=== PATIENT | female | born 1940 | race Caucasian/White ===

== ENCOUNTER → 2017-11-19 | Outpatient (CLI) | payer MEDICARE ==
[2017-11-19 11:14] LABS: Basophils # (A) 0.1 k/uL (0-0.2); Basophils % (A) 1 %; Eosinophils # (A) 0.3 k/uL (0-0.7); Eosinophils % (A) 6 %; HCT 45.3 % (34.0-46.0); HGB 14.4 gm/dL (11.4-16.0); Lymphocytes # (A) 1.5 k/uL (1.0-4.8); Lymphocytes % (A) 26 %; MCH 29.7 pg (25.0-35.0); MCHC 31.8 g/dL (31.0-37.0); MCV 93.5 fL (80.0-100.0); Mean Platelet Volume 7.1; Monocytes # (A) 0.7 k/uL (0-1.0); Monocytes % (A) 11 %; Neutrophils % (A) 53 %; Platelet Count 264 k/uL (150-450); RBC 4.84 m/uL (3.80-5.40); RDW 13.3 % (11.5-15.5); WBC 5.7 k/uL (3.8-10.6)
[2017-11-19 11:23] LABS: ALT 24 U/L (9-52); AST 20 U/L (14-36); Albumin 3.9 g/dL (3.5-5.0); Alkaline Phosphatase 63 U/L (38-126); Anion Gap 10 mmol/L; Blood Urea Nitrogen 24 mg/dL (7-17); Calcium 9.2 mg/dL (8.4-10.2); Carbon Dioxide 30 mmol/L (22-30); Chloride 106 mmol/L (98-107); Cholesterol 157 mg/dL (<200); Glucose 90 mg/dL (74-99); HDL Cholesterol 45 mg/dL (40-60); LDL Cholesterol,Calculated 89 mg/dL (0-99); Magnesium 2.1 mg/dL (1.6-2.3); Phosphorus 3.5 mg/dL (2.5-4.5); Potassium 4.7 mmol/L (3.5-5.1); Sodium 146 mmol/L (137-145); Total Bilirubin 0.4 mg/dL (0.2-1.3); Total Protein 6.7 g/dL (6.3-8.2); Triglycerides 116 mg/dL (<150)
[2017-11-19 11:38] LABS: T4, Free (Free Thyroxine) 2.36 ng/dL (0.78-2.19)
[2017-11-19 15:25] LABS: Vitamin D 25 Hydroxy 39.4 ng/mL (30.0-100.0)
[2017-11-19 16:27] LABS: Parathyroid Hormone Intact 57.6 pg/mL (14.0-72.0)
== END | disposition home or self-care (01) ==
LOC: LABWHC1 10:26
PROVIDERS: ATTEND Family Medicine
DX: E78.5 Hyperlipidemia, unspecified (principal); I12.9 Hypertensive chronic kidney disease with stage 1 through stage 4 chronic kidney disease, or unspecified chronic kidney disease; N18.3 Chronic kidney disease, stage 3 (moderate); E03.9 Hypothyroidism, unspecified
CPT/HCPCS: 36415; 80053; 80061; 82043; 82306; 82570; 83735; 83970; 84100; 84439; 84443; 84550; 85025

== ENCOUNTER → 2017-12-18 | Outpatient (CLI) | payer MEDICARE ==
--- NOTE | 2017-12-22 07:52 | MM ---
Reason for exam: screening (asymptomatic). Last mammogram was performed 1 year and 1 month ago. History: Patient is postmenopausal. Family history of breast cancer in mother and breast cancer in maternal grandmother. Took estrogen beginning at age 45. Physical Findings: A clinical breast exam by your physician is recommended on an annual basis and results should be correlated with mammographic findings. MG 3D Screening Mammo W/Cad Bilateral CC and MLO view(s) were taken. Prior study comparison: November 24, 2016, mammogram. August 30, 2015, mammogram. There are scattered fibroglandular densities. No significant changes when compared with prior studies. ASSESSMENT: Negative, BI-RAD 1 RECOMMENDATION: Routine screening mammogram of both breasts in 1 year.
== END | disposition home or self-care (01) ==
LOC: RADMAMWWP 12:46
PROVIDERS: ATTEND Family Medicine
DX: Z12.31 Encounter for screening mammogram for malignant neoplasm of breast (principal)
CPT/HCPCS: 77063; 77067

== ENCOUNTER → 2018-01-22 | Outpatient (CLI) | payer MEDICARE ==
--- NOTE | 2018-01-22 19:35 | US ---
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 chronic bladder infections, bladder suspension 01/2016 EXAM MEASUREMENTS: Right Kidney: 9.4 x 4.6 x 4.0 cm Left Kidney: 9.3 x 3.5 x 4.4 cm Right Kidney: No hydronephrosis or masses seen Left Kidney: No hydronephrosis or masses seen Bladder: wnl, distended Bilateral Jets seen There is no evidence for hydronephrosis at this point in time. No nephrolithiasis is seen. No matt s are identified. The urinary bladder is anechoic. Bilateral ureteral jets are seen. IMPRESSION: No evidence of renal mass or obstruction. No evidence of renal atrophy.
== END | disposition home or self-care (01) ==
LOC: RADUSWWP 16:18
PROVIDERS: ATTEND Urology
DX: N30.20 Other chronic cystitis without hematuria (principal)
CPT/HCPCS: 76770

== ENCOUNTER 2018-02-22 11:43 | Emergency (ER) | payer MEDICARE ==
[2018-02-22 11:53] VITALS: RESP 18; TEMP 97.8
[2018-02-22] MEDS ORDERED: FUROSEMIDE 10 MG/ML 4 ML VIAL IV STA (12:24)
[2018-02-22 13:36] LABS: Basophils # (A) 0.1 k/uL (0-0.2); Basophils % (A) 1 %; Eosinophils # (A) 0.2 k/uL (0-0.7); Eosinophils % (A) 3 %; HCT 44.6 % (34.0-46.0); HGB 14.8 gm/dL (11.4-16.0); Lymphocytes # (A) 1.2 k/uL (1.0-4.8); Lymphocytes % (A) 19 %; MCH 29.7 pg (25.0-35.0); MCHC 33.2 g/dL (31.0-37.0); MCV 89.4 fL (80.0-100.0); Monocytes # (A) 0.5 k/uL (0-1.0); Monocytes % (A) 9 %; Neutrophils % (A) 66 %; Platelet Count 238 k/uL (150-450); RBC 4.98 m/uL (3.80-5.40)
--- NOTE | 2018-02-22 13:36 | XR ---
EXAMINATION TYPE: XR chest 2V DATE OF EXAM: 02/22/2018 COMPARISON: NONE HISTORY: Difficulty in breathing. Lower extremity swelling. TECHNIQUE: Frontal and lateral views of the chest are obtained. FINDINGS: There is no focal air space opacity, pleural effusion, or pneumothorax seen. The cardiac silhouette size is within normal limits. The osseous structures are intact. IMPRESSION: No acute cardiopulmonary process.
[2018-02-22 13:49] LABS: Albumin 4.2 g/dL (3.5-5.0); Calcium 9.4 mg/dL (8.4-10.2); Total Bilirubin 0.7 mg/dL (0.2-1.3); Total Protein 7.1 g/dL (6.3-8.2)
[2018-02-22 13:54] LABS: Potassium 4.7 mmol/L (3.5-5.1)
[2018-02-22 14:02] LABS: Creatine Kinase 61 U/L (30-135)
[2018-02-22 14:13] LABS: Troponin I <0.012 ng/mL (0.000-0.034)
--- NOTE | 2018-02-22 14:15 | ED ---
Extremity Problem HPI - General Chief complaint: Extremity Problem,Nontraumatic Stated complaint: Swelling in both feet Time Seen by Provider: 02/22/18 12:16 Source: patient Mode of arrival: ambulatory Limitations: no limitations - History of Present Illness Initial comments: This 77-year-old white female presents with a complaint of some lower extremity swelling bilaterally. She states that this is been going on for over a week. She has occasional pain into her lower legs and into her calf region. She states that it seems worse at night and better in the morning. She called her primary care physician's office today and they sent her in for further evaluation. She does note that she's had some shortness of breath with exertion for several months. She denies any chest pain. She does have a history of previous DVT in her left leg and was on blood thinners for a while approximately 10 years ago. No other complaints or modifying factors. She does not take any diuretics. She has no history of congestive heart failure or other cardiac or pulmonary conditions. - Related Data Home Medications Medication Instructions Recorded Confirmed Aspirin 81 mg PO DAILY 02/22/18 02/22/18 Atenolol 25 mg PO DAILY 02/22/18 02/22/18 Cholecalciferol [Vitamin D3] 1,000 unit PO DAILY 02/22/18 02/22/18 Cranberry Fruit Extract [Cranberry] 500 mg PO TID 02/22/18 02/22/18 L.acidoph,Paracasei, B.lactis 1 cap PO DAILY 02/22/18 02/22/18 [Probiotic] Levothyroxine Sodium [Synthroid] 100 mcg PO DAILY 02/22/18 02/22/18 NIFEdipine [NIFEdipine ER] 90 mg PO DAILY 02/22/18 02/22/18 Polyethylene Glycol 3350 [Miralax] 17 gm PO DAILY 02/22/18 02/22/18 Pravastatin Sodium [Pravachol] 20 mg PO HS 02/22/18 02/22/18 Ranitidine HCl 150 mg PO HS 02/22/18 02/22/18 Sertraline [Zoloft] 50 mg PO DAILY 02/22/18 02/22/18 Temazepam [Restoril] 15 mg PO HS PRN 02/22/18 02/22/18 Vit C/E/Zn/Coppr/Lutein/Zeaxan 1 cap PO BID 02/22/18 02/22/18 [Preservision Areds 2 Softgel] traMADol HCl [Ultram] 50 mg PO TID PRN 02/22/18 02/22/18 Previous Rx's Medication Instructions Recorded Furosemide [Lasix] 20 mg PO DAILY #10 tab 02/22/18 Potassium Chloride [K-Tab ER] 10 meq PO DAILY #10 tablet.er 02/22/18 Allergies Allergy/AdvReac Type Severity Reaction Status Date / Time Sulfa (Sulfonamide Allergy Rash/Hives Verified 02/22/18 11:59 Antibiotics) Review of Systems ROS Statement: Those systems with pertinent positive or pertinent negative responses have been documented in the HPI. ROS Other: All systems not noted in ROS Statement are negative. Past Medical History Past Medical History: Hyperlipidemia, Hypertension, Osteoarthritis (OA), Thyroid Disorder Additional Past Medical History / Comment(s): insomnia, knee pain, nocturia, right sided trigger finger, vericose vein History of Any Multi-Drug Resistant Organisms: None Reported Past Surgical History: Bladder Surgery, Hysterectomy, Orthopedic Surgery Additional Past Surgical History / Comment(s): parathyroidectomy, bladder suspension, Past Psychological History: Depression Smoking Status: Never smoker Past Alcohol Use History: None Reported Past Drug Use History: None Reported General Exam - General Exam Comments Initial Comments: GENERAL: The patient is well nourished and well hydrated. VITAL SIGNS: Heart rate, blood pressure, respiratory rate reviewed as recorded in nurse's notes. EYES: Pupils are round and reactive. Extraocular movements are intact. No conjunctival / lid redness or swelling. ENT: No external evidence of injury, swelling, or ecchymosis. Airway is patent. Throat is clear. NECK: Nontender. No swelling or evidence of injury. No subcutaneous emphysema. Trachea is midline. No thyroid mass. HEART: Regular rate and rhythm. Good peripheral pulses. LUNGS/CHEST: Breath sounds clear and equal bilaterally. No rales, rhonchi, or wheezes. No ecchymosis, subcutaneous emphysema, or tenderness. ABDOMEN: Abdomen soft without tenderness. No palpable masses or organomegaly. No peritoneal signs. No abdominal wall swelling or ecchymosis. EXTREMITIES: There may be some slight tenderness noted to her bilateral calf regions. No edema is noted. Normal muscle tone and function. No thoracolumbar tenderness. NEUROLOGIC: Sensation is grossly intact. Cranial nerve exam reveals face is symmetrical, tongue is midline, speech is clear. SKIN: No abrasions or ecchymosis is noted. No induration or masses noted. PSYCHIATRIC: Alert and oriented. Appropriate behavior and judgment. Limitations: no limitations Course Vital Signs 02/22/18 02/22/18 02/22/18 11:48 14:17 14:50 Temperature 97.8 F Pulse Rate 70 61 65 Respiratory 18 18 18 Rate Blood Pressure 168/70 166/76 162/72 O2 Sat by Pulse 97 98 97 Oximetry 02/22/18 15:44 Temperature 97.8 F Pulse Rate 58 L Respiratory 18 Rate Blood Pressure 152/69 O2 Sat by Pulse 98 Oximetry Medical Decision Making - Medical Decision Making The patient was seen and examined. All diagnostics were reviewed. The EKG shows a sinus bradycardia at a rate of 56. There is no acute ST-T wave changes noted. The SD interval is 158, QRS duration is 80, and the QTC intervals 449. An IV was started and she did receive 40 mg of Lasix intravenously. The lower extremity venous Doppler ultrasound is somewhat limited due to patient's large body habitus but does not show any definitive DVT. The laboratories all essentially within normal limits except for an elevated d-dimer. The chest x- ray does not show any acute processes. The computed tomography scan of the chest with IV contrast does not show any evidence of pulmonary embolism or acute process. She is in no distress on recheck. She did receive some Lasix and had good output. Overall, it is felt as though she may have some slight dependent edema. It is felt as though she may benefit from some Lasix on an outpatient basis. She understands and agrees with this plan and leaves in no distress. She apparently has a previously tried some PARVIN hose but was unable to tolerate these as they cause increased pain. - Lab Data Result diagrams: 02/22/18 13:00 02/22/18 13:00 Lab Results 02/22/18 02/22/18 02/22/18 Range/Units 13:00 13:00 13:00 WBC 6.0 (3.8-10.6) k/uL RBC 4.98 (3.80-5.40) m/uL Hgb 14.8 (11.4-16.0) gm/dL Hct 44.6 (34.0-46.0) % MCV 89.4 (80.0-100.0) fL MCH 29.7 (25.0-35.0) pg MCHC 33.2 (31.0-37.0) g/dL RDW 14.0 (11.5-15.5) % Plt Count 238 (150-450) k/uL Neutrophils % 66 % Lymphocytes % 19 % Monocytes % 9 % Eosinophils % 3 % Basophils % 1 % Neutrophils # 4.0 (1.3-7.7) k/uL Lymphocytes # 1.2 (1.0-4.8) k/uL Monocytes # 0.5 (0-1.0) k/uL Eosinophils # 0.2 (0-0.7) k/uL Basophils # 0.1 (0-0.2) k/uL PT (9.0-12.0) sec INR (<1.2) APTT (22.0-30.0) sec D-Dimer (<0.60) mg/L FEU Sodium 145 (137-145) mmol/L Potassium 4.7 (3.5-5.1) mmol/L Chloride 105 (98-107) mmol/L Carbon Dioxide 26 (22-30) mmol/L Anion Gap 14 mmol/L BUN 31 H (7-17) mg/dL Creatinine 0.88 (0.52-1.04) mg/dL Est GFR (CKD-EPI)AfAm 74 (>60 ml/min/1.73 sqM) Est GFR (CKD-EPI)NonAf 64 (>60 ml/min/1.73 sqM) Glucose 98 (74-99) mg/dL Calcium 9.4 (8.4-10.2) mg/dL Total Bilirubin 0.7 (0.2-1.3) mg/dL AST 28 (14-36) U/L ALT 25 (9-52) U/L Alkaline Phosphatase 53 (38-126) U/L Total Creatine Kinase 61 (30-135) U/L CK-MB (CK-2) 1.0 (0.0-2.4) ng/mL CK-MB (CK-2) Rel Index 1.6 Troponin I <0.012 (0.000-0.034) ng/mL NT-Pro-B Natriuret Pep pg/mL Total Protein 7.1 (6.3-8.2) g/dL Albumin 4.2 (3.5-5.0) g/dL 02/22/18 02/22/18 Range/Units 13:00 13:00 WBC (3.8-10.6) k/uL RBC (3.80-5.40) m/uL Hgb (11.4-16.0) gm/dL Hct (34.0-46.0) % MCV (80.0-100.0) fL MCH (25.0-35.0) pg MCHC (31.0-37.0) g/dL RDW (11.5-15.5) % Plt Count (150-450) k/uL Neutrophils % % Lymphocytes % % Monocytes % % Eosinophils % % Basophils % % Neutrophils # (1.3-7.7) k/uL Lymphocytes # (1.0-4.8) k/uL Monocytes # (0-1.0) k/uL Eosinophils # (0-0.7) k/uL Basophils # (0-0.2) k/uL PT 10.3 (9.0-12.0) sec INR 1.1 (<1.2) APTT 24.7 (22.0-30.0) sec D-Dimer 1.31 H (<0.60) mg/L FEU Sodium (137-145) mmol/L Potassium (3.5-5.1) mmol/L Chloride (98-107) mmol/L Carbon Dioxide (22-30) mmol/L Anion Gap mmol/L BUN (7-17) mg/dL Creatinine (0.52-1.04) mg/dL Est GFR (CKD-EPI)AfAm (>60 ml/min/1.73 sqM) Est GFR (CKD-EPI)NonAf (>60 ml/min/1.73 sqM) Glucose (74-99) mg/dL Calcium (8.4-10.2) mg/dL Total Bilirubin (0.2-1.3) mg/dL AST (14-36) U/L ALT (9-52) U/L Alkaline Phosphatase (38-126) U/L Total Creatine Kinase (30-135) U/L CK-MB (CK-2) (0.0-2.4) ng/mL CK-MB (CK-2) Rel Index Troponin I (0.000-0.034) ng/mL NT-Pro-B Natriuret Pep 376 pg/mL Total Protein (6.3-8.2) g/dL Albumin (3.5-5.0) g/dL Disposition Clinical Impression: Lower extremity pain, Hypertension, Swelling of both lower extremities, Dyspnea on exertion, Dependent edema Disposition: HOME SELF-CARE Condition: Good Instructions: Dyspnea (ED), Leg Edema (ED), Hypertension (ED) Prescriptions: Furosemide [Lasix] 20 mg PO DAILY #10 tab Potassium Chloride [K-Tab ER] 10 meq PO DAILY #10 tablet.er Is patient prescribed a controlled substance at d/c from ED?: No Referrals: Joy Ha MD [Primary Care Provider] - 1-2 days Time of Disposition: 16:27 Decision Date: 02/22/18 Decision Time: 16:27
[2018-02-22 14:20] LABS: INR 1.1 (<1.2); Partial Thromboplastin Time 24.7 sec (22.0-30.0); Prothrombin Time 10.3 sec (9.0-12.0)
[2018-02-22 14:24] LABS: D-Dimer 1.31 mg/L FEU (<0.60)
[2018-02-22] MEDS ORDERED: RX INFO: IV CONTRAST WAS GIVEN 1 EACH MISC MISCELLANE PRN (14:27)
--- NOTE | 2018-02-22 14:58 | US ---
EXAMINATION TYPE: US venous doppler duplex LE DATE OF EXAM: 02/22/2018 2:45 PM COMPARISON: NONE CLINICAL HISTORY: Pain. Bilateral feet edema and leg pain. History of DVT left leg 2007 SIDE PERFORMED: Bilateral TECHNIQUE: The lower extremity deep venous system is examined utilizing real time linear array sonog bonita with graded compression, doppler sonography and color-flow sonography. VESSELS IMAGED: External Iliac Vein (EIV) Common Femoral Vein Deep Femoral Vein Greater Saphenous Vein * Femoral Vein Popliteal Vein Small Saphenous Vein * Proximal Calf Veins (* superficial vessels) Technical limitations due to patient's body habitus Right Leg: No evidence of acute DVT as visualized Left Leg: No evidence of acute DVT as visualized Grayscale, color doppler, spectral doppler imaging performed of the deep veins of the bilateral lower extremities. There is normal flow, compressibility, vascular waveforms. IMPRESSION: Suboptimal study per technologist without convincing evidence for acute DVT in either lo wer extremity.
--- NOTE | 2018-02-22 15:41 | CT ---
EXAMINATION TYPE: CT angio chest DATE OF EXAM: 02/22/2018 COMPARISON: NONE HISTORY: Shortness of breath and bilateral lower leg swelling CT DLP: 304.9 mGycm. Automated Exposure Control for Dose Reduction was Utilized. CONTRAST: CTA scan of the thorax is performed with IV Contrast, patient injected with 70 mL of Isovue 370, pulm onary embolism protocol. MIP Images are created on CT scanner and reviewed. FINDINGS: LUNGS: There is dependent atelectasis in both lower lobes. There is no suspicious consolidation or fo tejal groundglass opacity. No concerning parenchymal nodule or mass is present bilaterally. No pleural effusion or pneumothorax is seen. Tracheobronchial tree is patent. MEDIASTINUM: There is slightly suboptimal bolus with near equal contrast seen in the right and left h eart systems but there is no convincing CT evidence for acute pulmonary embolism. There are no great er than 1 cm hilar or mediastinal lymph nodes. No pericardial effusion is seen. Heart size is upper limits of normal. There is mild to moderate peripheral plaque in the descending aorta. OTHER: Dependent large 2.1 cm gallstone is seen in gallbladder.14 there is subcentimeter low dense le regan right hepatic lobe axial image 118 is too small to further characterize per presumed benign. The re is moderate multilevel spurring in the thoracic spine. IMPRESSION: 1. No CT evidence for acute pulmonary embolism. 2. No suspicious acute pulmonary process.
[2018-02-22 15:45] VITALS: BP 152/69; PULSE 58
== END 2018-02-22 16:36 | disposition home or self-care (01) ==
LOC: EC 11:43
DX: I10 Essential (primary) hypertension (principal); R60.0 Localized edema; M79.661 Pain in right lower leg; M79.662 Pain in left lower leg; R06.02 Shortness of breath; R00.0 Tachycardia, unspecified; R79.1 Abnormal coagulation profile; E78.5 Hyperlipidemia, unspecified; E07.9 Disorder of thyroid, unspecified; F32.9 Major depressive disorder, single episode, unspecified; M19.90 Unspecified osteoarthritis, unspecified site; Z79.82 Long term (current) use of aspirin; Z79.899 Other long term (current) drug therapy; Z88.2 Allergy status to sulfonamides
CPT/HCPCS: 36415; 93005; 85379; 83880; 80053; 82550; 82553; 84484; 85025; 85610; 85730; 71046; 93970; 71275; 99284; 96374; J1940; Q9967

== ENCOUNTER → 2018-03-22 | Outpatient (CLI) | payer MEDICARE ==
--- NOTE | 2018-03-23 10:26 | ECHOF ---
Referral Reason:I10 Hypertension R06.09 dyspnea on exertion MEASUREMENTS -------- HEIGHT: 152.4 cm WEIGHT: 89.8 kg BP: RVIDd: 3.1 cm (< 3.3) IVSd: 0.7 cm (0.6 - 1.1) LVIDd: 4.4 cm (3.9 - 5.3) LVPWd: 0.9 cm (0.6 - 1.1) IVSs: 1.3 cm LVIDs: 3.3 cm LVPWs: 1.3 cm LA Diam: 3.9 cm (2.7 - 3.8) LAESV Index (A-L): 31.51 ml/m Ao Diam: 3.4 cm (2.0 - 3.7) AV Cusp: 1.8 cm (1.5 - 2.6) LA Diam: 4.4 cm (2.7 - 3.8) MV EXCURSION: 18.395 mm (> 18.000) MV EF SLOPE: 123 mm/s (70 - 150) EPSS: 0.2 cm MV E Min: 0.89 m/s MV DecT: 110 ms MV A Min: 0.87 m/s MV E/A Ratio: 1.02 AR PHT: 465 ms RAP: 5.00 mmHg RVSP: 41.95 mmHg FINDINGS -------- Sinus rhythm. This was a technically good study. LV size, wall thickness and systolic function are normal, with an EF greater than 55%. The left lizett tricular size is normal. The right ventricle is normal in size. The left atrium is mildly dilated. LA is midly dilated 29-33ml/m2. The right atrial size is normal. There is mild aortic valve sclerosis. There is mild aortic regurgitation. Mild mitral annular calcification present. Mild mitral regurgitation is present. Mild tricuspid regurgitation present. There is mild pulmonary hypertension. The right ventricular systolic pressure, as measured by Doppler, is 41.95mmHg. There is no pulmonic regurgitation present. The aortic root size is normal. There is no pericardial effusion. CONCLUSIONS -------- 1. Sinus rhythm. 2. LV size, wall thickness and systolic function are normal, with an EF greater than 55%. 3. The left ventricular size is normal. 4. The right ventricle is normal in size. 5. The left atrium is mildly dilated. 6. LA is midly dilated 29-33ml/m2. 7. The right atrial size is normal. 8. There is mild aortic valve sclerosis. 9. There is mild aortic regurgitation. 10. Mild mitral annular calcification present. 11. Mild mitral regurgitation is present. 12. Mild tricuspid regurgitation present. 13. There is mild pulmonary hypertension. 14. The right ventricular systolic pressure, as measured by Doppler, is 41.95mmHg. 15. There is no pulmonic regurgitation present. 16. The aortic root size is normal. 17. There is no pericardial effusion. SUPERVISOR FINISHING: Val Jimenez RDCS
== END ==
LOC: RADECHMAIN 13:17
PROVIDERS: ATTEND Family Medicine
DX: I08.3 Combined rheumatic disorders of mitral, aortic and tricuspid valves (principal); I27.20 Pulmonary hypertension, unspecified
CPT/HCPCS: 93306

== ENCOUNTER → 2018-06-08 | Outpatient (CLI) | payer MEDICARE ==
--- NOTE | 2018-06-08 13:18 | XR ---
EXAMINATION TYPE: XR chest 2V DATE OF EXAM: 06/08/2018 COMPARISON: 02/22/2018 INDICATION: Dyspnea TECHNIQUE: Frontal and lateral views of the chest are obtained. FINDINGS: The heart size is normal. The pulmonary vasculature is normal. The lungs are clear. IMPRESSION: 1. No acute pulmonary process.
== END | disposition home or self-care (01) ==
LOC: RADXRMAIN 12:03
PROVIDERS: ATTEND Family Medicine
DX: R06.00 Dyspnea, unspecified (principal); R53.83 Other fatigue
CPT/HCPCS: 71046

== ENCOUNTER → 2018-06-09 | Outpatient (CLI) | payer MEDICARE ==
--- NOTE | 2018-06-09 18:29 | CT ---
EXAMINATION TYPE: CT angio chest DATE OF EXAM: 06/09/2018 6:21 PM COMPARISON: 02/22/2018 HISTORY: SOB, weakness, elevated d-dimer CT DLP: 532 mGycm Automated exposure control for dose reduction was used. CONTRAST: CTA scan of the thorax is performed with IV Contrast, patient injected with 80 mL of Isovue 370, pulm onary embolism protocol. There are 3-D post processed images.. FINDINGS: The lungs are clear of infiltrate. There is no pleural effusion. Heart size is normal. There is no pe ricardial effusion. There is subsegmental atelectasis at the right posterior lung base. There is normal contrast opacification of the pulmonary arteries. I see no filling defect. Thoracic a dandre is atheromatous. There is no mediastinal adenopathy. There are no hilar masses. There is spurrin g in the thoracic spine. IMPRESSION: NO EVIDENCE OF PULMONARY EMBOLISM. MINIMAL FIBROTIC CHANGE AT THE RIGHT POSTERIOR LUNG BASE. NO LEE E COMPARED TO OLD EXAM. LARGE CALCIFIED GALLSTONE NOTED.
== END | disposition home or self-care (01) ==
LOC: RADCTMAIN 17:08
PROVIDERS: ATTEND Family Medicine
DX: R06.00 Dyspnea, unspecified (principal); R79.89 Other specified abnormal findings of blood chemistry
CPT/HCPCS: 71275; Q9967

== ENCOUNTER → 2018-07-14 | Outpatient (CLI) | payer MEDICARE ==
[2018-07-14 13:27] LABS: Albumin 4.3 g/dL (3.5-5.0); Calcium 9.8 mg/dL (8.4-10.2); Magnesium 2.2 mg/dL (1.6-2.3); Phosphorus 4.1 mg/dL (2.5-4.5); Potassium 4.8 mmol/L (3.5-5.1); Total Bilirubin 0.8 mg/dL (0.2-1.3); Total Protein 7.5 g/dL (6.3-8.2); Uric Acid 4.1 mg/dL (3.7-7.4)
[2018-07-14 13:34] LABS: HCT 47.2 % (34.0-46.0); HGB 15.2 gm/dL (11.4-16.0); MCH 29.6 pg (25.0-35.0); MCHC 32.3 g/dL (31.0-37.0); MCV 91.7 fL (80.0-100.0); Platelet Count 286 k/uL (150-450); RBC 5.15 m/uL (3.80-5.40)
[2018-07-14 13:43] LABS: T4, Free (Free Thyroxine) 1.74 ng/dL (0.78-2.19)
== END | disposition home or self-care (01) ==
LOC: LABWHC1 11:17
PROVIDERS: ATTEND Family Medicine
DX: E78.5 Hyperlipidemia, unspecified (principal); E03.9 Hypothyroidism, unspecified; N18.3 Chronic kidney disease, stage 3 (moderate)
CPT/HCPCS: 36415; 80053; 80061; 82043; 82570; 83735; 83970; 84100; 84439; 84443; 84550; 85027

== ENCOUNTER → 2018-08-20 | Outpatient (CLI) | payer MEDICARE | END | disposition home or self-care (01) | LOC: LABPAT 12:20 | PROVIDERS: ATTEND Orthopaedic Surgery | DX: Z01.812 Encounter for preprocedural laboratory examination (principal) | CPT/HCPCS: 87070 ==

== ENCOUNTER → 2018-09-07 | Outpatient (CLI) | payer MEDICARE | LOC: LABWHC1 12:00 | PROVIDERS: ATTEND Orthopaedic Surgery | DX: Z01.812 Encounter for preprocedural laboratory examination (principal); M16.11 Unilateral primary osteoarthritis, right hip | CPT/HCPCS: 36415; 86850; 86900; 86901 ==

== ENCOUNTER 2018-09-14 09:19 | Inpatient (IN) | payer MEDICARE ==
[2018-09-08 11:39] VITALS: BMI 37.2
--- NOTE | 2018-09-13 09:53 | HP ---
HISTORY AND PHYSICAL CHIEF COMPLAINT: Right hip pain. HISTORY OF PRESENT ILLNESS: The patient is a 78-year-old retired female who presents with progressive right hip pain for pain, worsening over the past couple years. She notes groin and thigh pain with weightbearing activities and at night. She has tried medications with only partial temporary relief. PAST MEDICAL HISTORY: Significant for chronic renal insufficiency, arthritis, hypertension, and depression. PAST SURGICAL HISTORY: Significant for partial thyroidectomy in addition to hysterectomy. CURRENT MEDICATIONS: 1. Atenolol. 2. Levothyroxine. 3. Nifedipine. 4. Pravastatin. 5. Tramadol. 6. Zantac. 7. Zoloft. She has allergies to SULFA. FAMILY HISTORY: Noncontributory. SOCIAL HISTORY: Negative for current tobacco or alcohol use. 16 PINT REVIEW OF SYSTEM: Otherwise reviewed and is noncontributory. PHYSICAL EXAMINATION: On examination, the patient is approximately 5 foot 1, 196 pounds of endomorphic habitus. She has a BMI of 37.03. HEENT exam is nonfocal. Neck is supple. Passive motion of the right hip. flexion 80 degrees, external rotation with the hip flexed 50 degrees, internal rotation is 10 degrees with pain. Her distal neurovascular exam appears intact in the right lower extremity. She does have approximately 1 cm shortening right lower extremity compared to the left. Her gait pattern is mildly antalgic. X-rays to include AP and lateral views of the right hip obtained in the office show severe osteoarthrosis with [id number] changes. IMPRESSION: 1. Right hip severe osteoarthrosis. 2. Increased body mass index-body mass index of 37.03. RECOMMENDATIONS: I talked to the patient at length regarding her condition and treatment options. At this point, she is quite symptomatic because of pain related to her osteoarthrosis. After a thorough discussion, she opts to proceed with surgery. We will plan to proceed with right total hip arthroplasty. Risks and benefits were discussed at length in layman's terms. We will institute DVT prophylaxis postoperatively. She underwent preoperative medical evaluation by Dr. Ha. MARCIN / KEYONNA: [id number] /
[~2018-09-14 09:19] MED LIST: ACETAMINOPHEN TAB 500 MG TAB PO ONE; DEXAMETHASONE SOD PHOSPHATE 10 MG/ML 1 ML VIAL IV ONE; LIDOCAINE 1% 20 ML VIAL (10MG/ML) FOR IV START INTRADERMA PRN; MELOXICAM 7.5 MG TAB PO ONE; ONDANSETRON 4 MG/2 ML VIAL IVP ONE; SCOPOLAMINE 1.5MG/72HR PATCH TRANSDERM ONE; TRANEXAMIC ACID 1,000 MG in SODIUM CHLORIDE 0.9% 50 ML IVPB ONE; ceFAZolin IN SWFI 2 GM/20 ML SYRINGE IVP ONE
[2018-09-14] MEDS: LACTATED RINGERS 1,000 ML IV SCH (10:32)
[2018-09-14] MEDS ORDERED: ceFAZolin 3,000 MG in SODIUM CHLORIDE 0.9% IRRIGATIO 3,000 ML IRRIGATION ONE (11:45)
[2018-09-14] MEDS ORDERED: MAGNESIUM HYDROXIDE 2,400 MG/10 ML CUP PO PRN (13:24)
[2018-09-14] MEDS ORDERED: LACTATED RINGERS 1,000 ML IV ONE (13:24)
[2018-09-14] MEDS ORDERED: ONDANSETRON 4 MG/2 ML VIAL IVP PRN (13:24)
[2018-09-14] MEDS ORDERED: HYDROmorphone 1 MG/ML 1 ML SYRINGE IVP PRN ×2 (13:24)
[2018-09-14] MEDS ORDERED: NALOXONE 0.4 MG/ML 1 ML VIAL IV PRN (13:24)
[2018-09-14] MEDS ORDERED: HYDROcodone/APAP 5-325MG 1 EACH TAB PO PRN (13:24)
--- NOTE | 2018-09-14 13:48 | P.OP ---
Date of Procedure: 09/14/18 Preoperative Diagnosis: Severe right hip osteoarthrosis Postoperative Diagnosis: Same Procedure(s) Performed: Right total hip arthroplastyanterior approach, removal cortical screw right proximal femur Implants: Depuy Corail size 12 high offset collared press-fit femoral stem, 32 mm +1 cobalt chrome femoral head, 50 mm acetabular shell with neutral polyethylene liner. Anesthesia: MAC, spinal Surgeon: Glenn Duong [employer] Wafers #1: Stef Amin Estimated Blood Loss (ml): 500 Pathology: other (Femoral head) Condition: stable Disposition: PACU Indications for Procedure: The patient is a 78-year-old female who presents with progressive right hip pain secondary to osteoarthrosis despite conservative measures. A discussion of the risks and benefits of operative intervention versus continued conservative measures was made with the patient. She opted to proceed with surgery. Operative risks to include infection, neurovascular injury, development of blood clots, possible fracture, possible leg length discrepancy, possible instability and need for subsequent procedures was discussed. Informed consent was obtained. Operative Findings: As below Description of Procedure: The patient was brought to the operating room, and after induction of spinal anesthesia was placed supine on the Katerina table. Positioning was checked with fluoroscopy. The right hip was then prepped and draped in a normal fashion. A 12 cm incision was then made starting 2 fingerbreadths distal and 3 finger breaths posterior to the ASIS in line with the proximal femur. The skin was incised sharply. Subcutaneous tissues were divided sharply. Electrocautery was used for hemostasis. The fascia was split in line with skin incision. The interval between the sartorius and tensor fascia angel was then bluntly developed. The posterior fascia was opened with electrocautery. The lateral circumflex vessels were identified and cauterized prior to sectioning. A retractor was placed along the superior femoral neck as well as the anterior acetabular rim. A wide capsulotomy was performed. The neck cut was then made at a 45 angle to the shaft approximately 1 1/2 cm above the level of the lesser trochanter. The head was extracted. Attention was then paid towards preparing the acetabular. Anterior and posterior retractors were placed. The remaining capsular labral tissue sharply debrided clearly defining the acetabular margins. I began reaming with a 43 mm reamer taking care to initially medialize then reaming at 45 of abduction and 20 of anteversion. Sequential reaming is performed up to 49 mm. A trial 50 mm acetabular shell was inserted in the same orientation and was fully seated. There was good rim fit and stability. Positioning was checked with fluoroscopy. The final 50 mm acetabular shell was inserted again at 45 of abduction and 20 of anteversion. This was fully seated. There was good rim fit and stability. Again fluoroscopy was used to check the adequacy of placement. A 6.5 x 30 mm cancellus screw was inserted with good purchase. A neutral polyethylene liner was gently impacted. Care was taken to avoid any soft tissue interposition. Pulsatile lavage was utilized. Attention was then paid towards preparing the proximal femur. The saddle region was cleared of soft tissue. A canal finder was used to find the femoral canal. Sequential broaching was performed up to size 12 taking care to lateralize proximally. I did encounter obstruction by a cortical screw during placement of the broach. This was removed. A calcar mill was used to fashion the medial calcar. There was good rotational stability. A high offset neck along with a 32mm +1 head was placed. The hip was gently reduced. Fluoroscopy was used to check the adequacy of positioning along with leg lengths. I felt both were good. The hip was gently dislocated. The trial components were removed. The final size 12 collared high offset press-fit femoral stem was inserted parallel to the posterior cortex. This was fully seated and there was good rotational stability. A 32mm +1 cobalt chrome femoral head was placed. This was gently impacted. The hip was then gently reduced. Final fluoroscopic view showed adequate placement implant along with mormon of leg length. Stability was checked with 80 of external rotation and 60 of extension of the right hip. The wound was irrigated with sterile lavage. The fascia was closed with running 0 Vicryl suture. There was minimal drainage therefore a deep drain was not placed. The second dose of IV TXA was given. The subcutaneous tissues were reapproximated interrupted 2-0 Vicryl sutures. The skin was reapproximated with 3-0 subcuticular strata fix suture. Skin tape and adhesive was applied. A sterile dressing was applied. The patient was then awoken from sedation and transferred to recovery room in good condition. Blood loss was estimated at 500 mL. Cell Saver was given back. No complications were incurred. Sponge and needle counts were correct at the end of the case. Duc OH assisted during the major components is case to include exposure, bone resection, implantation, and closure.
--- NOTE | 2018-09-14 14:05 | FL ---
Fluoroscopy History: RT HIP REPLACEMENT 50 SEC FL
[2018-09-14] MEDS: HYDROmorphone 0.5 MG/0.5 ML SYRINGE IVP PRN ×2 (14:14→14:22)
[2018-09-14] MEDS: HYDROcodone/APAP 5-325MG 1 EACH TAB PO PRN (16:33)
[2018-09-14] MEDS: ceFAZolin IN SWFI 2 GM/20 ML SYRINGE IVP SCH (18:34)
[2018-09-14] MEDS: traMADol 50 MG TAB PO SCH ×2 (18:36→21:36)
[2018-09-14] MEDS ORDERED: FAMOTIDINE 20 MG TAB PO PRN (19:41)
[2018-09-14] MEDS ORDERED: NON-FORMULARY DRUG (Cranberry Fruit Extract [Cranberry] 500 MG) PO SCH (21:00)
--- NOTE | 2018-09-14 21:05 | P.CONS ---
History of Present Illness - Reason for Consult Consult date: 09/14/18 Medical management of hypertension/hyperlipidemia Requesting physician: Glenn Duong - Chief Complaint Medical management of hypertension hyperlipidemia and hypothyroidism - History of Present Illness The patient is a 78-year-old female with a past medical history of essential hypertension, dyslipidemia, hypothyroidism who is admitted to the primary orthopedic service under Dr. Duong Who is currently postop day #0 to having right total hip arthroplasty anterior approach secondary to history of severe right hip osteoarthritis, patient currently is doing well rates her pain as moderate, she denies any numbness or tingling in the extremities and is able to move it well. She denies any chest pain, shortness of breath, headaches, confusion, nausea and vomiting. Review of Systems Pertinent positives per HPI, all other review of systems otherwise negative Past Medical History Past Medical History: Cancer, Deep Vein Thrombosis (DVT), GERD/Reflux, Hyperlipidemia, Hypertension, Osteoarthritis (OA), Thyroid Disorder Additional Past Medical History / Comment(s): insomnia, chronic UTI's, right sided trigger finger, vericose veins, constipation, hx "ischemic colitis" 2010, skin cancer History of Any Multi-Drug Resistant Organisms: None Reported Past Surgical History: Bladder Surgery, Hysterectomy, Orthopedic Surgery Additional Past Surgical History / Comment(s): parathyroidectomy, bladder suspension, sugery for fx rt femur Past Anesthesia/Blood Transfusion Reactions: No Reported Reaction Past Psychological History: Depression Smoking Status: Never smoker Past Alcohol Use History: None Reported Past Drug Use History: None Reported - Past Family History Father Family Medical History: Cancer Medications and Allergies Home Medications Medication Instructions Recorded Confirmed Type Aspirin 81 mg PO DAILY 02/22/18 09/14/18 History Cholecalciferol [Vitamin D3] 2,000 unit PO DAILY 02/22/18 09/14/18 History Cranberry Fruit Extract [Cranberry] 500 mg PO BID 02/22/18 09/14/18 History Furosemide [Lasix] 20 mg PO DAILY #10 tab 02/22/18 09/14/18 Rx L.acidoph,Paracasei, B.lactis 1 cap PO AC-SUPPER 02/22/18 09/14/18 History [Probiotic] Levothyroxine Sodium [Synthroid] 100 mcg PO DAILY 02/22/18 09/14/18 History NIFEdipine [NIFEdipine ER] 90 mg PO PC-SUPPER 02/22/18 09/14/18 History Potassium Chloride [K-Tab ER] 10 meq PO DAILY #10 tablet.er 02/22/18 09/14/18 Rx Pravastatin Sodium [Pravachol] 20 mg PO HS 02/22/18 09/14/18 History Ranitidine HCl 150 mg PO DAILY PRN 02/22/18 09/14/18 History Sertraline [Zoloft] 100 mg PO DAILY 02/22/18 09/14/18 History Vit C/E/Zn/Coppr/Lutein/Zeaxan 1 cap PO W/SUPPER 02/22/18 09/14/18 History [Preservision Areds 2 Softgel] traMADol HCl [Ultram] 50 mg PO TID PRN 02/22/18 09/14/18 History Losartan Potassium [Cozaar] 50 mg PO QAM 09/08/18 09/14/18 History Methenamine Hippurate [Hiprex] 1 gm PO QID 09/08/18 09/14/18 History Metoprolol Tartrate [Lopressor] 25 mg PO QAM 09/08/18 09/14/18 History traZODone HCL [Desyrel] 50 mg PO HS 09/08/18 09/14/18 History Polyethylene Glycol 3350 [Miralax] 17 gm PO Q48H 09/14/18 09/14/18 History Allergies Allergy/AdvReac Type Severity Reaction Status Date / Time Sulfa (Sulfonamide Allergy Rash/Hives Verified 09/14/18 15:37 Antibiotics) Physical Exam Vitals: Vital Signs Temp Pulse Pulse Pulse Resp BP BP 09/14/18 16:15 58 L 136/68 09/14/18 16:00 61 133/69 09/14/18 15:45 60 127/75 09/14/18 15:30 64 162/80 09/14/18 15:15 57 L 163/78 09/14/18 15:00 63 166/78 09/14/18 14:45 97.9 F 60 16 175/72 09/14/18 14:09 57 L 16 156/70 09/14/18 13:54 54 L 16 160/73 09/14/18 13:39 97 F L 58 L 16 132/80 09/14/18 13:35 57 L 16 148/54 09/14/18 10:17 97.5 F L 59 L 18 141/62 Pulse Ox 09/14/18 16:15 09/14/18 16:00 09/14/18 15:45 09/14/18 15:30 09/14/18 15:15 09/14/18 15:00 09/14/18 14:45 97 09/14/18 14:09 95 09/14/18 13:54 100 09/14/18 13:39 98 09/14/18 13:35 96 09/14/18 10:17 96 Intake and Output 09/14/18 09/14/18 09/14/18 06:59 14:59 22:59 Intake Total 1101 222 Output Total 500 Balance 601 222 Intake: IV 1101 Oral 222 Output: Estimated Blood Loss 500 Other: Weight 89.358 kg Constitutional: No acute distress, conversant, pleasant Eyes: Anicteric sclerae, moist conjunctiva, no lid-lag, PERRLA ENMT: NC/AT,Oropharynx clear, no erythema, exudates Neck:Supple, FROM, no masses, or JVD, No carotid bruits; No thyromegaly Lungs: Clear to auscultation, Clear to percussion, Normal respiratory effort, no accessory muscle use Cardiovascular: Heart regular in rate and rhythm, No murmurs, gallops, or rubs no peripheral edema Abdominal: Soft Nontender, nom distended, no guarding, no rebound or rigidity, Normoactive bowel sounds No hepatomegaly, No splenomegaly, No palpable mass No abdominal wall hernia noted Skin: Normal temperature, tone, texture, turgor, No induration No subcutaneous nodules, No rash, lesions, No ulcers Extremities:No digital cyanosis No clubbing, Pedal pulses intact and symmetrical Radial pulses intact and symmetrical Normal gait and station, No calf tenderness Psychiatric: Alert and oriented to person, place and time, Appropriate affect Intact judgement Neuro: Muscles Strength 5/5 in all 4 extremities, Sensation to light touch grossly present throughout, Cranial nerves II-XII grossly intact. No focal sensory deficits Assessment and Plan (1) Essential hypertension Current Visit: Yes Status: Acute Code(s): I10 - ESSENTIAL (PRIMARY) HYPERTENSION SNOMED Code(s): 25453691 (2) Hyperlipidemia Current Visit: Yes Status: Acute Code(s): E78.5 - HYPERLIPIDEMIA, UNSPECIFIED SNOMED Code(s): 41469527 (3) Depression Current Visit: Yes Status: Acute Code(s): F32.9 - MAJOR DEPRESSIVE DISORDER , SINGLE EPISODE, UNSPECIFIED SNOMED Code(s): 94954100 (4) Hypothyroidism Current Visit: Yes Status: Acute Code(s): E03.9 - HYPOTHYROIDISM, UNSPECIFIED SNOMED Code(s): 47282721 (5) Insomnia Current Visit: Yes Status: Acute Code(s): G47.00 - INSOMNIA, UNSPECIFIED SNOMED Code(s): 829289224 (6) History of recurrent UTIs Current Visit: Yes Status: Acute Code(s): Z87.440 - PERSONAL HISTORY OF URINARY (TRACT) INFECTIONS SNOMED Code(s): 779604037 (7) History of total right hip arthroplasty Current Visit: Yes Status: Acute Code(s): Z96.641 - PRESENCE OF RIGHT ARTIFICIAL HIP JOINT SNOMED Code(s): 483162361779 Plan: The patient is admitted to primary orthopedic service anticipate a greater than 2 midnight stay after having a right total hip arthroplasty anterior approach secondary to right hip osteoarthritis. Medically the patient is hemodynamically stable post op and has no complaints other than postsurgical pain related. We'll resume her home and to hypertensive regimen, will default to primary team regarding pain management. The patient has been placed on DVT prophylaxis with Xarelto and is also received perioperative antibiotics with Cefalozin. We'll continue to follow the patient's clinical course. CODE STATUS Full code Discussed plan of care with: Patient and her Anticipated discharge : 1-2 days
[2018-09-14] MEDS: PRAVASTATIN SODIUM 20 MG TAB PO SCH (21:35)
[2018-09-14] MEDS: SENNOSIDES-DOCUSATE SODIUM 1 EACH TAB PO SCH (21:36)
[2018-09-14] MEDS: traZODone HCL 50 MG TAB PO SCH (21:36)
[2018-09-15] MEDS: METHENAMINE HIPPURATE 1 GM PO SCH ×5 (03:39→21:18)
[2018-09-15] MEDS: HYDROcodone/APAP 5-325MG 1 EACH TAB PO PRN ×2 (03:41→09:33)
[2018-09-15] MEDS: ceFAZolin IN SWFI 2 GM/20 ML SYRINGE IVP SCH (03:42)
[2018-09-15] MEDS: LEVOTHYROXINE 100 MCG TAB PO SCH (05:27)
[2018-09-15] MEDS: POTASSIUM CHLORIDE ER 10 MEQ TAB.ER.PRT PO SCH (08:31)
[2018-09-15] MEDS: RIVAROXABAN 10 MG TAB PO SCH (08:31)
[2018-09-15] MEDS: METOPROLOL TARTRATE 25 MG TAB PO SCH (08:31)
[2018-09-15] MEDS: SERTRALINE 100 MG TAB PO SCH (08:31)
[2018-09-15] MEDS: traMADol 50 MG TAB PO SCH ×4 (08:31→21:17)
[2018-09-15] MEDS: FUROSEMIDE 20 MG TAB PO SCH (08:31)
[2018-09-15] MEDS: LOSARTAN 50 MG TAB PO SCH (08:31)
[2018-09-15 09:03] LABS: Basophils % (A) 1 %; Eosinophils % (A) 1 %; HCT 33.1 % (34.0-46.0); Lymphocytes # (A) 1.2 k/uL (1.0-4.8); Lymphocytes % (A) 15 %; MCH 30.3 pg (25.0-35.0); MCHC 32.8 g/dL (31.0-37.0); MCV 92.5 fL (80.0-100.0); Monocytes # (A) 0.9 k/uL (0-1.0); Monocytes % (A) 11 %; Neutrophils # (A) 5.6 k/uL (1.3-7.7); Neutrophils % (A) 71 %; Platelet Count 218 k/uL (150-450); RBC 3.57 m/uL (3.80-5.40); RDW 14.2 % (11.5-15.5)
[2018-09-15 09:06] LABS: HGB 10.8 gm/dL (11.4-16.0)
[2018-09-15] MEDS: LACTATED RINGERS 1,000 ML IV SCH (10:11)
[2018-09-15] MEDS ORDERED: LACTATED RINGERS 1,000 ML BAG IV ONE (11:03)
[2018-09-15] MEDS ORDERED: fentaNYL (PF) 50 MCG/ML 2 ML AMP ONE (11:03)
[2018-09-15] MEDS ORDERED: SODIUM CHLORIDE 0.9% 100 ML BAG ONE (11:03)
[2018-09-15] MEDS ORDERED: TRANEXAMIC ACID 1,000 MG/10 ML VIAL ONE (11:03)
[2018-09-15] MEDS ORDERED: HEPARIN SODIUM,PORCINE 10,000 UNIT/ML 1 ML VIAL ONE (11:03)
[2018-09-15] MEDS ORDERED: MIDAZOLAM 2 MG/2 ML VIAL ONE (11:03)
[2018-09-15] MEDS ORDERED: ePHEDrine SULFATE/0.9% NACL/PF 50 MG/5 ML SYRINGE IV ONE (11:03)
[2018-09-15] MEDS ORDERED: PROPOFOL 10 MG/ML 20 ML VIAL IV ONE (11:03)
[2018-09-15] MEDS: CHOLECALCIFEROL 1,000 UNIT TAB PO SCH (11:32)
[2018-09-15] MEDS ORDERED: HYDROcodone/APAP 7.5-325MG 1 EACH TAB PO PRN (11:53)
--- NOTE | 2018-09-15 11:55 | P.PN ---
Subjective Progress Note Date: 09/15/18 The patient was seen and examined at the bedside on 09/15/18. She notes continues 02/18 R sided post-surgical hip pain but otherwise denied any active complaints. She denied any chest pain, SOB, fever, chills, nausea, vomiting, or dysuria. Objective - Vital Signs Vital signs: Vital Signs Temp 98.2 F 09/15/18 07:00 Pulse 76 09/15/18 07:00 Resp 16 09/15/18 07:00 BP 126/67 09/15/18 07:00 Pulse Ox 93 L 09/15/18 07:00 Intake & Output 09/14/18 09/15/18 09/15/18 18:59 06:59 18:59 Intake Total 1323 1190 Output Total 500 1300 Balance 823 -110 Weight 89.358 kg Intake: IV 1101 Intake, IV Titration 600 Amount Lactated Ringers 1,000 ml 600 @ 50 mls/hr IV .Q20H AIMEE Rx#:[id number] Oral 222 590 Output: Urine 1300 Estimated Blood Loss 500 Other: # Voids 1 - Exam General: Non-toxic, in no acute distress, appears stated age HEENT: NC/AT, anicteric sclerae, moist conjunctiva, no lid-lag, PERRLA Cardiovascular: S1/S2 wnl,systolic ejection murmur appreciated, no rubs, or gallops Lungs: Clear to auscultation, normal respiratory effort, no accessory muscle use Abdominal: Soft, nontender, non-distended, no guarding, rebound, or rigidity Skin: Warm, dry Extremities: No edema or contractures, R hip anterior dressing in place, clean, dry, no surrounding erythema Psychiatric: Alert and oriented to person, place and time, appropriate affect, Intact judgment Neuro: CN II-XII grossly intact, Strength 5/5 in all extremities except RLE 3/5 due to pain, Speech intact, Sensation to light touch grossly intact throughout - Labs CBC & Chem 7: 09/15/18 07:12 Labs: Abnormal Lab Results - Last 24 Hours (Table) 09/15/18 Range/Units 07:12 RBC 3.57 L (3.80-5.40) m/uL Hgb 10.8 L D (11.4-16.0) gm/dL Hct 33.1 L (34.0-46.0) % Assessment and Plan Plan: Post-operative pain s/p R total hip arthroplasty -Will defer to Orthopedic service -Currently on [place] 5, Tramadol, and Mobic Systolic murmur -Previously Echocardiogram obtained in 03/2018 for dyspnea was unremarkable -Will obtain repeat Echo HTN -C/w Losartan 50 mg qd, Lopressor 25 mg qam, and Nifedipine 90 mg po qd HLD -C/w Pravachol 20 mg qd Depression -C/w Trazodone 50 mg qhs and Zoloft 100 mg qd Hypothyroidism -C/w Levothyroxine 100 mcg qam DVT//GI proph -On Xarelto -No indication for GI proph
--- NOTE | 2018-09-15 11:58 | P.PN ---
Subjective Progress Note Date: 09/15/18 Principal diagnosis: Status post right total hip arthroplasty Patient is seen today resting in her hospital bed, her is present at bedside. She notes discomfort in the right thigh into the knee. She has not ambulated with therapy at this point. She denies any headaches, lightheadedness , chest pain or shortness of breath. Objective - Vital Signs Vital signs: Vital Signs Temp 98.2 F 09/15/18 07:00 Pulse 76 09/15/18 07:00 Resp 16 09/15/18 07:00 BP 126/67 09/15/18 07:00 Pulse Ox 93 L 09/15/18 07:00 Intake & Output 09/14/18 09/15/18 09/15/18 18:59 06:59 18:59 Intake Total 1323 1190 Output Total 500 1300 Balance 823 -110 Weight 89.358 kg Intake: IV 1101 Intake, IV Titration 600 Amount Lactated Ringers 1,000 ml 600 @ 50 mls/hr IV .Q20H AIMEE Rx#:[id number] Oral 222 590 Output: Urine 1300 Estimated Blood Loss 500 Other: # Voids 1 - Exam Right lower extremity: Incision is clean, dry, and intact. The exofin fusion tape is in good condition. There is minimal soft tissue swelling and ecchymosis surrounding the medial and lateral aspects of the incision. Calf is soft, no tenderness with palpation. Plantar flexion, dorsiflexion, EHL, FHL are intact. Sensory exam to light touch throughout the extremity is intact, dorsal pedis pulses 2+. - Labs CBC & Chem 7: 09/15/18 07:12 Labs: Abnormal Lab Results - Last 24 Hours (Table) 09/15/18 Range/Units 07:12 RBC 3.57 L (3.80-5.40) m/uL Hgb 10.8 L D (11.4-16.0) gm/dL Hct 33.1 L (34.0-46.0) % Assessment and Plan Plan: Assessment: 1. Postop day #1 status post right total hip arthroplasty Plan: Pain control, will increase oral medication [place] 7.5 mg/325 mg GI and DVT prophylaxis, continue current medication Daily dressing changes Continue her physical therapy Medical recommendations Discharge planning: Patient will likely require inpatient rehab, plan for that after 2 additional nights in hospital Time with Patient: Less than 30
--- NOTE | 2018-09-15 14:49 | ECHOF ---
Referral Reason:Murmur MEASUREMENTS -------- HEIGHT: 154.9 cm WEIGHT: 89.4 kg BP: 126/67 RVIDd: 3.4 cm (< 3.3) IVSd: 1.0 cm (0.6 - 1.1) LVIDd: 4.4 cm (3.9 - 5.3) LVPWd: 1.1 cm (0.6 - 1.1) IVSs: 1.5 cm LVIDs: 3.1 cm LVPWs: 1.6 cm LA Diam: 3.6 cm (2.7 - 3.8) LAESV Index (A-L): 32.66 ml/m Ao Diam: 3.4 cm (2.0 - 3.7) AV Cusp: 2.1 cm (1.5 - 2.6) MV EXCURSION: 15.184 mm (> 18.000) MV EF SLOPE: 153 mm/s (70 - 150) EPSS: 0.2 cm MV E Min: 1.05 m/s MV DecT: 182 ms MV A Min: 1.01 m/s MV E/A Ratio: 1.03 AV maxP.62 mmHg AV meanP.52 mmHg AR PHT: 1270 ms RAP: 5.00 mmHg RVSP: 42.27 mmHg FINDINGS -------- Sinus rhythm. This was a technically good study. The left ventricular size is normal. Left ventricular wall thickness is normal. Overall left vent ricular systolic function is normal with, an EF between 55 - 60 %. The right ventricle is normal in size. LA is midly dilated 29-33ml/m2. The right atrium is normal in size. There is mild aortic valve sclerosis. There is mild aortic regurgitation. Peak/mean gradient acro ss the Aortic Valve is 14.62mmHg / 6.52mmHg. Mild mitral annular calcification present. Mild mitral regurgitation is present. Mild tricuspid regurgitation present. Right ventricular systolic pressure is normal at < 35 mmHg. The right ventricular systolic pressure, as measured by Doppler, is 42.27mmHg. Trace/mild (physiologic) pulmonic regurgitation. The aortic root size is normal. Normal inferior vena cava with normal inspiratory collapse consistent with estimated right atrial pre ssure of 5 mmHg. There is no pericardial effusion. CONCLUSIONS -------- 1. Sinus rhythm. 2. This was a technically good study. 3. The left ventricular size is normal. 4. Left ventricular wall thickness is normal. 5. Overall left ventricular systolic function is normal with, an EF between 55 - 60 %. 6. LA is midly dilated 29-33ml/m2. 7. There is mild aortic valve sclerosis. 8. There is mild aortic regurgitation. 9. Peak/mean gradient across the Aortic Valve is 14.62mmHg / 6.52mmHg. 10. Mild mitral annular calcification present. 11. Mild mitral regurgitation is present. 12. Mild tricuspid regurgitation present. 13. Right ventricular systolic pressure is normal at < 35 mmHg. 14. Trace/mild (physiologic) pulmonic regurgitation. 15. The aortic root size is normal. 16. Normal inferior vena cava with normal inspiratory collapse consistent with estimated right atrial pressure of 5 mmHg. 17. There is no pericardial effusion. ENVIRONMENTAL ASSISTANT: Heydi Castellano RDCS
[2018-09-15] MEDS: HYDROcodone/APAP 7.5-325MG 1 EACH TAB PO PRN ×2 (17:40→23:03)
[2018-09-15] MEDS: NIFEdipine XL 90 MG TAB.ER.24 PO SCH (17:40)
[2018-09-15] MEDS: traZODone HCL 50 MG TAB PO SCH (21:17)
[2018-09-15] MEDS: PRAVASTATIN SODIUM 20 MG TAB PO SCH (21:17)
[2018-09-15] MEDS: SENNOSIDES-DOCUSATE SODIUM 1 EACH TAB PO SCH (21:18)
[2018-09-16] MEDS: HYDROcodone/APAP 7.5-325MG 1 EACH TAB PO PRN ×2 (05:34→11:58)
[2018-09-16] MEDS: LEVOTHYROXINE 100 MCG TAB PO SCH (05:34)
[2018-09-16] MEDS: LACTATED RINGERS 1,000 ML IV SCH (05:38)
[2018-09-16] MEDS: METHENAMINE HIPPURATE 1 GM PO SCH ×4 (06:48→22:08)
[2018-09-16] MEDS: METOPROLOL TARTRATE 25 MG TAB PO SCH (08:08)
[2018-09-16] MEDS: LOSARTAN 50 MG TAB PO SCH (08:08)
[2018-09-16] MEDS: FUROSEMIDE 20 MG TAB PO SCH (08:08)
[2018-09-16] MEDS: traMADol 50 MG TAB PO SCH ×4 (08:46→22:09)
[2018-09-16] MEDS: POTASSIUM CHLORIDE ER 10 MEQ TAB.ER.PRT PO SCH (08:46)
[2018-09-16] MEDS: SERTRALINE 100 MG TAB PO SCH (08:46)
[2018-09-16] MEDS: RIVAROXABAN 10 MG TAB PO SCH (08:46)
--- NOTE | 2018-09-16 09:27 | P.PN ---
Subjective Progress Note Date: 09/16/18 The patient was seen and examined at the bedside on 09/16/18. The patient no longer has pain at rest though continues to have pain upon ambulation. She is ambulating to the restroom w/ walker. Denying any other active complaints including chest pain, SOB, fever, chills, nausea, vomiting, dizziness, headache , weakness, numbness, or dysuria. Objective - Vital Signs Vital signs: Vital Signs Temp 99.0 F 09/16/18 07:15 Pulse 87 09/16/18 08:48 Resp 15 09/16/18 07:15 BP 104/58 09/16/18 08:48 Pulse Ox 92 L 09/16/18 07:15 Intake & Output 09/15/18 09/16/18 09/16/18 18:59 06:59 18:59 Other: # Voids 1 1 - Exam General: Non-toxic, in no acute distress, appears stated age, obese HEENT: NC/AT, anicteric sclerae, moist conjunctiva, no lid-lag, PERRLA Cardiovascular: S1/S2 wnl,systolic ejection murmur appreciated, no rubs, or gallops Lungs: Clear to auscultation, normal respiratory effort, no accessory muscle use Abdominal: Soft, nontender, non-distended, no guarding, rebound, or rigidity Skin: Warm, dry Extremities: No edema or contractures, R hip anterior dressing in place, clean, dry, no surrounding erythema Psychiatric: Alert and oriented to person, place and time, appropriate affect, Intact judgment Neuro: CN II-XII grossly intact, Strength 5/5 in all extremities except RLE 3/5 due to pain, Speech intact, Sensation to light touch grossly intact throughout - Labs CBC & Chem 7: 09/15/18 07:12 Assessment and Plan Plan: HTN -Losartan and Lopressor held this am due to hypotension. Will monitor for now. Post-operative pain s/p R total hip arthroplasty -Will defer to Orthopedic service -Currently on [place] 7.5, Tramadol, and Dilaudid -C/w physical therapy Systolic murmur -Echocardiogram unremarkable. Likely due to aortic sclerosis. HLD -C/w Pravachol 20 mg qd Depression -C/w Trazodone 50 mg qhs and Zoloft 100 mg qd Hypothyroidism -C/w Levothyroxine 100 mcg qam DVT//GI proph -On Xarelto -No indication for GI proph
[2018-09-16] MEDS: CHOLECALCIFEROL 1,000 UNIT TAB PO SCH (11:58)
--- NOTE | 2018-09-16 12:42 | P.PN ---
Subjective Progress Note Date: 09/16/18 Principal diagnosis: Status post right total hip arthroplasty Patient is seen today resting in her hospital bed. Patient noticed improvement in pain since yesterday. She denies any headaches, lightheadedness, chest pain or shortness of breath. Objective - Vital Signs Vital signs: Vital Signs Temp 99.0 F 09/16/18 07:15 Pulse 87 09/16/18 08:48 Resp 15 09/16/18 07:15 BP 104/58 09/16/18 08:48 Pulse Ox 92 L 09/16/18 07:15 Intake & Output 09/15/18 09/16/18 09/16/18 18:59 06:59 18:59 Other: Voiding Method Toilet # Voids 1 1 - Exam Right lower extremity: Incision is clean, dry, and intact. The exofin fusion tape is in good condition. There is minimal soft tissue swelling and ecchymosis surrounding the medial and lateral aspects of the incision. Calf is soft, no tenderness with palpation. Plantar flexion, dorsiflexion, EHL, FHL are intact. Sensory exam to light touch throughout the extremity is intact, dorsal pedis pulses 2+. - Labs CBC & Chem 7: 09/15/18 07:12 Assessment and Plan Plan: Assessment: 1. Postop day #2 status post right total hip arthroplasty Plan: Pain control, continue current medication GI and DVT prophylaxis, continue current medication Daily dressing changes Continue her physical therapy Medical recommendations Discharge planning: Plan for discharge to rehab tomorrow Time with Patient: Less than 30
[2018-09-16] MEDS: NIFEdipine XL 90 MG TAB.ER.24 PO SCH (17:33)
[2018-09-16] MEDS ORDERED: METOPROLOL TARTRATE 25 MG TAB PO STA (17:37)
[2018-09-16] MEDS: SENNOSIDES-DOCUSATE SODIUM 1 EACH TAB PO SCH (22:10)
[2018-09-16] MEDS: PRAVASTATIN SODIUM 20 MG TAB PO SCH (22:10)
[2018-09-16] MEDS: traZODone HCL 50 MG TAB PO SCH (22:10)
[2018-09-17] MEDS: HYDROcodone/APAP 7.5-325MG 1 EACH TAB PO PRN ×2 (04:58→12:35)
[2018-09-17] MEDS: LACTATED RINGERS 1,000 ML IV SCH (06:05)
[2018-09-17] MEDS: LEVOTHYROXINE 100 MCG TAB PO SCH (06:05)
[2018-09-17 07:55] LABS: Basophils % (A) 1 %; Eosinophils # (A) 0.3 k/uL (0-0.7); Eosinophils % (A) 4 %; HCT 31.2 % (34.0-46.0); HGB 9.9 gm/dL (11.4-16.0); Lymphocytes # (A) 1.3 k/uL (1.0-4.8); Lymphocytes % (A) 17 %; MCH 29.5 pg (25.0-35.0); MCHC 31.8 g/dL (31.0-37.0); MCV 92.9 fL (80.0-100.0); Mean Platelet Volume 7.4; Monocytes # (A) 0.7 k/uL (0-1.0); Monocytes % (A) 10 %; Neutrophils # (A) 4.9 k/uL (1.3-7.7); Neutrophils % (A) 67 %; Platelet Count 200 k/uL (150-450); RBC 3.37 m/uL (3.80-5.40); RDW 14.2 % (11.5-15.5); WBC 7.4 k/uL (3.8-10.6)
[2018-09-17 08:08] VITALS: BP 122/64; PULSE 65; RESP 17; TEMP 98.5
[2018-09-17] MEDS: POTASSIUM CHLORIDE ER 10 MEQ TAB.ER.PRT PO SCH (08:48)
[2018-09-17] MEDS: LOSARTAN 50 MG TAB PO SCH (08:48)
[2018-09-17] MEDS: METOPROLOL TARTRATE 25 MG TAB PO SCH (08:48)
[2018-09-17] MEDS: RIVAROXABAN 10 MG TAB PO SCH (08:49)
[2018-09-17] MEDS: SERTRALINE 100 MG TAB PO SCH (08:49)
[2018-09-17] MEDS: traMADol 50 MG TAB PO SCH ×2 (08:49→12:37)
[2018-09-17] MEDS: METHENAMINE HIPPURATE 1 GM PO SCH ×2 (08:51→12:32)
[2018-09-17] MEDS: FUROSEMIDE 20 MG TAB PO SCH (08:51)
--- NOTE | 2018-09-17 11:22 | P.PN ---
Subjective Progress Note Date: 09/17/18 Principal diagnosis: Status post right total hip arthroplasty Patient is seen today resting in her hospital bed. Patient noticed improvement in pain since yesterday. She denies any headaches, lightheadedness, chest pain or shortness of breath. Objective - Vital Signs Vital signs: Vital Signs Temp 98.5 F 09/17/18 07:00 Pulse 65 09/17/18 07:00 Resp 17 09/17/18 07:00 BP 122/64 09/17/18 07:00 Pulse Ox 94 L 09/17/18 07:00 Intake & Output 09/16/18 09/17/18 09/17/18 18:59 06:59 18:59 Intake Total 500 350 Balance 500 350 Intake: Oral 500 350 Other: Voiding Method Toilet Toilet # Voids 2 1 - Exam Right lower extremity: Incision is clean, dry, and intact. The exofin fusion tape is in good condition. There is minimal soft tissue swelling and ecchymosis surrounding the medial and lateral aspects of the incision. Calf is soft, no tenderness with palpation. Plantar flexion, dorsiflexion, EHL, FHL are intact. Sensory exam to light touch throughout the extremity is intact, dorsal pedis pulses 2+. - Labs CBC & Chem 7: 09/17/18 07:29 Labs: Abnormal Lab Results - Last 24 Hours (Table) 09/17/18 Range/Units 07:29 RBC 3.37 L (3.80-5.40) m/uL Hgb 9.9 L (11.4-16.0) gm/dL Hct 31.2 L (34.0-46.0) % Assessment and Plan Plan: Assessment: 1. Postop day #3 status post right total hip arthroplasty Plan: Pain control, plan for discharge on [place] and tramadol GI and DVT prophylaxis, Xarelto 10 mg for 25 days Daily dressing changes Continue her physical therapy Medical recommendations Discharge planning: Discharge to rehab today Time with Patient: Less than 30
--- NOTE | 2018-09-17 11:22 | P.DS ---
Providers Date of admission: 09/14/18 09:19 Expected date of discharge: 09/17/18 Attending physician: Glenn Duong Consults: 09/14/18 13:24 Consult Physician Routine Consulting Provider: Joy Ha Consult Reason/Comments: medical management Do you want consulting provider notified?: Yes Primary care physician: Joy Ha MD Hospital Course: Date of admission: 09/14/2018 Date of discharge: 09/17/2018 Admission diagnosis: Status post right total hip arthroplasty Discharge diagnosis: Same Attending physician: Dr. Duong Surgical procedures: Right total hip arthroplasty Brief history: Patient is a 78-year-old female with a history of progressive primary right hip osteoarthritis. At this point patient has failed conservative treatment measures and has opted to proceed with a elective right total hip arthroplasty. Hospital course: Details of patient's surgery can be found in operative report. Patient tolerated the procedure well and was subsequently transported to orthopedic floor. Patient's orthopeidc and medical care was provided daily. Patient had daily laboratory tests performed for evaluation of overall blood counts. Patient had daily physical therapy to include strengthening range of motion as well as education with walker ambulation. Patient was treated with Xarelto for their postoperative DVT prophylaxis during their inpatient stay. Patient was noted to have a relatively uneventful postoperative course. Patient reported satisfactory pain control with oral pain medications by postoperative day 0. Patient showed satisfactory progress with physical therapy. Patient moved steadily through the program and had no difficulty meeting the goals by postoperative day 3. Given patient's otherwise satisfactory course and having met physical therapy goals, plan is to discharge patient rehab on postoperative day 3. Discharge condition/disposition: Patient will be discharged rehab in stable condition. Discharge medications: Instructions are given on resumption of patient's normal daily medications per primary care recommendation, in addition patient will be prescribed [place] 7.5 mg/325 mg, tramadol 50 mg, Colace 100 mg, Xarelto 10 mg. Discharge instructions: 1. Wound care and infection precautions, keep incision dry and covered while showering, no lotions, creams, moisturizers. No soaking, tubs, pools, hottubs. Do not scrub over the incision. 2. Weight-bear as tolerated with walker / cane until follow-up. 3. Ice and elevate when necessary. Do not exceed 20 minutes per hour with ice pack. 4. Utilize compression sleeve until seen at first follow up appointment. 5. Visiting nursing care. 6. Home physical therapy. 7. Pain meds and anticoagulants per prescription. 8. Pain medication has potential to cause constipation. Increase oral fluid and fiber intake. Contact primary care provider if you have not had a bowel movement within 48 hours after discharge 9. No anti-inflammatory medication until discussed at first post operative visit, this including Motrin, Aleve, Mobic, Diclofenac. 10. Follow up in office at 2 weeks postop with Duc Amin PA-C 11. Follow up with your primary care doctor 7-10 days after discharge. 12. Contact [facility] with any questions, . Procedures: Right total hip arthroplasty Patient Condition at Discharge: Good Plan - Discharge Summary Discharge Rx Participant: Yes New Discharge Prescriptions: New Docusate [Colace] 100 mg PO DAILY #30 capsule HYDROcodone/APAP 7.5-325MG [[place] 7.5] 1 - 2 each PO Q6HR PRN #56 tab PRN Reason: Pain Rivaroxaban [Xarelto] 10 mg PO DAILY #25 tab traMADol HCl [Ultram] 50 mg PO Q6H PRN #28 tab PRN Reason: Pain Discontinued traMADol HCl [Ultram] 50 mg PO TID PRN PRN Reason: Pain No Action Sertraline [Zoloft] 100 mg PO DAILY Ranitidine HCl 150 mg PO DAILY PRN PRN Reason: Heartburn Vit C/E/Zn/Coppr/Lutein/Zeaxan [Preservision Areds 2 Softgel] 1 cap PO W/ SUPPER Pravastatin Sodium [Pravachol] 20 mg PO HS L.acidoph,Paracasei, B.lactis [Probiotic] 1 cap PO AC-SUPPER NIFEdipine [NIFEdipine ER] 90 mg PO PC-SUPPER Levothyroxine Sodium [Synthroid] 100 mcg PO DAILY Cholecalciferol [Vitamin D3] 2,000 unit PO DAILY Cranberry Fruit Extract [Cranberry] 500 mg PO BID Aspirin 81 mg PO DAILY Furosemide [Lasix] 20 mg PO DAILY #10 tab Potassium Chloride [K-Tab ER] 10 meq PO DAILY #10 tablet.er traZODone HCL [Desyrel] 50 mg PO HS Metoprolol Tartrate [Lopressor] 25 mg PO QAM Losartan Potassium [Cozaar] 50 mg PO QAM Methenamine Hippurate [Hiprex] 1 gm PO QID Polyethylene Glycol 3350 [Miralax] 17 gm PO Q48H Discharge Medication List Aspirin 81 mg PO DAILY 02/22/18 [History] Cholecalciferol [Vitamin D3] 2,000 unit PO DAILY 02/22/18 [History] Cranberry Fruit Extract [Cranberry] 500 mg PO BID 02/22/18 [History] Furosemide [Lasix] 20 mg PO DAILY #10 tab 02/22/18 [Rx] L.acidoph,Paracasei, B.lactis [Probiotic] 1 cap PO AC-SUPPER 02/22/18 [History] Levothyroxine Sodium [Synthroid] 100 mcg PO DAILY 02/22/18 [History] NIFEdipine [NIFEdipine ER] 90 mg PO PC-SUPPER 02/22/18 [History] Potassium Chloride [K-Tab ER] 10 meq PO DAILY #10 tablet.er 02/22/18 [Rx] Pravastatin Sodium [Pravachol] 20 mg PO HS 02/22/18 [History] Ranitidine HCl 150 mg PO DAILY PRN 02/22/18 [History] Sertraline [Zoloft] 100 mg PO DAILY 02/22/18 [History] Vit C/E/Zn/Coppr/Lutein/Zeaxan [Preservision Areds 2 Softgel] 1 cap PO W/SUPPER 02/22/18 [History] Losartan Potassium [Cozaar] 50 mg PO QAM 09/08/18 [History] Methenamine Hippurate [Hiprex] 1 gm PO QID 09/08/18 [History] Metoprolol Tartrate [Lopressor] 25 mg PO QAM 09/08/18 [History] traZODone HCL [Desyrel] 50 mg PO HS 09/08/18 [History] Polyethylene Glycol 3350 [Miralax] 17 gm PO Q48H 09/14/18 [History] Docusate [Colace] 100 mg PO DAILY #30 capsule 09/17/18 [Rx] HYDROcodone/APAP 7.5-325MG [[place] 7.5] 1 - 2 each PO Q6HR PRN #56 tab 09/17/18 [ Rx] Rivaroxaban [Xarelto] 10 mg PO DAILY #25 tab 09/17/18 [Rx] traMADol HCl [Ultram] 50 mg PO Q6H PRN #28 tab 09/17/18 [Rx] Follow up Appointment(s)/Referral(s): Joy Ha MD [Primary Care Provider] - 1 Week Stef Amin PAC [PHYSICIAN PROPERTY SITE MANAGER] - 10/01/18 2:30 pm Activity/Diet/Wound Care/Special Instructions: Orthopedic Discharge Instructions: 1. Wound care and infection precautions, keep incision dry and covered while showering, no lotions, creams, moisturizers. No soaking, pools, hot tubs. Do not scrub over incision. 2. Weight-bear as tolerated with walker / cane until follow-up. 3. Ice and elevate when necessary. Do not exceed 20 minutes per hour with ice pack. 4. Utilize compression sleeve until seen at first follow up appointment. 5. Pain meds and anticoagulants per prescription. 6. Pain medication has potential to cause constipation. Increase oral fluid and fiber intake. Contact primary care provider if you have not had a bowel movement within 48 hours after discharge. 7. No anti-inflammatory medication until discussed at first post operative visit, this including Motrin, Aleve, Mobic, Diclofenac. 8. Follow up in office at 2 weeks postop with Duc Amin PA-C 9. Follow up with your primary care doctor 7-10 days after discharge. 10. Contact [facility] with any questions, . Discharge Disposition: TRANSFER TO SNF/ECF
[2018-09-17] MEDS: CHOLECALCIFEROL 1,000 UNIT TAB PO SCH (12:35)
--- NOTE | 2018-09-17 13:23 | P.PN ---
Subjective Progress Note Date: 09/17/18 The patient was seen and examined at the bedside. She was ambulating in the hallway with PT. She noted that her R hip pain w/ ambulation has improved and denied any additional active complaints including chest pain, SOB, fever, chills , nausea, or vomiting. She had a BM earlier today and was passing urine. Objective - Vital Signs Vital signs: Vital Signs Temp 98.5 F 09/17/18 07:00 Pulse 65 09/17/18 07:00 Resp 17 09/17/18 07:00 BP 122/64 09/17/18 07:00 Pulse Ox 94 L 09/17/18 07:00 Intake & Output 09/16/18 09/17/18 09/17/18 18:59 06:59 18:59 Intake Total 500 350 Balance 500 350 Intake: Oral 500 350 Other: Voiding Method Toilet Toilet # Voids 2 1 - Exam General: Non-toxic, in no acute distress, appears stated age, obese HEENT: NC/AT, anicteric sclerae, moist conjunctiva, no lid-lag, PERRLA Cardiovascular: S1/S2 wnl,systolic ejection murmur appreciated, no rubs, or gallops Lungs: Clear to auscultation, normal respiratory effort, no accessory muscle use Abdominal: Soft, nontender, non-distended, no guarding, rebound, or rigidity Skin: Warm, dry Extremities: No edema or contractures, R hip anterior dressing in place, clean, dry, no surrounding erythema Psychiatric: Alert and oriented to person, place and time, appropriate affect, Intact judgment Neuro: CN II-XII grossly intact, Strength 5/5 in all extremities except RLE 3/5 due to pain, Speech intact, Sensation to light touch grossly intact throughout - Labs CBC & Chem 7: 09/17/18 07:29 Labs: Abnormal Lab Results - Last 24 Hours (Table) 09/17/18 Range/Units 07:29 RBC 3.37 L (3.80-5.40) m/uL Hgb 9.9 L (11.4-16.0) gm/dL Hct 31.2 L (34.0-46.0) % Assessment and Plan Plan: HTN - C/w Losartan, Lopressor, and Nifedipine Post-operative pain s/p R total hip arthroplasty -Will defer to Orthopedic service -Currently on [place] 7.5, Tramadol, and Dilaudid -C/w physical therapy -Patient is to be discharged to rehab today Systolic murmur -Echocardiogram unremarkable. Likely due to aortic sclerosis. HLD -C/w Pravachol 20 mg qd Depression -C/w Trazodone 50 mg qhs and Zoloft 100 mg qd Hypothyroidism -C/w Levothyroxine 100 mcg qam DVT//GI proph -On Xarelto as per Orthopedics -No indication for GI proph
== END 2018-09-17 15:13 | DRG 470 ==
LOC: 2ORMAIN 09:19 → 4SSUR 15:32
PROVIDERS: ADMIT Orthopaedic Surgery; ATTEND Orthopaedic Surgery
PROC: 0SR902A Replacement of Right Hip Joint with Metal on Polyethylene Synthetic Substitute, Uncemented, Open Approach (ICD-10-PCS; principal; 2018-09-14 10:55)
DX: M16.11 Unilateral primary osteoarthritis, right hip (principal); E03.9 Hypothyroidism, unspecified; E78.5 Hyperlipidemia, unspecified; F32.9 Major depressive disorder, single episode, unspecified; G47.00 Insomnia, unspecified; I12.9 Hypertensive chronic kidney disease with stage 1 through stage 4 chronic kidney disease, or unspecified chronic kidney disease; K21.9 Gastro-esophageal reflux disease without esophagitis; N18.9 Chronic kidney disease, unspecified; I70.0 Atherosclerosis of aorta; E66.9 Obesity, unspecified; Z68.37 Body mass index [BMI] 37.0-37.9, adult; Z79.82 Long term (current) use of aspirin; Z79.890 Hormone replacement therapy; Z79.899 Other long term (current) drug therapy; Z85.828 Personal history of other malignant neoplasm of skin; Z87.440 Personal history of urinary (tract) infections; Z88.2 Allergy status to sulfonamides; Z90.710 Acquired absence of both cervix and uterus; Z86.718 Personal history of other venous thrombosis and embolism
CPT/HCPCS: 36415; 73501; 85025; 86850; 86891; 86900; 86901; 88300; 93306

== ENCOUNTER → 2018-10-20 | Outpatient (CLI) | payer MEDICARE ==
--- NOTE | 2018-10-20 15:35 | US ---
EXAMINATION TYPE: US venous doppler duplex LE RT DATE OF EXAM: 10/20/2018 3:15 PM COMPARISON: Bilateral lower extremity venous ultrasound February 22, 2018 CLINICAL HISTORY: M79.89 RT LEG SWELLING. Rt leg swelling s/p right hip replacement 09-21-18 SIDE PERFORMED: Right TECHNIQUE: The lower extremity deep venous system is examined utilizing real time linear array sonog bonita with graded compression, doppler sonography and color-flow sonography. VESSELS IMAGED: External Iliac Vein (EIV) Common Femoral Vein Deep Femoral Vein Greater Saphenous Vein * Femoral Vein Popliteal Vein Small Saphenous Vein * Proximal Calf Veins (* superficial vessels) Grayscale, color doppler, spectral doppler imaging performed of the deep veins of the right lower ext remity. There is normal flow, compressibility, vascular waveforms. Right Leg: Negative for DVT Voicemail message left with Dr. Ha at time of exam IMPRESSION: No ultrasound evidence for acute DVT in the right lower extremity on today's study.
== END | disposition home or self-care (01) ==
LOC: RADUSWWP 14:55
PROVIDERS: ATTEND Family Medicine
DX: M79.89 Other specified soft tissue disorders (principal); Z96.641 Presence of right artificial hip joint

== ENCOUNTER → 2018-11-26 | Outpatient (CLI) | payer MEDICARE ==
--- NOTE | 2018-11-26 17:21 | MR ---
EXAMINATION TYPE: MR lumbar spine wo con DATE OF EXAM: 11/26/2018 COMPARISON: None HISTORY: Intervertebral disc degeneration, lumbar CONTRAST: 0 mL intravenous Gadavist. TECHNIQUE: Multiplanar, multisequence images of the lumbar spine were acquired. FINDINGS: L5-S1: Minimal disc bulge is present with anterior thecal sac contact. Exiting nerve root contact is present without stenosis or displacement. Neural foramen are patent. Hemangioma is within the L5 vert ebral body. L4-L5: Broad-based disc bulge has moderate anterior thecal sac flattening. Disc uncovering is present from a grade 1 spondylolisthesis of L4 anterior and L5. Facet hypertrophy is some posterior lateral thecal sac compression. AP spinal canal stenosis is present measuring 0.6 cm. This may be more severe posterior to the paracentral regions where there is marked facet hypertrophy. Foramen are patent wit h mild narrowing. L3-L4: Endplate changes are present along the inferior endplate of L3. Broad-based disc bulge has mod erate anterior thecal sac compression. Facet hypertrophy with ligamentum flavum laxity is posterior l ateral thecal sac compression contributing to spinal canal stenosis of 0.5 cm. Moderate right and lef t foraminal stenosis is present. L2-L3: Small amount of subligamentous disc extension is posterior to the 3 vertebral level compatible some subligamentous disc extension. Mild bulging is present with anterior thecal sac contact. No AP spinal canal stenosis is present. Facet hypertrophy and ligamentum flavum laxity is present with post erior lateral thecal sac compression on the right. L1-L2: No significant disc bulge is evident. Mild facet hypertrophy with ligamentum flavum laxity is posterior lateral thecal sac contact. No spinal canal stenosis or neural foraminal stenosis is presen t. T12-L1: There is a small central disc protrusion and/or spurring with mild anterior thecal sac compre ssion. No spinal canal stenosis is present. Neural foramen are patent. Cord terminates at the T12 lev el. Foramen are patent. Ligamentum flavum laxity is present. IMPRESSION: 1. Severe spinal canal stenosis due to ligamentum flavum laxity and facet hypertrophy with some disc bulging L4-5 and L3-4. 2. Inferior endplate changes at L3 and superior endplate of L1. 3. Foraminal stenosis L3-4
== END ==
LOC: RADMRIMAIN 13:41
PROVIDERS: ATTEND Family Medicine
DX: M48.061 Spinal stenosis, lumbar region without neurogenic claudication (principal); M99.73 Connective tissue and disc stenosis of intervertebral foramina of lumbar region; M51.26 Other intervertebral disc displacement, lumbar region
CPT/HCPCS: 72148

== ENCOUNTER → 2018-12-02 | Outpatient (CLI) | payer MEDICARE ==
[2018-12-02 12:18] LABS: Basophils # (A) 0.1 k/uL (0-0.2); Basophils % (A) 1 %; Eosinophils # (A) 0.6 k/uL (0-0.7); Eosinophils % (A) 9 %; HCT 42.2 % (34.0-46.0); Lymphocytes # (A) 1.5 k/uL (1.0-4.8); Lymphocytes % (A) 23 %; MCH 28.2 pg (25.0-35.0); MCHC 30.7 g/dL (31.0-37.0); MCV 91.9 fL (80.0-100.0); Monocytes # (A) 0.7 k/uL (0-1.0); Monocytes % (A) 11 %; Neutrophils # (A) 3.5 k/uL (1.3-7.7); Neutrophils % (A) 55 %; Platelet Count 253 k/uL (150-450); RBC 4.59 m/uL (3.80-5.40); RDW 14.6 % (11.5-15.5); WBC 6.4 k/uL (3.8-10.6)
[2018-12-02 13:32] LABS: Erythrocyte Sedimentation Rate 13 mm/hr (0-20)
== END | disposition home or self-care (01) ==
LOC: LABWHC1 11:47
PROVIDERS: ATTEND Orthopaedic Surgery
DX: M25.551 Pain in right hip (principal)
CPT/HCPCS: 36415; 85025; 85652; 86140

== ENCOUNTER → 2018-12-13 | Outpatient (CLI) | payer MEDICARE ==
[2018-12-14 01:49] LABS: Anion Gap 9.6 mmol/L (4.00-12.00); Calcium 9.3 mg/dL (8.7-10.3); Carbon Dioxide 30.4 mmol/L (21.6-31.8); Potassium 4.1 mmol/L (3.5-5.5)
== END ==
LOC: LABWHC1 15:13
PROVIDERS: ATTEND Internal Medicine Interventional Cardiology
DX: I10 Essential (primary) hypertension (principal); R60.0 Localized edema; R06.02 Shortness of breath
CPT/HCPCS: 36415; 80048

== ENCOUNTER → 2018-12-23 | Outpatient (CLI) | payer MEDICARE ==
[2018-12-22 11:45] VITALS: BMI 36.6
[2018-12-23 12:17] VITALS: BP 157/66; PULSE 62; RESP 16; TEMP 97.4
--- NOTE | 2018-12-23 12:45 | P.CONS ---
History of Present Illness - Reason for Consult Consult date: 12/23/18 - Chief Complaint lower back and right leg pain - History of Present Illness This is a 78-year-old lady with history of right hip replacement a few months ago. The patient started to feel back pain about 2 months ago with radiation to the right lower extremity occasionally to the right foot with numbness on the lateral aspect of the right foot. The patient also has swelling in both legs starting from the groins down. The patient had seen a corporate bond trader who did some tests and does not think that the swelling is noted any cardiac problems. Her pain gets worse by standing or sitting for too long and improved by sitting down. She has been taking tramadol 50 mg twice a day for her pain. Review of Systems Cardiovascular: Denies chest pain, Denies shortness of breath Respiratory: Denies cough Musculoskeletal: Reports as per HPI Neurological: Reports as per HPI Past Medical History Past Medical History: Cancer, Deep Vein Thrombosis (DVT), GERD/Reflux, Hyperlipidemia, Hypertension, Osteoarthritis (OA), Thyroid Disorder Additional Past Medical History / Comment(s): insomnia, chronic UTI's, right sided trigger finger, varicose veins, constipation, hx "ischemic colitis" 2010, skin cancer History of Any Multi-Drug Resistant Organisms: None Reported Past Surgical History: Bladder Surgery, Hysterectomy, Joint Replacement, Orthopedic Surgery Additional Past Surgical History / Comment(s): parathyroidectomy, bladder suspension, sugery for fx rt femur, RT MICHELLE Past Anesthesia/Blood Transfusion Reactions: No Reported Reaction Past Psychological History: Depression Smoking Status: Never smoker Past Alcohol Use History: None Reported Past Drug Use History: None Reported - Past Family History Father Family Medical History: Cancer Medications and Allergies Home Medications Medication Instructions Recorded Confirmed Type Aspirin 81 mg PO DAILY 02/22/18 12/22/18 History Cholecalciferol [Vitamin D3] 2,000 unit PO DAILY 02/22/18 12/22/18 History Cranberry Fruit Extract [Cranberry] 500 mg PO BID 02/22/18 12/22/18 History Furosemide [Lasix] 20 mg PO DAILY #10 tab 02/22/18 12/22/18 Rx L.acidoph,Paracasei, B.lactis 1 cap PO AC-SUPPER 02/22/18 12/22/18 History [Probiotic] Levothyroxine Sodium [Synthroid] 100 mcg PO DAILY 02/22/18 12/22/18 History Potassium Chloride [K-Tab ER] 10 meq PO DAILY #10 tablet.er 02/22/18 12/22/18 Rx Pravastatin Sodium [Pravachol] 20 mg PO HS 02/22/18 12/22/18 History Sertraline [Zoloft] 100 mg PO DAILY 02/22/18 12/22/18 History Vit C/E/Zn/Coppr/Lutein/Zeaxan 1 cap PO W/SUPPER 02/22/18 12/22/18 History [Preservision Areds 2 Softgel] Losartan Potassium [Cozaar] 50 mg PO QAM 09/08/18 12/22/18 History Methenamine Hippurate [Hiprex] 1 gm PO QID 09/08/18 12/22/18 History Metoprolol Tartrate [Lopressor] 25 mg PO QAM 09/08/18 12/22/18 History traZODone HCL [Desyrel] 50 mg PO HS 09/08/18 12/22/18 History Polyethylene Glycol 3350 [Miralax] 17 gm PO Q48H 09/14/18 12/22/18 History Docusate [Colace] 100 mg PO DAILY #30 capsule 09/17/18 12/22/18 Rx traMADol HCl [Ultram] 50 mg PO Q6H PRN #28 tab 09/17/18 12/22/18 Rx Allergies Allergy/AdvReac Type Severity Reaction Status Date / Time Sulfa (Sulfonamide Allergy Rash/Hives Verified 12/23/18 12:27 Antibiotics) Physical Exam Vitals: Vital Signs Temp Pulse Resp BP 12/23/18 12:10 97.4 F L 62 16 157/66 12/23/18 12:09 16 - Constitutional General appearance: morbidly obese - EENT Eyes: PERRLA - Respiratory Respiratory: bilateral: CTA - Cardiovascular Rhythm: regular - Neurologic Neuro exam of the lower extremities showed decreased right knee reflex compared to the left one and absent ankle jerks bilaterally. She has mild decrease in her muscle strength in the lower extremities for knee flexion and extension and normal ankle flexion and extension bilaterally. She has decreased muscle strength is to 3 out of 4 on the right hip flexion due to her recent hip surgery. She has tenderness in the lumbar paravertebral area on the right side. Straight leg raising test negative bilaterally. Neurologic: CNII-XII intact - Psychiatric Psychiatric: A&O x's 3, intact judgment & insight Results Results: Lumbar spine MRI shows marked facet hypertrophy at multiple levels and severe spinal canal stenosis at the L4 5 level. 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 She also might be a good candidate for lumbar medial branch block in the future as diagnostic procedure. I do not think that the swelling in her legs is due to her spinal stenosis. The procedure was explained to the patient and her questions were answered. I thank you for the referral.
== END | disposition home or self-care (01) ==
LOC: PNWHC3 11:59
PROVIDERS: ATTEND Anesthesiology
DX: M48.061 Spinal stenosis, lumbar region without neurogenic claudication (principal); M54.16 Radiculopathy, lumbar region; M46.86 Other specified inflammatory spondylopathies, lumbar region; I10 Essential (primary) hypertension; M79.89 Other specified soft tissue disorders; K21.9 Gastro-esophageal reflux disease without esophagitis; E78.5 Hyperlipidemia, unspecified; E07.9 Disorder of thyroid, unspecified; N39.0 Urinary tract infection, site not specified; M19.90 Unspecified osteoarthritis, unspecified site; F32.9 Major depressive disorder, single episode, unspecified; K59.00 Constipation, unspecified; K55.8 Other vascular disorders of intestine; Z96.641 Presence of right artificial hip joint; Z79.891 Long term (current) use of opiate analgesic; Z86.718 Personal history of other venous thrombosis and embolism; Z85.828 Personal history of other malignant neoplasm of skin; Z90.710 Acquired absence of both cervix and uterus; Z90.89 Acquired absence of other organs; Z98.890 Other specified postprocedural states; Z79.82 Long term (current) use of aspirin; Z85.3 Personal history of malignant neoplasm of breast; Z79.899 Other long term (current) drug therapy; Z88.2 Allergy status to sulfonamides
CPT/HCPCS: 99211

== ENCOUNTER → 2019-01-04 | Outpatient (CLI) | payer MEDICARE ==
--- NOTE | 2019-01-06 10:02 | MM ---
Reason for exam: screening (asymptomatic). Last mammogram was performed 1 year and 1 month ago. History: Patient is postmenopausal. Family history of breast cancer in mother and breast cancer in maternal grandmother. Took estrogen beginning at age 45. Physical Findings: A clinical breast exam by your physician is recommended on an annual basis and results should be correlated with mammographic findings. MG 3D Screening Mammo W/Cad Bilateral CC and MLO view(s) were taken. Prior study comparison: December 18, 2017, bilateral MG 3d screening mammo w/cad. November 24, 2016, mammogram. There are scattered fibroglandular densities. No significant changes when compared with prior studies. ASSESSMENT: Negative, BI-RAD 1 RECOMMENDATION: Routine screening mammogram of both breasts in 1 year.
== END ==
LOC: RADMAMWWP 13:27
PROVIDERS: ATTEND Family Medicine
DX: Z12.31 Encounter for screening mammogram for malignant neoplasm of breast (principal)
CPT/HCPCS: 77063; 77067

== ENCOUNTER → 2019-01-18 | Outpatient (CLI) | payer MEDICARE ==
[2019-01-18 13:22] LABS: Basophils # (A) 0.1 k/uL (0-0.2); Basophils % (A) 1 %; Eosinophils # (A) 0.2 k/uL (0-0.7); Eosinophils % (A) 3 %; HCT 45.3 % (34.0-46.0); HGB 14.5 gm/dL (11.4-16.0); Lymphocytes # (A) 1.6 k/uL (1.0-4.8); Lymphocytes % (A) 25 %; MCH 28.6 pg (25.0-35.0); MCHC 31.9 g/dL (31.0-37.0); MCV 89.7 fL (80.0-100.0); Mean Platelet Volume 7.4; Monocytes # (A) 0.6 k/uL (0-1.0); Monocytes % (A) 9 %; Neutrophils # (A) 3.9 k/uL (1.3-7.7); Neutrophils % (A) 60 %; Platelet Count 257 k/uL (150-450); RBC 5.05 m/uL (3.80-5.40); WBC 6.5 k/uL (3.8-10.6)
[2019-01-18 18:51] LABS: Albumin 4.2 g/dL (3.80-4.90); Albumin/Globulin Ratio 1.91 (1.60-3.17); Anion Gap 5.5 mmol/L (4.00-12.00); Calcium 9.4 mg/dL (8.7-10.3); Carbon Dioxide 27.5 mmol/L (21.6-31.8); Globulin 2.2 g/dL (1.6-3.3); LDL Cholesterol,Calculated 101.2 mg/dL (0.0-131.0); Magnesium 2.2 mg/dL (1.5-2.4); Phosphorus 3.7 mg/dL (2.4-5.1); Potassium 4.7 mmol/L (3.5-5.5); Total Bilirubin 0.8 mg/dL (0.3-1.2); Total Protein 6.4 g/dL (6.2-8.2); VLDL Calculation 13.8 mg/dL (5.00-40.00)
[2019-01-18 18:58] LABS: T4, Free (Free Thyroxine) 1.3 ng/dL (0.80-1.80)
== END | disposition home or self-care (01) ==
LOC: LABWHC1 10:36
PROVIDERS: ATTEND Family Medicine
DX: E78.5 Hyperlipidemia, unspecified (principal); E03.9 Hypothyroidism, unspecified; N18.3 Chronic kidney disease, stage 3 (moderate)
CPT/HCPCS: 36415; 80053; 80061; 82043; 82306; 82570; 83735; 84100; 84439; 84443; 85025

== ENCOUNTER 2019-01-20 07:48 | Day surgery (SDC) | payer MEDICARE ==
[2019-01-18 10:01] VITALS: BMI 35.3
[~2019-01-20 07:48] MED LIST changes: -ACETAMINOPHEN TAB 500 MG TAB PO ONE; -DEXAMETHASONE SOD PHOSPHATE 10 MG/ML 1 ML VIAL IV ONE; +LACTATED RINGERS 1,000 ML IV SCH; -LIDOCAINE 1% 20 ML VIAL (10MG/ML) FOR IV START INTRADERMA PRN; -MELOXICAM 7.5 MG TAB PO ONE; -ONDANSETRON 4 MG/2 ML VIAL IVP ONE; -SCOPOLAMINE 1.5MG/72HR PATCH TRANSDERM ONE; -TRANEXAMIC ACID 1,000 MG in SODIUM CHLORIDE 0.9% 50 ML IVPB ONE; -ceFAZolin IN SWFI 2 GM/20 ML SYRINGE IVP ONE
[2019-01-20] MEDS ORDERED: LIDOCAINE 1% 20 ML VIAL (10MG/ML) FOR IV START INTRADERMA ONE (08:50)
[2019-01-20 09:04] VITALS: TEMP 97.9
--- NOTE | 2019-01-20 09:24 | P.PCN ---
Date of Procedure: 01/20/19 Procedure(s) Performed: PREOPERATIVE DIAGNOSIS: 1- Lumbar Degenerative Disc Diseases 2-Lumbar radiculopathy POSTOPERATIVE DIAGNOSIS: 1-Lumber Degenerative Disc Diseases 2-Lumbar radiculopathy PROCEDURE 1. Lumbar epidural steroid injection under fluoroscopic guidance at the L5-S1 level. 2. Lumbar epidurogram. ANESTHESIA: Local with 1% lidocaine 3 ml and , moderate sedation with intravenous Versed 1 mg ,and fentanyle 50 Mcg EBL: Minimal PROCEDURE INDICATION: The patient with low back pain and radiculitis symptoms unresponsive to conservative treatment. Fluoroscopy was used to optimize visualization of the needle placement and to maximize safety. PROCEDURE DESCRIPTION / TECHNIQUE: The patient was seen and identified in the preoperative area. Risks, benefits, complications including but not limited to infections ,bleeding ,allergic reaction to the medications ,nerve damage and not complete pain releife , and alternatives were discussed with the patient. The patient agreed to proceed with the procedure and signed the consent. IV was started, and vital signs were stable. Patient was taken to the OR and time out was completed. The patient was placed in the prone position on procedure table and a pillow was placed under the abdomen to reduce lumbar lordosis. The lumbosacral area was prepped and draped in the usual sterile fashion.ere closely monitored during the procedure. Conscious sedation was used during the procedure to decrease patients anxiety. Vital signs was monitered during the entire procedure. Using anterior-posterior fluoroscopy, the L5-S1 interlaminar space was identified and the skin over this site was marked and then infiltrated with 1% lidocaine subcutaneously. Subsequently, a 20-gauge Tuohy epidural needle was inserted and advanced toward the epidural space using the ``Loss of resistance technique and guided by AP and lateral fluoroscopy. The correct needle position in the epidural space was verified with the injection of 2 mL of the water soluble contrast dye Isovue 200 contrast and observing an excellent epidurogram with the epidural spread of the dye, after negative aspiration for blood and CSF and in the absence of paresthesias. Again after negative aspiration, a 6 ml mixture containing 40 mg of Depo-medrol , and 2 ml of preservative free Normal Saline, and 2 ml of preservative free lidocaine 1% solution was injected and a washout of epidurogram was seen. Needle was withdrawn intact, skin was cleansed, and bandages were applied. COMPLICATIONS: None DISPOSITION / PLANS: The patient was placed in a supine position and transferred to the recovery area in a stable condition for observation. There was no evidence of lower extremity motor or sensory deficit after the procedure. Patient was discharged from the recovery room after meeting discharge criteria. Home discharge instructions were given to the patient by the staff. The patient was reexamined prior to discharge. The patient will schedule a follow up in the clinic in 2-4 weeks.
[2019-01-20] MEDS ORDERED: IV FLUID CONTINUATION 1,000 ML IV ONE (09:29)
[2019-01-20 09:31] VITALS: PULSE 57; RESP 18
[2019-01-20 09:45] VITALS: BP 165/70
--- NOTE | 2019-01-20 10:20 | FL ---
Fluoroscopy INDICATION: Pain FINDINGS: Fluoroscopy time: 1 seconds. Images obtained: 1. IMPRESSIONS: 1. Documentation of fluoroscopy.
== END 2019-01-20 10:02 | disposition home or self-care (01) ==
LOC: ORPAIN 07:48
PROVIDERS: ATTEND Specialist
DX: M51.16 Intervertebral disc disorders with radiculopathy, lumbar region (principal); I10 Essential (primary) hypertension; Z88.2 Allergy status to sulfonamides
CPT/HCPCS: 62323; J2250; J1030; J3010; Q9966

== ENCOUNTER → 2019-02-10 | Outpatient (CLI) | payer MEDICARE ==
[2019-02-10 13:32] VITALS: BP 143/79; PULSE 59; RESP 16
--- NOTE | 2019-02-10 13:48 | P.PN ---
Subjective Progress Note Date: 02/10/19 This is a 78-year-old female with history of chronic lower back pain with radiation to the right hip area and numbness all the way down to her right foot. The pain starts at the hip level but the numbness goes all the way down to her right foot. The patient had 2 lumbar epidural steroid injection which helped significantly however they did not last for more than 3 or 4 weeks. Her back pain at this point is more severe than her right leg pain. Today, pt denies new-onset weakness, bowel/bladder incontinence, or any other signs or symptoms of cauda equina syndrome. There are no signs of acute intoxication, and no indications of medication diversion or overuse. In addition to above, 13-point review of systems is also negative for chest pain, shortness of breath, changes in vision, changes in hearing, new onset weakness, abdominal pain, diarrhea, extreme fatigue, malaise, fever, skin changes, homicidal or suicidal ideation, or bowel or bladder incontinence. Vital Signs: Reviewed in EMR Gen: AAOx3, NAD HEENT: PERRLA,hearing grossly normal Pulm: resp unlabored,CTA Heart:S1,S2, No Mur Neck: supple, trachea midline Neuro exam of the lower extremities: Decreased but symmetrical muscle strength to 4 out of 5 in the lower extremities. Normal deep tendon reflexes the lower extremities bilaterally and symmetrically Tenderness in the paravertebral musculature: Positive tenderness in the lumbar paravertebral musculature more on the right side of the left side Neuro: CN II-XII grossly intact, Imaging: Reviewed in EMR/chart Assessment: This is a 78-year-old lady with the following diagnoses: Lumbar stenosis Right lumbar radiculopathy Lumbar facet arthropathy without myelopathy Hypertension Remote history of breast carcinoma Right total hip replacement Plan: 1. Explanation: Opioid and psychological risk scores were reviewed. Diagnoses, prognoses, and multiple treatment options including but not limited to physical therapy, interventional therapies, adjuvant medical therapies, narcotic medication therapies, and surgery were discussed with the patient and all questions were answered to the patient's satisfaction. 2. Opioid agreement: Signed with the patient and the patient is warned not to use opioids while driving or before driving and not to combine opioids with benzodiazepines or alcohol. 3. Counseling: The patient was counseled extensively on SMOKING CESSATION, BODY MASS INDEX, EXERCISE. Specifically, the patient was instructed regarding the importance of smoking cessation, obesity, and exercise in the context of both chronic pain and overall health. 4. Procedures: Scheduled for a diagnostic lumbar medial branch block under fluoroscopic guidance 5. Consultations: None 6. Investigations: None 7. Medications: Increase Neurontin to 100 mg 3 times a day 8. Disposition: Return to the above-mentioned procedure 9. Maps were reviewed and were appropriate. PQRS measures: 1-Patient's medications are documented in the chart. 2-Tobacco use is negative, counseling given 3-Patient has had a pneumococcal vaccine. 4-Advanced care planning discussed, patient unable to give 5-Opioid contract signed with the patient. 6-Pain positive, follow-up visit or procedure scheduled 7-Patient's blood pressure measured and documented within normal limits. The patient will follow up with his primary care physician. 8-Patient's weight was measured, and body mass index ABOVE the normal limits, and counseling was done. Patient instructed to follow up with PCP. 9-Patient WAS NOT identified as an unhealthy alcohol user. Controlled Substance Measures Is patient prescribed a controlled substance at discharge?: Yes When asked, does pt state using other controlled substances?: No If prescribed controlled substance>3 days was MAPS reviewed?: Yes If Rx opioid, was Start Talking consent form obtained?: Yes If opioid is for acute pain is fill amount 7 days or less?: No Was information provided regarding opioid addiction?: Yes Objective - Vital Signs Vital signs: Vital Signs Temp Pulse 59 L 02/10/19 13:27 Resp 16 02/10/19 13:27 BP 143/79 02/10/19 13:27 Pulse Ox 96 02/10/19 13:27 Intake & Output 02/09/19 02/10/19 02/10/19 18:59 06:59 18:59 Weight 86.183 kg
== END ==
LOC: PNWHC3 13:20
PROVIDERS: ATTEND Anesthesiology
DX: M48.061 Spinal stenosis, lumbar region without neurogenic claudication (principal); M46.96 Unspecified inflammatory spondylopathy, lumbar region; M54.16 Radiculopathy, lumbar region; I10 Essential (primary) hypertension; Z85.3 Personal history of malignant neoplasm of breast; Z96.641 Presence of right artificial hip joint; Z79.899 Other long term (current) drug therapy
CPT/HCPCS: 99211

== ENCOUNTER 2019-02-24 09:50 | Day surgery (SDC) | payer MEDICARE ==
[2019-02-24 10:08] VITALS: TEMP 97.8
--- NOTE | 2019-02-24 11:24 | P.PCN ---
Date of Procedure: 02/24/19 Description of Procedure: PROCEDURE: Bilateral lumbar medial branch block L3-L4, L4-L5, L5-S1 with fl uoroscopy PREOPERATIVE DIAGNOSIS : 1- Lumbar spondylosis with Facet Arthropathy without myelopathy . 2- Lumber degenerative disc disease POSTOPERATIVE DIAGNOSIS: 1- Lumbar spondylosis with Facet Arthropathy without myelopathy . 2- Lumber degenerative disc disease PROCEDURE: Diagnostic bilateral L3 -4 , L4 -5 , and L5-S1 medial branch block under fluoroscopy ANESTHESIA: None COMPLICATION: None. PROCEDURE INDICATION: Chronic low back pain secondary to Facet arthropathy unresponsive to conservative treatment. PROCEDURE DESCRIPTION: the patient was seen and identified in the preop holding area , risks and benefits and possible complications of the procedure and alternative were discussed with the patient, and the patient agreed to proceed with the procedure and signed the consent IV was started and vital signs monitored during the procedure and fluoroscopy was used to maximize the benefit and accuracy of the needle placement, and sedation was given to decrease patient anxiety, patient was taken to the procedure room and placed in prone position vital signs monitored in the back prepped with chlorhexidine X3 then under strict sterile technique using a right oblique fluoroscopy ,the junction of the transverse process and the superior articulating process of the right L3- 4 , L4- 5, and L5-S1 vertebra which corresponding to the fluoroscopy image of the eye of the Dillon dog on the block side for the medial branches and subsequently , a 25-gauge Quincke-type needle was used and each time placed at the junction of the base of the transverse process and the superior articular process at the appropriate level L3, L4, L5, S1 pedicle. The needle was advanced until the periosteum contacted, needle placement confirmed with AP oblique and lateral view and after appropriate needle placement confirmed, and after negative aspiration for heme and CSF and there was no paresthesia 1-1/2 mL of ropivacaine 0.5% mixed with 40 mg Kenalog , then half mL injected at each level after negative aspiration the needle subsequently removed and the same procedure repeated for the left side at left side at L3-4, L4- 5 and L5-S1 levels. At the end of the procedure and the needles removed and a bandage applied after the skin was cleaned the cleaning solution patient taken to recovery room in stable condition and monitors in the recovery room for 20-30 minutes and discharged home in stable condition after discharge criteria met and patient will return for repeat procedure in 2-4 weeks.
[2019-02-24 11:36] VITALS: RESP 16
[2019-02-24 11:46] VITALS: BP 167/72; PULSE 63
--- NOTE | 2019-02-24 14:20 | FL ---
EXAMINATION TYPE: FL guided pain mgmt statistic DATE OF EXAM: 02/24/2019 FLUOROSCOPY Fluoroscopy time of 19 seconds was used during bilateral lumbar facet block. 3 image/s document/s th e procedure.
== END 2019-02-24 11:52 | disposition home or self-care (01) ==
LOC: ORPAIN 09:50
PROVIDERS: ATTEND Anesthesiology
DX: G89.29 Other chronic pain (principal); M47.816 Spondylosis without myelopathy or radiculopathy, lumbar region; M51.36 Other intervertebral disc degeneration, lumbar region
CPT/HCPCS: 64493; 64494; 64495; J3301

== ENCOUNTER → 2019-03-17 | Outpatient (CLI) | payer MEDICARE ==
[2019-03-18 03:10] LABS: Anion Gap 10.6 mmol/L (4.00-12.00); Calcium 9.3 mg/dL (8.7-10.3); Carbon Dioxide 26.4 mmol/L (21.6-31.8); Magnesium 1.9 mg/dL (1.5-2.4); Potassium 3.9 mmol/L (3.5-5.5)
== END | disposition home or self-care (01) ==
LOC: LABWHC1 15:03
PROVIDERS: ATTEND Nurse Practitioner
DX: E78.5 Hyperlipidemia, unspecified (principal); I10 Essential (primary) hypertension; R06.02 Shortness of breath
CPT/HCPCS: 36415; 80048; 83735

== ENCOUNTER 2019-03-21 09:44 | Day surgery (SDC) | payer MEDICARE ==
[2019-03-16 15:29] VITALS: BMI 35.1
[2019-03-21 10:15] VITALS: TEMP 99.1
[2019-03-21] MEDS ORDERED: LACTATED RINGERS 1,000 ML IV ONE (10:18)
[2019-03-21] MEDS ORDERED: LIDOCAINE 1% 20 ML VIAL (10MG/ML) FOR IV START INTRADERMA ONE (10:19)
--- NOTE | 2019-03-21 11:47 | P.PCN ---
Date of Procedure: 03/21/19 Surgeon: Britt Villafuerte Pathology: none sent Condition: stable Disposition: PACU Description of Procedure: PREOPERATIVE DIAGNOSIS : 1- Lumbar spondylosis with Facet Arthropathy without myelopathy . 2- Lumber degenerative disc disease POSTOPERATIVE DIAGNOSIS: 1- Lumbar spondylosis with Facet Arthropathy without myelopathy . 2- Lumber degenerative disc disease PROCEDURE: Diagnostic bilateral L3 -4 , L4 -5 , and L5-S1 medial branch block under fluoroscopy ANESTHESIA: Local with 1% lidocaine; IV moderate conscious sedation with Versed 2 mg . EBL: Negligible COMPLICATION: None. PROCEDURE INDICATION: Chronic low back pain secondary to Facet arthropathy unresponsive to conservative treatment. PROCEDURE DESCRIPTION: the patient was seen and identified in the preop holding area , risks and benefits and possible complications of the procedure and alternatives were discussed with the patient, and the patient agreed to proceed with the procedure and signed the consent. IV was started and vital signs monitored during the procedure and fluoroscopy was used to maximize the benefit and accuracy of the needle placement, sedation was given to decrease patient anxiety, patient was taken to the procedure room and placed in prone position vital signs monitored. The patient was brought into the procedure room and placed in prone position. Skin was prepped with Chloraprep and draped in a sterile manner. Lidocaine 1% was used to numb the skin up at the target points that were chosen as follows: at the L5-S1 level which corresponds to the dorsal ramus of L5 the target points were at the superior medial aspect of the sacral ala on each side of the spine on the AP view of fluoroscopy, and for the L3 and L4 medial branches the target points were the connection between the transverse process and the superior to go process of L4 and L5 respectively on the oblique views of fluoroscopy. I used 22-gauge 3-1/2 inch Quincke spinal needles for this procedure and after contacting bone at the target points mentioned above I injected 1 mL of a mixture of Kenalog 40 mg +5 MLS of Marcaine 0.5% PF . Patient tolerated procedure well. At the end of the procedure the needles removed and a bandage applied after the skin was cleaned the cleaning solution. patient was then taken to the recovery room in stable condition and monitored in the recovery room for 20-30 minutes and discharged home in stable condition after discharge criteria met .
[2019-03-21] MEDS ORDERED: IV FLUID CONTINUATION 750 ML IV ONE (11:57)
[2019-03-21 12:20] VITALS: RESP 18
[2019-03-21 12:36] VITALS: BP 129/77; PULSE 50
--- NOTE | 2019-03-21 14:37 | FL ---
EXAMINATION TYPE: FL guided pain mgmt statistic DATE OF EXAM: 03/21/2019 FLUOROSCOPY Fluoroscopy time of 7 seconds was used during bilateral lumbar facet blocks. 3 image/s document/s th e procedure.
== END 2019-03-21 12:25 | disposition home or self-care (01) ==
LOC: ORPAIN 09:44
PROVIDERS: ATTEND Anesthesiology
DX: M47.816 Spondylosis without myelopathy or radiculopathy, lumbar region (principal); M51.36 Other intervertebral disc degeneration, lumbar region; G89.29 Other chronic pain; Z88.2 Allergy status to sulfonamides
CPT/HCPCS: 64493; 64494; 64495; J2250; J3301; J3010

== ENCOUNTER 2019-04-18 08:27 | Day surgery (SDC) | payer MEDICARE ==
[2019-04-12 09:02] VITALS: BMI 35.1
[2019-04-18] MEDS ORDERED: LACTATED RINGERS 1,000 ML IV SCH (08:59)
[2019-04-18 09:12] VITALS: RESP 16; TEMP 97.9
--- NOTE | 2019-04-18 10:21 | P.PCN ---
Date of Procedure: 04/18/19 Procedure(s) Performed: Procedure(s) Performed: PREOPERATIVE DIAGNOSIS: Lumbar Spondylosis, lumbar facet arthropathy without myelopathy POSTOPERATIVE DIAGNOSIS: Same PROCEDURES: Radiofrequency ablation of left L3-L4, L4-L5, L5-S1 with fluoroscopic guidance SURGEON: Adolfo Castaneda MD. ANESTHESIA: Moderate sedation with intravenous Versed and fentanyl EBL: Minimal PROCEDURE INDICATION: The patient with low back pain secondary to lumbar facet arthropathy who had more than 50% relief of pain with previous diagnostic lumbar medial branch block. PROCEDURE DESCRIPTION / TECHNIQUE: The patient was seen and identified in the preoperative area. Risks, benefits, complications, including but not limited to risk of infection ,bleeding , allergic reactions to the medications and incom plete pain relief , and alternatives were discussed with the patient, the patient agreed to proceed with the procedure and signed the consent. IV was started. Patient was taken to the OR and time out was completed. The patient was placed in the prone position on the procedure table. The lumbar area was prepped and draped in the usual sterile fashion. . Vital signs were closely monitored during the procedure .IV sedation was used during the procedure to decrease patients anxiety. Using AP and then oblique fluoroscopy, the ``eye of the Dillon dog corresponding to the connection between the superior articulating process and transverse processes of the above-mentioned levels were identified, marked, and localized with 1% lidocaine. Subsequently, a 18 -zv radiofrequency cannula with a 10-mm active tip was advanced guided by fluoroscopy to each of the ``eyes of the Dillon dog at each site then underwent motor testing at 2.5 Hz with local stimulation only, and no radicular symptoms down the legs. Then, radiofrequency thermocoagulation at 80 degrees Celsius for 90 seconds was performed at each level after injecting 1ml of PF lidocaine 4%. The needles were removed. The back was cleaned, and sterile dressings were applied. COMPLICATIONS: No acute complications. DISPOSITION / PLANS: The patient was placed in a supine position and transferred to the recovery area in a stable condition for observation and was discharged from the recovery room after meeting discharge criteria. Home dis charge instructions given to the patient by the staff. The patient will be seen for right sided lumbar radiofrequency ablation in 2 weeks.
[2019-04-18] MEDS ORDERED: LACTATED RINGERS 1,000 ML IV ONE (10:26)
--- NOTE | 2019-04-18 10:34 | FL ---
Fluoroscopy INDICATION: Pain FINDINGS: Fluoroscopy time: 21 seconds. Images obtained: 9. IMPRESSIONS: 1. Documentation of fluoroscopy.
[2019-04-18 10:45] VITALS: BP 163/63; PULSE 61
== END 2019-04-18 11:48 | disposition home or self-care (01) ==
LOC: ORPAIN 08:27
PROVIDERS: ATTEND Anesthesiology
DX: M47.26 Other spondylosis with radiculopathy, lumbar region (principal); Z79.82 Long term (current) use of aspirin; Z79.890 Hormone replacement therapy; Z79.891 Long term (current) use of opiate analgesic; Z79.899 Other long term (current) drug therapy
CPT/HCPCS: 64635; 64636 ×2; J2250; J3010; 99152

== ENCOUNTER 2019-05-02 08:56 | Day surgery (SDC) | payer MEDICARE ==
[2019-04-28 10:04] VITALS: BMI 36.4
[2019-05-02 10:06] VITALS: RESP 16; TEMP 97.5
[2019-05-02] MEDS ORDERED: LIDOCAINE 1% 20 ML VIAL (10MG/ML) FOR IV START INTRADERMA ONE (10:06)
--- NOTE | 2019-05-02 11:02 | P.PCN ---
Date of Procedure: 05/02/19 Procedure(s) Performed: PREOPERATIVE DIAGNOSIS: Lumbar Spondylosis POSTOPERATIVE DIAGNOSIS: Same PROCEDURES: Radiofrequency ablation of the right L2, L3, L4, L5 medial branches with fluoroscopic guidance (for facet joints L3-4, L4-5 and L5-S1) SURGEON: Adolfo Castaneda MD. ANESTHESIA: Lidocaine 1% 5 mL, Moderate sedation with intravenous Versed and fentanyl EBL: Minimal Fluoroscopy was used for the procedure and images were saved in the radiology portion of the chart. PROCEDURE INDICATION: The patient with low back pain secondary to lumbar facet arthropathy who had more than 50% relief of pain with previous diagnostic lumbar medial branch block X2. PROCEDURE DESCRIPTION / TECHNIQUE: The patient was seen and identified in the preoperative area. Risks, benefits, complications, including but not limited to risk of infection ,bleeding , allergic reactions to the medications and incomple te pain relief , and alternatives were discussed with the patient, the patient agreed to proceed with the procedure and signed the consent. IV was started. The operative site was marked. Patient was taken to the OR and time out was completed. The patient was placed in the prone position on the procedure table. The lumbar area was prepped and draped in the usual sterile fashion. . Vital signs were closely monitored during the procedure .IV sedation was used during the procedure to decrease patients anxiety. Using AP and then oblique fluoroscopy, the "eye of the Dillon dog" corresponding to the connection between the superior and transverse articular processes of the L4 and L5 as well as the sacral ala were identified, marked, and localized with 1% lidocaine. Subsequently, an 18 guage[100/150-mm] radiofrequency cannula with a 10-mm active tip was advanced guided by fluoroscopy to the identified target at each site. Needle positioning was confirmed on AP, oblique and lateral fluoroscopy. Motor testing at 2.5 Hz was done with paraspinal muscle stimulation only, and no radicular symptoms down the legs. Then 1 mL of 4% lidocaine was injected in each site. Radiofrequency thermocoagulation at 80 degrees celsius for 90 seconds was then performed. Flom were removed. Sterile dressings were applied. COMPLICATIONS: No acute complications. DISPOSITION / PLANS: The patient was placed in a supine position and transferred to the recovery area in a stable condition for observation and was discharged from the recovery room after meeting discharge criteria. Home discharge instructions given to the patient by the staff. The patient will follow up in clinic in 4 weeks.
[2019-05-02] MEDS ORDERED: IV FLUID CONTINUATION 700 ML IV ONE (11:07)
[2019-05-02 11:26] VITALS: BP 147/72; PULSE 52
--- NOTE | 2019-05-02 17:40 | FL ---
Fluoroscopy HISTORY: Pain 26 seconds fluoroscopy time supplied to the referring clinician. 9 intraoperative C-arm images docum ent the procedure. See dictated report from anesthesia.
== END 2019-05-02 11:39 | disposition home or self-care (01) ==
LOC: ORPAIN 08:56
PROVIDERS: ATTEND Anesthesiology
DX: G89.29 Other chronic pain (principal); M47.26 Other spondylosis with radiculopathy, lumbar region; Z79.82 Long term (current) use of aspirin; Z79.890 Hormone replacement therapy; Z79.899 Other long term (current) drug therapy
CPT/HCPCS: 64635; 64636 ×2; J2250; J3010; 99152; 99153

== ENCOUNTER → 2019-05-30 | Outpatient (CLI) | payer MEDICARE ==
[2019-05-30 13:19] VITALS: BP 148/84; PULSE 57; RESP 16
--- NOTE | 2019-05-30 15:38 | P.PAINPG ---
Subjective Progress Note Date: 05/30/19 This is a 79-year-old female who presents to clinic after her right lumbar radiofrequency ablation. She states that she had excellent pain relief for 2 weeks and then she had return of pain. However look in her pain scores are only between 2 and 5. Furthermore her pain score today is 3. Her PCP is writing her for tramadol and Mobic. She states her pain is at the belt line and alone most of the buttock. Other than some pain on the right side she has no new complaints. Objective - Vital Signs Vital signs: Vital Signs Temp Pulse 57 L 05/30/19 13:16 Resp 16 05/30/19 13:16 BP 148/84 05/30/19 13:16 Pulse Ox 96 05/30/19 13:16 Intake & Output 05/29/19 05/30/19 05/30/19 18:59 06:59 18:59 Weight 87.997 kg - Exam Vital Signs: Reviewed in EMR GENERAL: Well appearing, in no acute distress, PSYCH: Mood and affect is appropriate. Awake, alert, and oriented SKIN: Skin color, texture, turgor normal, no rashes or lesions HEENT: Normocephalic, atraumatic. EOM intact CV: No pedal edema RESP: Respirations are unlabored, no audible wheezing GI: Abdomen non-distended MUSCULOSKELETAL: Bilateral upper and lower extremity strength is normal and sy mmetric. No atrophy or tone abnormalities are noted. Lumbar spine: There is slight pain to palpation over the lumbar spine and paraspinous muscles. Buttock: Positve pain to palpation over the PSIS, Amanda, Gaenslen's, Stefan is positive for right buttock pain. Extremities: Peripheral joint ROM is full and pain free without obvious instability or laxity in all four extremities. No edema or skin discolorations noted. Gait: Gait is anantalgic NEUR: No loss of sensation is noted. Cranial nerves are grossly intact. Assessment and Plan Assessment: This is a 79-year-old female who presents after her right-sided radiofrequency ablation. She states that she had pain relief for only 2 weeks. However on further interview her pain is at the level of belt and below. Furthermore she does have pain on palpation of the right PSIS and she has positive provocative signs for SI joint maneuvers. Thus after her RFA her SI joint pain may have been unmasked. Assessment: 1. SI joint dysfunction 2. Lumbar spondylosis 3. Obesity Plan: 1. Explanation: That the SI joint may be because of the pain 2. Opioid agreement: None, she is prescribed tramadol by her PCP 3. Counseling: The patient was counseled extensively on BODY MASS INDEX, EXERCISE. Specifically, the patient was instructed regarding the importance of weight control, and exercise in the context of both chronic pain and overall health. 4. Procedures: Right SI joint injection 5. Consultations: None 6. Investigations: None 7. Medications: Encouraged patient to have discussions with primary care physician 8. Disposition: For right SI joint injection , PQRS Measure Charge Sheet Measure #47: Advance Care Plan: Advance care planning discussed & documented, pt chose/unable to give Measure #131: Pain Assessment & Follow-up: Pain positive & plan documented, Follow-up scheduled PQRS Narrative: Smoking Status Never smoker Blood Pressure 148/84 Pain Intensity [Lower Back] 3 Scale Used Numeric (1 - 10) Hx Alcohol Use (MH) No Home Medications: Ambulatory Orders Aspirin 81 mg PO DAILY 02/22/18 Cholecalciferol [Vitamin D3] 2,000 unit PO DAILY 02/22/18 L.acidoph,Paracasei, B.lactis [Probiotic] 1 cap PO AC-SUPPER 02/22/18 Levothyroxine Sodium [Synthroid] 112 mcg PO QAM 02/22/18 Pravastatin Sodium [Pravachol] 20 mg PO HS 02/22/18 Sertraline [Zoloft] 100 mg PO QAM 02/22/18 Losartan Potassium [Cozaar] 100 mg PO QAM 09/08/18 Methenamine Hippurate [Hiprex] 1 gm PO QID 09/08/18 Metoprolol Tartrate [Lopressor] 25 mg PO BID 09/08/18 traZODone HCL [Desyrel] 50 mg PO HS PRN 09/08/18 Polyethylene Glycol 3350 [Miralax] 17 gm PO DAILY 09/14/18 Gabapentin [Neurontin] 100 mg PO Q8H 12/31/18 Furosemide [Lasix] 40 mg PO QAM PRN 02/22/19 Potassium Chloride [K-Tab ER] 10 meq PO QAM 02/22/19 Ranitidine HCl 150 mg PO PC-SUPPER PRN 02/22/19 Vit C/E/Zn/Coppr/Lutein/Zeaxan [Preservision Areds 2 Softgel] 1 tab PO DAILY 02/22/19 traMADol HCl [Ultram] 50 mg PO TID 02/22/19 Hydrochlorothiazide 25 mg PO DAILY 03/21/19 Meloxicam [Mobic] 7.5 mg PO BID 04/28/19 Controlled Substance Measures - Controlled Substance Measures Is patient prescribed a controlled substance at discharge?: No
== END ==
LOC: PNWHC3 12:42
PROVIDERS: ATTEND Student in an Organized Health Care Education/Training Program
DX: M53.3 Sacrococcygeal disorders, not elsewhere classified (principal); M47.816 Spondylosis without myelopathy or radiculopathy, lumbar region; E66.9 Obesity, unspecified; Z79.899 Other long term (current) drug therapy; Z79.82 Long term (current) use of aspirin; Z79.1 Long term (current) use of non-steroidal anti-inflammatories (NSAID)
CPT/HCPCS: 99211

== ENCOUNTER 2019-06-07 09:53 | Day surgery (SDC) | payer MEDICARE ==
[2019-06-02 10:45] VITALS: BMI 36.6
[2019-06-07 10:23] VITALS: TEMP 97.3
--- NOTE | 2019-06-07 11:10 | P.PCN ---
Date of Procedure: 06/07/19 Procedure(s) Performed: Procedure= right sacroiliac joints steroid injection under fluoroscopy guidance Preoperative diagnosis: right SI joint dysfunction Postoperative diagnosis: rsame Complication: none Condition: stable Anesthesia: moderate sedation with 50 mcg fentanyl and local infiltration with lidocaine 1% 5 mL Indication for the procedure= patient complaining of low back pain , examination was positive for severe tenderness over the sacroiliac joints on the right side and patient diagnosed with sacroiliitis, for this reasonshe was good candidate for sacroiliac joint steroid injection. Description of the procedure= procedure risk and benefits discussed with the pat ient, including but not limited, risk of infection and bleeding, and ALLERGIC reaction to the medication and not complete pain relief and patient agreed with the preceding patient taken to the operating room, placed in prone position or standard monitors applied to the patient then after induction of anesthesia back prepped with chlorhexidine Then under strict sterile technique, first I did the right sacroiliac joint the which was identified under fluoroscopy guidance been local infiltration of the skin and subcu interstitial with lidocaine 1% then 22-gauge Quincke Needle advanced slowly under fluoroscopy and placed in the right sacroiliac joint needle placement confirmed with AP and oblique and lateral view and after appropriate needle placement confirmed and after negative aspiration, or heme the Ropivicaine 0.5% 1 mL and 40 mg of Kenalog mixed together and injected in the right sacroiliac joint after negative aspiration patient tolerated the procedure well without any complication. The patient tolerated the procedure well that any complications and she will follow up for repeat procedure if this one worked well for her.
[2019-06-07] MEDS ORDERED: IV FLUID CONTINUATION 1,000 ML IV ONE (11:28)
--- NOTE | 2019-06-07 11:39 | FL ---
EXAMINATION TYPE: FL guided pain mgmt statistic DATE OF EXAM: 06/07/2019 CLINICAL HISTORY: Right sacroiliac joint pain. TECHNIQUE: Fluoroscopy. COMPARISON: None. FINDINGS: Fluoroscopic guidance was provided during pain relief procedure performed by Dr. Hester . A total of 6 seconds of fluoroscopic time was utilized during the procedure and 3 spot images are a cquired. Images acquired shows needle localization at level of inferior right sacroiliac joint. IMPRESSION: As Above.
[2019-06-07 11:59] VITALS: BP 146/72; PULSE 64; RESP 18
== END 2019-06-07 12:01 | disposition home or self-care (01) ==
LOC: ORPAIN 09:53
PROVIDERS: ATTEND Student in an Organized Health Care Education/Training Program
DX: M53.3 Sacrococcygeal disorders, not elsewhere classified (principal); M46.1 Sacroiliitis, not elsewhere classified; Z88.2 Allergy status to sulfonamides; Z98.890 Other specified postprocedural states; Z79.82 Long term (current) use of aspirin
CPT/HCPCS: J3301; J3010; Q9966; G0260; 27096

== ENCOUNTER → 2019-07-06 | Outpatient (CLI) | payer MEDICARE ==
[2019-07-06 14:11] VITALS: BP 144/82; PULSE 64; RESP 16
--- NOTE | 2019-07-08 14:01 | P.PAINPG ---
Subjective Progress Note Date: 07/06/19 This is a 79-year-old female who presents to clinic following right SI joint injection done on 06/07/2019. She reports excellent relief from this procedure, and does not have any pain complaints currently. In the past, we have done right lumbar radiofrequency ablation. Her PCP is writing her for tramadol and Mobic. Review of systems is negative for chest pain, shortness of breath, new onset weakness, numbness/tingling, abdominal pain, malaise, fever, night sweats, chills, homicidal or suicidal ideation, or bowel or bladder incontinence. Objective Vital Signs: Reviewed in EMR GENERAL: Well appearing, in no acute distress, PSYCH: Mood and affect is appropriate. Awake, alert, and oriented SKIN: Skin color, texture, turgor normal, no rashes or lesions HEENT: Normocephalic, atraumatic. EOM intact CV: No pedal edema RESP: Respirations are unlabored, no audible wheezing GI: Abdomen non-distended MUSCULOSKELETAL: Bilateral lower extremity strength is normal and symmetric. No atrophy or tone abnormalities are noted. Lumbar spine: There is slight pain to palpation over the lumbar spine and paraspinous muscles. Buttock: Negative pain to palpation over the PSIS, Amanda's test is negative Extremities: Peripheral joint ROM is full and pain free without obvious instability or laxity in all four extremities. No edema or skin discolorations noted. Gait: Gait is slow NEUR: No loss of sensation is noted. Cranial nerves are grossly intact. Assessment and Plan: Assessment: 1. SI joint dysfunction 2. Lumbar spondylosis 3. Obesity Plan: 1. Counseling: The patient was counseled on BODY MASS INDEX, EXERCISE. Specifically, the patient was instructed regarding the importance of weight control, and exercise in the context of both chronic pain and overall health. 2. Procedures: None currently 3. Consultations: None 4. Investigations: None 5. Medications: Prescription for gabapentin 100 mg 3 times a day provided today with one refill. Encouraged patient to discuss with PCP () to see if she can take over prescribing this. 6. Disposition: When necessary PQRS Measure Charge Sheet Measure #130: Documentation of Current Meds in Medical Chart: Patient's medications documented in chart Measure #226: Tobacco Use: Screen & Cessation Intervention: Pt not a tobacco user Measure #47: Advance Care Plan: Advance care planning discussed & documented, pt chose/unable to give Measure #412: Opioid Treatment Agreement: Documented signed opioid trtmnt agreemnt min once during opioid trtmnt Measure #408: Opioid Therapy Follow-up Evaluation: Patient had f/u eval minimum every 3 months during opioid therapy Measure #317: Preventitive Care & Scrn High Bld Press & F/U: Pre-hypertensive or hypertensive BP documented, pt will f/u with PCP Measure #128: Body Mass Index (BMI) Screening & Follow-up: BMI documented ABOVE normal parameters - f/u documented Measure #131: Pain Assessment & Follow-up: Pain negative & plan not documented, Follow-up PRN Measure #431: Unhealthy Alcohol Use Preventative Care & Scrn: Patient not identified as an unhealthy alcohol user PQRS Narrative: Smoking Status Never smoker Pain Intensity [None Back] 0 Hx Alcohol Use (MH) No Home Medications: Ambulatory Orders Cholecalciferol [Vitamin D3] 2,000 unit PO DAILY 02/22/18 L.acidoph,Paracasei, B.lactis [Probiotic] 1 cap PO AC-SUPPER 02/22/18 Levothyroxine Sodium [Synthroid] 112 mcg PO QAM 02/22/18 Pravastatin Sodium [Pravachol] 20 mg PO HS 02/22/18 Sertraline [Zoloft] 100 mg PO QAM 02/22/18 Losartan Potassium [Cozaar] 100 mg PO QAM 09/08/18 Methenamine Hippurate [Hiprex] 1 gm PO QID 09/08/18 Metoprolol Tartrate [Lopressor] 25 mg PO BID 09/08/18 traZODone HCL [Desyrel] 25 mg PO HS 09/08/18 Polyethylene Glycol 3350 [Miralax] 17 gm PO Q48H 09/14/18 Gabapentin [Neurontin] 100 mg PO Q8H 12/31/18 Potassium Chloride [K-Tab ER] 10 meq PO QAM 02/22/19 Ranitidine HCl 150 mg PO PC-SUPPER PRN 02/22/19 Vit C/E/Zn/Coppr/Lutein/Zeaxan [Preservision Areds 2 Softgel] 1 tab PO DAILY 02/22/19 traMADol HCl [Ultram] 50 mg PO TID PRN 02/22/19 Hydrochlorothiazide 25 mg PO DAILY 03/21/19 Meloxicam [Mobic] 7.5 mg PO BID 04/28/19 Controlled Substance Measures - Controlled Substance Measures Is patient prescribed a controlled substance at discharge?: Yes When asked, does pt state using other controlled substances?: Yes If prescribed controlled substance>3 days was MAPS reviewed?: Yes If Rx opioid, was Start Talking consent form obtained?: Yes If opioid is for acute pain is fill amount 7 days or less?: No Was information provided regarding opioid addiction?: Yes
== END ==
LOC: PNWHC3 13:58
PROVIDERS: ATTEND Anesthesiology
DX: M53.3 Sacrococcygeal disorders, not elsewhere classified (principal); M47.816 Spondylosis without myelopathy or radiculopathy, lumbar region; E66.9 Obesity, unspecified; Z79.899 Other long term (current) drug therapy; Z79.891 Long term (current) use of opiate analgesic; Z79.1 Long term (current) use of non-steroidal anti-inflammatories (NSAID)
CPT/HCPCS: 99211

== ENCOUNTER → 2019-10-20 | Outpatient (CLI) | payer MEDICARE ==
[2019-10-20 11:43] VITALS: BP 159/70; PULSE 55; RESP 18
--- NOTE | 2019-10-21 07:25 | P.PAINPG ---
Subjective Progress Note Date: 10/20/19 This is a 79-year-old female who presents to clinic. In the past, we have done right SI joint injection, last done on 06/07/2019. She reported excellent relief from this procedure, and was instructed to follow-up as needed. In the past, we have also done right lumbar radiofrequency ablation. Her PCP is writing her for tramadol and Mobic. Our offices prescribing gabapentin, however she is not experiencing any significant relief from this and is currently weaning the medication. She returns today for follow-up. She reports that prior SI joint injection provided her about 3 months of relief. She reports that over the last 6 weeks, her low back pain has returned, rated as 4-10/10, described as sharp stabbing and intermittent, radiating to right buttocks. Pain is worse with standing, walking and better with heat, ice, medications. She does report numbness and tingling in right lateral thigh, lateral calf and lateral aspect of foot, this is present only at night. She also has chronic numbness in her right anterior thigh since her hip surgery. She is also complaining of right knee pain. Review of systems is negative for chest pain, shortness of breath, new onset weakness, numbness/tingling, abdominal pain, malaise, fever, night sweats, chills, homicidal or suicidal ideation, or bowel or bladder incontinence. She does report feeling fatigued, as well as hot flashes. Objective Vital Signs: Reviewed in EMR GENERAL: Well appearing, in no acute distress, PSYCH: Mood and affect is appropriate. Awake, alert, and oriented SKIN: Skin color, texture, turgor normal, no rashes or lesions HEENT: Normocephalic, atraumatic. EOM intact CV: No pedal edema RESP: Respirations are unlabored, no audible wheezing GI: Abdomen non-distended MUSCULOSKELETAL: Bilateral lower extremity strength is normal and symmetric. No atrophy or tone abnormalities are noted. Lumbar spine: There is slight pain to palpation over the lumbar spine and paraspinous muscles, more on the right. Facet loading is positive on the right Buttock: Tenderness to palpation over right PSIS, Amanda's test is positive on the right, sacral thrust positive on the right Extremities: Peripheral joint ROM is full and pain free without obvious instability or laxity in all four extremities. No edema or skin discolorations noted. Tenderness to palpation along right lateral knee joint. Crepitus present in right knee joint. Gait: Gait is slow NEUR: No loss of sensation is noted. Cranial nerves are grossly intact. Assessment and Plan: Assessment: 1. SI joint dysfunctionright-sided 2. Lumbar spondylosis 3. Obesity 4. Right knee pain Plan: 1. Counseling: The patient was counseled on BODY MASS INDEX, EXERCISE. Specifically, the patient was instructed regarding the importance of weight control, and exercise in the context of both chronic pain and overall health. 2. Procedures: We'll schedule right SI joint injection 3. Consultations: Physical therapy referral given for SI joint exercises as well as low back and core strengthening and stretching exercises. Patient was instructed to start physical therapy after SI joint injection 4. Investigations: None 5. Medications: No prescriptions written today, patient currently weaning gabapentin and does not require refills in the future 6. Disposition: For above-mentioned procedure PQRS Measure Charge Sheet Measure #130: Documentation of Current Meds in Medical Chart: Patient's medications documented in chart Measure #226: Tobacco Use: Screen & Cessation Intervention: Pt not a tobacco user Measure #47: Advance Care Plan: Advance care planning discussed & documented, pt chose/unable to give Measure #412: Opioid Treatment Agreement: Documented signed opioid trtmnt agreemnt min once during opioid trtmnt Measure #408: Opioid Therapy Follow-up Evaluation: Patient had f/u eval minimum every 3 months during opioid therapy Measure #317: Preventitive Care & Scrn High Bld Press & F/U: Pre-hypertensive or hypertensive BP documented, pt will f/u with PCP Measure #128: Body Mass Index (BMI) Screening & Follow-up: BMI documented ABOVE normal parameters - f/u documented Measure #131: Pain Assessment & Follow-up: Pain positive and plan documented, follow-up scheduled Measure #431: Unhealthy Alcohol Use Preventative Care & Scrn: Patient not identified as an unhealthy alcohol user PQRS Measure Charge Sheet PQRS Narrative: Smoking Status Never smoker Pain Intensity [Lower Back] 5 Scale Used Numeric (1 - 10) Hx Alcohol Use (MH) No Home Medications: Ambulatory Orders Cholecalciferol [Vitamin D3] 2,000 unit PO DAILY 02/22/18 L.acidoph,Paracasei, B.lactis [Probiotic] 1 cap PO AC-SUPPER 02/22/18 Levothyroxine Sodium [Synthroid] 112 mcg PO QAM 02/22/18 Pravastatin Sodium [Pravachol] 20 mg PO HS 02/22/18 Sertraline [Zoloft] 100 mg PO QAM 02/22/18 Losartan Potassium [Cozaar] 100 mg PO QAM 09/08/18 Methenamine Hippurate [Hiprex] 1 gm PO TID 09/08/18 Metoprolol Tartrate [Lopressor] 25 mg PO BID 09/08/18 traZODone HCL [Desyrel] 25 mg PO HS 09/08/18 Polyethylene Glycol 3350 [Miralax] 17 gm PO Q48H 09/14/18 Gabapentin [Neurontin] 100 mg PO BID 12/31/18 Potassium Chloride [K-Tab ER] 10 meq PO QAM 02/22/19 Vit C/E/Zn/Coppr/Lutein/Zeaxan [Preservision Areds 2 Softgel] 1 tab PO DAILY 02/22/19 traMADol HCl [Ultram] 50 mg PO TID PRN 02/22/19 Hydrochlorothiazide 25 mg PO DAILY 03/21/19 Meloxicam [Mobic] 7.5 mg PO BID PRN 04/28/19 Controlled Substance Measures - Controlled Substance Measures Is patient prescribed a controlled substance at discharge?: No
== END | disposition home or self-care (01) ==
LOC: PNWHC3 11:13
PROVIDERS: ATTEND Anesthesiology
DX: M53.3 Sacrococcygeal disorders, not elsewhere classified (principal); M47.816 Spondylosis without myelopathy or radiculopathy, lumbar region; E66.9 Obesity, unspecified; M25.561 Pain in right knee; Z79.899 Other long term (current) drug therapy; Z79.1 Long term (current) use of non-steroidal anti-inflammatories (NSAID); Z79.891 Long term (current) use of opiate analgesic
CPT/HCPCS: 99211

== ENCOUNTER → 2019-10-27 | Outpatient (CLI) | payer MEDICARE ==
--- NOTE | 2019-10-28 07:22 | XR ---
EXAMINATION TYPE: XR ankle complete LT DATE OF EXAM: 10/27/2019 COMPARISON: NONE HISTORY: 79-year-old female with left ankle pain TECHNIQUE: 3 views FINDINGS: There may be underlying pes planus deformity. Some joint space narrowing is suggested along the dorsa l midfoot. Moderate sized plantar calcaneal spur. Small delineation to the Achilles tendon. Mild medi al sided soft tissue swelling. Ankle mortise is congruent with preservation of the distal tibiofibula r overlap. Talar dome is intact. No acute fracture, subluxation, or dislocation. IMPRESSION: 1. Possible underlying pes planus which could be better evaluated with a weightbearing lateral view o f the foot. 2. Moderate-sized plantar calcaneal spur. 3. Suggestion of some degenerative change within the mid foot. 4. Some medial sided soft tissue swelling. No acute osseous abnormality seen.
== END | disposition home or self-care (01) ==
LOC: RADXRMAIN 14:12
PROVIDERS: ATTEND Family Medicine
DX: M77.32 Calcaneal spur, left foot (principal)

== ENCOUNTER 2019-11-04 14:15 | Emergency (ER) | payer MEDICARE ==
[2019-11-04 14:32] VITALS: TEMP 97.5
[2019-11-04] MEDS ORDERED: ONDANSETRON 4 MG/2 ML VIAL IVP STA (14:51)
[2019-11-04] MEDS ORDERED: SODIUM CHLORIDE 0.9% 1,000 ML IV STA (14:51)
--- NOTE | 2019-11-04 15:29 | ED ---
General Adult HPI - General Chief complaint: Nausea/Vomiting/Diarrhea Stated complaint: Weakness, tired Time Seen by Provider: 11/04/19 14:51 Source: patient, RN notes reviewed Mode of arrival: ambulatory Limitations: no limitations - History of Present Illness Initial comments: Patient is a pleasant 79-year-old female presenting to the emergency Department with complaints of generalized fatigue. Symptoms have progressively the past month. Patient did see her primary care physician who told her it was related to her depression and change some medications. Thyroid Medication was also increased as well as her Zoloft. No isolated area of weakness. Patient feels slightly weak all over and fatigued. Patient admits to feeling somewhat depressed. Patient denies any suicidal or homicidal thoughts. Patient has nausea however is minimal and refuses any medication. No abdominal pain. No chest pain. No confusion. - Related Data Home Medications Medication Instructions Recorded Confirmed Cholecalciferol [Vitamin D3] 2,000 unit PO DAILY 02/22/18 10/20/19 L.acidoph,Paracasei, B.lactis 1 cap PO AC-SUPPER 02/22/18 10/20/19 [Probiotic] Levothyroxine Sodium [Synthroid] 112 mcg PO QAM 02/22/18 10/20/19 Pravastatin Sodium [Pravachol] 20 mg PO HS 02/22/18 10/20/19 Sertraline [Zoloft] 100 mg PO QAM 02/22/18 10/20/19 Losartan Potassium [Cozaar] 100 mg PO QAM 09/08/18 10/20/19 Methenamine Hippurate [Hiprex] 1 gm PO TID 09/08/18 10/20/19 Metoprolol Tartrate [Lopressor] 25 mg PO BID 09/08/18 10/20/19 traZODone HCL [Desyrel] 25 mg PO HS 09/08/18 10/20/19 Polyethylene Glycol 3350 [Miralax] 17 gm PO Q48H 09/14/18 10/20/19 Gabapentin [Neurontin] 100 mg PO BID 12/31/18 10/20/19 Potassium Chloride [K-Tab ER] 10 meq PO QAM 02/22/19 10/20/19 Vit C/E/Zn/Coppr/Lutein/Zeaxan 1 tab PO DAILY 02/22/19 10/20/19 [Preservision Areds 2 Softgel] traMADol HCl [Ultram] 50 mg PO TID PRN 02/22/19 10/20/19 Hydrochlorothiazide 25 mg PO DAILY 03/21/19 10/20/19 Meloxicam [Mobic] 7.5 mg PO BID PRN 04/28/19 10/20/19 Previous Rx's Medication Instructions Recorded Nitrofurantoin Monohyd/M-Cryst 100 mg PO Q12HR #14 cap 11/04/19 [Macrobid] Allergies Allergy/AdvReac Type Severity Reaction Status Date / Time Sulfa (Sulfonamide Allergy Rash/Hives Verified 11/04/19 14:28 Antibiotics) Review of Systems ROS Statement: Those systems with pertinent positive or pertinent negative responses have been documented in the HPI. ROS Other: All systems not noted in ROS Statement are negative. Constitutional: Denies: fever Eyes: Denies: eye pain ENT: Denies: ear pain Respiratory: Denies: cough, dyspnea Cardiovascular: Denies: chest pain Endocrine: Reports: fatigue Gastrointestinal: Reports: nausea. Denies: abdominal pain Genitourinary: Denies: dysuria Musculoskeletal: Denies: back pain Skin: Denies: rash Neurological: Denies: headache, confusion, abnormal gait Past Medical History Past Medical History: Cancer, Deep Vein Thrombosis (DVT), GERD/Reflux, Hyperlipidemia, Hypertension, Musculoskeletal Disorder, Osteoarthritis (OA), Thyroid Disorder Additional Past Medical History / Comment(s): RIGHT KNEE IS BECOMING MORE PAINFUL. DVT 2008. Insomnia, Chronic UTI's, Varicose veins, Constipation, hx "ischemic colitis" 2010, Skin cancer. PAIN LOWER BACK, SPINAL STENOSIS; NT RT LEG/FOOT. EDEMA MARISOL ANKLES. History of Any Multi-Drug Resistant Organisms: None Reported Past Surgical History: Bladder Surgery, Hysterectomy, Orthopedic Surgery Additional Past Surgical History / Comment(s): Parathyroidectomy, Bladder suspension, Surgery for fx rt femur Past Anesthesia/Blood Transfusion Reactions: No Reported Reaction Past Psychological History: Depression Smoking Status: Never smoker Past Alcohol Use History: None Reported Past Drug Use History: None Reported - Past Family History Father Family Medical History: Cancer General Exam Limitations: no limitations General appearance: alert, in no apparent distress Head exam: Present: normocephalic Eye exam: Present: normal appearance, PERRL ENT exam: Present: normal oropharynx Neck exam: Present: normal inspection Respiratory exam: Present: normal lung sounds bilaterally Cardiovascular Exam: Present: regular rate, normal rhythm GI/Abdominal exam: Present: soft. Absent: tenderness Neurological exam: Present: alert, normal gait. Absent: motor sensory deficit Psychiatric exam: Present: normal affect, normal mood Skin exam: Present: normal color Course Vital Signs 11/04/19 11/04/19 14:28 15:32 Temperature 97.5 F L Pulse Rate 60 60 Respiratory 18 18 Rate Blood Pressure 161/71 189/82 O2 Sat by Pulse 97 100 Oximetry EKG Findings - EKG Comments: EKG Findings:: Sinus bradycardia 54. Premature atrial complexes present. CA 160. QRS 76. QT 464. QTC 440. Normal axis. Normal QRS. No acute ST change. Medical Decision Making - Medical Decision Making Patient reevaluated and resting comfortably in bed. Patient and family updated on results and plan. She'll be given additional fluid bolus and started on IV antibiotics followed by prescription. - Lab Data Result diagrams: 11/04/19 15:35 11/04/19 15:35 Lab Results 11/04/19 11/04/19 11/04/19 Range/Units 15:35 15:35 15:35 WBC 7.1 (3.8-10.6) k/uL RBC 5.47 H (3.80-5.40) m/uL Hgb 16.5 H (11.4-16.0) gm/dL Hct 50.6 H (34.0-46.0) % MCV 92.6 (80.0-100.0) fL MCH 30.1 (25.0-35.0) pg MCHC 32.5 (31.0-37.0) g/dL RDW 13.1 (11.5-15.5) % Plt Count 210 (150-450) k/uL Sodium 142 (137-145) mmol/L Potassium 4.2 (3.5-5.1) mmol/L Chloride 104 (98-107) mmol/L Carbon Dioxide 29 (22-30) mmol/L Anion Gap 9 mmol/L BUN 31 H (7-17) mg/dL Creatinine 0.84 (0.52-1.04) mg/dL Est GFR (CKD-EPI)AfAm 76 (>60 ml/min/1.73 sqM) Est GFR (CKD-EPI)NonAf 66 (>60 ml/min/1.73 sqM) Glucose 94 (74-99) mg/dL Calcium 10.0 (8.4-10.2) mg/dL Total Bilirubin 0.7 (0.2-1.3) mg/dL AST 25 (14-36) U/L ALT 13 (4-34) U/L Alkaline Phosphatase 62 (38-126) U/L Total Protein 8.4 H (6.3-8.2) g/dL Albumin 4.8 (3.5-5.0) g/dL TSH 2.060 (0.465-4.680) mIU/L Free T4 1.76 (0.78-2.19) ng/dL Free T3 pg/mL 3.6 (2.8-5.3) pg/ml Urine Color Yellow Urine Appearance Clear (Clear) Urine pH 5.5 (5.0-8.0) Ur Specific [place] 1.021 (1.001-1.035) Urine Protein Negative (Negative) Urine Glucose (UA) Negative (Negative) Urine Ketones Negative (Negative) Urine Blood Negative (Negative) Urine Nitrite Positive H (Negative) Urine Bilirubin Negative (Negative) Urine Urobilinogen <2.0 (<2.0) mg/dL Ur Leukocyte Esterase Large H (Negative) Urine RBC 5 (0-5) /hpf Urine WBC 83 H (0-5) /hpf Urine WBC Clumps Few H (None) /hpf Ur Squamous Epith Cells 1 (0-4) /hpf Urine Bacteria Moderate H (None) /hpf Hyaline Casts 7 H (0-2) /lpf Urine Mucus Rare H (None) /hpf Disposition Clinical Impression: Dehydration, Urinary tract infection Disposition: HOME SELF-CARE Condition: Stable Instructions (If sedation given, give patient instructions): Dehydration (ED), Urinary Tract Infection in Women (ED), Urinary Tract Infection in Older Adults (ED) Additional Instructions: Please follow-up with primary care physician in the next couple days for recheck. Have primary care physician follow-up with urine culture results. Return for increased fatigue or weakness, fevers, altered mental status, worsening symptoms or other concerns. Prescription was sent to [facility] Prescriptions: Nitrofurantoin Monohyd/M-Cryst [Macrobid] 100 mg PO Q12HR #14 cap Is patient prescribed a controlled substance at d/c from ED?: No Referrals: John Mirza [Primary Care Provider] - 1-2 days Time of Disposition: 16:33
[2019-11-04 15:56] LABS: Appearance,Urine Clear (Clear); Bacteria,Urine Moderate /hpf; Bilirubin,Urine Negative (Negative); Blood,Urine Negative (Negative); Color,Urine Yellow; Glucose,Urine (UA) Negative (Negative); Hyaline Casts,Urine 7 /lpf (0-2); Ketones,Urine Negative (Negative); Leukocyte Esterase,Urine Large (Negative); Mucus,Urine Rare /hpf; Nitrite,Urine Positive (Negative); PH, Urine 5.5 (5.0-8.0); Protein,Urine Negative (Negative); RBC,Urine 5 /hpf (0-5); Specific Gravity,Urine 1.021 (1.001-1.035); Squamous Epithelial Cell,Urine 1 /hpf (0-4); Urobilinogen,Urine <2.0 mg/dL (<2.0); WBC,Urine 83 /hpf (0-5)
[2019-11-04 16:00] LABS: Albumin 4.8 g/dL (3.5-5.0); Potassium 4.2 mmol/L (3.5-5.1); Total Bilirubin 0.7 mg/dL (0.2-1.3); Total Protein 8.4 g/dL (6.3-8.2)
[2019-11-04 16:15] LABS: T4, Free (Free Thyroxine) 1.76 ng/dL (0.78-2.19)
[2019-11-04 16:17] LABS: HCT 50.6 % (34.0-46.0); HGB 16.5 gm/dL (11.4-16.0); MCH 30.1 pg (25.0-35.0); MCHC 32.5 g/dL (31.0-37.0); MCV 92.6 fL (80.0-100.0); Platelet Count 210 k/uL (150-450); RBC 5.47 m/uL (3.80-5.40); RDW 13.1 % (11.5-15.5); WBC 7.1 k/uL (3.8-10.6)
[2019-11-04] MEDS ORDERED: SODIUM CHLORIDE 0.9% 500 ML 500 ML IV STA ×2 (16:19→16:32)
[2019-11-04] MEDS ORDERED: cefTRIAXone IN SWFI 1,000 MG/10 ML SYRINGE IVP STA (16:19)
--- NOTE | 2019-11-04 16:23 | XR ---
EXAMINATION TYPE: XR chest 2V DATE OF EXAM: 11/04/2019 COMPARISON: 06/08/2018 INDICATION: Fatigue and lethargy nausea TECHNIQUE: Frontal and lateral views of the chest are obtained. FINDINGS: The heart size is prominent. The pulmonary vasculature is normal. The lungs are clear. IMPRESSION: 1. Mild cardiomegaly. 2. No acute pulmonary process.
[2019-11-04 17:14] LABS: Eosinophils # (M) 0.28 k/uL (0-0.7); Lymphocytes # (M) 2.13 k/uL (1.0-4.8); Monocytes # (M) 0.57 k/uL (0-1.0); Neutrophils # (M) 4.12 k/uL (1.3-7.7); Neutrophils % (M) 58 %; Nucleated Red Blood Cells 0 /100 WBC (0-0); Total Cells Counted 100
[2019-11-04 17:27] VITALS: BP 167/72; PULSE 65
[2019-11-04 17:28] VITALS: RESP 20
== END 2019-11-04 17:31 | disposition home or self-care (01) ==
LOC: EC 14:15
DX: N39.0 Urinary tract infection, site not specified (principal); E86.0 Dehydration; E07.9 Disorder of thyroid, unspecified; I10 Essential (primary) hypertension; F31.9 Bipolar disorder, unspecified; Z79.899 Other long term (current) drug therapy; Z79.890 Hormone replacement therapy; Z88.2 Allergy status to sulfonamides; Z86.718 Personal history of other venous thrombosis and embolism; Z85.828 Personal history of other malignant neoplasm of skin
CPT/HCPCS: 36415; 93005; 84439; 84481; 80053; 84443; 85025; 81001; 87086; 71046; 99285; 96374; 96361; J0696; 87077; 87186

== ENCOUNTER 2019-11-10 13:50 | Emergency (ER) | payer MEDICARE ==
[2019-11-10 13:55] VITALS: TEMP 97.9
--- NOTE | 2019-11-10 14:33 | ED ---
Extremity Problem HPI - General Chief complaint: Extremity Problem,Nontraumatic Stated complaint: Ankle pain Time Seen by Provider: 11/10/19 14:03 Source: patient, family Mode of arrival: wheelchair Limitations: no limitations - History of Present Illness Initial comments: Patient is 79-year-old female presenting to emergency Department with a chief complaint of left ankle pain. Patient reports symptoms began about 1 month ago. Patient denies any traumatic injuries to the left ankle. She typically uses a walker to ambulate throughout the house. She went to her primary care who obtained an x-ray which was indicative of possible arthritis. Patient states over the last week she developed increased pain and last night when the, she went back to her primary care who ordered an ultrasound and MRI which she has scheduled for November. Patient reports last night when she woke up and attempted to walk, she felt a "crunch" in the left ankle. Patient reports now the pain is increasing severity. Patient states the bilateral lower extremity edema is the baseline. Patient is not on blood thinners. - Related Data Home Medications Medication Instructions Recorded Confirmed Cholecalciferol [Vitamin D3] 2,000 unit PO DAILY 02/22/18 10/20/19 L.acidoph,Paracasei, B.lactis 1 cap PO AC-SUPPER 02/22/18 10/20/19 [Probiotic] Levothyroxine Sodium [Synthroid] 112 mcg PO QAM 02/22/18 10/20/19 Pravastatin Sodium [Pravachol] 20 mg PO HS 02/22/18 10/20/19 Sertraline [Zoloft] 100 mg PO QAM 02/22/18 10/20/19 Losartan Potassium [Cozaar] 100 mg PO QAM 09/08/18 10/20/19 Methenamine Hippurate [Hiprex] 1 gm PO TID 09/08/18 10/20/19 Metoprolol Tartrate [Lopressor] 25 mg PO BID 09/08/18 10/20/19 traZODone HCL [Desyrel] 25 mg PO HS 09/08/18 10/20/19 Polyethylene Glycol 3350 [Miralax] 17 gm PO Q48H 09/14/18 10/20/19 Gabapentin [Neurontin] 100 mg PO BID 12/31/18 10/20/19 Potassium Chloride [K-Tab ER] 10 meq PO QAM 02/22/19 10/20/19 Vit C/E/Zn/Coppr/Lutein/Zeaxan 1 tab PO DAILY 02/22/19 10/20/19 [Preservision Areds 2 Softgel] traMADol HCl [Ultram] 50 mg PO TID PRN 02/22/19 10/20/19 Hydrochlorothiazide 25 mg PO DAILY 03/21/19 10/20/19 Meloxicam [Mobic] 7.5 mg PO BID PRN 04/28/19 10/20/19 Previous Rx's Medication Instructions Recorded Nitrofurantoin Monohyd/M-Cryst 100 mg PO Q12HR #14 cap 11/04/19 [Macrobid] Allergies Allergy/AdvReac Type Severity Reaction Status Date / Time Sulfa (Sulfonamide Allergy Rash/Hives Verified 11/10/19 13:55 Antibiotics) Review of Systems ROS Statement: Those systems with pertinent positive or pertinent negative responses have been documented in the HPI. ROS Other: All systems not noted in ROS Statement are negative. Past Medical History Past Medical History: Cancer, Deep Vein Thrombosis (DVT), GERD/Reflux, Hyperlipidemia, Hypertension, Musculoskeletal Disorder, Osteoarthritis (OA), Thyroid Disorder Additional Past Medical History / Comment(s): RIGHT KNEE IS BECOMING MORE PAINFUL. DVT 2008. Insomnia, Chronic UTI's, Varicose veins, Constipation, hx "ischemic colitis" 2010, Skin cancer. PAIN LOWER BACK, SPINAL STENOSIS; NT RT LEG/FOOT. EDEMA MARISOL ANKLES. History of Any Multi-Drug Resistant Organisms: None Reported Past Surgical History: Bladder Surgery, Hysterectomy, Orthopedic Surgery Additional Past Surgical History / Comment(s): Parathyroidectomy, Bladder suspension, Surgery for fx rt femur Past Anesthesia/Blood Transfusion Reactions: No Reported Reaction Past Psychological History: Depression Smoking Status: Never smoker Past Alcohol Use History: None Reported Past Drug Use History: None Reported - Past Family History Father Family Medical History: Cancer General Exam Limitations: no limitations General appearance: alert, in no apparent distress Head exam: Present: atraumatic, normocephalic, normal inspection Eye exam: Present: normal appearance, PERRL, EOMI Pupils: Present: normal accommodation ENT exam: Present: normal exam Neck exam: Present: normal inspection, full ROM Respiratory exam: Present: normal lung sounds bilaterally Cardiovascular Exam: Present: regular rate, normal rhythm, normal heart sounds Extremities exam: Present: full ROM, tenderness (Tenderness along left lower extremity. Pain along the medial malleoli.), pedal edema (Bilateral at baseline), calf tenderness. Absent: normal inspection (Bilateral lower extremity edema at baseline. No swelling at the left ankle. No signs of obvious trauma. Pain with plantar flexion.) Back exam: Present: normal inspection, full ROM Neurological exam: Present: alert, oriented X3 Psychiatric exam: Present: normal affect, normal mood Skin exam: Present: warm, dry, intact, normal color Course Vital Signs 11/10/19 11/10/19 13:51 15:53 Temperature 97.9 F Pulse Rate 61 62 Respiratory 20 18 Rate Blood Pressure 161/78 177/83 O2 Sat by Pulse 99 99 Oximetry Procedures - Orthopedic Splinting/Casting Injury #1 Side: left Lower Extremity Injury Location: ankle Lower Extremity Immobilizer: Kleber wrap Medical Decision Making - Medical Decision Making Patient is 79-year-old female presenting to the emergency department with a chief complaint of left ankle pain. Patient does have bilateral lower extremity edema at baseline. On physical exam she does have pain with plantar flexion. X-ray of the left ankle is indicative of pes planus and moderated-sized calcaneal spurs. No immediate fractures or dislocations noted. Lower extremity ultrasound is negative for DVT but a popliteal cyst was identified. Patient does not have any tenderness in the popliteal region of the left knee. Patient denies any shortness of breath, chest pain. She denies any trauma to the left ankle. Patient really has an appointment for an MRI in 1 week. She has another appointment with Dr. Duong. Strict return parameters were thoroughly discussed with patient is understanding and agreeable. Case discussed with physician. Disposition Clinical Impression: Left ankle pain, Popliteal cyst, unruptured Disposition: HOME SELF-CARE Condition: Stable Instructions (If sedation given, give patient instructions): Arthralgia (ED) Additional Instructions: Please follow up with . Keep the foot elevated above heart level. Apply ice compress and rest. Return to emergency department if symptoms worsen. Is patient prescribed a controlled substance at d/c from ED?: No Referrals: John Mirza [Primary Care Provider] - 1-2 days Time of Disposition: 16:04
--- NOTE | 2019-11-10 14:59 | XR ---
EXAMINATION TYPE: XR ankle complete LT DATE OF EXAM: 11/10/2019 CLINICAL HISTORY: Pain for one month. TECHNIQUE: Frontal, lateral and oblique images of the left ankle are obtained. COMPARISON: Left ankle x-ray 2 weeks ago. FINDINGS: Demineralization is redemonstrated. There is no acute fracture/dislocation evident in the l eft ankle. The ankle mortise appears within normal limits. Moderate to large size inferior calcaneal spur it is redemonstrated. Probable pes planus or flat foot again seen. The overlying soft tissue ap pears unremarkable. IMPRESSION: As above. No significant change from prior.
--- NOTE | 2019-11-10 15:26 | US ---
EXAMINATION TYPE: US venous doppler duplex LE LT DATE OF EXAM: 11/10/2019 3:15 PM COMPARISON: Bilateral lower extremity venous ultrasound February 22, 2018 CLINICAL HISTORY: unilat leg swelling. SIDE PERFORMED: Left TECHNIQUE: The lower extremity deep venous system is examined utilizing real time linear array sonog bonita with graded compression, doppler sonography and color-flow sonography. VESSELS IMAGED: External Iliac Vein (EIV) Common Femoral Vein Deep Femoral Vein Greater Saphenous Vein * Femoral Vein Popliteal Vein Small Saphenous Vein * Proximal Calf Veins (* superficial vessels) Left Leg: Appears negative for DVT 5.6cm popiteal cyst seen Grayscale, color doppler, spectral doppler imaging performed of the deep veins of the left lower extr emity. There is normal flow, compressibility, vascular waveforms. IMPRESSION: No evidence of acute DVT in the left lower extremity on current study. Towards end of ex am technologist curry a moderate sized popliteal cyst which was likely present on prior exam towards end of study.
[2019-11-10 15:54] VITALS: PULSE 62; RESP 18
[2019-11-10 16:22] VITALS: BP 156/76
== END 2019-11-10 16:22 | disposition home or self-care (01) ==
LOC: EC 13:50
DX: M71.22 Synovial cyst of popliteal space [Baker], left knee (principal); M25.572 Pain in left ankle and joints of left foot; R60.0 Localized edema; M21.42 Flat foot [pes planus] (acquired), left foot; Z88.2 Allergy status to sulfonamides; F32.9 Major depressive disorder, single episode, unspecified; E78.5 Hyperlipidemia, unspecified; I10 Essential (primary) hypertension; G47.00 Insomnia, unspecified; M19.90 Unspecified osteoarthritis, unspecified site; E07.9 Disorder of thyroid, unspecified; Z79.890 Hormone replacement therapy; Z79.899 Other long term (current) drug therapy; Z85.828 Personal history of other malignant neoplasm of skin; Z86.718 Personal history of other venous thrombosis and embolism; Z98.890 Other specified postprocedural states
CPT/HCPCS: 99284

== ENCOUNTER → 2019-11-18 | Outpatient (CLI) | payer MEDICARE ==
--- NOTE | 2019-11-20 05:07 | MR ---
EXAMINATION TYPE: MR ankle LT wo con DATE OF EXAM: 11/18/2019 COMPARISON: None HISTORY: Lt medial ankle and arch pain Multiplanar multiecho imaging of the left ankle was performed without contrast. There is subcutaneous edema around the ankle. Ankle mortise is anatomic. There is mild narrowing of t he ankle joint space. The Achilles tendon is intact. Plantar fascia is intact. Medial and lateral fle xor tendons are intact. There are some degenerative cysts on both sides of the navicular cuneiform deanna int. There is some spurring at the talonavicular joint. There is a 1 cm degenerative cyst in the ante rior calcaneus at the subtalar joint. There is small degenerative cyst also in the inferior talus at the subtalar joint. There is small synovial cyst on the anterior aspect of the talonavicular joint. T he collateral ligaments are intact. IMPRESSION: There is some osteoarthritic changes. No fracture. No evidence of ligament or tendon tear. Mild subcu taneous edema. Soft tissue edema noted anterior to the Achilles tendon.
== END | disposition home or self-care (01) ==
LOC: RADMRIMAIN 14:58
PROVIDERS: ATTEND Family Medicine
DX: M19.072 Primary osteoarthritis, left ankle and foot (principal)

== ENCOUNTER → 2020-07-23 | Outpatient (CLI) | payer MEDICARE ==
[2020-07-23 11:04] VITALS: BP 142/81; PULSE 65; RESP 14; TEMP 98.3
--- NOTE | 2020-07-23 11:12 | P.PN ---
Subjective Progress Note Date: 07/23/20 This is an 80-year-old lady with history of multiple joint pain and osteoporosis. The patient has a right shoulder injection by Dr. Alejo recently. She also used to have steroid injection on both knees however the last injection was in November of this year on the right knee. Dr. Duong does not think that knee replacement on the right side is feasible because of history of hardware placement in the right femur after a femur fracture previously. The patient complains today of bilateral knee pain and right leg pain due to varicose veins when she stands for long period of time. The patient tried Visalia 5 mg 1 primary care physician previously which did not help her pain. Patient denies new-onset weakness, bowel/bladder incontinence, or any other signs or symptoms of cauda equina syndrome. There are no signs of acute intoxication, and no indications of medication diversion or overuse. In addition to above, 13-point review of systems is also negative for chest pain, shortness of breath, changes in vision, changes in hearing, new onset weakness, abdominal pain, diarrhea, extreme fatigue, malaise, fever, skin changes, homicidal or suicidal ideation, or bowel or bladder incontinence. Vital Signs: Reviewed in EMR Gen: AAOx3, NAD HEENT: PERRLA,hearing grossly normal Pulm: resp unlabored Neck: supple, trachea midline Positive tenderness on the lateral medial joint line of the right knee. Neuro: CN II-XII grossly intact, Imaging: Reviewed in EMR/chart Assessment: Bilateral knee osteoarthritis Right shoulder arthropathy Morbid obesity Varicose veins in the lower extremities Plan: 1. Explanation: Opioid and psychological risk scores were reviewed. Diagnoses, prognoses, and multiple treatment options including but not limited to physical therapy, interventional therapies, adjuvant medical therapies, narcotic medication therapies, and surgery were discussed with the patient and all questions were answered to the patient's satisfaction. 2. Opioid agreement: Signed with the patient and the patient is warned not to use opioids while driving or before driving and not to combine opioids with benzodiazepines or alcohol. 3. Counseling: The patient was counseled extensively on SMOKING CESSATION, BODY MASS INDEX, EXERCISE. Specifically, the patient was instructed regarding the importance of smoking cessation, obesity, and exercise in the context of both chronic pain and overall health. 4. Procedures: Schedule for right knee steroid injection 5. Consultations: None 6. Investigations: None 7. Medications: Visalia 7.5 mg twice a day #15 pills of Visalia with no refills 8. Disposition: Return to the above-mentioned procedure as soon as possible 9. Maps were reviewed and were appropriate. Objective - Vital Signs Vital signs: Vital Signs Temp 98.3 F 07/23/20 10:52 Pulse 65 07/23/20 10:52 Resp 14 07/23/20 10:52 BP 142/81 07/23/20 10:52 Pulse Ox 94 L 07/23/20 10:52
== END | disposition home or self-care (01) ==
LOC: PNWHC3 10:22
PROVIDERS: ATTEND Anesthesiology
DX: M17.0 Bilateral primary osteoarthritis of knee (principal); M12.811 Other specific arthropathies, not elsewhere classified, right shoulder; I83.893 Varicose veins of bilateral lower extremities with other complications; E66.01 Morbid (severe) obesity due to excess calories
CPT/HCPCS: 99211

== ENCOUNTER 2020-08-21 08:05 | Day surgery (SDC) | payer MEDICARE ==
[2020-08-20 12:49] VITALS: BMI 36.8
[2020-08-21 08:21] VITALS: BP 173/78; PULSE 80; RESP 16; TEMP 97.1
--- NOTE | 2020-08-21 08:47 | P.PN ---
Progress Note - Text Progress Note Date: 08/21/20 This is 80 years old female with a history of right knee arthralgia and she is scheduled to have right knee steroid injection done today, preop [facility] patient reported that she had multiple steroid injection on her right knee done previously without any benefit, and she is wondering if we do something different today I explained to the patient that we can inject Hyalgan 20 mg intra-articular in the right knee and hopefully this will help her to control the pain but unfortunately, we don't have this medication available in the pharmacy and it has to be ordered by the pharmacy and for this reason, we've ordered the medication and check with the insurance if this proves to proceed with a Hyalgan injection , we will notify the patient as scheduled her for the procedure if it is approved by the insurance, the procedure for today was canceled.
== END 2020-08-21 08:50 | disposition home or self-care (01) ==
LOC: ORPAIN 08:05
PROVIDERS: ATTEND Specialist
DX: M25.561 Pain in right knee (principal); Z53.8 Procedure and treatment not carried out for other reasons

== ENCOUNTER → 2020-11-21 | Outpatient (CLI) | payer MEDICARE ==
[2020-11-21 11:26] VITALS: BP 135/82; PULSE 64; RESP 18; TEMP 97.8
--- NOTE | 2020-11-21 12:58 | P.PN ---
Subjective Progress Note Date: 11/21/20 America is an 89-[id number]-year-old female who presents today for follow-up secondary bilateral knee pain. She reports that she is having significant knee pain which limiting her daily activity. Her right knee is worse than left knee. She describes the pain as aching sensation sharp shooting pain across the knee without radiation to her feet. She reports she's had knee injections in the past without good relief. She had a history of right or extremity trauma with significant surgery to the femur. Her pain is mostly over the anterior and lateral aspects the knee with ambulation. She also has pain behind the right knee and the calf muscle. She reports that his pain is significantly debilitati ng. She has of 8 out of 10 pain with activity. She denies any shooting pain down the leg from her back. Denies any upper extremity weakness numbness or tingling. Denies any chest pain or shortness of breath. Objective - Vital Signs Vital signs: Vital Signs Temp 97.8 F 11/21/20 11:24 Pulse 64 11/21/20 11:24 Resp 18 11/21/20 11:24 BP 135/82 11/21/20 11:24 Pulse Ox 95 11/21/20 11:24 - Exam PHYSICAL EXAM: Constitutional: Awake and alert no distress Cardiovascular exam: Regular rate, no lower extremity edema, palpable pulses bilaterally Respiratory exam: No audible wheezing, no accessory muscle usage Abdominal exam: Soft nontender Muscular skeletal exam: - Cervical spine: Nontender to palpation bilaterally. Range of motion is not limited. Spurling is negative bilateral. Facet loading is negative bilaterally - Lumbar spine: Preserved lumbar lordosis. No changes in skin. Nontender palpation bilateral. Patient has full range of motion in flexion and extension as well as lateral sidebending. Straight leg raise is negative. Knee exam: Right knee is minimally tender palpation over the lateral and medial aspects. There is no tenderness over the patellar facets of the patella. There is tenderness to palpation over the posterior aspect of the right gastrocnemius muscle. Left knee also has pain with ambulation and manipulation. Grind test is positive bilaterally. There is minimal swelling noted bilaterally. She has chronic lower extremity edema both legs. Neuro exam: Normal sensation bilateral upper and lower extremities. Deep tendon reflexes are 2+ bilaterally. Psychiatric exam: Cooperative, good insight Assessment and Plan Assessment: #1 knee osteoarthritis #2 obesity #3 posttraumatic pain of the right leg Plan: At this point America has not done well with injections into the knee joint. We will schedule her for diagnostic injections of the genicular nerves on both sides. The right leg is worse than the left. We discussed the injection along with possible radiofrequency ablation. Her along with her appears to understand the procedure in detail. I have spent 31 minutes on patient care today. The time was used to review the medical records including relevant urine studies and Prescription history (MAPs), review of the available imaging, evaluation and examination of the patient, coordination of care with the medical staff and if applicable referring physicians, as well as creation of the medical record.
== END | disposition home or self-care (01) ==
LOC: PNWHC3 11:08
PROVIDERS: ATTEND Hospitalist
DX: M17.0 Bilateral primary osteoarthritis of knee (principal); G89.11 Acute pain due to trauma; E66.9 Obesity, unspecified
CPT/HCPCS: 99211

== ENCOUNTER 2020-12-06 11:12 | Day surgery (SDC) | payer MEDICARE ==
[2020-12-03 15:41] VITALS: BMI 36.6
[2020-12-06 11:45] VITALS: RESP 16; TEMP 97.9
--- NOTE | 2020-12-06 12:01 | P.PCN ---
Date of Procedure: 12/06/20 Description of Procedure: Procedure: Genicular nerve block under fluoroscopy guidance. Preoperative diagnoses: 1. Knee Osteoarthritis bilateral Postoperative diagnoses: 1. Knee Osteoarthritis bilateral Condition: Stable. Anesthesia: IV sedation with Versed 2 mg Description of the procedure: Risk and benefit from the procedure discussed with the patient and he agreed with the preceding including but not limited to risk of infection and bleeding not complete pain relief and ALLERGIC reaction to the medication patient taken to the operating room placed in supine position or standard monitors applied to the patient then after induction of anesthesia, the area prepped with chlorhexidine 3,. Right knee : Anterior Posterior view of the knee was ascertained. Then under fluoroscopy guidance 25-gauge Quincke-type spinal needle first needle advanced and placed at the superior medial epicondyle of the femur and the needle tip was in direct contact with the periosteum. A solution consisting of 9 ML's 0.5% Marcaine with 40 mg of Kenalog was drawn up. 1.5cc ml of solution injected after negative aspiration, there was no paresthesia during the injection, then another 25 gauge spinal needle advanced at the superior lateral epicondyle of the femur and needle was in direct contact with the periosteum of the lateral epicondyle then after negative aspiration for heme and there was no paresthesia during the injection total of 3 ML of solution was injected after negative aspiration, and then another needle advanced and placed at the distal medial epicondyle of the tibia and the needle tip was placed at the direct contact on the periosteum of the medial epicondyle of the tibia and then after negative aspiration for heme and there was no paresthesia during the injection 1.5 ml of solution was injected after negative aspiration patient tolerated the procedure well without any complication. Left knee: Anterior Posterior view of the knee was ascertained. Then under fluoroscopy guidance 25-gauge Quincke-type spinal needle first needle advanced and placed at the superior medial epicondyle of the femur and the needle tip was in direct contact with the periosteum. A solution consisting of 9 ML's 0.5% Marcaine with 40 mg of Kenalog was drawn up. 1.5cc ml of solution injected after negative aspiration, there was no paresthesia during the injection, then another 25 gauge spinal needle advanced at the superior lateral epicondyle of the femur and needle was in direct contact with the periosteum of the lateral epicondyle then after negative aspiration for heme and there was no paresthesia during the injection total of 3 ML of solution was injected after negative aspiration, and then another needle advanced and placed at the distal medial epicondyle of the tibia and the needle tip was placed at the direct contact on the periosteum of the medial epicondyle of the tibia and then after negative aspiration for heme and there was no paresthesia during the injection 1.5 ml of solution was injected after negative aspiration patient tolerated the procedure well without any complication Disposition: Patient will have genicular nerve block repeated in 2-4 weeks
[2020-12-06] MEDS ORDERED: MIDAZOLAM 2 MG/2 ML VIAL ONE (12:13)
[2020-12-06] MEDS ORDERED: ROPIVACAINE 5MG/ML 20ML VIAL ONE (12:13)
[2020-12-06] MEDS ORDERED: methylPREDNISolone ACETATE 40 MG/ML 1 ML VIAL ONE (12:13)
[2020-12-06] MEDS ORDERED: IV FLUID CONTINUATION 500 ML IV ONE (12:33)
[2020-12-06 12:46] VITALS: BP 138/65; PULSE 58
--- NOTE | 2020-12-06 13:00 | FL ---
EXAMINATION TYPE: FL guided pain mgmt statistic DATE OF EXAM: 12/06/2020 CLINICAL HISTORY: Bilateral knee pain. TECHNIQUE: Fluoroscopy. COMPARISON: None. FINDINGS: Fluoroscopic guidance was provided during pain relief procedure performed by Dr. Shin . A total of 10 seconds of fluoroscopic time was utilized during the procedure and 6 spot images are acquired. Images acquired shows needle localization in the bilateral knees. IMPRESSION: As Above.
== END 2020-12-06 13:06 | disposition home or self-care (01) ==
LOC: ORPAIN 11:12
PROVIDERS: ATTEND Hospitalist
DX: M17.0 Bilateral primary osteoarthritis of knee (principal); Z88.2 Allergy status to sulfonamides
CPT/HCPCS: 64454; J2250; J1030; J2795

== ENCOUNTER → 2020-12-24 | Outpatient (CLI) | payer MEDICARE ==
[2020-12-24 14:27] VITALS: BP 132/78; PULSE 65; RESP 16; TEMP 97.5
--- NOTE | 2020-12-24 14:51 | P.PAINPG ---
Subjective Progress Note Date: 12/31/20 Principal diagnosis: Bilateral knee pain Mrs. Bellamy is a 80-year-old pleasant female came to the [facility] pain management for follow-up after bilateral knee genicular nerve block. She had more than 50% pain relief for 5 days duration. Later her pain gradually started back to the baseline. She rated her pain is 7-8 out of 10 in severity. With the help of procedure she was able to perform her activities of daily living with tolerable pain levels. Activities making her pain worse. She describes her pain is aching, constant throbbing pain. Intervention procedure helped in relieving her pain. Patient refuses to go for knee replacement . Patient denied any red flag symptoms. 13 point review of symptoms negative except as mentioned in the history of present illness. Objective - Vital Signs Vital signs: Vital Signs Temp 97.5 F L 12/24/20 14:25 Pulse 65 12/24/20 14:25 Resp 16 12/24/20 14:25 BP 132/78 12/24/20 14:25 Pulse Ox 98 12/24/20 14:25 Intake & Output 12/23/20 12/24/20 12/24/20 18:59 06:59 18:59 Weight 86.636 kg - Exam General: well-developed, well-nourished, no acute distress. HEENT: Normocephalic, atraumatic. Neck: supple, trachea midline CVS: Regular rate and rhythm Pulmonary : Not in labored breathing. Neurologic: No noticeable focal neurological deficits. Psychiatric: Appropriate mood and affect. Musculoskeletal: Upper extremity : Normal strength and range of motion, and sensation grossly intact.. Lower extremity: Decreased strength and decreased range of motion secondary to pain. Sensation grossly intact Bilateral knee swelling- positive Assessment and Plan Assessment: Bilateral knee osteoarthritis Chronic pain syndrome Plan: 1. Diagnoses, prognoses, and multiple treatment options including but not limited to physical therapy, interventional therapies, adjunct medical therapies, and surgical options were discussed with the patient and all questions were answered to the patients satisfaction. 2. Treatment plan agreement: Procedure, complications and side effects discussed with the patient. 3. The patient was counseled on importance of regular exercise in controlling chronic pain as well as in terms of overall well-being. Patient counseled regarding the importance of regular exercise, and minimizing the intake of carbohydrates, and process foods which may help in decreasing the inflammation, and helps overall well-being. 4. Consultations: Continue physical therapy exercises at home 5. Investigations: MAPS- appropriate , and urine drug test- not done. 6. Diagnostic studies: None. 7. Interventional procedures: Bilateral knee genicular narrow block #2 8. Medications: None 9. Morphine milligram equivalent (MME) doses: 0 from the pain clinic. 10. Durable Medical Equipment (DME) : TENS units. 11. Disposition: Scheduled for follow-up in 4 weeks duration. I have spent 20 minutes with this patient. Including but not limited to: [id number] time, on physical examination, electronic medical record review, counseling, and documentation The QRS measure charge sheet done in separate paper note. Time with Patient: Less than 30 PQRS Measure Charge Sheet PQRS Narrative: Smoking Status Never smoker Narcotic Agreement Date Signed 07/06/19 Blood Pressure 132/78 Pain Intensity [Knee] 8 Scale Used Numeric (1 - 10) Hx Alcohol Use (MH) No Home Medications: Ambulatory Orders Cholecalciferol [Vitamin D3] 2,000 unit PO DAILY 02/22/18 L.acidoph,Paracasei, B.lactis [Probiotic] 1 cap PO DAILY 02/22/18 Levothyroxine Sodium [Synthroid] 112 mcg PO QAM 02/22/18 Losartan Potassium [Cozaar] 100 mg PO QAM 09/08/18 Methenamine Hippurate [Hiprex] 1 gm PO TID 09/08/18 Metoprolol Tartrate [Lopressor] 25 mg PO BID 09/08/18 Potassium Chloride [K-Tab ER] 10 meq PO Q2D 02/22/19 Vit C/E/Zn/Coppr/Lutein/Zeaxan [Preservision Areds 2 Softgel] 1 tab PO DAILY 02/22/19 hydroCHLOROthiazide 25 mg PO DAILY 03/21/19 Menthol [Biofreeze] 1 applic TOPICAL DAILY PRN 07/19/20 Multivit-Min/Iron/Folic/Lutein [Centrum Silver Women Tablet] 1 each PO DAILY 07/19/20 DULoxetine HCL [Cymbalta] 60 mg PO DAILY 11/19/20 traMADol HCL [Ultram] 50 mg PO TID PRN 11/19/20 Controlled Substance Measures - Controlled Substance Measures Is patient prescribed a controlled substance at discharge?: No
== END ==
LOC: PNWHC3 13:57
DX: M17.0 Bilateral primary osteoarthritis of knee (principal); G89.4 Chronic pain syndrome
CPT/HCPCS: 99211

== ENCOUNTER 2021-01-15 12:12 | Day surgery (SDC) | payer MEDICARE ==
[2021-01-10 16:10] VITALS: BMI 36.1
[2021-01-15 12:32] VITALS: RESP 16; TEMP 98
[2021-01-15] MEDS ORDERED: LACTATED RINGERS 1,000 ML IV ONE (12:35)
[2021-01-15] MEDS ORDERED: methylPREDNISolone ACETATE 40 MG/ML 1 ML VIAL ONE (12:36)
[2021-01-15] MEDS ORDERED: MIDAZOLAM 2 MG/2 ML VIAL ONE (12:36)
[2021-01-15] MEDS ORDERED: fentaNYL (PF) 50 MCG/ML 2 ML AMP ONE (12:36)
[2021-01-15] MEDS ORDERED: ROPIVACAINE 5MG/ML 20ML VIAL ONE (12:36)
[2021-01-15] MEDS ORDERED: IV FLUID CONTINUATION 650 ML IV ONE (13:05)
[2021-01-15 13:08] VITALS: BP 154/69; PULSE 61
--- NOTE | 2021-01-15 13:09 | P.PCN ---
Date of Procedure: 01/15/21 Description of Procedure: Procedure: Genicular nerve block under fluoroscopy guidance. Preoperative diagnoses: 1. Knee Osteoarthritis bilateral Postoperative diagnoses: 1. Knee Osteoarthritis bilateral Condition: Stable. Anesthesia: IV sedation with Versed 2 mg Description of the procedure: Risk and benefit from the procedure discussed with the patient and he agreed with the preceding including but not limited to risk of infection and bleeding not complete pain relief and ALLERGIC reaction to the medication patient taken to the operating room placed in supine position or standard monitors applied to the patient then after induction of anesthesia, the area prepped with chlorhexidine 3,. Right knee : Anterior Posterior view of the knee was ascertained. Then under fluoroscopy guidance 25-gauge Quincke-type spinal needle first needle advanced and placed at the superior medial epicondyle of the femur and the needle tip was in direct contact with the periosteum. A solution consisting of 9 ML's 0.5% Marcaine with 40 mg of Kenalog was drawn up. 1.5cc ml of solution injected after negative aspiration, there was no paresthesia during the injection, then another 25 gauge spinal needle advanced at the superior lateral epicondyle of the femur and needle was in direct contact with the periosteum of the lateral epicondyle then after negative aspiration for heme and there was no paresthesia during the injection total of 3 ML of solution was injected after negative aspiration, and then another needle advanced and placed at the distal medial epicondyle of the tibia and the needle tip was placed at the direct contact on the periosteum of the medial epicondyle of the tibia and then after negative aspiration for heme and there was no paresthesia during the injection 1.5 ml of solution was injected after negative aspiration patient tolerated the procedure well without any complication. Left knee: Anterior Posterior view of the knee was ascertained. Then under fluoroscopy guidance 25-gauge Quincke-type spinal needle first needle advanced and placed at the superior medial epicondyle of the femur and the needle tip was in direct contact with the periosteum. A solution consisting of 9 ML's 0.5% Marcaine with 40 mg of Kenalog was drawn up. 1.5cc ml of solution injected after negative aspiration, there was no paresthesia during the injection, then another 25 gauge spinal needle advanced at the superior lateral epicondyle of the femur and needle was in direct contact with the periosteum of the lateral epicondyle then after negative aspiration for heme and there was no paresthesia during the injection total of 3 ML of solution was injected after negative aspiration, and then another needle advanced and placed at the distal medial epicondyle of the tibia and the needle tip was placed at the direct contact on the periosteum of the medial epicondyle of the tibia and then after negative aspiration for heme and there was no paresthesia during the injection 1.5 ml of solution was injected after negative aspiration patient tolerated the procedure well without any complication Disposition: Patient will have genicular nerve RFA if she has success with this 2nd diagnostic block
--- NOTE | 2021-01-15 13:29 | FL ---
Fluoroscopy History: Knee injections BILATERAL GENICULAR INJ. 24 SEC FL TIME. 4 PICS ON SYN
== END 2021-01-15 13:40 | disposition home or self-care (01) ==
LOC: ORPAIN 12:12
PROVIDERS: ATTEND Anesthesiology
DX: M17.0 Bilateral primary osteoarthritis of knee (principal); Z88.2 Allergy status to sulfonamides
CPT/HCPCS: 64454; J2250; J1030; J3010; J2795

== ENCOUNTER → 2021-01-28 | Outpatient (CLI) | payer MEDICARE ==
[2021-01-28 14:10] VITALS: BP 122/76; PULSE 72; RESP 16; TEMP 97.5
--- NOTE | 2021-01-28 15:14 | P.PN ---
Subjective Progress Note Date: 01/28/21 This is for visit for this 80 years old female with a chronic history of severe bilateral knee pain, recently we did genicular nerves block bilaterally on both knees, patient reported that she had more than 50% improvement of her knee pain after each block, and the pain relief was for a few days, she is currently complaining of severe localized pain around the knee area bilaterally more prominent on the right side, the pain increases with any activity, she denies any fever she denies any discharge from the knee joint. Objective - Vital Signs Vital signs: Vital Signs Temp 97.5 F L 01/28/21 14:04 Pulse 72 01/28/21 14:04 Resp 16 01/28/21 14:04 BP 122/76 01/28/21 14:04 Pulse Ox 96 01/28/21 14:04 - Exam Physical Examinations : -Constitutiona : Cooperative , not in acute distress . -HEENT : nech : supple , no Lymphadenopathy , normal thyroid size . : eyes : no ptosis , no icterus, no photophobia . - neurologic : Cranial nerve II to XII intact , no focal neurological deffecit . -psychatric : alert , oriented X 3 , appropriate affect , intact judgment and insight . -Lymphatic : no Lymphadenopathy . - musculoskeltal : Flexion and extension of both associated was severe pain Decreased motor strength in both lower extremities Assessment and Plan Plan: Assessment and plan=1-bilateral knee arthralgia Patient had more than 50% improvement of, after genicular nerve block bilaterally She could benefit from RFA of the genicular nerves ( 3 peripheral nerve right side, and 3 peripheral nerve left side ) - PQRS measures = - Patient's medications are documented in the chart. -Tobacco use is negative and counseling.Given. -Patient's has not received pneumococcal vaccine. -Advanced care planning discussed, patient not eligible. -Opiate contract not signed. -Pain positive and follow-up visit/procedure is scheduled. -Patient's blood pressure measured [ 122/76 ] , and documented in the record ,and patient will follow up with the primary care. -Patient's weight was measured and body mass index [35.7 ] above the normal limits and counseling was done. and patient instructed to follow-up with the primary care physician. -Patient was not identified as an unhealthy alcohol user Time with Patient: Less than 30
== END ==
LOC: PNWHC3 13:51
PROVIDERS: ATTEND Specialist
DX: M25.562 Pain in left knee (principal); M25.561 Pain in right knee
CPT/HCPCS: 99211

== ENCOUNTER 2021-02-15 12:19 | Day surgery (SDC) | payer MEDICARE ==
[2021-02-14 10:02] VITALS: BMI 36.8
[2021-02-15 13:02] VITALS: RESP 16; TEMP 97.4
[2021-02-15] MEDS ORDERED: LACTATED RINGERS 1,000 ML IV ONE (13:10)
[2021-02-15] MEDS ORDERED: LIDOCAINE 1% (10MG/ML) FOR IV START INTRADERMA ONE (13:10)
[2021-02-15] MEDS ORDERED: ROPIVACAINE 5MG/ML 20ML VIAL ONE (13:19)
[2021-02-15] MEDS ORDERED: fentaNYL (PF) 50 MCG/ML 2 ML AMP ONE (13:19)
[2021-02-15] MEDS ORDERED: LIDOCAINE 1% INJ 10MG/ML (20 ML MDV) ONE (13:19)
[2021-02-15] MEDS ORDERED: MIDAZOLAM 2 MG/2 ML VIAL ONE (13:19)
--- NOTE | 2021-02-15 13:55 | P.PCN ---
Description of Procedure: M17.11 bilateral primary osteoarthritis of the knee Post-op diagnosis: Same Physician: Sukumar Bal MD Anesthesia: Local with 1% lidocaine and MAC with anesthesia team Pre-Procedure Review: The initial consultation report has been reviewed and there are no changes with regard to the patients medical, social history and review of systems. The patient states that the symptoms are stable and unchanged since the last visit. My findings on physical examination today are grossly consistent with those documented on the previous follow-up note, at which time todays procedure was scheduled. I will proceed today with the scheduled procedure and see the patient back for follow-up. The patient states understanding of the plan, and is in agreement. Indication: To ablate the nerves involved in the transmission of pain arising from degenerative joint disease in the knee. The patient has undergone diagnostic nerve block of the branches of the genicular nerve, which produced satisfactory improvement of the usual pain for the expected duration of time. Based on this, the patient is an ideal candidate for radiofrequency ablation of the same branches, which should provide significant long-term relief. Description: The history and physical examination were reviewed to ensure accuracy, and the details of the procedure were reviewed with the patient who understands all of the risks and benefits involved. All questions were answered, and the patient is aware of all alternative therapeutic options. An informed consent was obtained, and the patient was directed to the procedure room. A time-out with two active identifiers of the patient, the procedure, and the site was performed. The patient was positioned supine on the fluoroscopy table. All pressure points were padded and checked routinely. The patients level of consciousness was monitored throughout. The knee was widely sterilized using a Betadine solution and was draped in a sterile manner. In the anteroposterior fluoroscopic view, the right SUPERIOR MEDIAL GENICULAR NERVE was located at the midpoint of the femur at the superior medial epicondyle. The skin overlying this was anesthetized with 1% lidocaine. The radiofrequency needle with a 10mm curved active tip was advanced in a target fashion slowly and carefully to the epicondyle. Placement was confirmed with multiple fluoroscopic views. Aspiration was negative for blood or other substances. Local anesthesia was accomplished with 2mL of 1% lidocaine. The stylet was removed, and the radiofrequency probe was inserted through the cannula. Non-pulsed radiofrequency ablation was performed at a temperature of 80 degrees centigrade for sixty seconds. The needle was then withdrawn. In the anteroposterior fluoroscopic view, the right SUPERIOR LATERAL GENICULAR NERVE was located at the midpoint of the femur at the superior lateral epicondyle. The skin overlying this was anesthetized with 1% lidocaine. The radiofrequency needle with a 10mm curved active tip was advanced in a target fashion slowly and carefully to the epicondyle. Placement was confirmed with multiple fluoroscopic views. Aspiration was negative for blood or other substances. Local anesthesia was accomplished with 2mL of 1% lidocaine. The stylet was removed, and the radiofrequency probe was inserted through the cannula. Non-pulsed radiofrequency ablation was performed at a temperature of 80 degrees centigrade for sixty seconds. The needle was then withdrawn. In the anteroposterior fluoroscopic view, the right INFERIOR MEDIAL GENICULAR NERVE was located at the midpoint of the tibia at the superior medial epicondyle. The skin overlying this was anesthetized with 1% lidocaine. The radiofrequency needle with a 10mm curved active tip was advanced in a target fashion slowly and carefully to the epicondyle. Placement was confirmed with multiple fluoroscopic views. Aspiration was negative for blood or other substances. Local anesthesia was accomplished with 2mL of 1% lidocaine. The stylet was removed, and the radiofrequency probe was inserted through the cannula. Non-pulsed radiofrequency ablation was performed at a temperature of 80 degrees centigrade for sixty seconds. The needle was then withdrawn. The procedure was then repeated on the left side. The procedure was performed uneventfully and was well-tolerated by the patient. The patient was transferred to an observation room and recovered without incident. No adverse events were noted, and the patient was discharged home in stable condition. All potential side effects and adverse events have been discussed with the patient. The patient has been instructed to call my clinic at the first sign of an adverse event, or with any other concerning symptoms. A follow-up appointment has been made.
[2021-02-15] MEDS ORDERED: IV FLUID CONTINUATION 1,000 ML IV ONE (14:00)
[2021-02-15 14:38] VITALS: BP 157/67; PULSE 64
--- NOTE | 2021-02-15 17:39 | FL ---
EXAMINATION TYPE: FL guided pain mgmt statistic DATE OF EXAM: 02/15/2021 CLINICAL HISTORY: RF genicular nerve TECHNIQUE: Fluoroscopy. COMPARISON: None. FINDINGS: Fluoroscopic guidance was provided during procedure for performing physician. A total of 24 seconds of fluoroscopic time was utilized during the procedure and 6 spot images acquired. IMPRESSION: As Above.
== END 2021-02-15 14:48 | disposition home or self-care (01) ==
LOC: ORPAIN 12:19
PROVIDERS: ATTEND Anesthesiology
DX: M17.11 Unilateral primary osteoarthritis, right knee (principal); I10 Essential (primary) hypertension; E78.5 Hyperlipidemia, unspecified; E07.9 Disorder of thyroid, unspecified; F32.9 Major depressive disorder, single episode, unspecified; K21.9 Gastro-esophageal reflux disease without esophagitis; Z79.899 Other long term (current) drug therapy; Z79.890 Hormone replacement therapy; Z85.828 Personal history of other malignant neoplasm of skin; Z86.718 Personal history of other venous thrombosis and embolism; Z87.440 Personal history of urinary (tract) infections; Z88.2 Allergy status to sulfonamides
CPT/HCPCS: 64624; J2250; J2001; J3010; J2795

== ENCOUNTER → 2021-03-13 | Outpatient (CLI) | payer MEDICARE ==
[2021-03-13 13:10] VITALS: BP 127/67; PULSE 68; RESP 18; TEMP 98.3
--- NOTE | 2021-03-13 13:34 | P.PN ---
Subjective Progress Note Date: 03/13/21 This is a 81-year-old lady with history of severe bilateral knee pain with weightbearing activities. The patient failed to respond to physical therapy previously and failed to respond to multiple injections in her knees including steroid injection to the knee joint bilaterally and also including genicular nerve block then RFA. The patient feels numbness on the lateral aspect of her right leg beneath the knee which started after the genicular nerve RFA The patient is going to see her orthopedic surgeon after she gets stress test done. Patient denies new-onset weakness, bowel/bladder incontinence, or any other signs or symptoms of cauda equina syndrome. There are no signs of acute intoxication, and no indications of medication diversion or overuse. In addition to above, 13-point review of systems is also negative for chest pain, shortness of breath, changes in vision, changes in hearing, new onset weakness, abdominal pain, diarrhea, extreme fatigue, malaise, fever, skin changes, homicidal or suicidal ideation, or bowel or bladder incontinence. Vital Signs: Reviewed in EMR Gen: AAOx3, NAD HEENT: PERRLA,hearing grossly normal Pulm: resp unlabored Neck: supple, trachea midline Neuro exam of the lower extremities: Straight leg raising test: Ashish's test: Range of motion of the lumbar spine: Facet loading test: Tenderness in the paravertebral musculature: Neuro: CN II-XII grossly intact, Imaging: Reviewed in EMR/chart Assessment: Bilateral knee osteoarthritis Lumbar stenosis Plan: 1. Explanation: Opioid and psychological risk scores were reviewed. Diagnoses, prognoses, and multiple treatment options including but not limited to physical therapy, interventional therapies, adjuvant medical therapies, narcotic medication therapies, and surgery were discussed with the patient and all questions were answered to the patient's satisfaction. 2. Opioid agreement: Signed with the patient and the patient is warned not to use opioids while driving or before driving and not to combine opioids with benzodiazepines or alcohol. 3. Counseling: The patient was counseled extensively on SMOKING CESSATION, BODY MASS INDEX, EXERCISE. Specifically, the patient was instructed regarding the importance of smoking cessation, obesity, and exercise in the context of both chronic pain and overall health. 4. Procedures: The patient failed to respond to multiple procedures and I think she is a candidate for knee replacement 5. Consultations: None 6. Investigations: None 7. Medications: None 8. Disposition: Return to clinic as needed for her back pain which is under control right now 9. Maps were reviewed and were appropriate. Objective - Vital Signs Vital signs: Vital Signs Temp 98.3 F 03/13/21 13:06 Pulse 68 03/13/21 13:06 Resp 18 03/13/21 13:06 BP 127/67 03/13/21 13:06 Pulse Ox 97 03/13/21 13:06
== END | disposition home or self-care (01) ==
LOC: PNWHC3 12:56
PROVIDERS: ATTEND Anesthesiology
DX: M48.061 Spinal stenosis, lumbar region without neurogenic claudication (principal); M17.0 Bilateral primary osteoarthritis of knee
CPT/HCPCS: 99211

== ENCOUNTER 2021-03-15 10:41 | Day surgery (SDC) | payer MEDICARE ==
[2021-03-14 09:27] VITALS: BMI 36.8
[2021-03-15 11:31] VITALS: RESP 16; TEMP 98.6
[2021-03-15] MEDS ORDERED: LIDOCAINE 1% (10MG/ML) FOR IV START INTRADERMA ONE (11:44)
[2021-03-15] MEDS ORDERED: LIDOCAINE 1% INJ 10MG/ML (20 ML MDV) ONE (12:09)
[2021-03-15] MEDS ORDERED: PROPOFOL 10 MG/ML 20 ML VIAL IV ONE (12:09)
[2021-03-15] MEDS ORDERED: GLYCOPYRROLATE 0.2 MG/ML 2 ML VIAL ONE (12:09)
--- NOTE | 2021-03-15 12:35 | P.PCN ---
Date of Procedure: 03/15/21 Procedure(s) Performed: BRIEF HISTORY: Patient is a 81-year-old pleasant white female scheduled for an elective colonoscopy as a part of evaluation of change in bowel habits. Her last colonoscopy was 10 years ago. PROCEDURE PERFORMED: Colonoscopy. PREOPERATIVE DIAGNOSIS: Change in bowel habits. IV sedation per Anesthesia. PROCEDURE: After informed consent was obtained, the patient, was brought into the endoscopy unit. IV sedation was administered by Anesthesia under continuous monitoring. Digital rectal examination was normal. Initially the Olympus CF-160 flexible video colonoscope was then inserted in the rectum, gradually advanced into the sigmoid colon and could not be advanced any further. At this time. The colonoscope was introduced into the rectum and gradually advanced into the cecum without any difficulty. Careful examination was performed as the scope was gradually being withdrawn. Ileocecal valve and the appendiceal orifice were visualized and appeared normal. Prep was excellent. Mucosa of the cecum, ascending colon, transverse colon, descending colon, sigmoid colon, and rectum appeared normal. Moderate sigmoid diverticulosis. Retroflexion was performed in the rectum and small internal hemorrhoids were seen. The patient tolerated the procedure well. IMPRESSION: Normal-appearing colon from rectum to cecum with no evidence of colorectal neoplasia . Moderate sigmoidal reticulosis Grade 2 internal hemorrhoids RECOMMENDATIONS: Findings of this examination were discussed with the patient as well as a family. She was advised to be on a high-fiber diet and take fiber supplements a regular basis. She will continue with MiraLAX as needed for the chronic constipation..
[2021-03-15 13:12] VITALS: BP 134/72; PULSE 82
== END 2021-03-15 13:20 | disposition home or self-care (01) ==
LOC: ORWHC2ENDO 10:41
PROVIDERS: ATTEND Internal Medicine Gastroenterology
DX: R19.4 Change in bowel habit (principal); K57.90 Diverticulosis of intestine, part unspecified, without perforation or abscess without bleeding; K64.8 Other hemorrhoids; E78.5 Hyperlipidemia, unspecified; I10 Essential (primary) hypertension; Z79.899 Other long term (current) drug therapy; Z88.2 Allergy status to sulfonamides
CPT/HCPCS: 45378; J2001; J2704

== ENCOUNTER → 2021-05-06 | Outpatient (CLI) | payer MEDICARE ==
--- NOTE | 2021-05-06 13:09 | P.PN ---
Subjective Progress Note Date: 05/06/21 This is an 81-year-old morbidly obese lady with history of bilateral knee pain due to osteoarthritis and lower back pain with radiation to the lower extremities down to the ankles bilaterally with numbness and tingling in no specific radicular distribution. The patient is scheduled to have her left knee joint replaced in June. The pain gets worse at night as she states. It also gets worse when she lies on her back. Patient denies new-onset weakness, bowel/bladder incontinence, or any other signs or symptoms of cauda equina syndrome. There are no signs of acute intoxication, and no indications of medication diversion or overuse. In addition to above, 13-point review of systems is also negative for chest pain, shortness of breath, changes in vision, changes in hearing, new onset weakness, abdominal pain, diarrhea, extreme fatigue, malaise, fever, skin ch anges, homicidal or suicidal ideation, or bowel or bladder incontinence. Vital Signs: Reviewed in EMR Gen: AAOx3, NAD HEENT: PERRLA,hearing grossly normal Pulm: resp unlabored Neck: supple, trachea midline Neuro exam of the lower extremities: Normal ankle flexion and extension strength decreased muscle strength for knee flexion and extension to 4 out of 5 bilaterally and normal hip flexion adduction and abduction. Straight leg raising test: Negative bilaterally Ashish's test: Range of motion of the lumbar spine: Facet loading test: Negative Tenderness in the paravertebral musculature: Positive on the lumbar area bilaterally Neuro: CN II-XII grossly intact, Imaging: Reviewed in EMR/chart Assessment: Bilateral knee joint osteoarthritis Lumbar stenosis and lumbar radiculopathy Morbid obesity Plan: 1. Explanation: Opioid and psychological risk scores were reviewed. Diagnoses, prognoses, and multiple treatment options including but not limited to physical therapy, interventional therapies, adjuvant medical therapies, narcotic medication therapies, and surgery were discussed with the patient and all questions were answered to the patient's satisfaction. 2. Opioid agreement: Signed with the patient and the patient is warned not to use opioids while driving or before driving and not to combine opioids with benzodiazepines or alcohol. 3. Counseling: The patient was counseled extensively on SMOKING CESSATION, BODY MASS INDEX, EXERCISE. Specifically, the patient was instructed regarding the importance of smoking cessation, obesity, and exercise in the context of both chronic pain and overall health. 4. Procedures: We'll plan on doing lumbar interlaminar epidural steroid injection at the L4 5 level under fluoroscopic guidance for 1 time only. Patient is getting surgery on her knee in early June. 5. Consultations: None 6. Investigations: None 7. Medications: None prescribed today 8. Disposition: Into the above-mentioned procedure as soon as possible 9. Maps were reviewed and were appropriate.
[2021-05-06 13:23] VITALS: BP 115/58; PULSE 70; RESP 18; TEMP 97.5
== END | disposition home or self-care (01) ==
LOC: PNWHC3 12:45
PROVIDERS: ATTEND Anesthesiology
DX: M48.061 Spinal stenosis, lumbar region without neurogenic claudication (principal); M54.16 Radiculopathy, lumbar region; M17.0 Bilateral primary osteoarthritis of knee; E66.01 Morbid (severe) obesity due to excess calories
CPT/HCPCS: 99211

== ENCOUNTER 2021-06-04 10:50 | Day surgery (SDC) | payer MEDICARE ==
[2021-05-30 14:41] VITALS: BMI 37.4
[2021-06-04 11:24] VITALS: RESP 16; TEMP 98.3
[2021-06-04] MEDS ORDERED: LIDOCAINE 1% (10MG/ML) FOR IV START INTRADERMA ONE (11:25)
[2021-06-04] MEDS ORDERED: fentaNYL (PF) 50 MCG/ML 2 ML AMP ONE (11:35)
[2021-06-04] MEDS ORDERED: TRIAMCINOLONE ACETONIDE 40 MG/ML 1 ML VIAL ONE (11:35)
[2021-06-04] MEDS ORDERED: IOPAMIDOL M200 10 ML VIAL ONE (11:35)
[2021-06-04] MEDS ORDERED: ROPIVACAINE 5MG/ML 20ML VIAL ONE (11:35)
[2021-06-04] MEDS ORDERED: MIDAZOLAM 2 MG/2 ML VIAL ONE (11:35)
--- NOTE | 2021-06-04 11:50 | P.PCN ---
Date of Procedure: 06/04/21 Surgeon: Britt Villafuerte Pathology: none sent Condition: stable Disposition: PACU Description of Procedure: PREOPERATIVE DIAGNOSIS: 1-Lumbar radiculopathy 2- Lumber Degenerative Disc Diseases. 3-lumbar stenosis POSTOPERATIVE DIAGNOSIS: 1-Lumbar radiculopathy. 2-Lumbar Degenerative Disc Diseases 3-lumbar stenosis PROCEDURE 1. Lumbar epidural steroid injection under fluoroscopic guidance at the L5-S1 level in the left paramedian approach. 2. Lumbar epidurogram. ANESTHESIA: Local with 1% lidocaine; and IV moderate conscious sedation with Versed and fentanyl EBL: Minimal PROCEDURE INDICATION: The patient with low back pain and radiculitis symptoms unresponsive to conservative treatment. Fluoroscopy was used to optimize visualization of the needle placement and to maximize safety. PROCEDURE DESCRIPTION / TECHNIQUE: The patient was seen and identified in the preoperative area. Risks, benefits, complications including but not limited to infections ,bleeding ,allergic reaction to the medications ,nerve damage and not complete pain relief , and alternatives were discussed with the patient. The patient agreed to proceed with the procedure and signed the consent. IV was started, and vital signs were stable. Patient was taken to the OR and time out was completed. The patient was placed in the prone position on procedure table and a pillow was placed under the abdomen to reduce lumbar lordosis. The lumbosacral area was prepped and draped in the usual sterile fashion with ChloraPrep.Patient was closely monitored during the procedure. Conscious sedation was used during the procedure to decrease patients anxiety. Vital signs were monitered during the entire procedure. Using anterior-posterior fluoroscopy, the L5-S1 interlaminar space was identified and the skin over this site was marked and then infiltrated with 1% lidocaine subcutaneously. Subsequently, a 20-gauge Tuohy epidural needle was inserted and advanced toward the epidural space using the Loss of resistance to air technique and guided by AP and lateral fluoroscopy. The correct needle position in the epidural space was verified with the injection of 1 mL of the water soluble contrast dye Omnipaque 180 contrast and observing an excellent epidurogram with the epidural spread of the dye, after negative aspiration for blood and CSF and in the absence of paresthesias. Again after negative aspirati on, a 7 ml mixture containing 40 mg of Kenalog and 4 ml of preservative free Normal Saline, and 2 ml of preservative free ropivacaine 0.5% solution was injected and a washout of epidurogram was seen. Needle was withdrawn intact, skin was cleansed, and bandages were applied. patient tolerated procedure well and was transferred to PACU in stable condition.A copy of the needle placement picture was saved to the fluoroscopy machine. COMPLICATIONS: None DISPOSITION / PLANS: The patient was placed in a supine position and transferred to the recovery area in a stable condition for observation. There was no evidence of lower extremity motor or sensory deficit after the procedure. Patient was discharged from the recovery room after meeting discharge criteria. Home discharge instructions were given to the patient by the staff. The patient was reexamined prior to discharge. The patient will schedule a follow up in the clinic in 2-4 weeks.
[2021-06-04] MEDS ORDERED: IV FLUID CONTINUATION 1,000 ML IV ONE (11:57)
[2021-06-04 12:14] VITALS: BP 122/72; PULSE 67
--- NOTE | 2021-06-04 12:24 | FL ---
Fluoroscopy History: [facility] WITH [facility] dr. dominguez fl time of 8 secs
== END 2021-06-04 12:44 | disposition home or self-care (01) ==
LOC: ORPAIN 10:50
PROVIDERS: ATTEND Anesthesiology
DX: M51.16 Intervertebral disc disorders with radiculopathy, lumbar region (principal); M48.061 Spinal stenosis, lumbar region without neurogenic claudication; I10 Essential (primary) hypertension; Z88.5 Allergy status to narcotic agent; Z90.710 Acquired absence of both cervix and uterus
CPT/HCPCS: 62323; J2250; J3301; J3010; Q9966; J2795; 99152

== ENCOUNTER 2021-06-25 10:43 | Emergency (ER) | payer MEDICARE ==
[2021-06-25 10:57] VITALS: BP 149/72; PULSE 83; RESP 20; TEMP 98
[2021-06-25] MEDS ORDERED: PANTOPRAZOLE 40 MG/10 ML VIAL IVP STA (11:41)
[2021-06-25] MEDS ORDERED: SODIUM CHLORIDE 0.9% 500 ML 500 ML IV STA ×2 (11:41→13:32)
[2021-06-25] MEDS ORDERED: ONDANSETRON 4 MG/2 ML VIAL IVP STA (11:41)
--- NOTE | 2021-06-25 12:01 | ED ---
Nausea/Vomiting/Diarrhea HPI - General Chief complaint: Nausea/Vomiting/Diarrhea Stated complaint: Nausea/Vomiting Time Seen by Provider: 06/25/21 11:07 Source: patient Mode of arrival: ambulatory Limitations: no limitations - History of Present Illness Initial comments: Patient is an 81-year-old female with history of hypertension, presenting to the emergency Department with complaints of nausea and vomiting for the past few days. Patient is 12 days postop right TKA, done at [facility]. She states her knee pain is minimal and she has been recovering well from the surgery. She was dealing with a few days of constipation regarding the pain medicine that she was on however took a stool softener a few days ago and has been having regular movements again. She has been having epigastric discomfort and nausea feeling over the past 2 days. Today she had a few episodes of vomiting and the vomit was dark in color, dark brown blackish in color. She also had some dark stools a few days ago. She has no history of GI bleeds. Had a normal colonoscopy earlier this year. She is currently taking aspirin postsurgery. They want her to stay on it for 6 weeks. She denies any chest pain or shortness of breath, no cough. She denies any fevers or chills. She states her appetite has been well over the past week. She denies any dysuria. She is no further complaints at this time. Upon arrival to the ER, her vital signs are stable. - Related Data Home Medications Medication Instructions Recorded Confirmed Levothyroxine Sodium [Synthroid] 112 mcg PO QAM 02/22/18 06/25/21 Methenamine Hippurate [Hiprex] 1 gm PO QID 09/08/18 06/25/21 Metoprolol Tartrate [Lopressor] 25 mg PO BID 09/08/18 06/25/21 Vit C/E/Zn/Coppr/Lutein/Zeaxan 1 tab PO DAILY 02/22/19 06/25/21 [Preservision Areds 2 Softgel] hydroCHLOROthiazide 25 mg PO DAILY 03/21/19 06/25/21 Multivit-Min/Iron/Folic/Lutein 1 tab PO DAILY 07/19/20 06/25/21 [Centrum Silver Women Tablet] DULoxetine HCL [Cymbalta] 60 mg PO DAILY 11/19/20 06/25/21 Pravastatin Sodium [Pravachol] 20 mg PO HS 04/01/21 09/14/21 Trimethoprim 100 mg PO DAILY 01/23/21 06/25/21 Acetaminophen-Codeine 300-30mg 1 - 2 tab PO Q6H PRN 06/25/21 06/25/21 [Tylenol w/codeine #3] Aspirin EC [Ecotrin Low Dose] 81 mg PO BID 06/25/21 06/25/21 Losartan Potassium [Cozaar] 100 mg PO DAILY 06/25/21 06/25/21 Psyllium Husk [Metamucil] 0.4 gm PO DAILY PRN 06/25/21 06/25/21 Previous Rx's Medication Instructions Recorded Nitrofurantoin Monohyd/M-Cryst 100 mg PO Q12HR 5 Days #10 cap 06/25/21 [Macrobid] Ondansetron Odt [Zofran Odt] 4 mg PO Q8HR PRN #10 tab 06/25/21 Pantoprazole [Protonix] 40 mg PO DAILY 14 Days #14 tab 06/25/21 Allergies Allergy/AdvReac Type Severity Reaction Status Date / Time Sulfa (Sulfonamide Allergy Rash/Hives Verified 06/25/21 11:51 Antibiotics) Review of Systems ROS Statement: Those systems with pertinent positive or pertinent negative responses have been documented in the HPI. ROS Other: All systems not noted in ROS Statement are negative. Past Medical History Past Medical History: Cancer, Deep Vein Thrombosis (DVT), GERD/Reflux, Hyperlipidemia, Hypertension, Musculoskeletal Disorder, Osteoarthritis (OA), Thyroid Disorder Additional Past Medical History / Comment(s): Low back, BILATERAL KNEE AND RIGHT SHOULDER PAIN. HX DVT 2008. Insomnia, chronic UTI's, varicose veins, constipation, hx "ischemic colitis" 2010, hx skin cancer, SPINAL STENOSIS, NT RT LEG/FOOT. History of Any Multi-Drug Resistant Organisms: None Reported Past Surgical History: Bladder Surgery, Hysterectomy, Orthopedic Surgery Additional Past Surgical History / Comment(s): Parathyroidectomy, Bladder suspension, smita and screws right femur. Cortisone injection, pain clinic procedures. Past Anesthesia/Blood Transfusion Reactions: No Reported Reaction Past Psychological History: Depression Smoking Status: Never smoker Past Alcohol Use History: None Reported Past Drug Use History: None Reported - Past Family History Father Family Medical History: Cancer Additional Family Medical History / Comment(s): Lung Cancer. Mother Family Medical History: Cancer Additional Family Medical History / Comment(s): Breast Cancer. General Exam - General Exam Comments Initial Comments: GENERAL: Patient is well-developed and well-nourished. Patient is nontoxic and in no acute distress. HEAD: Atraumatic, normocephalic. EYES: Pupils equal round and reactive to light, extraocular movements intact, sclera anicteric, conjunctiva are normal. Eyelids were unremarkable. ENT: TMs normal, nares patent, oropharynx clear without exudates. Moist mucous membranes. NECK: Normal range of motion, supple without lymphadenopathy or JVD. LUNGS: Unlabored respirations. Breath sounds clear to auscultation bilaterally and equal. No wheezes rales or rhonchi. HEART: Regular rate and rhythm without murmurs, rubs or gallops. ABDOMEN: Soft, very mild epigastric discomfort on palpation, no other areas of abdominal pain,, normoactive bowel sounds. No guarding, no rebound. No masses appreciated. : Deferred MUSCULOSKELETAL: Normal extremities with adequate strength and normal range of motion, no pitting or edema. No clubbing or cyanosis. NEUROLOGICAL: Patient is alert and oriented x 3. Motor and sensory are also intact. Cranial nerves II through XII grossly intact. Symmetrical smile. Normal speech, normal gait. PSYCH: Normal mood, normal affect. SKIN: Warm, Dry, normal turgor, no rashes or lesions noted. Limitations: no limitations Course Vital Signs 06/25/21 10:54 Temperature 98 F Pulse Rate 83 Respiratory 20 Rate Blood Pressure 149/72 O2 Sat by Pulse 97 Oximetry Medical Decision Making - Medical Decision Making Patient is an 81-year-old female here for nausea and vomiting and dark colored vomit today. She is 12 days postop right TKA, performed at [facility]. Her knee pain is well controlled. She is having one week of low appetite, nausea and vomiting since yesterday. Her vomit was dark colored in nature today. She has been on aspirin since her surgery. No history of GI bleeds, had normal colonoscopy earlier this year. Some minimal epigastric pain on palpation but no other areas of pain. Her vitals are stable today. Patient's labs show normal white count, stable hemoglobin, electrolytes are all within normal limits, BUN is at 20, lactic acid is normal, troponin is normal. Stool occult blood is negative, urine shows positive nitrates, occasional bacteria and WBCs. Urine culture is pending. Received 1 L of fluids, Zofran and Protonix. She is resting comfortably, she did eat some crackers. I did give her 1 g of Rocephin here in the ER. She has a history of frequent UTIs, been many months since her last one. She is requesting to start her on Macrobid as her antibiotic. I will give her Zofran for any additional nausea and Protonix for 1-2 weeks. I did recommend stopping the aspirin and other anti-inflammatories at this time. She is agreeable to this. Return parameters were discussed with her and she verbalized understanding. Case discussed with Dr. Salcedo. - Lab Data Result diagrams: 06/25/21 11:44 06/25/21 11:44 Lab Results 06/25/21 06/25/21 06/25/21 Range/Units 11:44 11:44 11:44 WBC 9.7 (3.8-10.6) k/uL RBC 4.09 (3.80-5.40) m/uL Hgb 13.1 (11.4-16.0) gm/dL Hct 38.2 (34.0-46.0) % MCV 93.6 (80.0-100.0) fL MCH 32.1 (25.0-35.0) pg MCHC 34.3 (31.0-37.0) g/dL RDW 13.6 (11.5-15.5) % Plt Count 320 (150-450) k/uL MPV 7.2 Neutrophils % 72 % Lymphocytes % 15 % Monocytes % 7 % Eosinophils % 3 % Basophils % 1 % Neutrophils # 7.1 (1.3-7.7) k/uL Lymphocytes # 1.4 (1.0-4.8) k/uL Monocytes # 0.7 (0-1.0) k/uL Eosinophils # 0.3 (0-0.7) k/uL Basophils # 0.1 (0-0.2) k/uL PT 10.0 (9.0-12.0) sec INR 0.9 (<1.2) APTT 23.5 (22.0-30.0) sec Sodium 138 (137-145) mmol/L Potassium 4.1 (3.5-5.1) mmol/L Chloride 101 (98-107) mmol/L Carbon Dioxide 28 (22-30) mmol/L Anion Gap 9 mmol/L BUN 20 H (7-17) mg/dL Creatinine 0.89 (0.52-1.04) mg/dL Est GFR (CKD-EPI)AfAm 70 (>60 ml/min/1.73 sqM) Est GFR (CKD-EPI)NonAf 61 (>60 ml/min/1.73 sqM) Glucose 106 H (74-99) mg/dL Plasma Lactic Acid Iftikhar (0.7-2.0) mmol/L Calcium 9.9 (8.4-10.2) mg/dL Total Bilirubin 0.7 (0.2-1.3) mg/dL AST 21 (14-36) U/L ALT 12 (4-34) U/L Alkaline Phosphatase 86 (38-126) U/L Troponin I (0.000-0.034) ng/mL Total Protein 6.6 (6.3-8.2) g/dL Albumin 3.6 (3.5-5.0) g/dL Lipase 78 (23-300) U/L Urine Color Urine Appearance (Clear) Urine pH (5.0-8.0) Ur Specific [place] (1.001-1.035) Urine Protein (Negative) Urine Glucose (UA) (Negative) Urine Ketones (Negative) Urine Blood (Negative) Urine Nitrite (Negative) Urine Bilirubin (Negative) Urine Urobilinogen (<2.0) mg/dL Ur Leukocyte Esterase (Negative) Urine RBC (0-5) /hpf Urine WBC (0-5) /hpf Ur Squamous Epith Cells (0-4) /hpf Urine Bacteria (None) /hpf Urine Mucus (None) /hpf Stool Occult Blood (Negative) Blood Type Blood Type Recheck Bld Type Recheck Status Antibody Screen Spec Expiration Date 06/25/21 06/25/21 06/25/21 Range/Units 11:44 11:44 11:44 WBC (3.8-10.6) k/uL RBC (3.80-5.40) m/uL Hgb (11.4-16.0) gm/dL Hct (34.0-46.0) % MCV (80.0-100.0) fL MCH (25.0-35.0) pg MCHC (31.0-37.0) g/dL RDW (11.5-15.5) % Plt Count (150-450) k/uL MPV Neutrophils % % Lymphocytes % % Monocytes % % Eosinophils % % Basophils % % Neutrophils # (1.3-7.7) k/uL Lymphocytes # (1.0-4.8) k/uL Monocytes # (0-1.0) k/uL Eosinophils # (0-0.7) k/uL Basophils # (0-0.2) k/uL PT (9.0-12.0) sec INR (<1.2) APTT (22.0-30.0) sec Sodium (137-145) mmol/L Potassium (3.5-5.1) mmol/L Chloride (98-107) mmol/L Carbon Dioxide (22-30) mmol/L Anion Gap mmol/L BUN (7-17) mg/dL Creatinine (0.52-1.04) mg/dL Est GFR (CKD-EPI)AfAm (>60 ml/min/1.73 sqM) Est GFR (CKD-EPI)NonAf (>60 ml/min/1.73 sqM) Glucose (74-99) mg/dL Plasma Lactic Acid Iftikhar 1.4 (0.7-2.0) mmol/L Calcium (8.4-10.2) mg/dL Total Bilirubin (0.2-1.3) mg/dL AST (14-36) U/L ALT (4-34) U/L Alkaline Phosphatase (38-126) U/L Troponin I <0.012 (0.000-0.034) ng/mL Total Protein (6.3-8.2) g/dL Albumin (3.5-5.0) g/dL Lipase (23-300) U/L Urine Color Urine Appearance (Clear) Urine pH (5.0-8.0) Ur Specific [place] (1.001-1.035) Urine Protein (Negative) Urine Glucose (UA) (Negative) Urine Ketones (Negative) Urine Blood (Negative) Urine Nitrite (Negative) Urine Bilirubin (Negative) Urine Urobilinogen (<2.0) mg/dL Ur Leukocyte Esterase (Negative) Urine RBC (0-5) /hpf Urine WBC (0-5) /hpf Ur Squamous Epith Cells (0-4) /hpf Urine Bacteria (None) /hpf Urine Mucus (None) /hpf Stool Occult Blood Negative (Negative) Blood Type Blood Type Recheck Bld Type Recheck Status Antibody Screen Spec Expiration Date 06/25/21 06/25/21 Range/Units 12:06 12:06 WBC (3.8-10.6) k/uL RBC (3.80-5.40) m/uL Hgb (11.4-16.0) gm/dL Hct (34.0-46.0) % MCV (80.0-100.0) fL MCH (25.0-35.0) pg MCHC (31.0-37.0) g/dL RDW (11.5-15.5) % Plt Count (150-450) k/uL MPV Neutrophils % % Lymphocytes % % Monocytes % % Eosinophils % % Basophils % % Neutrophils # (1.3-7.7) k/uL Lymphocytes # (1.0-4.8) k/uL Monocytes # (0-1.0) k/uL Eosinophils # (0-0.7) k/uL Basophils # (0-0.2) k/uL PT (9.0-12.0) sec INR (<1.2) APTT (22.0-30.0) sec Sodium (137-145) mmol/L Potassium (3.5-5.1) mmol/L Chloride (98-107) mmol/L Carbon Dioxide (22-30) mmol/L Anion Gap mmol/L BUN (7-17) mg/dL Creatinine (0.52-1.04) mg/dL Est GFR (CKD-EPI)AfAm (>60 ml/min/1.73 sqM) Est GFR (CKD-EPI)NonAf (>60 ml/min/1.73 sqM) Glucose (74-99) mg/dL Plasma Lactic Acid Iftikhar (0.7-2.0) mmol/L Calcium (8.4-10.2) mg/dL Total Bilirubin (0.2-1.3) mg/dL AST (14-36) U/L ALT (4-34) U/L Alkaline Phosphatase (38-126) U/L Troponin I (0.000-0.034) ng/mL Total Protein (6.3-8.2) g/dL Albumin (3.5-5.0) g/dL Lipase (23-300) U/L Urine Color Yellow Urine Appearance Cloudy H (Clear) Urine pH 7.5 (5.0-8.0) Ur Specific [place] 1.012 (1.001-1.035) Urine Protein Negative (Negative) Urine Glucose (UA) Negative (Negative) Urine Ketones Negative (Negative) Urine Blood Negative (Negative) Urine Nitrite Positive H (Negative) Urine Bilirubin Negative (Negative) Urine Urobilinogen <2.0 (<2.0) mg/dL Ur Leukocyte Esterase Large H (Negative) Urine RBC 4 (0-5) /hpf Urine WBC 42 H (0-5) /hpf Ur Squamous Epith Cells <1 (0-4) /hpf Urine Bacteria Occasional H (None) /hpf Urine Mucus Rare H (None) /hpf Stool Occult Blood (Negative) Blood Type O Negative Blood Type Recheck O Neg Bld Type Recheck Status No Antibody Screen NEGATIVE Spec Expiration Date 06/28/20212305 Disposition Clinical Impression: Nausea & vomiting, UTI (urinary tract infection), Epigastric pain Disposition: HOME SELF-CARE Condition: Stable Instructions (If sedation given, give patient instructions): Urinary Tract Infection in Women (DC) Additional Instructions: Please return to the Emergency Department if symptoms worsen or any other concerns. Take antibiotic as prescribed for UTI. Culture is pending at this time. Recommend taking Protonix for 1-2 weeks to help improve belly pain. Please stop aspirin and other anti-inflammatories at this time. May take Tylenol for any discomfort. Prescriptions: Nitrofurantoin Monohyd/M-Cryst [Macrobid] 100 mg PO Q12HR 5 Days #10 cap Pantoprazole [Protonix] 40 mg PO DAILY 14 Days #14 tab Ondansetron Odt [Zofran Odt] 4 mg PO Q8HR PRN #10 tab PRN Reason: Nausea Is patient prescribed a controlled substance at d/c from ED?: No Referrals: John Mirza [Primary Care Provider] - 1-2 days Time of Disposition: 14:30
[2021-06-25 12:30] LABS: Basophils # (A) 0.1 k/uL (0-0.2); Basophils % (A) 1 %; Eosinophils # (A) 0.3 k/uL (0-0.7); Eosinophils % (A) 3 %; HCT 38.2 % (34.0-46.0); HGB 13.1 gm/dL (11.4-16.0); Lymphocytes # (A) 1.4 k/uL (1.0-4.8); Lymphocytes % (A) 15 %; MCH 32.1 pg (25.0-35.0); MCHC 34.3 g/dL (31.0-37.0); MCV 93.6 fL (80.0-100.0); Mean Platelet Volume 7.2; Monocytes # (A) 0.7 k/uL (0-1.0); Monocytes % (A) 7 %; Neutrophils # (A) 7.1 k/uL (1.3-7.7); Neutrophils % (A) 72 %; Platelet Count 320 k/uL (150-450); RBC 4.09 m/uL (3.80-5.40); RDW 13.6 % (11.5-15.5); WBC 9.7 k/uL (3.8-10.6)
[2021-06-25 12:40] LABS: Albumin 3.6 g/dL (3.5-5.0); Calcium 9.9 mg/dL (8.4-10.2); Potassium 4.1 mmol/L (3.5-5.1); Total Bilirubin 0.7 mg/dL (0.2-1.3); Total Protein 6.6 g/dL (6.3-8.2)
[2021-06-25 12:56] LABS: INR 0.9 (<1.2); Partial Thromboplastin Time 23.5 sec (22.0-30.0)
--- NOTE | 2021-06-25 12:56 | XR ---
EXAMINATION TYPE: XR chest 2V DATE OF EXAM: 06/25/2021 COMPARISON: 11/04/2019 HISTORY: 81-year-old female with epigastric pain TECHNIQUE: AP and lateral views FINDINGS: Heart upper limits of normal in size. Mild interstitial prominence as a chronic appearance. Some stra ndy atelectasis at the left base. No consolidation or pleural effusion. Asymmetric elevation right he midiaphragm is unchanged. IMPRESSION: 1. Chronic-appearing changes. No definite acute process. 2. Asymmetric elevation of the right hemidiaphragm is unchanged and may be due to chronic diaphragmat ic eventration. If concern for hemidiaphragmatic paralysis, a fluoroscopic sniff test can be performe d.
[2021-06-25 13:04] LABS: Appearance,Urine Cloudy (Clear); Bacteria,Urine Occasional /hpf; Bilirubin,Urine Negative (Negative); Blood,Urine Negative (Negative); Color,Urine Yellow; Glucose,Urine (UA) Negative (Negative); Ketones,Urine Negative (Negative); Leukocyte Esterase,Urine Large (Negative); Mucus,Urine Rare /hpf; Nitrite,Urine Positive (Negative); PH, Urine 7.5 (5.0-8.0); Protein,Urine Negative (Negative); RBC,Urine 4 /hpf (0-5); Specific Gravity,Urine 1.012 (1.001-1.035); Squamous Epithelial Cell,Urine <1 /hpf (0-4); Urobilinogen,Urine <2.0 mg/dL (<2.0); WBC,Urine 42 /hpf (0-5)
[2021-06-25] MEDS ORDERED: cefTRIAXone IN SWFI 1,000 MG/10 ML SYRINGE IVP STA (13:33)
== END 2021-06-25 14:41 | disposition home or self-care (01) ==
LOC: EC 10:43
DX: N39.0 Urinary tract infection, site not specified (principal); B96.89 Other specified bacterial agents as the cause of diseases classified elsewhere; R11.2 Nausea with vomiting, unspecified; M25.561 Pain in right knee; E78.5 Hyperlipidemia, unspecified; E07.9 Disorder of thyroid, unspecified; I10 Essential (primary) hypertension; Z79.899 Other long term (current) drug therapy; Z88.2 Allergy status to sulfonamides; Z96.651 Presence of right artificial knee joint; Z79.890 Hormone replacement therapy
CPT/HCPCS: 36415; 93005; 86900; 86901; 80053; 83605; 83690; 84484; 85025; 85610; 85730; 86850; 82272; 81001; 87086; 71046; 99284; 96374; 96375; J2405; J0696; C9113

== ENCOUNTER 2021-07-17 15:10 | Emergency (ER) | payer MEDICARE ==
--- NOTE | 2021-07-17 16:32 | ED ---
General Adult HPI - General Source: patient, RN notes reviewed Mode of arrival: ambulatory Limitations: no limitations <Eric Centeno - Last Filed: 07/17/21 16:31> <Abel Juan - Last Filed: 07/17/21 20:55> - General Stated complaint: Nausea,Abd Pain Time Seen by Provider: 07/17/21 16:32 - History of Present Illness Initial comments: this an 81-year-old female presents emergency Department with chief complaint of abdominal pain. Patient states is progressively getting worse over the last week. States more in the upper abdomen is radiate up into her chest and feels different than heartburn. Patient states it just spreading type pain. No shortness breath no fevers or chills she's had some nausea Vomiting but Primarily Constipated. Patient Denies Any Dysuria Hematuria No Melanotic Stools. (Eric Centeno) Dictation was produced using [employer] dictation software. please excuse any grammatical, word or spelling errors. Chief Complaint: 81-year-old female with multiple comorbidities presents to emergency department for red or quadrant abdominal pain and concerns of GI bleed History of Present Illness: Is 81-year-old female she is here in emergency department because she is having right upper quadrant abdominal pain. Patient still has her gallbladder. She reports that she follow-up with her primary care doctor concerning possible GI bleed. She states she had an episode of hematemesis and black stool couple weeks ago. She was given an appointment with GI doctor for a scope for August. She states she cannot wait until then. She is here in emergency department today saying that she is having active right quadrant pain. Denies any fever. No nausea vomiting. Patient is concerned she may be constipated. The ROS documented in this emergency department record has been reviewed and confirmed by me. Those systems with pertinent positive or negative responses have been documented in the HPI. All other systems are other negative and/or noncontributory. PHYSICAL EXAM: General Impression: Alert and oriented x3, not in acute distress HEENT: Normocephalic atraumatic, extra-ocular movements intact, pupils equal and reactive to light bilaterally, mucous membranes moist. Cardiovascular: Heart regular rate and rhythm Chest: Able to complete full sentences, no retractions, no tachypnea Abdomen: abdomen soft, positive Gallagher sign, non-distended, no organomegaly Musculoskeletal: Pulses present and equal in all extremities, no peripheral edema Motor: no focal deficits noted Neurological: CN II-XII grossly intact, no focal motor or sensory deficits noted Skin: Intact with no visualized rashes Psych: Normal affect and mood Rectal exam: No black stool, no blood, multiple anal tags ED course: 81-year-old female presents to the emergency department for right upper quadrant abdominal pain and concerns of GI bleed. Vital Signs upon arrival are within acceptable limits. Laboratory evaluation obtained. CBC, metabolic panel is unremarkable. Urinalysis shows 115 white blood cells. So, blood is negative. Gallbladder ultrasound shows 2.2 cm gallstone at the neck of the gallbladder with positive sonographic Gallagher sign. No clear indication for acute cholecystitis. Abdominal x-rays shows moderate stool burden. Patient reevaluated at bedside currently stable medical condition. She does not have leukocytosis or laboratory evidence to suggest acute cholecystitis. Patient has a urinary tract infection . She felt a course of Macrobid. Patient given prescription for Keflex. She has Patient given ceftriaxone. EKG interpretation: Ventricular rate 60, normal sinus rhythm,. Interval 160, QRS 74, QTC 444. No OH prolongation, no QTC prolongation, no ST or T-wave changes noted. EKG compared to 06/25/2021 showing no changes. Overall, this EKG is unremarkable (Abel Juan) - Related Data Home Medications Medication Instructions Recorded Confirmed Levothyroxine Sodium [Synthroid] 112 mcg PO DAILY 02/22/18 07/17/21 Methenamine Hippurate [Hiprex] 1 gm PO QID 09/08/18 07/17/21 Metoprolol Tartrate [Lopressor] 25 mg PO BID 09/08/18 07/17/21 Vit C/E/Zn/Coppr/Lutein/Zeaxan 1 tab PO DAILY 02/22/19 07/17/21 [Preservision Areds 2 Softgel] hydroCHLOROthiazide 25 mg PO DAILY 03/21/19 07/17/21 Multivit-Min/Iron/Folic/Lutein 1 tab PO DAILY 07/19/20 07/17/21 [Centrum Silver Women Tablet] DULoxetine HCL [Cymbalta] 60 mg PO DAILY 11/19/20 07/17/21 Pravastatin Sodium [Pravachol] 20 mg PO HS 01/10/21 07/17/21 Trimethoprim 100 mg PO DAILY 01/23/21 07/17/21 Losartan Potassium [Cozaar] 100 mg PO DAILY 06/25/21 07/17/21 Psyllium Husk [Metamucil] 0.4 gm PO DAILY PRN 06/25/21 07/17/21 Cholecalciferol [Vitamin D3 (25 50 mcg PO DAILY 07/17/21 07/17/21 Mcg = 1000 Iu)] L.acidoph,Paracasei, B.lactis 1 cap PO DAILY 07/17/21 07/17/21 [Probiotic] Potassium Chloride ER [K-Dur 10] 10 meq PO Q48H 07/17/21 07/17/21 Previous Rx's Medication Instructions Recorded Cephalexin [Keflex] 500 mg PO Q6HR 10 Days #40 cap 07/17/21 Ondansetron Odt [Zofran Odt] 4 mg PO Q8HR PRN #12 tab 07/17/21 Allergies Allergy/AdvReac Type Severity Reaction Status Date / Time Sulfa (Sulfonamide Allergy Rash/Hives Verified 07/17/21 18:55 Antibiotics) Review of Systems ROS Other: All systems not noted in ROS Statement are negative. <Eric Centeno - Last Filed: 07/17/21 16:31> ROS Other: All systems not noted in ROS Statement are negative. <Abel Juan - Last Filed: 07/17/21 20:55> ROS Statement: Those systems with pertinent positive or pertinent negative responses have been documented in the HPI. Past Medical History Past Medical History: Cancer, Deep Vein Thrombosis (DVT), GERD/Reflux, Hyperlipidemia, Hypertension, Musculoskeletal Disorder, Osteoarthritis (OA), Thyroid Disorder Additional Past Medical History / Comment(s): Low back, BILATERAL KNEE AND RIGHT SHOULDER PAIN. HX DVT 2008. Insomnia, chronic UTI's, varicose veins, constipation, hx "ischemic colitis" 2010, hx skin cancer, SPINAL STENOSIS, NT RT LEG/FOOT. History of Any Multi-Drug Resistant Organisms: None Reported Past Surgical History: Bladder Surgery, Hysterectomy, Orthopedic Surgery Additional Past Surgical History / Comment(s): Parathyroidectomy, Bladder suspension, smita and screws right femur. Cortisone injection, pain clinic procedures. Past Anesthesia/Blood Transfusion Reactions: No Reported Reaction Past Psychological History: Depression Smoking Status: Never smoker Past Alcohol Use History: None Reported Past Drug Use History: None Reported - Past Family History Father Family Medical History: Cancer Additional Family Medical History / Comment(s): Lung Cancer. Mother Family Medical History: Cancer Additional Family Medical History / Comment(s): Breast Cancer. <NeildavidEric M - Last Filed: 07/17/21 16:31> Course Vital Signs 07/17/21 16:32 Temperature 98.7 F Pulse Rate 78 Respiratory 16 Rate Blood Pressure 148/76 O2 Sat by Pulse 98 Oximetry Medical Decision Making - Lab Data Result diagrams: 07/17/21 16:47 07/17/21 16:47 <Abel Juan - Last Filed: 07/17/21 20:55> - Lab Data Lab Results 07/17/21 07/17/21 07/17/21 Range/Units 16:47 16:47 16:47 WBC 7.6 (3.8-10.6) k/uL RBC 4.40 (3.80-5.40) m/uL Hgb 13.6 (11.4-16.0) gm/dL Hct 42.3 (34.0-46.0) % MCV 96.2 (80.0-100.0) fL MCH 31.0 (25.0-35.0) pg MCHC 32.2 (31.0-37.0) g/dL RDW 13.6 (11.5-15.5) % Plt Count 310 (150-450) k/uL MPV 7.6 Neutrophils % 60 % Lymphocytes % 23 % Monocytes % 10 % Eosinophils % 4 % Basophils % 1 % Neutrophils # 4.6 (1.3-7.7) k/uL Lymphocytes # 1.8 (1.0-4.8) k/uL Monocytes # 0.8 (0-1.0) k/uL Eosinophils # 0.3 (0-0.7) k/uL Basophils # 0.1 (0-0.2) k/uL Sodium 138 (137-145) mmol/L Potassium 3.6 (3.5-5.1) mmol/L Chloride 101 (98-107) mmol/L Carbon Dioxide 27 (22-30) mmol/L Anion Gap 10 mmol/L BUN 21 H (7-17) mg/dL Creatinine 0.89 (0.52-1.04) mg/dL Est GFR (CKD-EPI)AfAm 70 (>60 ml/min/1.73 sqM) Est GFR (CKD-EPI)NonAf 61 (>60 ml/min/1.73 sqM) Glucose 113 H (74-99) mg/dL Plasma Lactic Acid Iftikhar (0.7-2.0) mmol/L Calcium 10.4 H (8.4-10.2) mg/dL Total Bilirubin 0.5 (0.2-1.3) mg/dL AST 21 (14-36) U/L ALT 11 (4-34) U/L Alkaline Phosphatase 108 (38-126) U/L Troponin I (0.000-0.034) ng/mL Total Protein 7.2 (6.3-8.2) g/dL Albumin 4.1 (3.5-5.0) g/dL Amylase 73 (30-110) U/L Lipase 112 (23-300) U/L Urine Color Yellow Urine Appearance Cloudy H (Clear) Urine pH 6.5 (5.0-8.0) Ur Specific [place] 1.023 (1.001-1.035) Urine Protein Trace H (Negative) Urine Glucose (UA) Negative (Negative) Urine Ketones Negative (Negative) Urine Blood Negative (Negative) Urine Nitrite Positive H (Negative) Urine Bilirubin Negative (Negative) Urine Urobilinogen <2.0 (<2.0) mg/dL Ur Leukocyte Esterase Large H (Negative) Urine RBC 3 (0-5) /hpf Urine WBC 115 H (0-5) /hpf Ur Squamous Epith Cells 4 (0-4) /hpf Urine Bacteria Many H (None) /hpf Urine Mucus Rare H (None) /hpf Stool Occult Blood (Negative) 07/17/21 07/17/21 07/17/21 Range/Units 16:47 16:47 Unknown WBC (3.8-10.6) k/uL RBC (3.80-5.40) m/uL Hgb (11.4-16.0) gm/dL Hct (34.0-46.0) % MCV (80.0-100.0) fL MCH (25.0-35.0) pg MCHC (31.0-37.0) g/dL RDW (11.5-15.5) % Plt Count (150-450) k/uL MPV Neutrophils % % Lymphocytes % % Monocytes % % Eosinophils % % Basophils % % Neutrophils # (1.3-7.7) k/uL Lymphocytes # (1.0-4.8) k/uL Monocytes # (0-1.0) k/uL Eosinophils # (0-0.7) k/uL Basophils # (0-0.2) k/uL Sodium (137-145) mmol/L Potassium (3.5-5.1) mmol/L Chloride (98-107) mmol/L Carbon Dioxide (22-30) mmol/L Anion Gap mmol/L BUN (7-17) mg/dL Creatinine (0.52-1.04) mg/dL Est GFR (CKD-EPI)AfAm (>60 ml/min/1.73 sqM) Est GFR (CKD-EPI)NonAf (>60 ml/min/1.73 sqM) Glucose (74-99) mg/dL Plasma Lactic Acid Iftikhar 1.5 (0.7-2.0) mmol/L Calcium (8.4-10.2) mg/dL Total Bilirubin (0.2-1.3) mg/dL AST (14-36) U/L ALT (4-34) U/L Alkaline Phosphatase (38-126) U/L Troponin I <0.012 (0.000-0.034) ng/mL Total Protein (6.3-8.2) g/dL Albumin (3.5-5.0) g/dL Amylase (30-110) U/L Lipase (23-300) U/L Urine Color Urine Appearance (Clear) Urine pH (5.0-8.0) Ur Specific [place] (1.001-1.035) Urine Protein (Negative) Urine Glucose (UA) (Negative) Urine Ketones (Negative) Urine Blood (Negative) Urine Nitrite (Negative) Urine Bilirubin (Negative) Urine Urobilinogen (<2.0) mg/dL Ur Leukocyte Esterase (Negative) Urine RBC (0-5) /hpf Urine WBC (0-5) /hpf Ur Squamous Epith Cells (0-4) /hpf Urine Bacteria (None) /hpf Urine Mucus (None) /hpf Stool Occult Blood Negative (Negative) Disposition <Eric Centeno - Last Filed: 07/17/21 16:31> Is patient prescribed a controlled substance at d/c from ED?: No <Abel Juan - Last Filed: 07/17/21 20:55> Clinical Impression: Symptomatic cholelithiasis, UTI (urinary tract infection) Disposition: HOME SELF-CARE Condition: Good Instructions (If sedation given, give patient instructions): Gallstones (ED), Urinary Tract Infection in Women (DC) Prescriptions: Cephalexin [Keflex] 500 mg PO Q6HR 10 Days #40 cap Ondansetron Odt [Zofran Odt] 4 mg PO Q8HR PRN #12 tab PRN Reason: Nausea Referrals: John Mirza [Primary Care Provider] - 1-2 days Tejal Pulido MD [STAFF PHYSICIAN] - 1-2 days
[2021-07-17 17:08] LABS: Basophils # (A) 0.1 k/uL (0-0.2); Basophils % (A) 1 %; Eosinophils # (A) 0.3 k/uL (0-0.7); Eosinophils % (A) 4 %; HCT 42.3 % (34.0-46.0); HGB 13.6 gm/dL (11.4-16.0); Lymphocytes # (A) 1.8 k/uL (1.0-4.8); Lymphocytes % (A) 23 %; MCHC 32.2 g/dL (31.0-37.0); MCV 96.2 fL (80.0-100.0); Mean Platelet Volume 7.6; Monocytes # (A) 0.8 k/uL (0-1.0); Monocytes % (A) 10 %; Neutrophils # (A) 4.6 k/uL (1.3-7.7); Neutrophils % (A) 60 %; Platelet Count 310 k/uL (150-450); RDW 13.6 % (11.5-15.5); WBC 7.6 k/uL (3.8-10.6)
[2021-07-17 17:22] LABS: Albumin 4.1 g/dL (3.5-5.0); Calcium 10.4 mg/dL (8.4-10.2); Potassium 3.6 mmol/L (3.5-5.1); Total Bilirubin 0.5 mg/dL (0.2-1.3); Total Protein 7.2 g/dL (6.3-8.2)
[2021-07-17 17:53] LABS: Appearance,Urine Cloudy (Clear); Bacteria,Urine Many /hpf; Bilirubin,Urine Negative (Negative); Blood,Urine Negative (Negative); Color,Urine Yellow; Glucose,Urine (UA) Negative (Negative); Ketones,Urine Negative (Negative); Leukocyte Esterase,Urine Large (Negative); Mucus,Urine Rare /hpf; Nitrite,Urine Positive (Negative); PH, Urine 6.5 (5.0-8.0); Protein,Urine Trace (Negative); RBC,Urine 3 /hpf (0-5); Specific Gravity,Urine 1.023 (1.001-1.035); Squamous Epithelial Cell,Urine 4 /hpf (0-4); Urobilinogen,Urine <2.0 mg/dL (<2.0); WBC,Urine 115 /hpf (0-5)
--- NOTE | 2021-07-17 20:10 | XR ---
EXAMINATION TYPE: XR abdomen 1V DATE OF EXAM: 07/17/2021 Comparison: None Clinical History: 81-year-old female right-sided abdominal pain Findings: There is a 2.3 cm gallstone noted in the right upper quadrant. Scattered moderate stool burden. No di lated small bowel or air-fluid levels. No evidence for free intraperitoneal air. Lung bases appear clear. Partially visualized right total hip thoracoplasty. Impression: 1. Large 2.3 cm gallstone. 2. No evidence for free air or bowel obstruction. 2. Moderate stool burden.
--- NOTE | 2021-07-17 20:15 | US ---
EXAMINATION TYPE: US gallbladder DATE OF EXAM: 07/17/2021 COMPARISON: NONE CLINICAL HISTORY: 81-year-old female abdominal pain. TECHNIQUE: Multiple sonographic images of the right upper quadrant are obtained. FINDINGS: EXAM MEASUREMENTS: Liver Length: 12.7 cm Gallbladder Wall: 0.2 cm CBD: 0.4 cm Right Kidney: 8.4 x 4.5 x 3.8 cm Pancreas: Tail obscured by overlying bowel gas Liver: wnl Gallbladder: Stone visualized measuring 2.2 cm in gallbladder neck. No hydropic change at this time and no surrounding fluid identified. No wall thickening at this time. Evidence for sonographic Gallagher's sign: Yes CBD: wnl Right Kidney: Slightly atrophic. No hydronephrosis. IMPRESSION: 1. Large 2.2 cm gallstone at the neck of the gallbladder with a positive sonographic Gallagher sign. How ever, there is no hydropic change, wall thickening, or surrounding fluid to clearly indicate acute ch olecystitis at this time. Transient stone impaction is possible. If concern for impending acute jasvir cystitis, HIDA scan can be considered. 2. No biliary ductal dilatation.
[2021-07-17] MEDS ORDERED: cefTRIAXone IN SWFI 1,000 MG/10 ML SYRINGE IVP STA (20:47)
[2021-07-17] MEDS ORDERED: ONDANSETRON 4 MG ODT STARTER PACK 2 TAB BTL PO STA (20:58)
[2021-07-17 21:09] VITALS: BP 157/80; PULSE 79; RESP 17; TEMP 97.9
== END 2021-07-17 21:20 | disposition home or self-care (01) ==
LOC: EC 15:10
DX: K80.20 Calculus of gallbladder without cholecystitis without obstruction (principal); N39.0 Urinary tract infection, site not specified; I10 Essential (primary) hypertension; Z79.899 Other long term (current) drug therapy; Z88.2 Allergy status to sulfonamides
CPT/HCPCS: 99284; 96374; 36415; 93005; 80053; 82150; 83605; 83690; 84484; 85025; 82272; 81001; 87086; 74018; 76705; J0696

== ENCOUNTER → 2021-08-09 | Outpatient (CLI) | payer MEDICARE ==
--- NOTE | 2021-08-09 15:45 | US ---
EXAMINATION TYPE: US kidneys/renal and bladder DATE OF EXAM: 08/09/2021 COMPARISON: NONE CLINICAL HISTORY: N39.0 Urinary tract infections. EXAM MEASUREMENTS: Right Kidney: 9.5 x 4.6 x 4.4 cm Left Kidney: 9.5 x 5.4 x 4.7 cm Right Kidney: No hydronephrosis or masses seen Left Kidney: No hydronephrosis or masses seen Bladder: wnl Bilateral Jets seen: Yes IMPRESSION: 1. Normal renal ultrasound
--- NOTE | 2021-08-09 16:57 | XR ---
EXAMINATION TYPE: XR KUB DATE OF EXAM: 08/09/2021 Comparison: None Clinical History: 81-year-old female N39.0 Urinary tract infections Findings: Round calcification right upper quadrant measuring 2.5 cm. Nonobstructive bowel gas pattern. Scattere d mild to moderate stool. Vascular calcifications in the pelvis. Partially visualized right hip total arthroplasty. Degenerative changes lower lumbar spine. Impression: 2.5 cm gallstone redemonstrated. Mild to moderate stool burden. Nonobstructive bowel gas pattern.
== END | disposition home or self-care (01) ==
LOC: RADUSWWP 14:19
PROVIDERS: ATTEND Urology
DX: N39.0 Urinary tract infection, site not specified (principal)
CPT/HCPCS: 74018; 76770

== ENCOUNTER → 2021-08-15 | Outpatient (CLI) | payer MEDICARE ==
--- NOTE | 2021-08-15 16:24 | BD ---
EXAMINATION TYPE: Axial Bone Density DATE OF EXAM: 08/15/2021 COMPARISON: NONE CLINICAL HISTORY: 81 YR OLD FEMALE....ICD-10 CODE: OSTEOPOROSIS Height: 60.3 Weight: 195 FRAX RISK QUESTIONS: History of Fracture in Adulthood: YES RISK FACTORS HISTORY OF: HX OF FEMORAL FX AN ADULT RT Surgery to RT HIP AND RT KNEE REPLACEMENTS Postmenopausal woman: YES, AT 55 YRS OLD Take estrogen and/or progesterone medications: YES, IN THE PAST FOR 15 YRS NONE NOW Lost more than 2 inches in height since high school: YES Frequent falls: UNSTEADY, IN WHEELCHAIR, NEEDS HELP WALKING Poor Health: ELDERLY Hyperparathyroidism: UNKNOWN Adrenal Insufficiency: UNKNOWN MEDICATIONS: Thyroid Medications: YES, FOR ABOUT 20+ YRS Additional Medications: BP MEDS, CYMBALTA, STATIN FOR CHOLESTEROL, VIT D AND CALCIUM IN HER MULTIVITA MIN, TYLENOL 3, Additional History: HYPERTENSION, CHOLESTEROL, THYROID, ARTHRITIS, PAIN EXAM MEASUREMENTS: Bone mineral densitometry was performed using the [employer] System. Bone mineral density as measured about the Lumbar spine is: ----- L1-L4(G/cm2): 1.245 T Score Values are as follows: ----- L2: 0.1 ----- L3: 1.7 ----- L4: 0.6 ----- L1-L4: 0.5 PREV DONE AT [facility] Bone mineral density about the L hip (g/cm2): 0.830 T Score values are as follows: -----L Neck: -1.5 -----L Total: -1.5 PREV DONE AT [facility] IMPRESSION: Osteopenia (T Score between -2.5 and -1). There is slightly increased risk of fracture and the patient may be considered for treatment. Re-Screen 2-5 years. NOTE: T-SCORE=SD OF THE YOUNG ADULT MEAN.
== END | disposition home or self-care (01) ==
LOC: RADBDWWP 13:17
PROVIDERS: ATTEND Family Medicine
DX: M81.0 Age-related osteoporosis without current pathological fracture (principal)
CPT/HCPCS: 77080

== ENCOUNTER 2021-09-13 08:13 | Day surgery (SDC) | payer MEDICARE ==
[2021-09-10 10:12] VITALS: BMI 37.0
--- NOTE | 2021-09-13 05:33 | P.GSHP ---
History of Present Illness H&P Date: 09/13/21 CHIEF COMPLAINT: Cholecystitis HISTORY OF PRESENT ILLNESS: The patient is a 81-year-old female who presents with history of epigastric including right upper quadrant abdominal pain. She underwent diagnostic studies for her gallbladder. Separately her clinical picture was consistent with cholecystitis. Now she presents for surgical intervention. PAST MEDICAL HISTORY: Please see list PAST SURGICAL HISTORY: Please see list MEDICATIONS: Please see list ALLERGIES: Please see list SOCIAL HISTORY: Please see list FAMILY HISTORY: Please see list REVIEW OF ORGAN SYSTEMS: CONSTITUTIONAL: No reports of fevers or chills. CARDIO: Has hypertensive heart disease PHYSICAL EXAM: VITAL SIGNS: Afebrile vital signs stable GENERAL: Well-developed pleasant in no acute distress. HEENT: No scleral icterus. Extraocular movements grossly intact. Moist buccal mucosa. NECK: Supple without lymphadenopathy. CHEST: Unlabored respirations. Equal bilateral excursions. CARDIOVASCULAR: Regular rate regular rhythm rhythm. Distal 2+ pulses. ABDOMEN: Soft, nondistended. Tender along the epigastrium and right upper quadrant. MUSCULOSKELETAL: No clubbing, cyanosis, or edema. NEURO: Cranial nerves II to XII within normal limits. No focal or lateralizing signs. PSYCH: Alert and oriented to person, place and time. SKIN: Well-perfused good skin turgor. ASSESSMENT: 1. Epigastric and right upper quadrant abdominal pain 2. Chronic cholecystitis 3. Symptomatic gallstones. 4. Hypertensive heart disease PLAN: 1. Will need a robotic cholecystectomy possible open. Benefits and risks were described. 2. Heparin for DVT prophylaxis 5000 units. 3. Antibiotic prophylaxis. 4. She is elevated risk due to hypertensive heart disease. Past Medical History Past Medical History: Cancer, Deep Vein Thrombosis (DVT), Hyperlipidemia, Hypertension, Osteoarthritis (OA), Thyroid Disorder Additional Past Medical History / Comment(s): HX DVT 2008. Insomnia, chronic UTI's, varicose veins, constipation, hx "ischemic colitis" 2010, hx skin cancer, SPINAL STENOSIS, NT left LEG/FOOT. gallstones, collapsed tendon left foot, generalized arthritis History of Any Multi-Drug Resistant Organisms: None Reported Past Surgical History: Bladder Surgery, Hysterectomy, Joint Replacement, Orthopedic Surgery Additional Past Surgical History / Comment(s): Parathyroidectomy, Bladder suspension, smita and screws right femur. Cortisone injection, pain clinic procedures. rt hip replacement, rt knee replacement 06/2021, lakisha cataracts Past Anesthesia/Blood Transfusion Reactions: No Reported Reaction Smoking Status: Never smoker - Past Family History Father Family Medical History: Cancer Additional Family Medical History / Comment(s): Lung Cancer. Mother Family Medical History: Cancer Additional Family Medical History / Comment(s): Breast Cancer. Medications and Allergies Home Medications Medication Instructions Recorded Confirmed Type Levothyroxine Sodium [Synthroid] 112 mcg PO DAILY 02/22/18 09/10/21 History Methenamine Hippurate [Hiprex] 1 gm PO QID 09/08/18 09/10/21 History Metoprolol Tartrate [Lopressor] 25 mg PO BID 09/08/18 09/10/21 History Vit C/E/Zn/Coppr/Lutein/Zeaxan 2 tab PO W/SUPPER 02/22/19 09/10/21 History [Preservision Areds 2 Softgel] hydroCHLOROthiazide 25 mg PO DAILY 03/21/19 09/10/21 History Multivit-Min/Iron/Folic/Lutein 1 tab PO DAILY 07/19/20 09/10/21 History [Centrum Silver Women Tablet] DULoxetine HCL [Cymbalta] 60 mg PO DAILY 11/19/20 09/10/21 History Pravastatin Sodium [Pravachol] 20 mg PO HS 01/10/21 09/10/21 History Trimethoprim 100 mg PO DAILY 01/23/21 09/10/21 History Losartan Potassium [Cozaar] 100 mg PO DAILY 06/25/21 09/10/21 History Psyllium Husk [Metamucil] 0.4 gm PO DAILY PRN 06/25/21 09/10/21 History Cholecalciferol [Vitamin D3 (25 50 mcg PO DAILY 07/17/21 09/10/21 History Mcg = 1000 Iu)] Menthol [Biofreeze] 1 applic TOPICAL DIRECTED PRN 09/10/21 09/10/21 History traMADol HCl [Ultram] 50 mg PO DIRECTED PRN 09/10/21 09/10/21 History Allergies Allergy/AdvReac Type Severity Reaction Status Date / Time Sulfa (Sulfonamide Allergy Rash/Hives Verified 09/10/21 09:57 Antibiotics)
[~2021-09-13 08:13] MED LIST changes: +ACETAMINOPHEN TAB 500 MG TAB PO PRN; +DEXAMETHASONE SOD PHOSPHATE 4 MG/ML 1 ML VIAL IV ONE; +GABAPENTIN 300 MG CAP PO PRN; +HEPARIN SODIUM,PORCINE/PF 5,000 UNIT/0.5 ML SYRINGE SQ PRN; +HYDROmorphone 0.5 MG/0.5 ML SYRINGE IVP PRN; +INDOCYANINE GREEN 25 MG VIAL IV STA; +MIDAZOLAM 2 MG/2 ML VIAL IV PRN; +ONDANSETRON 4 MG/2 ML VIAL IVP ONE
[2021-09-13 09:35] LABS: Basophils # (A) 0.1 k/uL (0-0.2); Basophils % (A) 1 %; Eosinophils # (A) 0.3 k/uL (0-0.7); Eosinophils % (A) 4 %; HCT 41.9 % (34.0-46.0); HGB 13.8 gm/dL (11.4-16.0); Lymphocytes % (A) 26 %; MCH 29.3 pg (25.0-35.0); MCHC 32.9 g/dL (31.0-37.0); Mean Platelet Volume 7.4; Monocytes # (A) 0.7 k/uL (0-1.0); Monocytes % (A) 10 %; Neutrophils # (A) 4.3 k/uL (1.3-7.7); Neutrophils % (A) 57 %; Platelet Count 290 k/uL (150-450); RDW 13.3 % (11.5-15.5); WBC 7.5 k/uL (3.8-10.6)
[2021-09-13 09:45] LABS: Potassium 4.5 mmol/L (3.5-5.1); Total Bilirubin 0.5 mg/dL (0.2-1.3); Total Protein 7.4 g/dL (6.3-8.2)
[2021-09-13 09:46] LABS: MCV 89.2 fL (80.0-100.0)
--- NOTE | 2021-09-13 10:00 | P.HPADDEND ---
H&P Addendum H&P Addendum Date: 09/13/21 Upper endoscopy described for bleeding gastritis. Benefits and risks of cholecystectomy reviewed.
[2021-09-13] MEDS ORDERED: PROPOFOL 10 MG/ML 20 ML VIAL IV ONE (10:11)
[2021-09-13] MEDS ORDERED: INDOCYANINE GREEN 25 MG VIAL IV ONE (10:11)
[2021-09-13] MEDS ORDERED: GLYCOPYRROLATE 0.2 MG/ML 2 ML VIAL ONE (10:11)
[2021-09-13] MEDS ORDERED: SUCCINYLCHOLINE CHLORIDE 100 MG/5 ML SYR IV ONE (10:11)
[2021-09-13] MEDS ORDERED: NEOSTIGMINE 1 MG/ML 10 ML VIAL ONE (10:11)
[2021-09-13] MEDS ORDERED: LIDOCAINE 1% INJ 10MG/ML (20 ML MDV) ONE (10:11)
[2021-09-13] MEDS ORDERED: LABETALOL 5 MG/ML VIAL MDV ONE (10:11)
[2021-09-13] MEDS ORDERED: .fentaNYL (PF) 50 MCG/ML 2 ML AMP ONE (10:11)
[2021-09-13] MEDS ORDERED: BUPIVACAIN-EPI 0.25%-1:200,000 30 ML VIAL SQ ONE (10:41)
[2021-09-13] MEDS ORDERED: LACTATED RINGERS 1,000 ML IV ONE (11:15)
[2021-09-13 11:33] VITALS: TEMP 97
[2021-09-13 11:34] VITALS: RESP 16
--- NOTE | 2021-09-13 12:39 | P.OP ---
Date of Procedure: 09/13/21 Description of Procedure: SURGEON: TEJAL PULIDO MD PREOPERATIVE DIAGNOSES: 1. Symptomatic gallstones 2. Epigastric and right upper quadrant abdominal pain 3. Hypertensive heart disease 4. Morbid obesity due to excess calories, BMI 37.5 5. Depressive disorder 6. Hypothyroidism 7. Hyperlipidemia 8. Past history deep venous thrombosis POSTOPERATIVE DIAGNOSES: 1. Symptomatic gallstones 2. Epigastric and right upper quadrant abdominal pain 3. Hypertensive heart disease 4. Morbid obesity due to excess calories, BMI 37.5 5. Depressive disorder 6. Hypothyroidism 7. Hyperlipidemia 8. Past history deep venous thrombosis 9. Pelvic peritoneal adhesions 10. Duodenal ulcer 11. Fatty liver disease OPERATION: 1. Robotic-assisted da Svetlana Xi laparoscopic cholecystectomy, multiport with FIREFLY 2. Intraoperative esophagogastroduodenoscopy, please see separate operative report ESTIMATED BLOOD LOSS: 5 mL. SPECIMENS REMOVED: Gallbladder. COMPLICATIONS: None. OPERATIVE FINDINGS: 1. Lower midline, pelvic adhesions. 2. Large singular 2 cm gallstone 3. Enlarged gallbladder lymph node 4. Fatty liver disease 5. Dilated common bile duct 6. Duodenal ulcer involving second and third portion 7. Stent at papilla of duodenum undisturbed. INDICATIONS: The patient is a 81-year-old female who presents with symptomatic gallstones. Robotic assisted laparoscopic approach was described. Benefits and risks of the procedure including but not limited to bleeding, infection, injury to the biliary tree was described. Informed consent was obtained. DESCRIPTION OF PROCEDURE: Patient was brought to the operating room, placed in supine position. After general induction, the abdomen had been prepped and draped in standard sterile fashion. The robotic da Svetlana XI system was primed. After a timeout protocol was performed, the patient had been prepped and draped in standard sterile fashion. The patient was injected with indocyanine green. A 5 mm 0 degrees laparoscopic trocar entry was performed along the left upper quadrant. The abdomen insufflated to 15 mmHg pressure which was tolerated well. Diagnostic laparoscopy demonstrated no injury to bowel viscera or mesentery. Abdominal pelvic adhesions were identified and undisturbed. The liver surface was remarkable for fatty liver disease. Next, two 8 mm robotic ports were placed along the right upper abdomen. The camera 8-mm port was maintained along the epigastrium. Another 8 mm port was placed along the left upper abdominal wall after exchanging the 5 mm port. Please note that the ports were placed at least 10 to 15 cm away from the target anatomy of the gallbladder. The robot was docked along the left lateral abdomen. The patient was repositioned in reverse Trendelenburg position. Using a grasper for arm 3, a grasper for arm 4, including hook cautery for arm 1, the robotic system was docked and primed as described. Instruments were interchanged by the respiratory care assistant including hook cautery, Bovie cautery and clip appliers. I had sat at the console. The gallbladder was scarred with peritoneal adhesions. Lysis of adhesions was performed to free the gallbladder from the surrounding tissues. Next attention was brought to the infundibulum and cystic structures. The infundibulum and cystic duct were dissected free from surrounding tissues. The cystic duct was isolated including enlarged lymph node of the cystic duct. FIREFLY was used to identify the cystic artery and cystic structures. The common bile duct was dilated. A critical view of safety was obtained. Large PLASTIC clips were used throughout the entire case. Using a clip asphalt spreader, 2 clips were placed at the junction of the infundibulum and cystic duct. The cystic duct was divided between clips. Next, the cystic artery was similarly clipped and cauterized. Electro-Bovie cautery was used to remove the gallbladder from the hepatic fossa. Hemostasis was checked and found to be adequate. The robot was undocked. I went to the head of the bed for upper endoscopy. Please see separate operative report. I re-scrubbed into the case. Using a 10 mm Endo Catch bag via the left upper quadrant incision, the specimen was removed from the abdominal cavity. All pneumoperitoneum instruments were evacuated from the abdominal cavity. The incisions were reapproximated using 4-0 Monocryl in an interrupted subcuticular fashion. Fascial defects were less than 8 mm in size. Please note along the trocar sites, local anesthetic was placed as a field block prior to insertion of all instruments. Liquid glue was applied to the skin. At the end of the procedure needle, sponge, and instrument count had been verified correct by the registered nurse surgical services. The patient was transferred to postanesthesia care unit in stable condition. Intraoperative films were shared with the patient's family. Plan - Discharge Summary Discharge Rx Participant: Yes New Discharge Prescriptions: New Omeprazole [PriLOSEC] 40 mg PO DAILY #30 cap Acetaminophen Tab [Tylenol Tab] 1,000 mg PO Q6HR PRN #30 tablet PRN Reason: Pain Simethicone [Gas-X] 125 mg PO AC-TID PRN #20 capsule PRN Reason: Pain Continue Levothyroxine Sodium [Synthroid] 112 mcg PO DAILY Metoprolol Tartrate [Lopressor] 25 mg PO BID Methenamine Hippurate [Hiprex] 1 gm PO QID Vit C/E/Zn/Coppr/Lutein/Zeaxan [Preservision Areds 2 Softgel] 2 tab PO W/SUPPER hydroCHLOROthiazide 25 mg PO DAILY Multivit-Min/Iron/Folic/Lutein [Centrum Silver Women Tablet] 1 tab PO DAILY DULoxetine HCL [Cymbalta] 60 mg PO DAILY Pravastatin Sodium [Pravachol] 20 mg PO HS Trimethoprim 100 mg PO DAILY Losartan Potassium [Cozaar] 100 mg PO DAILY Cholecalciferol [Vitamin D3 (25 Mcg = 1000 Iu)] 50 mcg PO DAILY Menthol [Biofreeze] 1 applic TOPICAL DIRECTED PRN PRN Reason: Pain Psyllium Husk [Metamucil] 0.4 gm PO DAILY PRN PRN Reason: Constipation traMADol HCl [Ultram] 50 mg PO DIRECTED PRN PRN Reason: Pain Discharge Medication List Levothyroxine Sodium [Synthroid] 112 mcg PO DAILY 02/22/18 [History] Methenamine Hippurate [Hiprex] 1 gm PO QID 09/08/18 [History] Metoprolol Tartrate [Lopressor] 25 mg PO BID 09/08/18 [History] Vit C/E/Zn/Coppr/Lutein/Zeaxan [Preservision Areds 2 Softgel] 2 tab PO W/SUPPER 02/22/19 [History] hydroCHLOROthiazide 25 mg PO DAILY 03/21/19 [History] Multivit-Min/Iron/Folic/Lutein [Centrum Silver Women Tablet] 1 tab PO DAILY 07/19/20 [History] DULoxetine HCL [Cymbalta] 60 mg PO DAILY 11/19/20 [History] Pravastatin Sodium [Pravachol] 20 mg PO HS 01/10/21 [History] Trimethoprim 100 mg PO DAILY 01/23/21 [History] Losartan Potassium [Cozaar] 100 mg PO DAILY 06/25/21 [History] Psyllium Husk [Metamucil] 0.4 gm PO DAILY PRN 06/25/21 [History] Cholecalciferol [Vitamin D3 (25 Mcg = 1000 Iu)] 50 mcg PO DAILY 07/17/21 [History] Menthol [Biofreeze] 1 applic TOPICAL DIRECTED PRN 09/10/21 [History] traMADol HCl [Ultram] 50 mg PO DIRECTED PRN 09/10/21 [History] Acetaminophen Tab [Tylenol Tab] 1,000 mg PO Q6HR PRN #30 tablet 09/13/21 [Rx] Omeprazole [PriLOSEC] 40 mg PO DAILY #30 cap 09/13/21 [Rx] Simethicone [Gas-X] 125 mg PO AC-TID PRN #20 capsule 09/13/21 [Rx] Follow up Appointment(s)/Referral(s): Tejal Pulido MD [STAFF PHYSICIAN] - 09/19/21 Patient Instructions/Handouts: *[facility] - Managing Your Pain After Surgery Without Opioids, Low Fat Diet (DC), Laparoscopic Cholecystectomy (DC), Peptic Ulcer (DC), Duodenitis (DC) Activity/Diet/Wound Care/Special Instructions: Recommend low-fat diet for the next 2 days. No lifting over 10 pounds in 2 weeks until . May shower. No bath tub soaks for two weeks until . Diet as tolerated. Use Tylenol, simethicone and ibuprofen or Aleve scheduled for the next 24-48 hours for best pain relief. Use ice along incisions for today to prevent swelling. Discharge Disposition: HOME SELF-CARE
--- NOTE | 2021-09-13 12:50 | P.PCN ---
Date of Procedure: 09/13/21 Description of Procedure: PREOPERATIVE DIAGNOSIS: Gastritis with bleeding POSTOPERATIVE DIAGNOSIS: Retained food for gastroparesis Duodenal ulceration Foreign body, pancreatic duct OPERATION: Esophagogastroduodenoscopy, intraoperative SURGEON: Tejal Pulido MD ANESTHESIA: GETA INDICATIONS: The patient is a 81year-old female who presents gastritis with bleeding. Benefits and risks of the procedure were described. Informed consent was obtained. DESCRIPTION: After completion of cholecystectomy, please see separate operative report, I went to the head of the bed to perform upper endoscopy. An Olympus gastroscope was passed along the posterior oropharynx down to the distal esophagus where the squamocolumnar junction was encountered at 36 cm from the incisors. The stomach was entered and retained food was found in the stomach. Additional findings are listed below. The first through third portion of the duodenum was examined and remarkable for duodenitis including edema of the second and third portion with duodenal ulcer. A foreign body likely a stent at the pancreatic papilla was identified. Retroflexion of the scope confirmed Hill grade 2 lower esophageal valve. The squamocolumnar junction demonstrated LA grade A erosive esophagitis. The stomach was desufflated. The patient tolerated the procedure well. FINDINGS: Squamocolumnar junction 36 cm from the incisors. Diaphragmatic hiatus at 36 cm. Hill grade 2 lower esophageal valve. LA grade B erosive esophagitis. Active duodenitis Chronic gastritis with retained food consistent with gastroparesis Edema of the second and third portion with duodenal ulcer. Foreign body likely a stent at the pancreatic papilla was identified. RECOMMENDATIONS: 1. Additional diagnostic imaging for pancreatic versus duodenal stent 2. Referral to GI for retrieval of foreign body stent Plan - Discharge Summary Discharge Rx Participant: Yes New Discharge Prescriptions: New Omeprazole [PriLOSEC] 40 mg PO DAILY #30 cap Acetaminophen Tab [Tylenol Tab] 1,000 mg PO Q6HR PRN #30 tablet PRN Reason: Pain Simethicone [Gas-X] 125 mg PO AC-TID PRN #20 capsule PRN Reason: Pain Continue Levothyroxine Sodium [Synthroid] 112 mcg PO DAILY Metoprolol Tartrate [Lopressor] 25 mg PO BID Methenamine Hippurate [Hiprex] 1 gm PO QID Vit C/E/Zn/Coppr/Lutein/Zeaxan [Preservision Areds 2 Softgel] 2 tab PO W/SUPPER hydroCHLOROthiazide 25 mg PO DAILY Multivit-Min/Iron/Folic/Lutein [Centrum Silver Women Tablet] 1 tab PO DAILY DULoxetine HCL [Cymbalta] 60 mg PO DAILY Pravastatin Sodium [Pravachol] 20 mg PO HS Trimethoprim 100 mg PO DAILY Losartan Potassium [Cozaar] 100 mg PO DAILY Cholecalciferol [Vitamin D3 (25 Mcg = 1000 Iu)] 50 mcg PO DAILY Menthol [Biofreeze] 1 applic TOPICAL DIRECTED PRN PRN Reason: Pain Psyllium Husk [Metamucil] 0.4 gm PO DAILY PRN PRN Reason: Constipation traMADol HCl [Ultram] 50 mg PO DIRECTED PRN PRN Reason: Pain Discharge Medication List Levothyroxine Sodium [Synthroid] 112 mcg PO DAILY 02/22/18 [History] Methenamine Hippurate [Hiprex] 1 gm PO QID 09/08/18 [History] Metoprolol Tartrate [Lopressor] 25 mg PO BID 09/08/18 [History] Vit C/E/Zn/Coppr/Lutein/Zeaxan [Preservision Areds 2 Softgel] 2 tab PO W/SUPPER 02/22/19 [History] hydroCHLOROthiazide 25 mg PO DAILY 03/21/19 [History] Multivit-Min/Iron/Folic/Lutein [Centrum Silver Women Tablet] 1 tab PO DAILY 07/19/20 [History] DULoxetine HCL [Cymbalta] 60 mg PO DAILY 11/19/20 [History] Pravastatin Sodium [Pravachol] 20 mg PO HS 01/10/21 [History] Trimethoprim 100 mg PO DAILY 01/23/21 [History] Losartan Potassium [Cozaar] 100 mg PO DAILY 06/25/21 [History] Psyllium Husk [Metamucil] 0.4 gm PO DAILY PRN 06/25/21 [History] Cholecalciferol [Vitamin D3 (25 Mcg = 1000 Iu)] 50 mcg PO DAILY 07/17/21 [History] Menthol [Biofreeze] 1 applic TOPICAL DIRECTED PRN 09/10/21 [History] traMADol HCl [Ultram] 50 mg PO DIRECTED PRN 09/10/21 [History] Acetaminophen Tab [Tylenol Tab] 1,000 mg PO Q6HR PRN #30 tablet 09/13/21 [Rx] Omeprazole [PriLOSEC] 40 mg PO DAILY #30 cap 09/13/21 [Rx] Simethicone [Gas-X] 125 mg PO AC-TID PRN #20 capsule 09/13/21 [Rx] Follow up Appointment(s)/Referral(s): Tejal Pulido MD [STAFF PHYSICIAN] - 09/19/21 Patient Instructions/Handouts: *[facility] - Managing Your Pain After Surgery Without Opioids, Peptic Ulcer (DC), Low Fat Diet (DC), Duodenitis (DC), Laparoscopic Cholecystectomy (DC) Activity/Diet/Wound Care/Special Instructions: Recommend low-fat diet for the next 2 days. No lifting over 10 pounds in 2 weeks until . May shower. No bath tub soaks for two weeks until . Diet as tolerated. Use Tylenol, simethicone and ibuprofen or Aleve scheduled for the next 24-48 hours for best pain relief. Use ice along incisions for today to prevent swelling. Discharge Disposition: HOME SELF-CARE
[2021-09-13 13:59] VITALS: BP 148/70; PULSE 59
== END 2021-09-13 14:24 | disposition home or self-care (01) ==
LOC: OR 08:13
PROVIDERS: ATTEND Surgery Plastic and Reconstructive Surgery
DX: K80.10 Calculus of gallbladder with chronic cholecystitis without obstruction (principal); I11.9 Hypertensive heart disease without heart failure; E78.5 Hyperlipidemia, unspecified; F32.9 Major depressive disorder, single episode, unspecified; E03.9 Hypothyroidism, unspecified; E66.01 Morbid (severe) obesity due to excess calories; K22.10 Ulcer of esophagus without bleeding; K66.0 Peritoneal adhesions (postprocedural) (postinfection); K76.0 Fatty (change of) liver, not elsewhere classified; K26.9 Duodenal ulcer, unspecified as acute or chronic, without hemorrhage or perforation; I83.90 Asymptomatic varicose veins of unspecified lower extremity; M19.90 Unspecified osteoarthritis, unspecified site; M48.061 Spinal stenosis, lumbar region without neurogenic claudication; R59.0 Localized enlarged lymph nodes; K29.80 Duodenitis without bleeding; K29.50 Unspecified chronic gastritis without bleeding; Z68.37 Body mass index [BMI] 37.0-37.9, adult; Z79.899 Other long term (current) drug therapy; Z86.718 Personal history of other venous thrombosis and embolism; Z87.440 Personal history of urinary (tract) infections; Z88.2 Allergy status to sulfonamides
CPT/HCPCS: 43235; 47562; S2900; 80053; 85025; 88304

== ENCOUNTER → 2021-11-08 | Outpatient (CLI) | payer MEDICARE | END | disposition home or self-care (01) | LOC: LABPAT 15:32 | PROVIDERS: ATTEND Surgery Plastic and Reconstructive Surgery | DX: Z03.818 Encounter for observation for suspected exposure to other biological agents ruled out (principal) | CPT/HCPCS: U0003; C9803; U0005 ==

== ENCOUNTER 2021-11-13 07:16 | Day surgery (SDC) | payer MEDICARE ==
[2021-11-08 14:56] VITALS: BMI 37.2
[~2021-11-13 07:16] MED LIST changes: -ACETAMINOPHEN TAB 500 MG TAB PO PRN; -DEXAMETHASONE SOD PHOSPHATE 4 MG/ML 1 ML VIAL IV ONE; -GABAPENTIN 300 MG CAP PO PRN; -HEPARIN SODIUM,PORCINE/PF 5,000 UNIT/0.5 ML SYRINGE SQ PRN; -HYDROmorphone 0.5 MG/0.5 ML SYRINGE IVP PRN; -INDOCYANINE GREEN 25 MG VIAL IV STA; +LIDOCAINE 1% (10MG/ML) FOR IV START INTRADERMA PRN; -MIDAZOLAM 2 MG/2 ML VIAL IV PRN; -ONDANSETRON 4 MG/2 ML VIAL IVP ONE
[2021-11-13 07:48] VITALS: TEMP 97.8
[2021-11-13] MEDS ORDERED: PROPOFOL 10 MG/ML 20 ML VIAL IV ONE (08:25)
[2021-11-13] MEDS ORDERED: LIDOCAINE 1% INJ 10MG/ML (20 ML MDV) ONE (08:25)
--- NOTE | 2021-11-13 08:28 | P.GSHP ---
History of Present Illness H&P Date: 11/13/21 CHIEF COMPLAINT: Duodenal ulcer HISTORY OF PRESENT ILLNESS: The patient is a 81-year-old female who presents reports gastroesophageal reflux disease. Upper endoscopy was offered for further evaluation and management. PAST MEDICAL HISTORY: Please see list. PAST SURGICAL HISTORY: Please see list. MEDICATIONS: Please see list. ALLERGIES: Please see list. SOCIAL HISTORY: No illicit drug use FAMILY HISTORY: No reports of Crohn disease or ulcerative colitis. REVIEW OF ORGAN SYSTEMS: CONSTITUTIONAL: No reports of fevers or chills. GI: Denies any blood in stools or constipation. PHYSICAL EXAM: VITAL SIGNS: Stable GENERAL: Well-developed and pleasant in no acute distress. HEENT: No scleral icterus. Extraocular movements grossly intact. Moist buccal mucosa. NECK: Supple without lymphadenopathy. CHEST: Unlabored respirations. Equal bilateral excursions. CARDIOVASCULAR: Regular rate and rhythm. Distal 2+ pulses. ABDOMEN: Soft, nondistended. MUSCULOSKELETAL: No clubbing, cyanosis, or edema. ASSESSMENT: 1. Gastroesophageal reflux disease PLAN: 1. Recommend proceeding with an upper endoscopy Past Medical History Past Medical History: Cancer, Deep Vein Thrombosis (DVT), Hyperlipidemia, Hypertension, Osteoarthritis (OA), Thyroid Disorder Additional Past Medical History / Comment(s): HX DVT 2008., chronic UTI's, varicose veins, constipation, hx "ischemic colitis" 2010, skin cancer, SPINAL STENOSIS, NT left LEG/FOOT- USES WALKER., collapsed tendon left foot., ?duodenal ulcer History of Any Multi-Drug Resistant Organisms: None Reported Past Surgical History: Bladder Surgery, Cholecystectomy, Hysterectomy, Joint Replacement, Orthopedic Surgery Additional Past Surgical History / Comment(s): Parathyroidectomy, Bladder suspension, smita and screws right femur. Cortisone injection, pain clinic procedures. rt hip replacement, rt knee replacement 06/2021, lakisha cataracts., lap jasvir with EGD 09/13/21 Past Anesthesia/Blood Transfusion Reactions: No Reported Reaction Past Psychological History: Depression Smoking Status: Never smoker Past Alcohol Use History: None Reported Past Drug Use History: None Reported - Past Family History Father Family Medical History: Cancer Additional Family Medical History / Comment(s): LUNG CANCER Mother Family Medical History: Cancer Additional Family Medical History / Comment(s): Breast Cancer. Medications and Allergies Home Medications Medication Instructions Recorded Confirmed Type Levothyroxine Sodium [Synthroid] 112 mcg PO DAILY 02/22/18 11/13/21 History Methenamine Hippurate [Hiprex] 1 gm PO QID 09/08/18 11/13/21 History Metoprolol Tartrate [Lopressor] 25 mg PO BID 09/08/18 11/13/21 History Vit C/E/Zn/Coppr/Lutein/Zeaxan 2 tab PO W/SUPPER 02/22/19 11/13/21 History [Preservision Areds 2 Softgel] hydroCHLOROthiazide 25 mg PO DAILY 03/21/19 11/13/21 History DULoxetine HCL [Cymbalta] 60 mg PO DAILY 11/19/20 11/13/21 History Pravastatin Sodium [Pravachol] 20 mg PO HS 01/10/21 11/13/21 History Trimethoprim 100 mg PO DAILY 01/23/21 11/13/21 History Losartan Potassium [Cozaar] 100 mg PO DAILY 06/25/21 11/13/21 History Cholecalciferol [Vitamin D3 (25 50 mcg PO DAILY 07/17/21 11/13/21 History Mcg = 1000 Iu)] Menthol [Biofreeze] 1 applic TOPICAL DIRECTED PRN 09/10/21 11/13/21 History Ascorbic Acid [Vitamin C] 500 mg PO DAILY 11/08/21 11/13/21 History Multivit with Calcium,Iron,Min 1 each PO DAILY 11/08/21 11/13/21 History [Women's Multivitamin] Psyllium Husk (with Sugar) 0 gm PO DIRECTED 11/08/21 11/13/21 History [Metamucil Powder] Allergies Allergy/AdvReac Type Severity Reaction Status Date / Time Sulfa (Sulfonamide Allergy Rash/Hives Verified 11/13/21 07:40 Antibiotics) Surgical - Exam Vital Signs Temp Pulse Resp BP Pulse Ox 97.8 F 64 18 142/81 95 11/13/21 07:46 11/13/21 07:46 11/13/21 07:46 11/13/21 07:46 11/13/21 07:46
[2021-11-13] MEDS ORDERED: IV FLUID CONTINUATION 1,000 ML IV ONE (08:41)
[2021-11-13 08:46] VITALS: RESP 16
[2021-11-13 08:55] VITALS: BP 125/70; PULSE 73
--- NOTE | 2021-11-13 09:19 | P.PCN ---
Date of Procedure: 11/13/21 Description of Procedure: PREOPERATIVE DIAGNOSIS: Duodenal ulcer POSTOPERATIVE DIAGNOSIS: Gastritis. Duodenal ulcer with obstruction Gastroesophageal reflux disease. Diaphragmatic hiatal hernia OPERATION: Esophagogastroduodenoscopy with biopsies along antrum and duodenum SURGEON: Tejal Pulido MD ANESTHESIA: MAC. INDICATIONS: The patient is a 81-year-old female who presents with history of duodenal ulcer. Benefits and risks of the procedure were described. Informed consent was obtained. DESCRIPTION: The patient was brought into the endoscopy suite and laid in the left lateral decubitus position. An Olympus gastroscope was passed along the posterior oropharynx down to the distal esophagus where the squamocolumnar junction was encountered at 37 cm from the incisors. The stomach was entered and no bile reflux was found. Additional findings are listed below. Biopsies with cold forceps were obtained of the antrum. The first through third portion of the duodenum was examined. Retroflexion of the scope confirmed Hill grade 3 lower esophageal valve. The squamocolumnar junction demonstrated LA grade B erosive esophagitis. The stomach was desufflated. The patient tolerated the procedure well. FINDINGS: Squamocolumnar junction 37 cm from the incisors. Diaphragmatic hiatus at 40 cm. Hiatal hernia, 3 cm Hill grade 3 lower esophageal valve. LA grade B erosive esophagitis. Duodenal ulcer with mild stenosis/partial obstruction second portion Chronic gastritis RECOMMENDATIONS: 1. Omeprazole 40 mg daily for 1 month 2. Carafate 1 g twice a day for 1 month Plan - Discharge Summary New Discharge Prescriptions: New Sucralfate [Carafate] 1 gm PO BID #60 tablet Omeprazole [PriLOSEC] 40 mg PO DAILY #60 cap Continue Levothyroxine Sodium [Synthroid] 112 mcg PO DAILY Metoprolol Tartrate [Lopressor] 25 mg PO BID Methenamine Hippurate [Hiprex] 1 gm PO QID Vit C/E/Zn/Coppr/Lutein/Zeaxan [Preservision Areds 2 Softgel] 2 tab PO W/SUPPER hydroCHLOROthiazide 25 mg PO DAILY DULoxetine HCL [Cymbalta] 60 mg PO DAILY Pravastatin Sodium [Pravachol] 20 mg PO HS Trimethoprim 100 mg PO DAILY Losartan Potassium [Cozaar] 100 mg PO DAILY Cholecalciferol [Vitamin D3 (25 Mcg = 1000 Iu)] 50 mcg PO DAILY Menthol [Biofreeze] 1 applic TOPICAL DIRECTED PRN PRN Reason: Pain Multivit with Calcium,Iron,Min [Women's Multivitamin] 1 each PO DAILY Ascorbic Acid [Vitamin C] 500 mg PO DAILY Psyllium Husk (with Sugar) [Metamucil Powder] 0 gm PO DIRECTED Discharge Medication List Levothyroxine Sodium [Synthroid] 112 mcg PO DAILY 02/22/18 [History] Methenamine Hippurate [Hiprex] 1 gm PO QID 09/08/18 [History] Metoprolol Tartrate [Lopressor] 25 mg PO BID 09/08/18 [History] Vit C/E/Zn/Coppr/Lutein/Zeaxan [Preservision Areds 2 Softgel] 2 tab PO W/SUPPER 02/22/19 [History] hydroCHLOROthiazide 25 mg PO DAILY 03/21/19 [History] DULoxetine HCL [Cymbalta] 60 mg PO DAILY 11/19/20 [History] Pravastatin Sodium [Pravachol] 20 mg PO HS 01/10/21 [History] Trimethoprim 100 mg PO DAILY 01/23/21 [History] Losartan Potassium [Cozaar] 100 mg PO DAILY 06/25/21 [History] Cholecalciferol [Vitamin D3 (25 Mcg = 1000 Iu)] 50 mcg PO DAILY 07/17/21 [History] Menthol [Biofreeze] 1 applic TOPICAL DIRECTED PRN 09/10/21 [History] Ascorbic Acid [Vitamin C] 500 mg PO DAILY 11/08/21 [History] Multivit with Calcium,Iron,Min [Women's Multivitamin] 1 each PO DAILY 11/08/21 [History] Psyllium Husk (with Sugar) [Metamucil Powder] 0 gm PO DIRECTED 11/08/21 [History] Omeprazole [PriLOSEC] 40 mg PO DAILY #60 cap 11/13/21 [Rx] Sucralfate [Carafate] 1 gm PO BID #60 tablet 11/13/21 [Rx] Follow up Appointment(s)/Referral(s): Tejal Pulido MD [STAFF PHYSICIAN] - 11/26/21 Patient Instructions/Handouts: Peptic Ulcer (DC), Diet for Stomach Ulcers and Gastritis (ED) Discharge Disposition: HOME SELF-CARE
== END 2021-11-13 09:52 | disposition home or self-care (01) ==
LOC: ORWHC2ENDO 07:16
PROVIDERS: ATTEND Surgery Plastic and Reconstructive Surgery
DX: K26.9 Duodenal ulcer, unspecified as acute or chronic, without hemorrhage or perforation (principal); K29.50 Unspecified chronic gastritis without bleeding; K31.5 Obstruction of duodenum; K44.9 Diaphragmatic hernia without obstruction or gangrene; E78.5 Hyperlipidemia, unspecified; I10 Essential (primary) hypertension; M19.90 Unspecified osteoarthritis, unspecified site; E07.9 Disorder of thyroid, unspecified; Z86.718 Personal history of other venous thrombosis and embolism; Z87.440 Personal history of urinary (tract) infections; I83.90 Asymptomatic varicose veins of unspecified lower extremity; Z90.49 Acquired absence of other specified parts of digestive tract; Z90.710 Acquired absence of both cervix and uterus; Z96.651 Presence of right artificial knee joint; Z96.641 Presence of right artificial hip joint; Z98.42 Cataract extraction status, left eye; Z98.41 Cataract extraction status, right eye; Z98.890 Other specified postprocedural states; F32.A Depression, unspecified; Z80.1 Family history of malignant neoplasm of trachea, bronchus and lung; Z80.3 Family history of malignant neoplasm of breast; Z79.890 Hormone replacement therapy; Z79.899 Other long term (current) drug therapy; Z88.2 Allergy status to sulfonamides
CPT/HCPCS: 88305; 43239; J2001; J2704

== ENCOUNTER 2022-04-03 13:21 | Emergency (ER) | payer MEDICARE ==
[2022-04-03 13:49] VITALS: TEMP 97.7
--- NOTE | 2022-04-03 18:52 | ED ---
Extremity Problem HPI - General Chief complaint: Extremity Problem,Nontraumatic Stated complaint: L leg/foot swelling Time Seen by Provider: 04/03/22 18:12 Source: patient, family, RN notes reviewed Mode of arrival: ambulatory Limitations: no limitations - History of Present Illness Initial comments: This is an 82-year-old female who presents to the emergency department for swelling in the left foot and ankle. Patient states that this started 2 days a go and she has never had a problem like this before. States that it is painful if she tries to stand. Denies any known injury. Denies any history of congestive heart failure. She does have known chronic kidney disease stage III. She also notes osteoarthritis causing chronic pain in the whole left leg. Denies any fevers, chills, sore throat, cough, dyspnea, chest pain, palpitations, abdominal pain, nausea, vomiting, diarrhea, back pain, or headaches. MD Complaint: extremity pain, extremity swelling Onset/Timin -: days(s) Location: left, lower extremity History of Same: No Radiation: proximal Associated Symptoms: denies other symptoms - Related Data Home Medications Medication Instructions Recorded Confirmed Levothyroxine Sodium [Synthroid] 112 mcg PO DAILY 02/22/18 11/13/21 Methenamine Hippurate [Hiprex] 1 gm PO QID 09/08/18 11/13/21 Metoprolol Tartrate [Lopressor] 25 mg PO BID 09/08/18 11/13/21 Vit C/E/Zn/Coppr/Lutein/Zeaxan 2 tab PO W/SUPPER 02/22/19 11/13/21 [Preservision Areds 2 Softgel] hydroCHLOROthiazide 25 mg PO DAILY 03/21/19 11/13/21 DULoxetine HCL [Cymbalta] 60 mg PO DAILY 11/19/20 11/13/21 Pravastatin Sodium [Pravachol] 20 mg PO HS 01/10/21 11/13/21 Trimethoprim 100 mg PO DAILY 01/23/21 11/13/21 Losartan Potassium [Cozaar] 100 mg PO DAILY 06/25/21 11/13/21 Cholecalciferol [Vitamin D3 (25 50 mcg PO DAILY 07/17/21 11/13/21 Mcg = 1000 Iu)] Menthol [Biofreeze] 1 applic TOPICAL DIRECTED PRN 09/10/21 11/13/21 Ascorbic Acid [Vitamin C] 500 mg PO DAILY 11/08/21 11/13/21 Multivit with Calcium,Iron,Min 1 each PO DAILY 11/08/21 11/13/21 [Women's Multivitamin] Psyllium Husk (with Sugar) 0 gm PO DIRECTED 11/08/21 11/13/21 [Metamucil Powder] Previous Rx's Medication Instructions Recorded Omeprazole [PriLOSEC] 40 mg PO DAILY #60 cap 11/13/21 Sucralfate [Carafate] 1 gm PO BID #60 tablet 11/13/21 Allergies Allergy/AdvReac Type Severity Reaction Status Date / Time Sulfa (Sulfonamide Allergy Rash/Hives Verified 04/03/22 13:49 Antibiotics) Review of Systems ROS Statement: Those systems with pertinent positive or pertinent negative responses have been documented in the HPI. ROS Other: All systems not noted in ROS Statement are negative. Past Medical History Past Medical History: Cancer, Deep Vein Thrombosis (DVT), Hyperlipidemia, Hypertension, Osteoarthritis (OA), Thyroid Disorder Additional Past Medical History / Comment(s): HX DVT 2008., chronic UTI's, varicose veins, constipation, hx "ischemic colitis" 2010, skin cancer, SPINAL STENOSIS, NT left LEG/FOOT- USES WALKER., collapsed tendon left foot., ?duodenal ulcer History of Any Multi-Drug Resistant Organisms: None Reported Past Surgical History: Bladder Surgery, Cholecystectomy, Hysterectomy, Joint Replacement, Orthopedic Surgery Additional Past Surgical History / Comment(s): Parathyroidectomy, Bladder suspension, smita and screws right femur. Cortisone injection, pain clinic procedures. rt hip replacement, rt knee replacement 06/2021, lakisha cataracts., lap jasvir with EGD 09/13/21 Past Anesthesia/Blood Transfusion Reactions: No Reported Reaction Past Psychological History: Depression Smoking Status: Never smoker Past Alcohol Use History: None Reported Past Drug Use History: None Reported - Past Family History Father Family Medical History: Cancer Additional Family Medical History / Comment(s): LUNG CANCER Mother Family Medical History: Cancer Additional Family Medical History / Comment(s): Breast Cancer. General Exam Limitations: no limitations General appearance: alert, in no apparent distress Head exam: Present: atraumatic, normocephalic, normal inspection Respiratory exam: Present: normal lung sounds bilaterally. Absent: respiratory distress, wheezes, rales, rhonchi, stridor Cardiovascular Exam: Present: regular rate, normal rhythm, normal heart sounds. Absent: systolic murmur, diastolic murmur, rubs, gallop, clicks Extremities exam: Present: other (Pitting edema to the left ankle, increased at the lateral aspect. Mild tender to palpation of the left calf. No erythema or increased heat. 2+ dorsalis pedis and tibialis posterior pulses bilaterally. Capillary refill less than 1 second.) Neurological exam: Present: alert, oriented X3, CN II-XII intact Psychiatric exam: Present: normal affect, normal mood Skin exam: Present: other (Venous stasis changes in the bilateral lower extremities.) Course Vital Signs 04/03/22 04/03/22 13:41 19:24 Temperature 97.7 F Pulse Rate 60 56 L Respiratory 16 18 Rate Blood Pressure 151/65 137/105 O2 Sat by Pulse 97 97 Oximetry Medical Decision Making - Medical Decision Making This is an 82-year-old female who presents to the emergency department for left foot swelling. X-ray of the left foot and ankle obtained revealing no acute irregularities. Lab work was also nonactionable. Given her history of blood clots, a duplex ultrasound of the lower extremity was also obtained, revealing no abnormalities. Discussed that we don't have a clear etiology for her symptoms at this time. The fluid collection appears to be just localized to the ankle. Instructed her to keep the leg elevated above heart level, and to wrap it with an Kleber bandage or to wear compression stockings. Also instructed her to reduce sodium intake. She will follow up with her primary care provider in a few days, and if symptoms persist, her dose of hydrochlorothiazide may need to be increased, or she may need an additional diuretic. Return precautions reviewed in depth, the patient is instructed to return to the emergency department with any new, worsening, or concerning symptoms. Patient verbalized understanding. This case was discussed in detail with the attending ED physician. Presentation, findings, and treatment plan discussed in detail as well. - Lab Data Result diagrams: 04/03/22 19:23 04/03/22: Lab Results 04/03/22 04/03/22 04/03/22 Range/Units 19: 19: 19: WBC 5.9 (3.8-10.6) k/uL RBC 4.30 (3.80-5.40) m/uL Hgb 13.3 (11.4-16.0) gm/dL Hct 41.0 (34.0-46.0) % MCV 95.5 (80.0-100.0) fL MCH 31.0 (25.0-35.0) pg MCHC 32.4 (31.0-37.0) g/dL RDW 13.7 (11.5-15.5) % Plt Count 258 (150-450) k/uL MPV 7.5 Neutrophils % 48 % Lymphocytes % 32 % Monocytes % 10 % Eosinophils % 5 % Basophils % 1 % Neutrophils # 2.8 (1.3-7.7) k/uL Lymphocytes # 1.9 (1.0-4.8) k/uL Monocytes # 0.6 (0-1.0) k/uL Eosinophils # 0.3 (0-0.7) k/uL Basophils # 0.1 (0-0.2) k/uL Sodium 139 (137-145) mmol/L Potassium 4.2 (3.5-5.1) mmol/L Chloride 102 (98-107) mmol/L Carbon Dioxide 31 H (22-30) mmol/L Anion Gap 6 mmol/L BUN 25 H (7-17) mg/dL Creatinine 0.93 (0.52-1.04) mg/dL Est GFR (CKD-EPI)AfAm 67 (>60 ml/min/1.73 sqM) Est GFR (CKD-EPI)NonAf 58 (>60 ml/min/1.73 sqM) Glucose 103 H (74-99) mg/dL Calcium 10.1 (8.4-10.2) mg/dL Total Bilirubin 0.4 (0.2-1.3) mg/dL AST 22 (14-36) U/L ALT 14 (4-34) U/L Alkaline Phosphatase 82 (38-126) U/L Troponin I (0.000-0.034) ng/mL NT-Pro-B Natriuret Pep 438 pg/mL Total Protein 7.1 (6.3-8.2) g/dL Albumin 4.2 (3.5-5.0) g/dL Urine Color Urine Appearance (Clear) Urine pH (5.0-8.0) Ur Specific [place] (1.001-1.035) Urine Protein (Negative) Urine Glucose (UA) (Negative) Urine Ketones (Negative) Urine Blood (Negative) Urine Nitrite (Negative) Urine Bilirubin (Negative) Urine Urobilinogen (<2.0) mg/dL Ur Leukocyte Esterase (Negative) Urine RBC (0-5) /hpf Urine WBC (0-5) /hpf Ur Squamous Epith Cells (0-4) /hpf Urine Bacteria (None) /hpf Urine Mucus (None) /hpf 04/03/22 04/03/22 Range/Units 19:23 19:50 WBC (3.8-10.6) k/uL RBC (3.80-5.40) m/uL Hgb (11.4-16.0) gm/dL Hct (34.0-46.0) % MCV (80.0-100.0) fL MCH (25.0-35.0) pg MCHC (31.0-37.0) g/dL RDW (11.5-15.5) % Plt Count (150-450) k/uL MPV Neutrophils % % Lymphocytes % % Monocytes % % Eosinophils % % Basophils % % Neutrophils # (1.3-7.7) k/uL Lymphocytes # (1.0-4.8) k/uL Monocytes # (0-1.0) k/uL Eosinophils # (0-0.7) k/uL Basophils # (0-0.2) k/uL Sodium (137-145) mmol/L Potassium (3.5-5.1) mmol/L Chloride (98-107) mmol/L Carbon Dioxide (22-30) mmol/L Anion Gap mmol/L BUN (7-17) mg/dL Creatinine (0.52-1.04) mg/dL Est GFR (CKD-EPI)AfAm (>60 ml/min/1.73 sqM) Est GFR (CKD-EPI)NonAf (>60 ml/min/1.73 sqM) Glucose (74-99) mg/dL Calcium (8.4-10.2) mg/dL Total Bilirubin (0.2-1.3) mg/dL AST (14-36) U/L ALT (4-34) U/L Alkaline Phosphatase (38-126) U/L Troponin I <0.012 (0.000-0.034) ng/mL NT-Pro-B Natriuret Pep pg/mL Total Protein (6.3-8.2) g/dL Albumin (3.5-5.0) g/dL Urine Color Light Yellow Urine Appearance Clear (Clear) Urine pH 7.0 (5.0-8.0) Ur Specific [place] 1.014 (1.001-1.035) Urine Protein Negative (Negative) Urine Glucose (UA) Negative (Negative) Urine Ketones Negative (Negative) Urine Blood Negative (Negative) Urine Nitrite Negative (Negative) Urine Bilirubin Negative (Negative) Urine Urobilinogen <2.0 (<2.0) mg/dL Ur Leukocyte Esterase Small H (Negative) Urine RBC 3 (0-5) /hpf Urine WBC 12 H (0-5) /hpf Ur Squamous Epith Cells <1 (0-4) /hpf Urine Bacteria Occasional H (None) /hpf Urine Mucus Rare H (None) /hpf - Radiology Data Radiology results: report reviewed, image reviewed Disposition Clinical Impression: Pitting edema Disposition: HOME SELF-CARE Instructions (If sedation given, give patient instructions): Leg Edema (ED) Additional Instructions: Return to the emergency department with any new, worsening, or concerning symptoms. Keep your legs elevated above heart level, avoid excess salt intake, and wrap the leg. Follow up with your primary care provider in 1-2 days. Is patient prescribed a controlled substance at d/c from ED?: No Referrals: John Mirza [Primary Care Provider] - 1-2 days
--- NOTE | 2022-04-03 19:17 | XR ---
EXAMINATION TYPE: XR ankle complete LT, XR foot complete LT DATE OF EXAM: 04/03/2022 6:44 PM INDICATION: Patient age:Female; 82 years old; Reason for study: Swelling; COMPARISON: None TECHNIQUE: The left ankle is imaged in frontal and lateral and oblique projections. The left foot was examined in AP lateral and oblique views. FINDINGS: There is no evidence of acute osseous pathology. The joint spaces are well-preserved without evidenc e of subluxation or dislocation. Kager's fat pad is intact. Soft tissues are within normal limits. No radiopaque foreign bodies are identified. Calcaneal plantar spurring with pes planus noted. Scattere d multifocal osteoarthrosis changes. Patchy osseous demineralization is noted. IMPRESSION: 1. No evidence of acute fracture. 2. Pes planus.
[2022-04-03 19:25] VITALS: BP 137/105; PULSE 56; RESP 18
[2022-04-03 19:41] LABS: Basophils # (A) 0.1 k/uL (0-0.2); Basophils % (A) 1 %; Eosinophils # (A) 0.3 k/uL (0-0.7); Eosinophils % (A) 5 %; HGB 13.3 gm/dL (11.4-16.0); Lymphocytes # (A) 1.9 k/uL (1.0-4.8); Lymphocytes % (A) 32 %; MCHC 32.4 g/dL (31.0-37.0); MCV 95.5 fL (80.0-100.0); Mean Platelet Volume 7.5; Monocytes # (A) 0.6 k/uL (0-1.0); Monocytes % (A) 10 %; Neutrophils # (A) 2.8 k/uL (1.3-7.7); Neutrophils % (A) 48 %; Platelet Count 258 k/uL (150-450); RDW 13.7 % (11.5-15.5); WBC 5.9 k/uL (3.8-10.6)
[2022-04-03 19:52] LABS: Albumin 4.2 g/dL (3.5-5.0); Calcium 10.1 mg/dL (8.4-10.2); Potassium 4.2 mmol/L (3.5-5.1); Total Bilirubin 0.4 mg/dL (0.2-1.3); Total Protein 7.1 g/dL (6.3-8.2)
[2022-04-03 20:24] LABS: Appearance,Urine Clear (Clear); Bacteria,Urine Occasional /hpf; Bilirubin,Urine Negative (Negative); Blood,Urine Negative (Negative); Color,Urine Light Yellow; Glucose,Urine (UA) Negative (Negative); Ketones,Urine Negative (Negative); Leukocyte Esterase,Urine Small (Negative); Mucus,Urine Rare /hpf; Nitrite,Urine Negative (Negative); Protein,Urine Negative (Negative); RBC,Urine 3 /hpf (0-5); Specific Gravity,Urine 1.014 (1.001-1.035); Squamous Epithelial Cell,Urine <1 /hpf (0-4); Urobilinogen,Urine <2.0 mg/dL (<2.0); WBC,Urine 12 /hpf (0-5)
--- NOTE | 2022-04-03 21:00 | US ---
EXAMINATION TYPE: US venous doppler duplex LE LT DATE OF EXAM: 04/03/2022 8:52 PM COMPARISON: 2019 CLINICAL HISTORY: Swelling, hx of DVT. Hx of left lower extremity DVT 2008. Swelling SIDE PERFORMED: Left TECHNIQUE: The lower extremity deep venous system is examined utilizing real time linear array sonog bonita with graded compression, doppler sonography and color-flow sonography. VESSELS IMAGED: Common Femoral Vein Deep Femoral Vein Greater Saphenous Vein * Femoral Vein Popliteal Vein Small Saphenous Vein * Proximal Calf Veins (* superficial vessels) Grayscale, color doppler, spectral doppler imaging performed of the deep veins of the lower extremiti es. There is normal flow, compressibility, vascular waveforms. Left Leg: Negative for DVT; there is a 6.0 x 2.0 x 2.5 cm cystic area seen in the left popliteal fos sa - area was previously seen in 2020. Left lower extremity subcutaneous edema. IMPRESSION: 1. No evidence of deep vein thrombosis of the left lower extremity. 2. Left Popliteal fossa cyst. 3. Left lower extremity edema.
== END 2022-04-03 22:14 | disposition home or self-care (01) ==
LOC: EC 13:21
DX: R60.9 Edema, unspecified (principal); E78.5 Hyperlipidemia, unspecified; I10 Essential (primary) hypertension; E07.9 Disorder of thyroid, unspecified; Z79.899 Other long term (current) drug therapy; Z88.2 Allergy status to sulfonamides
CPT/HCPCS: 36415; 80053; 81001; 83880; 84484; 85025; 87086; 99284

== ENCOUNTER 2022-05-27 14:50 | Emergency (ER) | payer MEDICARE ==
[2022-05-27 15:26] VITALS: BP 126/69; PULSE 71; RESP 18; TEMP 98.1
--- NOTE | 2022-05-27 16:14 | US ---
EXAMINATION TYPE: US venous doppler duplex LE LT DATE OF EXAM: 05/27/2022 3:57 PM COMPARISON: NONE CLINICAL HISTORY: r/o DVT. SIDE PERFORMED: Left TECHNIQUE: The lower extremity deep venous system is examined utilizing real time linear array sonog bonita with graded compression, doppler sonography and color-flow sonography. VESSELS IMAGED: Common Femoral Vein Deep Femoral Vein Greater Saphenous Vein * Femoral Vein Popliteal Vein Small Saphenous Vein * Proximal Calf Veins, not seen (* superficial vessels) Morbidly obese patient. Technically difficult. Left Leg: Negative for DVT, Grayscale, color doppler, spectral doppler imaging performed of the deep veins of the lower extremities. There is normal flow, compressibility, vascular waveforms. IMPRESSION: No evidence for deep vein thrombus of the left lower extremity.
== END 2022-05-27 17:30 | disposition left against medical advice (07) ==
LOC: EC 14:50
DX: Z53.21 Procedure and treatment not carried out due to patient leaving prior to being seen by health care provider (principal)
CPT/HCPCS: 99499

== ENCOUNTER → 2022-05-29 | Outpatient (CLI) | payer MEDICARE | END | disposition home or self-care (01) | LOC: LABPAT 13:15 | PROVIDERS: ATTEND Orthopaedic Surgery | DX: Z01.812 Encounter for preprocedural laboratory examination (principal); M17.12 Unilateral primary osteoarthritis, left knee; Z22.322 Carrier or suspected carrier of Methicillin resistant Staphylococcus aureus | CPT/HCPCS: 87070 ==

== ENCOUNTER 2022-06-03 08:41 | Observation (INO) | payer MEDICARE ==
[2022-05-30 12:05] VITALS: BMI 38.0
--- NOTE | 2022-06-02 09:14 | P.HPOR ---
History of Present Illness H&P Date: 06/02/22 Chief Complaint: Left knee pain The patient's knee due to-year-old retired female who presents to progressive left knee pain for the past several years worsening recently. She's tried conservative measures to include medications, activity modification, and injections. She notes daily pain that limits her function and activities. Review of Systems As per HPI Past Medical History Past Medical History: Cancer, Deep Vein Thrombosis (DVT), Hyperlipidemia, Hypertension, Osteoarthritis (OA), Thyroid Disorder Additional Past Medical History / Comment(s): HX DVT 2008., chronic UTI's, varicose veins, constipation, hx "ischemic colitis" 2010, skin cancer, SPINAL STENOSIS, NT left LEG/FOOT- USES WALKER., collapsed tendon left foot., ?duodenal ulcer History of Any Multi-Drug Resistant Organisms: None Reported Past Surgical History: Bladder Surgery, Cholecystectomy, Hysterectomy, Joint Replacement, Orthopedic Surgery Additional Past Surgical History / Comment(s): Parathyroidectomy, Bladder suspension, smita and screws right femur. Cortisone injection, pain clinic procedures. rt hip replacement, rt knee replacement 06/2021, lakisha cataracts., lap jasvir with EGD 09/13/21 Past Anesthesia/Blood Transfusion Reactions: No Reported Reaction Smoking Status: Never smoker - Past Family History Father Family Medical History: Cancer Additional Family Medical History / Comment(s): LUNG CANCER Mother Family Medical History: Cancer Additional Family Medical History / Comment(s): Breast Cancer. Medications and Allergies Home Medications Medication Instructions Recorded Confirmed Type Levothyroxine Sodium [Synthroid] 112 mcg PO DAILY 02/22/18 05/30/22 History Methenamine Hippurate [Hiprex] 1 gm PO QID 09/08/18 05/30/22 History Metoprolol Tartrate [Lopressor] 25 mg PO BID 09/08/18 05/30/22 History Vit C/E/Zn/Coppr/Lutein/Zeaxan 2 tab PO W/SUPPER 02/22/19 05/30/22 History [Preservision Areds 2 Softgel] hydroCHLOROthiazide 25 mg PO DAILY 03/21/19 05/30/22 History DULoxetine HCL [Cymbalta] 60 mg PO DAILY 11/19/20 05/30/22 History Pravastatin Sodium [Pravachol] 20 mg PO HS 01/10/21 05/30/22 History Trimethoprim 100 mg PO DAILY 01/23/21 05/30/22 History Losartan Potassium [Cozaar] 100 mg PO DAILY 06/25/21 05/30/22 History Cholecalciferol [Vitamin D3 (25 50 mcg PO DAILY 07/17/21 05/30/22 History Mcg = 1000 Iu)] Menthol [Biofreeze] 1 applic TOPICAL DIRECTED PRN 09/10/21 05/30/22 History Ascorbic Acid [Vitamin C] 500 mg PO DAILY 11/08/21 05/30/22 History Multivit with Calcium,Iron,Min 1 each PO DAILY 11/08/21 05/30/22 History [Women's Multivitamin] Psyllium Husk (with Sugar) 0 gm PO DIRECTED 11/08/21 05/30/22 History [Metamucil Powder] Sucralfate [Carafate] 1 gm PO BID #60 tablet 11/13/21 05/30/22 Rx Hydrocodone/Acetaminophen 1 tab PO Q6HR PRN 05/30/22 05/30/22 History [Hydrocodone/Acetaminophen 5-325] busPIRone HCL 10 mg PO BID 05/30/22 05/30/22 History Allergies Allergy/AdvReac Type Severity Reaction Status Date / Time Sulfa (Sulfonamide Allergy Rash/Hives Verified 05/30/22 11:34 Antibiotics) Physical Examination - Knee left Appearance: effusion Effusion grade: grade 1 Valgus alignment in stance: 10 degrees Tenderness with palpation: lateral Pain: with flexion Gait: limping ROM: extension: -15 degrees ROM: flexion: 90 degrees Strength: extension: 5/5 Strength: flexion: 5/5 Meniscal tests: lateral meniscal tests: positive Results The patient is a well-developed well-nourished female approximately 5 foot 1, 200 pounds. HEENT exam is nonfocal, neck is supple. She has painless passive motion of her left hip. Straight leg raise is negative. Her distal neurovascular exam appears intact in the left lower extremity. - Diagnostic results Knee x-ray: image reviewed (3 views of the left knee obtained in the office show severe lateral and patellofemoral compartment narrowing. Subchondral sclerosis and [id number] changes are noted.) Assessment and Plan Assessment: Left knee severe lateral and patellofemoral compartment osteoarthrosis Plan: I talked to the patient at length regarding her condition along with treatment options. She is quite limited because of pain related to her osteoporosis despite previous conservative measures. After a thorough discussion she opted to proceed with surgery. We'll plan to proceed with left total knee arthroplasty. Risks and benefits were discussed at length in layman's terms. Time with Patient: Less than 30
[~2022-06-03 08:41] MED LIST changes: +ACETAMINOPHEN TAB 500 MG TAB PO PRN; -LACTATED RINGERS 1,000 ML IV SCH; +MELOXICAM 7.5 MG TAB PO PRN; +ONDANSETRON 4 MG/2 ML VIAL IVP ONE; +TRANEXAMIC ACID IN NACL,ISO-OS 1,000 MG in SALINE 1 100ML.BAG IVPB PRN
[2022-06-03] MEDS: LACTATED RINGERS 1,000 ML IV SCH (09:44)
[2022-06-03] MEDS ORDERED: DEXAMETHASONE SOD PHOSPHATE 4 MG/ML 1 ML VIAL IV ONE (09:44)
[2022-06-03] MEDS: MIDAZOLAM 2 MG/2 ML VIAL IV ONE ×2 (10:07→10:28)
[2022-06-03] MEDS ORDERED: TRANEXAMIC ACID IN NACL,ISO-OS 1,000 MG/100 ML BAG ONE (10:25)
[2022-06-03] MEDS ORDERED: SODIUM CHLORIDE 0.9% (PF) 10 ML VIAL ONE (10:25)
[2022-06-03] MEDS ORDERED: PROPOFOL 10 MG/ML 20 ML VIAL IV ONE (10:25)
[2022-06-03] MEDS ORDERED: ROPIVACAINE 5 MG/ML 30 ML VIAL ONE (10:25)
[2022-06-03] MEDS ORDERED: fentaNYL (PF) 50 MCG/ML 2 ML AMP ONE (10:25)
[2022-06-03] MEDS ORDERED: ceFAZolin 1,000 MG in SODIUM CHLORIDE 0.9% 1,000 ML IRRIGATION ONE (11:08)
--- NOTE | 2022-06-03 12:01 | P.ANPRN ---
Procedure Note - Anesthesia - Nerve Block Performed Left Adductor Canal Time Out Performed: Yes (:) Date of Procedure: 06/03/22 Procedure Start Time: Procedure Stop Time: :16 Location of Patient: PreOp Indication: Acute Post-Operative Pain, Requested by Surgeon (Dr Duong) Sedation Type: Sedate with meaningful contact maintained Preparation: Sterile Prep, Sterile Dressing Position: Supine Catheter: Indwelling Needle Types: Pajunk Needle Gauge: 21 Ultrasound used to visualize needle placement: Yes Ultrasound used to observe medication spread: Yes Injectate: 0.5% Ropivacaine (see comment for volume) (15cc) Blood Aspirated: No Pain Paresthesia on Injection Noted: No Resistance on Injection: Normal Image Stored and Saved: Yes Events: Uneventful and Well Tolerated
--- NOTE | 2022-06-03 12:02 | P.ANPRN ---
Procedure Note - Anesthesia - Nerve Block Performed Left iPack Time Out Performed: Yes Date of Procedure: 06/03/22 Procedure Start Time: : Procedure Stop Time: Location of Patient: PreOp Indication: Acute Post-Operative Pain, Requested by Surgeon (Dr Duong) Sedation Type: Sedate with meaningful contact maintained Preparation: Sterile Prep Position: Supine Catheter: None Needle Types: Pajunk Needle Gauge: 21 Ultrasound used to visualize needle placement: Yes Ultrasound used to observe medication spread: Yes Injectate: 0.5% Ropivacaine (see comment for volume) (15cc + 5 cc PF Normal saline) Blood Aspirated: No Pain Paresthesia on Injection Noted: No Resistance on Injection: Normal Image Stored and Saved: Yes Events: Uneventful and Well Tolerated
[2022-06-03] MEDS ORDERED: NALOXONE 0.4 MG/ML 1 ML VIAL IV PRN (12:27)
[2022-06-03] MEDS ORDERED: HYDROmorphone 0.5 MG/0.5 ML SYRINGE IVP PRN (12:27)
[2022-06-03] MEDS ORDERED: HYDROcodone/APAP 5-325MG 1 EACH TAB PO PRN (12:27)
--- NOTE | 2022-06-03 12:53 | P.OP ---
Date of Procedure: 06/03/22 Preoperative Diagnosis: Left knee severe tricompartmental osteoarthrosis Postoperative Diagnosis: Same Procedure(s) Performed: Left total knee arthroplastycementedposterior stabilized Implants: Depuy Attune size 6 narrow cemented femoral component, size 5 cemented tibial component, 14 x 50 mm tibial stem, 11 mm articular surface, 35 mm cemented patellar component. This is a posterior stabilized implant. Anesthesia: regional, spinal Surgeon: Glenn Duong Florist Helper #1: Alfie Craig Estimated Blood Loss (ml): 50 Pathology: other (Bone fragments) Condition: stable Disposition: PACU Indications for Procedure: The patient's an 82-year-old female who presents progressive left knee pain along with deformity secondary to osteoarthrosis despite conservative measures. A discussion of the risks and benefits of operative intervention versus continued conservative measures was made with patient. She opted to proceed with surgery. Operative risks to include infection, neurovascular injury, development of blood clots, possible component loosening/failure need for subsequent procedures was discussed. Informed consent was obtained. Operative Findings: As below Description of Procedure: The patient was brought to the operating room, and after induction of spinal anesthesia the left lower extremity was prepped and draped in a normal fashion. The tourniquet was inflated to 270 mm marker. A longitudinal incision extending 3 finger breaths above the superior pole of patella extending to the medial aspect the tibial tubercle was then made. The skin and subcutaneous tissues were divided sharply. Electrocautery was used for hemostasis. A medial parapatellar arthrotomy was performed. The medial soft tissues to include the superficial and deep portions of the medial collateral ligament were elevated subperiosteally. The patella was everted. The lateral ligaments were elevated subperiosteally to include the LCL and popliteus off the lateral femoral ep icondyle with electrocautery. A portion of the retropatellar fat pad was excised sharply. The anterior cruciate ligament was sacrificed. Blunt retractors were placed. A starting hole was made in the distal femur 1 cm anterior to the posterior cruciate ligament origin. An intramedullary femoral guide was then inserted planning on 5 valgus distal cut with 9 mm distal resection. The cutting block was pinned in place. The distal cut was then made. The posterior referencing sizing guide was utilized. I felt size 6 narrow was most appropriate. 3 of external rotation was built into the system and verified off the trans-epicondylar axis and the posterior condyles. The cutting block was pinned in place. The anterior, posterior, and chamfer cuts then made. Bone fragments were removed. The intercondylar guide was placed and the notch cut was made with a sagittal saw. The bone block was removed in one fragment. The trial component was then placed. There is good anterior to poste rior and medial to lateral fit. The distal peg holes were drilled. The trial component was removed. Attention was then paid towards preparing the proximal femur. An extra medullary guide was utilized in line with the tibial shaft and second metatarsal distally. I planned on 6 mm resection from the medial compartment. The cutting block was pinned in place. The proximal tibial cut was then made. The bone was removed in one fragment. The remnants of the medial and lateral menisci were excised at the capsular junction with electrocautery. The tibia sized most appropriately at size 5. The trial femoral and tibial components were placed along with a 11 mm articular surface. I was able to obtain full flexion and extension with internal and external rotation. After several flexion and extension cycles, the tibial rotation was marked with electrocautery line with the medial one third of the tibial tubercle. Attention was then paid towards preparing the patella. A patella reamer was utilized taking stem to 14 mm of bone stock. A good flush cut was made. The patella sized most appropriately 35 mm. The peg holes were drilled. The trial components placed. I had good patellofemoral tracking with no hands technique. The trial components were then removed. The tibia was prepared in the appropriate rotation with appropriate drill and keel punch. The posterior osteophytes were removed with a curved osteotome. The flexion and extension gaps were checked and felt to be symmetric at 11 mm. A trial components were then removed. The bony surfaces were prepared with pulsatile lavage and dried. The tibial component was then cemented place was fully seated. Excess cement was removed. The femoral component cemented place and was fully seated. Excess cement was removed. The trial 11 mm articular surface was placed and the knee was put in full extension. The patella component was cemented place. After the cement had sufficiently hardened, the knee was again taken through a range of motion. Again I was able to obtain full flexion and extension with varus and valgus stress. The trial 11 mm articular surface was removed and the final one inserted. This was fully seated. Care was taken to avoid any soft tissue interposition. Pulsatile lavage was again utilized. The medial parapatellar arthrotomy was closed with #2 Ethibond suture. The tourniquet was deflated with approximately 65 minutes total tourniquet time. Final hemostasis was obtained with the cautery. There was minimal bleeding therefore a deep drain was not placed. The subcutaneous tissues were reapproximated with interrupted 2-0 Vicryl sutures. The skin was reapproximated with 3-0 subcuticular strata fix suture. Skin tape and adhesive was applied. A sterile dressing was applied. The patient was awoken from sedation and transferred to recovery room in good condition. Blood loss was estimated at 50 mL. No complications were incurred. Sponge and needle counts were correct at the end of the case. Alfie OH assisted during the major components of this case to include exposure, bone resection, implantation, and closure.
[2022-06-03] MEDS ORDERED: ROPIVACAINE 0.2%-NS ON-Q PUMP 1,090 MG, EMPTY PAIN BALL 1 EACH MISCELLANE PRN (13:05)
[2022-06-03] MEDS: HYDROmorphone 0.5 MG/0.5 ML SYRINGE IVP PRN ×3 (13:32→14:40)
--- NOTE | 2022-06-03 13:34 | XR ---
EXAMINATION TYPE: XR knee limited LT DATE OF EXAM: 06/03/2022 CLINICAL HISTORY: Left knee pain and arthritis status post total knee replacement. TECHNIQUE: Portable AP and crosstable lateral views of the left knee are obtained immediately postop eratively. COMPARISON: Outside left knee x-ray April 21, 2022 FINDINGS: Metallic hardware from total left knee arthroplasty is seen and appears satisfactory in al ignment and position. There is evidence of recent surgery with diffuse subcutaneous and soft tissue swelling noted. IMPRESSION: METALLIC HARDWARE FROM TOTAL LEFT KNEE ARTHROPLASTY IS SATISFACTORY IN ALIGNMENT.
[2022-06-03] MEDS ORDERED: METHYL SALICYLATE/MENTHOL CREAM 5 OZ TOPICAL PRN (20:32)
[2022-06-03] MEDS ORDERED: METHYL SALICYLATE-MENTHOL OINT (3 OZ TUBE) TOPICAL PRN (20:43)
[2022-06-03] MEDS: HYDROcodone/APAP 7.5-325MG 1 EACH TAB PO PRN (20:50)
[2022-06-03] MEDS: SENNOSIDES-DOCUSATE SODIUM 1 EACH TAB PO SCH (20:50)
--- NOTE | 2022-06-03 23:57 | P.CONS ---
History of Present Illness - Reason for Consult Consult date: 06/03/22 post op medical management - Chief Complaint left knee osteoarthritis - History of Present Illness 82 year old female with hypertension , hypothyroid , OA she was admitted to d for scheduled left total knee arthroplasty due to severe left knee OA, affecting daily ADLs , tolerated procedure well, no observed immediate post op complications. denies any chest pain , trouble breathing, nausea or vomiting. tolerated PO intake . she is passing urine with no issues. denies any abd pain. pain in her left knee is controlled and tolerated. Review of Systems Pertinent positives as noted in HPI. All other systems were reviewed and are negative Past Medical History Past Medical History: Cancer, Deep Vein Thrombosis (DVT), Hyperlipidemia, Hypertension, Osteoarthritis (OA), Thyroid Disorder Additional Past Medical History / Comment(s): HX DVT 2008., chronic UTI's, varicose veins, constipation, hx "ischemic colitis" 2010, skin cancer, SPINAL STENOSIS, NT left LEG/FOOT- USES WALKER., collapsed tendon left foot., ?duodenal ulcer History of Any Multi-Drug Resistant Organisms: None Reported Past Surgical History: Bladder Surgery, Cholecystectomy, Hysterectomy, Joint Replacement, Orthopedic Surgery Additional Past Surgical History / Comment(s): Parathyroidectomy, Bladder suspension, smita and screws right femur. Cortisone injection, pain clinic procedures. rt hip replacement, rt knee replacement 06/2021, lakisha cataracts., lap jasvir with EGD 09/13/21 Past Anesthesia/Blood Transfusion Reactions: No Reported Reaction Past Psychological History: Depression Smoking Status: Never smoker Past Alcohol Use History: None Reported Past Drug Use History: None Reported - Past Family History Father Family Medical History: Cancer Additional Family Medical History / Comment(s): LUNG CANCER Mother Family Medical History: Cancer Additional Family Medical History / Comment(s): Breast Cancer. Medications and Allergies Home Medications Medication Instructions Recorded Confirmed Type Levothyroxine Sodium [Synthroid] 112 mcg PO DAILY 02/22/18 05/30/22 History Methenamine Hippurate [Hiprex] 1 gm PO QID 09/08/18 05/30/22 History Metoprolol Tartrate [Lopressor] 25 mg PO BID 09/08/18 05/30/22 History Vit C/E/Zn/Coppr/Lutein/Zeaxan 2 tab PO W/SUPPER 02/22/19 05/30/22 History [Preservision Areds 2 Softgel] hydroCHLOROthiazide 25 mg PO DAILY 03/21/19 05/30/22 History DULoxetine HCL [Cymbalta] 60 mg PO DAILY 11/19/20 05/30/22 History Pravastatin Sodium [Pravachol] 20 mg PO HS 01/10/21 05/30/22 History Trimethoprim 100 mg PO DAILY 01/23/21 05/30/22 History Losartan Potassium [Cozaar] 100 mg PO DAILY 06/25/21 05/30/22 History Cholecalciferol [Vitamin D3 (25 50 mcg PO DAILY 07/17/21 05/30/22 History Mcg = 1000 Iu)] Menthol [Biofreeze] 1 applic TOPICAL DIRECTED PRN 09/10/21 05/30/22 History Ascorbic Acid [Vitamin C] 500 mg PO DAILY 11/08/21 05/30/22 History Multivit with Calcium,Iron,Min 1 each PO DAILY 11/08/21 05/30/22 History [Women's Multivitamin] Psyllium Husk (with Sugar) 0 gm PO DIRECTED 11/08/21 05/30/22 History [Metamucil Powder] Sucralfate [Carafate] 1 gm PO BID #60 tablet 11/13/21 05/30/22 Rx Hydrocodone/Acetaminophen 1 tab PO Q6HR PRN 05/30/22 05/30/22 History [Hydrocodone/Acetaminophen 5-325] busPIRone HCL 10 mg PO BID 05/30/22 05/30/22 History Allergies Allergy/AdvReac Type Severity Reaction Status Date / Time Sulfa (Sulfonamide Allergy Rash/Hives Verified 05/30/22 11:34 Antibiotics) Physical Exam Vitals: Vital Signs Temp Pulse Pulse Pulse Resp BP BP 06/03/22 20:00 97.3 F L 78 18 128/74 06/03/22 16:58 97.3 F L 95 16 158/71 06/03/22 16:02 69 16 153/72 06/03/22 15:30 64 16 157/72 06/03/22 15:03 62 16 164/75 06/03/22 14:30 65 16 173/70 06/03/22 14:00 69 18 162/90 06/03/22 13:45 65 16 153/70 08/23/22 13:30 59 L 16 170/75 06/03/22 13:18 58 L 16 161/74 06/03/22 12:49 97.6 F 59 L 12 165/70 06/03/22 09:15 98.1 F 65 16 149/67 Pulse Ox 06/03/22 20:00 97 06/03/22 16:58 93 L 06/03/22 16:02 99 06/03/22 15:30 100 06/03/22 15:03 100 06/03/22 14:30 98 06/03/22 14:00 100 06/03/22 13:45 100 06/03/22 13:30 100 06/03/22 13:18 100 06/03/22 12:49 99 06/03/22 09:15 96 Intake and Output 06/03/22 06/03/22 06/04/22 14:59 22:59 06:59 Intake Total 851 150 Output Total 550 100 Balance 301 50 Intake: IV 851 150 Output: Urine 500 100 Estimated Blood Loss 50 Other: # Voids 1 Weight 92.5 kg 92.5 kg Constitutional: No acute distress, conversant, pleasant Eyes: Anicteric sclerae, moist conjunctiva, Pupils equal round reactive to light ENMT: NC/AT Oropharynx clear, no erythema, or exudates Neck: Supple, FROM, no masses, or JVD No carotid bruits No thyromegaly Lungs: Clear to auscultation Clear to percussion Normal respiratory effort, no accessory muscle use Cardiovascular: Heart regular in rate and rhythm, No murmurs, gallops, or rubs No peripheral edema Abdominal: Soft Nontender, no guarding, rebound or rigidity Abdomen moving with respiration Normoactive bowel sounds No hepatomegaly, No splenomegaly No palpable mass No abdominal wall hernia noted Skin: Normal temperature, tone, texture, turgor No induration No subcutaneous nodules No rash, lesions No ulcers Extremities: No digital cyanosis No clubbing Pedal pulses intact and symmetrical Radial pulses intact and symmetrical No calf tenderness edema of the left foot Psychiatric: Alert and oriented to person, place and time Appropriate affect fair judgement Neuro Muscles Strength 4/5 in all 4 extremities with limited exam over left lower extremity due to surgery Sensation to light touch grossly present throughout Cranial nerves II-XII grossly intact No focal sensory deficits Lymphatics: no palpable cervical or supraclavicular , or inguinal lymph nodes Results CBC & Chem 7: 06/03/22 09:50 Assessment and Plan Assessment: left knee OA post left total knee arthroplasty POD zero management per orthopedics chronic conditions hypertension , controlled hypothyroid resume home meds medically stable follow up CBC cmp in am Thank you for allowing us to participate in the care of this patient. Do not hesitate to contact us with questions. Someone can be reached from the [facility] hospitalist group at all hours of the day at [phone].
[2022-06-04] MEDS: HYDROcodone/APAP 7.5-325MG 1 EACH TAB PO PRN ×2 (05:12→21:45)
[2022-06-04] MEDS: LEVOTHYROXINE 112 MCG TAB PO SCH (05:12)
--- NOTE | 2022-06-04 07:23 | P.PN ---
Progress Note - Text The patient is status post left adductor canal catheter placement. The catheter was placed for postoperative pain control, status post total left knee arthroplasty. Ropivacaine 0.2% is infusing at 8 mLs per hour. The patient has no complaints of left lower extremity numbness or weakness. Patient's VAS score is 3 -10. Assessment: Patient's adductor canal catheter is in place and working appropriately. Plan: continue infusion and adjust it as needed.
[2022-06-04] MEDS: METOPROLOL TARTRATE 25 MG TAB PO SCH ×2 (08:22→20:41)
[2022-06-04] MEDS: LOSARTAN 50 MG TAB PO SCH (08:22)
[2022-06-04] MEDS: DULoxetine HCL 60 MG CAPSULE.DR PO SCH (08:23)
[2022-06-04] MEDS: hydroCHLOROthiazide 25 MG TAB PO SCH (08:23)
[2022-06-04] MEDS: busPIRone HCl 10 MG TAB PO SCH ×2 (08:23→20:41)
[2022-06-04] MEDS: LACTATED RINGERS 1,000 ML IV SCH (08:24)
--- NOTE | 2022-06-04 08:40 | P.PN ---
Subjective Progress Note Date: 06/04/22 Principal diagnosis: knee pain Patient is an 82-year-old female with a history of hypertension, hypothyroidism, and osteoarthritis who presented for elective left total knee arthroplasty. On the morning of 06/04, postoperative day 1 she went to the bathroom and then had vitals taken was noted to have a heart rate of 150. EKG was done at that time demonstrated atrial fibrillation with rapid ventricular response. Patient seen and examined at bedside. She can feel as though her heart going fast. She denies any chest pain or pressure, shortness of breath, lighthea dedness, dizziness, nausea, or presyncope. Her pain is currently well controlled and her knee. General: nontoxic, no distress, appears at stated age Derm: warm, dry Head: atraumatic, normocephalic, symmetric Eyes: EOMI, no lid lag, anicteric sclera Mouth: no lip lesion, mucus membranes moist Cardiovascular: S1S2 irregular and tachycardic, no murmur, positive posterior tibial pulse bilateral, Lungs: Decreased breath sounds bilateral, no rhonchi, no rales , no accessory muscle use Abdominal: soft, nontender to palpation, no guarding, no appreciable organomegaly Ext: no gross muscle atrophy, trace edema, no contractures Neuro: CN II-XI grossly intact, no focal neuro deficits Psych: Alert, oriented, appropriate affect Assessment/plan: Atrophic fibrillation with rapid ventricular response -Administer patient's home metoprolol -Telemetry -Check stat electrolyte -Check echocardiogram -Continue with her also -If heart rate remains greater than 10/21/1944 minutes after administration of oral metoprolol will consider transferring patient to cardiac unit and starting a Cardizem drip and consult cardiology. Left total knee arthroplasty -Pain control -Management per or throat Hypertension -controlled -Hydrochlorothiazide, losartan, metoprolol -Follow blood pressures Hypothyroidism -Synthroid Obesity with BMI 38.5 - outpatient structured weight loss Objective - Vital Signs Vital signs: Vital Signs Temp 97.7 F 06/04/22 02:00 Pulse 83 06/04/22 02:00 Resp 18 06/04/22 02:00 BP 156/66 06/04/22 02:00 Pulse Ox 94 L 06/04/22 02:00 FiO2 Intake & Output 06/03/22 06/04/22 06/04/22 18:59 06:59 18:59 Intake Total 1001 340 Output Total 550 100 Balance 451 240 Weight 92.5 kg Intake: IV 1001 Intake, IV Titration 340 Amount Lactated Ringers 1,000 ml 240 @ 20 mls/hr IV .Q24H [facility] Rx#:[id number] ceFAZolin 2 gm In Sodium 100 Chloride 0.9% 50 ml @ 100 mls/hr IVPB Q8H [facility] Rx#: [id number] Output: Urine 500 100 Estimated Blood Loss 50 Other: Voiding Method Toilet # Voids 1 2 - Labs CBC & Chem 7: 06/03/22 09:50
[2022-06-04] MEDS ORDERED: RIVAROXABAN 10 MG TAB PO SCH (09:00)
[2022-06-04] MEDS ORDERED: HYDROcodone/APAP 5-325MG 1 EACH TAB PO STA (09:29)
[2022-06-04 10:02] LABS: HCT 37.8 % (34.0-46.0); HGB 12.2 gm/dL (11.4-16.0); MCHC 32.4 g/dL (31.0-37.0); MCV 95.9 fL (80.0-100.0); Mean Platelet Volume 7.5; Platelet Count 270 k/uL (150-450); RBC 3.94 m/uL (3.80-5.40); RDW 13.5 % (11.5-15.5); WBC 7.1 k/uL (3.8-10.6)
[2022-06-04 10:19] LABS: African American GFR (CKD) 62 (>60 ml/min/1.73 sqM); Anion Gap 12 mmol/L; Blood Urea Nitrogen 28 mg/dL (7-17); Calcium 8.4 mg/dL (8.4-10.2); Carbon Dioxide 25 mmol/L (22-30); Chloride 102 mmol/L (98-107); Glucose 182 mg/dL (74-99); Magnesium 1.8 mg/dL (1.6-2.3); Non-African American GFR(CKD) 54 (>60 ml/min/1.73 sqM); Potassium 3.5 mmol/L (3.5-5.1); Sodium 139 mmol/L (137-145)
[2022-06-04] MEDS: HYDROmorphone 0.5 MG/0.5 ML SYRINGE IVP PRN ×2 (10:36→15:29)
[2022-06-04 10:49] LABS: HCT 37.6 % (37.2-46.3); HGB 12.1 g/dL (12.0-15.0); MCH 29.4 pg (27.0-32.0); MCHC 32.2 g/dL (32.0-37.0); MCV 91.3 fL (80.0-97.0); Mean Platelet Volume 9.7 fL (9.5-12.2); NRBC Per 100 WBC 0 /100 WBCS (0.0-0.0); Platelet Count 295 X 10*3/uL (140-440); RBC 4.12 X 10*6/uL (4.10-5.20); RDW 13.5 % (11.5-14.5); WBC 10.59 X 10*3/uL (4.50-10.00)
[2022-06-04 11:08] LABS: Albumin 3.8 g/dL (3.8-4.9); Albumin/Globulin Ratio 1.5 (1.60-3.17); Anion Gap 13.8 mmol/L (10.00-18.00); BUN/Creat Ratio 24.49 Ratio (12.00-20.00); Blood Urea Nitrogen 26.2 mg/dL (9.0-27.0); Carbon Dioxide 21.7 mmol/L (20.0-27.5); Globulin 2.5 g/dL (1.6-3.3); Non-African American GFR(CKD) 48.3 (60.0-200.0); Total Bilirubin 0.4 mg/dL (0.30-1.20); Total Protein 6.3 g/dL (6.2-8.2)
--- NOTE | 2022-06-04 11:36 | P.PN ---
Subjective Progress Note Date: 06/04/22 Principal diagnosis: Left knee osteoarthritis Patient seen at bedside this morning resting in the semirecumbent position. Patient says she did get up earlier this morning with nurse and [employer]. Nurse said patient went into Afib w/RVR. Medicine following. Patient says she is having l eft knee pain in front and backside of knee. Patient says she does have a walker for home. Patient say she has not had a bowel movement yet, but has passed gas. Patient says she has urinated since surgery. Patient denies chest pain, fever, SOB, N/V, change in vision, loss of bowel/bladder control. Objective - Vital Signs Vital signs: Vital Signs Temp 97.7 F 06/04/22 02:00 Pulse 127 H 06/04/22 09:13 Resp 18 06/04/22 02:00 BP 137/77 06/04/22 09:13 Pulse Ox 94 L 06/04/22 02:00 FiO2 Intake & Output 06/03/22 06/04/22 06/04/22 18:59 06:59 18:59 Intake Total 1001 340 Output Total 550 100 Balance 451 240 Weight 92.5 kg Intake: IV 1001 Intake, IV Titration 340 Amount Lactated Ringers 1,000 ml 240 @ 20 mls/hr IV .Q24H [facility] Rx#:[id number] ceFAZolin 2 gm In Sodium 100 Chloride 0.9% 50 ml @ 100 mls/hr IVPB Q8H [facility] Rx#: [id number] Output: Urine 500 100 Estimated Blood Loss 50 Other: Voiding Method Toilet # Voids 1 2 - Exam Left knee: Incision is clean, dry, and intact. The exofin fusion tape is in good condition. There is minimal soft tissue swelling and ecchymosis surrounding the medial and lateral aspects of the incision. Calf is soft, no tenderness with palpation. Plantar flexion, dorsiflexion, EHL, FHL are intact. Sensory exam to light touch throughout the extremity is intact, dorsal pedis pulses 2+. - Labs CBC & Chem 7: 06/04/22 09:30 06/04/22 09:30 Assessment and Plan Assessment: 1. Left knee osteoarthritis -Postoperative day #1 status post left total knee arthroplasty 2. A. fib with RVR Plan: 1. Left knee osteoarthritis - left total knee arthroplasty performed yesterday, 06/03/2022. Patient at bedside this morning. Physical therapy has not been by to evaluate patient today. Patient was found to have A. fib with RVR. Medicine is recommending patient to stay one more night and for physical therapy to withhold eval until tomorrow morning. Patient does have a walker at home. Plan for home with health care tomorrow 2. Appreciate medical management 3. Pain management - [place] 4. DVT prophylaxis - Xarelto in hospital 5. GI prophylaxis - senna 6. PT/OT - weightbearing as tolerated with walker 7. Encourage incentive spirometer use 8. Discharge planning - Plan for home with health care tomorrow Time with Patient: Less than 30
--- NOTE | 2022-06-04 11:51 | P.CRDCN ---
History of Present Illness Consult date: 06/04/22 Requesting physician: Cassidy Higuera Reason for Consult (text): AF w/RVR Chief complaint: s/p L TKA History of present illness: This is a pleasant 82-year-old female patient who follows in the office with Dr. JANE Ortiz. She has a history of hypertension, hyperlipidemia, hypothyroidism, obesity, depression, history of DVT and osteoarthritis. She underwent left total knee arthroplasty done yesterday by Dr. Alejo. We were asked to see the patient in consultation as she went into atrial fibrillation this morning. She had been feeling well she got up to the bathroom and upon returning to the bed the nurse checked her vital signs and her heart rate was noted to be 140s. At the time she did not feel anything however she started having mild palpitations with no other symptoms while eating her breakfast. She was given her morning dose of metoprolol and her heart rates are now currently better controlled in the 80s to 90s. She remains in atrial fibrillation. Overall she's feeling w ell. She denies any dizziness, lightheadedness, chest discomfort, shortness of breath, palpitations. She has been started on Xarelto 10 mg as part of the postoperative protocol. Most recent echocardiogram was done in 2019 in our office which showed normal LV systolic function with moderate AR, mi [id number] TR. She had Lexiscan MPI in March 2021 which showed no evidence of stress-induced ischemia. He has not previously been diagnosed with atrial fibrillation. She has had some mild palpitations in the past but brief with no other symptoms. Patient was seen and examined resting comfortably in a reclining chair. She currently has no complaints except for left knee pain. Her vital signs are currently stable with a heart rate in the 80s to 90s and a blood pressure of 120/73. Past Medical History Past Medical History: Cancer, Deep Vein Thrombosis (DVT), Hyperlipidemia, Hypertension, Osteoarthritis (OA), Thyroid Disorder Additional Past Medical History / Comment(s): HX DVT 2008., chronic UTI's, varicose veins, constipation, hx "ischemic colitis" 2010, skin cancer, SPINAL STENOSIS, NT left LEG/FOOT- USES WALKER., collapsed tendon left foot., ?duodenal ulcer History of Any Multi-Drug Resistant Organisms: None Reported Past Surgical History: Bladder Surgery, Cholecystectomy, Hysterectomy, Joint Replacement, Orthopedic Surgery Additional Past Surgical History / Comment(s): Parathyroidectomy, Bladder suspension, smita and screws right femur. Cortisone injection, pain clinic procedures. rt hip replacement, rt knee replacement 06/2021, lakisha cataracts., lap jasvir with EGD 09/13/21 Past Anesthesia/Blood Transfusion Reactions: No Reported Reaction Past Psychological History: Depression Smoking Status: Never smoker Past Alcohol Use History: None Reported Past Drug Use History: None Reported - Past Family History Father Family Medical History: Cancer Additional Family Medical History / Comment(s): LUNG CANCER Mother Family Medical History: Cancer Additional Family Medical History / Comment(s): Breast Cancer. Medications and Allergies Home Medications Medication Instructions Recorded Confirmed Type Levothyroxine Sodium [Synthroid] 112 mcg PO DAILY 02/22/18 05/30/22 History Methenamine Hippurate [Hiprex] 1 gm PO QID 09/08/18 05/30/22 History Metoprolol Tartrate [Lopressor] 25 mg PO BID 09/08/18 05/30/22 History Vit C/E/Zn/Coppr/Lutein/Zeaxan 2 tab PO W/SUPPER 02/22/19 05/30/22 History [Preservision Areds 2 Softgel] hydroCHLOROthiazide 25 mg PO DAILY 03/21/19 05/30/22 History DULoxetine HCL [Cymbalta] 60 mg PO DAILY 11/19/20 05/30/22 History Pravastatin Sodium [Pravachol] 20 mg PO HS 01/10/21 05/30/22 History Trimethoprim 100 mg PO DAILY 01/23/21 05/30/22 History Losartan Potassium [Cozaar] 100 mg PO DAILY 06/25/21 05/30/22 History Cholecalciferol [Vitamin D3 (25 50 mcg PO DAILY 07/17/21 05/30/22 History Mcg = 1000 Iu)] Menthol [Biofreeze] 1 applic TOPICAL DIRECTED PRN 09/10/21 05/30/22 History Ascorbic Acid [Vitamin C] 500 mg PO DAILY 11/08/21 05/30/22 History Multivit with Calcium,Iron,Min 1 each PO DAILY 11/08/21 05/30/22 History [Women's Multivitamin] Psyllium Husk (with Sugar) 0 gm PO DIRECTED 11/08/21 05/30/22 History [Metamucil Powder] Sucralfate [Carafate] 1 gm PO BID #60 tablet 11/13/21 05/30/22 Rx Hydrocodone/Acetaminophen 1 tab PO Q6HR PRN 05/30/22 05/30/22 History [Hydrocodone/Acetaminophen 5-325] busPIRone HCL 10 mg PO BID 05/30/22 05/30/22 History Allergies Allergy/AdvReac Type Severity Reaction Status Date / Time Sulfa (Sulfonamide Allergy Rash/Hives Verified 05/30/22 11:34 Antibiotics) Physical Exam Vitals: Vital Signs Temp Pulse Pulse Pulse Resp BP BP 06/04/22 09:13 127 H 137/77 06/04/22 08:00 97.9 F 141 H 18 112/69 06/04/22 02:00 97.7 F 83 18 156/66 06/03/22 20:00 97.3 F L 78 18 128/74 06/03/22 16:58 97.3 F L 95 16 158/71 06/03/22 16:02 69 16 153/72 06/03/22 15:30 64 16 157/72 06/03/22 15:03 62 16 164/75 06/03/22 14:30 65 16 173/70 06/03/22 14:00 69 18 162/90 06/03/22 13:45 65 16 153/70 06/03/22 13:30 59 L 16 170/75 06/03/22 13:18 58 L 16 161/74 06/03/22 12:49 97.6 F 59 L 12 165/70 Pulse Ox 06/04/22 09:13 06/04/22 08:00 98 06/04/22 02:00 94 L 06/03/22 20:00 97 06/03/22 16:58 93 L 06/03/22 16:02 99 06/03/22 15:30 100 06/03/22 15:03 100 06/03/22 14:30 98 06/03/22 14:00 100 06/03/22 13:45 100 06/03/22 13:30 100 06/03/22 13:18 100 06/03/22 12:49 99 Intake and Output 06/03/22 06/04/22 06/04/22 22:59 06:59 14:59 Intake Total 150 340 Output Total 100 Balance 50 340 Intake: IV 150 Intake, IV Titration 340 Amount Lactated Ringers 1,000 ml 240 @ 20 mls/hr IV .Q24H [facility] Rx#:[id number] ceFAZolin 2 gm In Sodium 100 Chloride 0.9% 50 ml @ 100 mls/hr IVPB Q8H [facility] Rx#: [id number] Output: Urine 100 Other: Voiding Method Toilet # Voids 1 2 Weight 92.5 kg PHYSICAL EXAMINATION: This is a 82-year-old female in no apparent distress at the time of my examination. VITAL SIGNS: Blood pressure 120/73, heart rate 87, respirations 18, temp 97.9F. Patient is 98 % on room air. HEENT: Head is atraumatic, normocephalic. Pupils are equal, round. Sclerae anicteric. Conjunctivae are clear. Mucous membranes of the mouth are moist. Neck is supple. There is no elevated jugular venous pressure. No carotid bruit is heard. CHEST EXAMINATION: Clear to auscultation bilaterally. No wheezes rales or rhonchi. Respirations even and nonlabored. HEART EXAMINATION: Heart irregular rate and rhythm, positive S1 and S2. No S3. No S4. With a soft systolic murmur at the base. ABDOMEN: Soft, nontender. Bowel sounds are heard. No organomegaly noted. EXTREMITIES: 2+ peripheral pulses with mild left lower extremity edema, dressing noted to left knee. NEUROLOGIC EXAMINATION: Patient is awake, alert and oriented x3. Results 06/04/22 09:30 06/04/22 09:30 Cardiac Enzymes 06/04/22 Range/Units 07:30 AST 20 (13-35) U/L CBC 06/04/22 06/04/22 Range/Units 07:30 09:30 WBC 10.59 H 7.1 (4.50-10.00) X 10*3/uL RBC 4.12 3.94 (4.10-5.20) X 10*6/uL Hgb 12.1 12.2 (12.0-15.0) g/dL Hct 37.6 37.8 (37.2-46.3) % Plt Count 295 270 (140-440) X 10*3/uL Comprehensive Metabolic Panel 06/04/22 06/04/22 Range/Units 07:30 09:30 Sodium 139 139 (135-145) mmol/L Potassium 4.0 3.5 (3.5-5.5) mmol/L Chloride 103 102 (96-109) mmol/L Carbon Dioxide 21.7 25 (20.0-27.5) mmol/L BUN 26.2 28 H (9.0-27.0) mg/dL Creatinine 1.1 0.98 (0.6-1.5) mg/dL Glucose 107 182 H (70-110) mg/dL Calcium 9.0 8.4 (8.7-10.3) mg/dL AST 20 (13-35) U/L ALT 12 (8-44) U/L Alkaline Phosphatase 77 (41-126) U/L Total Protein 6.3 (6.2-8.2) g/dL Albumin 3.8 (3.8-4.9) g/dL Current Medications Generic Name Dose Route Start Last Admin Trade Name Freq PRN Reason Stop Dose Admin Hydrocodone Bitart/Acetaminophen 1 each 06/03/22 12:27 06/04/22 05:12 Hydrocodone/Apap 7.5-325mg 1 Each Tab PO 07/03/22 12:28 1 each Q6H PRN Administration Pain Scale 6 to 10 Hydrocodone Bitart/Acetaminophen 2 each 06/04/22 10:50 Hydrocodone/Apap 5-325mg 1 Each Tab PO 07/03/22 12:28 Q6HR PRN Pain Scale 1 to 5 Buspirone HCl 10 mg 06/04/22 09:00 06/04/22 08:23 Buspirone Hcl 10 Mg Tab PO 10 mg BID [facility] Administration Ropivacaine 1,090 mg/ Bandage/ 0 mg 06/03/22 13:05 06/03/22 13:13 Support Products 1 each MISCELLANE 07/03/22 13:06 1,090 mg Q2H PRN Administration Breakthrough Pain Duloxetine HCl 60 mg 06/04/22 09:00 06/04/22 08:23 Duloxetine Hcl 60 Mg Capsule.Dr PO 60 mg DAILY [facility] Administration Hydrochlorothiazide 25 mg 06/04/22 09:00 06/04/22 08:23 Hydrochlorothiazide 25 Mg Tab PO 25 mg DAILY [facility] Administration Hydromorphone HCl 0.5 mg 06/03/22 12:27 06/04/22 10:36 Hydromorphone 0.5 Mg/0.5 Ml Syringe IVP 07/03/22 12:28 0.5 mg Q3HR PRN Administration Pain Scale 7 to 10 Hydromorphone HCl 0.25 mg 06/03/22 12:27 Hydromorphone 0.5 Mg/0.5 Ml Syringe IVP 07/03/22 12:28 Q3HR PRN Pain Scale 4 to 6 Lactated Ringer's 1,000 mls @ 20 mls/hr 06/03/22 05:54 06/04/22 08:24 Lactated Ringers IV 07/03/22 05:55 Not Given .Q24H [facility] Levothyroxine Sodium 112 mcg 06/04/22 06:30 06/04/22 05:12 Levothyroxine 112 Mcg Tab PO 112 mcg DAILY@0630 [facility] Administration Lidocaine HCl 0.1 ml 06/03/22 05:54 06/03/22 09:44 Lidocaine 1% (10mg/Ml) For Iv Start INTRADERMA 07/03/22 05:55 0.1 ml PER PROTOCOL PRN Administration IV Start Losartan Potassium 100 mg 06/04/22 09:00 06/04/22 08:22 Losartan 50 Mg Tab PO 100 mg DAILY [facility] Administration Methyl Salicylate 1 applic 06/03/22 20:43 Methyl Salicylate-Menthol Oint (3 Oz Tube) TOPICAL TID PRN .PAIN Protocol Metoprolol Tartrate 25 mg 06/04/22 09:00 06/04/22 08:22 Metoprolol Tartrate 25 Mg Tab PO 25 mg BID [facility] Administration Naloxone HCl 0.2 mg 06/03/22 12:27 Naloxone 0.4 Mg/Ml 1 Ml Vial IV 07/03/22 12:28 Q2M PRN Opioid Reversal Pravastatin Sodium 20 mg 06/04/22 21:00 Pravastatin Sodium 20 Mg Tab PO HS [facility] Rivaroxaban 10 mg 06/04/22 09:00 06/04/22 08:22 Rivaroxaban 10 Mg Tab PO 06/16/22 09:01 10 mg DAILY [facility] Administration Protocol Senna/Docusate Sodium 2 each 06/03/22 21:00 06/03/22 20:50 Sennosides-Docusate Sodium 1 Each Tab PO 07/03/22 21:01 2 each HS [facility] Administration Intake and Output 06/03/22 06/04/22 06/04/22 22:59 06:59 14:59 Intake Total 150 340 Output Total 100 Balance 50 340 Intake: IV 150 Intake, IV Titration 340 Amount Lactated Ringers 1,000 ml 240 @ 20 mls/hr IV .Q24H [facility] Rx#:[id number] ceFAZolin 2 gm In Sodium 100 Chloride 0.9% 50 ml @ 100 mls/hr IVPB Q8H [facility] Rx#: [id number] Output: Urine 100 Other: Voiding Method Toilet # Voids 1 2 Weight 92.5 kg 06/04/22 09:30 06/04/22 09:30 EKG Interpretations (text) Atrial fibrillation with rapid ventricular response Assessment and Plan Assessment: #1 atrial fibrillation with rapid ventricular response, new onset, likely paroxysmal,CHADs VASC score of 6 #2 status post left total knee arthroplasty #3 hypertension #4 hyperlipidemia #5 hypothyroidism #6 history of DVT Plan: From cardiology's perspective we'll obtain a 2-D echo with Doppler study to assess cardiac structure and function. We will check TSH and free T4. We will increase the dose of the Xarelto to 20 mg daily. Continue metoprolol 25 mg by mouth twice a day. We will continue to follow the patient provide further recommendations accordingly. HEATING ENGINEER note has been reviewed, I agree with a documented findings and plan of care. Patient was seen and examined.
--- NOTE | 2022-06-04 12:40 | CA ---
Transthoracic Echo Report Name: America Bellamy Age: 82 Gender: F : 1940 Exam Date: 06/04/2022 11:33 Exam Location: [place] [facility] Ht (in): 60 Wt (lb): 203 Ordering Physician: Cassidy Higuera DO Attending/Referring Phys: [id number], Davida Frankfurter Inspector Val Jimenez, CINTHYA Procedure CPT: Indications: a fib Cardiac Hx: Technical Quality: Contrast 1: Total Dose (mL): Contrast 2: Total Dose (mL): MEASUREMENTS (Male / Female) Normal Values 2D ECHO LV Diastolic Diameter PLAX 4.3 cm 4.2 - 5.9 / 3.9 - 5.3 cm LV Systolic Diameter PLAX 2.9 cm IVS Diastolic Thickness 0.9 cm 0.6 - 1.0 / 0.6 - 0.9 cm LVPW Diastolic Thickness 1.2 cm 0.6 - 1.0 / 0.6 - 0.9 cm LV Relative Wall Thickness 0.5 RV Internal Dim ED PLAX 3.7 cm LA Systolic Diameter LX 3.5 cm 3.0 - 4.0 / 2.7 - 3.8 cm M-MODE Aortic Root Diameter MM 3.1 cm LA Systolic Diameter MM 4.2 cm LA Ao Ratio MM 1.4 MV E Point Septal Separation 0.5 cm AV Cusp Separation MM 1.7 cm DOPPLER TR Peak Velocity 225.5 cm/s TR Peak Gradient 20.3 mmHg Right Ventricular Systolic Press 25.1 mmHg FINDINGS Left Ventricle Normal Left ventricular size, wall thicknes left ventricular ejection fraction is estimated at 55-60 %. Right Ventricle Normal right ventricular size and function. Right Atrium Normal right atrial size. Left Atrium Normal left atrial size. Mitral Valve Mitral annular calcification. Mild mitral regurgitation. Aortic Valve Trileaflet aortic valve.aortic valve sclerosis. Tricuspid Valve Structurally normal tricuspid valve. mild tricuspid regurgitation. Pulmonic Valve Structurally normal pulmonic valve.mild pulmonic regurgitation. Pericardium Normal pericardium. Aorta Normal size aortic root and proximal ascending aorta. CONCLUSIONS 1. Normal size and systolic function 2. Mild mitral and tricuspid regurgitation Previewed by: Dr. Antonino Knapp MD (Electronically Signed) Final Date: 04 June 2022 12:39
[2022-06-04 13:41] LABS: Basophils # (A) 0.05 X 10*3/uL (0.00-0.10); Basophils % (A) 0.5 %; Eosinophils # (A) 0.04 X 10*3/uL (0.04-0.35); Eosinophils % (A) 0.4 %; Immature Grans, Automated 0.5 %; Lymphocytes # (A) 1.95 X 10*3/uL (0.90-5.00); Lymphocytes % (A) 18.4 %; Monocytes # (A) 1.73 X 10*3/uL (0.20-1.00); Monocytes % (A) 16.3 %; Neutrophils # (A) 6.77 X 10*3/uL (1.80-7.70); Neutrophils % (A) 63.9 %
[2022-06-04 14:07] LABS: T4, Free (Free Thyroxine) 1.74 ng/dL (0.78-2.19)
[2022-06-04] MEDS: RIVAROXABAN 20 MG TAB PO SCH (17:39)
[2022-06-04] MEDS: PRAVASTATIN SODIUM 20 MG TAB PO SCH (20:40)
[2022-06-04] MEDS: SENNOSIDES-DOCUSATE SODIUM 1 EACH TAB PO SCH (20:41)
[2022-06-05] MEDS: LEVOTHYROXINE 112 MCG TAB PO SCH (06:31)
[2022-06-05 08:19] LABS: Basophils # (A) 0.1 k/uL (0-0.2); Basophils % (A) 1 %; Eosinophils # (A) 0.1 k/uL (0-0.7); Eosinophils % (A) 1 %; HCT 35.1 % (34.0-46.0); HGB 11.2 gm/dL (11.4-16.0); Lymphocytes # (A) 0.9 k/uL (1.0-4.8); Lymphocytes % (A) 12 %; MCH 29.8 pg (25.0-35.0); MCHC 31.9 g/dL (31.0-37.0); MCV 93.5 fL (80.0-100.0); Mean Platelet Volume 7.4; Monocytes # (A) 0.9 k/uL (0-1.0); Monocytes % (A) 12 %; Neutrophils # (A) 5.7 k/uL (1.3-7.7); Neutrophils % (A) 73 %; Platelet Count 259 k/uL (150-450); RBC 3.75 m/uL (3.80-5.40); RDW 13.2 % (11.5-15.5); WBC 7.8 k/uL (3.8-10.6)
[2022-06-05] MEDS: LOSARTAN 50 MG TAB PO SCH (08:55)
[2022-06-05] MEDS: METOPROLOL TARTRATE 25 MG TAB PO SCH ×2 (08:56→20:51)
[2022-06-05] MEDS: DULoxetine HCL 60 MG CAPSULE.DR PO SCH (08:56)
[2022-06-05] MEDS: busPIRone HCl 10 MG TAB PO SCH ×2 (08:56→20:51)
[2022-06-05] MEDS: hydroCHLOROthiazide 25 MG TAB PO SCH (08:56)
[2022-06-05] MEDS: HYDROcodone/APAP 7.5-325MG 1 EACH TAB PO PRN (09:02)
--- NOTE | 2022-06-05 11:17 | P.PN ---
Subjective Progress Note Date: 06/05/22 Principal diagnosis: Left knee osteoarthritis Patient seen at bedside this morning resting in the semirecumbent position. Patient says she did get up earlier this morning with PT. She says she took a few steps, but was not able to go up and down steps. Patient says she is having left knee pain in front and backside of knee. Patient says she does have a walker for home. Patient says her daughter was going to be able to help her at home for a few days, but she says her daughter snyder COVID now. Patient says she is open to going to [facility] for JO-ANN. Patient say she has not had a bowel movement yet, but has passed gas. Patient says she has urinated since surgery. Patient denies chest pain, fever, SOB, N/V, change in vision, loss of bowel/bladder control. Objective - Vital Signs Vital signs: Vital Signs Temp 98.1 F 06/05/22 07:39 Pulse 88 06/05/22 07:39 Resp 17 06/05/22 07:39 BP 134/71 06/05/22 07:39 Pulse Ox 94 L 06/05/22 07:39 FiO2 Intake & Output 06/04/22 06/05/22 06/05/22 18:59 06:59 18:59 Intake Total 118 118 Balance 118 118 Intake: Oral 118 118 Other: Voiding Method Bedside Commode Bedside Commode Bedside Commode # Voids 1 3 1 - Exam Left knee: Incision is clean, dry, and intact. The exofin fusion tape is in good condition. There is minimal soft tissue swelling and ecchymosis surrounding the medial and lateral aspects of the incision. Calf is soft, no tenderness with palpation. Plantar flexion, dorsiflexion, EHL, FHL are intact. Sensory exam to light touch throughout the extremity is intact, dorsal pedis pulses 2+. - Labs CBC & Chem 7: 06/05/22 07:33 06/04/22 09:30 Labs: Abnormal Lab Results - Last 24 Hours (Table) 06/04/22 06/05/22 Range/Units 07:30 07:33 RBC 3.75 L (3.80-5.40) m/uL Hgb 11.2 L (11.4-16.0) gm/dL Immature Gran # 0.05 H (0.00-0.04) X 10*3/uL Lymphocytes # 0.9 L (1.0-4.8) k/uL Monocytes # 1.73 H (0.20-1.00) X 10*3/uL Assessment and Plan Assessment: 1. Left knee osteoarthritis -Postoperative day #2 status post left total knee arthroplasty Plan: 1. Left knee osteoarthritis - left total knee arthroplasty performed 06/03/2022. Patient at bedside this morning. Patient was able to get up with PT, but could not perform steps. Patient does have a walker at home. Plan for home with health services vs [facility] tmrw 2. Appreciate medical management 3. Pain management - [place] 4. DVT prophylaxis - Xarelto in hospital 5. GI prophylaxis - senna 6. PT/OT - weightbearing as tolerated with walker 7. Encourage incentive spirometer use 8. Discharge planning - Plan for home with health care tomorrow vs [facility] tmrw Time with Patient: Less than 30
--- NOTE | 2022-06-05 11:20 | P.PN ---
Subjective This is a pleasant 82-year-old female patient who follows in the office with Dr. JANE Ortiz. She has a history of hypertension, hyperlipidemia, hypothyroidism, obesity, depression, history of DVT and osteoarthritis. She underwent left total knee arthroplasty done yesterday by Dr. Alejo. We were asked to see the patient in consultation as she went into atrial fibrillation this morning. She had been feeling well she got up to the bathroom and upon returning to the bed the nurse checked her vital signs and her heart rate was noted to be 140s. At the time she did not feel anything however she started having mild palpitations with no other symptoms while eating her breakfast. She was given her morning dose of metoprolol and her heart rates are now currently better controlled in the 80s to 90s. She was transferred to . 06/05 Patient seen and examined at bedside, no acute distress. She converted to sinus mechanism, heart rate 70s80s. Echocardiogram revealed EF 5560 percent, mild mitral regurgitation, mild tricuspid regurgitation. Vital signs are stable. Her Xarelto was increased to 20 mg nightly. GENERAL: Well-appearing, well-nourished and in no acute distress. NECK: Supple without JVD or thyromegaly. LUNGS: Breath sounds clear to auscultation bilaterally. Respiration equal and unlabored. No wheezes, rales or rhonchi. HEART: Regular rate and rhythm. S1 and S2 heard. EXTREMITIES: Normal range of motion, no edema. No clubbing or cyanosis. Peripheral pulses intact. ASSESSMENT Paroxysmal atrial fibrillation with rapid ventricular response, new onset,CHADs VASC score of 6 Status post left total knee arthroplasty Hypertension Dyslipidemia Hypothyroidism History of DVT PLAN From cardiology perspective, patient is stable for discharged when cleared by orthopedics Continue metoprolol 25 mg twice a day and anticoagulation with Xarelto Recommend follow-up with Dr. Ortiz in 12 weeks Nurse Practitioner note has been reviewed, I agree with a documented findings and plan of care. Patient was seen and examined. Objective - Vital Signs Vital signs: Vital Signs Temp 98.1 F 06/05/22 07:39 Pulse 88 06/05/22 07:39 Resp 17 06/05/22 07:39 BP 134/71 06/05/22 07:39 Pulse Ox 94 L 06/05/22 07:39 FiO2 Intake & Output 06/04/22 06/05/22 06/05/22 18:59 06:59 18:59 Intake Total 118 118 Balance 118 118 Intake: Oral 118 118 Other: Voiding Method Bedside Commode Bedside Commode Bedside Commode # Voids 1 3 1 - Labs CBC & Chem 7: 06/05/22 07:33 06/04/22 09:30 Labs: Abnormal Lab Results - Last 24 Hours (Table) 06/04/22 06/05/22 Range/Units 07:30 07:33 RBC 3.75 L (3.80-5.40) m/uL Hgb 11.2 L (11.4-16.0) gm/dL Immature Gran # 0.05 H (0.00-0.04) X 10*3/uL Lymphocytes # 0.9 L (1.0-4.8) k/uL Monocytes # 1.73 H (0.20-1.00) X 10*3/uL
[2022-06-05] MEDS: LACTATED RINGERS 1,000 ML IV SCH (13:39)
--- NOTE | 2022-06-05 14:59 | P.PN ---
Subjective Progress Note Date: 06/05/22 (delayed charting seen at 0945) Principal diagnosis: knee pain Patient is an 82-year-old female with a history of hypertension, hypothyroidism, and osteoarthritis who presented for elective left total knee arthroplasty. On the morning of 06/04, postoperative day 1 she went to the bathroom and then had vitals taken was noted to have a heart rate of 150. EKG was done at that time demonstrated atrial fibrillation with rapid ventricular response. She was given her normal metoprolol and converted to sinus rhythm. Patient seen and examined at bedside. No racing heart, no light headedness, no dizziness, no shortness of breath, having knee pain. General: nontoxic, no distress, appears at stated age Derm: warm, dry Head: atraumatic, normocephalic, symmetric Eyes: EOMI, no lid lag, anicteric sclera Mouth: no lip lesion, mucus membranes moist Cardiovascular: S1S2 irregular and tachycardic, no murmur, positive posterior tibial pulse bilateral, Lungs: Decreased breath sounds bilateral, no rhonchi, no rales , no accessory muscle use Abdominal: soft, nontender to palpation, no guarding, no appreciable organomegaly Ext: no gross muscle atrophy, trace edema, no contractures Neuro: CN II-XI grossly intact, no focal neuro deficits Psych: Alert, oriented, appropriate affect Assessment/plan: Atrophic fibrillation with rapid ventricular response -Metoprolol -Telemetry -Echocardiogram EF 55-60%, mild MR/TR -Xarelto -cardio recs Left total knee arthroplasty -Pain control -Management per or throat Hypertension -controlled -Hydrochlorothiazide, losartan, metoprolol -Follow blood pressures Hypothyroidism -Synthroid Obesity with BMI 38.5 - outpatient structured weight loss Medically optimized for discharge, however struggling with pain and mobility per PT Objective - Vital Signs Vital signs: Vital Signs Temp 97.9 F 06/05/22 12:12 Pulse 69 06/05/22 12:12 Resp 17 06/05/22 07:39 BP 137/77 06/05/22 12:12 Pulse Ox 94 L 06/05/22 12:12 FiO2 Intake & Output 06/04/22 06/05/22 06/05/22 18:59 06:59 18:59 Intake Total 118 236 Balance 118 236 Intake: Oral 118 236 Other: Voiding Method Bedside Commode Bedside Commode Bedside Commode # Voids 1 3 1 - Labs CBC & Chem 7: 06/05/22 07:33 06/04/22 09:30 Labs: Abnormal Lab Results - Last 24 Hours (Table) 06/05/22 Range/Units 07:33 RBC 3.75 L (3.80-5.40) m/uL Hgb 11.2 L (11.4-16.0) gm/dL Lymphocytes # 0.9 L (1.0-4.8) k/uL
[2022-06-05] MEDS: RIVAROXABAN 20 MG TAB PO SCH (16:42)
[2022-06-05] MEDS: PRAVASTATIN SODIUM 20 MG TAB PO SCH (20:51)
[2022-06-05] MEDS: SENNOSIDES-DOCUSATE SODIUM 1 EACH TAB PO SCH (20:52)
[2022-06-05] MEDS: HYDROcodone/APAP 5-325MG 1 EACH TAB PO PRN (20:52)
[2022-06-06] MEDS: HYDROcodone/APAP 7.5-325MG 1 EACH TAB PO PRN ×2 (01:26→17:48)
[2022-06-06] MEDS: LEVOTHYROXINE 112 MCG TAB PO SCH (06:14)
[2022-06-06] MEDS: LACTATED RINGERS 1,000 ML IV SCH (06:15)
[2022-06-06] MEDS: HYDROcodone/APAP 5-325MG 1 EACH TAB PO PRN ×2 (06:18→23:18)
[2022-06-06] MEDS ORDERED: DILTIAZEM DRIP BOLUS FROM BAG 1 MG SOLN IV ONE (08:00)
[2022-06-06] MEDS ORDERED: DILTIAZEM 125 MG in SODIUM CHLORIDE 0.9% 100 ML IV SCH (08:30)
[2022-06-06 08:43] LABS: Basophils # (A) 0.1 k/uL (0-0.2); Basophils % (A) 1 %; Eosinophils # (A) 0.3 k/uL (0-0.7); Eosinophils % (A) 4 %; HCT 32.9 % (34.0-46.0); HGB 10.7 gm/dL (11.4-16.0); Lymphocytes % (A) 13 %; MCH 30.2 pg (25.0-35.0); MCHC 32.4 g/dL (31.0-37.0); MCV 93.1 fL (80.0-100.0); Mean Platelet Volume 7.3; Monocytes # (A) 0.8 k/uL (0-1.0); Monocytes % (A) 11 %; Neutrophils # (A) 5.2 k/uL (1.3-7.7); Neutrophils % (A) 69 %; Platelet Count 272 k/uL (150-450); RBC 3.53 m/uL (3.80-5.40); RDW 13.2 % (11.5-15.5); WBC 7.5 k/uL (3.8-10.6)
[2022-06-06 09:01] LABS: African American GFR (CKD) >90 (>60 ml/min/1.73 sqM); Anion Gap 8 mmol/L; Blood Urea Nitrogen 18 mg/dL (7-17); Calcium 7.8 mg/dL (8.4-10.2); Carbon Dioxide 27 mmol/L (22-30); Chloride 101 mmol/L (98-107); Glucose 94 mg/dL (74-99); Magnesium 1.7 mg/dL (1.6-2.3); Non-African American GFR(CKD) 79 (>60 ml/min/1.73 sqM); Potassium 3.2 mmol/L (3.5-5.1); Sodium 136 mmol/L (137-145)
[2022-06-06] MEDS: METOPROLOL TARTRATE 25 MG TAB PO SCH ×2 (09:08→20:01)
[2022-06-06] MEDS: busPIRone HCl 10 MG TAB PO SCH ×2 (09:08→20:01)
[2022-06-06] MEDS: DULoxetine HCL 60 MG CAPSULE.DR PO SCH (09:09)
[2022-06-06] MEDS: hydroCHLOROthiazide 25 MG TAB PO SCH (09:09)
[2022-06-06] MEDS: LOSARTAN 50 MG TAB PO SCH (09:11)
--- NOTE | 2022-06-06 09:38 | P.PN ---
Subjective Progress Note Date: 06/06/22 Principal diagnosis: Left knee osteoarthritis Patient seen at bedside this morning resting in the semirecumbent position. Patient says she did get up yesterday morning with PT. She says she took a few steps, but was not able to go up and down steps. Patient says she is having left knee pain in front and backside of knee. Patient says she does have a walker for home. Patient says her daughter was going to be able to help her at home for a few days, but she says her daughter snyder COVID now. Patient says she okay with going to [facility] upon discharge. Patient say she has not had a bowel movement yet, but has passed gas. Patient says she has urinated since surgery. Patient denies chest pain, fever, SOB, N/V, change in vision, loss of bowel/bladder control. Objective - Vital Signs Vital signs: Vital Signs Temp 98.2 F 06/06/22 07:36 Pulse 88 06/06/22 07:36 Resp 14 06/06/22 07:36 BP 150/76 06/06/22 07:36 Pulse Ox 92 L 06/06/22 07:36 FiO2 Intake & Output 06/05/22 06/06/22 06/06/22 18:59 06:59 18:59 Intake Total 354 780 Output Total 300 Balance 354 480 Intake: Intake, IV Titration 240 Amount Lactated Ringers 1,000 ml 240 @ 20 mls/hr IV .Q24H [facility] Rx#:[id number] Oral 354 540 Output: Urine 300 Other: Voiding Method Bedside Commode Bedside Commode # Voids 1 3 - Exam Left knee: Incision is clean, dry, and intact. The exofin fusion tape is in good co ndition. There is minimal soft tissue swelling and ecchymosis surrounding the medial and lateral aspects of the incision. Calf is soft, no tenderness with palpation. Plantar flexion, dorsiflexion, EHL, FHL are intact. Sensory exam to light touch throughout the extremity is intact, dorsal pedis pulses 2+. - Labs CBC & Chem 7: 06/06/22 07:42 06/06/22 07:42 Labs: Abnormal Lab Results - Last 24 Hours (Table) 06/06/22 06/06/22 Range/Units 07:42 07:42 RBC 3.53 L (3.80-5.40) m/uL Hgb 10.7 L (11.4-16.0) gm/dL Hct 32.9 L (34.0-46.0) % Sodium 136 L (137-145) mmol/L Potassium 3.2 L (3.5-5.1) mmol/L BUN 18 H (7-17) mg/dL Calcium 7.8 L (8.4-10.2) mg/dL Assessment and Plan Assessment: 1. Left knee osteoarthritis -Postoperative day #3 status post left total knee arthroplasty Plan: 1. Left knee osteoarthritis - left total knee arthroplasty performed 06/03/2022. Patient at bedside this morning. Patient does have a walker at home. Plan for discharge to [facility] today 2. Appreciate medical management 3. Pain management - [place] 4. DVT prophylaxis - discharge to [facility] with Xarelto 5. GI prophylaxis - senna 6. PT/OT - weightbearing as tolerated with walker 7. Encourage incentive spirometer use 8. Discharge planning - Plan for discharge to [facility] today Time with Patient: Less than 30
--- NOTE | 2022-06-06 09:50 | P.DS ---
Providers Date of admission: 06/05/22 09:02 Expected date of discharge: 06/06/22 Attending physician: Glenn Duong Consults: 06/03/22 12:27 Consult Physician Routine Consulting Provider: Cassidy Higuera Consult Reason/Comments: s/p left total knee arthroplasty Do you want consulting provider notified?: Yes 06/04/22 09:51 Consult Physician Routine Consulting Provider: Esteban Pena Consult Reason/Comments: a fib with rvr Do you want consulting provider notified?: Yes Primary care physician: John Mirza Hospital Course: Date of admission: 06/03/2022 Date of discharge: 06/06/2022 Admission diagnosis: Left knee osteoarthritis Discharge diagnosis: Same Attending physician: Dr. Duong Surgical procedures: Left total knee arthroplasty Brief history: Patient is a 82-year-old female with a history of progressive primary left knee osteoarthritis. At this point patient has failed conservative treatment measures and has opted to proceed with a elective left total knee arthroplasty. Hospital course: Details of patient's surgery can be found in operative report. Patient tolerated the procedure well and was subsequently transported to orthopedic floor. Patient's orthopeidc and medical care was provided daily. Patient had daily laboratory tests performed for evaluation of overall blood counts. Patient had daily physical therapy to include strengthening range of motion as well as education with walker ambulation. Patient was treated with Xarelto for their postoperative DVT prophylaxis during their inpatient stay. Patient was noted to have a relatively uneventful postoperative course. Patient reported satisfactory pain control with oral pain medications by postoperative day 3. Patient showed satisfactory progress with physical therapy. Patient moved steadily through the program and had no difficulty meeting the goals by postoperative day 3. Given patient's otherwise satisfactory course and having met physical therapy goals, plan is to discharge patient to subacute rehab on postoperative day 3. Discharge condition/disposition: Patient will be discharged to subacute rehab in stable condition. Discharge medications: Instructions are given on resumption of patient's normal daily medications per primary care recommendation, in addition patient will be prescribed [place] 7.5 mg/325 mg; Colace; Xarelto. Discharge instructions: 1. Wound care and infection precautions, keep incision dry and covered while showering, no lotions, creams, moisturizers. No soaking, tubs, pools, hottubs. Do not scrub over the incision. 2. Weight-bear as tolerated with walker / cane until follow-up. 3. Ice and elevate when necessary. Do not exceed 20 minutes per hour with ice pack. 4. Utilize compression sleeve until seen at first follow up appointment. 5. Visiting nursing care. 6. Home physical therapy including home CPM. 7. Pain meds and anticoagulants per prescription. 8. Pain medication has potential to cause constipation. Increase oral fluid and fiber intake. Contact primary care provider if you have not had a bowel movement within 48 hours after discharge 9. No anti-inflammatory medication until discussed at first post operative visit, this including Motrin, Aleve, Mobic, Diclofenac, Aspirin. 10. Follow up in office at 2 weeks postop with Duc Amin PA-C / Alfie Craig PA-C 11. Follow up with your primary care doctor 7-10 days after discharge. 12. Contact [facility] with any questions, . Keep exofin fusion tape dressing on until follow-up appointment in office in 2 weeks. While showering, cover tape with Saran wrap. Keep incision clean, dry, intact. Medications: [place] 7.5mg/325 mg; Xarelto; Colace Assessment: Left knee osteoarthritis Procedures: Left total knee arthroplasty Patient Condition at Discharge: Good Plan - Discharge Summary Discharge Rx Participant: Yes New Discharge Prescriptions: New Rivaroxaban [Xarelto] 20 mg PO W/SUPPER #30 tab Docusate [Colace] 100 mg PO DAILY #30 capsule HYDROcodone/APAP 7.5-325MG [[place] 7.5] 1 - 2 each PO Q6HR PRN #36 tab PRN Reason: Pain Continue Levothyroxine Sodium [Synthroid] 112 mcg PO DAILY Metoprolol Tartrate [Lopressor] 25 mg PO BID Methenamine Hippurate [Hiprex] 1 gm PO QID Vit C/E/Zn/Coppr/Lutein/Zeaxan [Preservision Areds 2 Softgel] 2 tab PO W/SUPPER hydroCHLOROthiazide 25 mg PO DAILY DULoxetine HCL [Cymbalta] 60 mg PO DAILY Pravastatin Sodium [Pravachol] 20 mg PO HS Trimethoprim 100 mg PO DAILY Losartan Potassium [Cozaar] 100 mg PO DAILY Cholecalciferol [Vitamin D3 (25 Mcg = 1000 Iu)] 50 mcg PO DAILY Multivit with Calcium,Iron,Min [Women's Multivitamin] 1 each PO DAILY Ascorbic Acid [Vitamin C] 500 mg PO DAILY Psyllium Husk (with Sugar) [Metamucil Powder] 0 gm PO DIRECTED Sucralfate [Carafate] 1 gm PO BID #60 tablet busPIRone HCL 10 mg PO BID No Action Menthol [Biofreeze] 1 applic TOPICAL DIRECTED PRN PRN Reason: Pain Hydrocodone/Acetaminophen [Hydrocodone/Acetaminophen 5-325] 1 tab PO Q6HR PRN PRN Reason: Pain Discharge Medication List Levothyroxine Sodium [Synthroid] 112 mcg PO DAILY 02/22/18 [History] Methenamine Hippurate [Hiprex] 1 gm PO QID 09/08/18 [History] Metoprolol Tartrate [Lopressor] 25 mg PO BID 09/08/18 [History] Vit C/E/Zn/Coppr/Lutein/Zeaxan [Preservision Areds 2 Softgel] 2 tab PO W/SUPPER 02/22/19 [History] hydroCHLOROthiazide 25 mg PO DAILY 03/21/19 [History] DULoxetine HCL [Cymbalta] 60 mg PO DAILY 11/19/20 [History] Pravastatin Sodium [Pravachol] 20 mg PO HS 01/10/21 [History] Trimethoprim 100 mg PO DAILY 01/23/21 [History] Losartan Potassium [Cozaar] 100 mg PO DAILY 06/25/21 [History] Cholecalciferol [Vitamin D3 (25 Mcg = 1000 Iu)] 50 mcg PO DAILY 07/17/21 [Histor y] Menthol [Biofreeze] 1 applic TOPICAL DIRECTED PRN 09/10/21 [History] Ascorbic Acid [Vitamin C] 500 mg PO DAILY 11/08/21 [History] Multivit with Calcium,Iron,Min [Women's Multivitamin] 1 each PO DAILY 11/08/21 [History] Psyllium Husk (with Sugar) [Metamucil Powder] 0 gm PO DIRECTED 11/08/21 [History] Sucralfate [Carafate] 1 gm PO BID #60 tablet 11/13/21 [Rx] Hydrocodone/Acetaminophen [Hydrocodone/Acetaminophen 5-325] 1 tab PO Q6HR PRN 05/30/22 [History] busPIRone HCL 10 mg PO BID 05/30/22 [History] Rivaroxaban [Xarelto] 20 mg PO W/SUPPER #30 tab 06/05/22 [Rx] Docusate [Colace] 100 mg PO DAILY #30 capsule 06/06/22 [Rx] HYDROcodone/APAP 7.5-325MG [[place] 7.5] 1 - 2 each PO Q6HR PRN #36 tab 06/06/22 [Rx] Follow up Appointment(s)/Referral(s): [facility], [NON-STAFF] - 1-2 Days ([facility] will call you to schedule your in home physical therapy and nursing visits. ) Jeanette Ortiz MD [STAFF PHYSICIAN] - 1 Week Alfie Craig PAC [PHYSICIAN SOLDERING MACHINE TENDER] - 2 Weeks [facility],Equipment [NON-STAFF] - As Needed (*Please call [facility] once home to arrange delivery of the Continuous Passive Motion (CPM) machine. ) Patient Instructions/Handouts: A-fib (Atrial Fibrillation) (DC), Knee Replacement (DC) Activity/Diet/Wound Care/Special Instructions: Orthopedic Discharge Instructions: 1. Wound care and infection precautions, keep incision dry and covered while showering, no lotions, creams, moisturizers. No soaking, pools, hot tubs. Do not scrub over incision. 2. Weight-bear as tolerated with walker / cane until follow-up. 3. Ice and elevate when necessary. Do not exceed 20 minutes per hour with ice pack. 4. Utilize compression sleeve until seen at first follow up appointment. 5. Pain meds and anticoagulants per prescription. 6. Pain medication has potential to cause constipation. Increase oral fluid and fiber intake. Contact primary care provider if you have not had a bowel movement within 48 hours after discharge. 7. No anti-inflammatory medication until discussed at first post operative visit, this including Motrin, Aleve, Mobic, Diclofenac. 8. Follow up in office at 2 weeks postop with uDc Amin PA-C / Alfie Craig PA-C 9. Follow up with your primary care doctor 7-10 days after discharge. 10. Contact [facility] with any questions, . Keep exofin fusion tape dressing on until follow-up appointment in office in 2 weeks. While showering, cover tape with Saran wrap. Keep incision clean, dry, intact. Medications: Ulm 7.5mg/325 mg; Xarelto; Colace Discharge Disposition: TRANSFER TO SNF/ECF
[2022-06-06] MEDS ORDERED: POTASSIUM CHLORIDE ER 20 MEQ TAB.ER PO STA (10:44)
--- NOTE | 2022-06-06 10:46 | P.PN ---
Subjective Progress Note Date: 06/06/22 Principal diagnosis: Medical management Patient seen and examined at bedside. She reports L knee pain with ambulation. Otherwise, no complaints. General: nontoxic, no distress, appears at stated age Derm: warm, dry Head: atraumatic, normocephalic, symmetric Eyes: EOMI, no lid lag, anicteric sclera Mouth: no lip lesion, mucus membranes moist Cardiovascular: S1S2 irregular and tachycardic, no murmur Lungs: Decreased breath sounds bilateral, no rhonchi, no rales , no accessory muscle use Ext: no gross muscle atrophy, trace edema, no contractures Neuro: no focal neuro deficits Psych: Alert, oriented, appropriate affect Assessment/plan: Atrial fibrillation with rapid ventricular response -Metoprolol -Telemetry -Echocardiogram EF 55-60%, mild MR/TR -Xarelto -cardio recs Hypokalemia -Replace Left total knee arthroplasty -Pain control -Management per or throat Hypertension -controlled -Hydrochlorothiazide, losartan, metoprolol -Follow blood pressures Hypothyroidism -Synthroid Obesity with BMI 38.5 - outpatient structured weight loss Medically optimized for discharge, however struggling with pain and mobility per PT. Plans for [facility] pending insurance authorization. Objective - Vital Signs Vital signs: Vital Signs Temp 98.2 F 06/06/22 07:36 Pulse 102 H 06/06/22 09:15 Resp 14 06/06/22 07:36 BP 150/76 06/06/22 07:36 Pulse Ox 92 L 06/06/22 07:36 FiO2 Intake & Output 06/05/22 06/06/22 06/06/22 18:59 06:59 18:59 Intake Total 354 780 Output Total 300 Balance 354 480 Intake: Intake, IV Titration 240 Amount Lactated Ringers 1,000 ml 240 @ 20 mls/hr IV .Q24H AIMEE Rx#:[id number] Oral 354 540 Output: Urine 300 Other: Voiding Method Bedside Commode Bedside Commode Toilet # Voids 1 3 # Bowel Movements 1 - Labs CBC & Chem 7: 06/06/22 07:42 06/06/22 07:42 Labs: Abnormal Lab Results - Last 24 Hours (Table) 06/06/22 06/06/22 Range/Units 07:42 07:42 RBC 3.53 L (3.80-5.40) m/uL Hgb 10.7 L (11.4-16.0) gm/dL Hct 32.9 L (34.0-46.0) % Sodium 136 L (137-145) mmol/L Potassium 3.2 L (3.5-5.1) mmol/L BUN 18 H (7-17) mg/dL Calcium 7.8 L (8.4-10.2) mg/dL
[2022-06-06] MEDS: RIVAROXABAN 20 MG TAB PO SCH (16:46)
[2022-06-06] MEDS: SENNOSIDES-DOCUSATE SODIUM 1 EACH TAB PO SCH (20:01)
[2022-06-06] MEDS: PRAVASTATIN SODIUM 20 MG TAB PO SCH (20:01)
[2022-06-07] MEDS: LEVOTHYROXINE 112 MCG TAB PO SCH (06:44)
[2022-06-07] MEDS: LACTATED RINGERS 1,000 ML IV SCH (06:44)
--- NOTE | 2022-06-07 07:35 | P.PN ---
Subjective Progress Note Date: 06/07/22 Principal diagnosis: Left knee osteoarthritis Patient seen and examined at bedside. She is resting comfortably in bed. She states she had a rough night last night due to pain, she states she is feeling a little better this morning. Patient verbalized understanding that we are awaiting insurance off for her to be transferred to [facility]. On-Q ball is empty, informed day shift RN that this may be removed. Surgical dressings are clean dry and intact. Patient denies chest pain, fever, SOB, N/V, change in vision, loss of bowel/bladder control. Objective - Vital Signs Vital signs: Vital Signs Temp 98.0 F 06/06/22 20:00 Pulse 78 06/07/22 04:00 Resp 18 06/07/22 04:00 BP 126/72 06/07/22 04:00 Pulse Ox 96 06/07/22 04:00 FiO2 Intake & Output 06/06/22 06/07/22 06/07/22 18:59 06:59 18:59 Intake Total 720 Output Total 500 Balance 220 Intake: Oral 720 Output: Urine 500 Other: Voiding Method Toilet Toilet # Voids 1 # Bowel Movements 1 - Exam Left knee: Incision is clean, dry, and intact. The exofin fusion tape is in good condition. There is minimal soft tissue swelling and ecchymosis surrounding the medial and lateral aspects of the incision. Calf is soft, no tenderness with palpation. Plantar flexion, dorsiflexion, EHL, FHL are intact. Sensory exam to light touch throughout the extremity is intact, dorsal pedis pulses 2+. - Labs CBC & Chem 7: 06/06/22 07:42 06/06/22 07:42 Labs: Abnormal Lab Results - Last 24 Hours (Table) 06/06/22 06/06/22 Range/Units 07:42 07:42 RBC 3.53 L (3.80-5.40) m/uL Hgb 10.7 L (11.4-16.0) gm/dL Hct 32.9 L (34.0-46.0) % Sodium 136 L (137-145) mmol/L Potassium 3.2 L (3.5-5.1) mmol/L BUN 18 H (7-17) mg/dL Calcium 7.8 L (8.4-10.2) mg/dL Assessment and Plan Assessment: Assessment: 1. Left knee osteoarthritis -Postoperative day #4 status post left total knee arthroplasty Plan: Plan: 1. Left knee osteoarthritis - left total knee arthroplasty performed 06/03/2022. Patient at bedside this morning. Patient does have a walker at home. Plan for discharge to [facility] today 2. Appreciate medical management 3. Pain management - [place] 4. DVT prophylaxis - discharge to [facility] with Xarelto 5. GI prophylaxis - senna 6. PT/OT - weightbearing as tolerated with walker 7. Encourage incentive spirometer use 8. Discharge planning - Plan for discharge to [facility] when insurance auth approved Time with Patient: Less than 30
[2022-06-07] MEDS: LOSARTAN 50 MG TAB PO SCH (08:31)
[2022-06-07] MEDS: busPIRone HCl 10 MG TAB PO SCH ×2 (08:31→20:00)
[2022-06-07] MEDS: METOPROLOL TARTRATE 25 MG TAB PO SCH ×2 (08:31→19:59)
[2022-06-07] MEDS: HYDROcodone/APAP 5-325MG 1 EACH TAB PO PRN ×2 (08:32→19:59)
[2022-06-07] MEDS: hydroCHLOROthiazide 25 MG TAB PO SCH (08:32)
[2022-06-07] MEDS: DULoxetine HCL 60 MG CAPSULE.DR PO SCH (08:32)
[2022-06-07 09:09] LABS: Basophils % (A) 0 %; Eosinophils # (A) 0.5 k/uL (0-0.7); Eosinophils % (A) 6 %; HCT 36.7 % (34.0-46.0); Lymphocytes # (A) 1.1 k/uL (1.0-4.8); Lymphocytes % (A) 14 %; MCH 30.4 pg (25.0-35.0); MCHC 32.8 g/dL (31.0-37.0); MCV 92.7 fL (80.0-100.0); Mean Platelet Volume 7.4; Monocytes # (A) 0.7 k/uL (0-1.0); Monocytes % (A) 8 %; Neutrophils # (A) 5.8 k/uL (1.3-7.7); Neutrophils % (A) 70 %; Platelet Count 320 k/uL (150-450); RBC 3.96 m/uL (3.80-5.40); RDW 13.6 % (11.5-15.5); WBC 8.3 k/uL (3.8-10.6)
[2022-06-07 09:46] LABS: Calcium 8.6 mg/dL (8.4-10.2); Potassium 3.8 mmol/L (3.5-5.1)
--- NOTE | 2022-06-07 10:34 | P.PN ---
Subjective Progress Note Date: 06/07/22 Principal diagnosis: Medical management Patient is an 82-year-old female with a history of hypertension, hypothyroidism, and osteoarthritis who presented for elective left total knee arthroplasty. On the morning of 06/04, postoperative day 1 she went to the bathroom and then had vitals taken was noted to have a heart rate of 150. EKG was done at that time demonstrated atrial fibrillation with rapid ventricular response. She was given her normal metoprolol and converted to sinus rhythm. Patient seen and examined at bedside. She reports L knee pain with ambulation. Otherwise, no complaints. General: nontoxic, no distress, appears at stated age Derm: warm, dry Head: atraumatic, normocephalic, symmetric Eyes: EOMI, no lid lag, anicteric sclera Mouth: no lip lesion, mucus membranes moist Cardiovascular: S1S2 irregular and tachycardic, no murmur Lungs: Decreased breath sounds bilateral, no rhonchi, no rales , no accessory muscle use Ext: no gross muscle atrophy, trace edema, no contractures Neuro: no focal neuro deficits Psych: Alert, oriented, appropriate affect Assessment/plan: Atrial fibrillation with rapid ventricular response -Metoprolol -Telemetry -Echocardiogram EF 55-60%, mild MR/TR -Xarelto -cardio recs Hypokalemia -Resolved Left total knee arthroplasty -Pain control -Management per or throat Hypertension -controlled -Hydrochlorothiazide, losartan, metoprolol -Follow blood pressures Hypothyroidism -Synthroid Obesity with BMI 38.5 - outpatient structured weight loss Medically optimized for discharge, however struggling with pain and mobility per PT. Plans for [facility] pending insurance authorization. Objective - Vital Signs Vital signs: Vital Signs Temp 97.5 F L 06/07/22 08:00 Pulse 100 06/07/22 08:00 Resp 14 06/07/22 08:00 BP 138/69 06/07/22 08:00 Pulse Ox 96 06/07/22 08:00 FiO2 Intake & Output 06/06/22 06/07/22 06/07/22 18:59 06:59 18:59 Intake Total 720 Output Total 500 Balance 220 Intake: Oral 720 Output: Urine 500 Other: Voiding Method Toilet Toilet Toilet # Voids 1 # Bowel Movements 1 - Labs CBC & Chem 7: 06/07/22 08:16 06/07/22 08:16 Labs: Abnormal Lab Results - Last 24 Hours (Table) 06/07/22 Range/Units 08:16 Glucose 126 H (74-99) mg/dL
[2022-06-07] MEDS: RIVAROXABAN 20 MG TAB PO SCH (16:57)
[2022-06-07] MEDS: PRAVASTATIN SODIUM 20 MG TAB PO SCH (19:59)
[2022-06-07] MEDS: SENNOSIDES-DOCUSATE SODIUM 1 EACH TAB PO SCH (19:59)
[2022-06-08] MEDS: LACTATED RINGERS 1,000 ML IV SCH (04:13)
[2022-06-08] MEDS: LEVOTHYROXINE 112 MCG TAB PO SCH (05:36)
--- NOTE | 2022-06-08 09:44 | P.PN ---
Subjective Progress Note Date: 06/08/22 Principal diagnosis: Left knee osteoarthritis Patient seen and examined at bedside. She is sitting up in chair. She states she has been up frequently through the night having to use the bathroom (urinate), patient states this is normal for her. She states she is tolerating the activity well, just some soreness to the left lower extremity. Patient verbalized understanding that we are awaiting insurance off for her to be transferred to [facility]. Surgical dressings are clean dry and intact. Patient denies chest pain, fever, SOB, N/V, change in vision, loss of bowel/bladder control. Objective - Vital Signs Vital signs: Vital Signs Temp 98.3 F 06/08/22 04:00 Pulse 86 06/08/22 04:00 Resp 18 06/08/22 04:00 BP 140/86 06/08/22 04:00 Pulse Ox 97 06/08/22 04:00 FiO2 Intake & Output 06/07/22 06/08/22 06/08/22 18:59 06:59 18:59 Intake Total 240 Balance 240 Intake: Oral 240 Other: Voiding Method Toilet Toilet # Voids 4 # Bowel Movements 1 - Exam Left knee: Incision is clean, dry, and intact. The exofin fusion tape is in good condition. There is minimal soft tissue swelling and ecchymosis surrounding the medial and lateral aspects of the incision. Calf is soft, no tenderness with palpation. Plantar flexion, dorsiflexion, EHL, FHL are intact. Sensory exam to light touch throughout the extremity is intact, dorsal pedis pulses 2+. - Labs CBC & Chem 7: 06/07/22 08:16 06/07/22 08:16 Labs: Abnormal Lab Results - Last 24 Hours (Table) 06/07/22 Range/Units 08:16 Glucose 126 H (74-99) mg/dL Assessment and Plan Assessment: Assessment: 1. Left knee osteoarthritis -Postoperative day #5 status post left total knee arthroplasty Plan: Plan: 1. Left knee osteoarthritis - left total knee arthroplasty performed 06/03/2022. Patient at bedside this morning. Patient does have a walker at home. Plan for discharge to [facility] today 2. Appreciate medical management 3. Pain management - [place] 4. DVT prophylaxis - discharge to [facility] with Xarelto 5. GI prophylaxis - senna 6. PT/OT - weightbearing as tolerated with walker 7. Encourage incentive spirometer use 8. Discharge planning - Plan for discharge to [facility] when insurance auth approved Time with Patient: Less than 30
[2022-06-08] MEDS: HYDROcodone/APAP 7.5-325MG 1 EACH TAB PO PRN (09:48)
[2022-06-08] MEDS: DULoxetine HCL 60 MG CAPSULE.DR PO SCH (09:49)
[2022-06-08] MEDS: METOPROLOL TARTRATE 25 MG TAB PO SCH ×2 (09:49→19:42)
[2022-06-08] MEDS: busPIRone HCl 10 MG TAB PO SCH ×2 (09:50→19:42)
[2022-06-08] MEDS: LOSARTAN 50 MG TAB PO SCH (09:50)
[2022-06-08] MEDS: hydroCHLOROthiazide 25 MG TAB PO SCH (09:51)
--- NOTE | 2022-06-08 12:40 | P.PN ---
Subjective Progress Note Date: 06/08/22 Principal diagnosis: Left knee pain Interval history: Medical management consult: Patient is an 82-year-old female with a history of hypertension, hypothyroidism, and osteoarthritis who presented for elective left total knee arthroplasty. On the morning of 06/04, postoperative day 1 she went to the bathroom and then had vitals taken was noted to have a heart rate of 150. EKG was done at that time demonstrated atrial fibrillation with rapid ventricular response. She was given her normal metoprolol and converted to sinus rhythm. 06/08/2022: Patient seen and examined today no new complaints no nausea vomiting fever or chills no shortness of breath Objective - Vital Signs Vital signs: Vital Signs Temp 98.4 F 06/08/22 08:00 Pulse 105 H 06/08/22 08:00 Resp 14 06/08/22 08:00 BP 144/82 06/08/22 08:00 Pulse Ox 94 L 06/08/22 08:00 FiO2 Intake & Output 06/07/22 06/08/22 06/08/22 18:59 06:59 18:59 Intake Total 240 Balance 240 Intake: Oral 240 Other: Voiding Method Toilet Toilet Toilet # Voids 4 # Bowel Movements 1 - Exam General: nontoxic, no distress, appears at stated age Derm: warm, dry Head: atraumatic, normocephalic, symmetric Eyes: EOMI, no lid lag, anicteric sclera Mouth: no lip lesion, mucus membranes moist Cardiovascular: S1S2 irregular and tachycardic, no murmur Lungs: Decreased breath sounds bilateral, no rhonchi, no rales , no accessory muscle use Ext: no gross muscle atrophy, trace edema, no contractures Neuro: no focal neuro deficits Psych: Alert, oriented, appropriate affect - Labs CBC & Chem 7: 06/07/22 08:16 06/07/22 08:16 Assessment and Plan Assessment: Atrial fibrillation with rapid ventricular response -Heart rate is controlled at this time. Patient is on metoprolol -Echocardiogram EF 55-60%, mild MR/TR -Xarelto Hypokalemia -Most recently Potassium 3.8 continue to monitor replace Left total knee arthroplasty -Pain control -Management per orthopedic surgery team Hypertension -controlled -Hydrochlorothiazide, losartan, metoprolol -Follow blood pressures Hypothyroidism -Synthroid Obesity with BMI 38.5 - outpatient structured weight loss Patient is medically stable for discharge from internal medicine standpoint. Currently awaiting insurance authorization for subacute rehab
[2022-06-08] MEDS: RIVAROXABAN 20 MG TAB PO SCH (17:13)
[2022-06-08] MEDS: SENNOSIDES-DOCUSATE SODIUM 1 EACH TAB PO SCH (19:41)
[2022-06-08] MEDS: HYDROcodone/APAP 5-325MG 1 EACH TAB PO PRN (19:41)
[2022-06-08] MEDS: PRAVASTATIN SODIUM 20 MG TAB PO SCH (19:42)
[2022-06-09] MEDS: LEVOTHYROXINE 112 MCG TAB PO SCH (06:23)
[2022-06-09] MEDS: LACTATED RINGERS 1,000 ML IV SCH (06:58)
[2022-06-09 07:59] LABS: Basophils # (A) 0.1 k/uL (0-0.2); Basophils % (A) 1 %; Eosinophils # (A) 0.5 k/uL (0-0.7); Eosinophils % (A) 7 %; HCT 34.7 % (34.0-46.0); Lymphocytes # (A) 1.7 k/uL (1.0-4.8); Lymphocytes % (A) 23 %; MCH 29.5 pg (25.0-35.0); MCHC 31.6 g/dL (31.0-37.0); MCV 93.2 fL (80.0-100.0); Mean Platelet Volume 7.3; Monocytes # (A) 0.8 k/uL (0-1.0); Monocytes % (A) 11 %; Neutrophils # (A) 4.2 k/uL (1.3-7.7); Neutrophils % (A) 57 %; Platelet Count 305 k/uL (150-450); RBC 3.72 m/uL (3.80-5.40); RDW 13.5 % (11.5-15.5); WBC 7.4 k/uL (3.8-10.6)
[2022-06-09] MEDS ORDERED: polyethylene glycoL 3350 17 GM POWD.PACK PO SCH (09:00)
[2022-06-09] MEDS: HYDROcodone/APAP 5-325MG 1 EACH TAB PO PRN (09:05)
[2022-06-09] MEDS: DULoxetine HCL 60 MG CAPSULE.DR PO SCH (09:06)
[2022-06-09] MEDS: METOPROLOL TARTRATE 25 MG TAB PO SCH (09:06)
[2022-06-09] MEDS: hydroCHLOROthiazide 25 MG TAB PO SCH (09:06)
[2022-06-09] MEDS: busPIRone HCl 10 MG TAB PO SCH (09:06)
[2022-06-09] MEDS: LOSARTAN 50 MG TAB PO SCH (09:06)
[2022-06-09 11:20] VITALS: TEMP 98.1
--- NOTE | 2022-06-09 12:10 | P.PN ---
Subjective Progress Note Date: 06/09/22 Principal diagnosis: Status post left total knee arthroplasty Patient is evaluated today at bedside, she is resting in her hospital chair, she is eating lunch. She states that she was able to ambulate a little bit better with physical therapy today. She denies any chest pain or shortness of breath at this time. Objective - Vital Signs Vital signs: Vital Signs Temp 98.1 F 06/09/22 09:00 Pulse 97 06/09/22 09:00 Resp 18 06/09/22 09:00 BP 144/72 06/09/22 09:00 Pulse Ox 94 L 06/09/22 09:00 FiO2 Intake & Output 06/08/22 06/09/22 06/09/22 18:59 06:59 18:59 Intake Total 720 480 118 Output Total 100 Balance 720 380 118 Intake: Oral 720 480 118 Output: Urine 100 Other: Voiding Method Toilet Toilet Toilet # Voids 4 4 1 # Bowel Movements 1 - Exam Left lower extremity: Incision is clean, dry, and intact. The exofin fusion tape is in good condition. There is minimal soft tissue swelling and ecchymosis surrounding the medial and lateral aspects of the incision. Calf is soft, no tenderness with palpation. Plantar flexion, dorsiflexion, EHL, FHL are intact. Sensory exam to light touch throughout the extremity is intact, dorsal pedis pulses 2+. - Labs CBC & Chem 7: 06/09/22 07:05 06/07/22 08:16 Labs: Abnormal Lab Results - Last 24 Hours (Table) 06/09/22 Range/Units 07:05 RBC 3.72 L (3.80-5.40) m/uL Hgb 11.0 L (11.4-16.0) gm/dL Assessment and Plan Assessment: Postoperative day #6 status post left total knee arthroplasty Afib with RVR Other medical comorbidities Plan: Pain control, plan for discharge on [place] 7.5 mg/325 mg GI and DVT prophylaxis, Xarelto for oral anticoagulant along with stool softeners Wound care and restrictions discussed, this including showering instruction Medical recommendations Encourage incentive spirometer Discharge planning: Patient stable for discharge to subacute rehab Time with Patient: Less than 30
--- NOTE | 2022-06-09 12:22 | P.PN ---
Subjective Progress Note Date: 06/09/22 Principal diagnosis: Left knee pain Interval history: Medical management consult: Patient is an 82-year-old female with a history of hypertension, hypothyroidism, and osteoarthritis who presented for elective left total knee arthroplasty. On the morning of 06/04, postoperative day 1 she went to the bathroom and then had vitals taken was noted to have a heart rate of 150. EKG was done at that time demonstrated atrial fibrillation with rapid ventricular response. She was given her normal metoprolol and converted to sinus rhythm. 06/08/2022: Patient seen and examined today no new complaints no nausea vomiting fever or chills no shortness of breath Objective - Vital Signs Vital signs: Vital Signs Temp 98.1 F 06/09/22 09:00 Pulse 97 06/09/22 09:00 Resp 18 06/09/22 09:00 BP 144/72 06/09/22 09:00 Pulse Ox 94 L 06/09/22 09:00 FiO2 Intake & Output 06/08/22 06/09/22 06/09/22 18:59 06:59 18:59 Intake Total 720 480 118 Output Total 100 Balance 720 380 118 Intake: Oral 720 480 118 Output: Urine 100 Other: Voiding Method Toilet Toilet Toilet # Voids 4 4 1 # Bowel Movements 1 - Exam General: nontoxic, no distress, appears at stated age Derm: warm, dry Head: atraumatic, normocephalic, symmetric Eyes: EOMI, no lid lag, anicteric sclera Mouth: no lip lesion, mucus membranes moist Cardiovascular: S1S2 irregular and tachycardic, no murmur Lungs: Decreased breath sounds bilateral, no rhonchi, no rales , no accessory muscle use Ext: no gross muscle atrophy, trace edema, no contractures Neuro: no focal neuro deficits Psych: Alert, oriented, appropriate affect - Labs CBC & Chem 7: 06/09/22 07:05 06/07/22 08:16 Labs: Abnormal Lab Results - Last 24 Hours (Table) 06/09/22 Range/Units 07:05 RBC 3.72 L (3.80-5.40) m/uL Hgb 11.0 L (11.4-16.0) gm/dL Assessment and Plan Assessment: Atrial fibrillation with rapid ventricular response -Heart rate is controlled at this time. Patient is on metoprolol -Echocardiogram EF 55-60%, mild MR/TR -Xarelto Hypokalemia Potassium stable replaced Left total knee arthroplasty -Pain control -Management per orthopedic surgery team Hypertension -controlled -Hydrochlorothiazide, losartan, metoprolol -Follow blood pressures Hypothyroidism -Synthroid Obesity with BMI 38.5 - outpatient structured weight loss Patient is medically stable for discharge from internal medicine standpoint. Currently awaiting insurance authorization for subacute rehab
[2022-06-09 12:48] VITALS: BP 134/79; PULSE 67; RESP 16
== END 2022-06-09 15:55 ==
LOC: OR 08:41 → 4SSUR 12:49 → 3SCARD 06-04 11:42 → OR 06-05 09:02 → 3SCARD 06-05 09:02
PROVIDERS: ADMIT Orthopaedic Surgery; ATTEND Orthopaedic Surgery
DX: M17.12 Unilateral primary osteoarthritis, left knee (principal); G89.18 Other acute postprocedural pain; I48.91 Unspecified atrial fibrillation; I10 Essential (primary) hypertension; E78.5 Hyperlipidemia, unspecified; E03.9 Hypothyroidism, unspecified; F32.A Depression, unspecified; E66.9 Obesity, unspecified; Z68.38 Body mass index [BMI] 38.0-38.9, adult; Z85.828 Personal history of other malignant neoplasm of skin; Z86.718 Personal history of other venous thrombosis and embolism; Z87.440 Personal history of urinary (tract) infections; Z96.651 Presence of right artificial knee joint; Z96.641 Presence of right artificial hip joint; Z79.890 Hormone replacement therapy; Z79.899 Other long term (current) drug therapy; Z88.2 Allergy status to sulfonamides; Z20.822 Contact with and (suspected) exposure to COVID-19
CPT/HCPCS: 27447; 96361 ×2; 96365; 96366 ×2; 96375; 96376; 93306; 93005; 97116 ×3; 97530 ×3; 97163; 97535; 97167 ×2; 64999; 64448; 76942; 84439; 80053; 80048 ×3; 83735 ×2; 84132; 84443; 85025 ×5; 85027; 88300; 87635 ×2; 73560; G0378 ×5; C1713 ×2; C1776; J2250; J1100; J0690 ×3; J2405; J3010; J2795 ×2; J2704; J1170 ×2; 96360

== ENCOUNTER 2022-08-08 13:04 | Observation (INO) | payer MEDICARE ==
[2022-08-08 15:03] LABS: Basophils # (A) 0.1 k/uL (0-0.2); Basophils % (A) 1 %; Eosinophils # (A) 0.3 k/uL (0-0.7); Eosinophils % (A) 4 %; HCT 39.1 % (34.0-46.0); Lymphocytes # (A) 1.2 k/uL (1.0-4.8); Lymphocytes % (A) 18 %; MCH 30.2 pg (25.0-35.0); MCHC 33.2 g/dL (31.0-37.0); MCV 90.9 fL (80.0-100.0); Mean Platelet Volume 7.9; Monocytes # (A) 0.6 k/uL (0-1.0); Monocytes % (A) 9 %; Neutrophils # (A) 4.6 k/uL (1.3-7.7); Neutrophils % (A) 67 %; Platelet Count 295 k/uL (150-450); RBC 4.31 m/uL (3.80-5.40); RDW 13.8 % (11.5-15.5); WBC 6.8 k/uL (3.8-10.6)
[2022-08-08 15:10] LABS: Calcium 9.9 mg/dL (8.4-10.2); Total Bilirubin 0.4 mg/dL (0.2-1.3)
--- NOTE | 2022-08-08 16:04 | ED ---
General Adult HPI - General Chief complaint: GI Bleed Stated complaint: Rectal bleeding Time Seen by Provider: 08/08/22 15:50 Source: patient, RN notes reviewed, old records reviewed Mode of arrival: ambulatory Limitations: no limitations - History of Present Illness Initial comments: Patient is an 82-year-old female who presents emergency Department complaining of GI bleed. Patient does have a history of left knee surgery, and had a short run of A. fib while she was in the hospital at that time. Was placed on Xeralto. This occurred earlier this year. Has been on it since. States she has been noticing bright red blood per rectum since yesterday. Did have a short episode of this a few months back that resolved on its own. He was concerned as there is bright red blood in all 4 of her bowel movements since yesterday. Denies any weakness, numbness. Denies any lightheadedness, worsening shortness of breath at baseline. Does state she has a history of ischemic colitis, however no known history of diverticulosis or diverticulitis. Patient states she did have some abdominal pain earlier associated with this bleeding but it is since passed. Improved following a bowel movement. States it was in her left lower quadrant. Denies any dysuria or hematuria. Denies any chest pain, shortness breath. Denies any fevers, chills, cough. His no other acute complaints at this time. Presents with her daughter for further evaluation of this time. I evaluated her when she was placed in room after laboratory studies were partially drawn while she was in triage. - Related Data Home Medications Medication Instructions Recorded Confirmed Levothyroxine Sodium [Synthroid] 112 mcg PO DAILY 02/22/18 05/30/22 Methenamine Hippurate [Hiprex] 1 gm PO QID 09/08/18 05/30/22 Metoprolol Tartrate [Lopressor] 25 mg PO BID 09/08/18 05/30/22 Vit C/E/Zn/Coppr/Lutein/Zeaxan 2 tab PO W/SUPPER 02/22/19 05/30/22 [Preservision Areds 2 Softgel] hydroCHLOROthiazide 25 mg PO DAILY 03/21/19 05/30/22 DULoxetine HCL [Cymbalta] 60 mg PO DAILY 11/19/20 05/30/22 Pravastatin Sodium [Pravachol] 20 mg PO HS 01/10/21 05/30/22 Trimethoprim 100 mg PO DAILY 01/23/21 05/30/22 Losartan Potassium [Cozaar] 100 mg PO DAILY 06/25/21 05/30/22 Cholecalciferol [Vitamin D3 (25 50 mcg PO DAILY 07/17/21 05/30/22 Mcg = 1000 Iu)] Menthol [Biofreeze] 1 applic TOPICAL DIRECTED PRN 09/10/21 05/30/22 Ascorbic Acid [Vitamin C] 500 mg PO DAILY 11/08/21 05/30/22 Multivit with Calcium,Iron,Min 1 each PO DAILY 11/08/21 05/30/22 [Women's Multivitamin] Psyllium Husk (with Sugar) 0 gm PO DIRECTED 11/08/21 05/30/22 [Metamucil Powder] Hydrocodone/Acetaminophen 1 tab PO Q6HR PRN 05/30/22 05/30/22 [Hydrocodone/Acetaminophen 5-325] busPIRone HCL 10 mg PO BID 05/30/22 05/30/22 Previous Rx's Medication Instructions Recorded Sucralfate [Carafate] 1 gm PO BID #60 tablet 11/13/21 Rivaroxaban [Xarelto] 20 mg PO W/SUPPER #30 tab 06/05/22 Docusate [Colace] 100 mg PO DAILY #30 capsule 06/06/22 HYDROcodone/APAP 7.5-325MG [[place] 1 - 2 each PO Q6HR PRN #36 tab 06/06/22 7.5] Allergies Allergy/AdvReac Type Severity Reaction Status Date / Time Sulfa (Sulfonamide Allergy Rash/Hives Verified 08/08/22 13:15 Antibiotics) Review of Systems ROS Statement: Those systems with pertinent positive or pertinent negative responses have been documented in the HPI. Review of Systems: CONST: Denies fever EYES: Denies blurry vision ENT: Denies nasal congestion C/V: Denies Chest pain RESP: Denies shortness of breath GI: Denies abdominal pain : Denies dysuria SKIN: Denies rash. MSK: Denies joint pain. NEURO: Denies headache ROS Other: All systems not noted in ROS Statement are negative. Past Medical History Past Medical History: Cancer, Deep Vein Thrombosis (DVT), Hyperlipidemia, Hypertension, Osteoarthritis (OA), Thyroid Disorder Additional Past Medical History / Comment(s): HX DVT 2008., chronic UTI's, varicose veins, constipation, hx "ischemic colitis" 2010, skin cancer, SPINAL STENOSIS, NT left LEG/FOOT- USES WALKER., collapsed tendon left foot., ?duode nal ulcer History of Any Multi-Drug Resistant Organisms: None Reported Past Surgical History: Bladder Surgery, Cholecystectomy, Hysterectomy, Joint Re placement, Orthopedic Surgery Additional Past Surgical History / Comment(s): Parathyroidectomy, Bladder suspension, smita and screws right femur. Cortisone injection, pain clinic procedures. rt hip replacement, rt knee replacement 06/2021, lakisha cataracts., lap jasvir with EGD 09/13/21 Past Anesthesia/Blood Transfusion Reactions: No Reported Reaction Past Psychological History: Depression Smoking Status: Never smoker Past Alcohol Use History: None Reported Past Drug Use History: None Reported - Past Family History Father Family Medical History: Cancer Additional Family Medical History / Comment(s): LUNG CANCER Mother Family Medical History: Cancer Additional Family Medical History / Comment(s): Breast Cancer. General Exam - General Exam Comments Initial Comments: General: Appears in no acute distress. HEAD: Normal with no signs of head trauma. EYES: PERRLA, EOMI, conjunctiva normal, no discharge. ENT: Hearing grossly intact, normal oropharynx. RESPIRATORY: Clear breath sounds bilaterally. No wheezes, rales, or rhonchi. C/V: Regular rate and rhythm. S1 and S2 auscultated, no edema, peripheral pulses 2+ and intact throughout ABD: Abd is soft, nontender, nondistended. No guarding. No peritoneal signs. No rebound tenderness. Rectal exam performed in the presence of a nurse. No gross blood. Light brown stool present. Good tone. External hemorrhoids that are not actively bleeding are present. EXT: Normal range of motion, no obvious deformity SKIN: No rashes or lesions observed on exposed skin. NEURO: Alert and oriented 4. Limitations: no limitations Course Vital Signs 08/08/22 08/08/22 13:13 17:27 Temperature 97.7 F Pulse Rate 78 65 Respiratory 16 18 Rate Blood Pressure 135/78 134/63 O2 Sat by Pulse 100 97 Oximetry Medical Decision Making - Medical Decision Making Based on the patient's presentation and physical exam, I'm concerned for possible GI bleed for the patient. She did have pain earlier today that is since resolved but was in the left lower quadrant. With this pain as well as bright red blood per rectum per patient, would like to obtain CT abdomen and pelvis. However prior to that I would like to complete the abdominal laboratory studies, and abdominal lactic acid as well as coags and occult blood to evaluate for ischemic colitis. She was in agreement with this plan. She is asymptomatic at this time. Resting comfortable. Vital signs within acceptable limits. She was in agreement this plan. Laboratory studies were remarkable for a hemoglobin within normal limits at 13. Coags are within normal limits. Lactate is slightly elevated to 2.1. Occult blood is positive. Remainder of the labs are unremarkable. I did discuss with the patient that I would like to obtain CT imaging of the abdomen and pelvis, GI bleed protocol. She was in agreement this plan. Revealed diverticulosis without diverticulitis. No active GI bleeding. On reevaluation, we discussed her results. We discussed admission versus discharge, and I recommended admission which she accepted. We'll hold her blood thinning medication this time and obtain repeat CBCs. She was in agreement this plan. Patient has had a bowel movement here in the department which she did not witness any blood. I did speak with surgery on-call, Dr. Hope was in agreement this consult. Recommended holding her blood thinner, and patient to have a diet. I spoke with the admitting physician, Dr. Kaplan who accepted the patient. Patient was admitted to observation in stable condition. - Lab Data Result diagrams: 08/08/22 14:40 08/08/22 14:40 Lab Results 08/08/22 08/08/22 08/08/22 Range/Units 14:40 14:40 14:40 WBC 6.8 (3.8-10.6) k/uL RBC 4.31 (3.80-5.40) m/uL Hgb 13.0 (11.4-16.0) gm/dL Hct 39.1 (34.0-46.0) % MCV 90.9 (80.0-100.0) fL MCH 30.2 (25.0-35.0) pg MCHC 33.2 (31.0-37.0) g/dL RDW 13.8 (11.5-15.5) % Plt Count 295 (150-450) k/uL MPV 7.9 Neutrophils % 67 % Lymphocytes % 18 % Monocytes % 9 % Eosinophils % 4 % Basophils % 1 % Neutrophils # 4.6 (1.3-7.7) k/uL Lymphocytes # 1.2 (1.0-4.8) k/uL Monocytes # 0.6 (0-1.0) k/uL Eosinophils # 0.3 (0-0.7) k/uL Basophils # 0.1 (0-0.2) k/uL PT (9.0-12.0) sec INR (<1.2) APTT 28.2 (22.0-30.0) sec Sodium 143 (137-145) mmol/L Potassium 4.0 (3.5-5.1) mmol/L Chloride 103 (98-107) mmol/L Carbon Dioxide 26 (22-30) mmol/L Anion Gap 14 mmol/L BUN 22 H (7-17) mg/dL Creatinine 0.98 (0.52-1.04) mg/dL Est GFR (CKD-EPI)AfAm 62 (>60 ml/min/1.73 sqM) Est GFR (CKD-EPI)NonAf 54 (>60 ml/min/1.73 sqM) Glucose 146 H (74-99) mg/dL Plasma Lactic Acid Iftikhar (0.7-2.0) mmol/L Calcium 9.9 (8.4-10.2) mg/dL Total Bilirubin 0.4 (0.2-1.3) mg/dL AST 21 (14-36) U/L ALT 17 (4-34) U/L Alkaline Phosphatase 115 (38-126) U/L Troponin I (0.000-0.034) ng/mL Total Protein 7.0 (6.3-8.2) g/dL Albumin 4.0 (3.5-5.0) g/dL Stool Occult Blood (Negative) Blood Type Blood Type Recheck Bld Type Recheck Status Antibody Screen Spec Expiration Date 08/08/22 08/08/22 08/08/22 Range/Units 14:40 14:40 14:40 WBC (3.8-10.6) k/uL RBC (3.80-5.40) m/uL Hgb (11.4-16.0) gm/dL Hct (34.0-46.0) % MCV (80.0-100.0) fL MCH (25.0-35.0) pg MCHC (31.0-37.0) g/dL RDW (11.5-15.5) % Plt Count (150-450) k/uL MPV Neutrophils % % Lymphocytes % % Monocytes % % Eosinophils % % Basophils % % Neutrophils # (1.3-7.7) k/uL Lymphocytes # (1.0-4.8) k/uL Monocytes # (0-1.0) k/uL Eosinophils # (0-0.7) k/uL Basophils # (0-0.2) k/uL PT 11.6 (9.0-12.0) sec INR 1.1 (<1.2) APTT (22.0-30.0) sec Sodium (137-145) mmol/L Potassium (3.5-5.1) mmol/L Chloride (98-107) mmol/L Carbon Dioxide (22-30) mmol/L Anion Gap mmol/L BUN (7-17) mg/dL Creatinine (0.52-1.04) mg/dL Est GFR (CKD-EPI)AfAm (>60 ml/min/1.73 sqM) Est GFR (CKD-EPI)NonAf (>60 ml/min/1.73 sqM) Glucose (74-99) mg/dL Plasma Lactic Acid Iftikhar (0.7-2.0) mmol/L Calcium (8.4-10.2) mg/dL Total Bilirubin (0.2-1.3) mg/dL AST (14-36) U/L ALT (4-34) U/L Alkaline Phosphatase (38-126) U/L Troponin I <0.012 (0.000-0.034) ng/mL Total Protein (6.3-8.2) g/dL Albumin (3.5-5.0) g/dL Stool Occult Blood (Negative) Blood Type O Negative Blood Type Recheck O Neg Bld Type Recheck Status No Antibody Screen NEGATIVE Spec Expiration Date 08/11/2022 - 233908/08/22 08/08/22 Range/Units 16:01 16:19 WBC (3.8-10.6) k/uL RBC (3.80-5.40) m/uL Hgb (11.4-16.0) gm/dL Hct (34.0-46.0) % MCV (80.0-100.0) fL MCH (25.0-35.0) pg MCHC (31.0-37.0) g/dL RDW (11.5-15.5) % Plt Count (150-450) k/uL MPV Neutrophils % % Lymphocytes % % Monocytes % % Eosinophils % % Basophils % % Neutrophils # (1.3-7.7) k/uL Lymphocytes # (1.0-4.8) k/uL Monocytes # (0-1.0) k/uL Eosinophils # (0-0.7) k/uL Basophils # (0-0.2) k/uL PT (9.0-12.0) sec INR (<1.2) APTT (22.0-30.0) sec Sodium (137-145) mmol/L Potassium (3.5-5.1) mmol/L Chloride (98-107) mmol/L Carbon Dioxide (22-30) mmol/L Anion Gap mmol/L BUN (7-17) mg/dL Creatinine (0.52-1.04) mg/dL Est GFR (CKD-EPI)AfAm (>60 ml/min/1.73 sqM) Est GFR (CKD-EPI)NonAf (>60 ml/min/1.73 sqM) Glucose (74-99) mg/dL Plasma Lactic Acid Iftikhar 2.1 H* (0.7-2.0) mmol/L Calcium (8.4-10.2) mg/dL Total Bilirubin (0.2-1.3) mg/dL AST (14-36) U/L ALT (4-34) U/L Alkaline Phosphatase (38-126) U/L Troponin I (0.000-0.034) ng/mL Total Protein (6.3-8.2) g/dL Albumin (3.5-5.0) g/dL Stool Occult Blood Positive H (Negative) Blood Type Blood Type Recheck Bld Type Recheck Status Antibody Screen Spec Expiration Date Disposition Clinical Impression: Hematochezia, GI bleed, Afib Disposition: ADMITTED IP TO THIS [facility] Condition: Stable Referrals: Chris Bella MD [Primary Care Provider] - 1-2 days Time of Disposition: 18:25
[2022-08-08 17:36] LABS: INR 1.1 (<1.2); Prothrombin Time 11.6 sec (9.0-12.0)
--- NOTE | 2022-08-08 18:18 | CT ---
EXAMINATION TYPE: CT abdomen pelvis w con DATE OF EXAM: 08/08/2022 COMPARISON: None HISTORY: LLQ pain and rectal bleeding. GI bleed protocol CT DLP: 3497.1 mGycm Automated exposure control for dose reduction was used. CONTRAST: Performed without and with IV Contrast, patient injected with 80 mL of Isovue 370. Images obtained from the diaphragm to the floor the pelvis without and with the IV contrast according to the GI bleed protocol. Lung bases are clear of consolidation. No pleural effusion. Heart size is normal. No pericardial effu regan. Liver spleen stomach and pancreas appear intact. Gallbladder is absent. The bile duct are not d ilated. There is no adrenal mass. There is a 1.5 cm cyst in the right lobe of the liver. Kidneys show satisfa ctory contrast opacification. No hydronephrosis. Ureters are not dilated. No retroperitoneal adenopat hy. Appendix is posterior and appears normal. The bladder distends smoothly. There is right hip prost hesis. There are numerous sigmoid diverticula. No diverticulitis. No mesenteric edema. No ascites or free air. No sign of bowel obstruction. There is arterial flow in the celiac artery and superior mesenteric artery. There is arterial flow in the renal and iliac and femoral arteries. No evidence of hemodynamic stenosis. No evidence of contra st extravasation. The lumbar spine shows normal alignment. There is slight wedging of L3 vertebra 20%. There is also sl ight depression of the L1 vertebral body superior endplate 15%. There is right hip prosthesis. Bony p janie is intact. IMPRESSION: Sigmoid diverticulosis. No evidence of active GI bleeding. Normal appendix. Lumbar compression fractu res of uncertain age.
[2022-08-08] MEDS ORDERED: PANTOPRAZOLE 40 MG/10 ML VIAL IVP STA (18:43)
[2022-08-08] MEDS ORDERED: NALOXONE 0.4 MG/ML 1 ML VIAL IV PRN (18:57)
[2022-08-08] MEDS ORDERED: SODIUM CHLORIDE 0.9% 500 ML 500 ML IV STA (18:57)
[2022-08-08 20:24] LABS: Appearance,Urine Clear (Clear); Bacteria,Urine Rare /hpf; Bilirubin,Urine Negative (Negative); Blood,Urine Moderate (Negative); Color,Urine Light Yellow; Glucose,Urine (UA) Negative (Negative); Ketones,Urine Negative (Negative); Leukocyte Esterase,Urine Large (Negative); Nitrite,Urine Positive (Negative); PH, Urine 6.5 (5.0-8.0); Protein,Urine Negative (Negative); RBC,Urine 46 /hpf (0-5); Squamous Epithelial Cell,Urine <1 /hpf (0-4); Urobilinogen,Urine <2.0 mg/dL (<2.0); WBC,Urine 29 /hpf (0-5)
--- NOTE | 2022-08-08 21:30 | P.HPIM ---
History of Present Illness H&P Date: 08/08/22 Chief Complaint: GI bleed 82 year old female with afib on xarelto, hypothyroid ,a nd hypertension patient comes in for evaluation of bright red blood per rectum. she noticed that suddenly since last night, and had noticed blood in the toilet bowl with all her 4 bowel movements. she denies vaginal bleeding or hematuria , denies hematemasis. denies any associated chest pain , dizziness , lightheadedness. she reports history of GI bleeding many years ago. and she has history of hemorrhoids. patient was started on xarelto about a month or two ago , after being diagnosed with afib post left knee surgery while in the hospital. she denies taking any NSAIDs, denies any epigastric abd pain. she reports brief LLQ abd pain that since has resolved. in the ED blood work showed normal hemoglobin , blood work overall unremarkable. except for slightly elevated lactic acid. CT abd/pelvis showed sigmoid diverticuli , no active GI bleeding Review of Systems Pertinent positives as noted in HPI. All other systems were reviewed and are ne gative Past Medical History Past Medical History: Cancer, Deep Vein Thrombosis (DVT), Hyperlipidemia, Hypertension, Osteoarthritis (OA), Thyroid Disorder Additional Past Medical History / Comment(s): HX DVT 2008., chronic UTI's, varic ose veins, constipation, hx "ischemic colitis" 2010, skin cancer, SPINAL STENOSIS, NT left LEG/FOOT- USES WALKER., collapsed tendon left foot., ?duodenal ulcer History of Any Multi-Drug Resistant Organisms: None Reported Past Surgical History: Bladder Surgery, Cholecystectomy, Hysterectomy, Joint Replacement, Orthopedic Surgery Additional Past Surgical History / Comment(s): Parathyroidectomy, Bladder suspension, smita and screws right femur. Cortisone injection, pain clinic procedures. rt hip replacement, rt knee replacement 06/2021, lakisha cataracts., lap jasvir with EGD 09/13/21 Past Anesthesia/Blood Transfusion Reactions: No Reported Reaction Past Psychological History: Depression Smoking Status: Never smoker Past Alcohol Use History: None Reported Past Drug Use History: None Reported - Past Family History Father Family Medical History: Cancer Additional Family Medical History / Comment(s): LUNG CANCER Mother Family Medical History: Cancer Additional Family Medical History / Comment(s): Breast Cancer. Medications and Allergies Home Medications Medication Instructions Recorded Confirmed Type Methenamine Hippurate [Hiprex] 1 gm PO QID 09/08/18 08/08/22 History Metoprolol Tartrate [Lopressor] 25 mg PO BID 09/08/18 08/08/22 History Vit C/E/Zn/Coppr/Lutein/Zeaxan 2 cap PO W/SUPPER 02/22/19 08/08/22 History [Preservision Areds 2 Softgel] hydroCHLOROthiazide 25 mg PO DAILY 03/21/19 08/08/22 History DULoxetine HCL [Cymbalta] 60 mg PO DAILY 11/19/20 08/08/22 History Pravastatin Sodium [Pravachol] 20 mg PO HS 01/10/21 08/08/22 History Losartan Potassium [Cozaar] 100 mg PO DAILY 06/25/21 08/08/22 History Cholecalciferol [Vitamin D3 (25 50 mcg PO DAILY 07/17/21 08/08/22 History Mcg = 1000 Iu)] Ascorbic Acid [Vitamin C] 500 mg PO DAILY 11/08/21 08/08/22 History Multivit with Calcium,Iron,Min 1 tab PO DAILY 11/08/21 08/08/22 History [Women's Multivitamin] busPIRone HCL 10 mg PO BID 05/30/22 08/08/22 History Rivaroxaban [Xarelto] 20 mg PO W/SUPPER #30 tab 06/05/22 08/08/22 Rx DULoxetine HCL [Cymbalta] 30 mg PO DAILY 08/08/22 08/08/22 History HYDROcodone/APAP 7.5-325MG [[place] [facility] 1 tab PO HS 08/08/22 08/08/22 History 7.5] Levothyroxine Sodium [Synthroid] 112 mcg PO DAILY 08/08/22 08/08/22 History Pantoprazole [Protonix] 40 mg PO DAILY 08/08/22 08/08/22 History Allergies Allergy/AdvReac Type Severity Reaction Status Date / Time Sulfa (Sulfonamide Allergy Rash/Hives Verified 08/08/22 19:11 Antibiotics) Physical Exam Vitals: Vital Signs Temp Pulse Resp BP Pulse Ox 08/08/22 17:27 65 18 134/63 97 08/08/22 13:13 97.7 F 78 16 135/78 100 Intake and Output 08/08/22 08/08/22 08/08/22 06:59 14:59 22:59 Other: Weight 83.915 kg Constitutional: No acute distress, conversant, pleasant Eyes: Anicteric sclerae, moist conjunctiva, Pupils equal round reactive to light ENMT: NC/AT Oropharynx clear, no erythema, or exudates Neck: Supple, no masses, or JVD No carotid bruits No thyromegaly Lungs: Clear to auscultation Clear to percussion Normal respiratory effort, no accessory muscle use Cardiovascular: Heart regular in rate and rhythm, No murmurs, gallops, or rubs No peripheral edema Abdominal: Soft Nontender, no guarding, rebound or rigidity Abdomen moving with respiration Normoactive bowel sounds No hepatomegaly, No splenomegaly No palpable mass No abdominal wall hernia noted Skin: Normal temperature, tone, texture, turgor No induration No subcutaneous nodules No rash, lesions No ulcers Extremities: No digital cyanosis No clubbing Pedal pulses intact and symmetrical Radial pulses intact and symmetrical No calf tenderness Psychiatric: Alert and oriented to person, place and time Appropriate affect fair judgement Neuro Muscles Strength 5/5 in all 4 extremities Sensation to light touch grossly present throughout Cranial nerves II-XII grossly intact No focal sensory deficits Lymphatics: no palpable cervical or supraclavicular lymph nodes Results CBC & Chem 7: 08/08/22 14:40 08/08/22 14:40 Labs: Abnormal Lab Results - Last 24 Hours (Table) 08/08/22 08/08/22 08/08/22 Range/Units 14:40 16:01 16:19 BUN 22 H (7-17) mg/dL Glucose 146 H (74-99) mg/dL Plasma Lactic Acid Iftikhar 2.1 H* (0.7-2.0) mmol/L Stool Occult Blood Positive H (Negative) Assessment and Plan Assessment: GI bleeding hemoglobin stable CT abd / pelvis reviewed, no active GI bleeding IVF hydration with nomral saline hold xarelto Gen Surg consult liquid diet monitor hemoglobin chronic conditions hypertension , controlled resume home meds P. afib , hold xarelto secondary to GI bleeding hypothyroid resume levothyroxin full code DVT PPX mechanical
[2022-08-08] MEDS: HYDROcodone/APAP 7.5-325MG 1 EACH TAB PO SCH (21:58)
[2022-08-08] MEDS: SODIUM CHLORIDE 0.9% 1,000 ML IV SCH (21:59)
[2022-08-09] MEDS: MELATONIN 3 MG TABLET PO SCH ×2 (00:11→19:54)
[2022-08-09 00:23] LABS: Basophils # (A) 0.1 k/uL (0-0.2); Basophils % (A) 1 %; Eosinophils # (A) 0.3 k/uL (0-0.7); Eosinophils % (A) 4 %; HCT 35.6 % (34.0-46.0); HGB 11.6 gm/dL (11.4-16.0); Hypochromasia Slight; Lymphocytes # (A) 1.6 k/uL (1.0-4.8); Lymphocytes % (A) 24 %; MCH 29.9 pg (25.0-35.0); MCHC 32.7 g/dL (31.0-37.0); MCV 91.4 fL (80.0-100.0); Mean Platelet Volume 7.8; Monocytes # (A) 0.8 k/uL (0-1.0); Monocytes % (A) 11 %; Neutrophils # (A) 3.9 k/uL (1.3-7.7); Neutrophils % (A) 58 %; Platelet Count 246 k/uL (150-450); RDW 13.8 % (11.5-15.5); WBC 6.7 k/uL (3.8-10.6)
[2022-08-09] MEDS: LEVOTHYROXINE 112 MCG TAB PO SCH (06:19)
[2022-08-09 07:46] LABS: Basophils # (A) 0.1 k/uL (0-0.2); Basophils % (A) 1 %; Eosinophils # (A) 0.3 k/uL (0-0.7); Eosinophils % (A) 5 %; HCT 35.1 % (34.0-46.0); HGB 11.4 gm/dL (11.4-16.0); Hypochromasia Slight; Lymphocytes # (A) 1.5 k/uL (1.0-4.8); Lymphocytes % (A) 25 %; MCH 29.6 pg (25.0-35.0); MCHC 32.5 g/dL (31.0-37.0); MCV 91.2 fL (80.0-100.0); Mean Platelet Volume 7.8; Monocytes # (A) 0.6 k/uL (0-1.0); Monocytes % (A) 10 %; Neutrophils # (A) 3.3 k/uL (1.3-7.7); Neutrophils % (A) 57 %; Platelet Count 255 k/uL (150-450); RBC 3.85 m/uL (3.80-5.40); RDW 13.7 % (11.5-15.5); WBC 5.8 k/uL (3.8-10.6)
[2022-08-09] MEDS: PANTOPRAZOLE 40 MG/10 ML VIAL IVP SCH (07:52)
[2022-08-09] MEDS: LOSARTAN 50 MG TAB PO SCH (07:52)
[2022-08-09] MEDS: DULoxetine HCL 60 MG CAPSULE.DR PO SCH (07:52)
[2022-08-09] MEDS: METOPROLOL TARTRATE 25 MG TAB PO SCH ×2 (07:52→19:54)
[2022-08-09] MEDS: busPIRone HCl 10 MG TAB PO SCH ×2 (07:52→19:54)
[2022-08-09] MEDS: hydroCHLOROthiazide 25 MG TAB PO SCH (07:52)
[2022-08-09 07:57] LABS: African American GFR (CKD) 85 (>60 ml/min/1.73 sqM); Anion Gap 8 mmol/L; Blood Urea Nitrogen 18 mg/dL (7-17); Calcium 9.2 mg/dL (8.4-10.2); Carbon Dioxide 26 mmol/L (22-30); Chloride 106 mmol/L (98-107); Glucose 93 mg/dL (74-99); Non-African American GFR(CKD) 74 (>60 ml/min/1.73 sqM); Potassium 3.9 mmol/L (3.5-5.1); Sodium 140 mmol/L (137-145)
--- NOTE | 2022-08-09 09:20 | P.PN ---
Subjective Progress Note Date: 08/09/22 Principal diagnosis: GI bleed Patient is an 82-year-old female with a history of atrial fibrillation on xarelto, HTN, Hypothyroidism, and DVT who presented to the hospital with bright red blood per rectum. In the ER she underwent an extensive evaluation. Her initial vital signs were within normal limits. Initial laboratory analysis was unremarkable. CT abdomen and pelvis showed sigmoid diverticulitis and lumbar compression fractures of undetermined age. She was placed in observation. She had serial hemoglobins remained stable. She continued to have some bright red blood per rectum. She was seen by surgery who recommended colonoscopy on 08/11. Patient seen and examined at bedside. She denies any chest pain, shortness of breath, lightheadedness. She has had several bowel movements since admission. Some of them did not have blood but she had blood chemistries morning. She is concerned that it's possibly hemorrhoid. General: Assessment/plan: , no distress, appears at stated age Derm: warm, dry Head: atraumatic, normocephalic, symmetric Eyes: EOMI, no lid lag, anicteric sclera Mouth: no lip lesion, mucus membranes moist Cardiovascular: S1S2 reg, no murmur, positive posterior tibial pulse bilateral, Lungs: CTA bilateral, no rhonchi, no rales , no accessory muscle use Abdominal: soft, nontender to palpation, no guarding, no appreciable or ganomegaly Ext: no gross muscle atrophy, no edema, no contractures Neuro: CN II-XI grossly intact, no focal neuro deficits Psych: Alert, oriented, appropriate affect Assessment/plan: Bright red blood per rectum GI bleed -Suspect diverticular bleed versus hemorrhoidal bleed -Allow for clear liquid diet -Surgery recommendations appreciated anticipate normal scan 08/11/22 -Follow CBC - PPI Paroxysmal atrial fibrillation with controlled ventricular response -Xarelto on hold secondary to probable GI bleed -Continue with Lopressor Hypertension, controlled -Continue with Lopressor, hydrochlorothiazide, and Cozaar -Follow blood pressures Hypothyroidism -Synthroid DVT prophylaxis: SCDs Discussed with: nursing, patient Anticipated discharge: on 08/[address]: home A total of 20 minutes was spent on the care of this complex patient more than 50% of the time was spent in counseling and care coordination. Active Medications Generic Name Dose Route Start Last Admin Trade Name Freq PRN Reason Stop Dose Admin Hydrocodone Bitart/Acetaminophen 1 each 10/28/22 21:45 08/08/22 21:58 Hydrocodone/Apap 7.5-325mg 1 Each Tab PO 1 each HS AIMEE Administration Buspirone HCl 10 mg 08/09/22 09:00 08/09/22 07:52 Buspirone Hcl 10 Mg Tab PO 10 mg BID AIMEE Administration Duloxetine HCl 60 mg 08/09/22 09:00 08/09/22 07:52 Duloxetine Hcl 60 Mg Capsule.Dr PO 60 mg DAILY AIMEE Administration Hydrochlorothiazide 25 mg 08/09/22 09:00 08/09/22 07:52 Hydrochlorothiazide 25 Mg Tab PO 25 mg DAILY AIMEE Administration Sodium Chloride 1,000 mls @ 75 mls/hr 08/08/22 21:45 08/08/22 21:59 Saline 0.9% IV 75 mls/hr .[id number] AIMEE Administration Levothyroxine Sodium 112 mcg 08/09/22 06:30 08/09/22 06:19 Levothyroxine 112 Mcg Tab PO 112 mcg 0630 AIMEE Administration Losartan Potassium 100 mg 08/09/22 09:00 08/09/22 07:52 Losartan 50 Mg Tab PO 100 mg DAILY AIMEE Administration Melatonin 3 mg 08/09/22 00:15 08/09/22 00:11 Melatonin 3 Mg Tablet PO 3 mg HS AIMEE Administration Metoprolol Tartrate 25 mg 08/09/22 09:00 08/09/22 07:52 Metoprolol Tartrate 25 Mg Tab PO 25 mg BID AIMEE Administration Naloxone HCl 0.2 mg 08/08/22 18:57 Naloxone 0.4 Mg/Ml 1 Ml Vial IV Q2M PRN Opioid Reversal Pantoprazole Sodium 40 mg 08/09/22 09:00 08/09/22 07:52 Pantoprazole 40 Mg/10 Ml Vial IVP 40 mg DAILY AIMEE Administration Pravastatin Sodium 20 mg 08/09/22 21:00 Pravastatin Sodium 20 Mg Tab PO HS AIMEE Objective - Vital Signs Vital signs: Vital Signs Temp 97.8 F 08/09/22 07:00 Pulse 79 08/09/22 07:00 Resp 18 08/09/22 07:00 BP 147/81 08/09/22 07:00 Pulse Ox 97 08/09/22 07:00 FiO2 Intake & Output 08/08/22 08/09/22 08/09/22 18:59 06:59 18:59 Intake Total 125 Balance 125 Weight 83.915 kg 83.915 kg Intake: Oral 125 Other: # Voids 3 - Labs CBC & Chem 7: 08/09/22 06:25 08/09/22 06:25 Labs: Abnormal Lab Results - Last 24 Hours (Table) 08/08/22 08/08/22 08/08/22 Range/Units 14:40 16:01 16:19 BUN 22 H (7-17) mg/dL Glucose 146 H (74-99) mg/dL Plasma Lactic Acid Iftikhar 2.1 H* (0.7-2.0) mmol/L Ur Specific [place] (1.001-1.035) Urine Blood (Negative) Urine Nitrite (Negative) Ur Leukocyte Esterase (Negative) Urine RBC (0-5) /hpf Urine WBC (0-5) /hpf Urine Bacteria (None) /hpf Stool Occult Blood Positive H (Negative) 08/08/22 08/09/22 Range/Units 19:31 06:25 BUN 18 H (7-17) mg/dL Glucose (74-99) mg/dL Plasma Lactic Acid [place] (0.7-2.0) mmol/L Ur Specific [place] 1.050 H (1.001-1.035) Urine Blood Moderate H (Negative) Urine Nitrite Positive H (Negative) Ur Leukocyte Esterase Large H (Negative) Urine RBC 46 H (0-5) /hpf Urine WBC 29 H (0-5) /hpf Urine Bacteria Rare H (None) /hpf Stool Occult Blood (Negative) Microbiology - Last 24 Hours (Table) 08/08/22 19:31 Urine Culture - Preliminary Urine,Voided
--- NOTE | 2022-08-09 09:29 | P.GSCN ---
History of Present Illness Consult date: 08/09/22 Reason for Consult: GI bleed History of present illness: This is a 2-year-old female who's had multiple bloody bowel movements. Patient describes having blood in the stool in the [place] when having bowel movements. Patient has a history of blood thinners. Past Medical History Past Medical History: Cancer, Deep Vein Thrombosis (DVT), Hyperlipidemia, Hypertension, Osteoarthritis (OA), Thyroid Disorder Additional Past Medical History / Comment(s): HX DVT 2008., chronic UTI's, varicose veins, constipation, hx "ischemic colitis" 2010, skin cancer, SPINAL STENOSIS, NT left LEG/FOOT- USES WALKER., collapsed tendon left foot., ?duodenal ulcer History of Any Multi-Drug Resistant Organisms: None Reported Past Surgical History: Bladder Surgery, Cholecystectomy, Hysterectomy, Joint Replacement, Orthopedic Surgery Additional Past Surgical History / Comment(s): Parathyroidectomy, Bladder suspension, smita and screws right femur. Cortisone injection, pain clinic procedures. rt hip replacement, rt knee replacement 06/2021, lakisha cataracts., lap jasvir with EGD 09/13/21 Past Anesthesia/Blood Transfusion Reactions: No Reported Reaction Past Psychological History: Depression Smoking Status: Never smoker Past Alcohol Use History: None Reported Past Drug Use History: None Reported - Past Family History Father Family Medical History: Cancer Additional Family Medical History / Comment(s): LUNG CANCER Mother Family Medical History: Cancer Additional Family Medical History / Comment(s): Breast Cancer. Medications and Allergies Home Medications Medication Instructions Recorded Confirmed Type Methenamine Hippurate [Hiprex] 1 gm PO QID 09/08/18 08/08/22 History Metoprolol Tartrate [Lopressor] 25 mg PO BID 09/08/18 08/08/22 History Vit C/E/Zn/Coppr/Lutein/Zeaxan 2 cap PO W/SUPPER 02/22/19 08/08/22 History [Preservision Areds 2 Softgel] hydroCHLOROthiazide 25 mg PO DAILY 03/21/19 08/08/22 History DULoxetine HCL [Cymbalta] 60 mg PO DAILY 11/19/20 08/08/22 History Pravastatin Sodium [Pravachol] 20 mg PO HS 01/10/21 08/08/22 History Losartan Potassium [Cozaar] 100 mg PO DAILY 06/25/21 08/08/22 History Cholecalciferol [Vitamin D3 (25 50 mcg PO DAILY 07/17/21 08/08/22 History Mcg = 1000 Iu)] Ascorbic Acid [Vitamin C] 500 mg PO DAILY 11/08/21 08/08/22 History Multivit with Calcium,Iron,Min 1 tab PO DAILY 11/08/21 08/08/22 History [Women's Multivitamin] busPIRone HCL 10 mg PO BID 05/30/22 08/08/22 History Rivaroxaban [Xarelto] 20 mg PO W/SUPPER #30 tab 06/05/22 08/08/22 Rx DULoxetine HCL [Cymbalta] 30 mg PO DAILY 08/08/22 08/08/22 History HYDROcodone/APAP 7.5-325MG [[place] 1 tab PO HS 08/08/22 08/08/22 History 7.5] Levothyroxine Sodium [Synthroid] 112 mcg PO DAILY 08/08/22 08/08/22 History Pantoprazole [Protonix] 40 mg PO DAILY 08/08/22 08/08/22 History Allergies Allergy/AdvReac Type Severity Reaction Status Date / Time Sulfa (Sulfonamide Allergy Rash/Hives Verified 08/08/22 19:11 Antibiotics) Surgical - Exam Vital Signs Temp Pulse Resp BP Pulse Ox 97.7 F 78 16 135/78 100 08/08/22 13:13 08/08/22 13:13 08/08/22 13:13 08/08/22 13:13 08/08/22 13:13 - General well developed, well nourished, no distress - Eyes PERRL - ENT normal pinna - Neck no masses - Respiratory normal expansion - Cardiovascular Rhythm: regular - Abdomen Abdomen: soft, non tender Results - Labs 08/09/22 06:25 08/09/22 06:25 Abnormal Lab Results - Last 24 Hours (Table) 08/08/22 08/08/22 08/08/22 Range/Units 14:40 16:01 16:19 BUN 22 H (7-17) mg/dL Glucose 146 H (74-99) mg/dL Plasma Lactic Acid Iftikhar 2.1 H* (0.7-2.0) mmol/L Ur Specific [place] (1.001-1.035) Urine Blood (Negative) Urine Nitrite (Negative) Ur Leukocyte Esterase (Negative) Urine RBC (0-5) /hpf Urine WBC (0-5) /hpf Urine Bacteria (None) /hpf Stool Occult Blood Positive H (Negative) 08/08/22 08/09/22 Range/Units 19:31 06:25 BUN 18 H (7-17) mg/dL Glucose (74-99) mg/dL Plasma Lactic Acid Iftikhar (0.7-2.0) mmol/L Ur Specific [place] 1.050 H (1.001-1.035) Urine Blood Moderate H (Negative) Urine Nitrite Positive H (Negative) Ur Leukocyte Esterase Large H (Negative) Urine RBC 46 H (0-5) /hpf Urine WBC 29 H (0-5) /hpf Urine Bacteria Rare H (None) /hpf Stool Occult Blood (Negative) Microbiology - Last 24 Hours (Table) 08/08/22 19:31 Urine Culture - Preliminary Urine,Voided Diabetes panel 08/08/22 08/09/22 Range/Units 14:40 06:25 Sodium 143 140 (137-145) mmol/L Potassium 4.0 3.9 (3.5-5.1) mmol/L Chloride 103 106 (98-107) mmol/L Carbon Dioxide 26 26 (22-30) mmol/L BUN 22 H 18 H (7-17) mg/dL Creatinine 0.98 0.76 (0.52-1.04) mg/dL Glucose 146 H 93 (74-99) mg/dL Calcium 9.9 9.2 (8.4-10.2) mg/dL AST 21 (14-36) U/L ALT 17 (4-34) U/L Alkaline Phosphatase 115 (38-126) U/L Total Protein 7.0 (6.3-8.2) g/dL Albumin 4.0 (3.5-5.0) g/dL Calcium panel 08/08/22 08/09/22 Range/Units 14:40 06:25 Calcium 9.9 9.2 (8.4-10.2) mg/dL Albumin 4.0 (3.5-5.0) g/dL Pituitary panel 08/08/22 08/09/22 Range/Units 14:40 06:25 Sodium 143 140 (137-145) mmol/L Potassium 4.0 3.9 (3.5-5.1) mmol/L Chloride 103 106 (98-107) mmol/L Carbon Dioxide 26 26 (22-30) mmol/L BUN 22 H 18 H (7-17) mg/dL Creatinine 0.98 0.76 (0.52-1.04) mg/dL Glucose 146 H 93 (74-99) mg/dL Calcium 9.9 9.2 (8.4-10.2) mg/dL Adrenal panel 08/08/22 08/09/22 Range/Units 14:40 06:25 Sodium 143 140 (137-145) mmol/L Potassium 4.0 3.9 (3.5-5.1) mmol/L Chloride 103 106 (98-107) mmol/L Carbon Dioxide 26 26 (22-30) mmol/L BUN 22 H 18 H (7-17) mg/dL Creatinine 0.98 0.76 (0.52-1.04) mg/dL Glucose 146 H 93 (74-99) mg/dL Calcium 9.9 9.2 (8.4-10.2) mg/dL Total Bilirubin 0.4 (0.2-1.3) mg/dL AST 21 (14-36) U/L ALT 17 (4-34) U/L Alkaline Phosphatase 115 (38-126) U/L Total Protein 7.0 (6.3-8.2) g/dL Albumin 4.0 (3.5-5.0) g/dL Assessment and Plan Assessment: Rectal bleeding patient will undergo colonoscopy on Thursday. She'll be unde rgoing bowel prep tomorrow.
[2022-08-09] MEDS: SODIUM CHLORIDE 0.9% 1,000 ML IV SCH (09:34)
[2022-08-09 17:25] LABS: African American GFR (CKD) 66 (>60 ml/min/1.73 sqM); Anion Gap 9 mmol/L; Blood Urea Nitrogen 19 mg/dL (7-17); Carbon Dioxide 27 mmol/L (22-30); Chloride 103 mmol/L (98-107); Glucose 112 mg/dL (74-99); Non-African American GFR(CKD) 57 (>60 ml/min/1.73 sqM); Potassium 4.1 mmol/L (3.5-5.1); Sodium 139 mmol/L (137-145)
[2022-08-09] MEDS: HYDROcodone/APAP 7.5-325MG 1 EACH TAB PO SCH (19:53)
[2022-08-09] MEDS: PRAVASTATIN SODIUM 20 MG TAB PO SCH (19:54)
[2022-08-10] MEDS: LEVOTHYROXINE 112 MCG TAB PO SCH (05:56)
[2022-08-10] MEDS: SODIUM CHLORIDE 0.9% 1,000 ML IV SCH ×2 (05:57→11:51)
[2022-08-10] MEDS: METOPROLOL TARTRATE 25 MG TAB PO SCH ×2 (07:29→20:29)
[2022-08-10] MEDS: LOSARTAN 50 MG TAB PO SCH (07:29)
[2022-08-10] MEDS: DULoxetine HCL 60 MG CAPSULE.DR PO SCH (07:29)
[2022-08-10] MEDS: PANTOPRAZOLE 40 MG/10 ML VIAL IVP SCH (07:30)
[2022-08-10] MEDS: busPIRone HCl 10 MG TAB PO SCH ×2 (07:30→20:29)
[2022-08-10] MEDS: hydroCHLOROthiazide 25 MG TAB PO SCH (07:30)
[2022-08-10 08:30] LABS: African American GFR (CKD) 65 (>60 ml/min/1.73 sqM); Anion Gap 8 mmol/L; Blood Urea Nitrogen 23 mg/dL (7-17); Calcium 8.9 mg/dL (8.4-10.2); Carbon Dioxide 26 mmol/L (22-30); Chloride 105 mmol/L (98-107); Glucose 93 mg/dL (74-99); Non-African American GFR(CKD) 56 (>60 ml/min/1.73 sqM); Sodium 139 mmol/L (137-145)
[2022-08-10] MEDS ORDERED: PEG 3350 (236 GM/BTL) + LYTES 4,000 ML BOTTLE PO ONE (08:30)
[2022-08-10 08:36] LABS: Potassium 4.1 mmol/L (3.5-5.1)
--- NOTE | 2022-08-10 09:06 | P.PN ---
Subjective Progress Note Date: 08/10/22 Principal diagnosis: GI bleed Patient is an 82-year-old female with a history of atrial fibrillation on xarelto, HTN, Hypothyroidism, and DVT who presented to the hospital with bright red blood per rectum. In the ER she underwent an extensive evaluation. Her initial vital signs were within normal limits. Initial laboratory analysis was unremarkable. CT abdomen and pelvis showed sigmoid diverticulitis and lumbar compression fractures of undetermined age. She was placed in observation. She had serial hemoglobins remained stable. She continued to have some bright red blood per rectum. She was seen by surgery who recommended colonoscopy on 08/11. Patient seen and examined at bedside. She reports that she continues to have blood in the toilet every time she goes to the bathroom or white. She denies any abdominal pain. She states she is having frequent urination. We discussed that her urinalysis is not consistent with urinary tract infection. She does believe that the blood is coming from her rectal area. This sounds consistent with a hemorrhoidal bleed. General: Assessment/plan: , no distress, appears at stated age Derm: warm, dry Head: atraumatic, normocephalic, symmetric Eyes: EOMI, no lid lag, anicteric sclera Mouth: no lip lesion, mucus membranes moist Cardiovascular: S1S2 reg, no murmur, positive posterior tibial pulse bilateral, Lungs: CTA bilateral, no rhonchi, no rales , no accessory muscle use Abdominal: soft, nontender to palpation, no guarding, no appreciable organomegaly Ext: no gross muscle atrophy, no edema, no contractures Neuro: CN II-XI grossly intact, no focal neuro deficits Psych: Alert, oriented, appropriate affect Assessment/plan: Bright red blood per rectum GI bleed -Suspect diverticular bleed versus hemorrhoidal bleed -Surgery recommendations appreciated anticipate Colonoscopy 08/11/22 -Follow CBC, awaiting morning labs - PPI Paroxysmal atrial fibrillation with controlled ventricular response -Xarelto on hold secondary to probable GI bleed -Continue with Lopressor Hypertension, controlled -Continue with Lopressor, hydrochlorothiazide, and Cozaar -Follow blood pressures Hypothyroidism -Synthroid DVT prophylaxis: SCDs Discussed with: nursing, patient Anticipated discharge: on 08/[address]: home A total of 20 minutes was spent on the care of this complex patient more than 50% of the time was spent in counseling and care coordination. Active Medications Hydrocodone Bitart/Acetaminophen (Hydrocodone/Apap 7.5-325mg 1 Each Tab) 1 each PO HS [facility] Last Admin: 08/09/22 19:53 Dose: 1 each Buspirone HCl (Buspirone Hcl 10 Mg Tab) 10 mg PO BID [facility] Last Admin: 08/10/22 07:30 Dose: 10 mg Duloxetine HCl (Duloxetine Hcl 60 Mg Capsule.Dr) 60 mg PO DAILY [facility] Last Admin: 08/10/22 07:29 Dose: 60 mg Hydrochlorothiazide (Hydrochlorothiazide 25 Mg Tab) 25 mg PO DAILY [facility] Last Admin: 08/10/22 07:30 Dose: 25 mg Sodium Chloride (Saline 0.9%) 1,000 mls @ 75 mls/hr IV .[id number] [facility] Last Admin: 08/10/22 05:57 Dose: 75 mls/hr Levothyroxine Sodium (Levothyroxine 112 Mcg Tab) 112 mcg PO 0630 [facility] Last Admin: 08/10/22 05:56 Dose: 112 mcg Losartan Potassium (Losartan 50 Mg Tab) 100 mg PO DAILY [facility] Last Admin: 08/10/22 07:29 Dose: 100 mg Melatonin (Melatonin 3 Mg Tablet) 3 mg PO HS [facility] Last Admin: 08/09/22 19:54 Dose: 3 mg Metoprolol Tartrate (Metoprolol Tartrate 25 Mg Tab) 25 mg PO BID [facility] Last Admin: 08/10/22 07:29 Dose: 25 mg Naloxone HCl (Naloxone 0.4 Mg/Ml 1 Ml Vial) 0.2 mg IV Q2M PRN PRN Reason: Opioid Reversal Pantoprazole Sodium (Pantoprazole 40 Mg/10 Ml Vial) 40 mg IVP DAILY [facility] Last Admin: 08/10/22 07:30 Dose: 40 mg Pravastatin Sodium (Pravastatin Sodium 20 Mg Tab) 20 mg PO HS [facility] Last Admin: 08/09/22 19:54 Dose: 20 mg Objective - Vital Signs Vital signs: Vital Signs Temp 98.0 F 08/10/22 02:53 Pulse 62 08/10/22 02:53 Resp 16 08/10/22 02:53 BP 142/73 08/10/22 02:53 Pulse Ox 95 08/10/22 02:53 FiO2 Intake & Output 08/09/22 08/10/22 08/10/22 18:59 06:59 18:59 Intake Total 125 Balance 125 Intake: Oral 125 Other: # Voids 3 2 - Labs CBC & Chem 7: 08/09/22 06:25 08/10/22 07:27 Labs: Abnormal Lab Results - Last 24 Hours (Table) 08/09/22 08/10/22 Range/Units 16:50 07:27 BUN 19 H 23 H (7-17) mg/dL Glucose 112 H (74-99) mg/dL
[2022-08-10 09:10] LABS: HGB 11.4 gm/dL (11.4-16.0); Hypochromasia Slight; MCHC 31.5 g/dL (31.0-37.0); MCV 91.9 fL (80.0-100.0); Mean Platelet Volume 8.2; Platelet Count 224 k/uL (150-450); RBC 3.92 m/uL (3.80-5.40); RDW 14.2 % (11.5-15.5); WBC 5.5 k/uL (3.8-10.6)
--- NOTE | 2022-08-10 13:54 | P.PN ---
Progress Note - Text Progress Note Date: 08/10/22 Patient still complaints of some minimal rectal bleeding. Her he will was stable in the 12 range. On exam vital signs are stable. Abdomen soft. Patient will undergo colonoscopy in the a.m.
[2022-08-10] MEDS: HYDROcodone/APAP 7.5-325MG 1 EACH TAB PO SCH (20:29)
[2022-08-10] MEDS: PRAVASTATIN SODIUM 20 MG TAB PO SCH (20:29)
[2022-08-10] MEDS: MELATONIN 3 MG TABLET PO SCH (20:30)
[2022-08-11 05:35] VITALS: RESP 16
[2022-08-11] MEDS: SODIUM CHLORIDE 0.9% 1,000 ML IV SCH (06:24)
[2022-08-11] MEDS: LEVOTHYROXINE 112 MCG TAB PO SCH (06:33)
[2022-08-11] MEDS: DULoxetine HCL 60 MG CAPSULE.DR PO SCH (09:10)
[2022-08-11] MEDS: busPIRone HCl 10 MG TAB PO SCH (09:10)
[2022-08-11] MEDS: PANTOPRAZOLE 40 MG/10 ML VIAL IVP SCH (09:10)
[2022-08-11] MEDS: METOPROLOL TARTRATE 25 MG TAB PO SCH (09:10)
[2022-08-11] MEDS: LOSARTAN 50 MG TAB PO SCH (09:10)
[2022-08-11] MEDS: hydroCHLOROthiazide 25 MG TAB PO SCH (09:11)
[2022-08-11 10:19] LABS: HCT 39.8 % (34.0-46.0); HGB 12.9 gm/dL (11.4-16.0); MCH 29.2 pg (25.0-35.0); MCHC 32.3 g/dL (31.0-37.0); MCV 90.3 fL (80.0-100.0); Mean Platelet Volume 7.8; Platelet Count 267 k/uL (150-450); RBC 4.41 m/uL (3.80-5.40); RDW 14.1 % (11.5-15.5); WBC 5.7 k/uL (3.8-10.6)
[2022-08-11] MEDS ORDERED: PROPOFOL 10 MG/ML 20 ML VIAL IV ONE (10:21)
[2022-08-11] MEDS ORDERED: LACTATED RINGERS 1,000 ML IV ONE ×2 (10:26)
--- NOTE | 2022-08-11 10:41 | P.OP ---
Date of Procedure: 08/11/22 Preoperative Diagnosis: GI bleed Postoperative Diagnosis: Diverticulosis External hemorrhoids Procedure(s) Performed: Colonoscopy Anesthesia: MAC Surgeon: Andres Hope Pathology: none sent Condition: stable Disposition: floor Description of Procedure: The patient's placed on the endoscopy table lateral position. Digital rectal exam was performed. There were significant external hemorrhage. The flexible colonoscope was then placed patient anus passed with colon. The scope couldn't be passed beyond the left colon secondary to tortuosity of the colon and significant diverticular disease. Scope was withdrawn. The pediatric scope was inserted and this was placed throughout the colon. However the scope couldn't pass beyond the left colon secondary to tortuosity valve. This point scope withdrawn. There is extensive diverticular changes. The scope was brought back the rectum and this appeared normal. Scope withdrawn for patient and external hemorrhoids were noted. There is no evidence of any active GI bleed. Presumed patient's bleeding from hemorrhoids. Patient be scheduled for a barium enema to evaluate the right colon.
[2022-08-11 13:46] VITALS: BP 129/75; PULSE 64; TEMP 97.9
--- NOTE | 2022-08-11 15:24 | FL ---
EXAMINATION TYPE: FL barium enema w air contrast DATE OF EXAM: 08/11/2022 COMPARISON: None HISTORY: GI bleeding complete colonoscopy TECHNIQUE: Single contrast technique was utilized due to patient's mobility. Patient was very coopera tive with the examination. FINDINGS: Images: 34. Fluoroscopy time: 1 minute 46 seconds. Chief Technical Officer view: Nonspecific bowel gas is present through the colon and small bowel loops. Single contrast technique is utilized with contrast refluxed through the colon to the terminal ileum. No suspicious area of circumferential narrowing is evident. On overhead radiographs the appendix is identified. Diverticulum is noted at the ascending colon. Postevacuation films appear unremarkable. IMPRESSION: 1. No suspicious changes single contrast lower GI.
--- NOTE | 2022-08-11 16:17 | P.DS ---
Providers Date of admission: 08/08/22 18:57 Expected date of discharge: 08/11/22 Attending physician: Zach Kaplan MD Consults: 08/08/22 18:57 Consult Physician Routine Consulting Provider: Andres Hope Consult Reason/Comments: gi bleed Do you want consulting provider notified?: Already Contacted Primary care physician: Chris Bella MD Hospital Course: Discharge Diagnosis: Hemorrhoidal Bleeding, external hemorrhoids Diverticulosis Paroxysmal atrial fibrillation with controlled ventricular response Hypertension, controlled Hypothyroidism Hospital Course: Patient is an 82-year-old female with a history of atrial fibrillation on xarelto, HTN, Hypothyroidism, and DVT who presented to the hospital with bright red blood per rectum. In the ER she underwent an extensive evaluation. Her initial vital signs were within normal limits. Initial laboratory analysis was unremarkable. CT abdomen and pelvis showed sigmoid diverticulitis and lumbar compression fractures of undetermined age. She was placed in observation. She had serial hemoglobins remained stable. She continued to have some bright red blood per rectum. She was seen by surgery who recommended colonoscopy on 08/11 which showed severe diverticulosis and external hemorrhoids without active bleeding. There was a colonic valve and were unable to evaluate the right side of the colon. Therefore a barium enema was ordered which showed no obstruction within the colon. Her HgB remained stable and she was determined stable for discharge home. Follow-up: She'll follow up with Dr. Norman in 1-2 days. She has elected to follow-up with Dr. Pulido and she has existing relationship with her in the outpatient setting for possible definitive treatment of hemorrhoids. She will also use 1% hydrocortisone cream and apply it to hemorrhoids twice daily for 7 days. Instructed her to maintain a high-fiber diet and use MiraLAX as needed to avoid constipation. Patient seen and examined at bedside. Tolerated the prep well. Had bleeding sometimes and not others. Daughter at bedside. We discussed the results of her colonoscopy. All questions answered. Vital signs reviewed and stable. General: nontoxic, no distress, appears at stated age Derm: warm, dry Head: atraumatic, normocephalic, symmetric Eyes: EOMI, no lid lag, anicteric sclera Mouth: no lip lesion, mucus membranes moist Cardiovascular: S1S2 irreg, no murmur, positive posterior tibial pulse bilateral, Lungs: CTA bilateral, no rhonchi, no rales , no accessory muscle use Abdominal: soft, nontender to palpation, no guarding, no appreciable organomegaly Ext: no gross muscle atrophy, no edema, no contractures Neuro: CN II-XI grossly intact, no focal neuro deficits Psych: Alert, oriented, appropriate affect A total of 25 minutes of time were spent preparing this complex discharge summary. Patient was discharged on 07/14/22. Patient Condition at Discharge: Stable Plan - Discharge Summary New Discharge Prescriptions: New Hydrocortisone Cream [Hydrocortisone 1% Cream] 1 applic TOPICAL BID 7 Days #28 gm Continue Metoprolol Tartrate [Lopressor] 25 mg PO BID Methenamine Hippurate [Hiprex] 1 gm PO QID Vit C/E/Zn/Coppr/Lutein/Zeaxan [Preservision Areds 2 Softgel] 2 cap PO W/SUPPER hydroCHLOROthiazide 25 mg PO DAILY DULoxetine HCL [Cymbalta] 60 mg PO DAILY Pravastatin Sodium [Pravachol] 20 mg PO HS Losartan Potassium [Cozaar] 100 mg PO DAILY Cholecalciferol [Vitamin D3 (25 Mcg = 1000 Iu)] 50 mcg PO DAILY Multivit with Calcium,Iron,Min [Women's Multivitamin] 1 tab PO DAILY Rivaroxaban [Xarelto] 20 mg PO W/SUPPER #30 tab Levothyroxine Sodium [Synthroid] 112 mcg PO DAILY HYDROcodone/APAP 7.5-325MG [[place] 7.5-325] 1 tab PO HS Ascorbic Acid [Vitamin C] 500 mg PO DAILY busPIRone HCL 10 mg PO BID Pantoprazole [Protonix] 40 mg PO DAILY DULoxetine HCL [Cymbalta] 30 mg PO DAILY Discharge Medication List Methenamine Hippurate [Hiprex] 1 gm PO QID 09/08/18 [History] Metoprolol Tartrate [Lopressor] 25 mg PO BID 09/08/18 [History] Vit C/E/Zn/Coppr/Lutein/Zeaxan [Preservision Areds 2 Softgel] 2 cap PO W/SUPPER 02/22/19 [History] hydroCHLOROthiazide 25 mg PO DAILY 03/21/19 [History] DULoxetine HCL [Cymbalta] 60 mg PO DAILY 11/19/20 [History] Pravastatin Sodium [Pravachol] 20 mg PO HS 01/10/21 [History] Losartan Potassium [Cozaar] 100 mg PO DAILY 06/25/21 [History] Cholecalciferol [Vitamin D3 (25 Mcg = 1000 Iu)] 50 mcg PO DAILY 07/17/21 [History] Ascorbic Acid [Vitamin C] 500 mg PO DAILY 11/08/21 [History] Multivit with Calcium,Iron,Min [Women's Multivitamin] 1 tab PO DAILY 11/08/21 [History] busPIRone HCL 10 mg PO BID 05/30/22 [History] Rivaroxaban [Xarelto] 20 mg PO W/SUPPER #30 tab 06/05/22 [Rx] DULoxetine HCL [Cymbalta] 30 mg PO DAILY 08/08/22 [History] HYDROcodone/APAP 7.5-325MG [[place] 7.5-325] 1 tab PO HS 08/08/22 [History] Levothyroxine Sodium [Synthroid] 112 mcg PO DAILY 08/08/22 [History] Pantoprazole [Protonix] 40 mg PO DAILY 08/08/22 [History] Hydrocortisone Cream [Hydrocortisone 1% Cream] 1 applic TOPICAL BID 7 Days #28 gm 08/11/22 [Rx] Follow up Appointment(s)/Referral(s): Chris Bella MD [Primary Care Provider] - 1-2 days Tejal Pulido MD [STAFF PHYSICIAN] - 1 Week Activity/Diet/Wound Care/Special Instructions: Activity: as tolerated Diet: heart healthy Special Instructions: Apply hydrocortisone cream to hemorrhoids for 7 days. Avoid constipation with miralax and high fiber diet Restart xarelto on 08/15/22 Discharge Disposition: HOME SELF-CARE
== END 2022-08-11 16:46 | disposition home or self-care (01) ==
LOC: EC 13:04 → 6NMEDSUR 18:57
PROVIDERS: ADMIT Student in an Organized Health Care Education/Training Program; ATTEND Student in an Organized Health Care Education/Training Program
DX: K64.4 Residual hemorrhoidal skin tags (principal); K57.30 Diverticulosis of large intestine without perforation or abscess without bleeding; I48.0 Paroxysmal atrial fibrillation; M48.00 Spinal stenosis, site unspecified; I83.90 Asymptomatic varicose veins of unspecified lower extremity; E78.5 Hyperlipidemia, unspecified; I10 Essential (primary) hypertension; F32.A Depression, unspecified; K76.89 Other specified diseases of liver; E03.9 Hypothyroidism, unspecified; M48.56XA Collapsed vertebra, not elsewhere classified, lumbar region, initial encounter for fracture; K59.00 Constipation, unspecified; Z79.890 Hormone replacement therapy; Z79.899 Other long term (current) drug therapy; Z79.01 Long term (current) use of anticoagulants; Z88.2 Allergy status to sulfonamides; Z86.718 Personal history of other venous thrombosis and embolism; Z85.828 Personal history of other malignant neoplasm of skin; Z90.49 Acquired absence of other specified parts of digestive tract; Z96.651 Presence of right artificial knee joint; Z96.641 Presence of right artificial hip joint; Z98.42 Cataract extraction status, left eye; Z98.41 Cataract extraction status, right eye; Z80.1 Family history of malignant neoplasm of trachea, bronchus and lung; Z80.3 Family history of malignant neoplasm of breast; Z87.440 Personal history of urinary (tract) infections
CPT/HCPCS: 96376 ×3; 96361 ×5; 96374; 99285; 36415; 36410; 76937; 86900; 86901; 80053; 80048 ×2; 83605; 84484; 85025 ×2; 85027 ×2; 85610; 85730; 86850; 82272; 81001; 87086; 87077; 87186; 74280; 74177; 45378; G0378 ×4; J2704; C9113 ×4; Q9967

== ENCOUNTER 2022-08-29 08:23 | Day surgery (SDC) | payer MEDICARE ==
[~2022-08-29 08:23] MED LIST changes: +DEXAMETHASONE SOD PHOSPHATE 4 MG/ML 1 ML VIAL IV ONE; +HEPARIN SODIUM,PORCINE/PF 5,000 UNIT/0.5 ML SYRINGE SQ PRN; +HYDROmorphone 0.5 MG/0.5 ML SYRINGE IVP PRN; +LACTATED RINGERS 1,000 ML IV SCH; -LIDOCAINE 1% (10MG/ML) FOR IV START INTRADERMA PRN; -MELOXICAM 7.5 MG TAB PO PRN; +MIDAZOLAM 2 MG/2 ML VIAL IV PRN; +Pre Op ABX Message 1 EACH MISC MISCELLANE ONE; -TRANEXAMIC ACID IN NACL,ISO-OS 1,000 MG in SALINE 1 100ML.BAG IVPB PRN
--- NOTE | 2022-08-29 09:36 | P.GSHP ---
History of Present Illness H&P Date: 08/29/22 Chief Complaint: Internal and external hemorrhoids Is a tear female who's had issues with internal/external hemorrhage. Patient points of rectal pain and bleeding and itching. She presents today for hemorrhoidectomy Past Medical History Past Medical History: Atrial Fibrillation, Cancer, Deep Vein Thrombosis (DVT), Hyperlipidemia, Hypertension, Osteoarthritis (OA), Thyroid Disorder Additional Past Medical History / Comment(s): HX DVT 2008., chronic UTI's, varicose veins, constipation, hx "ischemic colitis" 2010, skin cancer, SPINAL STENOSIS, NT left LEG/FOOT- USES WALKER., collapsed tendon left foot., ?duodenal ulcer, episode of a-fib after knee replacement in -has been on xarelto since, recent adm. for rectal bldg. related to hemorrhoids History of Any Multi-Drug Resistant Organisms: None Reported Past Surgical History: Bladder Surgery, Cholecystectomy, Hysterectomy, Joint Replacement, Orthopedic Surgery Additional Past Surgical History / Comment(s): Parathyroidectomy, Bladder suspension, smita and screws right femur. Cortisone injection, pain clinic procedures. rt hip replacement, rt knee replacement 06/2021, lakisha cataracts., left knee replaced 2021, colonoscopy recently Past Anesthesia/Blood Transfusion Reactions: No Reported Reaction Smoking Status: Never smoker - Past Family History Father Family Medical History: Cancer Additional Family Medical History / Comment(s): LUNG CANCER Mother Family Medical History: Cancer Additional Family Medical History / Comment(s): Breast Cancer. Medications and Allergies Home Medications Medication Instructions Recorded Confirmed Type Methenamine Hippurate [Hiprex] 1 gm PO QID 09/08/18 08/29/22 History Metoprolol Tartrate [Lopressor] 50 mg PO QAM 09/08/18 08/29/22 History Vit C/E/Zn/Coppr/Lutein/Zeaxan 2 cap PO W/SUPPER 02/22/19 08/29/22 History [Preservision Areds 2 Softgel] hydroCHLOROthiazide 25 mg PO DAILY 03/21/19 08/29/22 History DULoxetine HCL [Cymbalta] 60 mg PO DAILY 11/19/20 08/29/22 History Pravastatin Sodium [Pravachol] 20 mg PO HS 01/10/21 08/29/22 History Losartan Potassium [Cozaar] 100 mg PO DAILY 06/25/21 08/29/22 History Cholecalciferol [Vitamin D3 (25 50 mcg PO DAILY 07/17/21 08/29/22 History Mcg = 1000 Iu)] Ascorbic Acid [Vitamin C] 500 mg PO DAILY 11/08/21 08/29/22 History Multivit with Calcium,Iron,Min 1 tab PO DAILY 11/08/21 08/29/22 History [Women's Multivitamin] busPIRone HCL 10 mg PO BID 05/30/22 08/29/22 History Rivaroxaban [Xarelto] 20 mg PO W/SUPPER #30 tab 06/05/22 08/29/22 Rx DULoxetine HCL [Cymbalta] 30 mg PO DAILY 08/08/22 08/29/22 History Levothyroxine Sodium [Synthroid] 112 mcg PO DAILY 08/08/22 08/29/22 History Pantoprazole [Protonix] 40 mg PO DAILY 08/08/22 08/29/22 History Metoprolol Tartrate [Lopressor] 25 mg PO HS 08/27/22 08/29/22 History Trimethoprim [Trimpex] 100 mg PO AC-SUPPER 08/27/22 08/29/22 History Allergies Allergy/AdvReac Type Severity Reaction Status Date / Time Sulfa (Sulfonamide Allergy Rash/Hives Verified 08/29/22 08:56 Antibiotics) Surgical - Exam - General well developed, well nourished, no distress - Eyes PERRL - ENT normal pinna - Neck no masses - Respiratory normal expansion - Cardiovascular Rhythm: regular - Abdomen Abdomen: soft, non tender Assessment and Plan Assessment: Internal and external hemorrhoids. We'll perform hemorrhoidectomy.
[2022-08-29 09:49] VITALS: RESP 16; TEMP 97.7
[2022-08-29] MEDS ORDERED: fentaNYL (PF) 50 MCG/ML 2 ML AMP ONE (09:56)
[2022-08-29] MEDS ORDERED: SUCCINYLCHOLINE CHLORIDE 200 MG/10 ML VIAL IV ONE (09:56)
[2022-08-29] MEDS ORDERED: PROPOFOL 10 MG/ML 20 ML VIAL IV ONE (09:56)
[2022-08-29] MEDS ORDERED: LIDOCAINE 2% INJ 20 MG/ML (2 ML VIAL) ONE (09:56)
[2022-08-29] MEDS ORDERED: BUPIVACAIN-EPI 0.25%-1:200,000 30 ML VIAL SQ ONE ×3 (09:58→10:28)
[2022-08-29] MEDS ORDERED: NA PHOS,M-B/NA PHOS,DI-BA 133 ML ENEMA RECTAL ONE (10:00)
[2022-08-29] MEDS ORDERED: GELATIN SPONGE,ABSORB (LARGE) 1 EACH SPONGE TOPICAL ONE (10:27)
--- NOTE | 2022-08-29 10:41 | P.OP ---
Date of Procedure: 08/29/22 Preoperative Diagnosis: Internal and external hemorrhoids Postoperative Diagnosis: Internal and external hemorrhoids Procedure(s) Performed: Internal and external hemorrhoidectomy Anesthesia: KHALIF Surgeon: Andres Hope Estimated Blood Loss (ml): 5 Pathology: other (Internal and external hemorrhoids) Condition: stable Disposition: PACU Description of Procedure: The patient's placed on the operative table in supine position. She received general anesthesia. She was then placed in the prone jackknife position. Her anus was prepped and draped usual fashion. The patient had large internal and external hemorrhoids. The anal retractors placed anus. And then the left late ral hemorrhoidal column was grasped. Allis clamps and then using the Harmonic scissors the rectus performed. Next the right anterior and right posterior hemorrhoidal columns were dissected in identical fashion. The hemorrhoids were sent to pathology. The instrument for hemostasis. Several small bleeding points were coagulated with electrocautery. The anus was then packed with Gelfoam. Patient was sent to recovery in stable condition.
[2022-08-29 12:13] VITALS: BP 122/68; PULSE 62
== END 2022-08-29 12:45 | disposition home or self-care (01) ==
LOC: OR 08:23
PROVIDERS: ATTEND Surgery
DX: K64.4 Residual hemorrhoidal skin tags (principal); K64.8 Other hemorrhoids; I48.91 Unspecified atrial fibrillation; I10 Essential (primary) hypertension; E78.5 Hyperlipidemia, unspecified; Z90.710 Acquired absence of both cervix and uterus; Z90.89 Acquired absence of other organs; Z96.641 Presence of right artificial hip joint; Z80.1 Family history of malignant neoplasm of trachea, bronchus and lung; Z80.3 Family history of malignant neoplasm of breast; Z79.899 Other long term (current) drug therapy
CPT/HCPCS: 88304; 46260; J0330; J1100; J2405; J3010; J2704; J1644; J2001

== ENCOUNTER 2022-09-08 03:51 | Inpatient (IN) | payer MEDICARE ==
[2022-09-08 04:26] LABS: Basophils # (A) 0.1 k/uL (0-0.2); Basophils % (A) 1 %; Eosinophils # (A) 0.3 k/uL (0-0.7); Eosinophils % (A) 5 %; HCT 36.8 % (34.0-46.0); HGB 12.2 gm/dL (11.4-16.0); Lymphocytes # (A) 1.4 k/uL (1.0-4.8); Lymphocytes % (A) 21 %; MCH 29.3 pg (25.0-35.0); MCHC 33.2 g/dL (31.0-37.0); MCV 88.3 fL (80.0-100.0); Mean Platelet Volume 7.9; Monocytes # (A) 0.6 k/uL (0-1.0); Monocytes % (A) 10 %; Neutrophils % (A) 60 %; Platelet Count 285 k/uL (150-450); RBC 4.17 m/uL (3.80-5.40); RDW 14.6 % (11.5-15.5); WBC 6.7 k/uL (3.8-10.6)
[2022-09-08 04:36] LABS: INR 1.2 (<1.2); Partial Thromboplastin Time 31.3 sec (22.0-30.0); Prothrombin Time 12.6 sec (9.0-12.0)
[2022-09-08 04:38] LABS: Albumin 3.7 g/dL (3.5-5.0); Calcium 9.4 mg/dL (8.4-10.2); Potassium 3.8 mmol/L (3.5-5.1); Total Bilirubin 0.4 mg/dL (0.2-1.3); Total Protein 6.5 g/dL (6.3-8.2)
[2022-09-08] MEDS ORDERED: NALOXONE 0.4 MG/ML 1 ML VIAL IV PRN (05:13)
--- NOTE | 2022-09-08 05:13 | ED ---
GI Bleed HPI - General Chief complaint: GI Bleed Stated complaint: Rectal Bleeding Time Seen by Provider: 09/08/22 04:00 Source: patient, EMS Mode of arrival: EMS Limitations: no limitations - History of Present Illness Initial comments: 82-year-old female with past medical history of A. fib on xarelto, DVT, hypertension who presents to the emergency department with rectal bleeding. She is status post internal and external thyroidectomy by Dr. Hope on the . States that she has had some light bleeding. Will have some increased bleeding when she has a bowel movement. Has been taking her stool softeners as directed. Denies constipation. Denies rectal pain or abdominal pain. She restarted her xarelto 2 days after surgery as she was told this was okay. Last night the patient woke up from sleep and felt that she was sitting in a pool of blood. She attempted to get to the bathroom however did have some stool incontinence. Patient noted significant, dark rectal bleeding. No fevers. Denies chest pain, shortness of breath, lightheadedness. No other alleviating, the dictating or modifying factors - Related Data Home Medications Medication Instructions Recorded Confirmed Methenamine Hippurate [Hiprex] 1 gm PO QID 09/08/18 09/08/22 Metoprolol Tartrate [Lopressor] 50 mg PO DAILY 09/08/18 09/08/22 Vit C/E/Zn/Coppr/Lutein/Zeaxan 2 cap PO W/SUPPER 02/22/19 09/08/22 [Preservision Areds 2 Softgel] hydroCHLOROthiazide 25 mg PO DAILY 03/21/19 09/08/22 DULoxetine HCL [Cymbalta] 60 mg PO DAILY 11/19/20 09/08/22 Pravastatin Sodium [Pravachol] 20 mg PO HS 01/10/21 09/08/22 Losartan Potassium [Cozaar] 100 mg PO DAILY 06/25/21 09/08/22 Cholecalciferol [Vitamin D3 (25 50 mcg PO DAILY 07/17/21 09/08/22 Mcg = 1000 Iu)] Ascorbic Acid [Vitamin C] 500 mg PO DAILY 11/08/21 09/08/22 Multivit with Calcium,Iron,Min 1 tab PO DAILY 11/08/21 09/08/22 [Women's Multivitamin] busPIRone HCL 10 mg PO BID 05/30/22 09/08/22 DULoxetine HCL [Cymbalta] 30 mg PO DAILY 08/08/22 09/08/22 Levothyroxine Sodium [Synthroid] 112 mcg PO DAILY 08/08/22 09/08/22 Pantoprazole [Protonix] 40 mg PO DAILY 08/08/22 09/08/22 Metoprolol Tartrate [Lopressor] 25 mg PO HS 08/27/22 09/08/22 Trimethoprim [Trimpex] 100 mg PO W/SUPPER 08/27/22 09/08/22 Previous Rx's Medication Instructions Recorded Acetaminophen Tab [Tylenol] 650 mg PO Q6H #30 tab 08/29/22 Docusate [Colace] 100 mg PO BID #20 capsule 08/29/22 oxyCODONE HCL [OxyIR] 5 mg PO Q6H PRN 3 Days #10 tab 08/29/22 Allergies Allergy/AdvReac Type Severity Reaction Status Date / Time Sulfa (Sulfonamide Allergy Rash/Hives Verified 09/08/22 07:33 Antibiotics) Review of Systems ROS Statement: Those systems with pertinent positive or pertinent negative responses have been documented in the HPI. ROS Other: All systems not noted in ROS Statement are negative. Past Medical History Past Medical History: Atrial Fibrillation, Cancer, Deep Vein Thrombosis (DVT), Hyperlipidemia, Hypertension, Osteoarthritis (OA), Thyroid Disorder Additional Past Medical History / Comment(s): HX DVT 2008., chronic UTI's, varicose veins, constipation, hx "ischemic colitis" 2010, skin cancer, SPINAL STENOSIS, NT left LEG/FOOT- USES WALKER., collapsed tendon left foot., ?duodenal ulcer, episode of a-fib after knee replacement in -has been on xarelto since, recent adm. for rectal bldg. related to hemorrhoids History of Any Multi-Drug Resistant Organisms: None Reported Past Surgical History: Bladder Surgery, Cholecystectomy, Hysterectomy, Joint Replacement, Orthopedic Surgery Additional Past Surgical History / Comment(s): Parathyroidectomy, Bladder yeny pension, smita and screws right femur. Cortisone injection, pain clinic procedures. rt hip replacement, rt knee replacement 06/2021, lakisha cataracts., left knee replaced 2021, colonoscopy recently Past Anesthesia/Blood Transfusion Reactions: No Reported Reaction Smoking Status: Never smoker - Past Family History Father Family Medical History: Cancer Additional Family Medical History / Comment(s): LUNG CANCER Mother Family Medical History: Cancer Additional Family Medical History / Comment(s): Breast Cancer. General Exam Limitations: no limitations General appearance: alert, in no apparent distress, anxious Head exam: Present: atraumatic, normocephalic, normal inspection Eye exam: Present: normal appearance, PERRL, EOMI. Absent: scleral icterus, conjunctival injection, periorbital swelling ENT exam: Present: normal exam, mucous membranes moist Neck exam: Present: normal inspection. Absent: tenderness, meningismus, lymphadenopathy Respiratory exam: Present: normal lung sounds bilaterally. Absent: respiratory distress, wheezes, rales, rhonchi, stridor Cardiovascular Exam: Present: regular rate, normal rhythm, normal heart sounds. Absent: systolic murmur, diastolic murmur, rubs, gallop, clicks GI/Abdominal exam: Present: soft, normal bowel sounds. Absent: distended, tenderness, guarding, rebound, rigid Rectal exam: Present: bloody stool, hemorrhoids, other (no identifiable area that the bleeding is coming from - slow consistent trickle of blood coming from rectal opening. post surgical changes healing) Extremities exam: Present: normal inspection, full ROM, normal capillary refill. Absent: tenderness, pedal edema, joint swelling, calf tenderness Back exam: Present: normal inspection Neurological exam: Present: alert, oriented X3, CN II-XII intact Psychiatric exam: Present: normal affect, normal mood Skin exam: Present: warm, dry, intact, normal color. Absent: rash Course Vital Signs 09/08/22 09/08/22 09/08/22 03:55 07:05 07:15 Temperature 97.3 F L 97.5 F L Pulse Rate 67 66 63 Respiratory 20 22 18 Rate Blood Pressure 156/79 134/85 134/85 O2 Sat by Pulse 99 100 99 Oximetry 09/08/22 09/08/22 09/08/22 08:49 12:11 15:02 Temperature Pulse Rate 67 56 L 62 Respiratory 118 H 18 18 Rate Blood Pressure 130/82 114/83 123/58 O2 Sat by Pulse 97 100 95 Oximetry 09/08/22 09/08/22 17:51 19:45 Temperature Pulse Rate 72 65 Respiratory 18 18 Rate Blood Pressure 123/58 121/47 O2 Sat by Pulse 98 100 Oximetry Medical Decision Making - Medical Decision Making Upon arrival patient was placed into room 4. A thorough history and physical exam was performed. Patient does have a significant amount of rectal bleeding o n exam which is active. I do see postsurgical changes however I am unable to identify source of bleeding. Patient is hemodynamically stable. Laboratory studies are obtained which demonstrated a hemoglobin of 12.2. I did call and speak with Dr. Solitario. Recommends admission. Medicine will be consultation. I will hold the patient's Xarelto. She remained in stable condition awaiting a bed - Lab Data Result diagrams: 09/09/22 08:10 09/09/22 08:10 Lab Results 09/08/22 09/08/22 09/08/22 Range/Units 04:12 04:12 04:12 WBC 6.7 (3.8-10.6) k/uL RBC 4.17 (3.80-5.40) m/uL Hgb 12.2 (11.4-16.0) gm/dL Hct 36.8 (34.0-46.0) % MCV 88.3 (80.0-100.0) fL MCH 29.3 (25.0-35.0) pg MCHC 33.2 (31.0-37.0) g/dL RDW 14.6 (11.5-15.5) % Plt Count 285 (150-450) k/uL MPV 7.9 Neutrophils % 60 % Lymphocytes % 21 % Monocytes % 10 % Eosinophils % 5 % Basophils % 1 % Neutrophils # 4.0 (1.3-7.7) k/uL Lymphocytes # 1.4 (1.0-4.8) k/uL Monocytes # 0.6 (0-1.0) k/uL Eosinophils # 0.3 (0-0.7) k/uL Basophils # 0.1 (0-0.2) k/uL PT 12.6 H (9.0-12.0) sec INR 1.2 H (<1.2) APTT 31.3 H (22.0-30.0) sec Sodium 138 (137-145) mmol/L Potassium 3.8 (3.5-5.1) mmol/L Chloride 108 H (98-107) mmol/L Carbon Dioxide 23 (22-30) mmol/L Anion Gap 7 mmol/L BUN 31 H (7-17) mg/dL Creatinine 0.99 (0.52-1.04) mg/dL Est GFR (CKD-EPI)AfAm 62 (>60 ml/min/1.73 sqM) Est GFR (CKD-EPI)NonAf 53 (>60 ml/min/1.73 sqM) Glucose 124 H (74-99) mg/dL POC Glucose (mg/dL) (70-110) mg/dL POC Glu Music Engineer ID Calcium 9.4 (8.4-10.2) mg/dL Total Bilirubin 0.4 (0.2-1.3) mg/dL AST 19 (14-36) U/L ALT 14 (4-34) U/L Alkaline Phosphatase 87 (38-126) U/L Total Protein 6.5 (6.3-8.2) g/dL Albumin 3.7 (3.5-5.0) g/dL Lipase 127 (23-300) U/L 09/08/ Range/Units 08:10 WBC (3.8-10.6) k/uL RBC (3.80-5.40) m/uL Hgb (11.4-16.0) gm/dL Hct (34.0-46.0) % MCV (80.0-100.0) fL MCH (25.0-35.0) pg MCHC (31.0-37.0) g/dL RDW (11.5-15.5) % Plt Count (150-450) k/uL MPV Neutrophils % % Lymphocytes % % Monocytes % % Eosinophils % % Basophils % % Neutrophils # (1.3-7.7) k/uL Lymphocytes # (1.0-4.8) k/uL Monocytes # (0-1.0) k/uL Eosinophils # (0-0.7) k/uL Basophils # (0-0.2) k/uL PT (9.0-12.0) sec INR (<1.2) APTT (22.0-30.0) sec Sodium (137-145) mmol/L Potassium (3.5-5.1) mmol/L Chloride (98-107) mmol/L Carbon Dioxide (22-30) mmol/L Anion Gap mmol/L BUN (7-17) mg/dL Creatinine (0.52-1.04) mg/dL Est GFR (CKD-EPI)AfAm (>60 ml/min/1.73 sqM) Est GFR (CKD-EPI)NonAf (>60 ml/min/1.73 sqM) Glucose (74-99) mg/dL POC Glucose (mg/dL) 115 H (70-110) mg/dL POC Glu Music Engineer ID Mariposa Lomeli Calcium (8.4-10.2) mg/dL Total Bilirubin (0.2-1.3) mg/dL AST (14-36) U/L ALT (4-34) U/L Alkaline Phosphatase (38-126) U/L Total Protein (6.3-8.2) g/dL Albumin (3.5-5.0) g/dL Lipase (23-300) U/L Disposition Clinical Impression: GI bleed, History of hemorrhoidectomy Disposition: ADMITTED IP TO THIS [facility] Condition: Stable Is patient prescribed a controlled substance at d/c from ED?: No Time of Disposition: 05:13 Decision to Admit Reason: Admit from EC Decision Date: 09/08/22 Decision Time: 05:13
[2022-09-08 08:12] LABS: Glucose,Whole Blood 115 mg/dL (70-110)
[2022-09-08] MEDS ORDERED: DULoxetine HCL 60 MG CAPSULE.DR PO SCH (09:00)
[2022-09-08 09:34] LABS: HCT 31.7 % (34.0-46.0); HGB 10.7 gm/dL (11.4-16.0); MCH 29.6 pg (25.0-35.0); MCHC 33.7 g/dL (31.0-37.0); MCV 87.9 fL (80.0-100.0); Mean Platelet Volume 7.8; Platelet Count 259 k/uL (150-450); RBC 3.61 m/uL (3.80-5.40); RDW 14.6 % (11.5-15.5); WBC 7.5 k/uL (3.8-10.6)
[2022-09-08] MEDS: busPIRone HCl 10 MG TAB PO SCH ×2 (10:31→21:32)
[2022-09-08] MEDS: DULoxetine HCL 30 MG CAPSULE.DR PO SCH (10:31)
[2022-09-08] MEDS: PANTOPRAZOLE 40 MG/10 ML VIAL IVP SCH ×2 (10:31→21:33)
[2022-09-08] MEDS: LEVOTHYROXINE 112 MCG TAB PO SCH (10:31)
[2022-09-08] MEDS: LOSARTAN 50 MG TAB PO SCH (10:32)
[2022-09-08] MEDS: ASCORBIC ACID 500 MG TAB PO SCH (10:32)
[2022-09-08] MEDS: SODIUM CHLORIDE 0.9% 1,000 ML IV SCH ×2 (10:32→17:18)
[2022-09-08] MEDS: METOPROLOL TARTRATE 50 MG TAB PO SCH (10:32)
[2022-09-08] MEDS: CHOLECALCIFEROL 25 MCG (1000 IU) TABLET PO SCH (10:32)
--- NOTE | 2022-09-08 10:39 | P.CONS ---
History of Present Illness - Reason for Consult Consult date: 09/08/22 Medical management Requesting physician: Andres Hope - Chief Complaint Rectal bleeding - History of Present Illness History of Presenting Illness: Patient is a very pleasant 82-year-old female with a past medical history of at rial fibrillation and DVT on anticoagulation with Xarelto, hypertension, hyperlipidemia, hypothyroidism, and GERD. She presented to the emergency department with the chief complaint of rectal bleeding status post internal and external hemorrhoidectomy completed by Dr. Hope on 08/29/22. Patient reported that she resumed her oral anticoagulant, Xarelto on 08/31/22 and reported she first noticed bleeding from her rectum overnight which was initially described as being light pink but after having a bowel movement reported to develop rectal pain accompanied by dark colored blood with clots. She underwent full evaluation in the emergency department and was found to have stable hemoglobin at 12.2 and slightly elevated BUN of 31. Patient was noted to have active seepage of dark colored blood per rectum and was admitted under Gen. surgery team and we have been consulted for medical management throughout patient's hospitalization. Upon evaluation at bedside, patient was alert and oriented to person, place, time, and situation. She reported mild pain in her rectum and upon external physical exam, patient had noted external hemorrhoid present and did have active seepage of dark colored blood on gauze. Internal rectal exam deferred to general surgery team secondary to active rectal bleeding. Patient denied having any abdominal pain or discomfort, she denied having any nausea, vomiting, chest pain, palpitations, shortness of breath, dizziness, or lightheadedness. Patient reports last taking her Xarelto yesterday evening. Review of systems: Pertinent positives and negatives as discussed in HPI, a complete review of systems was performed and all other systems are negative. Physical exam: Vital signs reviewed and stable. General: Nontoxic, no distress and appears stated age. Derm: Skin warm and dry, normal coloration for ethnicity. Head: Atraumatic, normocephalic and symmetric. Eyes: EOMs intact, no lid lag, and anicteric sclera Mouth: no lip lesions, mucus membranes moist Cardiovascular: regular rate and rhythm with normal S1S2, no murmur, positive posterior tibial pulses bilaterally, and cap refill < 2 seconds. Lungs: Respirations even, regular, and unlabored on room air. Lungs CTA bilaterally, no rhonchi, no rales, no wheezing, and no accessory muscle usage. GI/: soft, nontender to palpation, no guarding, no appreciable organomegaly. Upon external physical exam, patient had noted external hemorrhoid present and did have active seepage of dark colored blood on gauze from rectum. Internal rectal exam deferred to general surgery team secondary to active rectal bleeding. Ext: ROM intact. No gross muscle atrophy, no edema, no contractures Neuro: Speech clear, face symmetrical and CN II-XII grossly intact with no noted focal neuro deficits Psych: Alert and oriented to person, place, time, and situation. Appropriate and pleasant affect. Assessment and Plan of Care: Lower GI bleed Rectal bleeding after resuming oral anticoagulant status post internal and external hemorrhoidectomy on 08/29/22 -Patient admitted under Gen. surgery team -Monitor H&H every 6 hours x 4 and transfuse as needed for hemoglobin less than 7. -Protonix 40 mg IVP twice daily. -Nothing by mouth until cleared by general surgery team. -Continued gentle hydration with 0.9% normal. -Hold Xarelto and SCDs for DVT prophylaxis. Paroxysmal atrial fibrillation History of DVT of left lower extremity -Hold anticoagulation with Xarelto secondary to acute lower GI bleed. Hypertension -Monitor vital signs and continue daily medication regimen with losartan and metoprolol. We will hold hydrochlorothiazide at this time secondary to need for gentle IV fluid hydration due to current lower GI bleeding. Hypothyroidism -Continue daily medication regimen with levothyroxine. Hyperlipidemia -Continue daily medication regimen with pravastatin. GERD -GI prophylaxis with Protonix 40 mg twice a day Thank you for allowing us to participate in the care of this pleasant patient. Do not hesitate to contact us with questions. Someone can be reached from the [facility] hospitalist group all hours of the day at [phone] or via [employer]. Eric Hand NP rendered care for this patient independently, reviewed the f indings and plan as documented in the note above. I did not physically speak with or examine the patient on this date. Past Medical History Past Medical History: Atrial Fibrillation, Cancer, Deep Vein Thrombosis (DVT), Hyperlipidemia, Hypertension, Osteoarthritis (OA), Thyroid Disorder Additional Past Medical History / Comment(s): HX DVT 2008., chronic UTI's, varicose veins, constipation, hx "ischemic colitis" 2010, skin cancer, SPINAL STENOSIS, NT left LEG/FOOT- USES WALKER., collapsed tendon left foot., ?duodenal ulcer, episode of a-fib after knee replacement in -has been on xarelto since, recent adm. for rectal bldg. related to hemorrhoids History of Any Multi-Drug Resistant Organisms: None Reported Past Surgical History: Bladder Surgery, Cholecystectomy, Hysterectomy, Joint Replacement, Orthopedic Surgery Additional Past Surgical History / Comment(s): Parathyroidectomy, Bladder suspension, smita and screws right femur. Cortisone injection, pain clinic procedures. rt hip replacement, rt knee replacement 06/2021, lakisha cataracts., left knee replaced 2021, colonoscopy recently Past Anesthesia/Blood Transfusion Reactions: No Reported Reaction Past Psychological History: Depression Smoking Status: Never smoker Past Alcohol Use History: None Reported Past Drug Use History: None Reported - Past Family History Father Family Medical History: Cancer Additional Family Medical History / Comment(s): LUNG CANCER Mother Family Medical History: Cancer Additional Family Medical History / Comment(s): Breast Cancer. Medications and Allergies Home Medications Medication Instructions Recorded Confirmed Type Methenamine Hippurate [Hiprex] 1 gm PO QID 09/08/18 09/08/22 History Metoprolol Tartrate [Lopressor] 50 mg PO DAILY 09/08/18 09/08/22 History Vit C/E/Zn/Coppr/Lutein/Zeaxan 2 cap PO W/SUPPER 02/22/19 09/08/22 History [Preservision Areds 2 Softgel] hydroCHLOROthiazide 25 mg PO DAILY 03/21/19 09/08/22 History DULoxetine HCL [Cymbalta] 60 mg PO DAILY 11/19/20 09/08/22 History Pravastatin Sodium [Pravachol] 20 mg PO HS 01/10/21 09/08/22 History Losartan Potassium [Cozaar] 100 mg PO DAILY 06/25/21 09/08/22 History Cholecalciferol [Vitamin D3 (25 50 mcg PO DAILY 07/17/21 09/08/22 History Mcg = 1000 Iu)] Ascorbic Acid [Vitamin C] 500 mg PO DAILY 11/08/21 09/08/22 History Multivit with Calcium,Iron,Min 1 tab PO DAILY 11/08/21 09/08/22 History [Women's Multivitamin] busPIRone HCL 10 mg PO BID 05/30/22 09/08/22 History Rivaroxaban [Xarelto] 20 mg PO W/SUPPER #30 tab 06/05/22 09/08/22 Rx DULoxetine HCL [Cymbalta] 30 mg PO DAILY 08/08/22 09/08/22 History Levothyroxine Sodium [Synthroid] 112 mcg PO DAILY 08/08/22 09/08/22 History Pantoprazole [Protonix] 40 mg PO DAILY 08/08/22 09/08/22 History Metoprolol Tartrate [Lopressor] 25 mg PO HS 08/27/22 09/08/22 History Trimethoprim [Trimpex] 100 mg PO W/SUPPER 08/27/22 09/08/22 History Acetaminophen Tab [Tylenol] 650 mg PO Q6H #30 tab 08/29/22 09/08/22 Rx Docusate [Colace] 100 mg PO BID #20 capsule 08/29/22 09/08/22 Rx oxyCODONE HCL [OxyIR] 5 mg PO Q6H PRN 3 Days #10 tab 08/29/22 09/08/22 Rx Ibuprofen [Motrin] 600 mg PO Q6H PRN 09/08/22 09/08/22 History Allergies Allergy/AdvReac Type Severity Reaction Status Date / Time Sulfa (Sulfonamide Allergy Rash/Hives Verified 09/08/22 07:33 Antibiotics) Physical Exam Vitals: Vital Signs Temp Pulse Resp BP Pulse Ox 09/08/22 07:15 63 18 134/85 99 09/08/22 07:05 97.5 F L 66 22 134/85 100 09/08/22 03:55 97.3 F L 67 20 156/79 99 Intake and Output 09/07/22 09/08/22 09/08/22 22:59 06:59 14:59 Other: Weight 88.451 kg Results CBC & Chem 7: 09/08/22 16:30 09/08/22 04:12 Labs: Abnormal Lab Results - Last 24 Hours (Table) 09/08/22 09/08/22 Range/Units 04:12 04:12 PT 12.6 H (9.0-12.0) sec INR 1.2 H (<1.2) APTT 31.3 H (22.0-30.0) sec Chloride 108 H (98-107) mmol/L BUN 31 H (7-17) mg/dL Glucose 124 H (74-99) mg/dL
--- NOTE | 2022-09-08 10:46 | P.GSHP ---
History of Present Illness H&P Date: 09/08/22 CHIEF COMPLAINT: Rectal bleeding HISTORY OF PRESENT ILLNESS: This is a 82-year-old female who presents to the ER with complaint of rectal bleeding that started last night. She had recent internal and external hemorrhoidectomy with Dr. Aleida shoemaker on 08/29/2022. She is on Xarelto at home. She restarted the Xarelto 2 days after surgery. Patient initially had a light pink bleeding and is now having dark blood with clots per rectum. On exam there is blood pooling at the rectum. She also is having rectal pain. Hemoglobin on admission was 12.2 and has dropped 10.7. She denies any nausea or vomiting. Vitals have been stable. Showing diverticulosis and external hemorrhoids. Patient seen and examined with Dr. shoemaker PAST MEDICAL HISTORY: Atrial fibrillation, DVT, hypertension, osteoarthritis, hypothyroidism, hemorrhoids PAST SURGICAL HISTORY: Bladder Surgery, Cholecystectomy, Hysterectomy, Hemorrhoidectomy MEDICATIONS: See below ALLERGIES: See below SOCIAL HISTORY: No illicit drug use. REVIEW OF SYSTEMS: CONSTITUTIONAL: Denies fever or chills. HEENT: Denies blurred vision, vision changes, or eye pain. Denies hemoptysis CARDIOVASCULAR: Denies chest pain or pressure. RESPIRATORY: No shortness of breath. GASTROINTESTINAL: See HPI for pertinent findings HEMATOLOGIC: Denies bleeding disorders. GENITOURINARY: Denies any blood in urine or increased urinary frequency. SKIN: Denies pruitis. Denies rash. PHYSICAL EXAM: VITAL SIGNS: Reviewed GENERAL: Well-developed in no acute distress. HEENT: No sclera icterus. Extraocular movements grossly intact. Moist buccal mucosa. Head is atraumatic, normocephalic. No nasal drainage. ABDOMEN: Soft. Nondistended. Nontender. Rectal exam externally hemorrhoids present with active bleeding with dark blood noted from the rectum NEUROLOGIC: Alert and oriented. Cranial nerves II through XII grossly intact. LABORATORY DATA: WBC is 7.5H to be 12.2 down to 10.7 platelets 259 INR 1.2 Sodium is 138 potassium is 3.8 creatinine 0.99 liver enzymes and lipase normal IMAGING: ASSESSMENT: 1. GI bleed with blood per rectum with recent hemorrhoid surgery and on blood thinners. GI bleed due to blood thinner. 2. Anemia 3. Recent internal/external hemorrhoidectomy on 08/29/2022 4. History of A. fib and DVT lower extremity on Xarelto PLAN: -Start clear liquids -No surgical intervention planned -Continue to monitor -Hold Xarelto -Continue to monitor for signs and symptoms of bleeding -Continue to monitor hemoglobin -Continue IV fluids Physician Picture Frame Maker note has been reviewed by physician. Signing provider agrees with the documented findings, assessment, and plan of care. Past Medical History Past Medical History: Atrial Fibrillation, Cancer, Deep Vein Thrombosis (DVT), Hyperlipidemia, Hypertension, Osteoarthritis (OA), Thyroid Disorder Additional Past Medical History / Comment(s): HX DVT 2008., chronic UTI's, varicose veins, constipation, hx "ischemic colitis" 2010, skin cancer, SPINAL STENOSIS, NT left LEG/FOOT- USES WALKER., collapsed tendon left foot., ?duodenal ulcer, episode of a-fib after knee replacement in -has been on xarelto since, recent adm. for rectal bldg. related to hemorrhoids History of Any Multi-Drug Resistant Organisms: None Reported Past Surgical History: Bladder Surgery, Cholecystectomy, Hysterectomy, Joint Replacement, Orthopedic Surgery Additional Past Surgical History / Comment(s): Parathyroidectomy, Bladder suspension, smita and screws right femur. Cortisone injection, pain clinic procedures. rt hip replacement, rt knee replacement 06/2021, lakisha cataracts., left knee replaced 2021, colonoscopy recently Past Anesthesia/Blood Transfusion Reactions: No Reported Reaction Past Psychological History: Depression Smoking Status: Never smoker Past Alcohol Use History: None Reported Past Drug Use History: None Reported - Past Family History Father Family Medical History: Cancer Additional Family Medical History / Comment(s): LUNG CANCER Mother Family Medical History: Cancer Additional Family Medical History / Comment(s): Breast Cancer. Medications and Allergies Home Medications Medication Instructions Recorded Confirmed Type Methenamine Hippurate [Hiprex] 1 gm PO QID 09/08/18 09/08/22 History Metoprolol Tartrate [Lopressor] 50 mg PO DAILY 09/08/18 09/08/22 History Vit C/E/Zn/Coppr/Lutein/Zeaxan 2 cap PO W/SUPPER 02/22/19 09/08/22 History [Preservision Areds 2 Softgel] hydroCHLOROthiazide 25 mg PO DAILY 03/21/19 09/08/22 History DULoxetine HCL [Cymbalta] 60 mg PO DAILY 11/19/20 09/08/22 History Pravastatin Sodium [Pravachol] 20 mg PO HS 01/10/21 09/08/22 History Losartan Potassium [Cozaar] 100 mg PO DAILY 06/25/21 09/08/22 History Cholecalciferol [Vitamin D3 (25 50 mcg PO DAILY 07/17/21 09/08/22 History Mcg = 1000 Iu)] Ascorbic Acid [Vitamin C] 500 mg PO DAILY 11/08/21 09/08/22 History Multivit with Calcium,Iron,Min 1 tab PO DAILY 11/08/21 09/08/22 History [Women's Multivitamin] busPIRone HCL 10 mg PO BID 05/30/22 09/08/22 History Rivaroxaban [Xarelto] 20 mg PO W/SUPPER #30 tab 06/05/22 09/08/22 Rx DULoxetine HCL [Cymbalta] 30 mg PO DAILY 08/08/22 09/08/22 History Levothyroxine Sodium [Synthroid] 112 mcg PO DAILY 08/08/22 09/08/22 History Pantoprazole [Protonix] 40 mg PO DAILY 08/08/22 09/08/22 History Metoprolol Tartrate [Lopressor] 25 mg PO HS 08/27/22 09/08/22 History Trimethoprim [Trimpex] 100 mg PO W/SUPPER 08/27/22 09/08/22 History Acetaminophen Tab [Tylenol] 650 mg PO Q6H #30 tab 08/29/22 09/08/22 Rx Docusate [Colace] 100 mg PO BID #20 capsule 08/29/22 09/08/22 Rx oxyCODONE HCL [OxyIR] 5 mg PO Q6H PRN 3 Days #10 tab 08/29/22 09/08/22 Rx Ibuprofen [Motrin] 600 mg PO Q6H PRN 09/08/22 09/08/22 History Allergies Allergy/AdvReac Type Severity Reaction Status Date / Time Sulfa (Sulfonamide Allergy Rash/Hives Verified 09/08/22 07:33 Antibiotics) Surgical - Exam Vital Signs Temp Pulse Resp BP Pulse Ox 97.3 F L 67 20 156/79 99 09/08/22 03:55 09/08/22 03:55 09/08/22 03:55 09/08/22 03:55 09/08/22 03:55 Results - Labs 09/08/22 09:27 09/08/22 04:12 Abnormal Lab Results - Last 24 Hours (Table) 09/08/22 09/08/22 09/08/22 Range/Units 04:12 04:12 08:10 RBC (3.80-5.40) m/uL Hgb (11.4-16.0) gm/dL Hct (34.0-46.0) % PT 12.6 H (9.0-12.0) sec INR 1.2 H (<1.2) APTT 31.3 H (22.0-30.0) sec Chloride 108 H (98-107) mmol/L BUN 31 H (7-17) mg/dL Glucose 124 H (74-99) mg/dL POC Glucose (mg/dL) 115 H (70-110) mg/dL 09/08/22 Range/Units 09:27 RBC 3.61 L (3.80-5.40) m/uL Hgb 10.7 L (11.4-16.0) gm/dL Hct 31.7 L (34.0-46.0) % PT (9.0-12.0) sec INR (<1.2) APTT (22.0-30.0) sec Chloride (98-107) mmol/L BUN (7-17) mg/dL Glucose (74-99) mg/dL POC Glucose (mg/dL) (70-110) mg/dL Diabetes panel 09/08/22 Range/Units 04:12 Sodium 138 (137-145) mmol/L Potassium 3.8 (3.5-5.1) mmol/L Chloride 108 H (98-107) mmol/L Carbon Dioxide 23 (22-30) mmol/L BUN 31 H (7-17) mg/dL Creatinine 0.99 (0.52-1.04) mg/dL Glucose 124 H (74-99) mg/dL Calcium 9.4 (8.4-10.2) mg/dL AST 19 (14-36) U/L ALT 14 (4-34) U/L Alkaline Phosphatase 87 (38-126) U/L Total Protein 6.5 (6.3-8.2) g/dL Albumin 3.7 (3.5-5.0) g/dL Calcium panel 09/08/22 Range/Units 04:12 Calcium 9.4 (8.4-10.2) mg/dL Albumin 3.7 (3.5-5.0) g/dL Pituitary panel 09/08/22 Range/Units 04:12 Sodium 138 (137-145) mmol/L Potassium 3.8 (3.5-5.1) mmol/L Chloride 108 H (98-107) mmol/L Carbon Dioxide 23 (22-30) mmol/L BUN 31 H (7-17) mg/dL Creatinine 0.99 (0.52-1.04) mg/dL Glucose 124 H (74-99) mg/dL Calcium 9.4 (8.4-10.2) mg/dL Adrenal panel 09/08/22 Range/Units 04:12 Sodium 138 (137-145) mmol/L Potassium 3.8 (3.5-5.1) mmol/L Chloride 108 H (98-107) mmol/L Carbon Dioxide 23 (22-30) mmol/L BUN 31 H (7-17) mg/dL Creatinine 0.99 (0.52-1.04) mg/dL Glucose 124 H (74-99) mg/dL Calcium 9.4 (8.4-10.2) mg/dL Total Bilirubin 0.4 (0.2-1.3) mg/dL AST 19 (14-36) U/L ALT 14 (4-34) U/L Alkaline Phosphatase 87 (38-126) U/L Total Protein 6.5 (6.3-8.2) g/dL Albumin 3.7 (3.5-5.0) g/dL
[2022-09-08 16:40] LABS: HCT 34.2 % (34.0-46.0); HGB 11.2 gm/dL (11.4-16.0); Hypochromasia Slight; MCH 29.4 pg (25.0-35.0); MCHC 32.6 g/dL (31.0-37.0); MCV 90.1 fL (80.0-100.0); Mean Platelet Volume 7.6; Platelet Count 261 k/uL (150-450); RDW 14.4 % (11.5-15.5); WBC 6.4 k/uL (3.8-10.6)
[2022-09-08] MEDS ORDERED: PRAVASTATIN SODIUM 20 MG TAB PO SCH (21:00)
[2022-09-08] MEDS ORDERED: METOPROLOL TARTRATE 25 MG TAB PO SCH (21:00)
[2022-09-08] MEDS: NON FORMULARY DRUG (Methenamine Hippurate [Hiprex] 1 GM Tablet) PO SCH (21:27)
[2022-09-08 22:12] LABS: HCT 35.7 % (34.0-46.0); HGB 11.3 gm/dL (11.4-16.0); Hypochromasia Slight; MCH 28.8 pg (25.0-35.0); MCHC 31.8 g/dL (31.0-37.0); MCV 90.5 fL (80.0-100.0); Mean Platelet Volume 7.9; Platelet Count 253 k/uL (150-450); RBC 3.94 m/uL (3.80-5.40); RDW 14.6 % (11.5-15.5); WBC 6.3 k/uL (3.8-10.6)
[2022-09-09] MEDS: NON FORMULARY DRUG (Methenamine Hippurate [Hiprex] 1 GM Tablet) PO SCH ×2 (01:53→11:06)
[2022-09-09] MEDS: SODIUM CHLORIDE 0.9% 1,000 ML IV SCH ×2 (03:00→11:06)
[2022-09-09] MEDS: LEVOTHYROXINE 112 MCG TAB PO SCH (06:22)
[2022-09-09 08:48] LABS: Basophils % (A) 1 %; Eosinophils # (A) 0.2 k/uL (0-0.7); Eosinophils % (A) 5 %; HCT 34.4 % (34.0-46.0); Hypochromasia Slight; Lymphocytes # (A) 1.3 k/uL (1.0-4.8); Lymphocytes % (A) 27 %; MCV 90.7 fL (80.0-100.0); Mean Platelet Volume 7.8; Monocytes # (A) 0.5 k/uL (0-1.0); Monocytes % (A) 11 %; Neutrophils # (A) 2.5 k/uL (1.3-7.7); Neutrophils % (A) 54 %; Platelet Count 266 k/uL (150-450); RDW 14.9 % (11.5-15.5); WBC 4.7 k/uL (3.8-10.6)
[2022-09-09] MEDS: ASCORBIC ACID 500 MG TAB PO SCH (08:51)
[2022-09-09] MEDS: LOSARTAN 50 MG TAB PO SCH (08:51)
[2022-09-09] MEDS: DULoxetine HCL 30 MG CAPSULE.DR PO SCH (08:51)
[2022-09-09] MEDS: CHOLECALCIFEROL 25 MCG (1000 IU) TABLET PO SCH (08:51)
[2022-09-09] MEDS: busPIRone HCl 10 MG TAB PO SCH (08:51)
[2022-09-09] MEDS: PANTOPRAZOLE 40 MG/10 ML VIAL IVP SCH (08:51)
[2022-09-09] MEDS: METOPROLOL TARTRATE 50 MG TAB PO SCH (08:51)
[2022-09-09 09:05] LABS: Calcium 8.3 mg/dL (8.4-10.2); Potassium 3.6 mmol/L (3.5-5.1)
[2022-09-09 10:36] VITALS: BMI 36.8
--- NOTE | 2022-09-09 11:48 | P.DS ---
Providers Date of admission: 09/08/22 09:23 Expected date of discharge: 09/09/22 Attending physician: Andres Shoemaker Consults: 09/08/22 06:36 Consult Physician Urgent Consulting Provider: Ronit Aragon Consult Reason/Comments: medical mangement, gi bleed Do you want consulting provider notified?: Yes Primary care physician: Chris Bella MD Hospital Course: Discharge diagnosis 1. GI bleed with blood per rectum with recent hemorrhoid surgery and on blood thinners. GI bleed due to blood thinner. 2. Acute blood loss Anemia due to GI bleed from xarelto 3. Recent internal/external hemorrhoidectomy on 08/29/2022 4. History of A. fib and DVT lower extremity on Xarelto Hospital course This is a 82-year-old female who presents to the ER with complaint of rectal bleeding that started last night. She had recent internal and external hemorrhoidectomy with Dr. shoemaker on 08/29/2022. She takes Xarelto at home. Patient has had improvement in her rectal bleeding. She had a brown stool this morning with minimal bleeding. Hemoglobin has remained stable at 11.0. She is tolerating diet. Patient does report minimal rectal pain with bowel movements. Patient is stable for discharge. Recommend Benefiber or Metamucil daily at home. Recommend discontinue taking Xarelto and Motrin for at least 2 weeks due to increased bleeding risk with these medications. Patient Mycostatin for discharge. Please refer to chart for any further details. Physician Garbage Worker note has been reviewed by physician. Signing provider agrees with the documented findings, assessment, and plan of care. Patient Condition at Discharge: Stable Plan - Discharge Summary New Discharge Prescriptions: Continue Metoprolol Tartrate [Lopressor] 50 mg PO DAILY Methenamine Hippurate [Hiprex] 1 gm PO QID Vit C/E/Zn/Coppr/Lutein/Zeaxan [Preservision Areds 2 Softgel] 2 cap PO W/SUPPER DULoxetine HCL [Cymbalta] 60 mg PO DAILY Pravastatin Sodium [Pravachol] 20 mg PO HS Losartan Potassium [Cozaar] 100 mg PO DAILY Cholecalciferol [Vitamin D3 (25 Mcg = 1000 Iu)] 50 mcg PO DAILY Multivit with Calcium,Iron,Min [Women's Multivitamin] 1 tab PO DAILY Levothyroxine Sodium [Synthroid] 112 mcg PO DAILY Metoprolol Tartrate [Lopressor] 25 mg PO HS oxyCODONE HCL [OxyIR] 5 mg PO Q6H PRN 3 Days #10 tab PRN Reason: Pain Acetaminophen Tab [Tylenol] 650 mg PO Q6H #30 tab Ascorbic Acid [Vitamin C] 500 mg PO DAILY busPIRone HCL 10 mg PO BID Pantoprazole [Protonix] 40 mg PO DAILY DULoxetine HCL [Cymbalta] 30 mg PO DAILY Docusate [Colace] 100 mg PO BID #20 capsule Discontinued Rivaroxaban [Xarelto] 20 mg PO W/SUPPER #30 tab Ibuprofen [Motrin] 600 mg PO Q6H PRN PRN Reason: Pain No Action hydroCHLOROthiazide 25 mg PO DAILY Trimethoprim [Trimpex] 100 mg PO W/SUPPER Discharge Medication List Methenamine Hippurate [Hiprex] 1 gm PO QID 09/08/18 [History] Metoprolol Tartrate [Lopressor] 50 mg PO DAILY 09/08/18 [History] Vit C/E/Zn/Coppr/Lutein/Zeaxan [Preservision Areds 2 Softgel] 2 cap PO W/SUPPER 02/22/19 [History] hydroCHLOROthiazide 25 mg PO DAILY 03/21/19 [History] DULoxetine HCL [Cymbalta] 60 mg PO DAILY 11/19/20 [History] Pravastatin Sodium [Pravachol] 20 mg PO HS 01/10/21 [History] Losartan Potassium [Cozaar] 100 mg PO DAILY 06/25/21 [History] Cholecalciferol [Vitamin D3 (25 Mcg = 1000 Iu)] 50 mcg PO DAILY 07/17/21 [History] Ascorbic Acid [Vitamin C] 500 mg PO DAILY 11/08/21 [History] Multivit with Calcium,Iron,Min [Women's Multivitamin] 1 tab PO DAILY 11/08/21 [History] busPIRone HCL 10 mg PO BID 05/30/22 [History] DULoxetine HCL [Cymbalta] 30 mg PO DAILY 08/08/22 [History] Levothyroxine Sodium [Synthroid] 112 mcg PO DAILY 08/08/22 [History] Pantoprazole [Protonix] 40 mg PO DAILY 08/08/22 [History] Metoprolol Tartrate [Lopressor] 25 mg PO HS 08/27/22 [History] Trimethoprim [Trimpex] 100 mg PO W/SUPPER 08/27/22 [History] Acetaminophen Tab [Tylenol] 650 mg PO Q6H #30 tab 08/29/22 [Rx] Docusate [Colace] 100 mg PO BID #20 capsule 08/29/22 [Rx] oxyCODONE HCL [OxyIR] 5 mg PO Q6H PRN 3 Days #10 tab 08/29/22 [Rx] Follow up Appointment(s)/Referral(s): Chris Bella MD [Primary Care Provider] - 1-2 days Andres Shoemaker MD [STAFF PHYSICIAN] - 1 Week Activity/Diet/Wound Care/Special Instructions: Recommend Benefiber or Metamucil daily to keep bowel movements soft and regular Discontinue taking Xarelto and Motrin for 2 weeks due to risk of bleeding Discharge Disposition: HOME SELF-CARE
[2022-09-09 13:18] VITALS: BP 134/65; PULSE 66; RESP 18; TEMP 97.6
--- NOTE | 2022-09-09 14:24 | P.PN ---
Subjective Progress Note Date: 09/09/22 History of Presenting Illness: Patient is a very pleasant 82-year-old female with a past medical history of atrial fibrillation and DVT on anticoagulation with Xarelto, hypertension, hyperlipidemia, hypothyroidism, and GERD. She presented to the emergency depart ment with the chief complaint of rectal bleeding status post internal and external hemorrhoidectomy completed by Dr. Hope on 08/29/22. Patient reported that she resumed her oral anticoagulant, Xarelto on 08/31/22 and reported she first noticed bleeding from her rectum overnight which was initia lly described as being light pink but after having a bowel movement reported to develop rectal pain accompanied by dark colored blood with clots. She underwent full evaluation in the emergency department and was found to have stable hemoglobin at 12.2 and slightly elevated BUN of 31. Patient was noted to have active seepage of dark colored blood per rectum and was admitted under Gen. surgery team and we have been consulted for medical management throughout patient's hospitalization. Upon evaluation at bedside, patient was alert and oriented to person, place, time, and situation. She reported mild pain in her rectum and upon external physical exam, patient had noted external hemorrhoid pr esent and did have active seepage of dark colored blood on gauze. Internal rectal exam deferred to general surgery team secondary to active rectal bleeding. Patient denied having any abdominal pain or discomfort, she denied having any nausea, vomiting, chest pain, palpitations, shortness of breath, dizziness, or lightheadedness. Patient reports last taking her Xarelto 11/07/21. Physical exam: Patient seen and fully evaluated at bedside. Hemoglobin stable at 11.2. Patient reports she has not had any further episodes of blood from rectum since yesterday evening and reports full resolution of previously reported rectal pain. She denies having any headache, lightheadedness, dizziness, nausea, vomiting, or any other complaints. Vital signs stable. Vital signs reviewed and stable. General: Nontoxic, no distress and appears stated age. Derm: Skin warm and dry, normal coloration for ethnicity. Head: Atraumatic, normocephalic and symmetric. Eyes: EOMs intact, no lid lag, and anicteric sclera Mouth: no lip lesions, mucus membranes moist Cardiovascular: regular rate and rhythm with normal S1S2, no murmur, positive posterior tibial pulses bilaterally, and cap refill < 2 seconds. Lungs: Respirations even, regular, and unlabored on room air. Lungs CTA bilaterally, no rhonchi, no rales, no wheezing, and no accessory muscle usage. GI/: soft, nontender to palpation, no guarding, no appreciable organomegaly Ext: ROM intact. No gross muscle atrophy, no edema, no contractures Neuro: Speech clear, face symmetrical and CN II-XII grossly intact with no noted focal neuro deficits Psych: Alert and oriented to person, place, time, and situation. Appropriate and pleasant affect. Assessment and Plan of Care: Lower GI bleed Rectal bleeding after resuming oral anticoagulant status post internal and external hemorrhoidectomy on 08/29/22 -Patient admitted under Gen. surgery team -Monitor H&H every 6 hours x 4 and transfuse as needed for hemoglobin less than 7. -Protonix 40 mg IVP twice daily. -Nothing by mouth until cleared by general surgery team. -Continued gentle hydration with 0.9% normal. -Hold Xarelto and SCDs for DVT prophylaxis. Paroxysmal atrial fibrillation History of DVT of left lower extremity -Hold anticoagulation with Xarelto secondary to acute lower GI bleed. Hypertension -Monitor vital signs and continue daily medication regimen with losartan and metoprolol. We will hold hydrochlorothiazide at this time secondary to need for gentle IV fluid hydration due to current lower GI bleeding. Hypothyroidism -Continue daily medication regimen with levothyroxine. Hyperlipidemia -Continue daily medication regimen with pravastatin. GERD -GI prophylaxis with Protonix 40 mg twice a day Thank you for allowing us to participate in the care of this pleasant patient. Do not hesitate to contact us with questions. Someone can be reached from the [facility] hospitalist group all hours of the day at [phone] or via [employer]. I reviewed the documentation as provided by the KARON above, who is the original author of this note. I agree with the documented assessment and plan, with the following changes: none Objective - Vital Signs Vital signs: Vital Signs Temp 98.3 F 09/09/22 04:00 Pulse 79 09/09/22 04:00 Resp 12 09/09/22 04:00 BP 145/72 09/09/22 04:00 Pulse Ox 97 09/09/22 04:00 FiO2 Intake & Output 09/08/22 09/09/22 09/09/22 18:59 06:59 18:59 Output Total 650 Balance -650 Weight 88.451 kg Output: Urine 650 Other: Voiding Method External Catheter # Bowel Movements 1 - Labs CBC & Chem 7: 09/09/22 08:10 09/09/22 08:10 Labs: Abnormal Lab Results - Last 24 Hours (Table) 09/08/22 09/08/22 09/08/22 Range/Units 09:27 16:30 21:55 RBC 3.61 L (3.80-5.40) m/uL Hgb 10.7 L 11.2 L 11.3 L (11.4-16.0) gm/dL Hct 31.7 L (34.0-46.0) %
== END 2022-09-09 14:26 | disposition home or self-care (01) | DRG 378 ==
LOC: EC 03:51 → 5NMEDONC 05:13 → 3SCARD 05:51 → OBSVTOIN 09:23 → 3SCARD 19:17
PROVIDERS: ADMIT Surgery; ATTEND Surgery
DX: K62.5 Hemorrhage of anus and rectum (principal); D62 Acute posthemorrhagic anemia; D68.32 Hemorrhagic disorder due to extrinsic circulating anticoagulants; E78.5 Hyperlipidemia, unspecified; I48.0 Paroxysmal atrial fibrillation; E89.0 Postprocedural hypothyroidism; K57.90 Diverticulosis of intestine, part unspecified, without perforation or abscess without bleeding; T45.515A Adverse effect of anticoagulants, initial encounter; I10 Essential (primary) hypertension; K64.4 Residual hemorrhoidal skin tags; F32.A Depression, unspecified; K21.9 Gastro-esophageal reflux disease without esophagitis; M19.90 Unspecified osteoarthritis, unspecified site; M48.00 Spinal stenosis, site unspecified; I83.90 Asymptomatic varicose veins of unspecified lower extremity; Z79.01 Long term (current) use of anticoagulants; Z86.718 Personal history of other venous thrombosis and embolism; Z96.641 Presence of right artificial hip joint; Z96.651 Presence of right artificial knee joint; Z96.652 Presence of left artificial knee joint; Z85.828 Personal history of other malignant neoplasm of skin; Z87.11 Personal history of peptic ulcer disease; Z87.440 Personal history of urinary (tract) infections; Z88.2 Allergy status to sulfonamides
CPT/HCPCS: 36415; 80048; 80053; 83690; 85025; 85027; 85610; 85730; 96361; 96374; 99285

== ENCOUNTER → 2022-09-12 | Outpatient (CLI) | payer MEDICARE ==
[2022-09-12 18:34] LABS: Basophils # (A) 0.06 X 10*3/uL (0.00-0.10); Basophils % (A) 0.9 %; Eosinophils # (A) 0.35 X 10*3/uL (0.04-0.35); Eosinophils % (A) 5.3 %; HCT 35.3 % (37.2-46.3); HGB 10.8 g/dL (12.0-15.0); Immature Grans, Automated 0.8 %; Lymphocytes # (A) 1.44 X 10*3/uL (0.90-5.00); Lymphocytes % (A) 21.8 %; MCH 28.3 pg (27.0-32.0); MCHC 30.6 g/dL (32.0-37.0); MCV 92.7 fL (80.0-97.0); Mean Platelet Volume 9.9 fL (9.5-12.2); Monocytes # (A) 0.84 X 10*3/uL (0.20-1.00); Monocytes % (A) 12.7 %; NRBC Per 100 WBC 0 /100 WBCS (0.0-0.0); Neutrophils # (A) 3.88 X 10*3/uL (1.80-7.70); Neutrophils % (A) 58.5 %; Platelet Count 291 X 10*3/uL (140-440); RBC 3.81 X 10*6/uL (4.10-5.20); RDW 15.6 % (11.5-14.5); WBC 6.62 X 10*3/uL (4.50-10.00)
[2022-09-12 19:01] LABS: African American GFR (CKD) 60.8 (60.0-200.0); BUN/Creat Ratio 20.1 Ratio (12.00-20.00); Blood Urea Nitrogen 20.1 mg/dL (9.0-27.0); Calcium 9.7 mg/dL (8.7-10.3); Non-African American GFR(CKD) 52.4 (60.0-200.0); Potassium 4.5 mmol/L (3.5-5.5); T4, Free (Free Thyroxine) 1.59 ng/dL (0.800-1.800)
[2022-09-15 16:20] LABS: % Iron Saturation 16.98 (12.00-45.00)
== END | disposition home or self-care (01) ==
LOC: LABWHC1 13:15
PROVIDERS: ATTEND Internal Medicine
DX: K64.9 Unspecified hemorrhoids (principal); E03.9 Hypothyroidism, unspecified
CPT/HCPCS: 36415; 80048; 82607; 82746; 83540; 83550; 84439; 84443; 85025

== ENCOUNTER → 2022-10-16 | Outpatient (CLI) | payer MEDICARE ==
[2022-10-16 23:48] LABS: % Iron Saturation 16.43 (12.00-45.00)
[2022-10-17 00:42] LABS: HCT 42.8 % (37.2-46.3); HGB 12.6 g/dL (12.0-15.0); MCH 28.6 pg (27.0-32.0); MCHC 29.4 g/dL (32.0-37.0); MCV 97.1 fL (80.0-97.0); Mean Platelet Volume 10.3 fL (9.5-12.2); NRBC Per 100 WBC 0 /100 WBCS (0.0-0.0); Platelet Count 278 X 10*3/uL (140-440); RBC 4.41 X 10*6/uL (4.10-5.20); RDW 15.8 % (11.5-14.5); WBC 6.53 X 10*3/uL (4.50-10.00)
== END | disposition home or self-care (01) ==
LOC: LABWHC1 13:00
PROVIDERS: ATTEND Internal Medicine
DX: D50.9 Iron deficiency anemia, unspecified (principal)
CPT/HCPCS: 36415; 83540; 83550; 85027

== ENCOUNTER → 2023-09-16 | Outpatient (CLI) | payer MEDICARE ==
[2023-09-16 12:51] LABS: Basophils # (A) 0.1 k/uL (0-0.2); Basophils % (A) 1 %; Eosinophils # (A) 0.3 k/uL (0-0.7); Eosinophils % (A) 4 %; HCT 41.1 % (34.0-46.0); HGB 13.6 gm/dL (11.4-16.0); Lymphocytes # (A) 1.1 k/uL (1.0-4.8); Lymphocytes % (A) 16 %; MCHC 33.1 g/dL (31.0-37.0); MCV 93.8 fL (80.0-100.0); Mean Platelet Volume 8.1; Monocytes # (A) 0.6 k/uL (0-1.0); Monocytes % (A) 9 %; Neutrophils # (A) 4.7 k/uL (1.3-7.7); Neutrophils % (A) 68 %; Platelet Count 270 k/uL (150-450); RBC 4.38 m/uL (3.80-5.40); RDW 13.3 % (11.5-15.5); WBC 6.9 k/uL (3.8-10.6)
[2023-09-16 13:25] LABS: RBC Morphology Normal
[2023-09-16 16:11] LABS: % Iron Saturation 26.41 (12.00-45.00); ALT 17 U/L (8-44); AST 21 U/L (13-35); Albumin 4.2 g/dL (3.8-4.9); Alkaline Phosphatase 72 U/L (41-126); Carbon Dioxide 24.1 mmol/L (21.6-31.8); Chloride 103 mmol/L (96-109); Ferritin 97.5 ng/mL (10.0-291.0); Glucose 95 mg/dL (70-110); Iron 75 UG/DL (50-170); Potassium 4.3 mmol/L (3.5-5.5); Sodium 142 mmol/L (135-145); T4, Free (Free Thyroxine) 1.89 ng/dL (0.80-1.80); Total Bilirubin 0.6 mg/dL (0.3-1.2); Total Iron Binding Capacity 284 UG/DL (228-460); Total Protein 7.2 g/dL (6.2-8.2)
== END | disposition home or self-care (01) ==
LOC: LABWHC1 09-15 10:33
PROVIDERS: ATTEND Internal Medicine
DX: Z00.00 Encounter for general adult medical examination without abnormal findings (principal); Z11.59 Encounter for screening for other viral diseases; I12.9 Hypertensive chronic kidney disease with stage 1 through stage 4 chronic kidney disease, or unspecified chronic kidney disease; N18.30 Chronic kidney disease, stage 3 unspecified; D50.9 Iron deficiency anemia, unspecified; M85.80 Other specified disorders of bone density and structure, unspecified site; E03.9 Hypothyroidism, unspecified
CPT/HCPCS: 36415; 80053; 82306; 82728; 83540; 83550; 84439; 84443; 85025; 86803

== ENCOUNTER → 2023-10-21 | Outpatient (CLI) | payer MEDICARE ==
--- NOTE | 2023-10-22 08:32 | XR ---
EXAMINATION TYPE: XR femur RT DATE OF EXAM: 10/21/2023 1:56 PM CLINICAL INDICATION:Female, 83 years old with history of fracture in 2016 and pain now. Unspecified o steoarthritis unspecified site M19.90; [facility] COMPARISON: None TECHNIQUE: The right femur was examined in 4 views. FINDINGS / IMPRESSION: Right total hip arthroplasty appears intact and normally aligned. Right total knee arthroplasty and l shayna fixation plate along the lateral aspect of the mid to distal femur with transfixing screws and a couple of additional screws in the distal femoral metaphysis, appear to be intact without evidence of hardware complication. Corticated deformity of the distal femur consistent with remote healed fracture. No acute fracture or osseous destructive process is seen. Unremarkable soft tissues.
== END | disposition home or self-care (01) ==
LOC: RADXRMAIN 13:36
PROVIDERS: ATTEND Internal Medicine
DX: M16.11 Unilateral primary osteoarthritis, right hip (principal); Z96.641 Presence of right artificial hip joint

== ENCOUNTER → 2023-10-28 | Outpatient (CLI) | payer MEDICARE ==
--- NOTE | 2023-10-28 16:16 | XR ---
EXAMINATION TYPE: XR lumbar spine 2 or 3V DATE OF EXAM: 10/28/2023 3:52 PM CLINICAL INDICATION:Female, 83 years old with history of M48.061; [facility] COMPARISON: CT 08/08/2022. TECHNIQUE: XR lumbar spine 2 or 3V - Frontal, lateral and coned in L5-S1 lateral views of the spine. FINDINGS: No evidence of any acute osseous pathology. Compression deformity of the L3 vertebral body similar prior imaging. Wedging of the L1 vertebral body also similar to 2021 exam.Grade 2 anterolist hesis of L4 on L5 of which has progressed from grade 1 on prior imaging on 07/31/2022.. Scattered dis c space narrowing. Multilevel marginal osteophyte formation throughout the visualized spine. There is facet joint arthropathy throughout the spine. Scattered at least mild neural foraminal stenosis. IMPRESSION: 1. No acute fractures, remote fracture of the L3 vertebral body. 2. Moderate multilevel disc degeneration. 3. Mildly progressed grade 2 anterolisthesis of L4 and L5.
== END | disposition home or self-care (01) ==
LOC: RADXRMAIN 15:40
PROVIDERS: ATTEND Internal Medicine
DX: M51.17 Intervertebral disc disorders with radiculopathy, lumbosacral region (principal); M43.16 Spondylolisthesis, lumbar region; M48.061 Spinal stenosis, lumbar region without neurogenic claudication
CPT/HCPCS: 72100

== ENCOUNTER → 2023-11-13 | Outpatient (CLI) | payer MEDICARE ==
--- NOTE | 2023-11-13 14:35 | MR ---
EXAMINATION TYPE: MR lumbar spine wo con DATE OF EXAM: 11/13/2023 COMPARISON: 11/26/2018 HISTORY: Lower back pain, RLE radiculopathy x 2 mos. TECHNIQUE: Multiplanar, multisequence images of the lumbar spine were acquired without IV contrast. L1-L2: Normal disc appearance without desiccation. No herniation, protrusion or disc bulging. No ca nal stenosis is present. Foramina are patent bilaterally. L2-L3: Moderate degenerative disc space narrowing with posterior disc bulge. [id number] central stenosis. Bilateral neural foraminal encroachment. Loss of vertebral body height at L3 is stable fro m prior study with underlying hemangioma. L3-L4: Severe disc desiccation moderate posterior disc bulge. Hypertrophy ligamentum flavum and facet joint arthropathy resulting in severe central stenosis. Bilateral foraminal encroachment. No marina d isc herniation. L4-L5: Severe disc desiccation moderate posterior disc bulge. Hypertrophy ligamentum flavum and facet joint arthropathy resulting in severe central stenosis. Bilateral foraminal encroachment. No marina d isc herniation. 1 anterolisthesis L4 and L5 is unchanged. L5-S1: Mild disc desiccation posterior disc bulge L5 and S1 hemangioma is. Borderline central stenosi s. Mild left foraminal encroachment. Lumbar segments are intact. No paraspinal masses are identified. Conus medullaris has a normal appe arance. IMPRESSION: 1. Multilevel degenerative disc disease and central stenosis as outlined above.
== END | disposition home or self-care (01) ==
LOC: RADMRIMAIN 13:14
PROVIDERS: ATTEND Internal Medicine
DX: M51.16 Intervertebral disc disorders with radiculopathy, lumbar region (principal); M48.061 Spinal stenosis, lumbar region without neurogenic claudication
CPT/HCPCS: 72148

== ENCOUNTER → 2023-12-10 | Outpatient (CLI) | payer MEDICARE ==
--- NOTE | 2023-12-10 10:48 | XR ---
EXAMINATION TYPE: XR femur RT DATE OF EXAM: 12/10/2023 COMPARISON: 10/21/2023 HISTORY: Hyperextension, pain TECHNIQUE: 2 view right femur FINDINGS: There is a right hip prosthesis with acetabular component. No acute fractures are evident. Small cortical calcification lateral to the proximal femur was present previously and unchanged. The region of the lesser trochanter appears stable. There is a plate and screw fixation through the dista l diaphyseal femur. Right knee prosthesis is present. No acute transfusion evident IMPRESSION: 1. Status post open reduction internal fixation as well as hip and knee prostheses. No acute fractur es evident. Follow-up can be performed as clinically indicated
--- NOTE | 2023-12-10 10:49 | XR ---
EXAMINATION TYPE: XR Hip Complete RT DATE OF EXAM: 12/10/2023 COMPARISON: 10/21/2023 HISTORY: Pain hyperextension TECHNIQUE: 2 view right hip FINDINGS: Right hip prosthesis is present. Acetabular component present. No acute fractures or disloc ations evident. Follow up exams can be performed as clinically indicated IMPRESSION: 1. No acute osseous abnormality the level of the right hip prosthesis.
--- NOTE | 2023-12-10 10:50 | XR ---
EXAMINATION TYPE: XR chest 2V DATE OF EXAM: 12/10/2023 COMPARISON: 06/25/2021 INDICATION: Hypertension, pain right hip TECHNIQUE: Frontal and lateral views of the chest are obtained. FINDINGS: The heart size is normal. The pulmonary vasculature is normal. The lungs are clear. IMPRESSION: 1. No acute pulmonary process.
== END | disposition home or self-care (01) ==
LOC: RADXRMAIN 10:05
PROVIDERS: ATTEND Internal Medicine
DX: M25.551 Pain in right hip (principal); I10 Essential (primary) hypertension; M79.651 Pain in right thigh; R06.00 Dyspnea, unspecified; Z96.641 Presence of right artificial hip joint; Z96.651 Presence of right artificial knee joint; Z98.890 Other specified postprocedural states
CPT/HCPCS: 71046; 73502

== ENCOUNTER → 2024-12-14 | Outpatient (CLI) | payer MEDICARE ==
--- NOTE | 2024-12-14 15:43 | XR ---
EXAMINATION TYPE: XR shoulder complete RT, XR humerus RT DATE OF EXAM: 12/14/2024 3:33 PM INDICATION: Patient age:Female; 84 years old; Reason for study: M25.511 PAIN IN RIGHT SHOULDER; pain COMPARISON: Chest radiograph 12/10/2023 TECHNIQUE: The right shoulder was examined in AP, internally rotated and scapular Y projections. . Right humerus was evaluated in frontal and lateral projections. FINDINGS: No evidence of acute osseous pathology, joint dislocation, or soft tissue swelling. AC joint appears intact. There is joint space narrowing with marginal osteophytosis of the right glenohumeral joint. T he remaining portions of the visualized chest are unremarkable. IMPRESSION: 1. No acute osseous pathology. 2. Mild osteoarthritic changes of the right shoulder. [facility], , 12/14/2024 3:40 PM
== END | disposition home or self-care (01) ==
LOC: RADXRMAIN 15:05
PROVIDERS: ATTEND Internal Medicine
DX: M19.011 Primary osteoarthritis, right shoulder (principal)

== ENCOUNTER 2025-03-23 23:48 | Inpatient (IN) | payer MEDICARE ==
--- NOTE | 2025-03-24 00:09 | ED ---
Abdominal Pain HPI - General Source: patient, RN notes reviewed, old records reviewed Mode of arrival: wheelchair Limitations: no limitations <Ksenia Gómez - Last Filed: 03/24/25 04:09> <Satnam Vazquez - Last Filed: 03/24/25 06:05> - General Chief Complaint: Abdominal Pain Stated Complaint: Abd Pain Time Seen by Provider: 03/24/25 00:07 - History of Present Illness Initial Comments: 85-year-old female presented to ER for evaluation of abdominal pain. Patient states she has chronic issues with constipation. She reports over the past 2 weeks she has had an increase in the symptoms. She has tried Metamucil, stool softeners, laxative and changes to her diet without improvement. Patient states today she started to experience abdominal discomfort. She states currently. Her abdominal pain is located on the right side. She states it is a crampy discomfort. She denies any fevers, nausea, vomiting, urinary complaints, chest pain, shortness of breath, dizziness, lightheadedness. She reports a history of a cholecystectomy. No other complaints (Ksenia Gómez) - Related Data Home Medications Medication Instructions Recorded Confirmed Methenamine Hippurate [Hiprex] 1 gm PO QID 09/08/18 09/08/22 Metoprolol Tartrate [Lopressor] 50 mg PO DAILY 09/08/18 09/08/22 Vit C/E/Zn/Coppr/Lutein/Zeaxan 2 cap PO W/SUPPER 02/22/19 09/08/22 [Preservision Areds 2 Softgel] hydroCHLOROthiazide 25 mg PO DAILY 03/21/19 09/08/22 DULoxetine HCL [Cymbalta] 60 mg PO DAILY 11/19/20 09/08/22 Pravastatin Sodium [Pravachol] 20 mg PO HS 01/10/21 09/08/22 Losartan Potassium [Cozaar] 100 mg PO DAILY 06/25/21 09/08/22 Cholecalciferol [Vitamin D3 (25 50 mcg PO DAILY 07/17/21 09/08/22 Mcg = 1000 Iu)] Ascorbic Acid [Vitamin C] 500 mg PO DAILY 11/08/21 09/08/22 Multivit with Calcium,Iron,Min 1 tab PO DAILY 11/08/21 09/08/22 [Women's Multivitamin] busPIRone HCL 10 mg PO BID 05/30/22 09/08/22 DULoxetine HCL [Cymbalta] 30 mg PO DAILY 08/08/22 09/08/22 Levothyroxine Sodium [Synthroid] 112 mcg PO DAILY 08/08/22 09/08/22 Pantoprazole [Protonix] 40 mg PO DAILY 08/08/22 09/08/22 Metoprolol Tartrate [Lopressor] 25 mg PO HS 08/27/22 09/08/22 Trimethoprim [Trimpex] 100 mg PO W/SUPPER 08/27/22 09/08/22 Previous Rx's Medication Instructions Recorded Acetaminophen Tab [Tylenol] 650 mg PO Q6H #30 tab 08/29/22 Docusate [Colace] 100 mg PO BID #20 capsule 08/29/22 oxyCODONE HCL [OxyIR] 5 mg PO Q6H PRN 3 Days #10 tab 08/29/22 Allergies Allergy/AdvReac Type Severity Reaction Status Date / Time Sulfa (Sulfonamide Allergy Rash/Hives Verified 03/23/25 23:51 Antibiotics) Review of Systems ROS Other: All systems not noted in ROS Statement are negative. <Ksenia Gómez - Last Filed: 03/24/25 04:09> ROS Other: All systems not noted in ROS Statement are negative. <Satnam Vazquez - Last Filed: 03/24/25 06:05> ROS Statement: Those systems with pertinent positive or pertinent negative responses have been documented in the HPI. Past Medical History Past Medical History: Atrial Fibrillation, Cancer, Deep Vein Thrombosis (DVT), Hyperlipidemia, Hypertension, Osteoarthritis (OA), Thyroid Disorder Additional Past Medical History / Comment(s): HX DVT 2008., chronic UTI's, varicose veins, constipation, hx "ischemic colitis" 2010, skin cancer, SPINAL STENOSIS, NT left LEG/FOOT- USES WALKER., collapsed tendon left foot., ?duodenal ulcer, episode of a-fib after knee replacement in May.-has been on xarelto since, recent adm. for rectal bldg. related to hemorrhoids History of Any Multi-Drug Resistant Organisms: None Reported Past Surgical History: Bladder Surgery, Cholecystectomy, Hysterectomy, Joint R eplacement, Orthopedic Surgery Additional Past Surgical History / Comment(s): Parathyroidectomy, Bladder suspension, smita and screws right femur. Cortisone injection, pain clinic procedures. rt hip replacement, rt knee replacement 06/2021, lakisha cataracts., left knee replaced 2021, colonoscopy recently Past Anesthesia/Blood Transfusion Reactions: No Reported Reaction Past Psychological History: Depression Smoking Status: Never smoker - Past Family History Father Family Medical History: Cancer Additional Family Medical History / Comment(s): LUNG CANCER Mother Family Medical History: Cancer Additional Family Medical History / Comment(s): Breast Cancer. <Ksenia Gómez - Last Filed: 03/24/25 04:09> General Exam Limitations: no limitations General appearance: alert, in no apparent distress Respiratory exam: Present: normal lung sounds bilaterally. Absent: respiratory distress, wheezes, rales, rhonchi, stridor Cardiovascular Exam: Present: regular rate, normal rhythm, normal heart sounds. Absent: systolic murmur, diastolic murmur, rubs, gallop, clicks GI/Abdominal exam: Present: soft, tenderness (Right-sided), normal bowel sounds Neurological exam: Present: alert, oriented X3, CN II-XII intact Skin exam: Present: warm, dry, intact, normal color. Absent: rash <Ksenia Gómez - Last Filed: 03/24/25 04:09> Course <Ksenia Gómez - Last Filed: 03/24/25 04:09> Vital Signs 03/23/25 03/24/25 03/24/25 23:49 02:10 05:58 Temperature 97.7 F 97.3 F L Pulse Rate 80 73 73 Respiratory 17 19 18 Rate Blood Pressure 138/83 166/63 153/95 O2 Sat by Pulse 96 100 96 Oximetry - Reevaluation(s) Reevaluation #1: 03/24/25 04:[address] Vazquez. (Ksenia Gómez) Medical Decision Making - Lab Data Result diagrams: 03/24/25 00:28 03/24/25 00:28 - EKG Data -: EKG Interpreted by Me <Ksenia Gómez - Last Filed: 03/24/25 04:09> - Lab Data Result diagrams: 03/24/25 00:28 03/24/25 00:28 <Satnam Vazquez - Last Filed: 03/24/25 06:05> - Medical Decision Making Was pt. sent in by a medical professional or institution (, [facility], ASSOCIATE PROPERTY MANAGER, urgent care, hospital, or fci...) When possible be specific @ -No Did you speak to anyone other than the patient for history (EMS, parent, family, police, friend...)? What history was obtained from this source @ -No Did you review nursing and triage notes (agree or disagree)? Why? @ -I reviewed and agree with nursing and triage notes Were old charts reviewed (outside hosp., previous admission, EMS record, old EKG, old radiological studies, urgent care reports/EKG's, fci records)? Report findings @ -No old charts were reviewed Differential Diagnosis (chest pain, altered mental status, abdominal pain women, abdominal pain men, vaginal bleeding, weakness, fever, dyspnea, syncope, headache, dizziness, GI bleed, back pain, seizure, CVA, palpatations, mental health, musculoskeletal)? @ -Differential Abdominal Pain Women:Appendicitis, Cholecystitis, diverticulosis, ischemic bowel, pancreatitis, hepatitis, UTI, gastroenteritis, AAA, incarcerated hernia, bowel obstruction, constipation, inflammatory bowel, hepatitis, peptic ulcer disease, splenic infarction, perforated viscus, vulvitis, ovarian torsion, PID, kidney stone, placenta abruption, this is not meant to be an all-inclusive list EKG interpreted by me (3pts min.). @ -As above X-rays interpreted by me (1pt min.). @ -None done CT interpreted by me (1pt min.). @ -pending U/S interpreted by me (1pt. min.). @ -None done What testing was considered but not performed or refused? (CT, X-rays, U/S, labs)? Why? @ -None What meds were considered but not given or refused? Why? @ -None Did you discuss the management of the patient with other professionals (professionals i.e. , [facility], ASSOCIATE PROPERTY MANAGER, lab, RT, psych nurse, social security benefits interviewer, manager procurement, teacher, fire officer, case therapist)? Give summary @ -No Was smoking cessation discussed for >3mins.? @ -No Was critical care preformed (if so, how long)? @ -No Were there social determinants of health that impacted care today? How? (Homelessness, low income, unemployed, alcoholism, drug addiction, transportation, low edu. Level, literacy, decrease access to med. care, [facility], rehab)? @ -No Was there de-escalation of care discussed even if they declined (Discuss DNR or withdrawal of care, Hospice)? DNR status @ -No What co-morbidities impacted this encounter? (DM, HTN, Smoking, COPD, CAD, Cancer, CVA, ARF, Chemo, Hep., AIDS, mental health diagnosis, sleep apnea, morbid obesity)? @ -None Was patient admitted / discharged? Hospital course, mention meds given and route, prescriptions, significant lab abnormalities, going to OR and other pertinent info. @ -85-year-old female presented the ER for evaluation of abdominal pain. Vital signs stable Laboratory studies unimpressive. Urinalysis and CT pending. PAtient signed out to Dr. aVzquez pending results and disposition.. (Ksenia Gómez) Patient has CT evidence of acute appendicitis. She has a normal white blood cell count, normal lactic acid. She started on Zosyn in the emergency department. She is admitted to Dr. Hope with internal medicine on consult. (Satnam Vazquez) - Lab Data Lab Results 03/24/25 03/24/25 03/24/25 Range/Units 00:28 00:28 00:28 WBC 9.68 (4.50-10.00) 10*3/uL RBC 4.31 (4.10-5.20) 10*6/uL Hgb 12.9 (12.0-15.0) g/dL Hct 38.8 (37.2-46.3) % MCV 90.0 (80.0-97.0) fL MCH 29.9 (27.0-32.0) pg MCHC 33.2 (32.0-37.0) g/dL Plt Count 271 (140-440) 10*3/uL MPV 10.6 (9.5-12.2) fL Immature Gran % (Auto) 0.2 % Neutrophils % 71.8 % Lymphocytes % 14.4 % Monocytes % 10.3 % Eosinophils % 2.7 % Basophils % 0.6 % Immature Gran # 0.02 (0.00-0.04) 10*3/uL Neutrophils # 6.95 (1.80-7.70) 10*3/uL Lymphocytes # 1.39 (0.90-5.00) 10*3/uL Monocytes # 1.00 (0.20-1.00) 10*3/uL Eosinophils # 0.26 (0.04-0.35) 10*3/uL Basophils # 0.06 (0.00-0.10) 10*3/uL PT 11.1 (10.0-12.5) sec INR 1.0 (<1.2) APTT 27.6 (22.0-30.0) sec Sodium 140 (137-145) mmol/L Potassium 4.0 (3.5-5.1) mmol/L Chloride 104 (98-107) mmol/L Carbon Dioxide 26 (22-30) mmol/L Anion Gap 10 mmol/L BUN 34 H (7-17) mg/dL Creatinine 0.86 (0.52-1.04) mg/dL Est GFR (CKD-EPI)AfAm 72 (>60 ml/min/1.73 sqM) Est GFR (CKD-EPI)NonAf 62 (>60 ml/min/1.73 sqM) Glucose 128 H (74-99) mg/dL Plasma Lactic Acid Iftikhar (0.7-2.0) mmol/L Calcium 9.8 (8.4-10.2) mg/dL Total Bilirubin 0.6 (0.2-1.3) mg/dL AST 23 (14-36) U/L ALT 11 (4-34) U/L Alkaline Phosphatase 71 (38-126) U/L Troponin I (0.000-0.034) ng/mL Total Protein 7.5 (6.3-8.2) g/dL Albumin 4.3 (3.5-5.0) g/dL Amylase 67 (30-110) U/L Lipase 105 (23-300) U/L Urine Color Urine Appearance (Clear) Urine pH (5.0-8.0) Ur Specific [place] (1.001-1.035) Urine Protein (Negative) Urine Glucose (UA) (Negative) Urine Ketones (Negative) Urine Blood (Negative) Urine Nitrite (Negative) Urine Bilirubin (Negative) Urine Urobilinogen (<2.0) mg/dL Ur Leukocyte Esterase (Negative) Urine RBC (0-5) /hpf Urine WBC (0-5) /hpf Urine WBC Clumps (None) /hpf Ur Squamous Epith Cells (0-4) /hpf Urine Bacteria (None) /hpf Hyaline Casts (0-2) /lpf Urine Mucus (None) /hpf 03/24/25 03/24/25 03/24/25 Range/Units 00:28 00:28 03:24 WBC (4.50-10.00) 10*3/uL RBC (4.10-5.20) 10*6/uL Hgb (12.0-15.0) g/dL Hct (37.2-46.3) % MCV (80.0-97.0) fL MCH (27.0-32.0) pg MCHC (32.0-37.0) g/dL Plt Count (140-440) 10*3/uL MPV (9.5-12.2) fL Immature Gran % (Auto) % Neutrophils % % Lymphocytes % % Monocytes % % Eosinophils % % Basophils % % Immature Gran # (0.00-0.04) 10*3/uL Neutrophils # (1.80-7.70) 10*3/uL Lymphocytes # (0.90-5.00) 10*3/uL Monocytes # (0.20-1.00) 10*3/uL Eosinophils # (0.04-0.35) 10*3/uL Basophils # (0.00-0.10) 10*3/uL PT (10.0-12.5) sec INR (<1.2) APTT (22.0-30.0) sec Sodium (137-145) mmol/L Potassium (3.5-5.1) mmol/L Chloride (98-107) mmol/L Carbon Dioxide (22-30) mmol/L Anion Gap mmol/L BUN (7-17) mg/dL Creatinine (0.52-1.04) mg/dL Est GFR (CKD-EPI)AfAm (>60 ml/min/1.73 sqM) Est GFR (CKD-EPI)NonAf (>60 ml/min/1.73 sqM) Glucose (74-99) mg/dL Plasma Lactic Acid Iftikhar 1.6 (0.7-2.0) mmol/L Calcium (8.4-10.2) mg/dL Total Bilirubin (0.2-1.3) mg/dL AST (14-36) U/L ALT (4-34) U/L Alkaline Phosphatase (38-126) U/L Troponin I 0.018 (0.000-0.034) ng/mL Total Protein (6.3-8.2) g/dL Albumin (3.5-5.0) g/dL Amylase (30-110) U/L Lipase (23-300) U/L Urine Color Colorless Urine Appearance Cloudy H (Clear) Urine pH 5.5 (5.0-8.0) Ur Specific [place] 1.032 (1.001-1.035) Urine Protein Negative (Negative) Urine Glucose (UA) Negative (Negative) Urine Ketones Negative (Negative) Urine Blood Negative (Negative) Urine Nitrite Positive H (Negative) Urine Bilirubin Negative (Negative) Urine Urobilinogen <2.0 (<2.0) mg/dL Ur Leukocyte Esterase Large H (Negative) Urine RBC 2 (0-5) /hpf Urine WBC 74 H (0-5) /hpf Urine WBC Clumps Occasional H (None) /hpf Ur Squamous Epith Cells 5 H (0-4) /hpf Urine Bacteria Moderate H (None) /hpf Hyaline Casts 5 H (0-2) /lpf Urine Mucus Rare H (None) /hpf - EKG Data EKG Comments: EKG taken at 00: 24 showing a sinus rhythm. No ST segment elevations or depressions. T wave inversions lead III. Ventricular rate 73, OR of 167, QRS duration 79, QT/QTc 386/412. (Ksenia Gómez) Disposition <Ksenia Gómez - Last Filed: 03/24/25 04:09> Is patient prescribed a controlled substance at d/c from ED?: No Time of Disposition: 06:05 <Satnam Vazquez - Last Filed: 03/24/25 06:05> Clinical Impression: Acute appendicitis Disposition: ADMITTED IP TO THIS HOSP Condition: Stable Referrals: Chris Bella DO [Primary Care Provider] - 1-2 days
[2025-03-24] MEDS: FAMOTIDINE 20 MG/2 ML VIAL IV STA (00:33)
[2025-03-24] MEDS: ACETAMINOPHEN TAB 325 MG TAB PO STA (00:34)
[2025-03-24] MEDS: SODIUM CHLORIDE 0.9% 1,000 ML IV ONE (00:42)
[2025-03-24 00:43] LABS: Basophils # (A) 0.06 10*3/uL (0.00-0.10); Basophils % (A) 0.6 %; Eosinophils # (A) 0.26 10*3/uL (0.04-0.35); Eosinophils % (A) 2.7 %; HCT 38.8 % (37.2-46.3); HGB 12.9 g/dL (12.0-15.0); Lymphocytes # (A) 1.39 10*3/uL (0.90-5.00); Lymphocytes % (A) 14.4 %; MCH 29.9 pg (27.0-32.0); MCHC 33.2 g/dL (32.0-37.0); Mean Platelet Volume 10.6 fL (9.5-12.2); Monocytes % (A) 10.3 %; Neutrophils # (A) 6.95 10*3/uL (1.80-7.70); Neutrophils % (A) 71.8 %; Platelet Count 271 10*3/uL (140-440); RBC 4.31 10*6/uL (4.10-5.20); RDW 13.8 % (11.5-14.5); WBC 9.68 10*3/uL (4.50-10.00)
[2025-03-24 01:18] LABS: Partial Thromboplastin Time 27.6 sec (22.0-30.0); Prothrombin Time 11.1 sec (10.0-12.5)
[2025-03-24 01:32] LABS: ALT 11 U/L (4-34); African American GFR (CKD) 72 (>60 ml/min/1.73 sqM); Albumin 4.3 g/dL (3.5-5.0); Blood Urea Nitrogen 34 mg/dL (7-17); Calcium 9.8 mg/dL (8.4-10.2); Carbon Dioxide 26 mmol/L (22-30); Chloride 104 mmol/L (98-107); Glucose 128 mg/dL (74-99); Lipase 105 U/L (23-300); Non-African American GFR(CKD) 62 (>60 ml/min/1.73 sqM); Total Bilirubin 0.6 mg/dL (0.2-1.3); Total Protein 7.5 g/dL (6.3-8.2)
[2025-03-24 01:33] LABS: AST 23 U/L (14-36); Alkaline Phosphatase 71 U/L (38-126); Amylase 67 U/L (30-110)
[2025-03-24 01:42] LABS: Anion Gap 10 mmol/L; Sodium 140 mmol/L (137-145)
[2025-03-24] MEDS: HYDROmorphone 1 MG/ML 1 ML SYRINGE IVP STA (03:31)
[2025-03-24] MEDS: ONDANSETRON 4 MG/2 ML VIAL IVP STA (03:31)
[2025-03-24 03:45] LABS: Appearance,Urine Cloudy (Clear); Bacteria,Urine Moderate /hpf; Bilirubin,Urine Negative (Negative); Blood,Urine Negative (Negative); Color,Urine Colorless; Glucose,Urine (UA) Negative (Negative); Hyaline Casts,Urine 5 /lpf (0-2); Ketones,Urine Negative (Negative); Leukocyte Esterase,Urine Large (Negative); Mucus,Urine Rare /hpf; Nitrite,Urine Positive (Negative); PH, Urine 5.5 (5.0-8.0); Protein,Urine Negative (Negative); RBC,Urine 2 /hpf (0-5); Specific Gravity,Urine 1.032 (1.001-1.035); Squamous Epithelial Cell,Urine 5 /hpf (0-4); Urobilinogen,Urine <2.0 mg/dL (<2.0); WBC,Urine 74 /hpf (0-5)
--- NOTE | 2025-03-24 04:41 | CT ---
EXAM: CT Abdomen and Pelvis With Intravenous Contrast CLINICAL HISTORY: ITS.REASON CT Reason: right sided abs pain/constipation TECHNIQUE: Axial computed tomography images of the abdomen and pelvis with intravenous contrast. CTDI is 26.8 mGy and DLP is 1292.6 mGy-cm. This CT exam was performed using one or more of the following dose reduction techniques: automated exposure control, adjustment of the mA and/or kV according to patient size, and/or use of iterative reconstruction technique. COMPARISON: No relevant prior studies available. FINDINGS: Lung bases: Unremarkable. No mass. No consolidation. ABDOMEN: Liver: Hepatic cysts, measuring up to 1.9 cm. Gallbladder and bile ducts: Status-post cholecystectomy. No ductal dilation. Pancreas: Unremarkable. No mass. No ductal dilation. Spleen: Unremarkable. No splenomegaly. Adrenals: Unremarkable. No mass. Kidneys and ureters: Unremarkable. No solid mass. No hydronephrosis. Stomach and bowel: Diverticulosis, without acute diverticulitis. No small bowel obstruction. No free air. PELVIS: Appendix: Positive for acute appendicitis, consisting of a distended appendix, measuring up to 12 mm, with mild surrounding inflammation. Surgical evaluation recommended. Bladder: Unremarkable. No mass. Reproductive: Unremarkable as visualized. ABDOMEN and PELVIS: Intraperitoneal space: See above. Bones/joints: Degenerative changes of the spine. No acute fracture. No dislocation. Right hip arthroplasty. Soft tissues: Unremarkable. Vasculature: Atherosclerotic changes of the aorta. No abdominal aortic aneurysm. Lymph nodes: Unremarkable. No enlarged lymph nodes. IMPRESSION: Positive for acute appendicitis, consisting of a distended appendix, measuring up to 12 mm, with mild surrounding inflammation. Surgical evaluation recommended. <MYCVCSECTION> Communications: 03/24/25 04:45 Verify Receipt Verified receipt with SEJAL Harrington in ER for Dr. Vazquez on 03/24 04:44 (-04:00)
[2025-03-24] MEDS: PIPERACILLIN-TAZOBACTAM 3.375 GM in SODIUM CHLORIDE 0.9% 100 ML IVPB ONE (05:56)
[2025-03-24] MEDS: SODIUM CHLORIDE 0.9% 1,000 ML IV SCH (05:58)
[2025-03-24] MEDS ORDERED: NALOXONE 0.4 MG/ML 1 ML VIAL IV PRN (06:03)
[2025-03-24] MEDS ORDERED: ACETAMINOPHEN TAB 325 MG TAB PO PRN (06:03)
[2025-03-24] MEDS: HYDROmorphone 0.5 MG/0.5 ML SYRINGE IVP PRN (06:46)
[2025-03-24] MEDS ORDERED: ONDANSETRON 4 MG/2 ML VIAL IVP PRN (11:22)
--- NOTE | 2025-03-24 11:23 | P.GSHP ---
History of Present Illness H&P Date: 03/24/25 CHIEF COMPLAINT: Abdominal pain HISTORY OF PRESENT ILLNESS: This is a 85-year-old who presented to the hospital with complaints of right lower quadrant abdominal pain that started yesterday afternoon. Patient has reported having issues with constipation over the last few months. She has had complaints of abdominal pain but yesterday the pain became very severe and she came into the ER for further evaluation. Patient denies any fever chills or sweats. Denies any nausea or vomiting. CT scan abdomen pelvis had reported acute appendicitis. She has been started on IV antibiotics. Her past abdominal surgical history does include cholecystectomy, bladder surgery and hysterectomy. Patient has a known history of atrial fibrillation and is on Xarelto at home. Last dose of Xarelto was yesterday morning, 03/23/2025. PAST MEDICAL HISTORY: Atrial Fibrillation, Cancer, Deep Vein Thrombosis (DVT), Hyperlipidemia, Hypertension, Osteoarthritis (OA), Thyroid Disorder, HX DVT 2008., chronic UTI's, varicose veins, constipation, hx "ischemic colitis" 2010, skin cancer, SPINAL STENOSIS, NT left LEG/FOOT- USES WALKER., collapsed tendon left foot., ?duodenal ulcer, episode of a-fib after knee replacement in May.-has been on xarelto since, recent adm. for rectal bldg. related to hemorrhoids PAST SURGICAL HISTORY: Bladder Surgery, Cholecystectomy, Hysterectomy, Joint Replacement, Orthopedic Surgery MEDICATIONS: See below ALLERGIES: See below SOCIAL HISTORY: No illicit drug use. REVIEW OF SYSTEMS: CONSTITUTIONAL: Denies fever or chills. HEENT: Denies blurred vision, vision changes, or eye pain. Denies hemoptysis CARDIOVASCULAR: Denies chest pain or pressure. RESPIRATORY: No shortness of breath. GASTROINTESTINAL: See HPI for pertinent findings HEMATOLOGIC: Denies bleeding disorders. GENITOURINARY: Denies any blood in urine or increased urinary frequency. SKIN: Denies pruitis. Denies rash. PHYSICAL EXAM: VITAL SIGNS: Reviewed GENERAL: Well-developed in no acute distress. HEENT: No sclera icterus. Extraocular movements grossly intact. Moist buccal mucosa. Head is atraumatic, normocephalic. No nasal drainage. ABDOMEN: Soft. Nondistended. Tender with palpation to right lower quadrant NEUROLOGIC: Alert and oriented. Cranial nerves II through XII grossly intact. LABORATORY DATA: WBC 9.68 Hgb 12.9 platelets 271 Sodium is 140 potassium 4.0 creatinine 0.86 Lactic acid 1.6 LFTs normal Lipase 105 IMAGING: CT scan abdomen pelvis reports positive for acute appendicitis. Consisting of a distended appendix measuring up to 12 mm with mild surrounding inflammation ASSESSMENT: 1. Acute appendicitis 2. History of atrial fibrillation on Xarelto at home last dose yesterday morning, 03/23/2025 PLAN: - Patient is scheduled for laparoscopic appendectomy tomorrow with Dr. Hope - Surgery scheduled for tomorrow due to patient taking Xarelto yesterday morning. Recommend patient being off of anticoagulation for at least 48 hours prior to surgical intervention this was explained to patient. - Continue antibiotics - IV pain medications adjusted. Added IV Tylenol scheduled. Change Dilaudid to 1 mg every 3 hours as needed for pain - Continue IV fluids - Consult medicine for medical management Physician Dental Hygienist Mobile Coordinator note has been reviewed by physician. Signing provider agrees with the documented findings, assessment, and plan of care. Past Medical History Past Medical History: Atrial Fibrillation, Cancer, Deep Vein Thrombosis (DVT), Hyperlipidemia, Hypertension, Osteoarthritis (OA), Thyroid Disorder Additional Past Medical History / Comment(s): HX DVT 2008., chronic UTI's, varicose veins, constipation, hx "ischemic colitis" 2010, skin cancer, SPINAL STENOSIS, NT left LEG/FOOT- USES WALKER., collapsed tendon left foot., ?duode nal ulcer, episode of a-fib after knee replacement in May.-has been on xarelto since, recent adm. for rectal bldg. related to hemorrhoids History of Any Multi-Drug Resistant Organisms: None Reported Past Surgical History: Bladder Surgery, Cholecystectomy, Hysterectomy, Joint Replacement, Orthopedic Surgery Additional Past Surgical History / Comment(s): Parathyroidectomy, Bladder suspension, smita and screws right femur. Cortisone injection, pain clinic procedures. rt hip replacement, rt knee replacement 06/2021, lakisha cataracts., left knee replaced 2021, colonoscopy recently Past Anesthesia/Blood Transfusion Reactions: No Reported Reaction Past Psychological History: Depression Smoking Status: Never smoker - Past Family History Father Family Medical History: Cancer Additional Family Medical History / Comment(s): LUNG CANCER Mother Family Medical History: Cancer Additional Family Medical History / Comment(s): Breast Cancer. Medications and Allergies Home Medications Medication Instructions Recorded Confirmed Type Metoprolol Tartrate [Lopressor] 25 mg PO BID 09/08/18 03/24/25 History hydroCHLOROthiazide 25 mg PO DAILY 03/21/19 03/24/25 History DULoxetine HCL [Cymbalta] 60 mg PO DAILY 11/19/20 03/24/25 History Pravastatin Sodium [Pravachol] 20 mg PO HS 01/10/21 03/24/25 History Losartan Potassium [Cozaar] 100 mg PO DAILY 06/25/21 03/24/25 History busPIRone HCL 10 mg PO Q12H 05/30/22 03/24/25 History DULoxetine HCL [Cymbalta] 30 mg PO DAILY 08/08/22 03/24/25 History Levothyroxine Sodium [Synthroid] 112 mcg PO DAILY 08/08/22 03/24/25 History Pantoprazole [Protonix] 40 mg PO DAILY 08/08/22 03/24/25 History Clobetasol Propionate [Clobex 1 applic TOPICAL HS PRN 03/24/25 03/24/25 History 0.05% Soln] Ketoconazole 2% Shampoo [Nizoral] 1 applic TOPICAL Q3D PRN 03/24/25 03/24/25 History Ramelteon [Rozerem] 8 mg PO HS PRN 03/24/25 03/24/25 History Rivaroxaban [Xarelto] 20 mg PO DAILY 03/24/25 03/24/25 History fluocinolone acetonide oiL 2 - 3 drops BOTH EARS BID PRN 03/24/25 03/24/25 History [Dermotic] Allergies Allergy/AdvReac Type Severity Reaction Status Date / Time Sulfa (Sulfonamide Allergy Rash/Hives Verified 03/24/25 08:33 Antibiotics) Surgical - Exam Vital Signs Temp Pulse Resp BP Pulse Ox 97.7 F 80 17 138/83 96 03/23/25 23:49 03/23/25 23:49 03/23/25 23:49 03/23/25 23:49 03/23/25 23:49 Results - Labs 03/24/25 00:28 03/24/25 00:28 Abnormal Lab Results - Last 24 Hours (Table) 03/24/25 03/24/25 Range/Units 00:28 03:24 BUN 34 H (7-17) mg/dL Glucose 128 H (74-99) mg/dL Urine Appearance Cloudy H (Clear) Urine Nitrite Positive H (Negative) Ur Leukocyte Esterase Large H (Negative) Urine WBC 74 H (0-5) /hpf Urine WBC Clumps Occasional H (None) /hpf Ur Squamous Epith Cells 5 H (0-4) /hpf Urine Bacteria Moderate H (None) /hpf Hyaline Casts 5 H (0-2) /lpf Urine Mucus Rare H (None) /hpf Diabetes panel 03/24/25 Range/Units 00:28 Sodium 140 (137-145) mmol/L Potassium 4.0 (3.5-5.1) mmol/L Chloride 104 (98-107) mmol/L Carbon Dioxide 26 (22-30) mmol/L BUN 34 H (7-17) mg/dL Creatinine 0.86 (0.52-1.04) mg/dL Glucose 128 H (74-99) mg/dL Calcium 9.8 (8.4-10.2) mg/dL AST 23 (14-36) U/L ALT 11 (4-34) U/L Alkaline Phosphatase 71 (38-126) U/L Total Protein 7.5 (6.3-8.2) g/dL Albumin 4.3 (3.5-5.0) g/dL Calcium panel 03/24/25 Range/Units 00:28 Calcium 9.8 (8.4-10.2) mg/dL Albumin 4.3 (3.5-5.0) g/dL Pituitary panel 03/24/25 Range/Units 00:28 Sodium 140 (137-145) mmol/L Potassium 4.0 (3.5-5.1) mmol/L Chloride 104 (98-107) mmol/L Carbon Dioxide 26 (22-30) mmol/L BUN 34 H (7-17) mg/dL Creatinine 0.86 (0.52-1.04) mg/dL Glucose 128 H (74-99) mg/dL Calcium 9.8 (8.4-10.2) mg/dL Adrenal panel 03/24/25 Range/Units 00:28 Sodium 140 (137-145) mmol/L Potassium 4.0 (3.5-5.1) mmol/L Chloride 104 (98-107) mmol/L Carbon Dioxide 26 (22-30) mmol/L BUN 34 H (7-17) mg/dL Creatinine 0.86 (0.52-1.04) mg/dL Glucose 128 H (74-99) mg/dL Calcium 9.8 (8.4-10.2) mg/dL Total Bilirubin 0.6 (0.2-1.3) mg/dL AST 23 (14-36) U/L ALT 11 (4-34) U/L Alkaline Phosphatase 71 (38-126) U/L Total Protein 7.5 (6.3-8.2) g/dL Albumin 4.3 (3.5-5.0) g/dL
[2025-03-24] MEDS: ACETAMINOPHEN IV (For NPO) 1,000 MG in EMPTY BAG 1 BAG IVPB SCH (12:59)
[2025-03-24] MEDS ORDERED: TEMAZEPAM 15 MG CAP PO PRN (13:21)
[2025-03-24] MEDS: busPIRone HCl 10 MG TAB PO SCH (14:06)
[2025-03-24] MEDS: PIPERACILLIN-TAZOBACTAM 3.375 GM in SODIUM CHLORIDE 0.9% 100 ML IVPB SCH (14:06)
[2025-03-24] MEDS: HYDROmorphone 1 MG/ML 1 ML SYRINGE IVP PRN (14:29)
--- NOTE | 2025-03-24 15:01 | P.CONS ---
History of Present Illness - Reason for Consult Consult date: 03/24/25 Medical management Requesting physician: Satnam Vazquez - Chief Complaint Abdominal pain - History of Present Illness Patient is a 85 year old female with atrial fibrillation, DVT, hyperlipidemia, hypertension, osteoarthritis, hypothyroidism, cholecystectomy, hysterectomy, bladder surgery presented to the ED with abdominal pain. Patient reports having constipation chronically. She reports worsening of her symptoms in the past 2 weeks. She has tried using Metamucil, stool softeners, laxatives and also changed her diet but these have not helped with her symptoms. Yesterday afternoon she started to experience cramping abdominal pain in the entire abdomen. Then it moved to the right lower quadrant. Denies fever, shortness of breath, cough, chest pain, palpitations, vomiting, hematuria, dysuria, hematochezia, melena, headache, slurred speech, numbness, tingling, dizziness, lightheadedness, blurred vision, double vision. ED documentation reviewed. In the ED patient was treated with Pepcid, Dilaudid, Tylenol, Zofran, vancomycin, Zosyn. Vitals on admission T 97.7 F, IN 80 bpm, RR 17, BP 138/73, SpO2 96% on room air EKG independently interpreted as sinus rhythm, rate 73 bpm, QTc 412 ms Ab[address]en and pelvis CT shows positive for acute appendicitis, consisting of distended appendix measuring up to 12 mm with mild surrounding inflammation Labs on admission show WBC 9.68, hemoglobin 12.9, platelet 271, INR 1.0, sodium 140, potassium 4.0, BUN 34, creatinine 0.86, glucose 128, amylase 67, lipase 105, total bilirubin 0.6 UA shows cloudy appearance, positive nitrites, large leukocyte esterase, 74 WBC, occasional WBC clumps, 5 squamous epithelial cells, moderate bacteria, 5 hyaline casts, rare mucus Review of systems: Pertinent positives and negatives as discussed in HPI, a complete review of systems was performed and all other systems are negative. Physical examination: Vital signs reviewed General: nontoxic, no distress, appears at stated age Derm: warm, dry, intact Head: atraumatic, normocephalic, symmetric Eyes: EOMI, anicteric sclera Mouth: no lip lesion, mucus membranes moist Cardiovascular: S1 S2 reg, no murmur Lungs: CTA bilateral, no rhonchi, no rales, no accessory muscle use Abdominal: right lower quadrant tenderness Extremities: edema on b/l LE Neuro: Alert, Oriented, Gross neurological examination did not reveal any focal deficits. Psych: well appearing, appropriate affect Assessment/Plan: Patient is a 85 year old female with atrial fibrillation, DVT, hyperlipidemia, hypertension, osteoarthritis, hypothyroidism, cholecystectomy, hysterectomy presented to the ED with abdominal pain. #. Paroxysmal Atrial fibrillation, on anticoagulation [id number] score 4 Continue metoprolol 25 mg p.o. twice daily Xarelto held for surgery #. Hyperlipidemia Continue Pravastatin 20 mg PO HS #. Hypertension Continue losartan 100 mg p.o. daily #. Hypothyroidism Continue levothyroxine 112 mcg p.o. daily #. GERD On Pepcid 20 mg IV daily #. Anxiety/depression Continue buspirone 10 mg p.o. every 12 hours, duloxetine 90 mg p.o. daily #. Insomnia Continue ramelteon 8 mg p.o. at bedtime #. Asymptomatic bacteriuria UA shows cloudy appearance, positive nitrites, large leukocyte esterase, 74 WBC, occasional WBC clumps, 5 squamous epithelial cells, moderate bacteria, 5 hyaline casts, rare mucus Patient denies any UTI symptoms Currently on Zosyn for appendicitis #. Acute appendicitis Abdomen and pelvis CT shows positive for acute appendicitis, consisting of distended appendix measuring up to 12 mm with mild surrounding inflammation Currently on Zosyn IVPB every 8 hours Tylenol and Dilaudid as needed for pain management per primary surgical team Zofran as needed for nausea and vomiting Continue IV fluids Patient needs to be off anticoagulation for at least 48 hours prior to surgical intervention Patient is scheduled for laparoscopic appendectomy tomorrow DVT prophylaxis: Hold anticoagulants for surgery tomorrow GI prophylaxis: Famotidine 20 mg IV daily CODE STATUS: FULL CODE Thank you for the consult. Please feel free to reach out in case of any questions. Dictation was produced using [employer] dictation software. please excuse any grammatical, word or spelling errors. Ranjana Lynne MD PGY-1 IM I saw and evaluated the patient during the moss and critical portions of this encounter, and discussed the case in detail with the resident author of this note, I agree with the Assessment and Plan, and my changes, if any, are highlighted in blue. Past Medical History Past Medical History: Atrial Fibrillation, Cancer, Deep Vein Thrombosis (DVT), Hyperlipidemia, Hypertension, Osteoarthritis (OA), Thyroid Disorder Additional Past Medical History / Comment(s): HX DVT 2008., chronic UTI's, varicose veins, constipation, hx "ischemic colitis" 2010, skin cancer, SPINAL STENOSIS, NT left LEG/FOOT- USES WALKER., collapsed tendon left foot., ?duodenal ulcer, episode of a-fib after knee replacement in -has been on xarelto since, recent adm. for rectal bldg. related to hemorrhoids History of Any Multi-Drug Resistant Organisms: None Reported Past Surgical History: Bladder Surgery, Cholecystectomy, Hysterectomy, Joint Replacement, Orthopedic Surgery Additional Past Surgical History / Comment(s): Parathyroidectomy, Bladder suspension, smita and screws right femur. Cortisone injection, pain clinic procedures. rt hip replacement, rt knee replacement 06/2021, lakisha cataracts., left knee replaced 2021, colonoscopy recently Past Anesthesia/Blood Transfusion Reactions: No Reported Reaction Past Psychological History: Depression Smoking Status: Never smoker - Past Family History Father Family Medical History: Cancer Additional Family Medical History / Comment(s): LUNG CANCER Mother Family Medical History: Cancer Additional Family Medical History / Comment(s): Breast Cancer. Medications and Allergies Home Medications Medication Instructions Recorded Confirmed Type Metoprolol Tartrate [Lopressor] 25 mg PO BID 09/08/18 03/24/25 History hydroCHLOROthiazide 25 mg PO DAILY 03/21/19 03/24/25 History DULoxetine HCL [Cymbalta] 60 mg PO DAILY 11/19/20 03/24/25 History Pravastatin Sodium [Pravachol] 20 mg PO HS 01/10/21 03/24/25 History Losartan Potassium [Cozaar] 100 mg PO DAILY 06/25/21 03/24/25 History busPIRone HCL 10 mg PO Q12H 05/30/22 03/24/25 History DULoxetine HCL [Cymbalta] 30 mg PO DAILY 08/08/22 03/24/25 History Levothyroxine Sodium [Synthroid] 112 mcg PO DAILY 08/08/22 03/24/25 History Pantoprazole [Protonix] 40 mg PO DAILY 08/08/22 03/24/25 History Clobetasol Propionate [Clobex 1 applic TOPICAL HS PRN 03/24/25 03/24/25 History 0.05% Soln] Ketoconazole 2% Shampoo [Nizoral] 1 applic TOPICAL Q3D PRN 03/24/25 03/24/25 History Ramelteon [Rozerem] 8 mg PO HS PRN 03/24/25 03/24/25 History Rivaroxaban [Xarelto] 20 mg PO DAILY 03/24/25 03/24/25 History fluocinolone acetonide oiL 2 - 3 drops BOTH EARS BID PRN 03/24/25 03/24/25 History [Dermotic] Allergies Allergy/AdvReac Type Severity Reaction Status Date / Time Sulfa (Sulfonamide Allergy Rash/Hives Verified 03/24/25 08:33 Antibiotics) Physical Exam Osteopathic Statement: *. No significant issues noted on an osteopathic structural exam other than those noted in the History and Physical/Consult. Vitals: Vital Signs Temp Pulse Resp BP Pulse Ox 03/24/25 09:47 81 20 162/67 98 03/24/25 05:58 73 18 153/95 96 03/24/25 02:10 97.3 F L 73 19 166/63 100 03/23/25 23:49 97.7 F 80 17 138/83 96 Intake and Output 03/23/25 03/24/25 03/24/25 22:59 06:59 14:59 Other: Weight 92.986 kg Results CBC & Chem 7: 03/24/25 00:28 03/24/25 00:28 Labs: Abnormal Lab Results - Last 24 Hours (Table) 03/24/25 03/24/25 Range/Units 00:28 03:24 BUN 34 H (7-17) mg/dL Glucose 128 H (74-99) mg/dL Urine Appearance Cloudy H (Clear) Urine Nitrite Positive H (Negative) Ur Leukocyte Esterase Large H (Negative) Urine WBC 74 H (0-5) /hpf Urine WBC Clumps Occasional H (None) /hpf Ur Squamous Epith Cells 5 H (0-4) /hpf Urine Bacteria Moderate H (None) /hpf Hyaline Casts 5 H (0-2) /lpf Urine Mucus Rare H (None) /hpf
[2025-03-24] MEDS: KETOROLAC 15 MG/ML 1 ML VIAL IVP SCH (17:06)
[2025-03-24] MEDS: PRAVASTATIN SODIUM 20 MG TAB PO SCH (21:42)
[2025-03-24] MEDS: METOPROLOL TARTRATE 25 MG TAB PO SCH (21:42)
[2025-03-25 06:26] LABS: Basophils # (A) 0.05 10*3/uL (0.00-0.10); Basophils % (A) 0.3 %; Eosinophils # (A) 0.03 10*3/uL (0.04-0.35); Eosinophils % (A) 0.2 %; HCT 37.2 % (37.2-46.3); HGB 11.9 g/dL (12.0-15.0); Lymphocytes # (A) 0.77 10*3/uL (0.90-5.00); Lymphocytes % (A) 4.3 %; MCH 29.9 pg (27.0-32.0); MCV 93.5 fL (80.0-97.0); Mean Platelet Volume 9.8 fL (9.5-12.2); Monocytes # (A) 1.31 10*3/uL (0.20-1.00); Monocytes % (A) 7.4 %; Neutrophils # (A) 15.49 10*3/uL (1.80-7.70); Neutrophils % (A) 86.9 %; Platelet Count 232 10*3/uL (140-440); RBC 3.98 10*6/uL (4.10-5.20); RDW 14.3 % (11.5-14.5); WBC 17.81 10*3/uL (4.50-10.00)
[2025-03-25 06:41] LABS: African American GFR (CKD) 44 (>60 ml/min/1.73 sqM); Anion Gap 11 mmol/L; Blood Urea Nitrogen 28 mg/dL (7-17); Calcium 8.8 mg/dL (8.4-10.2); Carbon Dioxide 22 mmol/L (22-30); Chloride 106 mmol/L (98-107); Glucose 87 mg/dL (74-99); Non-African American GFR(CKD) 38 (>60 ml/min/1.73 sqM); Potassium 3.6 mmol/L (3.5-5.1); Sodium 139 mmol/L (137-145)
[2025-03-25] MEDS: LEVOTHYROXINE 112 MCG TAB PO SCH (06:42)
[2025-03-25] MEDS ORDERED: fentaNYL (PF) 50 MCG/ML 2 ML AMP ONE (08:00)
[2025-03-25] MEDS ORDERED: NEOSTIGMINE 1 MG/ML 10 ML VIAL ONE (08:00)
[2025-03-25] MEDS ORDERED: ROCURONIUM 10 MG/ML (5 ML VIAL) IV ONE (08:00)
[2025-03-25] MEDS ORDERED: PHENYLEPHRINE-0.9% NACL SYG 1,000 MCG/10 ML SYRINGE ONE (08:00)
[2025-03-25] MEDS ORDERED: SUCCINYLCHOLINE CHLORIDE 200 MG/10 ML VIAL IV ONE (08:00)
[2025-03-25] MEDS ORDERED: GLYCOPYRROLATE 0.2 MG/ML 2 ML VIAL ONE (08:00)
[2025-03-25] MEDS ORDERED: LIDOCAINE 1% INJ 10MG/ML (20 ML MDV) ONE (08:00)
[2025-03-25] MEDS ORDERED: PROPOFOL 10 MG/ML 20 ML VIAL IV ONE (08:00)
[2025-03-25] MEDS: IV FLUID CONTINUATION 1,000 ML IV ONE (08:04)
[2025-03-25] MEDS: LIDOCAINE 1%-EPI 1:100,000 20 ML VIAL SQ ONE ×2 (08:16→08:20)
--- NOTE | 2025-03-25 08:48 | P.OP ---
Date of Procedure: 03/25/25 Preoperative Diagnosis: Appendicitis Postoperative Diagnosis: Appendicitis Procedure(s) Performed: Laparoscopic appendectomy Anesthesia: KHALIF Surgeon: Andres Hope Estimated Blood Loss (ml): 5 Pathology: other (Appendix) Condition: stable Disposition: PACU Operative Findings: Obliterated distal half appendix Description of Procedure: H the patient's placed on the operating table in the supine position. The patient received general anesthesia. The abdomen was prepped and draped in the usual sterile fashion. The skin was anesthetized 1% local Xylocaine at the trocar sites. Using an 11 blade the skin was incised at the umbilicus. The umbilicus was grasped with a [place] clamp and then a Veress needle was placed into the peritoneal cavity. Position of the Veress needle was confirmed with positive drop test. After adequate insufflation a 5 mm trocar was placed into the peritoneal cavity. The abdomen was further insufflated. And then the laparoscope was placed in the peritoneal cavity. Next a 5 mm trocar was placed in the midline suprapubic position. And then a 10 mm trocar was placed in the midline epigastric position. The patient was rotated with the right side up and in Trendelenburg. The appendix was visualized. The appendix appeared to be inflamed. The distal half the appendix was obliterated. The appendix was grasped and then using the Harmonic scissors the mesoappendix was divided. A PDS Endoloop was then placed around the base of the appendix. And then the appendix was divided using Harmonic scissors. The appendix was placed into an Endo Catch and brought out through the 10 mm trocar site. The abdomen was irrigated. There is no bleeding seen. The trochars withdrawn. The skin was closed interrupted 3-0 Monocryl suture. Dermabond dressing was applied. Patient was sent to recovery room in stable condition.
[2025-03-25] MEDS ORDERED: PANTOPRAZOLE 40 MG TABLET PO SCH (09:00)
[2025-03-25] MEDS: LOSARTAN 50 MG TAB PO SCH (10:54)
[2025-03-25] MEDS: FAMOTIDINE 20 MG/2 ML VIAL IV SCH (10:55)
[2025-03-25] MEDS: DULoxetine HCL 60 MG CAPSULE.DR PO SCH (10:56)
[2025-03-25] MEDS: DULoxetine HCL 30 MG CAPSULE.DR PO SCH (10:56)
[2025-03-25] MEDS: POTASSIUM CHLORIDE ER 20 MEQ TAB.ER PO STA (13:09)
--- NOTE | 2025-03-25 14:25 | P.PN ---
Subjective Progress Note Date: 03/25/25 Principal diagnosis: Hospital course: Patient is a 85 year old female with atrial fibrillation, DVT, hyperlipidemia, hypertension, osteoarthritis, hypothyroidism, cholecystectomy, hysterectomy, bladder surgery presented to the ED with abdominal pain. Patient reports having constipation chronically. She reports worsening of her symptoms in the past 2 w eeks. She has tried using Metamucil, stool softeners, laxatives and also changed her diet but these have not helped with her symptoms. Yesterday afternoon she started to experience cramping abdominal pain in the entire abdomen. Then it moved to the right lower quadrant. Denies fever, shortness of breath, cough, chest pain, palpitations, vomiting, hematuria, dysuria, hematochezia, melena, headache, slurred speech, numbness, tingling, dizziness, lightheadedness, blurred vision, double vision. ED documentation reviewed. In the ED patient was treated with Pepcid, Dilaudid, Tylenol, Zofran, vancomycin, Zosyn. 03/25/25: Patient is seen and examined at bedside today. She underwent surgery today. Has not had a bowel movement after the surgery or passed flatus. She reports her last bowel movement was on . Review of systems: Pertinent positives and negatives as discussed in HPI, a complete review of systems was performed and all other systems are negative. Vitals: Signs Reviewed Physical examination: General: nontoxic, no distress, appears at stated age Derm: warm, dry, intact Head: atraumatic, normocephalic, symmetric Eyes: EOMI, anicteric sclera Mouth: no lip lesion, mucus membranes moist Cardiovascular: S1 S2 reg, no murmur Lungs: CTA bilateral, no rhonchi, no rales, no accessory muscle use Abdominal: right lower quadrant tenderness Extremities: edema on b/l LE Neuro: Alert, Oriented, Gross neurological examination did not reveal any focal deficits. Psych: well appearing, appropriate affect Data Reviewed Today: Labs: WBC 17.81, hemoglobin 11.9, BUN 28, creatinine 1.29 Imaging: No new imaging Assessment/Plan: Patient is a 85 year old female with atrial fibrillation, DVT, hyperlipidemia, hypertension, osteoarthritis, hypothyroidism, cholecystectomy, hysterectomy presented to the ED with abdominal pain. Patient underwent laparoscopic appendectomy today. #. Hypokalemia K 3.6 Potassium chloride 40 meq PO once Monitor BMP #. LILLIAN, likely medication induced vs contrast induced Creatinine 1.29 today, 0.86 on admission Continue IV fluids Hold Losartan Monitor BMP #. Paroxysmal Atrial fibrillation, on anticoagulation [id number] score 4 Continue metoprolol 25 mg p.o. twice daily Xarelto held for surgery #. Hyperlipidemia Continue Pravastatin 20 mg PO HS #. Hypertension Continue losartan 100 mg p.o. daily #. Hypothyroidism Continue levothyroxine 112 mcg p.o. daily #. GERD On Pepcid 20 mg IV daily #. Anxiety/depression Continue buspirone 10 mg p.o. every 12 hours, duloxetine 90 mg p.o. daily #. Insomnia Continue ramelteon 8 mg p.o. at bedtime #. Asymptomatic bacteriuria UA shows cloudy appearance, positive nitrites, large leukocyte esterase, 74 WBC, occasional WBC clumps, 5 squamous epithelial cells, moderate bacteria, 5 hyaline casts, rare mucus Patient denies any UTI symptoms Currently on Zosyn for appendicitis #. Acute appendicitis #. S/p Laparoscopic appendectomy Abdomen and pelvis CT shows positive for acute appendicitis, consisting of distended appendix measuring up to 12 mm with mild surrounding inflammation Currently on Zosyn IVPB every 8 hours Tylenol, Toradol, Dilaudid as needed for pain management per primary surgical team Zofran as needed for nausea and vomiting Continue IV fluids Patient needs to be off anticoagulation for at least 48 hours prior to surgical intervention DVT prophylaxis: Anticoagulants held for surgery GI prophylaxis: Famotidine 20 mg IV daily CODE STATUS: FULL CODE Dictation was produced using [employer] dictation software. please excuse any grammatical, word or spelling errors. Ranjana Lynne MD PGY-1 IM I saw and evaluated the patient during the moss and critical portions of this encounter, and discussed the case in detail with the resident author of this note, I agree with the Assessment and Plan, and my changes, if any, are highlighted in blue. Objective - Vital Signs Vital signs: Vital Signs Temp 99.1 F 03/25/25 00:14 Pulse 74 03/25/25 00:14 Resp 17 03/25/25 00:14 BP 111/58 03/25/25 00:14 Pulse Ox 90 L 03/25/25 00:14 FiO2 Intake & Output 06/13/25 06/14/25 06/14/25 18:59 06:59 18:59 Weight 92.986 kg Other: Voiding Method External Catheter # Voids 1 1 - Labs CBC & Chem 7: 03/25/25 05:50 03/25/25 05:50 Labs: Abnormal Lab Results - Last 24 Hours (Table) 03/25/25 03/25/25 Range/Units 05:50 05:50 WBC 17.81 H (4.50-10.00) 10*3/uL RBC 3.98 L (4.10-5.20) 10*6/uL Hgb 11.9 L (12.0-15.0) g/dL Immature Gran # 0.16 H (0.00-0.04) 10*3/uL Neutrophils # 15.49 H (1.80-7.70) 10*3/uL Lymphocytes # 0.77 L (0.90-5.00) 10*3/uL Monocytes # 1.31 H (0.20-1.00) 10*3/uL Eosinophils # 0.03 L (0.04-0.35) 10*3/uL BUN 28 H (7-17) mg/dL Creatinine 1.29 H (0.52-1.04) mg/dL
[2025-03-26 08:41] LABS: MCH 29.7 pg (27.0-32.0); MCHC 31.4 g/dL (32.0-37.0); MCV 94.6 fL (80.0-97.0); Platelet Count 224 10*3/uL (140-440); RBC 2.96 10*6/uL (4.10-5.20); RDW 14.5 % (11.5-14.5); WBC 15.98 10*3/uL (4.50-10.00)
[2025-03-26 08:51] LABS: HGB 8.8 g/dL (12.0-15.0)
[2025-03-26 08:59] LABS: African American GFR (CKD) 23 (>60 ml/min/1.73 sqM); Anion Gap 10 mmol/L; Blood Urea Nitrogen 48 mg/dL (7-17); Calcium 7.7 mg/dL (8.4-10.2); Carbon Dioxide 19 mmol/L (22-30); Chloride 110 mmol/L (98-107); Glucose 128 mg/dL (74-99); Non-African American GFR(CKD) 20 (>60 ml/min/1.73 sqM); Potassium 4.2 mmol/L (3.5-5.1); Sodium 139 mmol/L (137-145)
--- NOTE | 2025-03-26 09:42 | P.PN ---
Subjective Progress Note Date: 03/26/25 The patient has some complaints of incisional pain. She had low urine output overnight. On exam vital signs appear stable. Abdomen is soft. Incision sites are clean dry intact. Status post laparoscopic appendectomy for acute appendicitis. Patient will receive a liter bolus of lactated Ringer's. She will continue to be observed. Objective - Vital Signs Vital signs: Vital Signs Temp 97.5 F L 03/26/25 07:55 Pulse 88 03/26/25 07:55 Resp 18 03/26/25 07:55 BP 101/61 03/26/25 07:55 Pulse Ox 95 03/26/25 08:55 FiO2 Intake & Output 03/25/25 03/26/25 03/26/25 18:59 06:59 18:59 Intake Total 500 Output Total 399 350 Balance 101 -350 Intake: IV 500 Output: Urine 350 Straight 350 Post Void Residual 389 Estimated Blood Loss 10 Other: Voiding Method External Catheter # Voids 0 # Bowel Movements 0 - Labs CBC & Chem 7: 03/26/25 08:04 03/26/25 08:04 Labs: Abnormal Lab Results - Last 24 Hours (Table) 03/26/25 03/26/25 Range/Units 08:04 08:04 WBC 15.98 H (4.50-10.00) 10*3/uL RBC 2.96 L (4.10-5.20) 10*6/uL Hgb 8.8 L D (12.0-15.0) g/dL Hct 28.0 L (37.2-46.3) % MCHC 31.4 L (32.0-37.0) g/dL Chloride 110 H (98-107) mmol/L Carbon Dioxide 19 L (22-30) mmol/L BUN 48 H (7-17) mg/dL Creatinine 2.19 H (0.52-1.04) mg/dL Glucose 128 H (74-99) mg/dL Calcium 7.7 L (8.4-10.2) mg/dL Microbiology - Last 24 Hours (Table) 03/24/25 05:50 Blood Culture - Preliminary Blood 03/24/25 03:24 Urine Culture - Preliminary Urine,Voided Gram Neg Bacilli
[2025-03-26] MEDS: LACTATED RINGERS 1,000 ML IV ONE ×2 (12:14→14:52)
--- NOTE | 2025-03-26 14:38 | P.PN ---
Subjective Progress Note Date: 03/26/25 Principal diagnosis: Hospital course: Patient is a 85 year old female with atrial fibrillation, DVT, hyperlipidemia, hypertension, osteoarthritis, hypothyroidism, cholecystectomy, hysterectomy, bladder surgery presented to the ED with abdominal pain. Patient reports having constipation chronically. She reports worsening of her symptoms in the past 2 w eeks. She has tried using Metamucil, stool softeners, laxatives and also changed her diet but these have not helped with her symptoms. Yesterday afternoon she started to experience cramping abdominal pain in the entire abdomen. Then it moved to the right lower quadrant. Denies fever, shortness of breath, cough, chest pain, palpitations, vomiting, hematuria, dysuria, hematochezia, melena, headache, slurred speech, numbness, tingling, dizziness, lightheadedness, blurred vision, double vision. ED documentation reviewed. In the ED patient was treated with Pepcid, Dilaudid, Tylenol, Zofran, vancomycin, Zosyn. 03/25/25: Patient is seen and examined at bedside today. She underwent surgery today. Has not had a bowel movement after the surgery or passed flatus. She reports her last bowel movement was on . 03/26/25: Pt c/o dyspnea, low UOP, constipation today. Has required straight cath overnight. Review of systems: Pertinent positives and negatives as discussed in HPI, a complete review of systems was performed and all other systems are negative. Vitals: Signs Reviewed Physical examination: Gen: In NAD, non-toxic HEENT: normocephalic, atraumatic, hearing acuity is intant, mucous membranes moist CVS: perfusing all extremities well, no pitting edema, Respiratory: symmetric chest expansion, no accessory muscle use, GI: soft, NTTP, ND, : no suprapubic tenderness, no CVA tenderness MSK/Derm: no rashes, cyanosis Neuro: CN II-XII intact, no motor weakness, Psych: cooperative, euthymic mood, judgment and insight is intact Data Reviewed Today: Assessment/Plan: Patient is a 85 year old female with atrial fibrillation, DVT, hyperlipidemia, hypertension, osteoarthritis, hypothyroidism, cholecystectomy, hysterectomy presented to the ED with abdominal pain. Patient underwent laparoscopic appendectomy today. Acute hypoxemic respiratory failure - Encourage incentive spirometry - Chest x-ray today was reviewed, appears to have low right-sided lung volume, atelectasis #. Hypokalemia Monitor BMP #. LILLIAN, likely medication induced vs contrast induced Creatinine 1.29 today, 0.86 on admission Continue IV fluids, received 1000 cc lactated ringer bolus today, remains on 125 cc/h of normal saline Hold Losartan Monitor BMP #. Paroxysmal Atrial fibrillation, on anticoagulation Acute blood loss anemia [id number] score 4 Continue metoprolol 25 mg p.o. twice daily Xarelto held for surgery Continue to hold Xarelto for now, initiate ferrous sulfate daily #. Hyperlipidemia Continue Pravastatin 20 mg PO HS #. Hypertension Continue losartan 100 mg p.o. daily #. Hypothyroidism Continue levothyroxine 112 mcg p.o. daily #. GERD On Pepcid 20 mg IV daily #. Anxiety/depression Continue buspirone 10 mg p.o. every 12 hours, duloxetine 90 mg p.o. daily #. Insomnia Continue ramelteon 8 mg p.o. at bedtime #. Asymptomatic bacteriuria UA shows cloudy appearance, positive nitrites, large leukocyte esterase, 74 WBC, occasional WBC clumps, 5 squamous epithelial cells, moderate bacteria, 5 hyaline casts, rare mucus Patient denies any UTI symptoms Currently on Zosyn for appendicitis #. Acute appendicitis #. S/p Laparoscopic appendectomy Abdomen and pelvis CT shows positive for acute appendicitis, consisting of distended appendix measuring up to 12 mm with mild surrounding inflammation Currently on Zosyn IVPB every 8 hours Tylenol, Toradol, Dilaudid as needed for pain management per primary surgical team Zofran as needed for nausea and vomiting Continue IV fluids Patient needs to be off anticoagulation for at least 48 hours prior to surgical intervention DVT prophylaxis: Anticoagulants held for surgery GI prophylaxis: Famotidine 20 mg IV daily CODE STATUS: FULL CODE Dictation was produced using [employer] dictation software. please excuse any grammatical, word or spelling errors. Objective - Vital Signs Vital signs: Vital Signs Temp 97.5 F L 03/26/25 07:55 Pulse 88 03/26/25 07:55 Resp 18 03/26/25 07:55 BP 101/61 03/26/25 07:55 Pulse Ox 92 L 03/26/25 12:13 FiO2 Intake & Output 03/25/25 03/26/25 03/26/25 18:59 06:59 18:59 Intake Total 500 Output Total 399 350 Balance 101 -350 Intake: IV 500 Output: Urine 350 Straight 350 Post Void Residual 389 Estimated Blood Loss 10 Other: Voiding Method External Catheter # Voids 0 # Bowel Movements 0 - Labs CBC & Chem 7: 03/26/25 08:04 03/26/25 08:04 Labs: Abnormal Lab Results - Last 24 Hours (Table) 03/26/25 03/26/25 Range/Units 08:04 08:04 WBC 15.98 H (4.50-10.00) 10*3/uL RBC 2.96 L (4.10-5.20) 10*6/uL Hgb 8.8 L D (12.0-15.0) g/dL Hct 28.0 L (37.2-46.3) % MCHC 31.4 L (32.0-37.0) g/dL Chloride 110 H (98-107) mmol/L Carbon Dioxide 19 L (22-30) mmol/L BUN 48 H (7-17) mg/dL Creatinine 2.19 H (0.52-1.04) mg/dL Glucose 128 H (74-99) mg/dL Calcium 7.7 L (8.4-10.2) mg/dL Microbiology - Last 24 Hours (Table) 03/24/25 03:24 Urine Culture - Final Urine,Voided Escherichia coli 03/24/25 05:50 Blood Culture - Preliminary Blood
--- NOTE | 2025-03-26 14:38 | XR ---
EXAMINATION TYPE: XR chest 1V portable DATE OF EXAM: 03/26/2025 2:27 PM COMPARISON: Chest radiographs from 12/10/2023. CLINICAL INDICATION: Female, 85 years old with history of hypoxia; TECHNIQUE: XR chest 1V portable Frontal view of the chest. FINDINGS: Lungs/Pleura: Low lung volumes are present. There is no evidence of pleural effusion, focal consolida tion, or pneumothorax. Pulmonary vascularity: Unremarkable. Heart/mediastinum: Cardiomediastinal silhouette is unremarkable. Musculoskeletal: No acute osseous pathology. IMPRESSION: Low lung volumes with a generalized hazy appearance which could represent atelectasis versus pulmonar y edema correlate with serum BNP. [facility], , 03/26/2025 2:36 PM
[2025-03-26] MEDS: NA PHOS,M-B/NA PHOS,DI-BA 133 ML ENEMA RECTAL STA (14:50)
[2025-03-26] MEDS: PIPERACILLIN-TAZOBACTAM 3.375 GM in SODIUM CHLORIDE 0.9% 100 ML IVPB SCH (22:52)
[2025-03-27] MEDS: HYDROcodone/APAP 5-325MG 1 EACH TAB PO PRN (09:13)
[2025-03-27 10:14] LABS: Basophils # (A) 0.03 X 10*3/uL (0.00-0.10); Basophils % (A) 0.2 %; Eosinophils # (A) 0.16 X 10*3/uL (0.04-0.35); Eosinophils % (A) 1.2 %; HCT 23.3 % (37.2-46.3); HGB 7.4 g/dL (12.0-15.0); Lymphocytes # (A) 0.97 X 10*3/uL (0.90-5.00); Lymphocytes % (A) 7.1 %; MCH 29.8 pg (27.0-32.0); MCHC 31.8 g/dL (32.0-37.0); Mean Platelet Volume 10.6 FL (9.5-12.2); Monocytes # (A) 0.78 X 10*3/uL (0.20-1.00); Monocytes % (A) 5.7 %; NRBC Per 100 WBC 0 X 10*3/uL (0.00-0.01); Neutrophils % (A) 84.8 %; Platelet Count 217 X 10*3/uL (140-440); RBC 2.48 X 10*6/uL (4.10-5.20); RDW 14.6 % (11.5-14.5); WBC 13.68 X 10*3/uL (4.50-10.00)
[2025-03-27 10:22] LABS: BUN/Creat Ratio 25.58 Ratio (12.00-20.00); Blood Urea Nitrogen 48.6 mg/dL (9.0-27.0); Calcium 7.5 mg/dL (8.7-10.3); Carbon Dioxide 17.4 mmol/L (21.6-31.8); Chloride 113 mmol/L (96-109); Glucose 105 mg/dL (70-110); Magnesium 1.6 mg/dL (1.5-2.4); Potassium 3.9 mmol/L (3.5-5.5); Sodium 143 mmol/L (135-145)
[2025-03-27 10:26] LABS: NT-Pro-B-Type Natriuretic Pept 3852 pg/mL (0-450)
[2025-03-27] MEDS: MAGNESIUM SULFATE-D5W PMX 1 GM in DEXTROSE/WATER 1 100ML.BAG IVPB ONE (11:35)
[2025-03-27] MEDS: FERROUS SULFATE 325 MG TAB PO SCH (11:47)
--- NOTE | 2025-03-27 11:53 | P.PN ---
Subjective Progress Note Date: 03/27/25 SURGICAL PROGRESS NOTE CHIEF COMPLAINT: Appendicitis HISTORY OF PRESENT ILLNESS: Patient is postop day #2 status post laparoscopic appendectomy. She reports having small bowel movements that were loose y esterday. She denies any nausea or vomiting. She is sitting at bedside chair. She does report being weak and did not need assistance to get to chair per nursing staff. Afebrile. WBC is down from 15-13.68 hemoglobin 8.8-7.4 PHYSICAL EXAM: VITAL SIGNS: Reviewed. GENERAL: Well-developed in no acute distress. HEENT: No sclera icterus. Extraocular movements grossly intact. Moist buccal mucosa. Head is atraumatic, normocephalic. ABDOMEN: Nondistended. Tenderness at incision sites with NEUROLOGIC: Alert and oriented. Cranial nerves II through XII grossly intact. ASSESSMENT: 1. Acute appendicitis PLAN: - Oral pain medication, [place] added for pain management - Discontinue Toradol due to elevated creatinine - Consult PT OT to help ambulate patient - consult home health care case manager for possible ECF placement - Continue antibiotics - Continue IV fluids -Encouraged incentive spirometer use -Increase activity level Physician Certified Hyperbaric Technician note has been reviewed by physician. Signing provider agrees with the documented findings, assessment, and plan of care. Objective - Vital Signs Vital signs: Vital Signs Temp 97.8 F 03/27/25 07:11 Pulse 91 03/27/25 07:11 Resp 18 03/27/25 09:15 BP 129/77 03/27/25 07:11 Pulse Ox 97 03/27/25 07:11 FiO2 Intake & Output 03/26/25 03/27/25 03/27/25 18:59 06:59 18:59 Intake Total 180 Output Total 400 600 100 Balance -400 -600 80 Intake: Oral 180 Output: Urine 400 500 100 Straight 200 Post Void Residual 100 Other: # Voids 2 2 - Labs CBC & Chem 7: 03/27/25 07:41 03/27/25 07:41 Labs: Abnormal Lab Results - Last 24 Hours (Table) 03/27/25 03/27/25 Range/Units 07:41 07:41 WBC 13.68 H (4.50-10.00) X 10*3/uL RBC 2.48 L (4.10-5.20) X 10*6/uL Hgb 7.4 L (12.0-15.0) g/dL Hct 23.3 L (37.2-46.3) % MCHC 31.8 L (32.0-37.0) g/dL RDW 14.6 H (11.5-14.5) % Immature Gran # 0.14 H (0.00-0.04) X 10*3/uL Neutrophils # 11.60 H (1.80-7.70) X 10*3/uL Chloride 113 H (96-109) mmol/L Carbon Dioxide 17.4 L (21.6-31.8) mmol/L Anion Gap 12.60 H (4.00-12.00) mmol/L BUN 48.6 H (9.0-27.0) mg/dL Creatinine 1.9 H (0.6-1.5) mg/dL Est GFR (CKD-EPI) 26 L (>=60) BUN/Creatinine Ratio 25.58 H (12.00-20.00) Ratio Calcium 7.5 L (8.7-10.3) mg/dL NT-Pro-B Natriuret Pep 3852 H (0-450) pg/mL Microbiology - Last 24 Hours (Table) 03/24/25 03:24 Urine Culture - Final Urine,Voided Escherichia coli 03/24/25 05:50 Blood Culture - Preliminary Blood
--- NOTE | 2025-03-27 17:58 | P.PN ---
Subjective Progress Note Date: 03/27/25 Hospital course: Patient is a 85 year old female with atrial fibrillation, DVT, hyperlipidemia, hypertension, osteoarthritis, hypothyroidism, cholecystectomy, hysterectomy, bladder surgery presented to the ED with abdominal pain. Patient reports having constipation chronically. She reports worsening of her symptoms in the past 2 weeks. She has tried using Metamucil, stool softeners, laxatives and also changed her diet but these have not helped with her symptoms. Yesterday a fternoon she started to experience cramping abdominal pain in the entire abdomen. Then it moved to the right lower quadrant. Denies fever, shortness of breath, cough, chest pain, palpitations, vomiting, hematuria, dysuria, hematochezia, melena, headache, slurred speech, numbness, tingling, dizziness, lightheadedness, blurred vision, double vision. ED documentation reviewed. In the ED patient was treated with Pepcid, Dilaudid, Tylenol, Zofran, vancomycin, Zosyn. 03/25/25: Patient is seen and examined at bedside today. She underwent surgery today. Has not had a bowel movement after the surgery or passed flatus. She reports her last bowel movement was on . 03/26/25: Pt c/o dyspnea, low UOP, constipation today. Has required straight cath overnight. 03/27/25: Patient seen and examined at bedside. Patient continues to have mild abdominal pain with movement. No other complaints. Review of systems: Pertinent positives and negatives as discussed in HPI, a complete review of systems was performed and all other systems are negative. Vitals: Signs Reviewed PHYSICAL EXAMINATION: Gen: In NAD, non-toxic HEENT: normocephalic, atraumatic, hearing acuity is intant, mucous membranes moist CVS: perfusing all extremities well, no pitting edema, Respiratory: symmetric chest expansion, no accessory muscle use, GI: soft, NTTP, mild generalized tenderness : no suprapubic tenderness, no CVA tenderness MSK/Derm: no rashes, cyanosis Neuro: CN II-XII intact, no motor weakness, Psych: cooperative, euthymic mood, judgment and insight is intact Today significant findings: LabsWBC 13.6, hemoglobin 7.4, bicarb 17.4, BUN 48.6, creatinine 1.9, proBNP 3852 No new imaging Assessment/Plan: Patient is a 85 year old female with atrial fibrillation, DVT, hyperlipidemia, hypertension, osteoarthritis, hypothyroidism, cholecystectomy, hysterectomy presented to the ED with abdominal pain. Patient underwent laparoscopic appendectomy today. #Acute hypoxemic respiratory failure possibly secondary to CHF exacerbation - Encourage incentive spirometry - Chest x-ray today was reviewed, appears to have low right-sided lung volume, atelectasis proBNP 3852, consider echocardiogram if symptoms progressively worsen #. LILLIAN, likely medication induced vs contrast induced, improving Creatinine 1.29 today, 0.86 on admission Continue IV fluids, decrease to 70 Hold Losartan Monitor BMP #. Paroxysmal Atrial fibrillation, on anticoagulation #Acute blood loss anemia [id number] score 4 Continue metoprolol 25 mg p.o. twice daily Xarelto held for surgery Continue to hold Xarelto for now, initiate ferrous sulfate daily Hemoglobin 7.4, plan PRBC if less than 7 #. Hyperlipidemia Continue Pravastatin 20 mg PO HS #. Hypertension Continue losartan 100 mg p.o. daily #. Hypokalemia Monitor BMP #. Hypothyroidism Continue levothyroxine 112 mcg p.o. daily #. GERD On Pepcid 20 mg IV daily #. Anxiety/depression Continue buspirone 10 mg p.o. every 12 hours, duloxetine 90 mg p.o. daily #. Insomnia Continue ramelteon 8 mg p.o. at bedtime #. Asymptomatic bacteriuria UA shows cloudy appearance, positive nitrites, large leukocyte esterase, 74 WBC, occasional WBC clumps, 5 squamous epithelial cells, moderate bacteria, 5 hyaline casts, rare mucus Patient denies any UTI symptoms Currently on Zosyn for appendicitis #. Acute appendicitis #. S/p Laparoscopic appendectomy Abdomen and pelvis CT shows positive for acute appendicitis, consisting of distended appendix measuring up to 12 mm with mild surrounding inflammation Currently on Zosyn IVPB every 12 hours Tylenol, [place], Dilaudid as needed for pain management per primary surgical team Zofran as needed for nausea and vomiting Continue IV fluids Patient needs to be off anticoagulation for at least 48 hours prior to surgical intervention DVT prophylaxis: Anticoagulants held for surgery GI prophylaxis: Famotidine 20 mg IV daily CODE STATUS: FULL CODE Satnam Maloney MD Internal Medicine Resident, PGY1 Dictation was produced using [employer] dictation software. please excuse any grammatical, word or spelling errors. I saw and evaluated the patient during the moss and critical portions of this encounter, and discussed the case in detail with the resident author of this note, I agree with the Assessment and Plan, and my changes, if any, are highlighted in blue. Objective - Vital Signs Vital signs: Vital Signs Temp 97.8 F 03/27/25 07:11 Pulse 91 03/27/25 07:11 Resp 18 03/27/25 07:11 BP 129/77 03/27/25 07:11 Pulse Ox 97 03/27/25 07:11 FiO2 Intake & Output 03/26/25 03/27/25 03/27/25 18:59 06:59 18:59 Output Total 400 600 Balance -400 -600 Output: Urine 400 500 Straight 200 Post Void Residual 100 Other: # Voids 2 - Labs CBC & Chem 7: 03/27/25 07:41 03/27/25 07:41 Labs: Abnormal Lab Results - Last 24 Hours (Table) 03/26/25 03/26/25 Range/Units 08:04 08:04 WBC 15.98 H (4.50-10.00) 10*3/uL RBC 2.96 L (4.10-5.20) 10*6/uL Hgb 8.8 L D (12.0-15.0) g/dL Hct 28.0 L (37.2-46.3) % MCHC 31.4 L (32.0-37.0) g/dL Chloride 110 H (98-107) mmol/L Carbon Dioxide 19 L (22-30) mmol/L BUN 48 H (7-17) mg/dL Creatinine 2.19 H (0.52-1.04) mg/dL Glucose 128 H (74-99) mg/dL Calcium 7.7 L (8.4-10.2) mg/dL Microbiology - Last 24 Hours (Table) 03/24/25 03:24 Urine Culture - Final Urine,Voided Escherichia coli 03/24/25 05:50 Blood Culture - Preliminary Blood
[2025-03-28 08:08] LABS: Basophils # (A) 0.04 X 10*3/uL (0.00-0.10); Basophils % (A) 0.3 %; Eosinophils # (A) 0.28 X 10*3/uL (0.04-0.35); Eosinophils % (A) 2.2 %; HCT 23.5 % (37.2-46.3); HGB 7.1 g/dL (12.0-15.0); Lymphocytes # (A) 1.28 X 10*3/uL (0.90-5.00); Lymphocytes % (A) 10.1 %; MCHC 30.2 g/dL (32.0-37.0); MCV 95.9 FL (80.0-97.0); Mean Platelet Volume 10.2 FL (9.5-12.2); Monocytes # (A) 1.02 X 10*3/uL (0.20-1.00); Monocytes % (A) 8.1 %; NRBC Per 100 WBC 0 X 10*3/uL (0.00-0.01); Neutrophils # (A) 9.71 X 10*3/uL (1.80-7.70); Neutrophils % (A) 76.7 %; Platelet Count 249 X 10*3/uL (140-440); RBC 2.45 X 10*6/uL (4.10-5.20); RDW 14.9 % (11.5-14.5); WBC 12.66 X 10*3/uL (4.50-10.00)
[2025-03-28 08:27] LABS: BUN/Creat Ratio 29.27 Ratio (12.00-20.00); Blood Urea Nitrogen 43.9 mg/dL (9.0-27.0); Calcium 7.7 mg/dL (8.7-10.3); Carbon Dioxide 16.2 mmol/L (21.6-31.8); Chloride 114 mmol/L (96-109); Glucose 100 mg/dL (70-110); Magnesium 1.9 mg/dL (1.5-2.4); Potassium 3.6 mmol/L (3.5-5.5); Sodium 143 mmol/L (135-145)
[2025-03-28] MEDS: SENNOSIDES 8.6 MG TAB PO SCH ×2 (09:17→21:15)
--- NOTE | 2025-03-28 12:18 | P.PN ---
Subjective Progress Note Date: 03/28/25 SURGICAL PROGRESS NOTE CHIEF COMPLAINT: Appendicitis HISTORY OF PRESENT ILLNESS: Patient is postop day #3 status post laparoscopic appendectomy. She is short of breath after ambulating in the hallway. But she is not requiring O2. Her pain is controlled. She is having flatus. Denies any bowel movement. Denies any nausea or vomiting. WBC is down from 13-12 and hemoglobin trending down to 7.1 creatinine down to 1.5 magnesium 1.9 after magnesium supplement. Patient currently off of IV fluids PHYSICAL EXAM: VITAL SIGNS: Reviewed. GENERAL: Well-developed in no acute distress. HEENT: No sclera icterus. Extraocular movements grossly intact. Moist buccal mucosa. Head is atraumatic, normocephalic. ABDOMEN: Nondistended. Incision sites clean dry and intact NEUROLOGIC: Alert and oriented. Cranial nerves II through XII grossly intact. ASSESSMENT: 1. Acute appendicitis PLAN: -Follow-up on CT scan abdomen pelvis ordered by medicine service -Encourage patient to use incentive spirometer -Continue pain management -Continue antibiotics -Increase activity level -DVT prophylaxis SCDs Physician Glass Blowing Instructor note has been reviewed by physician. Signing provider agrees with the documented findings, assessment, and plan of care. Objective - Vital Signs Vital signs: Vital Signs Temp 98.4 F 03/28/25 08:34 Pulse 87 03/28/25 08:34 Resp 16 03/28/25 08:34 BP 148/69 03/28/25 08:34 Pulse Ox 97 03/28/25 08:34 FiO2 Intake & Output 03/27/25 03/28/25 03/28/25 18:59 06:59 18:59 Intake Total 1260 Output Total 100 200 Balance 1160 -200 Intake: Oral 1260 Output: Urine 100 200 Other: Voiding Method External Catheter # Voids 4 1 # Bowel Movements 1 - Labs CBC & Chem 7: 03/28/25 03:38 03/28/25 03:38 Labs: Abnormal Lab Results - Last 24 Hours (Table) 03/28/25 03/28/25 Range/Units 03:38 03:38 WBC 12.66 H (4.50-10.00) X 10*3/uL RBC 2.45 L (4.10-5.20) X 10*6/uL Hgb 7.1 L (12.0-15.0) g/dL Hct 23.5 L (37.2-46.3) % MCHC 30.2 L (32.0-37.0) g/dL RDW 14.9 H (11.5-14.5) % Immature Gran # 0.33 H (0.00-0.04) X 10*3/uL Neutrophils # 9.71 H (1.80-7.70) X 10*3/uL Monocytes # 1.02 H (0.20-1.00) X 10*3/uL Chloride 114 H (96-109) mmol/L Carbon Dioxide 16.2 L (21.6-31.8) mmol/L Anion Gap 12.80 H (4.00-12.00) mmol/L BUN 43.9 H (9.0-27.0) mg/dL Est GFR (CKD-EPI) 34 L (>=60) BUN/Creatinine Ratio 29.27 H (12.00-20.00) Ratio Calcium 7.7 L (8.7-10.3) mg/dL Microbiology - Last 24 Hours (Table) 03/24/25 05:50 Blood Culture - Preliminary Blood
--- NOTE | 2025-03-28 12:20 | CT ---
EXAMINATION TYPE: CT abdomen pelvis w con DATE OF EXAM: 03/28/2025 11:31 AM COMPARISON: 03/24/2025 CLINICAL INDICATION: Female, 85 years old with history of Abdominal pain; abdominal pain, low hemoglo bin, r/o bleed. TECHNIQUE: Axial CT abdomen pelvis w con;Sagittal and coronal reformats were created on a separate w orkstation. Contrast used:80 ml mL of Isovue 300 with IV Contrast, (none if empty) Oral contrast used: without Oral Contrast (none if empty) CT DLP: 1728.8 mGycm, Automated exposure control for dose reduction was used. FINDINGS: LOWER CHEST: Small right pleural effusion. ABDOMEN LIVER: Simple appearing GALLBLADDER AND BILE DUCTS: The gallbladder appears surgically absent. PANCREAS: Unremarkable. SPLEEN: Unremarkable. ADRENAL GLANDS: Unremarkable. KIDNEYS AND URETERS: No evidence of hydronephrosis or obstructing renal calculus. The ureters are unr emarkable. PELVIS BLADDER: No evidence for wall thickening or mass given limitations of exam. REPRODUCTIVE: Unremarkable. ABDOMEN & PELVIS STOMACH AND BOWEL: No evidence of bowel obstruction. The appendix is surgically absent. PERITONEUM/RETROPERITONEUM: No evidence of pneumoperitoneum . High density fluid is tracking along th e right abdominal wall compatible with hemorrhage with 70 Hounsfield units. This has a pancake-like m orphology along tracking along the right abdomen measuring up to 2.9 cm in thickness and extending at least 18.1 cm along the bowel mesentery. Blood products extend along the liver capsule. VASCULATURE: No evidence of aortic aneurysm. MUSCULOSKELETAL: No acute osseous abnormalities. Mild disc degeneration changes are present throughou t the thoracolumbar spine. Right hip arthroplasty appears intact. Compression deformity to the L3 howard tebral body without difficulty percent height loss appears chronic. LYMPH NODES: No gross evidence for lymphadenopathy. SOFT TISSUE/ABDOMINAL WALL: Subcutaneous gas along the bilateral abdominal wall correlate for recent surgical intervention. No organizing fluid collections within the visualized in the abdominal wall. IMPRESSION: 1. Peritoneal hematoma extending along the right lateral intra-abdominal mesentery. No evidence for active extravasation on this exam which is not timed appropriately for arterial phase. Findings likel y secondary to postsurgical change of appendectomy. 2. Small right pleural effusion. 3. Subcutaneous gas along the bilateral abdominal wall correlate for recent surgical intervention. [facility], , 03/28/2025 12:17 PM
[2025-03-28 13:25] LABS: HCT 23.5 % (37.2-46.3); HGB 7.5 g/dL (12.0-15.0); MCHC 31.9 g/dL (32.0-37.0); Mean Platelet Volume 9.8 fL (9.5-12.2); Platelet Count 275 10*3/uL (140-440); WBC 14.23 10*3/uL (4.50-10.00)
--- NOTE | 2025-03-28 17:59 | P.PN ---
Subjective Progress Note Date: 03/28/25 Hospital course: Patient is a 85 year old female with atrial fibrillation, DVT, hyperlipidemia, hypertension, osteoarthritis, hypothyroidism, cholecystectomy, hysterectomy, bladder surgery presented to the ED with abdominal pain. Patient reports having constipation chronically. She reports worsening of her symptoms in the past 2 weeks. She has tried using Metamucil, stool softeners, laxatives and also changed her diet but these have not helped with her symptoms. Yesterday a fternoon she started to experience cramping abdominal pain in the entire abdomen. Then it moved to the right lower quadrant. Denies fever, shortness of breath, cough, chest pain, palpitations, vomiting, hematuria, dysuria, hematochezia, melena, headache, slurred speech, numbness, tingling, dizziness, lightheadedness, blurred vision, double vision. ED documentation reviewed. In the ED patient was treated with Pepcid, Dilaudid, Tylenol, Zofran, vancomycin, Zosyn. 03/25/25: Patient is seen and examined at bedside today. She underwent surgery today. Has not had a bowel movement after the surgery or passed flatus. She reports her last bowel movement was on . 03/26/25: Pt c/o dyspnea, low UOP, constipation today. Has required straight cath overnight. 03/27/25: Patient seen and examined at bedside. Patient continues to have mild abdominal pain with movement. No other complaints. 03/28/25: Patient seen and examined at bedside. Mild abdominal pain. Bowel movement yesterday. Otherwise doing well. Review of systems: Pertinent positives and negatives as discussed in HPI, a complete review of systems was performed and all other systems are negative. Vitals: Signs Reviewed PHYSICAL EXAMINATION: Gen: In NAD, non-toxic HEENT: normocephalic, atraumatic, hearing acuity is intant, mucous membranes moist CVS: perfusing all extremities well, no pitting edema, Respiratory: symmetric chest expansion, no accessory muscle use, GI: soft, NTTP, mild generalized tenderness : no suprapubic tenderness, no CVA tenderness MSK/Derm: no rashes, cyanosis Neuro: CN II-XII intact, no motor weakness, Psych: cooperative, euthymic mood, judgment and insight is intact Today significant findings: Labs: WBC 14.2, hemoglobin 7.5, bicarb 12.8, BUN 43, creatinine 1.5, magnesium 1.9 CT abdomen pelvis with contrast with findings of peritoneal hematoma extending along the right lateral infra abdominal mesentery. No evidence for active extravasation on this exam does not timely properly for arterial phase. Small right pleural effusion. Subcutaneous gas along the bilateral abdominal wall correlate with recent surgical impression. Assessment/Plan: Patient is a 85 year old female with atrial fibrillation, DVT, hyperlipidemia, hypertension, osteoarthritis, hypothyroidism, cholecystectomy, hysterectomy presented to the ED with abdominal pain. Patient underwent laparoscopic appendectomy today. #Acute hypoxemic respiratory failure possibly secondary to CHF exacerbation - Encourage incentive spirometry - Chest x-ray today was reviewed, appears to have low right-sided lung volume, atelectasis proBNP 3852, echocardiogram ordered No need for Lasix at this time #LILLIAN, likely medication induced vs contrast induced, improving Discontinue IV fluids Hold Losartan Monitor BMP #. Paroxysmal Atrial fibrillation, on anticoagulation #Acute blood loss anemia [id number] score 4 Continue metoprolol 25 mg p.o. twice daily Xarelto held for surgery Continue to hold Xarelto for now, initiate ferrous sulfate daily CT abdomen pelvis with peritoneal hematoma extending along right lateral infra abdominal mesentery Hemoglobin 7.4, plan PRBC if less than 7 Monitor CBC Surgery following #. Hyperlipidemia Continue Pravastatin 20 mg PO HS #. Hypertension Continue losartan 100 mg p.o. daily #. Hypokalemia Monitor BMP #. Hypothyroidism Continue levothyroxine 112 mcg p.o. daily #. GERD On Pepcid 20 mg IV daily #. Anxiety/depression Continue buspirone 10 mg p.o. every 12 hours, duloxetine 90 mg p.o. daily #. Insomnia Continue ramelteon 8 mg p.o. at bedtime #. Asymptomatic bacteriuria UA shows cloudy appearance, positive nitrites, large leukocyte esterase, 74 WBC, occasional WBC clumps, 5 squamous epithelial cells, moderate bacteria, 5 hyaline casts, rare mucus Patient denies any UTI symptoms Currently on Zosyn for appendicitis #. Acute appendicitis #. S/p Laparoscopic appendectomy Abdomen and pelvis CT shows positive for acute appendicitis, consisting of distended appendix measuring up to 12 mm with mild surrounding inflammation Currently on Zosyn IVPB every 12 hours Tylenol, [place], Dilaudid as needed for pain management per primary surgical team Zofran as needed for nausea and vomiting Continue IV fluids Patient needs to be off anticoagulation for at least 48 hours prior to surgical intervention DVT prophylaxis: SCDs GI prophylaxis: Famotidine 20 mg IV daily CODE STATUS: FULL CODE Satnam Maloney MD Internal Medicine Resident, PGY1 Dictation was produced using [employer] dictation software. please excuse any grammatical, word or spelling errors. I saw and evaluated the patient during the moss and critical portions of this encounter, and discussed the case in detail with the resident author of this note, I agree with the Assessment and Plan, and my changes, if any, are highlighted in blue. Objective - Vital Signs Vital signs: Vital Signs Temp 97.7 F 03/28/25 01:05 Pulse 94 03/28/25 01:05 Resp 20 03/28/25 01:05 BP 116/65 03/28/25 01:05 Pulse Ox 99 03/28/25 01:05 FiO2 Intake & Output 03/27/25 03/28/25 03/28/25 18:59 06:59 18:59 Intake Total 1260 Output Total 100 200 Balance 1160 -200 Intake: Oral 1260 Output: Urine 100 200 Other: Voiding Method External Catheter # Voids 4 1 # Bowel Movements 1 - Labs CBC & Chem 7: 03/28/25 12:39 03/28/25 03:38 Labs: Abnormal Lab Results - Last 24 Hours (Table) 03/27/25 03/27/25 Range/Units 07:41 07:41 WBC 13.68 H (4.50-10.00) X 10*3/uL RBC 2.48 L (4.10-5.20) X 10*6/uL Hgb 7.4 L (12.0-15.0) g/dL Hct 23.3 L (37.2-46.3) % MCHC 31.8 L (32.0-37.0) g/dL RDW 14.6 H (11.5-14.5) % Immature Gran # 0.14 H (0.00-0.04) X 10*3/uL Neutrophils # 11.60 H (1.80-7.70) X 10*3/uL Chloride 113 H (96-109) mmol/L Carbon Dioxide 17.4 L (21.6-31.8) mmol/L Anion Gap 12.60 H (4.00-12.00) mmol/L BUN 48.6 H (9.0-27.0) mg/dL Creatinine 1.9 H (0.6-1.5) mg/dL Est GFR (CKD-EPI) 26 L (>=60) BUN/Creatinine Ratio 25.58 H (12.00-20.00) Ratio Calcium 7.5 L (8.7-10.3) mg/dL NT-Pro-B Natriuret Pep 3852 H (0-450) pg/mL Microbiology - Last 24 Hours (Table) 03/24/25 05:50 Blood Culture - Preliminary Blood
[2025-03-28] MEDS: PIPERACILLIN-TAZOBACTAM 3.375 GM in SODIUM CHLORIDE 0.9% 100 ML IVPB SCH (18:29)
[2025-03-29 04:07] LABS: HCT 21.8 % (37.2-46.3); MCH 29.5 pg (27.0-32.0); MCHC 32.1 g/dL (32.0-37.0); Mean Platelet Volume 9.2 fL (9.5-12.2); Platelet Count 269 10*3/uL (140-440); RBC 2.37 10*6/uL (4.10-5.20); RDW 14.9 % (11.5-14.5)
[2025-03-29 04:20] LABS: African American GFR (CKD) 44 (>60 ml/min/1.73 sqM); Anion Gap 10 mmol/L; Blood Urea Nitrogen 40 mg/dL (7-17); Calcium 8.6 mg/dL (8.4-10.2); Carbon Dioxide 17 mmol/L (22-30); Chloride 114 mmol/L (98-107); Glucose 107 mg/dL (74-99); Non-African American GFR(CKD) 38 (>60 ml/min/1.73 sqM); Potassium 3.3 mmol/L (3.5-5.1); Sodium 141 mmol/L (137-145)
[2025-03-29] MEDS ORDERED: Potassium Replacement Protocol 1 EACH MISC MISCELLANE PRN (04:31)
[2025-03-29] MEDS: POTASSIUM CHLORIDE ER 20 MEQ TAB.ER PO SCH (04:59)
[2025-03-29 08:00] LABS: Basophils # (M) 0.13 k/uL (0-0.2); Eosinophils # (M) 0.13 k/uL (0-0.7); Lymphocytes # (M) 1.18 k/uL (1.0-4.8); Monocytes # (M) 1.05 k/uL (0-1.0); Neutrophils # (M) 10.61 k/uL (1.3-7.7); Neutrophils % (M) 81 %; Nucleated Red Blood Cells 0 /100 WBC (0-0); Spherocytes Present; Total Cells Counted 100
[2025-03-29 08:18] LABS: African American GFR (CKD) 44 (>60 ml/min/1.73 sqM); Anion Gap 8 mmol/L; Blood Urea Nitrogen 38 mg/dL (7-17); Calcium 8.2 mg/dL (8.4-10.2); Carbon Dioxide 18 mmol/L (22-30); Chloride 117 mmol/L (98-107); Glucose 112 mg/dL (74-99); Non-African American GFR(CKD) 38 (>60 ml/min/1.73 sqM); Potassium 3.5 mmol/L (3.5-5.1); Sodium 143 mmol/L (137-145)
[2025-03-29] MEDS: POTASSIUM CHLORIDE ER 20 MEQ TAB.ER PO STA (08:24)
--- NOTE | 2025-03-29 11:24 | P.PN ---
Subjective Progress Note Date: 03/29/25 Hospital course: Patient is a 85 year old female with atrial fibrillation, DVT, hyperlipidemia, hypertension, osteoarthritis, hypothyroidism, cholecystectomy, hysterectomy, bladder surgery presented to the ED with abdominal pain. Patient reports having constipation chronically. She reports worsening of her symptoms in the past 2 weeks. She has tried using Metamucil, stool softeners, laxatives and also changed her diet but these have not helped with her symptoms. Yesterday a fternoon she started to experience cramping abdominal pain in the entire abdomen. Then it moved to the right lower quadrant. Denies fever, shortness of breath, cough, chest pain, palpitations, vomiting, hematuria, dysuria, hematochezia, melena, headache, slurred speech, numbness, tingling, dizziness, lightheadedness, blurred vision, double vision. ED documentation reviewed. In the ED patient was treated with Pepcid, Dilaudid, Tylenol, Zofran, vancomycin, Zosyn. 03/25/25: Patient is seen and examined at bedside today. She underwent surgery today. Has not had a bowel movement after the surgery or passed flatus. She reports her last bowel movement was on . 03/26/25: Pt c/o dyspnea, low UOP, constipation today. Has required straight cath overnight. 03/27/25: Patient seen and examined at bedside. Patient continues to have mild abdominal pain with movement. No other complaints. 03/28/25: Patient seen and examined at bedside. Mild abdominal pain. Bowel movement yesterday. Otherwise doing well. 03/29/25: Patient seen and examined at bedside. Mild abdominal pain. Otherwise d oing well. Review of systems: Pertinent positives and negatives as discussed in HPI, a complete review of systems was performed and all other systems are negative. Vitals: Signs Reviewed PHYSICAL EXAMINATION: Gen: In NAD, non-toxic CVS: perfusing all extremities well, trace pitting edema Respiratory: symmetric chest expansion, no accessory muscle use, no wheezing or crackles GI: soft, NTTP, mild generalized tenderness MSK/Derm: no rashes, cyanosis Neuro: no motor weakness Today significant findings: LabsWBC 13.1, hemoglobin 7.0, potassium 3.3, bicarb 17, BUN 40, creatinine 1.29, glucose 107 No new imaging Assessment/Plan: Patient is a 85 year old female with atrial fibrillation, DVT, hyperlipidemia, hypertension, osteoarthritis, hypothyroidism, cholecystectomy, hysterectomy presented to the ED with abdominal pain. Patient underwent laparoscopic appendectomy today. #Acute hypoxemic respiratory failure possibly secondary to CHF exacerbation - Encourage incentive spirometry - Chest x-ray today was reviewed, appears to have low right-sided lung volume, atelectasis proBNP 3852, echocardiogram ordered No need for Lasix at this time #LILLIAN, likely medication induced vs contrast induced, improving Discontinue IV fluids Resume losartan Monitor BMP #. Paroxysmal Atrial fibrillation, on anticoagulation #Acute blood loss anemia [id number] score 4 Continue metoprolol 25 mg p.o. twice daily Xarelto held for surgery Continue to hold Xarelto for now, initiate ferrous sulfate daily CT abdomen pelvis with peritoneal hematoma extending along right lateral infra abdominal mesentery Hemoglobin 7.4, plan PRBC if less than 7 Monitor CBC Surgery following #. Hyperlipidemia Continue Pravastatin 20 mg PO HS #. Hypertension Continue losartan 100 mg p.o. daily #. Hypokalemia Monitor BMP #. Hypothyroidism Continue levothyroxine 112 mcg p.o. daily #. GERD On Pepcid 20 mg IV daily #. Anxiety/depression Continue buspirone 10 mg p.o. every 12 hours, duloxetine 90 mg p.o. daily #. Insomnia Continue ramelteon 8 mg p.o. at bedtime #. Asymptomatic bacteriuria UA shows cloudy appearance, positive nitrites, large leukocyte esterase, 74 WBC, occasional WBC clumps, 5 squamous epithelial cells, moderate bacteria, 5 hyaline casts, rare mucus Patient denies any UTI symptoms Currently on Zosyn for appendicitis #. Acute appendicitis #. S/p Laparoscopic appendectomy Abdomen and pelvis CT shows positive for acute appendicitis, consisting of diste nded appendix measuring up to 12 mm with mild surrounding inflammation Currently on Zosyn IVPB every 12 hours Tylenol, [place], Dilaudid as needed for pain management per primary surgical team Zofran as needed for nausea and vomiting Continue IV fluids Patient needs to be off anticoagulation for at least 48 hours prior to surgical intervention DVT prophylaxis: SCDs GI prophylaxis: Famotidine 20 mg IV daily CODE STATUS: FULL CODE Satnam Maloney MD Internal Medicine Resident, PGY1 Dictation was produced using [employer] dictation software. please excuse any grammatical, word or spelling errors. Thank you for the consult I have seen and evaluated the patient today. I reviewed the resident's note and agree. Changes are highlighted in blue font. Objective - Vital Signs Vital signs: Vital Signs Temp 98.6 F 03/29/25 00:25 Pulse 84 03/29/25 00:25 Resp 19 03/29/25 00:25 BP 137/59 03/29/25 00:25 Pulse Ox 98 03/29/25 00:25 FiO2 Intake & Output 03/28/25 03/29/25 03/29/25 18:59 06:59 18:59 Other: Voiding Method Toilet # Voids 5 2 - Labs CBC & Chem 7: 03/29/25 11:40 03/29/25 07:49 Labs: Abnormal Lab Results - Last 24 Hours (Table) 03/28/25 03/28/25 03/28/25 Range/Units 03:38 03:38 12:39 WBC 12.66 H 14.23 H (4.50-10.00) X 10*3/uL RBC 2.45 L 2.50 L (4.10-5.20) X 10*6/uL Hgb 7.1 L 7.5 L (12.0-15.0) g/dL Hct 23.5 L 23.5 L (37.2-46.3) % MCHC 30.2 L 31.9 L (32.0-37.0) g/dL RDW 14.9 H 15.0 H (11.5-14.5) % MPV (9.5-12.2) fL Immature Gran # 0.33 H (0.00-0.04) X 10*3/uL Neutrophils # 9.71 H (1.80-7.70) X 10*3/uL Monocytes # 1.02 H (0.20-1.00) X 10*3/uL Potassium (3.5-5.1) mmol/L Chloride 114 H (96-109) mmol/L Carbon Dioxide 16.2 L (21.6-31.8) mmol/L Anion Gap 12.80 H (4.00-12.00) mmol/L BUN 43.9 H (9.0-27.0) mg/dL Creatinine (0.52-1.04) mg/dL Est GFR (CKD-EPI) 34 L (>=60) BUN/Creatinine Ratio 29.27 H (12.00-20.00) Ratio Glucose (74-99) mg/dL Calcium 7.7 L (8.7-10.3) mg/dL 03/29/25 03/29/25 Range/Units 03:50 03:50 WBC 13.10 H (4.50-10.00) X 10*3/uL RBC 2.37 L (4.10-5.20) X 10*6/uL Hgb 7.0 L (12.0-15.0) g/dL Hct 21.8 L (37.2-46.3) % MCHC (32.0-37.0) g/dL RDW 14.9 H (11.5-14.5) % MPV 9.2 L (9.5-12.2) fL Immature Gran # 1.06 H (0.00-0.04) X 10*3/uL Neutrophils # (1.80-7.70) X 10*3/uL Monocytes # (0.20-1.00) X 10*3/uL Potassium 3.3 L (3.5-5.1) mmol/L Chloride 114 H (96-109) mmol/L Carbon Dioxide 17 L (21.6-31.8) mmol/L Anion Gap (4.00-12.00) mmol/L BUN 40 H (9.0-27.0) mg/dL Creatinine 1.29 H (0.52-1.04) mg/dL Est GFR (CKD-EPI) (>=60) BUN/Creatinine Ratio (12.00-20.00) Ratio Glucose 107 H (74-99) mg/dL Calcium (8.7-10.3) mg/dL
[2025-03-29 11:53] LABS: HCT 24.4 % (37.2-46.3); HGB 7.7 g/dL (12.0-15.0); MCH 29.4 pg (27.0-32.0); MCHC 31.6 g/dL (32.0-37.0); MCV 93.1 fL (80.0-97.0); Mean Platelet Volume 9.3 fL (9.5-12.2); Platelet Count 303 10*3/uL (140-440); RBC 2.62 10*6/uL (4.10-5.20); RDW 14.9 % (11.5-14.5); WBC 14.16 10*3/uL (4.50-10.00)
[2025-03-29] MEDS: LOSARTAN 50 MG TAB PO SCH (12:20)
--- NOTE | 2025-03-29 13:20 | P.PN ---
Subjective Progress Note Date: 03/29/25 SURGICAL PROGRESS NOTE CHIEF COMPLAINT: Appendicitis HISTORY OF PRESENT ILLNESS: Patient is postop day #4 status post laparoscopic appendectomy. Patient reports her pain is controlled. She denies any nausea or vomiting. Last bowel movement [address] scan abdomen pelvis reports a peritoneal hematoma extending along the right lateral intra-abdominal mesentery. No evidence of active extravasation. Findings likely secondary to postsurgical change of appendectomy. Hemoglobin this morning was 7.0 with a repeat hemoglobin of 7.7 WBC 14.16 PHYSICAL EXAM: VITAL SIGNS: Reviewed. GENERAL: Well-developed in no acute distress. HEENT: No sclera icterus. Extraocular movements grossly intact. Moist buccal mucosa. Head is atraumatic, normocephalic. ABDOMEN: Nondistended. Incision sites clean dry and intact. Patient does have ecchymosis along the right lower quadrant. Area is soft. Mild discomfort with palpation. NEUROLOGIC: Alert and oriented. Cranial nerves II through XII grossly intact. ASSESSMENT: 1. Acute appendicitis 2. Peritoneal hematoma noted on CT scan PLAN: -Transfused 1 unit of blood for hemoglobin of 7.7. Patient has been short of breath with movement -Continue antibiotics -Encourage patient to use incentive spirometer -Continue pain management -Increase activity level -Continue to hold Eliquis -DVT prophylaxis SCDs Physician Insurance Risk Manager note has been reviewed by physician. Signing provider agrees with the documented findings, assessment, and plan of care. Objective - Vital Signs Vital signs: Vital Signs Temp 97.9 F 03/29/25 07:30 Pulse 82 03/29/25 07:30 Resp 19 03/29/25 07:30 BP 152/74 03/29/25 07:30 Pulse Ox 97 03/29/25 10:06 FiO2 Intake & Output 03/28/25 03/29/25 03/29/25 18:59 06:59 18:59 Other: Voiding Method Toilet # Voids 5 2 - Labs CBC & Chem 7: 03/29/25 11:40 03/29/25 07:49 Labs: Abnormal Lab Results - Last 24 Hours (Table) 03/28/25 03/29/25 03/29/25 Range/Units 12:39 03:50 03:50 WBC 14.23 H 13.10 H (4.50-10.00) 10*3/uL RBC 2.50 L 2.37 L (4.10-5.20) 10*6/uL Hgb 7.5 L 7.0 L (12.0-15.0) g/dL Hct 23.5 L 21.8 L (37.2-46.3) % MCHC 31.9 L (32.0-37.0) g/dL RDW 15.0 H 14.9 H (11.5-14.5) % MPV 9.2 L (9.5-12.2) fL Immature Gran # 1.06 H (0.00-0.04) 10*3/uL Neutrophils # (Manual) 10.61 H (1.3-7.7) k/uL Monocytes # (Manual) 1.05 H (0-1.0) k/uL Potassium 3.3 L (3.5-5.1) mmol/L Chloride 114 H (98-107) mmol/L Carbon Dioxide 17 L (22-30) mmol/L BUN 40 H (7-17) mg/dL Creatinine 1.29 H (0.52-1.04) mg/dL Glucose 107 H (74-99) mg/dL Calcium (8.4-10.2) mg/dL Crossmatch 03/29/25 03/29/25 03/29/25 Range/Units 07:49 11:40 11:40 WBC 14.16 H (4.50-10.00) 10*3/uL RBC 2.62 L (4.10-5.20) 10*6/uL Hgb 7.7 L (12.0-15.0) g/dL Hct 24.4 L (37.2-46.3) % MCHC 31.6 L (32.0-37.0) g/dL RDW 14.9 H (11.5-14.5) % MPV 9.3 L (9.5-12.2) fL Immature Gran # (0.00-0.04) 10*3/uL Neutrophils # (Manual) (1.3-7.7) k/uL Monocytes # (Manual) (0-1.0) k/uL Potassium (3.5-5.1) mmol/L Chloride 117 H (98-107) mmol/L Carbon Dioxide 18 L (22-30) mmol/L BUN 38 H (7-17) mg/dL Creatinine 1.28 H (0.52-1.04) mg/dL Glucose 112 H (74-99) mg/dL Calcium 8.2 L (8.4-10.2) mg/dL Crossmatch See Detail Microbiology - Last 24 Hours (Table) 03/24/25 05:50 Blood Culture - Final Blood
[2025-03-30 01:36] VITALS: TEMP 98.1
--- NOTE | 2025-03-30 03:42 | XR ---
EXAM: XR Chest, 1 View CLINICAL HISTORY: ITS.REASON XR Reason: shortness of breath TECHNIQUE: Frontal view of the chest. COMPARISON: No relevant prior studies available. FINDINGS: Lungs: Right hilar consolidation, concerning for pneumonia. Pleural space: Small bilateral pleural effusions. No pneumothorax. Heart: Cardiomegaly. Mediastinum: Unremarkable. Bones/joints: Unremarkable. Upper abdomen: Elevated right hemidiaphragm. IMPRESSION: 1. Right hilar consolidation, concerning for pneumonia. 2. Small bilateral pleural effusions.
[2025-03-30 08:08] VITALS: BP 168/82; PULSE 87; RESP 19
[2025-03-30 08:37] LABS: BUN/Creat Ratio 31.55 Ratio (12.00-20.00); Blood Urea Nitrogen 34.7 mg/dL (9.0-27.0); Carbon Dioxide 16.5 mmol/L (21.6-31.8); Chloride 118 mmol/L (96-109); Glucose 96 mg/dL (70-110); Potassium 4.3 mmol/L (3.5-5.5); Sodium 145 mmol/L (135-145)
[2025-03-30] MEDS: FAMOTIDINE 20 MG TAB PO SCH (08:49)
[2025-03-30 08:51] LABS: HCT 27.2 % (37.2-46.3); HGB 8.2 g/dL (12.0-15.0); MCH 27.9 pg (27.0-32.0); MCHC 30.1 g/dL (32.0-37.0); MCV 92.5 FL (80.0-97.0); Mean Platelet Volume 10.1 FL (9.5-12.2); NRBC Per 100 WBC 0.02 X 10*3/uL (0.00-0.01); Platelet Count 307 X 10*3/uL (140-440); RBC 2.94 X 10*6/uL (4.10-5.20); RDW 16.9 % (11.5-14.5); WBC 15.64 X 10*3/uL (4.50-10.00)
--- NOTE | 2025-03-30 11:13 | P.DS ---
Providers Date of admission: 03/24/25 06:04 Expected date of discharge: 03/30/25 Attending physician: Andres Hope Consults: 03/24/25 06:03 Consult Physician Routine Consulting Provider: Ronit Aragon Consult Reason/Comments: medical management Do you want consulting provider notified?: Yes [facility] Course: Discharge diagnosis 1. Acute appendicitis 2. Right peritoneal hematoma due to bleeding after surgery Hospital course This is a 85-year-old female who presented with right lower quadrant abdominal pain. She had a CT scan abdomen pelvis that had reported acute appendicitis. Patient is status post laparoscopic appendectomy. Patient did have a drop in her hemoglobin a CT scan abdomen pelvis was ordered per medicine team and did show evidence of a right peritoneal hematoma. Patient likely had some bleeding after surgery. There is no acute extravasation noted on CAT scan. She did require a unit of blood during this admission. Her hemoglobin is stable at 8.2. Patient reports her pain is controlled. She is tolerating diet. She is having bowel movements. She is afebrile. She will be discharged with antibiotics. Recommend to hold Xarelto for 1 week. Patient cleared for discharge by medicine team. Patient is stable for discharge. Please refer to chart for any further details. Physician Supervisor Landscape note has been reviewed by physician. Signing provider agrees with the documented findings, assessment, and plan of care. Patient Condition at Discharge: Stable Plan - Discharge Summary New Discharge Prescriptions: New Levofloxacin [Levaquin] 500 mg PO DAILY 10 Days #10 tab Acetaminophen Tab [Tylenol Tab] 650 mg PO Q4H PRN #30 tablet PRN Reason: Pain Furosemide [Lasix] 20 mg PO DAILY #90 tab metroNIDAZOLE [Flagyl] 500 mg PO TID 10 Days #30 tab Continue Metoprolol Tartrate [Lopressor] 25 mg PO BID DULoxetine HCL [Cymbalta] 60 mg PO DAILY Pravastatin Sodium [Pravachol] 20 mg PO HS Losartan Potassium [Cozaar] 100 mg PO DAILY Levothyroxine Sodium [Synthroid] 112 mcg PO DAILY fluocinolone acetonide oiL [Dermotic] 2 - 3 drops BOTH EARS BID PRN PRN Reason: flares Ramelteon [Rozerem] 8 mg PO HS PRN PRN Reason: sleep Ketoconazole 2% Shampoo [Nizoral] 1 applic TOPICAL Q3D PRN PRN Reason: flares Clobetasol Propionate [Clobex 0.05% Soln] 1 applic TOPICAL HS PRN PRN Reason: flares busPIRone HCL 10 mg PO Q12H Pantoprazole [Protonix] 40 mg PO DAILY DULoxetine HCL [Cymbalta] 30 mg PO DAILY Rivaroxaban [Xarelto] 20 mg PO DAILY Discontinued hydroCHLOROthiazide 25 mg PO DAILY Discharge Medication List Metoprolol Tartrate [Lopressor] 25 mg PO BID 09/08/18 [History] DULoxetine HCL [Cymbalta] 60 mg PO DAILY 11/19/20 [History] Pravastatin Sodium [Pravachol] 20 mg PO HS 01/10/21 [History] Losartan Potassium [Cozaar] 100 mg PO DAILY 06/25/21 [History] busPIRone HCL 10 mg PO Q12H 05/30/22 [History] DULoxetine HCL [Cymbalta] 30 mg PO DAILY 08/08/22 [History] Levothyroxine Sodium [Synthroid] 112 mcg PO DAILY 08/08/22 [History] Pantoprazole [Protonix] 40 mg PO DAILY 08/08/22 [History] Clobetasol Propionate [Clobex 0.05% Soln] 1 applic TOPICAL HS PRN 03/24/25 [History] Ketoconazole 2% Shampoo [Nizoral] 1 applic TOPICAL Q3D PRN 03/24/25 [History] Ramelteon [Rozerem] 8 mg PO HS PRN 03/24/25 [History] Rivaroxaban [Xarelto] 20 mg PO DAILY 03/24/25 [History] fluocinolone acetonide oiL [Dermotic] 2 - 3 drops BOTH EARS BID PRN 03/24/25 [History] Acetaminophen Tab [Tylenol Tab] 650 mg PO Q4H PRN #30 tablet 03/30/25 [Rx] Furosemide [Lasix] 20 mg PO DAILY #90 tab 03/30/25 [Rx] Levofloxacin [Levaquin] 500 mg PO DAILY 10 Days #10 tab 03/30/25 [Rx] metroNIDAZOLE [Flagyl] 500 mg PO TID 10 Days #30 tab 03/30/25 [Rx] Follow up Appointment(s)/Referral(s): Whateley,Chris, DO [Primary Care Provider] - 1-2 days Andres Hope MD [STAFF PHYSICIAN] - 1 Week Activity/Diet/Wound Care/Special Instructions: Please see your PCP and hold xarelto for 7 days. You will also need echocardiogram outpatient. No lifting over 10 pounds Shower daily. No soaking or tub baths for 2 weeks Very light activity until you are reevaluated at your follow up appointment with your surgeon Discharge Disposition: HOME SELF-CARE
[2025-03-30 11:18] VITALS: BMI 38.7
--- NOTE | 2025-03-30 11:52 | P.PN ---
Subjective Progress Note Date: 03/30/25 Hospital course: Patient is a 85 year old female with atrial fibrillation, DVT, hyperlipidemia, hypertension, osteoarthritis, hypothyroidism, cholecystectomy, hysterectomy, bladder surgery presented to the ED with abdominal pain. Patient reports having constipation chronically. She reports worsening of her symptoms in the past 2 weeks. She has tried using Metamucil, stool softeners, laxatives and also changed her diet but these have not helped with her symptoms. Yesterday a fternoon she started to experience cramping abdominal pain in the entire abdomen. Then it moved to the right lower quadrant. Denies fever, shortness of breath, cough, chest pain, palpitations, vomiting, hematuria, dysuria, hematochezia, melena, headache, slurred speech, numbness, tingling, dizziness, lightheadedness, blurred vision, double vision. ED documentation reviewed. In the ED patient was treated with Pepcid, Dilaudid, Tylenol, Zofran, vancomycin, Zosyn. 03/25/25: Patient is seen and examined at bedside today. She underwent surgery today. Has not had a bowel movement after the surgery or passed flatus. She reports her last bowel movement was on . 03/26/25: Pt c/o dyspnea, low UOP, constipation today. Has required straight cath overnight. 03/27/25: Patient seen and examined at bedside. Patient continues to have mild abdominal pain with movement. No other complaints. 03/28/25: Patient seen and examined at bedside. Mild abdominal pain. Bowel movement yesterday. Otherwise doing well. 03/29/25: Patient seen and examined at bedside. Mild abdominal pain. Otherwise d oing well. 03/30/25: Patient seen and examined at bedside. Mild abdominal pain. Was given 1 unit of PRBC yesterday. Plan to discharge today Review of systems: Pertinent positives and negatives as discussed in HPI, a complete review of systems was performed and all other systems are negative. Vitals: Signs Reviewed PHYSICAL EXAMINATION: Gen: In NAD, non-toxic CVS: perfusing all extremities well, trace pitting edema Respiratory: symmetric chest expansion, no accessory muscle use, no wheezing or crackles GI: soft, NTTP, mild generalized tenderness MSK/Derm: no rashes, cyanosis Neuro: no motor weakness Today significant findings: LabsWBC 15.6, hemoglobin 8.2, bicarb 16.5, BUN 34.7, creatinine 1.1 No new imaging Assessment/Plan: Patient is a 85 year old female with atrial fibrillation, DVT, hyperlipidemia, hypertension, osteoarthritis, hypothyroidism, cholecystectomy, hysterectomy presented to the ED with abdominal pain. Patient underwent laparoscopic tonny endectomy today. #Acute hypoxemic respiratory failure possibly secondary to CHF exacerbation - Encourage incentive spirometry - Chest x-ray, appears to have low right-sided lung volume, atelectasis proBNP 3852, echocardiogram ordered, can be done outpatient Given IV Lasix 40 mg, begin 20 mg at home follow-up with cardiology #LILLIAN, likely medication induced vs contrast induced, improving Discontinue IV fluids Resume losartan Monitor BMP #Paroxysmal Atrial fibrillation, on anticoagulation #Acute blood loss anemia [id number] score 4 Continue metoprolol 25 mg p.o. twice daily Xarelto held for surgery, will hold for 7 days on discharge initiate ferrous sulfate daily CT abdomen pelvis with peritoneal hematoma extending along right lateral infra abdominal mesentery Hemoglobin 7.4, plan PRBC if less than 7 Monitor CBC Surgery following #. Hyperlipidemia Continue Pravastatin 20 mg PO HS #. Hypertension Continue losartan 100 mg p.o. daily #. Hypokalemia Monitor BMP #. Hypothyroidism Continue levothyroxine 112 mcg p.o. daily #. GERD On Pepcid 20 mg IV daily #. Anxiety/depression Continue buspirone 10 mg p.o. every 12 hours, duloxetine 90 mg p.o. daily #. Insomnia Continue ramelteon 8 mg p.o. at bedtime #. Asymptomatic bacteriuria UA shows cloudy appearance, positive nitrites, large leukocyte esterase, 74 WBC, occasional WBC clumps, 5 squamous epithelial cells, moderate bacteria, 5 hyaline casts, rare mucus Patient denies any UTI symptoms Currently on Zosyn for appendicitis #. Acute appendicitis #. S/p Laparoscopic appendectomy Abdomen and pelvis CT shows positive for acute appendicitis, consisting of distended appendix measuring up to 12 mm with mild surrounding inflammation Currently on Zosyn IVPB every 12 hours, plan to begin Levaquin on discharge Tylenol, [place], Dilaudid as needed for pain management per primary surgical team Zofran as needed for nausea and vomiting Continue IV fluids Patient is stable and medically optimized for discharge. DVT prophylaxis: SCDs GI prophylaxis: Famotidine 20 mg IV daily CODE STATUS: FULL CODE Satnam Maloney MD Internal Medicine Resident, PGY1 Dictation was produced using [employer] dictation software. please excuse any grammatical, word or spelling errors. I have seen and evaluated the patient today. Discussed with the resident and agree with the residents finding and plan as documented in the resident's note. Changes highlighted in blue font. Objective - Vital Signs Vital signs: Vital Signs Temp 98.1 F 03/30/25 07:10 Pulse 87 03/30/25 07:10 Resp 19 03/30/25 07:10 BP 168/82 03/30/25 07:10 Pulse Ox 96 03/30/25 07:10 FiO2 Intake & Output 03/29/25 03/30/25 03/30/25 18:59 06:59 18:59 Intake Total 310 780 Balance 310 780 Intake: Oral 780 Blood Product 310 Rc As-1 Unit 310 [id number] Other: # Voids 3 3 # Bowel Movements 1 1 - Labs CBC & Chem 7: 03/30/25 02:00 03/30/25 02:00 Labs: Abnormal Lab Results - Last 24 Hours (Table) 03/29/25 03/29/25 03/30/25 Range/Units 11:40 11:40 01:06 WBC 14.16 H (4.50-10.00) 10*3/uL RBC 2.62 L (4.10-5.20) 10*6/uL Hgb 7.7 L (12.0-15.0) g/dL Hct 24.4 L (37.2-46.3) % MCHC 31.6 L (32.0-37.0) g/dL RDW 14.9 H (11.5-14.5) % MPV 9.3 L (9.5-12.2) fL D-Dimer 5.76 H (<0.60) mg/L FEU Chloride (96-109) mmol/L Carbon Dioxide (21.6-31.8) mmol/L BUN (9.0-27.0) mg/dL Est GFR (CKD-EPI) (>=60) BUN/Creatinine Ratio (12.00-20.00) Ratio Calcium (8.7-10.3) mg/dL Crossmatch See Detail 03/30/25 Range/Units 02:00 WBC (4.50-10.00) 10*3/uL RBC (4.10-5.20) 10*6/uL Hgb (12.0-15.0) g/dL Hct (37.2-46.3) % MCHC (32.0-37.0) g/dL RDW (11.5-14.5) % MPV (9.5-12.2) fL D-Dimer (<0.60) mg/L FEU Chloride 118 H (96-109) mmol/L Carbon Dioxide 16.5 L (21.6-31.8) mmol/L BUN 34.7 H (9.0-27.0) mg/dL Est GFR (CKD-EPI) 49 L (>=60) BUN/Creatinine Ratio 31.55 H (12.00-20.00) Ratio Calcium 8.0 L (8.7-10.3) mg/dL Crossmatch Microbiology - Last 24 Hours (Table) 03/24/25 05:50 Blood Culture - Final Blood
[2025-03-30] MEDS: FUROSEMIDE 10 MG/ML 4 ML VIAL IV STA (12:05)
== END 2025-03-30 13:13 | disposition home or self-care (01) | DRG 397 ==
LOC: EC 23:48 → 4SSUR 03-24 06:04
PROVIDERS: ADMIT Surgery; ATTEND Surgery
PROC: 0DTJ4ZZ Resection of Appendix, Percutaneous Endoscopic Approach (ICD-10-PCS; principal; 2025-03-25 08:00)
PROC: 30233N1 Transfusion of Nonautologous Red Blood Cells into Peripheral Vein, Percutaneous Approach (ICD-10-PCS; 2025-03-29)
DX: K35.80 Unspecified acute appendicitis (principal); J96.01 Acute respiratory failure with hypoxia; D62 Acute posthemorrhagic anemia; N17.9 Acute kidney failure, unspecified; I11.0 Hypertensive heart disease with heart failure; I50.9 Heart failure, unspecified; E03.9 Hypothyroidism, unspecified; F32.A Depression, unspecified; I48.0 Paroxysmal atrial fibrillation; I10 Essential (primary) hypertension; E78.5 Hyperlipidemia, unspecified; F41.9 Anxiety disorder, unspecified; G47.00 Insomnia, unspecified; K59.09 Other constipation; K21.9 Gastro-esophageal reflux disease without esophagitis; E87.6 Hypokalemia; M19.90 Unspecified osteoarthritis, unspecified site; Z79.899 Other long term (current) drug therapy; Z90.710 Acquired absence of both cervix and uterus; Z86.718 Personal history of other venous thrombosis and embolism; Z79.890 Hormone replacement therapy; Z79.01 Long term (current) use of anticoagulants; Z85.828 Personal history of other malignant neoplasm of skin
CPT/HCPCS: 36415; 71045; 74177; 80048; 80053; 81001; 82150; 83605; 83690; 83735; 83880; 84484; 85025; 85027; 85379; 85610; 85730; 86850; 86900; 86901; 86920; 87040; 87077; 87086; 87186; 88304; 93005; 94760; 96361; 96365; 96366; 96367; 96375; 96376; 99285

== ENCOUNTER 2025-04-03 14:48 | Inpatient (IN) | payer MEDICARE ==
--- NOTE | 2025-04-03 15:13 | ED ---
General Adult HPI - General Chief complaint: Arrhythmia/Palpitations Stated complaint: Afib Time Seen by Provider: 04/03/25 14:50 Source: patient, EMS, RN notes reviewed Mode of arrival: EMS Limitations: no limitations - History of Present Illness Initial comments: Patient is an 85-year-old female present to the emergency department with concerns of palpitations. Patient states symptoms occur with exertion for the most part. Patient states this has been occurring over a week now. Patient has increased palpitations, feels like her heart is racing as well as shortness of breath, mostly with exertion. Patient was discharged from the hospital.. A round 8 days ago for appendix surgery. - Related Data Home Medications Medication Instructions Recorded Confirmed Metoprolol Tartrate [Lopressor] 25 mg PO BID 09/08/18 03/24/25 DULoxetine HCL [Cymbalta] 60 mg PO DAILY 11/19/20 03/24/25 Pravastatin Sodium [Pravachol] 20 mg PO HS 01/10/21 03/24/25 Losartan Potassium [Cozaar] 100 mg PO DAILY 06/25/21 03/24/25 busPIRone HCL 10 mg PO Q12H 05/30/22 03/24/25 DULoxetine HCL [Cymbalta] 30 mg PO DAILY 08/08/22 03/24/25 Levothyroxine Sodium [Synthroid] 112 mcg PO DAILY 08/08/22 03/24/25 Pantoprazole [Protonix] 40 mg PO DAILY 08/08/22 03/24/25 Clobetasol Propionate [Clobex 1 applic TOPICAL HS PRN 03/24/25 03/24/25 0.05% Soln] Ketoconazole 2% Shampoo [Nizoral] 1 applic TOPICAL Q3D PRN 03/24/25 03/24/25 Ramelteon [Rozerem] 8 mg PO HS PRN 03/24/25 03/24/25 Rivaroxaban [Xarelto] 20 mg PO DAILY 03/24/25 03/24/25 fluocinolone acetonide oiL 2 - 3 drops BOTH EARS BID PRN 03/24/25 03/24/25 [Dermotic] Previous Rx's Medication Instructions Recorded Acetaminophen Tab [Tylenol Tab] 650 mg PO Q4H PRN #30 tablet 03/30/25 Furosemide [Lasix] 20 mg PO DAILY #90 tab 03/30/25 Levofloxacin [Levaquin] 500 mg PO DAILY 10 Days #10 tab 03/30/25 metroNIDAZOLE [Flagyl] 500 mg PO TID 10 Days #30 tab 03/30/25 Allergies Allergy/AdvReac Type Severity Reaction Status Date / Time Sulfa (Sulfonamide Allergy Rash/Hives Verified 04/03/25 14:52 Antibiotics) Review of Systems ROS Statement: Those systems with pertinent positive or pertinent negative responses have been documented in the HPI. ROS Other: All systems not noted in ROS Statement are negative. Constitutional: Denies: fever Eyes: Denies: eye pain ENT: Denies: throat pain Respiratory: Reports: as per HPI Cardiovascular: Reports: as per HPI, palpitations, dyspnea on exertion. Denies: chest pain Endocrine: Denies: fatigue Past Medical History Past Medical History: Atrial Fibrillation, Cancer, Deep Vein Thrombosis (DVT), Hyperlipidemia, Hypertension, Osteoarthritis (OA), Thyroid Disorder Additional Past Medical History / Comment(s): HX DVT 2008., chronic UTI's, varicose veins, constipation, hx "ischemic colitis" 2010, skin cancer, SPINAL STENOSIS, NT left LEG/FOOT- USES WALKER., collapsed tendon left foot, duodenal ulcer, episode of a-fib after knee replacement History of Any Multi-Drug Resistant Organisms: None Reported Past Surgical History: Bladder Surgery, Cholecystectomy, Hysterectomy, Joint Replacement, Orthopedic Surgery Additional Past Surgical History / Comment(s): Parathyroidectomy, Bladder suspension, smita and screws right femur. Cortisone injection, pain clinic procedures. rt hip replacement, rt knee replacement 06/2021, lakisha cataracts., left knee replaced 2021, colonoscopy recently Past Anesthesia/Blood Transfusion Reactions: No Reported Reaction Past Psychological History: Depression Smoking Status: Never smoker Past Alcohol Use History: None Reported Past Drug Use History: None Reported - Past Family History Father Family Medical History: Cancer Additional Family Medical History / Comment(s): LUNG CANCER Mother Family Medical History: Cancer Additional Family Medical History / Comment(s): Breast Cancer. General Exam Limitations: no limitations General appearance: alert, in no apparent distress Head exam: Present: normocephalic Eye exam: Present: normal appearance Neck exam: Present: normal inspection Respiratory exam: Present: normal lung sounds bilaterally Cardiovascular Exam: Present: tachycardia, irregular rhythm Expanded Peripheral pulses: 2+: Radial (R), Radial (L), Dorsalis Pedis (R), Dorsalis Pedis (L) GI/Abdominal exam: Present: soft. Absent: tenderness Extremities exam: Present: normal inspection. Absent: calf tenderness Neurological exam: Present: alert Psychiatric exam: Present: normal affect, normal mood Skin exam: Present: normal color Course Vital Signs 04/03/25 04/03/25 04/03/25 14:50 14:54 15:30 Temperature 98.1 F Pulse Rate 146 H 160 H Respiratory 18 18 Rate Blood Pressure 145/91 130/77 O2 Sat by Pulse 95 98 97 Oximetry 04/03/25 16:30 Temperature Pulse Rate 140 H Respiratory 18 Rate Blood Pressure 135/77 O2 Sat by Pulse 97 Oximetry EKG Findings - EKG Results: EKG: interpreted by YON (Lateral ST depression.), normal axis, normal QRS EKG shows: tachycardia, atrial fibrillation Medical Decision Making - Medical Decision Making Was pt. sent in by a medical professional or institution (, PA, HUMAN RESOURCES COMPENSATION ANALYST, urgent care, hospital, or detention...) When possible be specific @ -No Did you speak to anyone other than the patient for history (EMS, parent, family, police, friend...)? What history was obtained from this source @ -Family arrives and provides additional history of recent anemia needing blood transfusion Did you review nursing and triage notes (agree or disagree)? Why? @ -I reviewed and agree with nursing and triage notes Were old charts reviewed (outside hosp., previous admission, EMS record, old EKG, old radiological studies, urgent care reports/EKG's, detention records)? Report findings @ -No old charts were reviewed Differential Diagnosis (chest pain, altered mental status, abdominal pain women, abdominal pain men, vaginal bleeding, weakness, fever, dyspnea, syncope, headache, dizziness, GI bleed, back pain, seizure, CVA, palpatations, mental health, musculoskeletal)? @ -MDM differential palpitations differential Palpitations Ventricular arrhythmias, atrial arrhythmias, myocardial infarction, anemia, thyrotoxicosis, electrolyte imbalance, hypokalemia, pulmonary embolism, pulmonary disease, drugs, alcohol, anxiety, stress.... This is not meant to be an all-inclusive list. EKG interpreted by me (3pts min.). @ -As above X-rays interpreted by me (1pt min.). @ -Chest x-ray shows elevated right hemidiaphragm versus effusion CT interpreted by me (1pt min.). @ -None done U/S interpreted by me (1pt. min.). @ -None done What testing was considered but not performed or refused? (CT, X-rays, U/S, labs)? Why? @ -Ultrasound chest has been ordered to evaluate for potential effusion What meds were considered but not given or refused? Why? @ -None Did you discuss the management of the patient with other professionals (nhi dye i.e. , PA, HUMAN RESOURCES COMPENSATION ANALYST, lab, RT, psych nurse, secondary social studies teacher, wireless sales manager, teacher, senior escrow officer, case technician)? Give summary @ -Case discussed with Dr. Shoemaker who will admit covering Dr. Giraldo Was smoking cessation discussed for >3mins.? @ -No Was critical care preformed (if so, how long)? @ -31 minutes critical care time Were there social determinants of health that impacted care today? How? (Homelessness, low income, unemployed, alcoholism, drug addiction, transportation, low edu. Level, literacy, decrease access to med. care, fdc, rehab)? @ -No Was there de-escalation of care discussed even if they declined (Discuss DNR or withdrawal of care, Hospice)? DNR status @ -No What co-morbidities impacted this encounter? (DM, HTN, Smoking, COPD, CAD, Cancer, CVA, ARF, Chemo, Hep., AIDS, mental health diagnosis, sleep apnea, morbid obesity)? @ -History of A-fib Was patient admitted / discharged? Hospital course, mention meds given and route, prescriptions, significant lab abnormalities, going to OR and other pertinent info. @ -Patient presents with A-fib RVR and dyspnea. Patient placed on Cardizem drip. Patient will be admitted with cardiac consult. Admission orders written. Patient reevaluated and updated. Undiagnosed new problem with uncertain prognosis? @ -No Drug Therapy requiring intensive monitoring for toxicity (Heparin, Nitro, Insulin, Cardizem)? @ -Cardizem drip Were any procedures done? @ -No Diagnosis/symptom? @ -A-fib with RVR Acute, or Chronic, or Acute on Chronic? @ -Acute Uncomplicated (without systemic symptoms) or Complicated (systemic symptoms)? @ -Complicated with hypokalemia and hypomagnesemia Side effects of treatment? @ -No Exacerbation, Progression, or Severe Exacerbation? @ -No Poses a threat to life or bodily function? How? (Chest pain, [place], [place], pneumonia, PE, COPD, DKA, ARF, appy, cholecystitis, CVA, Diverticulitis, Homicidal, Suicidal, threat to staff... and all critical care pts) @ -Threat to metabolic function as well as cardiac function - Lab Data Result diagrams: 04/03/25 15:33 04/03/25 15:33 Lab Results 04/03/25 04/03/25 04/03/25 Range/Units 15:33 15:33 15:33 WBC 16.04 H (4.50-10.00) 10*3/uL RBC 3.53 L (4.10-5.20) 10*6/uL Hgb 10.2 L (12.0-15.0) g/dL Hct 31.0 L (37.2-46.3) % MCV 87.8 D (80.0-97.0) fL MCH 28.9 (27.0-32.0) pg MCHC 32.9 (32.0-37.0) g/dL Plt Count 367 (140-440) 10*3/uL MPV 9.5 (9.5-12.2) fL Immature Gran % (Auto) 7.7 % Immature Gran # 1.23 H (0.00-0.04) 10*3/uL PT 11.8 (10.0-12.5) sec INR 1.1 (<1.2) APTT 21.6 L (22.0-30.0) sec Sodium 134 L (137-145) mmol/L Potassium 2.7 L* (3.5-5.1) mmol/L Chloride 102 (98-107) mmol/L Carbon Dioxide 22 (22-30) mmol/L Anion Gap 10 mmol/L BUN 15 (7-17) mg/dL Creatinine 0.77 (0.52-1.04) mg/dL Est GFR (CKD-EPI)AfAm 81 (>60 ml/min/1.73 sqM) Est GFR (CKD-EPI)NonAf 71 (>60 ml/min/1.73 sqM) Glucose 127 H (74-99) mg/dL Calcium 8.4 (8.4-10.2) mg/dL Magnesium 1.3 L (1.6-2.3) mg/dL Total Bilirubin 1.4 H (0.2-1.3) mg/dL AST 45 H (14-36) U/L ALT 16 (4-34) U/L Alkaline Phosphatase 73 (38-126) U/L Troponin I (0.000-0.034) ng/mL NT-Pro-B Natriuret Pep 1300 pg/mL Total Protein 5.8 L (6.3-8.2) g/dL Albumin 2.7 L (3.5-5.0) g/dL Free T4 1.09 (0.78-2.19) ng/dL 04/03/25 Range/Units 15:33 WBC (4.50-10.00) 10*3/uL RBC (4.10-5.20) 10*6/uL Hgb (12.0-15.0) g/dL Hct (37.2-46.3) % MCV (80.0-97.0) fL MCH (27.0-32.0) pg MCHC (32.0-37.0) g/dL Plt Count (140-440) 10*3/uL MPV (9.5-12.2) fL Immature Gran % (Auto) % Immature Gran # (0.00-0.04) 10*3/uL PT (10.0-12.5) sec INR (<1.2) APTT (22.0-30.0) sec Sodium (137-145) mmol/L Potassium (3.5-5.1) mmol/L Chloride (98-107) mmol/L Carbon Dioxide (22-30) mmol/L Anion Gap mmol/L BUN (7-17) mg/dL Creatinine (0.52-1.04) mg/dL Est GFR (CKD-EPI)AfAm (>60 ml/min/1.73 sqM) Est GFR (CKD-EPI)NonAf (>60 ml/min/1.73 sqM) Glucose (74-99) mg/dL Calcium (8.4-10.2) mg/dL Magnesium (1.6-2.3) mg/dL Total Bilirubin (0.2-1.3) mg/dL AST (14-36) U/L ALT (4-34) U/L Alkaline Phosphatase (38-126) U/L Troponin I 0.022 (0.000-0.034) ng/mL NT-Pro-B Natriuret Pep pg/mL Total Protein (6.3-8.2) g/dL Albumin (3.5-5.0) g/dL Free T4 (0.78-2.19) ng/dL Critical Care Time Critical Care Time: Yes Disposition Clinical Impression: Atrial fibrillation with RVR Disposition: ADMITTED IP TO THIS HOSP Condition: Serious Is patient prescribed a controlled substance at d/c from ED?: No Referrals: Chris Bella DO [Primary Care Provider] - 1-2 days Time of Disposition: 16:59
[2025-04-03] MEDS: DILTIAZEM 125 MG in DEXTROSE 5% IN WATER 100 ML IV SCH (15:30)
[2025-04-03] MEDS: DILTIAZEM 5 MG/ML 5 ML VIAL IVP STA (15:33)
[2025-04-03 16:06] LABS: Basophils # (A) 0.08 10*3/uL (0.00-0.10); Basophils % (A) 0.5 %; Eosinophils # (A) 0.26 10*3/uL (0.04-0.35); Eosinophils % (A) 1.6 %; HCT 31.0 % (37.2-46.3); HGB 10.2 g/dL (12.0-15.0); Lymphocytes # (A) 1.44 10*3/uL (0.90-5.00); Lymphocytes % (A) 9.0 %; MCH 28.9 pg (27.0-32.0); MCHC 32.9 g/dL (32.0-37.0); Monocytes # (A) 1.61 10*3/uL (0.20-1.00); Monocytes % (A) 10.0 %; Neutrophils # (A) 11.42 10*3/uL (1.80-7.70); Neutrophils % (A) 71.2 %; Platelet Count 367 10*3/uL (140-440); RBC 3.53 10*6/uL (4.10-5.20); RDW 15.9 % (11.5-14.5); WBC 16.04 10*3/uL (4.50-10.00)
[2025-04-03 16:14] LABS: MCV 87.8 fL (80.0-97.0)
--- NOTE | 2025-04-03 16:18 | XR ---
EXAMINATION TYPE: XR chest 2V DATE OF EXAM: 04/03/2025 4:12 PM COMPARISON: None. CLINICAL INDICATION: Female, 85 years old with history of dysrhythmia, TECHNIQUE: XR chest 2V view(s) obtained. FINDINGS: The heart size is normal. The pulmonary vasculature is normal. There appears to be a moderate Subpulmonic effusion on the right. Differential could include elevatio n of the right diaphragm. IMPRESSION: 1. Clinical correlation recommended for right subpulmonic effusion. [facility], , 04/03/2025 4:16 PM
[2025-04-03 16:19] LABS: ALT 16 U/L (4-34); AST 45 U/L (14-36); African American GFR (CKD) 81 (>60 ml/min/1.73 sqM); Albumin 2.7 g/dL (3.5-5.0); Alkaline Phosphatase 73 U/L (38-126); Anion Gap 10 mmol/L; Blood Urea Nitrogen 15 mg/dL (7-17); Calcium 8.4 mg/dL (8.4-10.2); Carbon Dioxide 22 mmol/L (22-30); Chloride 102 mmol/L (98-107); Glucose 127 mg/dL (74-99); Magnesium 1.3 mg/dL (1.6-2.3); Non-African American GFR(CKD) 71 (>60 ml/min/1.73 sqM); Sodium 134 mmol/L (137-145); Total Protein 5.8 g/dL (6.3-8.2)
[2025-04-03 16:27] LABS: NT-Pro-B-Type Natriuretic Pept 1300 pg/mL
[2025-04-03 16:28] LABS: INR 1.1 (<1.2); Partial Thromboplastin Time 21.6 sec (22.0-30.0); Prothrombin Time 11.8 sec (10.0-12.5)
[2025-04-03 16:35] LABS: T4, Free (Free Thyroxine) 1.09 ng/dL (0.78-2.19)
[2025-04-03 16:43] LABS: Potassium 2.7 mmol/L (3.5-5.1)
[2025-04-03] MEDS ORDERED: NALOXONE 0.4 MG/ML 1 ML VIAL IV PRN (17:00)
[2025-04-03] MEDS: MAGNESIUM SULFATE-D5W PMX 1 GM in DEXTROSE/WATER 1 100ML.BAG IVPB ONE (17:17)
[2025-04-03] MEDS: POTASSIUM CHLORIDE ER 20 MEQ TAB.ER PO STA (17:17)
[2025-04-03] MEDS: POTASSIUM CHLORIDE 10 MEQ in WATER FOR INJECTION 1 100ML.BAG IVPB SCH ×2 (17:17→19:40)
[2025-04-03] MEDS ORDERED: ONDANSETRON 4 MG in SODIUM CHLORIDE 0.9% 50 ML IVPB PRN (17:23)
--- NOTE | 2025-04-03 18:09 | P.HPIM ---
History of Present Illness H&P Date: 04/03/25 Patient is a 85 year old female with atrial fibrillation, DVT, hyperlipidemia, hypertension, osteoarthritis, hypothyroidism, cholecystectomy, hysterectomy status post appendectomy who presents with palpitations and shortness of breath. Symptoms occur with exertion and have been going on for over a week. She was discharged from this hospital 03/30/2025 where she had a laparoscopic appendectomy. Currently she is denying chest pain, cough. She is taken 1 dose of Xarelto since her discharge. She does endorse nausea and vomiting with a decreased appetite over the last few days. Her last bowel movement was 2 days ago. No recent fever or chills. She does endorse some mild abdominal pain which she feels is from her recent surgery. No other complaints at this time. ER findings: LabsWBC 16, hemoglobin 10.2, APTT 21.6, sodium 134, potassium 2.7, glucose 127, magnesium 1.3, total bilirubin 1.4, AST 45, troponin 0.022, proBNP 1300, TSH 12.3, free T4 1.09 Chest x-ray with findings of right subpulmonic effusion EKG independently interpreted as A-fib with RVR, rate 143, QTc 329. Lateral ST depression. Review of systems: Pertinent positives and negatives as discussed in HPI, a complete review of systems was performed and all other systems are negative. Vitals: Signs Reviewed PHYSICAL EXAMINATION: VITAL SIGNS: Reviewed GENERAL: Resting comfortably in bed. Obese. EYES: PERRL, no scleral injection or icterus. HENT: Normocephalic, atraumatic, hearing grossly intact, moist mucous membranes. CARDIOVASCULAR: S1 and S2 present. No murmurs, rubs, or gallops. PULMONARY: Chest is clear to auscultation, no wheezing, rhonchi, or crackles. ABDOMEN: Soft, mild generalized tenderness, nondistended. No palpable organomegaly. NEUROLOGICAL: Alert and oriented x 3. Gross neurological examination with no apparent focal deficits. EXTREMITIES: No pedal edema. SKIN: No apparent rashes. Assessment/Plan: Patient is a 85 year old female with atrial fibrillation, DVT, hyperlipidemia, hypertension, osteoarthritis, hypothyroidism, cholecystectomy, hysterectomy, status post appendectomy who presents with palpitations and shortness of breath. Spoke with the ER physician and patient accepted by internal medicine for treatment. #Paroxysmal Atrial fibrillation, with RVR #Dyspnea #Nausea vomiting #Recent Appendectomy #Severe hypokalemia #Hypomagnesemia #Leukocytosis, likely reactive #pleural effusion Initial potassium 2.7, magnesium 1.3 Chest x-ray with findings of right subpulmonic effusion Ultrasound chest ordered, may need thoracentesis if large effusion Echocardiogram ordered Begin Cardizem drip, titrate as needed, monitor BP Resume metoprolol 25 mg p.o. twice daily Resume home Xarelto Begin Zofran 4 mg every 8 hours as needed Given 1 g magnesium sulfate in ER Begin 3 g of magnesium sulfate Continuous cardiac monitoring Monitor CBC, CMP and magnesium Cardiology consulted #Elevated TSH #Hx of Hypothyroidism Possible lab error versus euthyroid sick syndrome Initial TSH 12.3, free T4 1.09. TSH 0.08 earlier this month Resume Synthroid Monitor symptoms Chronic medical conditions: #Hyperlipidemia #Hypertension #Anxiety/depression #Insomnia Resume home medications once reconciled DVT prophylaxis: Resume home Xarelto CODE STATUS: FULL CODE Anticipated discharge date and place: Pending clinical course Satnam Maloney MD Internal Medicine Resident, PGY1 Dictation was produced using [employer] dictation software. please excuse any grammatical, word or spelling errors. I have seen and evaluated the patient today. Discussed with the resident and agree with the residents finding and plan as documented in the resident's note. Changes highlighted in blue font. Past Medical History Past Medical History: Atrial Fibrillation, Cancer, Deep Vein Thrombosis (DVT), Hyperlipidemia, Hypertension, Osteoarthritis (OA), Thyroid Disorder Additional Past Medical History / Comment(s): HX DVT 2008., chronic UTI's, varicose veins, constipation, hx "ischemic colitis" 2010, skin cancer, SPINAL STENOSIS, NT left LEG/FOOT- USES WALKER., collapsed tendon left foot, duodenal ulcer, episode of a-fib after knee replacement History of Any Multi-Drug Resistant Organisms: None Reported Past Surgical History: Bladder Surgery, Cholecystectomy, Hysterectomy, Joint Replacement, Orthopedic Surgery Additional Past Surgical History / Comment(s): Parathyroidectomy, Bladder suspension, smita and screws right femur. Cortisone injection, pain clinic procedures. rt hip replacement, rt knee replacement 06/2021, lakisha cataracts., left knee replaced 2021, colonoscopy recently Past Anesthesia/Blood Transfusion Reactions: No Reported Reaction Past Psychological History: Depression Smoking Status: Never smoker Past Alcohol Use History: None Reported Past Drug Use History: None Reported - Past Family History Father Family Medical History: Cancer Additional Family Medical History / Comment(s): LUNG CANCER Mother Family Medical History: Cancer Additional Family Medical History / Comment(s): Breast Cancer. Medications and Allergies Home Medications Medication Instructions Recorded Confirmed Type Metoprolol Tartrate [Lopressor] 25 mg PO BID 09/08/18 03/24/25 History DULoxetine HCL [Cymbalta] 60 mg PO DAILY 11/19/20 03/24/25 History Pravastatin Sodium [Pravachol] 20 mg PO HS 01/10/21 03/24/25 History Losartan Potassium [Cozaar] 100 mg PO DAILY 06/25/21 03/24/25 History busPIRone HCL 10 mg PO Q12H 05/30/22 03/24/25 History DULoxetine HCL [Cymbalta] 30 mg PO DAILY 08/08/22 03/24/25 History Levothyroxine Sodium [Synthroid] 112 mcg PO DAILY 08/08/22 03/24/25 History Pantoprazole [Protonix] 40 mg PO DAILY 08/08/22 03/24/25 History Clobetasol Propionate [Clobex 1 applic TOPICAL HS PRN 03/24/25 03/24/25 History 0.05% Soln] Ketoconazole 2% Shampoo [Nizoral] 1 applic TOPICAL Q3D PRN 03/24/25 03/24/25 History Ramelteon [Rozerem] 8 mg PO HS PRN 03/24/25 03/24/25 History Rivaroxaban [Xarelto] 20 mg PO DAILY 03/24/25 03/24/25 History fluocinolone acetonide oiL 2 - 3 drops BOTH EARS BID PRN 03/24/25 03/24/25 History [Dermotic] Acetaminophen Tab [Tylenol Tab] 650 mg PO Q4H PRN #30 tablet 03/30/25 Rx Furosemide [Lasix] 20 mg PO DAILY #90 tab 03/30/25 Rx Levofloxacin [Levaquin] 500 mg PO DAILY 10 Days #10 tab 03/30/25 Rx metroNIDAZOLE [Flagyl] 500 mg PO TID 10 Days #30 tab 03/30/25 Rx Allergies Allergy/AdvReac Type Severity Reaction Status Date / Time Sulfa (Sulfonamide Allergy Rash/Hives Verified 04/03/25 14:52 Antibiotics) Physical Exam Vitals: Vital Signs Temp Pulse Resp BP Pulse Ox 04/03/25 16:30 140 H 18 135/77 97 04/03/25 15:30 160 H 18 130/77 97 04/03/25 14:54 98 04/03/25 14:50 98.1 F 146 H 18 145/91 95 Intake and Output 04/03/25 04/03/25 04/03/25 06:59 14:59 22:59 Other: Weight 99.518 kg Results CBC & Chem 7: 04/03/25 15:33 04/03/25 15:33 Labs: Abnormal Lab Results - Last 24 Hours (Table) 04/03/25 04/03/25 04/03/25 Range/Units 15:33 15:33 15:33 WBC 16.04 H (4.50-10.00) 10*3/uL RBC 3.53 L (4.10-5.20) 10*6/uL Hgb 10.2 L (12.0-15.0) g/dL Hct 31.0 L (37.2-46.3) % Immature Gran # 1.23 H (0.00-0.04) 10*3/uL APTT 21.6 L (22.0-30.0) sec Sodium 134 L (137-145) mmol/L Potassium 2.7 L* (3.5-5.1) mmol/L Glucose 127 H (74-99) mg/dL Magnesium 1.3 L (1.6-2.3) mg/dL Total Bilirubin 1.4 H (0.2-1.3) mg/dL AST 45 H (14-36) U/L Total Protein 5.8 L (6.3-8.2) g/dL Albumin 2.7 L (3.5-5.0) g/dL TSH 12.300 H (0.465-4.680) mIU/L
[2025-04-03] MEDS ORDERED: TEMAZEPAM 15 MG CAP PO PRN (18:10)
[2025-04-03] MEDS: MAGNESIUM SULFATE-D5W PMX 1 GM in DEXTROSE/WATER 1 100ML.BAG IVPB SCH (18:34)
--- NOTE | 2025-04-03 18:40 | US ---
EXAMINATION TYPE: US chest DATE OF EXAM: 04/03/2025 COMPARISON: XR 04/03/25 CLINICAL INDICATION: Female, 85 years old with history of eval for R effusion; eval r effusion TECHNIQUE: Grayscale imaging of the chest. Targeted ultrasound of the posterior lower right hemithor ax FINDINGS: EXAM MEASUREMENTS: Right Pleural Effusion pocket size: 9.3 cm Right skin surface to fluid distance: 2.7 cm distance from skin to visualized lung tissue: 5.2cm Right side marked for possible thoracentesis outside the dept. Pulmonologists are able to review the images in the patient?s EMR. IMPRESSIONS: 1. Right pleural effusion would correlate with the chest x-ray findings [facility], , 04/03/2025 6:38 PM
[2025-04-03] MEDS ORDERED: POTASSIUM CHLORIDE ER 20 MEQ TAB.ER PO SCH (21:00)
[2025-04-04] MEDS: METOPROLOL TARTRATE 25 MG TAB PO SCH (01:26)
[2025-04-04] MEDS: PRAVASTATIN SODIUM 20 MG TAB PO SCH (01:26)
[2025-04-04 06:18] LABS: Basophils # (A) 0.10 10*3/uL (0.00-0.10); Basophils % (A) 0.6 %; Eosinophils # (A) 0.42 10*3/uL (0.04-0.35); Eosinophils % (A) 2.5 %; HCT 29.8 % (37.2-46.3); HGB 9.6 g/dL (12.0-15.0); Lymphocytes # (A) 1.71 10*3/uL (0.90-5.00); Lymphocytes % (A) 10.2 %; MCH 28.7 pg (27.0-32.0); MCHC 32.2 g/dL (32.0-37.0); MCV 89.0 fL (80.0-97.0); Monocytes # (A) 2.10 10*3/uL (0.20-1.00); Monocytes % (A) 12.5 %; Neutrophils # (A) 11.10 10*3/uL (1.80-7.70); Neutrophils % (A) 66.1 %; Platelet Count 426 10*3/uL (140-440); RBC 3.35 10*6/uL (4.10-5.20); RDW 16.1 % (11.5-14.5); WBC 16.79 10*3/uL (4.50-10.00)
[2025-04-04] MEDS: LEVOTHYROXINE 112 MCG TAB PO SCH (06:27)
[2025-04-04 06:34] LABS: ALT 18 U/L (4-34); AST 44 U/L (14-36); African American GFR (CKD) 67 (>60 ml/min/1.73 sqM); Albumin 2.5 g/dL (3.5-5.0); Alkaline Phosphatase 68 U/L (38-126); Anion Gap 3 mmol/L; Blood Urea Nitrogen 15 mg/dL (7-17); Calcium 8.3 mg/dL (8.4-10.2); Carbon Dioxide 30 mmol/L (22-30); Chloride 101 mmol/L (98-107); Glucose 111 mg/dL (74-99); Magnesium 2.3 mg/dL (1.6-2.3); Non-African American GFR(CKD) 58 (>60 ml/min/1.73 sqM); Potassium 3.3 mmol/L (3.5-5.1); Sodium 134 mmol/L (137-145); Total Protein 5.6 g/dL (6.3-8.2)
[2025-04-04] MEDS: RIVAROXABAN 20 MG TAB PO SCH (08:51)
[2025-04-04] MEDS: DULoxetine HCL 60 MG CAPSULE.DR PO SCH (08:51)
[2025-04-04] MEDS: POTASSIUM CHLORIDE ER 20 MEQ TAB.ER PO STA (08:52)
--- NOTE | 2025-04-04 11:18 | P.PN ---
Subjective Progress Note Date: 04/04/25 Patient is a 85 year old female with atrial fibrillation, DVT, hyperlipidemia, hypertension, osteoarthritis, hypothyroidism, cholecystectomy, hysterectomy status post appendectomy who presents with palpitations and shortness of breath. Symptoms occur with exertion and have been going on for over a week. She was discharged from this hospital 03/30/2025 where she had a laparoscopic appendectomy. Currently she is denying chest pain, cough. She is taken 1 dose of Xarelto since her discharge. She does endorse nausea and vomiting with a decreased appetite over the last few days. Her last bowel movement was 2 days ago. No recent fever or chills. She does endorse some mild abdominal pain which she feels is from her recent surgery. No other complaints at this time. ER findings: LabsWBC 16, hemoglobin 10.2, APTT 21.6, sodium 134, potassium 2.7, glucose 127, magnesium 1.3, total bilirubin 1.4, AST 45, troponin 0.022, proBNP 1300, TSH 12.3, free T4 1.09 Chest x-ray with findings of right subpulmonic effusion EKG independently interpreted as A-fib with RVR, rate 143, QTc 329. Lateral ST depression. Review of systems: Pertinent positives and negatives as discussed in HPI, a complete review of systems was performed and all other systems are negative. Vitals: Signs Reviewed PHYSICAL EXAMINATION: VITAL SIGNS: Reviewed GENERAL: Resting comfortably in bed. Obese. CARDIOVASCULAR: S1 and S2 present. No murmurs, rubs, or gallops. PULMONARY: Chest is clear to auscultation, no wheezing, rhonchi, or crackles. ABDOMEN: Soft, mild generalized tenderness, nondistended. No palpable organome rose. NEUROLOGICAL: Alert and oriented x 3. Gross neurological examination with no apparent focal deficits. EXTREMITIES: No pedal edema. Today significant findings: LabsWBC 16.7, hemoglobin 9.6, sodium 134, potassium 3.3, glucose 111, magnesium 2.3, total bilirubin 0.9, free T3 1.5 Imagingultrasound chest right-sided pleural effusion, pocket size 9.3 cm Assessment/Plan: Patient is a 85 year old female with atrial fibrillation, DVT, hyperlipidemia, hypertension, osteoarthritis, hypothyroidism, cholecystectomy, hysterectomy, status post appendectomy who presents with palpitations and shortness of breath. Spoke with the ER physician and patient accepted by internal medicine for treatment. #Paroxysmal Atrial fibrillation, with RVR, now rate controlled #Dyspnea #Nausea vomiting #Recent Appendectomy #Severe hypokalemia, improving #Hypomagnesemia, resolved #Leukocytosis, likely reactive # Right-sided pleural effusion Initial potassium 2.7, magnesium 1.3 Chest x-ray with findings of right subpulmonic effusion Ultrasound chest right-sided pleural effusion, pocket size 9.3 cm Discontinue Cardizem drip Continue metoprolol 25 mg p.o. twice daily Holding Xarelto, may potentially resume tomorrow Begin Zofran 4 mg every 8 hours as needed Given 1 g magnesium sulfate in ER, and later 3 g of magnesium sulfate Continuous cardiac monitoring Monitor CBC, CMP and magnesium Pulmonology consulted for potential thoracentesis Cardiology following #Elevated TSH #Hypothyroidism Possible lab error versus euthyroid sick syndrome Initial TSH 12.3, free T4 1.09. TSH 0.08 earlier this month Resume Synthroid Monitor symptoms Chronic medical conditions: #Hyperlipidemia #Hypertension #Anxiety/depression #Insomnia Resume home medications once reconciled DVT prophylaxis: Hold Xarelto, begin subcu heparin 5000 units twice daily CODE STATUS: FULL CODE Anticipated discharge date and place: Pending clinical course Satnam Maloney MD Internal Medicine Resident, PGY1 Dictation was produced using [employer] dictation software. please excuse any grammatical, word or spelling errors. I have seen and evaluated the patient today. Discussed with the resident and agree with the residents finding and plan as documented in the resident's note. Changes highlighted in blue font. Objective - Vital Signs Vital signs: Vital Signs Temp 98.1 F 04/03/25 14:50 Pulse 67 04/04/25 06:00 Resp 17 04/04/25 06:00 BP 120/52 04/04/25 06:00 Pulse Ox 93 L 04/04/25 06:00 FiO2 Intake & Output 04/03/25 04/04/25 04/04/25 18:59 06:59 18:59 Intake Total 10.083 Balance 10.083 Weight 99.518 kg Intake: Intake, IV Titration 10.083 Amount Diltiazem 125 mg In 10.083 Dextrose 5% in Water 100 ml @ 5 MG/HR 5 mls/hr IV .Q24H [facility] Rx#:[id number] - Labs CBC & Chem 7: 04/04/25 05:27 04/04/25 05:27 Labs: Abnormal Lab Results - Last 24 Hours (Table) 04/03/25 04/03/25 04/03/25 Range/Units 15:33 15:33 15:33 WBC 16.04 H (4.50-10.00) 10*3/uL RBC 3.53 L (4.10-5.20) 10*6/uL Hgb 10.2 L (12.0-15.0) g/dL Hct 31.0 L (37.2-46.3) % MPV (9.5-12.2) fL Immature Gran # 1.23 H (0.00-0.04) 10*3/uL Neutrophils # 11.42 H (1.80-7.70) 10*3/uL Monocytes # 1.61 H (0.20-1.00) 10*3/uL APTT 21.6 L (22.0-30.0) sec Sodium 134 L (137-145) mmol/L Potassium 2.7 L* (3.5-5.1) mmol/L Glucose 127 H (74-99) mg/dL Calcium (8.4-10.2) mg/dL Magnesium 1.3 L (1.6-2.3) mg/dL Total Bilirubin 1.4 H (0.2-1.3) mg/dL AST 45 H (14-36) U/L Total Protein 5.8 L (6.3-8.2) g/dL Albumin 2.7 L (3.5-5.0) g/dL TSH 12.300 H (0.465-4.680) mIU/L Free T3 pg/mL 1.50 L (2.30-4.20) pg/mL 04/04/25 04/04/25 Range/Units 05:27 05:27 WBC 16.79 H (4.50-10.00) 10*3/uL RBC 3.35 L (4.10-5.20) 10*6/uL Hgb 9.6 L (12.0-15.0) g/dL Hct 29.8 L (37.2-46.3) % MPV 9.0 L (9.5-12.2) fL Immature Gran # 1.36 H (0.00-0.04) 10*3/uL Neutrophils # (1.80-7.70) 10*3/uL Monocytes # (0.20-1.00) 10*3/uL APTT (22.0-30.0) sec Sodium 134 L (137-145) mmol/L Potassium 3.3 L (3.5-5.1) mmol/L Glucose 111 H (74-99) mg/dL Calcium 8.3 L (8.4-10.2) mg/dL Magnesium (1.6-2.3) mg/dL Total Bilirubin (0.2-1.3) mg/dL AST 44 H (14-36) U/L Total Protein 5.6 L (6.3-8.2) g/dL Albumin 2.5 L (3.5-5.0) g/dL TSH (0.465-4.680) mIU/L Free T3 pg/mL (2.30-4.20) pg/mL
--- NOTE | 2025-04-04 13:03 | P.CRDCN ---
History of Present Illness History of present illness: HISTORY OF PRESENT ILLNESS: This is a 85-year-old female with a past medical history significant for hypertension, hyperlipidemia, paroxysmal atrial fibrillation, and obesity. Patient follows in the office with Dr. Ortiz. We have been asked to see the patient in consultation for atrial fibrillation. Patient examined at the bedside. Patient presented to the hospital with a chief complaint of palpitations. It is noted that the patient underwent laparoscopic appendectomy on 03/25/2025. Patient was found to be in atrial fibrillation with RVR. She has a known history of atrial fibrillation. She was started on IV Cardizem which is currently infusing at 10 mg an hour. She has since converted to sinus mechanism and is maintaining sinus mechanism at the time of examination. This morning she denies any chest pain or shortness of breath. Patient had an echocardiogram completed in January 2024 revealing mild to moderate aortic and mild mitral and tricuspid agitation with an EF of 55%. REVIEW OF SYSTEMS: At the time of my exam: CONSTITUTIONAL: Denies fever or chills. HEENT: Denies blurred vision, vision changes, or eye pain. Denies hemoptysis CARDIOVASCULAR: Denies chest pain. Denies orthopnea. Denies PND. Denies palpitations RESPIRATORY: Denies shortness of breath. GASTROINTESTINAL: Denies abdominal pain. Denies nausea or vomiting. HEMATOLOGIC: Denies bleeding disorders. GENITOURINARY: Denies any blood in urine. SKIN: Denies pruitis. Denies rash. PHYSICAL EXAM: VITAL SIGNS: Reviewed. GENERAL: Well-developed in no acute distress. HEENT: Head is normocephalic. Pupils are equal, round. Sclerae anicteric. Mucous membranes of the mouth are moist. Neck supple. No JVD or thyromegaly LUNGS: Respirations even and unlabored. Lungs essentially clear to auscultation bilaterally. HEART: Regular rate and rhythm. S1 and S2 heard. ABDOMEN: Soft. Nondistended. Nontender. EXTREMITIES: Normal range of motion. No clubbing or cyanosis. Peripheral pulses intact. No lower extremity edema NEUROLOGIC: Awake and alert. Oriented x 3. ASSESSMENT: Paroxysmal atrial fibrillation with RVR, currently maintaining sinus mechanism Status post appendectomy, 03/25/2025 Hypertension Hyperlipidemia Obesity: BMI 41.5 PLAN: Recommend resuming Xarelto. However primary medicine is holding Xarelto. Will defer anticoagulation to primary medicine. No indication to complete echocardiogram on an inpatient basis Discontinue IV Cardizem Resume home cardiac medications Patient is currently stable from a cardiac standpoint with no further inpatient recommendations We will sign off. Please reconsult if needed. Nurse practitioner note has been reviewed by physician. Signing provider agrees with the documented findings, assessment, and plan of care documented by RAG SHREDDER as a scribe. Past Medical History Past Medical History: Atrial Fibrillation, Cancer, Deep Vein Thrombosis (DVT), Hyperlipidemia, Hypertension, Osteoarthritis (OA), Thyroid Disorder Additional Past Medical History / Comment(s): HX DVT 2008., chronic UTI's, varicose veins, constipation, hx "ischemic colitis" 2010, skin cancer, SPINAL STENOSIS, NT left LEG/FOOT- USES WALKER., collapsed tendon left foot, duodenal ulcer, episode of a-fib after knee replacement History of Any Multi-Drug Resistant Organisms: None Reported Past Surgical History: Bladder Surgery, Cholecystectomy, Hysterectomy, Joint Replacement, Orthopedic Surgery Additional Past Surgical History / Comment(s): Parathyroidectomy, Bladder suspension, smita and screws right femur. Cortisone injection, pain clinic procedures. rt hip replacement, rt knee replacement 06/2021, lakisha cataracts., left knee replaced 2021, colonoscopy recently Past Anesthesia/Blood Transfusion Reactions: No Reported Reaction Past Psychological History: Depression Smoking Status: Never smoker Past Alcohol Use History: None Reported Past Drug Use History: None Reported - Past Family History Father Family Medical History: Cancer Additional Family Medical History / Comment(s): LUNG CANCER Mother Family Medical History: Cancer Additional Family Medical History / Comment(s): Breast Cancer. Medications and Allergies Home Medications Medication Instructions Recorded Confirmed Type Metoprolol Tartrate [Lopressor] 25 mg PO BID 09/08/18 04/04/25 History DULoxetine HCL [Cymbalta] 60 mg PO DAILY 11/19/20 04/04/25 History Pravastatin Sodium [Pravachol] 20 mg PO HS 01/10/21 04/04/25 History Losartan Potassium [Cozaar] 100 mg PO DAILY 06/25/21 04/04/25 History busPIRone HCL 10 mg PO Q12H 05/30/22 04/04/25 History DULoxetine HCL [Cymbalta] 30 mg PO DAILY 08/08/22 04/04/25 History Levothyroxine Sodium [Synthroid] 112 mcg PO DAILY 08/08/22 04/04/25 History Pantoprazole [Protonix] 40 mg PO DAILY 08/08/22 04/04/25 History Clobetasol Propionate [Clobex 1 applic TOPICAL HS PRN 03/24/25 04/04/25 History 0.05% Soln] Ketoconazole 2% Shampoo [Nizoral] 1 applic TOPICAL Q3D PRN 03/24/25 04/04/25 History Ramelteon [Rozerem] 8 mg PO HS PRN 03/24/25 04/04/25 History Rivaroxaban [Xarelto] 20 mg PO DAILY 03/24/25 04/04/25 History fluocinolone acetonide oiL 2 - 3 drops BOTH EARS BID PRN 03/24/25 04/04/25 History [Dermotic] Acetaminophen Tab [Tylenol Tab] 650 mg PO Q4H PRN #30 tablet 03/30/25 04/04/25 Rx Furosemide [Lasix] 20 mg PO DAILY #90 tab 03/30/25 04/04/25 Rx Levofloxacin [Levaquin] 500 mg PO DAILY 10 Days #10 tab 03/30/25 04/04/25 Rx metroNIDAZOLE [Flagyl] 500 mg PO TID 10 Days #30 tab 03/30/25 04/04/25 Rx Allergies Allergy/AdvReac Type Severity Reaction Status Date / Time Sulfa (Sulfonamide Allergy Rash/Hives Verified 04/04/25 10:34 Antibiotics) Physical Exam Vitals: Vital Signs Temp Pulse Resp BP Pulse Ox 04/04/25 12:00 65 18 169/70 95 04/04/25 11:00 71 18 161/79 95 04/04/25 10:00 64 16 145/67 94 L 04/04/25 08:53 86 18 141/62 93 L 04/04/25 06:00 67 17 120/52 93 L 04/04/25 05:00 64 18 104/49 93 L 04/04/25 04:00 63 19 109/54 93 L 04/04/25 03:00 62 18 103/51 92 L 04/04/25 00:00 84 18 118/53 93 L 04/03/25 23:00 85 19 113/59 93 L 04/03/25 20:53 80 18 139/60 97 04/03/25 19:31 82 16 141/58 98 04/03/25 18:00 96 16 129/70 98 04/03/25 16:30 140 H 18 135/77 97 04/03/25 15:30 160 H 18 130/77 97 04/03/25 14:54 98 04/03/25 14:50 98.1 F 146 H 18 145/91 95 Intake and Output 04/03/25 04/04/25 04/04/25 22:59 06:59 14:59 Intake Total 10.083 Balance 10.083 Intake: Intake, IV Titration 10.083 Amount Diltiazem 125 mg In 10.083 Dextrose 5% in Water 100 ml @ 5 MG/HR 5 mls/hr IV .Q24H [facility] Rx#:[id number] Results 04/04/25 05:27 04/04/25 05:27 Cardiac Enzymes 04/03/25 04/03/25 04/04/25 Range/Units 15:33 15:33 05:27 AST 45 H 44 H (14-36) U/L Troponin I 0.022 (0.000-0.034) ng/mL Coagulation 04/03/25 Range/Units 15:33 PT 11.8 (10.0-12.5) sec APTT 21.6 L (22.0-30.0) sec CBC 04/03/25 04/04/25 Range/Units 15:33 05:27 WBC 16.04 H 16.79 H (4.50-10.00) 10*3/uL RBC 3.53 L 3.35 L (4.10-5.20) 10*6/uL Hgb 10.2 L 9.6 L (12.0-15.0) g/dL Hct 31.0 L 29.8 L (37.2-46.3) % Plt Count 367 426 (140-440) 10*3/uL Comprehensive Metabolic Panel 04/03/25 04/04/25 Range/Units 15:33 05:27 Sodium 134 L 134 L (137-145) mmol/L Potassium 2.7 L* 3.3 L (3.5-5.1) mmol/L Chloride 102 101 (98-107) mmol/L Carbon Dioxide 22 30 (22-30) mmol/L BUN 15 15 (7-17) mg/dL Creatinine 0.77 0.91 (0.52-1.04) mg/dL Glucose 127 H 111 H (74-99) mg/dL Calcium 8.4 8.3 L (8.4-10.2) mg/dL AST 45 H 44 H (14-36) U/L ALT 16 18 (4-34) U/L Alkaline Phosphatase 73 68 (38-126) U/L Total Protein 5.8 L 5.6 L (6.3-8.2) g/dL Albumin 2.7 L 2.5 L (3.5-5.0) g/dL Current Medications Generic Name Dose Route Start Last Admin Trade Name Freq PRN Reason Stop Dose Admin Acetaminophen 650 mg 04/03/25 18:00 Acetaminophen Tab 325 Mg Tab PO Q4HR PRN Fever and/ or Mild Pain Buspirone HCl 10 mg 04/03/25 19:00 04/04/25 08:51 Buspirone Hcl 10 Mg Tab PO 10 mg Q12HR [facility] Administration Duloxetine HCl 60 mg 04/04/25 09:00 04/04/25 08:51 Duloxetine Hcl 60 Mg Capsule.Dr PO 60 mg DAILY [facility] Administration Heparin Sodium (Porcine) 5,000 unit 04/04/25 21:00 Heparin Sodium,Porcine 5,000 Unit/Ml 1 Ml Vial SQ Q12HR [facility] Levothyroxine Sodium 112 mcg 04/04/25 06:30 04/04/25 06:27 Levothyroxine 112 Mcg Tab PO 112 mcg DAILY@0630 [facility] Administration Metoprolol Tartrate 25 mg 04/03/25 21:00 04/04/25 08:51 Metoprolol Tartrate 25 Mg Tab PO 25 mg BID [facility] Administration Naloxone HCl 0.2 mg 04/03/25 17:00 Naloxone 0.4 Mg/Ml 1 Ml Vial IV Q2M PRN Opioid Reversal Ondansetron HCl 4 mg 04/03/25 17:25 Ondansetron 4 Mg/2 Ml Vial IVP Q8H PRN NAUSEA/VOMITING Pravastatin Sodium 20 mg 04/03/25 21:00 04/04/25 01:26 Pravastatin Sodium 20 Mg Tab PO 20 mg HS [facility] Administration Temazepam 15 mg 04/03/25 18:10 Temazepam 15 Mg Cap PO HS PRN sleep Intake and Output 04/03/25 04/04/25 04/04/25 22:59 06:59 14:59 Intake Total 10.083 Balance 10.083 Intake: Intake, IV Titration 10.083 Amount Diltiazem 125 mg In 10.083 Dextrose 5% in Water 100 ml @ 5 MG/HR 5 mls/hr IV .Q24H [facility] Rx#:[id number] 04/04/25 05:27 04/04/25 05:27
[2025-04-04] MEDS: HEPARIN SODIUM,PORCINE 5,000 UNIT/ML 1 ML VIAL SQ SCH (21:05)
--- NOTE | 2025-04-04 21:50 | P.CNPUL ---
History of Present Illness Consult date: 04/04/25 Reason for consult: pleural effusion History of present illness: 85-year-old female patient, who is post laparoscopic appendectomy that was perfo rmed on 03/25/2025, discharged home to be readmitted to the hospital because of worsening shortness of breath. The patient postop developed a drop in hemoglobin and a CAT scan of the abdomen and pelvis was ordered and showed a right peritoneal hematoma attributed to some bleeding following the surgery. There was no acute extravasation. The patient did require a unit of packed RBC and ultimately the patient was able to tolerate diet and she was having bowel movements and the patient was discharged home on oral Levaquin and Flagyl. The patient was readmitted to the hospital for worsening shortness of breath. She is known to have hypertension, hyperlipidemia, hypothyroidism and paroxysmal a trial fibrillation. Xarelto was held at the time of surgery and restarted on an outpatient basis. Reviewed the follow-up CAT scan of the chest that was done on 03/28/2025 and the patient was already developing a small right-sided pleural effusion in addition to the peritoneal hematoma that was discussed above. Follow-up chest x-ray done today in the emergency department shows a right-sided pleural effusion and ultrasound of the chest was also done confirming the findings and the patient was found to have a 9 cm pocket size pleural fluid on the right. Marking was performed. Nevertheless, thoracentesis was not performed today as the patient was taking anticoagulation on outpatient basis an d the patient's anticoagulation is currently on hold. She is currently on room air oxygen. Her current cardiac rhythm is A-fib with RVR. The patient was seen by cardiology, initially started on Cardizem drip and this was ultimately discontinued and the patient is currently on metoprolol 25 mg p.o. twice a day and her heart rate is under better control. Afebrile. No chest pain. No pleurisy. No hemoptysis. Review of Systems 14 point review of system was done and the positive findings were mentioned above history of present illness Past Medical History Past Medical History: Atrial Fibrillation, Cancer, Deep Vein Thrombosis (DVT), Hyperlipidemia, Hypertension, Osteoarthritis (OA), Thyroid Disorder Additional Past Medical History / Comment(s): HX DVT 2008., chronic UTI's, varicose veins, constipation, hx "ischemic colitis" 2010, skin cancer, SPINAL STENOSIS, NT left LEG/FOOT- USES WALKER., collapsed tendon left foot, duodenal ulcer, episode of a-fib after knee replacement History of Any Multi-Drug Resistant Organisms: None Reported Past Surgical History: Bladder Surgery, Cholecystectomy, Hysterectomy, Joint Replacement, Orthopedic Surgery Additional Past Surgical History / Comment(s): Parathyroidectomy, Bladder suspension, smita and screws right femur. Cortisone injection, pain clinic procedures. rt hip replacement, rt knee replacement 06/2021, lakisha cataracts., left knee replaced 2021, colonoscopy recently Past Anesthesia/Blood Transfusion Reactions: No Reported Reaction Past Psychological History: Depression Smoking Status: Never smoker Past Alcohol Use History: None Reported Past Drug Use History: None Reported - Past Family History Father Family Medical History: Cancer Additional Family Medical History / Comment(s): LUNG CANCER Mother Family Medical History: Cancer Additional Family Medical History / Comment(s): Breast Cancer. Medications and Allergies Home Medications Medication Instructions Recorded Confirmed Type Metoprolol Tartrate [Lopressor] 25 mg PO BID 09/08/18 04/04/25 History DULoxetine HCL [Cymbalta] 60 mg PO DAILY 11/19/20 04/04/25 History Pravastatin Sodium [Pravachol] 20 mg PO HS 01/10/21 04/04/25 History Losartan Potassium [Cozaar] 100 mg PO DAILY 06/25/21 04/04/25 History busPIRone HCL 10 mg PO Q12H 05/30/22 04/04/25 History DULoxetine HCL [Cymbalta] 30 mg PO DAILY 08/08/22 04/04/25 History Levothyroxine Sodium [Synthroid] 112 mcg PO DAILY 08/08/22 04/04/25 History Pantoprazole [Protonix] 40 mg PO DAILY 08/08/22 04/04/25 History Clobetasol Propionate [Clobex 1 applic TOPICAL HS PRN 03/24/25 04/04/25 History 0.05% Soln] Ketoconazole 2% Shampoo [Nizoral] 1 applic TOPICAL Q3D PRN 03/24/25 04/04/25 History Ramelteon [Rozerem] 8 mg PO HS PRN 03/24/25 04/04/25 History Rivaroxaban [Xarelto] 20 mg PO DAILY 03/24/25 04/04/25 History fluocinolone acetonide oiL 2 - 3 drops BOTH EARS BID PRN 03/24/25 04/04/25 History [Dermotic] Acetaminophen Tab [Tylenol Tab] 650 mg PO Q4H PRN #30 tablet 03/30/25 04/04/25 Rx Furosemide [Lasix] 20 mg PO DAILY #90 tab 03/30/25 04/04/25 Rx Levofloxacin [Levaquin] 500 mg PO DAILY 10 Days #10 tab 03/30/25 04/04/25 Rx metroNIDAZOLE [Flagyl] 500 mg PO TID 10 Days #30 tab 03/30/25 04/04/25 Rx Allergies Allergy/AdvReac Type Severity Reaction Status Date / Time Sulfa (Sulfonamide Allergy Rash/Hives Verified 04/04/25 10:34 Antibiotics) Physical Exam Vitals: Vital Signs Temp Pulse Resp BP Pulse Ox 04/04/25 10:00 64 16 145/67 94 L 04/04/25 08:53 86 18 141/62 93 L 04/04/25 06:00 67 17 120/52 93 L 04/04/25 05:00 64 18 104/49 93 L 04/04/25 04:00 63 19 109/54 93 L 04/04/25 03:00 62 18 103/51 92 L 04/04/25 00:00 84 18 118/53 93 L 04/03/25 23:00 85 19 113/59 93 L 04/03/25 20:53 80 18 139/60 97 04/03/25 19:31 82 16 141/58 98 04/03/25 18:00 96 16 129/70 98 04/03/25 16:30 140 H 18 135/77 97 04/03/25 15:30 160 H 18 130/77 97 04/03/25 14:54 98 04/03/25 14:50 98.1 F 146 H 18 145/91 95 Intake and Output 04/03/25 04/04/25 04/04/25 22:59 06:59 14:59 Intake Total 10.083 Balance 10.083 Intake: Intake, IV Titration 10.083 Amount Diltiazem 125 mg In 10.083 Dextrose 5% in Water 100 ml @ 5 MG/HR 5 mls/hr IV .Q24H [facility] Rx#:[id number] The patient appeared well nourished and normally developed. Vital signs as documented. The patient is currently on room air oxygen. Head exam is unremarkable. No scleral icterus or corneal arcus noted. Neck is without jugular venous distension, thyromegaly, or carotid bruits. Carotid upstrokes are brisk bilaterally. Lungs revealed diminished breath sound right lung base along with dullness to percussion consistent with pleural effusion Cardiac exam reveals the PMI to be normally sized and situated. Irregular consistent with atrial fibrillation. First and second heart sounds normal. No murmurs, rubs or gallops. Abdominal exam reveals normal bowel sounds, no masses, no organomegaly and no aortic enlargement. Extremities are nonedematous and both femoral and pedal pulses are normal. Examination of the skin revealed no evidence of significant rashes, suspicious appearing nevi or other concerning lesions. Neurologically, the patient is awake and alert and the patient does not have any focal neurological deficit. Cranial nerves are essentially intact. Results - Laboratory Findings CBC and BMP: 04/04/25 05:27 04/04/25 05:27 PT/INR, D-dimer PT 11.8 sec (10.0-12.5) 04/03/25 15:33 INR 1.1 (<1.2) 04/03/25 15:33 Abnormal lab findings: Abnormal Labs 04/03/25 04/03/25 04/03/25 15:33 15:33 15:33 WBC 16.04 H RBC 3.53 L Hgb 10.2 L Hct 31.0 L MPV Immature Gran # 1.23 H Neutrophils # 11.42 H Monocytes # 1.61 H Eosinophils # APTT 21.6 L Sodium 134 L Potassium 2.7 L* Glucose 127 H Calcium Magnesium 1.3 L Total Bilirubin 1.4 H AST 45 H Total Protein 5.8 L Albumin 2.7 L TSH 12.300 H Free T3 pg/mL 1.50 L 04/04/25 04/04/25 05:27 05:27 WBC 16.79 H RBC 3.35 L Hgb 9.6 L Hct 29.8 L MPV 9.0 L Immature Gran # 1.36 H Neutrophils # 11.10 H Monocytes # 2.10 H Eosinophils # 0.42 H APTT Sodium 134 L Potassium 3.3 L Glucose 111 H Calcium 8.3 L Magnesium Total Bilirubin AST 44 H Total Protein 5.6 L Albumin 2.5 L TSH Free T3 pg/mL - Diagnostic Findings Chest x-ray: image reviewed Assessment and Plan Plan: Right-sided pleural effusion, moderate size with secondary shortness of breath. This pleural effusion was initially noted on a CAT scan of the abdomen and pelvis that was done on 03/28/2025 to monitor the patient's postop drop in the hemoglobin. Subsequent chest x-ray from 03/30/2025 showed a right-sided pleural effusion and obviously the patient has become symptomatic postdischarge. Atrial fibrillation with RVR, rate is controlled and the patient is currently off anticoagulants in preparation for thoracentesis and should be kept off anticoagulation tentative thoracentesis completed. Rate is controlled with metoprolol. Acute appendicitis and the patient is post laparoscopic appendectomy. Surgery was performed on 03/25/2025. Right peritoneal hematoma due to postoperative bleeding following surgery, hemoglobin remained stable. Hypothyroidism Hypertension Hyperlipidemia Skin cancer Previous history of DVT Osteoarthritis, and the patient has undergone a right hip replacement, right knee replacement and the patient is receiving chronic pain management through pain management services. Spinal stenosis History of duodenal ulcer History of parathyroidectomy History of chronic recurrent UTIs Previous history of ischemic colitis back in 2010 Mild to moderate aortic and mitral valve regurgitation with a preserved LV function with an ejection fraction of 55% based on echocardiogram from January 2024 Plan Keep the patient off Xarelto Diagnostic and therapeutic thoracentesis to be done tomorrow while the patient have Xarelto for more than 24 hours Cardiology to for management of atrial fibrillation. Patient is currently on metoprolol with a controlled rate Hemoglobin is stable No active GI issues following appendectomy Time with Patient: Greater than 30
[2025-04-05 08:11] LABS: HCT 30.3 % (37.2-46.3); HGB 9.8 g/dL (12.0-15.0); MCH 29.0 pg (27.0-32.0); MCHC 32.3 g/dL (32.0-37.0); MCV 89.6 fL (80.0-97.0); Platelet Count 434 10*3/uL (140-440); RBC 3.38 10*6/uL (4.10-5.20); RDW 16.4 % (11.5-14.5); WBC 14.92 10*3/uL (4.50-10.00)
[2025-04-05 08:32] LABS: ALT 20 U/L (4-34); AST 45 U/L (14-36); African American GFR (CKD) 67 (>60 ml/min/1.73 sqM); Albumin 2.6 g/dL (3.5-5.0); Alkaline Phosphatase 74 U/L (38-126); Anion Gap 4 mmol/L; Blood Urea Nitrogen 18 mg/dL (7-17); Calcium 8.4 mg/dL (8.4-10.2); Carbon Dioxide 28 mmol/L (22-30); Chloride 103 mmol/L (98-107); Glucose 98 mg/dL (74-99); Magnesium 1.9 mg/dL (1.6-2.3); Non-African American GFR(CKD) 58 (>60 ml/min/1.73 sqM); Potassium 3.9 mmol/L (3.5-5.1); Sodium 135 mmol/L (137-145); Total Protein 5.5 g/dL (6.3-8.2)
[2025-04-05 08:54] LABS: Anisocytosis (M) Present; Eosinophils # (M) 0.30 k/uL (0-0.7); Lymphocytes # (M) 2.24 k/uL (1.0-4.8); Metamyelocytes # (M) 0.15 k/uL (0); Monocytes # (M) 1.19 k/uL (0-1.0); Myelocytes # (M) 0.30 k/uL (0); Neutrophils # (M) 10.89 k/uL (1.3-7.7); Neutrophils % (M) 73 %; Poikilocytosis (M) Present; Total Cells Counted 200
[2025-04-05] MEDS: ACETAMINOPHEN TAB 325 MG TAB PO PRN (10:54)
--- NOTE | 2025-04-05 11:49 | P.PN ---
Subjective Progress Note Date: 04/05/25 Patient is a 85 year old female with atrial fibrillation, DVT, hyperlipidemia, hypertension, osteoarthritis, hypothyroidism, cholecystectomy, hysterectomy status post appendectomy who presents with palpitations and shortness of breath. Symptoms occur with exertion and have been going on for over a week. She was discharged from this hospital 03/30/2025 where she had a laparoscopic appendectomy. Currently she is denying chest pain, cough. She is taken 1 dose of Xarelto since her discharge. She does endorse nausea and vomiting with a decreased appetite over the last few days. Her last bowel movement was 2 days ago. No recent fever or chills. She does endorse some mild abdominal pain which she feels is from her recent surgery. No other complaints at this time. ER findings: LabsWBC 16, hemoglobin 10.2, APTT 21.6, sodium 134, potassium 2.7, glucose 127, magnesium 1.3, total bilirubin 1.4, AST 45, troponin 0.022, proBNP 1300, TSH 12.3, free T4 1.09 Chest x-ray with findings of right subpulmonic effusion EKG independently interpreted as A-fib with RVR, rate 143, QTc 329. Lateral ST depression. 04/04/2025no acute events overnight. Denies chest pain or shortness of breath. Nausea improved. Possible thoracentesis 04/05/2025no evidence overnight. No complaints of shortness of breath or chest pain. Possible thoracentesis today. Review of systems: Pertinent positives and negatives as discussed in HPI, a complete review of systems was performed and all other systems are negative. Vitals: Signs Reviewed PHYSICAL EXAMINATION: VITAL SIGNS: Reviewed GENERAL: Resting comfortably in bed. Obese. CARDIOVASCULAR: S1 and S2 present. No murmurs, rubs, or gallops. PULMONARY: Chest is clear to auscultation, no wheezing, rhonchi, or crackles. ABDOMEN: Soft, mild generalized tenderness, nondistended. No palpable organomegaly. NEUROLOGICAL: Alert and oriented x 3. Gross neurological examination with no apparent focal deficits. EXTREMITIES: No pedal edema. Today significant findings: LabsWBC 14.9, sodium 135, potassium 3.9, BUN 18 No new imaging Assessment/Plan: Patient is a 85 year old female with atrial fibrillation, DVT, hyperlipidemia, hypertension, osteoarthritis, hypothyroidism, cholecystectomy, hysterectomy, status post appendectomy who presents with palpitations and shortness of breath. Spoke with the ER physician and patient accepted by internal medicine for treatment. #Paroxysmal Atrial fibrillation, with RVR, now rate controlled #Dyspnea #Nausea vomiting #Recent Appendectomy #Severe hypokalemia, improving #Hypomagnesemia, resolved #Leukocytosis, likely reactive # Right-sided pleural effusion Initial potassium 2.7, magnesium 1.3 Chest x-ray with findings of right subpulmonic effusion Ultrasound chest right-sided pleural effusion, pocket size 9.3 cm Discontinue Cardizem drip Continue metoprolol 25 mg p.o. twice daily Holding Xarelto for possible procedure, resume after procedure Begin Zofran 4 mg every 8 hours as needed Given 1 g magnesium sulfate in ER, and later 3 g of magnesium sulfate Continuous cardiac monitoring Monitor CBC, CMP and magnesium Pulmonology for thoracentesis Cardiology note reviewed, recommendations appreciated #Elevated TSH #Hypothyroidism Possible lab error versus euthyroid sick syndrome Initial TSH 12.3, free T4 1.09. TSH 0.08 earlier this month Resume Synthroid Monitor symptoms Chronic medical conditions: #Hyperlipidemia #Hypertension #Anxiety/depression #Insomnia Resume home medications once reconciled DVT prophylaxis: Hold Xarelto CODE STATUS: FULL CODE Anticipated discharge date and place: Home, today or tomorrow Satnam Maloney MD Internal Medicine Resident, PGY1 Dictation was produced using [employer] dictation software. please excuse any grammatical, word or spelling errors. I have seen and evaluated the patient today. Discussed with the resident and agree with the residents finding and plan as documented in the resident's note. Changes highlighted in blue font. Objective - Vital Signs Vital signs: Vital Signs Temp 96.4 F L 04/05/25 00:15 Pulse 90 04/05/25 03:57 Resp 20 04/05/25 03:57 BP 156/74 04/05/25 03:57 Pulse Ox 94 L 04/05/25 03:57 FiO2 Intake & Output 04/04/25 04/05/25 04/05/25 18:59 06:59 18:59 Output Total 850 Balance -850 Weight 99.518 kg Output: Urine 850 Other: Voiding Method External Catheter - Labs CBC & Chem 7: 04/05/25 07:18 04/05/25 07:18 Labs: Abnormal Lab Results - Last 24 Hours (Table) 04/04/25 Range/Units 05:27 Neutrophils # 11.10 H (1.80-7.70) 10*3/uL Monocytes # 2.10 H (0.20-1.00) 10*3/uL Eosinophils # 0.42 H (0.04-0.35) 10*3/uL
--- NOTE | 2025-04-05 15:06 | XR ---
EXAMINATION TYPE: XR chest 1V DATE OF EXAM: 04/05/2025 2:58 PM COMPARISON: 04/03/2025 CLINICAL INDICATION: Female, 85 years old with history of post thoracentesis, TECHNIQUE: XR chest 1V view(s) obtained. FINDINGS: The heart size is normal. The pulmonary vasculature is normal. The lungs are clear. There is elevation of the right diaphragm. Small right pleural effusion may be present. Minimal atele ctasis may be of the mid right lung. Degenerative changes are at the right shoulder. IMPRESSION: 1. Small right pleural effusion with mild atelectasis right lung base. Findings are improved from [facility], , 04/05/2025 3:04 PM
[2025-04-05] MEDS: RIVAROXABAN 15 MG TAB PO SCH (17:04)
[2025-04-05] MEDS ORDERED: RIVAROXABAN 20 MG TAB PO SCH (17:30)
[2025-04-05] MEDS: BACLOFEN 10 MG TAB PO PRN (17:55)
[2025-04-05] MEDS: HYDROcodone/APAP 5-325MG 1 EACH TAB PO PRN (20:14)
--- NOTE | 2025-04-05 20:23 | P.PN ---
Subjective Progress Note Date: 04/05/25 85-year-old female patient, who is post laparoscopic appendectomy that was performed on 03/25/2025, discharged home to be readmitted to the hospital because of worsening shortness of breath. The patient postop developed a drop in hemoglobin and a CAT scan of the abdomen and pelvis was ordered and showed a right peritoneal hematoma attributed to some bleeding following the surgery. There was no acute extravasation. The patient did require a unit of packed RBC and ultimately the patient was able to tolerate diet and she was having bowel movements and the patient was discharged home on oral Levaquin and Flagyl. The patient was readmitted to the hospital for worsening shortness of breath. She is known to have hypertension, hyperlipidemia, hypothyroidism and paroxysmal atrial fibrillation. Xarelto was held at the time of surgery and restarted on an outpatient basis. Reviewed the follow-up CAT scan of the chest that was done on 03/28/2025 and the patient was already developing a small right-sided pleural effusion in addition to the peritoneal hematoma that was discussed above. Follow-up chest x-ray done today in the emergency department shows a right-sided pleural effusion and ultrasound of the chest was also done confirming the findings and the patient was found to have a 9 cm pocket size pleural fluid on the right. Marking was performed. Nevertheless, thoracentesis was not perfo rmed today as the patient was taking anticoagulation on outpatient basis and the patient's anticoagulation is currently on hold. She is currently on room air oxygen. Her current cardiac rhythm is A-fib with RVR. The patient was seen by cardiology, initially started on Cardizem drip and this was ultimately discontinued and the patient is currently on metoprolol 25 mg p.o. twice a day and her heart rate is under better control. Afebrile. No chest pain. No pleurisy. No hemoptysis. 04/05/2025, the patient is being seen for a follow-up. On today's evaluation, the patient is essentially the same. Continues to have some shortness of breath. Based on that, I performed a bedside thoracentesis on the patient and a total of 900 cc of pleural fluid was aspirated from the right hemithorax without any complication. Follow-up chest x-ray showed no evidence of any pneumothorax and there was improvement in the aeration in the right lung base. There is some residual small right-sided pleural effusion and some mild atelectatic change in the right lung base. Overall findings have essentially improved. The patient did experience some pleuritic chest pain following the thoracentesis which ultimately recovered. She does have some chronic elevation of the right hemidiaphragm. The pleural fluid will be sent for analysis. The white cell count of 14.9. Hemoglobin 9.8 and a platelet count of 434. Electrolytes are within normal limits. BUN is 18 with a creatinine of 0.9. The patient is going to be restarted back on Xarelto postthoracentesis. Objective - Vital Signs Vital signs: Vital Signs Temp 98.2 F 04/05/25 11:45 Pulse 69 04/05/25 11:45 Resp 18 04/05/25 11:45 BP 116/78 04/05/25 11:45 Pulse Ox 94 L 04/05/25 11:45 FiO2 Intake & Output 04/04/25 04/05/25 04/05/25 18:59 06:59 18:59 Output Total 850 Balance -850 Weight 99.518 kg Output: Urine 850 Other: Voiding Method External Catheter External Catheter - Exam The patient appeared well nourished and normally developed. Vital signs as documented. The patient is currently on room air oxygen. The patient is morbidly obese with a BMI of 41.5 Head exam is unremarkable. No scleral icterus or corneal arcus noted. Neck is without jugular venous distension, thyromegaly, or carotid bruits. Carotid upstrokes are brisk bilaterally. Lungs revealed diminished breath sound right lung base along with dullness to percussion consistent with pleural effusion, and air entry in the right lung base improved following the thoracentesis Cardiac exam reveals the PMI to be normally sized and situated. Irregular consistent with atrial fibrillation. First and second heart sounds normal. No murmurs, rubs or gallops. Abdominal exam reveals normal bowel sounds, no masses, no organomegaly and no aortic enlargement. Extremities are nonedematous and both femoral and pedal pulses are normal. Examination of the skin revealed no evidence of significant rashes, suspicious appearing nevi or other concerning lesions. Neurologically, the patient is awake and alert and the patient does not have any focal neurological deficit. Cranial nerves are essentially intact. - Labs CBC & Chem 7: 04/05/25 07:18 04/05/25 07:18 Labs: Abnormal Lab Results - Last 24 Hours (Table) 04/05/25 04/05/25 Range/Units 07:18 07:18 WBC 14.92 H (4.50-10.00) 10*3/uL RBC 3.38 L (4.10-5.20) 10*6/uL Hgb 9.8 L (12.0-15.0) g/dL Hct 30.3 L (37.2-46.3) % MPV 9.0 L (9.5-12.2) fL Immature Gran # 0.92 H (0.00-0.04) 10*3/uL Neutrophils # (Manual) 10.89 H (1.3-7.7) k/uL Monocytes # (Manual) 1.19 H (0-1.0) k/uL Metamyelocytes # (Man) 0.15 H (0) k/uL Myelocytes # (Manual) 0.30 H (0) k/uL Sodium 135 L (137-145) mmol/L BUN 18 H (7-17) mg/dL AST 45 H (14-36) U/L Total Protein 5.5 L (6.3-8.2) g/dL Albumin 2.6 L (3.5-5.0) g/dL Assessment and Plan Plan: Right-sided pleural effusion, moderate size with secondary shortness of breath. This pleural effusion was initially noted on a CAT scan of the abdomen and pelvis that was done on 03/28/2025 to monitor the patient's postop drop in the hemoglobin. Subsequent chest x-ray from 03/30/2025 showed a right-sided pleural effusion and obviously the patient has become symptomatic postdischarge. Thoracentesis was performed on 04/05/2025 and a total of 900 cc of pleural fluid was aspirated without any complication. Subsequent chest x-ray showed no evidence of any pneumothorax. Atrial fibrillation with RVR, rate is controlled and the patient is on metoprolol. Patient is also on anticoagulants with Xarelto. Acute appendicitis and the patient is post laparoscopic appendectomy. Surgery was performed on 03/25/2025. Right peritoneal hematoma due to postoperative bleeding following surgery, hemoglobin remained stable. Hypothyroidism Hypertension Hyperlipidemia Skin cancer Previous history of DVT Osteoarthritis, and the patient has undergone a right hip replacement, right knee replacement and the patient is receiving chronic pain management through pain management services. Spinal stenosis History of duodenal ulcer History of parathyroidectomy History of chronic recurrent UTIs Previous history of ischemic colitis back in 2010 Mild to moderate aortic and mitral valve regurgitation with a preserved LV function with an ejection fraction of 55% based on echocardiogram from January 2024 Plan Thoracentesis was completed and the pleural fluid will be sent for analysis Restart anticoagulation with Xarelto Cardiology to for management of atrial fibrillation. Patient is currently on metoprolol with a controlled rate Hemoglobin is stable No active GI issues following appendectomy Time with Patient: Greater than 30
--- NOTE | 2025-04-05 20:24 | P.PCN ---
Date of Procedure: 04/05/25 Preoperative Diagnosis: Pleural effusion, right Postoperative Diagnosis: Pleural effusion, right Procedure(s) Performed: Thoracentesis, right Anesthesia: local Surgeon: Tani Almazan Estimated Blood Loss (ml): 0 IV fluids (ml): 0 Pathology: other Condition: stable Disposition: floor Operative Findings: The procedure was done with ultrasound markings. Ultrasound marking of the right chest was obtained. A time out was performed and the chest x-ray was reviewed, the appropriate side was confirmed and marked. My hands were washed immediately prior to the procedure. I wore a surgical cap, mask with protective eyewear, sterile gown and sterile gloves throughout the procedure. The patient was prepped and draped in a sterile manner using chlorhexidine scrub after the appropriate level was percussed and confirmed by ultrasound. 1% lidocaine was used to anesthesize the skin, subcutaneous tissue, superior aspect of the rib periosteum and parietal pleura. A finder needle was then introduced over the superior aspect of the rib to locate the pleural fluid; 2colored fluid was aspirated at a depth of approximately 2 cm. A 10-blade scalpel was used to william the skin at the insertion site. The [id number] needle was then introduced through the skin incision into the pleural space using negative aspiration pressure and the red colometric indicator to confirm appropriate positioning of the needle. The thoracentesis catheter was then threaded without difficulty. 900 ml of turbid colored fluid was removed without difficulty. The catheter was then removed. No immediate complications were noted during the procedure. A post-procedure chest x-ray is pending at the time of this note. The fluid will be sent for studies. Estimated blood loss is 0cc
[2025-04-06 03:07] LABS: Glucose, BF Source Pleural Fluid; Glucose, Body Fluid 103 mg/dL; LDH, Body Fluid Source Pleural Fluid; T. Protein, Body Fluid Source Pleural Fluid; Total Protein, Body Fluid 3590 mg/dL
[2025-04-06 04:55] LABS: Appearance,BF Cloudy (Clear)
[2025-04-06 08:06] LABS: Basophils # (A) 0.09 10*3/uL (0.00-0.10); Basophils % (A) 0.5 %; Eosinophils # (A) 0.06 10*3/uL (0.04-0.35); Eosinophils % (A) 0.3 %; HCT 32.7 % (37.2-46.3); HGB 10.8 g/dL (12.0-15.0); Lymphocytes # (A) 1.60 10*3/uL (0.90-5.00); Lymphocytes % (A) 8.5 %; MCH 29.6 pg (27.0-32.0); MCHC 33.0 g/dL (32.0-37.0); MCV 89.6 fL (80.0-97.0); Monocytes # (A) 2.33 10*3/uL (0.20-1.00); Monocytes % (A) 12.4 %; Neutrophils # (A) 14.05 10*3/uL (1.80-7.70); Neutrophils % (A) 75.0 %; Platelet Count 436 10*3/uL (140-440); RBC 3.65 10*6/uL (4.10-5.20); RDW 16.4 % (11.5-14.5); WBC 18.74 10*3/uL (4.50-10.00)
[2025-04-06 08:33] LABS: ALT 16 U/L (4-34); African American GFR (CKD) 72 (>60 ml/min/1.73 sqM); Albumin 2.5 g/dL (3.5-5.0); Anion Gap 4 mmol/L; Blood Urea Nitrogen 21 mg/dL (7-17); Calcium 8.2 mg/dL (8.4-10.2); Carbon Dioxide 26 mmol/L (22-30); Chloride 104 mmol/L (98-107); Glucose 157 mg/dL (74-99); Non-African American GFR(CKD) 62 (>60 ml/min/1.73 sqM); Sodium 134 mmol/L (137-145); Total Protein 5.7 g/dL (6.3-8.2)
[2025-04-06 08:37] LABS: AST 36 U/L (14-36); Alkaline Phosphatase 64 U/L (38-126); Magnesium 1.8 mg/dL (1.6-2.3); Potassium 4.3 mmol/L (3.5-5.1)
--- NOTE | 2025-04-06 11:50 | P.PN ---
Subjective Progress Note Date: 04/06/25 Patient is a 85 year old female with atrial fibrillation, DVT, hyperlipidemia, hypertension, osteoarthritis, hypothyroidism, cholecystectomy, hysterectomy status post appendectomy who presents with palpitations and shortness of breath. Symptoms occur with exertion and have been going on for over a week. She was discharged from this hospital 03/30/2025 where she had a laparoscopic appendectomy. Currently she is denying chest pain, cough. She is taken 1 dose of Xarelto since her discharge. She does endorse nausea and vomiting with a decreased appetite over the last few days. Her last bowel movement was 2 days ago. No recent fever or chills. She does endorse some mild abdominal pain which she feels is from her recent surgery. No other complaints at this time. ER findings: LabsWBC 16, hemoglobin 10.2, APTT 21.6, sodium 134, potassium 2.7, glucose 127, magnesium 1.3, total bilirubin 1.4, AST 45, troponin 0.022, proBNP 1300, TSH 12.3, free T4 1.09 Chest x-ray with findings of right subpulmonic effusion EKG independently interpreted as A-fib with RVR, rate 143, QTc 329. Lateral ST depression. 04/04/2025no acute events overnight. Denies chest pain or shortness of breath. Nausea improved. Possible thoracentesis 04/05/2025no evidence overnight. No complaints of shortness of breath or chest pain. Possible thoracentesis today. 04/06/2025no evidence overnight. No complaints of shortness of breath or chest pain. Thoracentesis yesterday Review of systems: Pertinent positives and negatives as discussed in HPI, a complete review of systems was performed and all other systems are negative. Vitals: Signs Reviewed PHYSICAL EXAMINATION: VITAL SIGNS: Reviewed GENERAL: Resting comfortably in bed. Obese. CARDIOVASCULAR: S1 and S2 present. No murmurs, rubs, or gallops. PULMONARY: Chest is clear to auscultation, no wheezing, rhonchi, or crackles. ABDOMEN: Soft, mild generalized tenderness, nondistended. No palpable organomegaly. NEUROLOGICAL: Alert and oriented x 3. Gross neurological examination with no apparent focal deficits. EXTREMITIES: No pedal edema. Today significant findings: LabsWBC 18.7, hemoglobin 10.8, sodium 134, potassium 4.3, BUN 21, creatinine 0.86, glucose 157, LDH 550. Fluid cytology appearance cloudy, WBC 2281, total protein 3590, LDH 455 Chest x-ray small right pleural effusion with mild atelectasis at lung base, improved from comparison Assessment/Plan: Patient is a 85 year old female with atrial fibrillation, DVT, hyperlipidemia, hypertension, osteoarthritis, hypothyroidism, cholecystectomy, hysterectomy, status post appendectomy who presents with palpitations and shortness of breath. Spoke with the ER physician and patient accepted by internal medicine for treatment. #Paroxysmal Atrial fibrillation, with RVR, now rate controlled #Dyspnea #Recent Appendectomy #Leukocytosis, likely reactive # Right-sided exudative pleural effusion, s/p thoracentesis 900 mL removed Chest x-ray with findings of right subpulmonic effusion Ultrasound chest right-sided pleural effusion, pocket size 9.3 cm Discontinue Cardizem drip Continue metoprolol 25 mg p.o. twice daily Resume Xarelto Continuous cardiac monitoring Fluid cultures ordered Repeat EKG ordered Monitor CBC, CMP and magnesium Pulmonology following #Elevated TSH #Hypothyroidism Possible lab error versus euthyroid sick syndrome Initial TSH 12.3, free T4 1.09. TSH 0.08 earlier this month Resume Synthroid Monitor symptoms #Nausea vomiting, resolved #Severe hypokalemia, resolved #Hypomagnesemia, resolved Continue Zofran 4 mg every 8 hours as needed Given 1 g magnesium sulfate in ER, and later 3 g of magnesium sulfate Chronic medical conditions: #Hyperlipidemia #Hypertension #Anxiety/depression #Insomnia Resume home medications once reconciled DVT prophylaxis: Continue Xarelto CODE STATUS: FULL CODE Anticipated discharge date and place: Subacute rehab Satnam Maloney MD Internal Medicine Resident, PGY1 Dictation was produced using [employer] dictation software. please excuse any grammatical, word or spelling errors. I have seen and evaluated the patient today. Discussed with the resident and agree with the residents finding and plan as documented in the resident's note. Changes highlighted in blue font. Objective - Vital Signs Vital signs: Vital Signs Temp 98.3 F 04/06/25 04:00 Pulse 102 H 04/06/25 04:00 Resp 18 04/06/25 04:00 BP 121/76 04/06/25 04:00 Pulse Ox 91 L 04/06/25 04:00 FiO2 Intake & Output 04/05/25 04/06/2525 18:59 06:59 18:59 Intake Total 20 Output Total 1000 Balance -1000 20 Intake: IV 20 0.9 20 Output: Chest Tube Drainage 1000 Chest Tube Posterior 1000 Chest Other: Voiding Method External Catheter External Catheter # Voids 300 - Labs CBC & Chem 7: 04/06/25 07:55 04/06/25 07:55 Labs: Abnormal Lab Results - Last 24 Hours (Table) 04/05/25 04/05/25 04/05/25 Range/Units 07:18 07:18 15:00 WBC 14.92 H (4.50-10.00) 10*3/uL RBC 3.38 L (4.10-5.20) 10*6/uL Hgb 9.8 L (12.0-15.0) g/dL Hct 30.3 L (37.2-46.3) % MPV 9.0 L (9.5-12.2) fL Immature Gran # 0.92 H (0.00-0.04) 10*3/uL Neutrophils # (Manual) 10.89 H (1.3-7.7) k/uL Monocytes # (Manual) 1.19 H (0-1.0) k/uL Metamyelocytes # (Man) 0.15 H (0) k/uL Myelocytes # (Manual) 0.30 H (0) k/uL Sodium 135 L (137-145) mmol/L BUN 18 H (7-17) mg/dL AST 45 H (14-36) U/L Total Protein 5.5 L (6.3-8.2) g/dL Albumin 2.6 L (3.5-5.0) g/dL Fluid Appearance Cloudy A (Clear)
--- NOTE | 2025-04-06 13:08 | XR ---
EXAMINATION TYPE: XR chest 1V DATE OF EXAM: 04/06/2025 12:45 PM COMPARISON: 04/05/2025 CLINICAL INDICATION: Female, 85 years old with history of chf, TECHNIQUE: XR chest 1V view(s) obtained. FINDINGS: The heart size is normal. The pulmonary vasculature is normal. The lungs are clear. There is elevation of the right diaphragm. Mild infiltrates in the right midlun g may be some atelectasis. IMPRESSION: 1. Mild right midlung atelectasis. [facility], , 04/06/2025 1:06 PM
--- NOTE | 2025-04-06 14:16 | CT ---
EXAMINATION TYPE: CT ChestAbdPelvis w con CT DLP: 1839.8 mGycm, Automated exposure control for dose reduction was used. DATE OF EXAM: 04/06/2025 1:58 PM COMPARISON: CT abdomen and pelvis 03/28/2025, 08/08/2022, CTA chest 06/09/2018, 02/22/2018 CLINICAL INDICATION:Female, 85 years old with history of R/o abdominal abscess/hematoma; PHH, R/o abd ominal abscess/hematoma. Abdominal tenderness Technique: Multiple axial images of the chest, abdomen, and pelvis were obtained following the intrav enous administration of 100 mL Isovue-300. Two-dimensional coronal and sagittal reconstructions were obtained. Findings: CHEST: LUNGS/ PLEURA: No pneumothorax. Similar small right pleural effusion with associated atelectasis. Lef t lower lobe and right upper lobe linear atelectasis. No suspicious pulmonary nodule or mass. Elevati on of the right hemidiaphragm. AIRWAY: Patent and unremarkable.. HEART: Cardiomegaly is demonstrated.Dense mitral annulus calcifications.. No pericardial effusion. No significant coronary artery calcifications. MEDIASTINUM: No evidence of adenopathy. VASCULATURE: No aortic aneurysm. Mild atherosclerotic calcification of the aorta and its branches. MUSCULOSKELETAL: No acute osseous abnormalities. Bilateral shoulder arthroplasty changes with right g reater than left. SOFT TISSUES/LYMPH NODES: Unremarkable. LOWER NECK: No significant findings. ABDOMEN: ABDOMEN LIVER: Right hepatic lobe 1.7 cm cyst. GALLBLADDER AND BILE DUCTS: The gallbladder is surgically absent. PANCREAS: Unremarkable. SPLEEN: Unremarkable. ADRENAL GLANDS: Unremarkable. KIDNEYS AND URETERS: No evidence of hydronephrosis or renal calculus. The kidneys enhance symmetrical ly. PELVIS BLADDER: Unremarkable REPRODUCTIVE: The uterus is surgically absent. ABDOMEN & PELVIS STOMACH AND BOWEL: Small hiatal hernia, duodenum is unremarkable. Sigmoid diverticulosis without evid ence for acute diverticulitis. No evidence of bowel obstruction. PERITONEUM: No evidence of pneumoperitoneum. Development of the organized fluid collection along the posterior margin of the right hepatic lobe inferiorly measuring grossly 3.4 x 2.6 cm. No internal gas (series 201, image 56). There is some adjacent trace hemoperitoneum identified again along the infer ior right hepatic margin. Similar size of right lower abdomen and pericolic gutter slightly hyperdens e fluid collection measuring 9.1 x 3.2 cm (series 201, image 78). No internal gas. Hyperdensity is de creased from prior exam. Increased size of bilateral posterior pelvis fluid collections with some thi n rim enhancement with the right measuring 5.9 x 2.5 cm and the left measuring 3.4 x 2.8 cm. No inter nal gas identified. VASCULATURE: Mild to moderate atherosclerotic calcifications are present throughout the abdominal aor ta and its branches. No abdominal aortic aneurysm. MUSCULOSKELETAL: No acute osseous abnormalities. Postsurgical changes from right hip arthroplasty. Th ere is adjacent subcutaneous edema/stranding. Chronic compression deformity of the L1 vertebral body with approximately 2 mm retropulsion of 5 mm of height loss centrally. Grade 1 anterolisthesis of L4 on L5 with evidence of pars defects. Schmorl's node involving the inferior endplate of the L3 vertebr al body. LYMPH NODES: No gross evidence for lymphadenopathy. SOFT TISSUE/ABDOMINAL WALL: Similar left mid anterior abdominal wall small subcutis hematoma measurin g up to 2.4 cm. Resolution of previously demonstrated subcutaneous gas. IMPRESSION: 1. There are approximately 4 more organized appearing fluid collections within the abdomen along the right paracolic gutter, right posterior hepatic margin, and posterior pelvis. No internal gas. Some of these collections demonstrate peripheral enhancement. Previously characterized as intraperitoneal hematomas. These again may represent resolving hematomas however underlying superimposed abscess is n ot excluded. The right hepatic margin collection and pelvic collections have mildly increased in size from prior exam. 2. Similar small right pleural effusion with associated atelectasis. 3. Sigmoid diverticulosis without evidence for acute diverticulitis. [facility], , 04/06/2025 2:13 PM
--- NOTE | 2025-04-06 17:56 | P.PN ---
Subjective Progress Note Date: 04/06/25 85-year-old female patient, who is post laparoscopic appendectomy that was performed on 03/25/2025, discharged home to be readmitted to the hospital because of worsening shortness of breath. The patient postop developed a drop in hemoglobin and a CAT scan of the abdomen and pelvis was ordered and showed a right peritoneal hematoma attributed to some bleeding following the surgery. There was no acute extravasation. The patient did require a unit of packed RBC and ultimately the patient was able to tolerate diet and she was having bowel movements and the patient was discharged home on oral Levaquin and Flagyl. The patient was readmitted to the hospital for worsening shortness of breath. She is known to have hypertension, hyperlipidemia, hypothyroidism and paroxysmal atrial fibrillation. Xarelto was held at the time of surgery and restarted on an outpatient basis. Reviewed the follow-up CAT scan of the chest that was done on 03/28/2025 and the patient was already developing a small right-sided pleural effusion in addition to the peritoneal hematoma that was discussed above. Follow-up chest x-ray done today in the emergency department shows a right-sided pleural effusion and ultrasound of the chest was also done confirming the findings and the patient was found to have a 9 cm pocket size pleural fluid on the right. Marking was performed. Nevertheless, thoracentesis was not perfo rmed today as the patient was taking anticoagulation on outpatient basis and the patient's anticoagulation is currently on hold. She is currently on room air oxygen. Her current cardiac rhythm is A-fib with RVR. The patient was seen by cardiology, initially started on Cardizem drip and this was ultimately discontinued and the patient is currently on metoprolol 25 mg p.o. twice a day and her heart rate is under better control. Afebrile. No chest pain. No pleurisy. No hemoptysis. 04/05/2025, the patient is being seen for a follow-up. On today's evaluation, the patient is essentially the same. Continues to have some shortness of breath. Based on that, I performed a bedside thoracentesis on the patient and a total of 900 cc of pleural fluid was aspirated from the right hemithorax without any complication. Follow-up chest x-ray showed no evidence of any pneumothorax and there was improvement in the aeration in the right lung base. There is some residual small right-sided pleural effusion and some mild atelectatic change in the right lung base. Overall findings have essentially improved. The patient did experience some pleuritic chest pain following the thoracentesis which ultimately recovered. She does have some chronic elevation of the right hemidiaphragm. The pleural fluid will be sent for analysis. The white cell count of 14.9. Hemoglobin 9.8 and a platelet count of 434. Electrolytes are within normal limits. BUN is 18 with a creatinine of 0.9. The patient is going to be restarted back on Xarelto postthoracentesis. 04/06/2025, the patient is being seen for a follow-up. The patient is stable. The patient underwent a thoracentesis of the right lung and the pleural fluid is an exudate. No complications following the thoracentesis. However, the patient is still weak, lethargic, complaining of crampy lower abdominal pain and for that reason, CAT scan of the chest abdomen and pelvis will be obtained. The patient is white cell count at 18 with a hemoglobin 10.8 and a platelet count of 436. BUN is 21 with a creatinine of 0.8. Sodium levels at 134. She is currently on room air oxygen with a pulse ox of 92%. Anticoagulation was restarted. No antibiotics for now. Objective - Vital Signs Vital signs: Vital Signs Temp 98.4 F 04/06/25 08:00 Pulse 110 H 04/06/25 08:00 Resp 16 04/06/25 08:00 BP 112/66 04/06/25 08:00 Pulse Ox 92 L 04/06/25 08:00 FiO2 Intake & Output 04/05/25 04/06/25 04/06/25 18:59 06:59 18:59 Intake Total 20 240 Output Total 1000 Balance -1000 20 240 Intake: IV 20 0.9 20 Oral 240 Output: Chest Tube Drainage 1000 Chest Tube Posterior 1000 Chest Other: Voiding Method External Catheter External Catheter External Catheter # Voids 300 - Exam The patient appeared well nourished and normally developed. Vital signs as documented. The patient is currently on room air oxygen. The patient is morbidly obese with a BMI of 41.5 Head exam is unremarkable. No scleral icterus or corneal arcus noted. Neck is without jugular venous distension, thyromegaly, or carotid bruits. Carotid upstrokes are brisk bilaterally. Lungs revealed diminished breath sound right lung base along with dullness to percussion consistent with pleural effusion, and air entry in the right lung base improved following the thoracentesis Cardiac exam reveals the PMI to be normally sized and situated. Irregular consistent with atrial fibrillation. First and second heart sounds normal. No murmurs, rubs or gallops. Abdominal exam reveals normal bowel sounds, no masses, no organomegaly and no aortic enlargement. Extremities are nonedematous and both femoral and pedal pulses are normal. Examination of the skin revealed no evidence of significant rashes, suspicious appearing nevi or other concerning lesions. Neurologically, the patient is awake and alert and the patient does not have any focal neurological deficit. Cranial nerves are essentially intact. - Labs CBC & Chem 7: 04/06/25 07:55 04/06/25 07:55 Labs: Abnormal Lab Results - Last 24 Hours (Table) 04/05/25 04/06/25 04/06/25 Range/Units 15:00 07:55 07:55 WBC 18.74 H (4.50-10.00) 10*3/uL RBC 3.65 L (4.10-5.20) 10*6/uL Hgb 10.8 L (12.0-15.0) g/dL Hct 32.7 L (37.2-46.3) % MPV 8.9 L (9.5-12.2) fL Immature Gran # 0.61 H (0.00-0.04) 10*3/uL Neutrophils # 14.05 H (1.80-7.70) 10*3/uL Monocytes # 2.33 H (0.20-1.00) 10*3/uL Sodium 134 L (137-145) mmol/L BUN 21 H (7-17) mg/dL Glucose 157 H (74-99) mg/dL Calcium 8.2 L (8.4-10.2) mg/dL Lactate Dehydrogenase (120-246) U/L Total Protein 5.7 L (6.3-8.2) g/dL Albumin 2.5 L (3.5-5.0) g/dL Fluid Appearance Cloudy A (Clear) 04/06/25 Range/Units 07:55 WBC (4.50-10.00) 10*3/uL RBC (4.10-5.20) 10*6/uL Hgb (12.0-15.0) g/dL Hct (37.2-46.3) % MPV (9.5-12.2) fL Immature Gran # (0.00-0.04) 10*3/uL Neutrophils # (1.80-7.70) 10*3/uL Monocytes # (0.20-1.00) 10*3/uL Sodium (137-145) mmol/L BUN (7-17) mg/dL Glucose (74-99) mg/dL Calcium (8.4-10.2) mg/dL Lactate Dehydrogenase 550 H (120-246) U/L Total Protein (6.3-8.2) g/dL Albumin (3.5-5.0) g/dL Fluid Appearance (Clear) Assessment and Plan Plan: Right-sided pleural effusion, moderate size with secondary shortness of breath. This pleural effusion was initially noted on a CAT scan of the abdomen and pelvis that was done on 03/28/2025 to monitor the patient's postop drop in the hemoglobin. Subsequent chest x-ray from 03/30/2025 showed a right-sided pleural effusion and obviously the patient has become symptomatic postdischarge. Thoracentesis was performed on 04/05/2025 and a total of 900 cc of pleural fluid was aspirated without any complication. Subsequent chest x-ray showed no evidence of any pneumothorax. The pleural fluid aspirated is an exudate, awaiting cultures and cytology. Atrial fibrillation with RVR, rate is controlled and the patient is on metoprolol. Patient is also on anticoagulants with Xarelto. Acute appendicitis and the patient is post laparoscopic appendectomy. Surgery was performed on 03/25/2025. For now, the patient is having some crampy abdominal pain. She also has generalized weakness and some mild leukocytosis. Right peritoneal hematoma due to postoperative bleeding following surgery, hemoglobin remained stable. Hypothyroidism Hypertension Hyperlipidemia Skin cancer Previous history of DVT Osteoarthritis, and the patient has undergone a right hip replacement, right knee replacement and the patient is receiving chronic pain management through pain management services. Spinal stenosis History of duodenal ulcer History of parathyroidectomy History of chronic recurrent UTIs Previous history of ischemic colitis back in 2010 Mild to moderate aortic and mitral valve regurgitation with a preserved LV function with an ejection fraction of 55% based on echocardiogram from January 2024 Plan Thoracentesis was completed and the pleural fluid is an exudate, awaiting cultures and cytology Continue anticoagulation with Xarelto Cardiology to for management of atrial fibrillation. Patient is currently on metoprolol with a controlled rate Hemoglobin is stable No active GI issues following appendectomy obtain CAT scan of the chest abdomen and pelvis, rule out intra-abdominal bleed/hematoma/abscess Will follow
[2025-04-07 05:07] LABS: Amorphous Sediment,Urine Few /hpf; Bacteria,Urine Many /hpf; Bilirubin,Urine Negative (Negative); Blood,Urine Negative (Negative); Budding Yeast,Urine Few /hpf; Color,Urine Yellow; Glucose,Urine (UA) Negative (Negative); Hyphae Yeast, Urine Occasional /hpf; Ketones,Urine Negative (Negative); Leukocyte Esterase,Urine Moderate (Negative); Mucus,Urine Moderate /hpf; Nitrite,Urine Negative (Negative); PH, Urine 5.5 (5.0-8.0); Protein,Urine 1+ (Negative); RBC,Urine 10 /hpf (0-5); Squamous Epithelial Cell,Urine 30 /hpf (0-4); Uric Acid Crystals,Urine Few /hpf; Urobilinogen,Urine <2.0 mg/dL (<2.0); WBC,Urine 146 /hpf (0-5)
[2025-04-07 05:09] LABS: Specific Gravity,Urine >1.050 (1.001-1.035)
[2025-04-07] MEDS: LACTULOSE 20 GM/30 ML CUP PO SCH (09:36)
[2025-04-07] MEDS: PSYLLIUM HUSK 100% 6 GM PACKET PO SCH (09:36)
[2025-04-07 09:44] LABS: HCT 31.7 % (37.2-46.3); HGB 10.4 g/dL (12.0-15.0); MCH 29.0 pg (27.0-32.0); MCHC 32.8 g/dL (32.0-37.0); MCV 88.3 fL (80.0-97.0); Platelet Count 425 10*3/uL (140-440); RBC 3.59 10*6/uL (4.10-5.20); RDW 16.2 % (11.5-14.5); WBC 19.78 10*3/uL (4.50-10.00)
[2025-04-07 10:06] LABS: ALT 13 U/L (4-34); AST 24 U/L (14-36); African American GFR (CKD) 55 (>60 ml/min/1.73 sqM); Albumin 2.5 g/dL (3.5-5.0); Alkaline Phosphatase 74 U/L (38-126); Anion Gap 6 mmol/L; Blood Urea Nitrogen 25 mg/dL (7-17); Calcium 8.4 mg/dL (8.4-10.2); Carbon Dioxide 28 mmol/L (22-30); Chloride 98 mmol/L (98-107); Glucose 97 mg/dL (74-99); Magnesium 1.9 mg/dL (1.6-2.3); Non-African American GFR(CKD) 48 (>60 ml/min/1.73 sqM); Potassium 3.9 mmol/L (3.5-5.1); Sodium 132 mmol/L (137-145); Total Protein 5.7 g/dL (6.3-8.2)
[2025-04-07] MEDS: PIPERACILLIN-TAZOBACTAM 3.375 GM in SODIUM CHLORIDE 0.9% 100 ML IVPB SCH (12:04)
[2025-04-07 12:22] LABS: Eosinophils # (M) 0.59 k/uL (0-0.7); Lymphocytes # (M) 1.38 k/uL (1.0-4.8); Metamyelocytes # (M) 0.20 k/uL (0); Monocytes # (M) 2.57 k/uL (0-1.0); Myelocytes # (M) 0.40 k/uL (0); Neutrophils # (M) 15.03 k/uL (1.3-7.7); Neutrophils % (M) 75 %; RBC Morphology Normal; Total Cells Counted 200
[2025-04-07] MEDS: ONDANSETRON 4 MG/2 ML VIAL IVP PRN (13:38)
--- NOTE | 2025-04-07 14:17 | P.PN ---
Subjective Progress Note Date: 04/07/25 Patient is a 85 year old female with atrial fibrillation, DVT, hyperlipidemia, hypertension, osteoarthritis, hypothyroidism, cholecystectomy, hysterectomy status post appendectomy who presents with palpitations and shortness of breath. Symptoms occur with exertion and have been going on for over a week. She was discharged from this hospital 03/30/2025 where she had a laparoscopic appendectomy. Currently she is denying chest pain, cough. She is taken 1 dose of Xarelto since her discharge. She does endorse nausea and vomiting with a decreased appetite over the last few days. Her last bowel movement was 2 days ago. No recent fever or chills. She does endorse some mild abdominal pain which she feels is from her recent surgery. No other complaints at this time. ER findings: LabsWBC 16, hemoglobin 10.2, APTT 21.6, sodium 134, potassium 2.7, glucose 127, magnesium 1.3, total bilirubin 1.4, AST 45, troponin 0.022, proBNP 1300, TSH 12.3, free T4 1.09 Chest x-ray with findings of right subpulmonic effusion EKG independently interpreted as A-fib with RVR, rate 143, QTc 329. Lateral ST depression. 04/04/2025no acute events overnight. Denies chest pain or shortness of breath. Nausea improved. Possible thoracentesis 04/05/2025no acute events overnight. No complaints of shortness of breath or chest pain. Possible thoracentesis today. 04/06/2025no acute events overnight. No complaints of shortness of breath or chest pain. Thoracentesis yesterday 04/07/2025seen and examined at bedside. No acute events overnight. She has worsening generalized abdominal pain. No complaints of shortness of breath or chest pain. Review of systems: Pertinent positives and negatives as discussed in HPI, a complete review of systems was performed and all other systems are negative. Vitals: Signs Reviewed PHYSICAL EXAMINATION: VITAL SIGNS: Reviewed GENERAL: Resting comfortably in bed. Obese. CARDIOVASCULAR: S1 and S2 present. No murmurs, rubs, or gallops. PULMONARY: Chest is clear to auscultation, no wheezing, rhonchi, or crackles. ABDOMEN: Soft, mild generalized tenderness, nondistended. No palpable organomegaly. NEUROLOGICAL: Alert and oriented x 3. Gross neurological examination with no apparent focal deficits. EXTREMITIES: No pedal edema. Today significant findings: LabsWBC 19.7, hemoglobin 10.4, sodium 132, BUN 25, creatinine 1.07, UA with significant squamous epithelial cells CT chest abdomen pelvis with 4 more organized appearing fluid collections within the abdomen along right paracolic gutter, right posterior hepatic margin, and posterior pelvis nocturnal gas, collections demonstrate peripheral enhancement. Previously characterized as intraperitoneal hematomas, may represent resolving hematomas however underlying super imposed abscess cannot be excluded right hepatic margin collection and pelvic collections have mildly increased in size. Also small right pleural effusion. Pleural fluid culture Gram stain few PMNs thus far Assessment/Plan: Patient is a 85 year old female with atrial fibrillation, DVT, hyperlipidemia, hypertension, osteoarthritis, hypothyroidism, cholecystectomy, hysterectomy, status post appendectomy who presents with palpitations and shortness of breath. Spoke with the ER physician and patient accepted by internal medicine for treatment. #Paroxysmal Atrial fibrillation, with RVR, now rate controlled #Dyspnea #Recent Appendectomy, with possible complication of abdominal abscesses # Right-sided exudative pleural effusion, s/p thoracentesis 900 mL removed #Leukocytosis, likely due to above Chest x-ray with findings of right subpulmonic effusion Ultrasound chest right-sided pleural effusion, pocket size 9.[address] abdomen with 4 organized appearing fluid collections, possible abscesses versus resolving hematomas Discontinue Cardizem drip Continue metoprolol 25 mg p.o. twice daily Resume Xarelto Begin Zosyn 3.375 every 8 hours Continuous cardiac monitoring Fluid cultures, cytology pending Monitor CBC, CMP and magnesium ID consulted Pulmonology following #Constipation Begin Metamucil and lactulose 30 g p.o. 3 times daily #Elevated TSH #Hypothyroidism Possible lab error versus euthyroid sick syndrome Initial TSH 12.3, free T4 1.09. TSH 0.08 earlier this month Resume Synthroid Monitor symptoms #Nausea vomiting, resolved #Severe hypokalemia, resolved #Hypomagnesemia, resolved Continue Zofran 4 mg every 8 hours as needed Given 1 g magnesium sulfate in ER, and later 3 g of magnesium sulfate Chronic medical conditions: #Hyperlipidemia #Hypertension #Anxiety/depression #Insomnia Resume home medications once reconciled DVT prophylaxis: Continue Xarelto CODE STATUS: FULL CODE Anticipated discharge date and place: Pending clinical course Satnam Maloney MD Internal Medicine Resident, PGY1 Dictation was produced using iLive dictation software. please excuse any gram matical, word or spelling errors. I saw and evaluated the patient during the moss and critical portions of this encounter, and discussed the case in detail with the resident author of this note, I agree with the Assessment and Plan, and my changes, if any, are highlighted in blue. Interventional radiology consulted for fluid aspiration to rule out infection Objective - Vital Signs Vital signs: Vital Signs Temp 98.1 F 04/06/25 20:50 Pulse 92 04/07/25 04:27 Resp 16 04/07/25 04:27 BP 133/74 04/07/25 04:27 Pulse Ox 91 L 04/07/25 04:27 FiO2 Intake & Output 04/06/25 04/07/25 04/07/25 18:59 06:59 18:59 Intake Total 480 Output Total 320 Balance 480 -320 Intake: Oral 480 Output: Urine 300 Post Void Residual 20 Other: Voiding Method External Catheter External Catheter - Labs CBC & Chem 7: 04/07/25 09:03 04/07/25 09:03 Labs: Abnormal Lab Results - Last 24 Hours (Table) 04/06/25 04/06/25 04/06/25 Range/Units 07:55 07:55 07:55 WBC 18.74 H (4.50-10.00) 10*3/uL RBC 3.65 L (4.10-5.20) 10*6/uL Hgb 10.8 L (12.0-15.0) g/dL Hct 32.7 L (37.2-46.3) % MPV 8.9 L (9.5-12.2) fL Immature Gran # 0.61 H (0.00-0.04) 10*3/uL Neutrophils # 14.05 H (1.80-7.70) 10*3/uL Monocytes # 2.33 H (0.20-1.00) 10*3/uL Sodium 134 L (137-145) mmol/L BUN 21 H (7-17) mg/dL Glucose 157 H (74-99) mg/dL Calcium 8.2 L (8.4-10.2) mg/dL Lactate Dehydrogenase 550 H (120-246) U/L Total Protein 5.7 L (6.3-8.2) g/dL Albumin 2.5 L (3.5-5.0) g/dL Urine Appearance (Clear) Ur Specific [place] (1.001-1.035) Urine Protein (Negative) Ur Leukocyte Esterase (Negative) Urine RBC (0-5) /hpf Urine WBC (0-5) /hpf Ur Squamous Epith Cells (0-4) /hpf Uric Acid Crystals (None) /hpf Amorphous Sediment (None) /hpf Urine Bacteria (None) /hpf Urine Mucus (None) /hpf Urine Yeast (Budding) (None) /hpf 04/07/25 Range/Units 04:00 WBC (4.50-10.00) 10*3/uL RBC (4.10-5.20) 10*6/uL Hgb (12.0-15.0) g/dL Hct (37.2-46.3) % MPV (9.5-12.2) fL Immature Gran # (0.00-0.04) 10*3/uL Neutrophils # (1.80-7.70) 10*3/uL Monocytes # (0.20-1.00) 10*3/uL Sodium (137-145) mmol/L BUN (7-17) mg/dL Glucose (74-99) mg/dL Calcium (8.4-10.2) mg/dL Lactate Dehydrogenase (120-246) U/L Total Protein (6.3-8.2) g/dL Albumin (3.5-5.0) g/dL Urine Appearance Cloudy H (Clear) Ur Specific [place] >1.050 H (1.001-1.035) Urine Protein 1+ H (Negative) Ur Leukocyte Esterase Moderate H (Negative) Urine RBC 10 H (0-5) /hpf Urine WBC 146 H (0-5) /hpf Ur Squamous Epith Cells 30 H (0-4) /hpf Uric Acid Crystals Few H (None) /hpf Amorphous Sediment Few H (None) /hpf Urine Bacteria Many H (None) /hpf Urine Mucus Moderate H (None) /hpf Urine Yeast (Budding) Few H (None) /hpf Microbiology - Last 24 Hours (Table) 04/05/25 15:00 Gram Stain - Preliminary Pleural Fluid
--- NOTE | 2025-04-07 14:51 | P.GSCN ---
History of Present Illness Consult date: 04/07/25 Reason for Consult: Abdominal pain History of present illness: 85-year-old female underwent laparoscopic appendectomy on 03/25. Postoperative t he patient had a significant drop in hemoglobin from 13 down to 7. A repeat CAT scan was performed in the postop course which demonstrated some right-sided hematoma formation. Patient went home came back with complaints of irregular heartbeat. Denied abdominal pain initially although now says she was having some discomfort prior to having bowel function. Described constipation. Says she feels better now. She does admit to tenderness on exam. Hemoglobin has been more stable. White blood cell count is elevated. No fevers. Mild intermittent tachycardia. CAT scan was obtained which shows fluid collection along the right gutter with a more liquid component now, some fluid pockets also seen in the pelvis. No air within the collections. Review of Systems The patient denies any acute changes in vision or hearing, no dysphagia or odynophagia, no dysuria or hematuria, no headache, no runny nose, no rectal bleeding or melena, no unexplained weight loss Past Medical History Past Medical History: Atrial Fibrillation, Cancer, Deep Vein Thrombosis (DVT), Hyperlipidemia, Hypertension, Osteoarthritis (OA), Thyroid Disorder Additional Past Medical History / Comment(s): HX DVT 2008., chronic UTI's, varicose veins, constipation, hx "ischemic colitis" 2010, skin cancer, SPINAL STENOSIS, NT left LEG/FOOT- USES WALKER., collapsed tendon left foot, duodenal ulcer, episode of a-fib after knee replacement History of Any Multi-Drug Resistant Organisms: None Reported Past Surgical History: Bladder Surgery, Cholecystectomy, Hysterectomy, Joint Re placement, Orthopedic Surgery Additional Past Surgical History / Comment(s): Parathyroidectomy, Bladder suspension, smita and screws right femur. Cortisone injection, pain clinic procedures. rt hip replacement, rt knee replacement 06/2021, lakisha cataracts., left knee replaced 2021, colonoscopy recently Past Anesthesia/Blood Transfusion Reactions: No Reported Reaction Past Psychological History: Depression Smoking Status: Never smoker Past Alcohol Use History: None Reported Past Drug Use History: None Reported - Past Family History Father Family Medical History: Cancer Additional Family Medical History / Comment(s): LUNG CANCER Mother Family Medical History: Cancer Additional Family Medical History / Comment(s): Breast Cancer. Medications and Allergies Home Medications Medication Instructions Recorded Confirmed Type Metoprolol Tartrate [Lopressor] 25 mg PO BID 09/08/18 04/04/25 History DULoxetine HCL [Cymbalta] 60 mg PO DAILY 11/19/20 04/04/25 History Pravastatin Sodium [Pravachol] 20 mg PO HS 01/10/21 04/04/25 History Losartan Potassium [Cozaar] 100 mg PO DAILY 06/25/21 04/04/25 History busPIRone HCL 10 mg PO Q12H 05/30/22 04/04/25 History DULoxetine HCL [Cymbalta] 30 mg PO DAILY 08/08/22 04/04/25 History Levothyroxine Sodium [Synthroid] 112 mcg PO DAILY 08/08/22 04/04/25 History Pantoprazole [Protonix] 40 mg PO DAILY 08/08/22 04/04/25 History Clobetasol Propionate [Clobex 1 applic TOPICAL HS PRN 03/24/25 04/04/25 History 0.05% Soln] Ketoconazole 2% Shampoo [Nizoral] 1 applic TOPICAL Q3D PRN 03/24/25 04/04/25 History Ramelteon [Rozerem] 8 mg PO HS PRN 03/24/25 04/04/25 History Rivaroxaban [Xarelto] 20 mg PO DAILY 03/24/25 04/04/25 History fluocinolone acetonide oiL 2 - 3 drops BOTH EARS BID PRN 03/24/25 04/04/25 History [Dermotic] Acetaminophen Tab [Tylenol Tab] 650 mg PO Q4H PRN #30 tablet 03/30/25 04/04/25 Rx Furosemide [Lasix] 20 mg PO DAILY #90 tab 03/30/25 04/04/25 Rx Levofloxacin [Levaquin] 500 mg PO DAILY 10 Days #10 tab 03/30/25 04/04/25 Rx metroNIDAZOLE [Flagyl] 500 mg PO TID 10 Days #30 tab 03/30/25 04/04/25 Rx Allergies Allergy/AdvReac Type Severity Reaction Status Date / Time Sulfa (Sulfonamide Allergy Rash/Hives Verified 04/04/25 10:34 Antibiotics) Surgical - Exam Vital Signs Temp Pulse Resp BP Pulse Ox 98.1 F 146 H 18 145/91 95 04/03/25 14:50 04/03/25 14:50 04/03/25 14:50 04/03/25 14:50 04/03/25 14:50 Physical exam: General: Well-developed, well-nourished HEENT: Normocephalic, sclerae nonicteric Abdomen: Mild diffuse tenderness, slightly increased right side, no erythema nondistended Extremities: Mild lower extremity edema Neuro: Alert and oriented Results - Labs 04/07/25 09:03 04/07/25 09:03 Abnormal Lab Results - Last 24 Hours (Table) 04/07/25 04/07/25 04/07/25 Range/Units 04:00 09:03 09:03 WBC 19.78 H (4.50-10.00) 10*3/uL RBC 3.59 L (4.10-5.20) 10*6/uL Hgb 10.4 L (12.0-15.0) g/dL Hct 31.7 L (37.2-46.3) % MPV 9.0 L (9.5-12.2) fL Immature Gran # 0.68 H (0.00-0.04) 10*3/uL Neutrophils # (Manual) 15.03 H (1.3-7.7) k/uL Monocytes # (Manual) 2.57 H (0-1.0) k/uL Metamyelocytes # (Man) 0.20 H (0) k/uL Myelocytes # (Manual) 0.40 H (0) k/uL Sodium 132 L (137-145) mmol/L BUN 25 H (7-17) mg/dL Creatinine 1.07 H (0.52-1.04) mg/dL Total Protein 5.7 L (6.3-8.2) g/dL Albumin 2.5 L (3.5-5.0) g/dL Urine Appearance Cloudy H (Clear) Ur Specific [place] >1.050 H (1.001-1.035) Urine Protein 1+ H (Negative) Ur Leukocyte Esterase Moderate H (Negative) Urine RBC 10 H (0-5) /hpf Urine WBC 146 H (0-5) /hpf Ur Squamous Epith Cells 30 H (0-4) /hpf Uric Acid Crystals Few H (None) /hpf Amorphous Sediment Few H (None) /hpf Urine Bacteria Many H (None) /hpf Urine Mucus Moderate H (None) /hpf Urine Yeast (Budding) Few H (None) /hpf Microbiology - Last 24 Hours (Table) 04/05/25 15:00 Gram Stain - Preliminary Pleural Fluid Diabetes panel 04/07/25 Range/Units 09:03 Sodium 132 L (137-145) mmol/L Potassium 3.9 (3.5-5.1) mmol/L Chloride 98 (98-107) mmol/L Carbon Dioxide 28 (22-30) mmol/L BUN 25 H (7-17) mg/dL Creatinine 1.07 H (0.52-1.04) mg/dL Glucose 97 (74-99) mg/dL Calcium 8.4 (8.4-10.2) mg/dL AST 24 (14-36) U/L ALT 13 (4-34) U/L Alkaline Phosphatase 74 (38-126) U/L Total Protein 5.7 L (6.3-8.2) g/dL Albumin 2.5 L (3.5-5.0) g/dL Calcium panel 04/07/25 Range/Units 09:03 Calcium 8.4 (8.4-10.2) mg/dL Albumin 2.5 L (3.5-5.0) g/dL Pituitary panel 04/07/25 Range/Units 09:03 Sodium 132 L (137-145) mmol/L Potassium 3.9 (3.5-5.1) mmol/L Chloride 98 (98-107) mmol/L Carbon Dioxide 28 (22-30) mmol/L BUN 25 H (7-17) mg/dL Creatinine 1.07 H (0.52-1.04) mg/dL Glucose 97 (74-99) mg/dL Calcium 8.4 (8.4-10.2) mg/dL Adrenal panel 04/07/25 Range/Units 09:03 Sodium 132 L (137-145) mmol/L Potassium 3.9 (3.5-5.1) mmol/L Chloride 98 (98-107) mmol/L Carbon Dioxide 28 (22-30) mmol/L BUN 25 H (7-17) mg/dL Creatinine 1.07 H (0.52-1.04) mg/dL Glucose 97 (74-99) mg/dL Calcium 8.4 (8.4-10.2) mg/dL Total Bilirubin 0.6 (0.2-1.3) mg/dL AST 24 (14-36) U/L ALT 13 (4-34) U/L Alkaline Phosphatase 74 (38-126) U/L Total Protein 5.7 L (6.3-8.2) g/dL Albumin 2.5 L (3.5-5.0) g/dL Assessment and Plan (1) Acute appendicitis Narrative/Plan: 85-year-old female with recent acute appendicitis. Patient with postoperative bleeding and previous CAT scan showing hematoma formation. Hemoglobin has been stable. Now patient with elevated white blood cell count and persistent intra- abdominal fluid collections after recent appendicitis. Patient had right-sided pleural effusion and thoracentesis performed. No organisms seen. Final cultures pending. Continue broad-spectrum antibiotics. Continue diet as tolerated. Unfortunately the only way to know for sure whether this collection of fluid is infected is to aspirate. This could be performed percutaneously or through a surgical approach. Would try to avoid surgery unless absolutely needed. If percutaneous aspiration of fluid required will likely require transfer as we do not have a functional IR service at this time. Current Visit: No Status: Acute Code(s): K35.80 - UNSPECIFIED ACUTE APPENDICITIS SNOMED Code(s): 16617706
[2025-04-07] MEDS: LACTATED RINGERS 1,000 ML IV SCH (16:36)
--- NOTE | 2025-04-07 18:33 | P.PN ---
Subjective Progress Note Date: 04/07/25 85-year-old female patient, who is post laparoscopic appendectomy that was performed on 03/25/2025, discharged home to be readmitted to the hospital because of worsening shortness of breath. The patient postop developed a drop in hemoglobin and a CAT scan of the abdomen and pelvis was ordered and showed a right peritoneal hematoma attributed to some bleeding following the surgery. There was no acute extravasation. The patient did require a unit of packed RBC and ultimately the patient was able to tolerate diet and she was having bowel movements and the patient was discharged home on oral Levaquin and Flagyl. The patient was readmitted to the hospital for worsening shortness of breath. She is known to have hypertension, hyperlipidemia, hypothyroidism and paroxysmal atrial fibrillation. Xarelto was held at the time of surgery and restarted on an outpatient basis. Reviewed the follow-up CAT scan of the chest that was done on 03/28/2025 and the patient was already developing a small right-sided pleural effusion in addition to the peritoneal hematoma that was discussed above. Follow-up chest x-ray done today in the emergency department shows a right-sided pleural effusion and ultrasound of the chest was also done confirming the findings and the patient was found to have a 9 cm pocket size pleural fluid on the right. Marking was performed. Nevertheless, thoracentesis was not perfo rmed today as the patient was taking anticoagulation on outpatient basis and the patient's anticoagulation is currently on hold. She is currently on room air oxygen. Her current cardiac rhythm is A-fib with RVR. The patient was seen by cardiology, initially started on Cardizem drip and this was ultimately discontinued and the patient is currently on metoprolol 25 mg p.o. twice a day and her heart rate is under better control. Afebrile. No chest pain. No pleurisy. No hemoptysis. 04/05/2025, the patient is being seen for a follow-up. On today's evaluation, the patient is essentially the same. Continues to have some shortness of breath. Based on that, I performed a bedside thoracentesis on the patient and a total of 900 cc of pleural fluid was aspirated from the right hemithorax without any complication. Follow-up chest x-ray showed no evidence of any pneumothorax and there was improvement in the aeration in the right lung base. There is some residual small right-sided pleural effusion and some mild atelectatic change in the right lung base. Overall findings have essentially improved. The patient did experience some pleuritic chest pain following the thoracentesis which ultimately recovered. She does have some chronic elevation of the right hemidiaphragm. The pleural fluid will be sent for analysis. The white cell count of 14.9. Hemoglobin 9.8 and a platelet count of 434. Electrolytes are within normal limits. BUN is 18 with a creatinine of 0.9. The patient is going to be restarted back on Xarelto postthoracentesis. 04/06/2025, the patient is being seen for a follow-up. The patient is stable. The patient underwent a thoracentesis of the right lung and the pleural fluid is an exudate. No complications following the thoracentesis. However, the patient is still weak, lethargic, complaining of crampy lower abdominal pain and for that reason, CAT scan of the chest abdomen and pelvis will be obtained. The patient is white cell count at 18 with a hemoglobin 10.8 and a platelet count of 436. BUN is 21 with a creatinine of 0.8. Sodium levels at 134. She is currently on room air oxygen with a pulse ox of 92%. Anticoagulation was restarted. No antibiotics for now. On 04/07/2025, the patient is being seen for a follow-up. Remains on room air o xygen. Pleural fluid was aspirated to not to be an exudate, awaiting cytology. Meanwhile, CAT scan of the abdomen and pelvis was done and the patient was found to have some abnormal collection in the abdomen as the patient was noted to have 4 more organized appearing fluid collections within the abdomen along the right paracolic gutter and right posterior hepatic margin and posterior pelvis. He matoma versus seroma versus abscess. She is having abdominal cramping and the patient will be asked to be seen again by general surgery. The patient is hemodynamically stable. She continues to have some mild leukocytosis. She is tolerating her diet. No nausea. No emesis. She is afebrile. White cell count at 19 with a heme of 10.4 and platelet count of 425. BUN is 25 with a creatinine of 1.07. Sodium is at 132. Objective - Vital Signs Vital signs: Vital Signs Temp 98.7 F 04/07/25 08:00 Pulse 107 H 04/07/25 08:00 Resp 16 04/07/25 08:00 BP 144/78 04/07/25 08:00 Pulse Ox 92 L 04/07/25 08:00 FiO2 Intake & Output 04/06/25 04/07/25 04/07/25 18:59 06:59 18:59 Intake Total 480 Output Total 320 Balance 480 -320 Intake: Oral 480 Output: Urine 300 Post Void Residual 20 Other: Voiding Method External Catheter External Catheter External Catheter - Exam The patient appeared well nourished and normally developed. Vital signs as documented. The patient is currently on room air oxygen. The patient is morbidly obese with a BMI of 41.5 Head exam is unremarkable. No scleral icterus or corneal arcus noted. Neck is without jugular venous distension, thyromegaly, or carotid bruits. Carotid upstrokes are brisk bilaterally. Lungs revealed diminished breath sound right lung base along with dullness to percussion consistent with pleural effusion, and air entry in the right lung base improved following the thoracentesis Cardiac exam reveals the PMI to be normally sized and situated. Irregular cons istent with atrial fibrillation. First and second heart sounds normal. No murmurs, rubs or gallops. Abdominal exam reveals normal bowel sounds, no masses, no organomegaly and no aortic enlargement. Extremities are nonedematous and both femoral and pedal pulses are normal. Examination of the skin revealed no evidence of significant rashes, suspicious appearing nevi or other concerning lesions. Neurologically, the patient is awake and alert and the patient does not have any focal neurological deficit. Cranial nerves are essentially intact. - Labs CBC & Chem 7: 04/07/25 09:03 04/07/25 09:03 Labs: Abnormal Lab Results - Last 24 Hours (Table) 04/07/25 04/07/25 04/07/25 Range/Units 04:00 09:03 09:03 WBC 19.78 H (4.50-10.00) 10*3/uL RBC 3.59 L (4.10-5.20) 10*6/uL Hgb 10.4 L (12.0-15.0) g/dL Hct 31.7 L (37.2-46.3) % MPV 9.0 L (9.5-12.2) fL Immature Gran # 0.68 H (0.00-0.04) 10*3/uL Sodium 132 L (137-145) mmol/L BUN 25 H (7-17) mg/dL Creatinine 1.07 H (0.52-1.04) mg/dL Total Protein 5.7 L (6.3-8.2) g/dL Albumin 2.5 L (3.5-5.0) g/dL Urine Appearance Cloudy H (Clear) Ur Specific [place] >1.050 H (1.001-1.035) Urine Protein 1+ H (Negative) Ur Leukocyte Esterase Moderate H (Negative) Urine RBC 10 H (0-5) /hpf Urine WBC 146 H (0-5) /hpf Ur Squamous Epith Cells 30 H (0-4) /hpf Uric Acid Crystals Few H (None) /hpf Amorphous Sediment Few H (None) /hpf Urine Bacteria Many H (None) /hpf Urine Mucus Moderate H (None) /hpf Urine Yeast (Budding) Few H (None) /hpf Microbiology - Last 24 Hours (Table) 04/05/25 15:00 Gram Stain - Preliminary Pleural Fluid Assessment and Plan Plan: Right-sided pleural effusion, moderate size with secondary shortness of breath. This pleural effusion was initially noted on a CAT scan of the abdomen and pelvis that was done on 03/28/2025 to monitor the patient's postop drop in the hemoglobin. Subsequent chest x-ray from 03/30/2025 showed a right-sided pleural effusion and obviously the patient has become symptomatic postdischarge. T horacentesis was performed on 04/05/2025 and a total of 900 cc of pleural fluid was aspirated without any complication. Subsequent chest x-ray showed no evidence of any pneumothorax. The pleural fluid aspirated is an exudate, awaiting cultures and cytology. Atrial fibrillation with RVR, rate is controlled and the patient is on metoprolol. Patient is also on anticoagulants with Xarelto. Acute appendicitis and the patient is post laparoscopic appendectomy. Surgery was performed on 03/25/2025. For now, the patient is having some crampy abdominal pain. She also has generalized weakness and some mild leukocytosis. The patient had a CAT scan of the chest abdomen pelvis and the patient was found to have 4 collections in the abdomen along the right paracolic gutter and Right posterior hepatic margin and pelvis. Will request a surgical consultation. This could be a seroma, hematoma versus abscess. The patient continues to have leukocytosis. Right peritoneal hematoma due to postoperative bleeding following surgery, hemoglobin remained stable. Hypothyroidism Hypertension Hyperlipidemia Skin cancer Previous history of DVT Osteoarthritis, and the patient has undergone a right hip replacement, right knee replacement and the patient is receiving chronic pain management through pain management services. Spinal stenosis History of duodenal ulcer History of parathyroidectomy History of chronic recurrent UTIs Previous history of ischemic colitis back in 2010 Mild to moderate aortic and mitral valve regurgitation with a preserved LV function with an ejection fraction of 55% based on echocardiogram from January 2024 Plan Thoracentesis was completed and the pleural fluid is an exudate, awaiting cultures and cytology Continue anticoagulation with Xarelto Cardiology to for management of atrial fibrillation. Patient is currently on metoprolol with a controlled rate Hemoglobin is stable CAT scans of the chest and abdomen and pelvis was noted General surgical consultation Will continue to follow. Overall respiratory status is stable and the patient is currently on room air oxygen.
--- NOTE | 2025-04-07 22:53 | P.CONS ---
History of Present Illness - Reason for Consult Consult date: 04/07/25 Possible intra-abdominal abscess Requesting physician: Satnam Maloney - Chief Complaint Palpitation shortness of breath x days - History of Present Illness Patient is a 85-year-old female with a past medical history negative for atrial fibrillation DVT hypertension hyperlipidemia osteoarthritis in this patient who recently underwent laparoscopic appendectomy on 03/25/2025 postoperatively patient did have a significant drop in hemoglobin and a follow- up CT she was noticed to have right sided hematoma formation patient was subsequent discharged home patient came back to the hospital on 04/03/2025 concerning for palpitation which apparently has been getting worse for about a week also complaining of increasing shortness of breath mostly on exertion patient denies having any chest pain no significant cough patient denies having any high-grade fever or chills and no fever have been guarded during this hospital stay patient has been tachycardic but not hypotensive or hypoxic no need for supplemental oxygen patient did have elevated white count of 14.92 which is up to 19.78 today hemoglobin has been stable BUN/creatinine combined elevated liver enzymes are normal did have a positive UA patient did have evidence of pleural effusion status post thoracocentesis on 04/05/2025 with a white count of 2281 and the cultures are currently pending patient did have CT chest abdominal pelvis completed yesterday which did show some organized septated fluid collection lateral abdominal along the right paracolic gutter no intraluminal gas peripheral enhancement concerning for hematoma abscess not entirely excluded patient has been started on Zosyn infectious disease was consulted today concerning for possible abscess patient was complaining of some lower abdominal pain however they seem to have delivered to the patient did have a bowel movement Denies significant pain to the right lower quadrant area did have mild nausea but no vomiting no chest pain shortness of breath on exertion no significant cough or sputum production Review of Systems Positive point and negatives has been mentioned in the HPI, complete review of systems was performed and all other systems are negative Past Medical History Past Medical History: Atrial Fibrillation, Cancer, Deep Vein Thrombosis (DVT), Hyperlipidemia, Hypertension, Osteoarthritis (OA), Thyroid Disorder Additional Past Medical History / Comment(s): HX DVT 2008., chronic UTI's, varicose veins, constipation, hx "ischemic colitis" 2010, skin cancer, SPINAL STENOSIS, NT left LEG/FOOT- USES WALKER., collapsed tendon left foot, duodenal ulcer, episode of a-fib after knee replacement History of Any Multi-Drug Resistant Organisms: None Reported Past Surgical History: Bladder Surgery, Cholecystectomy, Hysterectomy, Joint Replacement, Orthopedic Surgery Additional Past Surgical History / Comment(s): Parathyroidectomy, Bladder suspension, smita and screws right femur. Cortisone injection, pain clinic procedures. rt hip replacement, rt knee replacement 06/2021, lakisha cataracts., left knee replaced 2021, colonoscopy recently Past Anesthesia/Blood Transfusion Reactions: No Reported Reaction Past Psychological History: Depression Smoking Status: Never smoker Past Alcohol Use History: None Reported Past Drug Use History: None Reported - Past Family History Father Family Medical History: Cancer Additional Family Medical History / Comment(s): LUNG CANCER Mother Family Medical History: Cancer Additional Family Medical History / Comment(s): Breast Cancer. Medications and Allergies Home Medications Medication Instructions Recorded Confirmed Type Metoprolol Tartrate [Lopressor] 25 mg PO BID 09/08/18 04/04/25 History DULoxetine HCL [Cymbalta] 60 mg PO DAILY 11/19/20 04/04/25 History Pravastatin Sodium [Pravachol] 20 mg PO HS 01/10/21 04/04/25 History Losartan Potassium [Cozaar] 100 mg PO DAILY 06/25/21 04/04/25 History busPIRone HCL 10 mg PO Q12H 05/30/22 04/04/25 History DULoxetine HCL [Cymbalta] 30 mg PO DAILY 08/08/22 04/04/25 History Levothyroxine Sodium [Synthroid] 112 mcg PO DAILY 08/08/22 04/04/25 History Pantoprazole [Protonix] 40 mg PO DAILY 08/08/22 04/04/25 History Clobetasol Propionate [Clobex 1 applic TOPICAL HS PRN 03/24/25 04/04/25 History 0.05% Soln] Ketoconazole 2% Shampoo [Nizoral] 1 applic TOPICAL Q3D PRN 03/24/25 04/04/25 History Ramelteon [Rozerem] 8 mg PO HS PRN 03/24/25 04/04/25 History Rivaroxaban [Xarelto] 20 mg PO DAILY 03/24/25 04/04/25 History fluocinolone acetonide oiL 2 - 3 drops BOTH EARS BID PRN 03/24/25 04/04/25 History [Dermotic] Acetaminophen Tab [Tylenol Tab] 650 mg PO Q4H PRN #30 tablet 03/30/25 04/04/25 Rx Furosemide [Lasix] 20 mg PO DAILY #90 tab 03/30/25 04/04/25 Rx Levofloxacin [Levaquin] 500 mg PO DAILY 10 Days #10 tab 03/30/25 04/04/25 Rx metroNIDAZOLE [Flagyl] 500 mg PO TID 10 Days #30 tab 03/30/25 04/04/25 Rx Allergies Allergy/AdvReac Type Severity Reaction Status Date / Time Sulfa (Sulfonamide Allergy Rash/Hives Verified 04/04/25 10:34 Antibiotics) Physical Exam Vitals: Vital Signs Temp Pulse Pulse Resp BP Pulse Ox 04/07/25 08:00 98.7 F 107 H 16 144/78 92 L 04/07/25 04:27 92 16 133/74 91 L 04/06/25 23:35 78 16 116/70 91 L 04/06/25 20:50 98.1 F 108 H 14 142/80 91 L 04/06/25 18:03 98.9 F 106 H 14 95/54 96 Intake and Output 04/07/25 04/07/25 04/07/25 06:59 14:59 22:59 Output Total 70 Balance -70 Output: Urine 50 Post Void Residual 20 Other: Voiding Method External Catheter External Catheter GENERAL DESCRIPTION: Elderly female lying in bed, no distress. No tachypnea or accessory muscle of respiration use. HEENT: Shows Pallor , no scleral icterus. Oral mucous membrane is dry. No pharyngeal erythema or thrush NECK: Trachea central, no thyromegaly. LUNGS: Unlabored breathing. Decreased breath sound at the base HEART: S1, S2, regular rate and rhythm. No loud murmur ABDOMEN: Soft, significant lower abdominal wall bruising and no significant tenderness EXTREMITIES: No edema of feet. SKIN: No rash, no masses palpable. NEUROLOGICAL: The patient is awake, alert, oriented x3, mood and affect normal. Results CBC & Chem 7: 04/07/25 09:03 04/07/25 09:03 Labs: Abnormal Lab Results - Last 24 Hours (Table) 04/07/25 04/07/25 04/07/25 Range/Units 04:00 09:03 09:03 WBC 19.78 H (4.50-10.00) 10*3/uL RBC 3.59 L (4.10-5.20) 10*6/uL Hgb 10.4 L (12.0-15.0) g/dL Hct 31.7 L (37.2-46.3) % MPV 9.0 L (9.5-12.2) fL Immature Gran # 0.68 H (0.00-0.04) 10*3/uL Neutrophils # (Manual) 15.03 H (1.3-7.7) k/uL Monocytes # (Manual) 2.57 H (0-1.0) k/uL Metamyelocytes # (Man) 0.20 H (0) k/uL Myelocytes # (Manual) 0.40 H (0) k/uL Sodium 132 L (137-145) mmol/L BUN 25 H (7-17) mg/dL Creatinine 1.07 H (0.52-1.04) mg/dL Total Protein 5.7 L (6.3-8.2) g/dL Albumin 2.5 L (3.5-5.0) g/dL Urine Appearance Cloudy H (Clear) Ur Specific [place] >1.050 H (1.001-1.035) Urine Protein 1+ H (Negative) Ur Leukocyte Esterase Moderate H (Negative) Urine RBC 10 H (0-5) /hpf Urine WBC 146 H (0-5) /hpf Ur Squamous Epith Cells 30 H (0-4) /hpf Uric Acid Crystals Few H (None) /hpf Amorphous Sediment Few H (None) /hpf Urine Bacteria Many H (None) /hpf Urine Mucus Moderate H (None) /hpf Urine Yeast (Budding) Few H (None) /hpf Microbiology - Last 24 Hours (Table) 04/05/25 15:00 Gram Stain - Preliminary Pleural Fluid Assessment and Plan (1) Leukocytosis Current Visit: Yes Status: Acute Code(s): D72.829 - ELEVATED WHITE BLOOD CELL COUNT, UNSPECIFIED SNOMED Code(s): 469554918 (2) Allergy to sulfa drugs Current Visit: Yes Status: Acute Code(s): Z88.2 - ALLERGY STATUS TO SULFONAMIDES SNOMED Code(s): 36862013 (3) Intra-abdominal collection Current Visit: Yes Status: Acute Code(s): R18.8 - OTHER ASCITES SNOMED Code(s): 610174396 Plan: 1patient will do have a history of appendicitis in this patient was status post laparoscopic appendectomy on 03/25/2025 with postop intra-abdominal hematoma in this patient who presented to the hospital mostly with palpitation and shortness of breath with the CT now showing more generalized fluid collection in the right lower quadrant area likely representing hematoma, infected hematoma abscess less likely but not excluded as the patient not running any fever he did not have any worsening abdominal pain or any tenderness 2-patient will benefit from IR drainage of that fluid collection which will be sent for Gram stain and culture 3-we will empirically cover with the patient with Zosyn while waiting for the workup to be completed We will follow on clinical condition and cultures to further adjust medication if needed Thank you for this consultation we will follow the patient along with you Dictation was produced using [employer] dictation software. please excuse any grammatical, word or spelling errors. Time with Patient: Greater than 30
[2025-04-08 07:40] LABS: Basophils # (A) 0.10 10*3/uL (0.00-0.10); Basophils % (A) 0.6 %; Eosinophils # (A) 0.18 10*3/uL (0.04-0.35); Eosinophils % (A) 1.0 %; HCT 30.6 % (37.2-46.3); HGB 9.7 g/dL (12.0-15.0); Lymphocytes # (A) 1.29 10*3/uL (0.90-5.00); Lymphocytes % (A) 7.4 %; MCH 28.4 pg (27.0-32.0); MCHC 31.7 g/dL (32.0-37.0); MCV 89.5 fL (80.0-97.0); Monocytes # (A) 2.70 10*3/uL (0.20-1.00); Monocytes % (A) 15.5 %; Neutrophils # (A) 12.53 10*3/uL (1.80-7.70); Neutrophils % (A) 72.1 %; Platelet Count 445 10*3/uL (140-440); RBC 3.42 10*6/uL (4.10-5.20); RDW 16.4 % (11.5-14.5); WBC 17.39 10*3/uL (4.50-10.00)
[2025-04-08 07:50] LABS: ALT 11 U/L (4-34); AST 21 U/L (14-36); African American GFR (CKD) 51 (>60 ml/min/1.73 sqM); Albumin 2.3 g/dL (3.5-5.0); Alkaline Phosphatase 71 U/L (38-126); Anion Gap 5 mmol/L; Blood Urea Nitrogen 23 mg/dL (7-17); Calcium 8.0 mg/dL (8.4-10.2); Carbon Dioxide 27 mmol/L (22-30); Chloride 102 mmol/L (98-107); Glucose 92 mg/dL (74-99); Non-African American GFR(CKD) 45 (>60 ml/min/1.73 sqM); Potassium 4.0 mmol/L (3.5-5.1); Sodium 134 mmol/L (137-145); Total Protein 5.3 g/dL (6.3-8.2)
--- NOTE | 2025-04-08 10:01 | P.PN ---
Subjective Progress Note Date: 04/08/25 Principal diagnosis: Post appendicitis Patient says she feels about the same today. Mild right-sided discomfort after a large bowel movement yesterday. Feels tired. White blood cell count today 17.3. She is afebrile. She is actually n.p.o. for possible percutaneous drain placement however I do not suspect we have capabilities of doing that here. Objective - Vital Signs Vital signs: Vital Signs Temp 98.1 F 04/08/25 08:37 Pulse 96 04/08/25 08:37 Resp 18 04/08/25 08:37 BP 148/72 04/08/25 08:37 Pulse Ox 93 L 04/08/25 08:37 FiO2 Intake & Output 04/07/25 04/08/25 04/08/25 18:59 06:59 18:59 Intake Total 0 Output Total 600 Balance 0 -600 Weight 96.1 kg Intake: Oral 0 Output: Urine 600 Other: Voiding Method External Catheter External Catheter External Catheter # Voids 2 # Bowel Movements 2 1 - Exam Abdomen: Soft, mild distention, mild right-sided tenderness - Labs CBC & Chem 7: 04/08/25 06:42 04/08/25 06:42 Labs: Abnormal Lab Results - Last 24 Hours (Table) 04/07/25 04/07/25 04/08/25 Range/Units 09:03 09:03 06:42 WBC 17.39 H (4.50-10.00) 10*3/uL RBC 3.42 L (4.10-5.20) 10*6/uL Hgb 9.7 L (12.0-15.0) g/dL Hct 30.6 L (37.2-46.3) % MCHC 31.7 L (32.0-37.0) g/dL Plt Count 445 H (140-440) 10*3/uL MPV 9.1 L (9.5-12.2) fL Immature Gran # 0.59 H (0.00-0.04) 10*3/uL Neutrophils # 12.53 H (1.80-7.70) 10*3/uL Neutrophils # (Manual) 15.03 H (1.3-7.7) k/uL Monocytes # 2.70 H (0.20-1.00) 10*3/uL Monocytes # (Manual) 2.57 H (0-1.0) k/uL Metamyelocytes # (Man) 0.20 H (0) k/uL Myelocytes # (Manual) 0.40 H (0) k/uL Sodium 132 L (137-145) mmol/L BUN 25 H (7-17) mg/dL Creatinine 1.07 H (0.52-1.04) mg/dL Calcium (8.4-10.2) mg/dL Total Protein 5.7 L (6.3-8.2) g/dL Albumin 2.5 L (3.5-5.0) g/dL 04/08/25 Range/Units 06:42 WBC (4.50-10.00) 10*3/uL RBC (4.10-5.20) 10*6/uL Hgb (12.0-15.0) g/dL Hct (37.2-46.3) % MCHC (32.0-37.0) g/dL Plt Count (140-440) 10*3/uL MPV (9.5-12.2) fL Immature Gran # (0.00-0.04) 10*3/uL Neutrophils # (1.80-7.70) 10*3/uL Neutrophils # (Manual) (1.3-7.7) k/uL Monocytes # (0.20-1.00) 10*3/uL Monocytes # (Manual) (0-1.0) k/uL Metamyelocytes # (Man) (0) k/uL Myelocytes # (Manual) (0) k/uL Sodium 134 L (137-145) mmol/L BUN 23 H (7-17) mg/dL Creatinine 1.13 H (0.52-1.04) mg/dL Calcium 8.0 L (8.4-10.2) mg/dL Total Protein 5.3 L (6.3-8.2) g/dL Albumin 2.3 L (3.5-5.0) g/dL Microbiology - Last 24 Hours (Table) 04/07/25 04:00 Urine Culture - Preliminary Urine,Voided Yeast 04/05/25 15:00 Gram Stain - Preliminary Pleural Fluid Body Fluid Culture - Preliminary Assessment and Plan (1) Acute appendicitis Narrative/Plan: 85-year-old female with abdominal fluid collections after recent appendicitis. Patient had postoperative hematoma formation. Possible percutaneous drainage to evaluate for infected hematoma. I do not suspect that is an option to be done here. Patient may require transfer. Continue antibiotics. Current Visit: No Status: Acute Code(s): K35.80 - UNSPECIFIED ACUTE APPENDICITIS SNOMED Code(s): 11749153
--- NOTE | 2025-04-08 13:55 | P.PN ---
Subjective Progress Note Date: 04/08/25 Patient is a 85 year old female with atrial fibrillation, DVT, hyperlipidemia, hypertension, osteoarthritis, hypothyroidism, cholecystectomy, hysterectomy status post appendectomy who presents with palpitations and shortness of breath. Symptoms occur with exertion and have been going on for over a week. She was discharged from this hospital 03/30/2025 where she had a laparoscopic appendectomy. Currently she is denying chest pain, cough. She is taken 1 dose of Xarelto since her discharge. She does endorse nausea and vomiting with a decreased appetite over the last few days. Her last bowel movement was 2 days ago. No recent fever or chills. She does endorse some mild abdominal pain which she feels is from her recent surgery. No other complaints at this time. ER findings: LabsWBC 16, hemoglobin 10.2, APTT 21.6, sodium 134, potassium 2.7, glucose 127, magnesium 1.3, total bilirubin 1.4, AST 45, troponin 0.022, proBNP 1300, TSH 12.3, free T4 1.09 Chest x-ray with findings of right subpulmonic effusion EKG independently interpreted as A-fib with RVR, rate 143, QTc 329. Lateral ST depression. 04/04/2025no acute events overnight. Denies chest pain or shortness of breath. Nausea improved. Possible thoracentesis 04/05/2025no acute events overnight. No complaints of shortness of breath or chest pain. Possible thoracentesis today. 04/06/2025no acute events overnight. No complaints of shortness of breath or chest pain. Thoracentesis yesterday 04/07/2025seen and examined at bedside. No acute events overnight. She has worsening generalized abdominal pain. No complaints of shortness of breath or chest pain. 04/08/2025-doing well today, no complaints, resting comfortably in bed. Pending IR aspiration evaluation on Thursday. Review of systems: Pertinent positives and negatives as discussed in HPI, a complete review of systems was performed and all other systems are negative. Vitals: Signs Reviewed PHYSICAL EXAMINATION: VITAL SIGNS: Reviewed GENERAL: Resting comfortably in bed. Obese. CARDIOVASCULAR: S1 and S2 present. No murmurs, rubs, or gallops. PULMONARY: Chest is clear to auscultation, no wheezing, rhonchi, or crackles. ABDOMEN: Soft, mild generalized tenderness, nondistended. No palpable organomegaly. NEUROLOGICAL: Alert and oriented x 3. Gross neurological examination with no apparent focal deficits. EXTREMITIES: No pedal edema. Today significant findings: LabsWBC 19.7, hemoglobin 10.4, sodium 132, BUN 25, creatinine 1.07, UA with significant squamous epithelial cells CT chest abdomen pelvis with 4 more organized appearing fluid collections within the abdomen along right paracolic gutter, right posterior hepatic margin, and posterior pelvis nocturnal gas, collections demonstrate peripheral enhancement. Previously characterized as intraperitoneal hematomas, may represent resolving hematomas however underlying super imposed abscess cannot be excluded right hepatic margin collection and pelvic collections have mildly increased in size. Also small right pleural effusion. Pleural fluid culture Gram stain few PMNs thus far Assessment/Plan: Patient is a 85 year old female with atrial fibrillation, DVT, hyperlipidemia, hypertension, osteoarthritis, hypothyroidism, cholecystectomy, hysterectomy, status post appendectomy who presents with palpitations and shortness of breath. Spoke with the ER physician and patient accepted by internal medicine for treatment. #Paroxysmal Atrial fibrillation, with RVR, now rate controlled #Dyspnea #Recent Appendectomy, with possible complication of abdominal abscesses # Right-sided exudative pleural effusion, s/p thoracentesis 900 mL removed #Leukocytosis, likely due to above Chest x-ray with findings of right subpulmonic effusion Ultrasound chest right-sided pleural effusion, pocket size 9.[address] abdomen with 4 organized appearing fluid collections, possible abscesses versus resolving hematomas IR aspiration possibly Thursday - otherwise needs ex lap or transfer Discontinue Cardizem drip Continue metoprolol 25 mg p.o. twice daily Resume Xarelto Begin Zosyn 3.375 every 8 hours Continuous cardiac monitoring Fluid cultures, cytology pending Monitor CBC, CMP and magnesium ID consulted Pulmonology following #Constipation Begin Metamucil and lactulose 30 g p.o. 3 times daily #Elevated TSH #Hypothyroidism Possible lab error versus euthyroid sick syndrome Initial TSH 12.3, free T4 1.09. TSH 0.08 earlier this month Resume Synthroid Monitor symptoms #Nausea vomiting, resolved #Severe hypokalemia, resolved #Hypomagnesemia, resolved Continue Zofran 4 mg every 8 hours as needed Given 1 g magnesium sulfate in ER, and later 3 g of magnesium sulfate Chronic medical conditions: #Hyperlipidemia #Hypertension #Anxiety/depression #Insomnia Resume home medications once reconciled DVT prophylaxis: Continue Xarelto CODE STATUS: FULL CODE Anticipated discharge date and place: Pending clinical course Dictation was produced using [employer] dictation software. please excuse any grammatical, word or spelling errors. Objective - Vital Signs Vital signs: Vital Signs Temp 98.2 F 04/08/25 12:00 Pulse 96 04/08/25 12:00 Resp 18 04/08/25 12:00 BP 130/72 04/08/25 12:00 Pulse Ox 91 L 04/08/25 12:00 FiO2 Intake & Output 04/07/25 04/08/25 04/08/25 18:59 06:59 18:59 Intake Total 0 Output Total 600 Balance 0 -600 Weight 96.1 kg Intake: Oral 0 Output: Urine 600 Other: Voiding Method External Catheter External Catheter External Catheter # Voids 2 # Bowel Movements 2 1 - Labs CBC & Chem 7: 04/08/25 06:42 04/08/25 06:42 Labs: Abnormal Lab Results - Last 24 Hours (Table) 04/08/25 04/08/25 Range/Units 06:42 06:42 WBC 17.39 H (4.50-10.00) 10*3/uL RBC 3.42 L (4.10-5.20) 10*6/uL Hgb 9.7 L (12.0-15.0) g/dL Hct 30.6 L (37.2-46.3) % MCHC 31.7 L (32.0-37.0) g/dL Plt Count 445 H (140-440) 10*3/uL MPV 9.1 L (9.5-12.2) fL Immature Gran # 0.59 H (0.00-0.04) 10*3/uL Neutrophils # 12.53 H (1.80-7.70) 10*3/uL Monocytes # 2.70 H (0.20-1.00) 10*3/uL Sodium 134 L (137-145) mmol/L BUN 23 H (7-17) mg/dL Creatinine 1.13 H (0.52-1.04) mg/dL Calcium 8.0 L (8.4-10.2) mg/dL Total Protein 5.3 L (6.3-8.2) g/dL Albumin 2.3 L (3.5-5.0) g/dL Microbiology - Last 24 Hours (Table) 04/07/25 04:00 Urine Culture - Preliminary Urine,Voided Yeast 04/05/25 15:00 Gram Stain - Preliminary Pleural Fluid Body Fluid Culture - Preliminary
--- NOTE | 2025-04-08 15:03 | P.PN ---
Subjective Progress Note Date: 04/08/25 Principal diagnosis: Reason for follow-up is abnormal CT question of abscess Patient is a 85-year-old female with a past medical history negative for atrial fibrillation DVT hypertension hyperlipidemia osteoarthritis in this patient who recently underwent laparoscopic appendectomy on 03/25/2025 postoperatively patient did have a significant drop in hemoglobin noted to be in the hospital with palpitation, patient did have leukocytosis with a CT abdominal pelvis right lower quadrant fluid collection a question of abscess. On today's evaluation that is 04/08/2024, patient did have a temperature of 98.1 F this morning and denies having any chills, patient is on room air and breathing comfortably no chest pain or cough, the patient did not have any nausea vomiting some right lower quadrant abdominal tenderness and did have a bowel movement. Patient white count is down to 17.39, creatinine is 1.13 Objective - Vital Signs Vital signs: Vital Signs Temp 98.1 F 04/08/25 08:37 Pulse 96 04/08/25 08:37 Resp 18 04/08/25 08:37 BP 148/72 04/08/25 08:37 Pulse Ox 93 L 04/08/25 08:37 FiO2 Intake & Output 04/07/25 04/08/25 04/08/25 18:59 06:59 18:59 Intake Total 0 Output Total 600 Balance 0 -600 Weight 96.1 kg Intake: Oral 0 Output: Urine 600 Other: Voiding Method External Catheter External Catheter External Catheter # Voids 2 # Bowel Movements 2 1 - Exam GENERAL DESCRIPTION: An elderly female lying in bed in no distress RESPIRATORY SYSTEM: Unlabored breathing , decreased breath sounds at bases HEART: S1 S2 regular rate and rhythm , ABDOMEN: Soft , mild right lower quadrant tenderness EXTREMITIES: No edema feet - Labs CBC & Chem 7: 04/08/25 06:42 04/08/25 06:42 Labs: Abnormal Lab Results - Last 24 Hours (Table) 04/07/25 04/08/25 04/08/25 Range/Units 09:03 06:42 06:42 WBC 17.39 H (4.50-10.00) 10*3/uL RBC 3.42 L (4.10-5.20) 10*6/uL Hgb 9.7 L (12.0-15.0) g/dL Hct 30.6 L (37.2-46.3) % MCHC 31.7 L (32.0-37.0) g/dL Plt Count 445 H (140-440) 10*3/uL MPV 9.1 L (9.5-12.2) fL Immature Gran # 0.59 H (0.00-0.04) 10*3/uL Neutrophils # 12.53 H (1.80-7.70) 10*3/uL Neutrophils # (Manual) 15.03 H (1.3-7.7) k/uL Monocytes # 2.70 H (0.20-1.00) 10*3/uL Monocytes # (Manual) 2.57 H (0-1.0) k/uL Metamyelocytes # (Man) 0.20 H (0) k/uL Myelocytes # (Manual) 0.40 H (0) k/uL Sodium 134 L (137-145) mmol/L BUN 23 H (7-17) mg/dL Creatinine 1.13 H (0.52-1.04) mg/dL Calcium 8.0 L (8.4-10.2) mg/dL Total Protein 5.3 L (6.3-8.2) g/dL Albumin 2.3 L (3.5-5.0) g/dL Microbiology - Last 24 Hours (Table) 04/07/25 04:00 Urine Culture - Preliminary Urine,Voided Yeast 04/05/25 15:00 Gram Stain - Preliminary Pleural Fluid Body Fluid Culture - Preliminary Assessment and Plan (1) Leukocytosis Current Visit: Yes Status: Acute Code(s): D72.829 - ELEVATED WHITE BLOOD CELL COUNT, UNSPECIFIED SNOMED Code(s): 358153045 (2) Allergy to sulfa drugs Current Visit: Yes Status: Acute Code(s): Z88.2 - ALLERGY STATUS TO SULFONAMIDES SNOMED Code(s): 02153136 (3) Intra-abdominal collection Current Visit: Yes Status: Acute Code(s): R18.8 - OTHER ASCITES SNOMED C ode(s): 038266086 Plan: 1patient will do have a history of appendicitis in this patient was status post laparoscopic appendectomy on 03/25/2025 with postop intra-abdominal hematoma in this patient who presented to the hospital mostly with palpitation and shortness of breath with the CT now showing more generalized fluid collection in the right lower quadrant area likely representing hematoma, infected hematoma abscess less likely but not excluded as the patient not running any fever he did not have any worsening abdominal pain or any tenderness 2-patient will benefit from IR drainage of that fluid collection which will be sent for Gram stain and culture 3-patient is remains to be afebrile the patient white count is trending down we will continue with Zosyn and monitor clinical course closely Dictation was produced using [employer] dictation software. please excuse any grammatical, word or spelling errors. Time with Patient: Less than 30
--- NOTE | 2025-04-08 16:02 | P.PN ---
Subjective Progress Note Date: 04/08/25 85-year-old female patient, who is post laparoscopic appendectomy that was performed on 03/25/2025, discharged home to be readmitted to the hospital because of worsening shortness of breath. The patient postop developed a drop in hemoglobin and a CAT scan of the abdomen and pelvis was ordered and showed a right peritoneal hematoma attributed to some bleeding following the surgery. There was no acute extravasation. The patient did require a unit of packed RBC and ultimately the patient was able to tolerate diet and she was having bowel movements and the patient was discharged home on oral Levaquin and Flagyl. The patient was readmitted to the hospital for worsening shortness of breath. She is known to have hypertension, hyperlipidemia, hypothyroidism and paroxysmal atrial fibrillation. Xarelto was held at the time of surgery and restarted on an outpatient basis. Reviewed the follow-up CAT scan of the chest that was done on 03/28/2025 and the patient was already developing a small right-sided pleural effusion in addition to the peritoneal hematoma that was discussed above. Follow-up chest x-ray done today in the emergency department shows a right-sided pleural effusion and ultrasound of the chest was also done confirming the findings and the patient was found to have a 9 cm pocket size pleural fluid on the right. Marking was performed. Nevertheless, thoracentesis was not perfo rmed today as the patient was taking anticoagulation on outpatient basis and the patient's anticoagulation is currently on hold. She is currently on room air oxygen. Her current cardiac rhythm is A-fib with RVR. The patient was seen by cardiology, initially started on Cardizem drip and this was ultimately discontinued and the patient is currently on metoprolol 25 mg p.o. twice a day and her heart rate is under better control. Afebrile. No chest pain. No pleurisy. No hemoptysis. 04/05/2025, the patient is being seen for a follow-up. On today's evaluation, the patient is essentially the same. Continues to have some shortness of breath. Based on that, I performed a bedside thoracentesis on the patient and a total of 900 cc of pleural fluid was aspirated from the right hemithorax without any complication. Follow-up chest x-ray showed no evidence of any pneumothorax and there was improvement in the aeration in the right lung base. There is some residual small right-sided pleural effusion and some mild atelectatic change in the right lung base. Overall findings have essentially improved. The patient did experience some pleuritic chest pain following the thoracentesis which ultimately recovered. She does have some chronic elevation of the right hemidiaphragm. The pleural fluid will be sent for analysis. The white cell count of 14.9. Hemoglobin 9.8 and a platelet count of 434. Electrolytes are within normal limits. BUN is 18 with a creatinine of 0.9. The patient is going to be restarted back on Xarelto postthoracentesis. 04/06/2025, the patient is being seen for a follow-up. The patient is stable. The patient underwent a thoracentesis of the right lung and the pleural fluid is an exudate. No complications following the thoracentesis. However, the patient is still weak, lethargic, complaining of crampy lower abdominal pain and for that reason, CAT scan of the chest abdomen and pelvis will be obtained. The patient is white cell count at 18 with a hemoglobin 10.8 and a platelet count of 436. BUN is 21 with a creatinine of 0.8. Sodium levels at 134. She is currently on room air oxygen with a pulse ox of 92%. Anticoagulation was restarted. No antibiotics for now. On 04/07/2025, the patient is being seen for a follow-up. Remains on room air o xygen. Pleural fluid was aspirated to not to be an exudate, awaiting cytology. Meanwhile, CAT scan of the abdomen and pelvis was done and the patient was found to have some abnormal collection in the abdomen as the patient was noted to have 4 more organized appearing fluid collections within the abdomen along the right paracolic gutter and right posterior hepatic margin and posterior pelvis. He matoma versus seroma versus abscess. She is having abdominal cramping and the patient will be asked to be seen again by general surgery. The patient is hemodynamically stable. She continues to have some mild leukocytosis. She is tolerating her diet. No nausea. No emesis. She is afebrile. White cell count at 19 with a heme of 10.4 and platelet count of 425. BUN is 25 with a creatinine of 1.07. Sodium is at 132. On 04/08/2025, the patient's condition is unchanged. Remains on room air oxygen. Occasional crampy abdominal pain. The patient was seen by general surgery and recommendations were made to have the patient seen by aftereffect radiology for possible drainage of the intra-abdominal collections. The patient currently is on IV Zosyn. Respiratory status is stable. The patient is currently on room air oxygen. Afebrile. Hemodynamically stable. No nausea. No emesis. No other complaints otherwise for now. Objective - Vital Signs Vital signs: Vital Signs Temp 98.1 F 04/08/25 08:37 Pulse 96 04/08/25 08:37 Resp 18 04/08/25 08:37 BP 148/72 04/08/25 08:37 Pulse Ox 93 L 04/08/25 08:37 FiO2 Intake & Output 04/07/25 04/08/25 04/08/25 18:59 06:59 18:59 Intake Total 0 Output Total 600 Balance 0 -600 Weight 96.1 kg Intake: Oral 0 Output: Urine 600 Other: Voiding Method External Catheter External Catheter External Catheter # Voids 2 # Bowel Movements 2 1 - Exam The patient appeared well nourished and normally developed. Vital signs as documented. The patient is currently on room air oxygen. The patient is morbidly obese with a BMI of 41.5 Head exam is unremarkable. No scleral icterus or corneal arcus noted. Neck is without jugular venous distension, thyromegaly, or carotid bruits. Carotid upstrokes are brisk bilaterally. Lungs revealed diminished breath sound right lung base along with dullness to percussion consistent with pleural effusion, and air entry in the right lung base improved following the thoracentesis Cardiac exam reveals the PMI to be normally sized and situated. Irregular consistent with atrial fibrillation. First and second heart sounds normal. No murmurs, rubs or gallops. Abdominal exam reveals normal bowel sounds, no masses, no organomegaly and no aortic enlargement. Extremities are nonedematous and both femoral and pedal pulses are normal. Examination of the skin revealed no evidence of significant rashes, suspicious appearing nevi or other concerning lesions. Neurologically, the patient is awake and alert and the patient does not have any focal neurological deficit. Cranial nerves are essentially intact. - Labs CBC & Chem 7: 04/08/25 06:42 04/08/25 06:42 Labs: Abnormal Lab Results - Last 24 Hours (Table) 04/07/25 04/08/25 04/08/25 Range/Units 09:03 06:42 06:42 WBC 17.39 H (4.50-10.00) 10*3/uL RBC 3.42 L (4.10-5.20) 10*6/uL Hgb 9.7 L (12.0-15.0) g/dL Hct 30.6 L (37.2-46.3) % MCHC 31.7 L (32.0-37.0) g/dL Plt Count 445 H (140-440) 10*3/uL MPV 9.1 L (9.5-12.2) fL Immature Gran # 0.59 H (0.00-0.04) 10*3/uL Neutrophils # 12.53 H (1.80-7.70) 10*3/uL Neutrophils # (Manual) 15.03 H (1.3-7.7) k/uL Monocytes # 2.70 H (0.20-1.00) 10*3/uL Monocytes # (Manual) 2.57 H (0-1.0) k/uL Metamyelocytes # (Man) 0.20 H (0) k/uL Myelocytes # (Manual) 0.40 H (0) k/uL Sodium 134 L (137-145) mmol/L BUN 23 H (7-17) mg/dL Creatinine 1.13 H (0.52-1.04) mg/dL Calcium 8.0 L (8.4-10.2) mg/dL Total Protein 5.3 L (6.3-8.2) g/dL Albumin 2.3 L (3.5-5.0) g/dL Microbiology - Last 24 Hours (Table) 04/07/25 04:00 Urine Culture - Preliminary Urine,Voided Yeast 04/05/25 15:00 Gram Stain - Preliminary Pleural Fluid Body Fluid Culture - Preliminary Assessment and Plan Plan: Right-sided pleural effusion, moderate size with secondary shortness of breath. This pleural effusion was initially noted on a CAT scan of the abdomen and pelvis that was done on 03/28/2025 to monitor the patient's postop drop in the hemoglobin. Subsequent chest x-ray from 03/30/2025 showed a right-sided pleural effusion and obviously the patient has become symptomatic postdischarge. Thoracentesis was performed on 04/05/2025 and a total of 900 cc of pleural fluid was aspirated without any complication. Subsequent chest x-ray showed no evidence of any pneumothorax. The pleural fluid aspirated is an exudate, awaiting cultures and cytology. Atrial fibrillation with RVR, rate is controlled and the patient is on metoprolol. Patient is also on anticoagulants with Xarelto. Acute appendicitis and the patient is post laparoscopic appendectomy. Surgery was performed on 03/25/2025. For now, the patient is having some crampy abdominal pain. She also has generalized weakness and some mild leukocytosis. The patient had a CAT scan of the chest abdomen pelvis and the patient was found to have 4 collections in the abdomen along the right paracolic gutter and Right posterior hepatic margin and pelvis. Will request a surgical consultation. This could be a seroma, hematoma versus abscess. The patient continues to have leukocytosis. Right peritoneal hematoma due to postoperative bleeding following surgery, hemoglobin remained stable. Leukocytosis with persistent elevated white cell count Hypothyroidism Hypertension Hyperlipidemia Skin cancer Previous history of DVT Osteoarthritis, and the patient has undergone a right hip replacement, right knee replacement and the patient is receiving chronic pain management through pain management services. Spinal stenosis History of duodenal ulcer History of parathyroidectomy History of chronic recurrent UTIs Previous history of ischemic colitis back in 2010 Mild to moderate aortic and mitral valve regurgitation with a preserved LV function with an ejection fraction of 55% based on echocardiogram from January 2024 Plan Thoracentesis was completed and the pleural fluid is an exudate, awaiting cultures and cytology Continue anticoagulation with Xarelto Cardiology to for management of atrial fibrillation. Patient is currently on metoprolol with a controlled rate Hemoglobin is stable CAT scans of the chest and abdomen and pelvis was noted, interventional radiology was consulted for possible IR guided drainage of the intra-abdominal collection General surgical consultation is appreciated Will continue to follow. Overall respiratory status is stable and the patient is currently on room air oxygen.
[2025-04-08] MEDS: NYSTATIN 100,000 UNIT/GM POWD 15 GM TOPICAL SCH (20:03)
[2025-04-09 07:55] LABS: INR 1.0 (<1.2); Prothrombin Time 11.0 sec (10.0-12.5)
--- NOTE | 2025-04-09 12:34 | P.PN ---
Subjective Progress Note Date: 04/09/25 Principal diagnosis: Post appendicitis Patient says she feels well today. Had 2 bowel movements yesterday. Minimal abdominal discomforts. Passing flatus. Mild nausea. No vomiting. White blood cell count yesterday 17.3. Today's is pending. No fevers. Objective - Vital Signs Vital signs: Vital Signs Temp 98.2 F 04/09/25 08:54 Pulse 79 04/09/25 11:47 Resp 18 04/09/25 11:47 BP 150/91 04/09/25 11:47 Pulse Ox 97 04/09/25 11:47 FiO2 Intake & Output 04/08/25 04/09/25 04/09/25 18:59 06:59 18:59 Intake Total 118 Output Total 350 175 Balance -232 -175 Intake: Oral 118 Output: Urine 350 175 Other: Voiding Method External Catheter External Catheter External Catheter # Bowel Movements 1 1 - Exam Abdomen: Soft, very mild right-sided abdominal tenderness, incisions clean and dry, minimal distention - Labs CBC & Chem 7: 04/08/25 06:42 04/08/25 06:42 Labs: Microbiology - Last 24 Hours (Table) 04/05/25 15:00 Gram Stain - Preliminary Pleural Fluid Body Fluid Culture - Preliminary 04/07/25 04:00 Urine Culture - Preliminary Urine,Voided Yeast Assessment and Plan (1) Acute appendicitis Narrative/Plan: Patient clinically improved today. Spoke with radiology yesterday. Apparently they are planning to do a aspiration of the right sided fluid collection to see if this is infected or not. This is scheduled for tomorrow. Continue diet for now. Continue antibiotics per infectious disease. Will follow. Current Visit: No Status: Acute Code(s): K35.80 - UNSPECIFIED ACUTE APPENDICITIS SNOMED Code(s): 16756802
--- NOTE | 2025-04-09 13:21 | P.PN ---
Subjective Progress Note Date: 04/09/25 Patient is a 85 year old female with atrial fibrillation, DVT, hyperlipidemia, hypertension, osteoarthritis, hypothyroidism, cholecystectomy, hysterectomy status post appendectomy who presents with palpitations and shortness of breath. Symptoms occur with exertion and have been going on for over a week. She was discharged from this hospital 03/30/2025 where she had a laparoscopic appendectomy. Currently she is denying chest pain, cough. She is taken 1 dose of Xarelto since her discharge. She does endorse nausea and vomiting with a decreased appetite over the last few days. Her last bowel movement was 2 days ago. No recent fever or chills. She does endorse some mild abdominal pain which she feels is from her recent surgery. No other complaints at this time. ER findings: LabsWBC 16, hemoglobin 10.2, APTT 21.6, sodium 134, potassium 2.7, glucose 127, magnesium 1.3, total bilirubin 1.4, AST 45, troponin 0.022, proBNP 1300, TSH 12.3, free T4 1.09 Chest x-ray with findings of right subpulmonic effusion EKG independently interpreted as A-fib with RVR, rate 143, QTc 329. Lateral ST depression. 04/04/2025no acute events overnight. Denies chest pain or shortness of breath. Nausea improved. Possible thoracentesis 04/05/2025no acute events overnight. No complaints of shortness of breath or chest pain. Possible thoracentesis today. 04/06/2025no acute events overnight. No complaints of shortness of breath or chest pain. Thoracentesis yesterday 04/07/2025seen and examined at bedside. No acute events overnight. She has worsening generalized abdominal pain. No complaints of shortness of breath or chest pain. 04/08/2025-doing well today, no complaints, resting comfortably in bed. Pending IR aspiration evaluation on Thursday. 04/09/2025-doing well today, no complaints, resting comfortably in bed. Pending IR aspiration evaluation on Thursday. Review of systems: Pertinent positives and negatives as discussed in HPI, a complete review of systems was performed and all other systems are negative. Vitals: Signs Reviewed PHYSICAL EXAMINATION: VITAL SIGNS: Reviewed GENERAL: Resting comfortably in bed. Obese. CARDIOVASCULAR: S1 and S2 present. No murmurs, rubs, or gallops. PULMONARY: Chest is clear to auscultation, no wheezing, rhonchi, or crackles. ABDOMEN: Soft, mild generalized tenderness, nondistended. No palpable organomegaly. NEUROLOGICAL: Alert and oriented x 3. Gross neurological examination with no apparent focal deficits. EXTREMITIES: No pedal edema. Today significant findings: LabsWBC 19.7, hemoglobin 10.4, sodium 132, BUN 25, creatinine 1.07, UA with significant squamous epithelial cells CT chest abdomen pelvis with 4 more organized appearing fluid collections within the abdomen along right paracolic gutter, right posterior hepatic margin, and posterior pelvis nocturnal gas, collections demonstrate peripheral enhancement. Previously characterized as intraperitoneal hematomas, may represent resolving hematomas however underlying super imposed abscess cannot be excluded right hepatic margin collection and pelvic collections have mildly increased in size. Also small right pleural effusion. Pleural fluid culture Gram stain few PMNs thus far Assessment/Plan: Patient is a 85 year old female with atrial fibrillation, DVT, hyperlipidemia, hypertension, osteoarthritis, hypothyroidism, cholecystectomy, hysterectomy, status post appendectomy who presents with palpitations and shortness of breath. Spoke with the ER physician and patient accepted by internal medicine for treatment. #Paroxysmal Atrial fibrillation, with RVR, now rate controlled #Dyspnea #Recent Appendectomy, with possible complication of abdominal abscesses # Right-sided exudative pleural effusion, s/p thoracentesis 900 mL removed #Leukocytosis, likely due to above Chest x-ray with findings of right subpulmonic effusion Ultrasound chest right-sided pleural effusion, pocket size 9.[address] abdomen with 4 organized appearing fluid collections, possible abscesses versus resolving hematomas IR aspiration possibly Thursday - otherwise needs ex lap or transfer Discontinue Cardizem drip Continue metoprolol 25 mg p.o. twice daily Resume Xarelto Begin Zosyn 3.375 every 8 hours Continuous cardiac monitoring Fluid cultures, cytology pending Monitor CBC, CMP and magnesium ID consulted Pulmonology following #Constipation Begin Metamucil and lactulose 30 g p.o. 3 times daily #Elevated TSH #Hypothyroidism Possible lab error versus euthyroid sick syndrome Initial TSH 12.3, free T4 1.09. TSH 0.08 earlier this month Resume Synthroid Monitor symptoms #Nausea vomiting, resolved #Severe hypokalemia, resolved #Hypomagnesemia, resolved Continue Zofran 4 mg every 8 hours as needed Given 1 g magnesium sulfate in ER, and later 3 g of magnesium sulfate Chronic medical conditions: #Hyperlipidemia #Hypertension #Anxiety/depression #Insomnia Resume home medications once reconciled DVT prophylaxis: Continue Xarelto CODE STATUS: FULL CODE Anticipated discharge date and place: Pending clinical course Dictation was produced using [employer] dictation software. please excuse any grammatical, word or spelling errors. Objective - Vital Signs Vital signs: Vital Signs Temp 98.2 F 04/09/25 08:54 Pulse 79 04/09/25 11:47 Resp 18 04/09/25 11:47 BP 150/91 04/09/25 11:47 Pulse Ox 97 04/09/25 11:47 FiO2 Intake & Output 04/08/25 04/09/25 04/09/25 18:59 06:59 18:59 Intake Total 118 Output Total 350 175 Balance -232 -175 Intake: Oral 118 Output: Urine 350 175 Other: Voiding Method External Catheter External Catheter External Catheter # Bowel Movements 1 1 - Labs CBC & Chem 7: 04/08/25 06:42 04/08/25 06:42 Labs: Microbiology - Last 24 Hours (Table) 04/05/25 15:00 Gram Stain - Preliminary Pleural Fluid Body Fluid Culture - Preliminary
--- NOTE | 2025-04-09 15:20 | P.PN ---
Subjective Progress Note Date: 04/09/25 Principal diagnosis: Reason for follow-up is abnormal CT question of abscess Patient is a 85-year-old female with a past medical history negative for atrial fibrillation DVT hypertension hyperlipidemia osteoarthritis in this patient who recently underwent laparoscopic appendectomy on 03/25/2025 postoperatively patient did have a significant drop in hemoglobin noted to be in the hospital with palpitation, patient did have leukocytosis with a CT abdominal pelvis right lower quadrant fluid collection a question of abscess. On today's evaluation that is 04/09/2025, Patient is afebrile patient is currently on 2 L current oxygen and denies having any shortness of breath, the patient denies any chest pain, occasional cough, the patient denies any nausea vomiting did not have any abdominal pain and no diarrhea. Patient work on Dr. [email or web address] as of yesterday no CBC was done today urine is growing yeast pleural fluid cultures so far negative Objective - Vital Signs Vital signs: Vital Signs Temp 98.2 F 04/09/25 08:54 Pulse 79 04/09/25 11:47 Resp 18 04/09/25 11:47 BP 150/91 04/09/25 11:47 Pulse Ox 97 04/09/25 11:47 FiO2 Intake & Output 04/08/25 04/09/25 04/09/25 18:59 06:59 18:59 Intake Total 118 240 Output Total 350 175 Balance -232 -175 240 Intake: Oral 118 240 Output: Urine 350 175 Other: Voiding Method External Catheter External Catheter External Catheter # Bowel Movements 1 1 - Exam GENERAL DESCRIPTION: An elderly female lying in bed in no distress RESPIRATORY SYSTEM: Unlabored breathing , decreased breath sounds at bases HEART: S1 S2 regular rate and rhythm , ABDOMEN: Soft , mild right lower quadrant tenderness EXTREMITIES: No edema feet - Labs CBC & Chem 7: 04/08/25 06:42 04/08/25 06:42 Labs: Microbiology - Last 24 Hours (Table) 04/07/25 04:00 Urine Culture - Final Urine,Voided Yeast 04/05/25 15:00 Gram Stain - Preliminary Pleural Fluid Body Fluid Culture - Preliminary Assessment and Plan (1) Leukocytosis Current Visit: Yes Status: Acute Code(s): D72.829 - ELEVATED WHITE BLOOD CELL COUNT, UNSPECIFIED SNOMED Code(s): 911519045 (2) Allergy to sulfa drugs Current Visit: Yes Status: Acute Code(s): Z88.2 - ALLERGY STATUS TO SULFONAMIDES SNOMED Code(s): 53202223 (3) Intra-abdominal collection Current Visit: Yes Status: Acute Code(s): R18.8 - OTHER ASCITES SNOMED Code(s): 990400454 Plan: 1patient will do have a history of appendicitis in this patient was status post laparoscopic appendectomy on 03/25/2025 with postop intra-abdominal hematoma in this patient who presented to the hospital mostly with palpitation and shortness of breath with the CT now showing more generalized fluid collection in the right lower quadrant area likely representing hematoma, infected hematoma abscess less likely but not excluded as the patient not running any fever he did not have any worsening abdominal pain or any tenderness 2-patient apparent scheduled for IR drainage of this fluid collection which should be sent for culture 3-patient is remains to be afebrile the patient white count is trending down as of yesterday no CBC was done today 4we will continue with Zosyn and monitor clinical course closely Dictation was produced using [employer] dictation software. please excuse any grammatical, word or spelling errors. Time with Patient: Less than 30
--- NOTE | 2025-04-09 18:47 | P.PN ---
Subjective Progress Note Date: 04/09/25 85-year-old female patient, who is post laparoscopic appendectomy that was performed on 03/25/2025, discharged home to be readmitted to the hospital because of worsening shortness of breath. The patient postop developed a drop in hemoglobin and a CAT scan of the abdomen and pelvis was ordered and showed a right peritoneal hematoma attributed to some bleeding following the surgery. There was no acute extravasation. The patient did require a unit of packed RBC and ultimately the patient was able to tolerate diet and she was having bowel movements and the patient was discharged home on oral Levaquin and Flagyl. The patient was readmitted to the hospital for worsening shortness of breath. She is known to have hypertension, hyperlipidemia, hypothyroidism and paroxysmal atrial fibrillation. Xarelto was held at the time of surgery and restarted on an outpatient basis. Reviewed the follow-up CAT scan of the chest that was done on 03/28/2025 and the patient was already developing a small right-sided pleural effusion in addition to the peritoneal hematoma that was discussed above. Follow-up chest x-ray done today in the emergency department shows a right-sided pleural effusion and ultrasound of the chest was also done confirming the findings and the patient was found to have a 9 cm pocket size pleural fluid on the right. Marking was performed. Nevertheless, thoracentesis was not perfo rmed today as the patient was taking anticoagulation on outpatient basis and the patient's anticoagulation is currently on hold. She is currently on room air oxygen. Her current cardiac rhythm is A-fib with RVR. The patient was seen by cardiology, initially started on Cardizem drip and this was ultimately discontinued and the patient is currently on metoprolol 25 mg p.o. twice a day and her heart rate is under better control. Afebrile. No chest pain. No pleurisy. No hemoptysis. 04/05/2025, the patient is being seen for a follow-up. On today's evaluation, the patient is essentially the same. Continues to have some shortness of breath. Based on that, I performed a bedside thoracentesis on the patient and a total of 900 cc of pleural fluid was aspirated from the right hemithorax without any complication. Follow-up chest x-ray showed no evidence of any pneumothorax and there was improvement in the aeration in the right lung base. There is some residual small right-sided pleural effusion and some mild atelectatic change in the right lung base. Overall findings have essentially improved. The patient did experience some pleuritic chest pain following the thoracentesis which ultimately recovered. She does have some chronic elevation of the right hemidiaphragm. The pleural fluid will be sent for analysis. The white cell count of 14.9. Hemoglobin 9.8 and a platelet count of 434. Electrolytes are within normal limits. BUN is 18 with a creatinine of 0.9. The patient is going to be restarted back on Xarelto postthoracentesis. 04/06/2025, the patient is being seen for a follow-up. The patient is stable. The patient underwent a thoracentesis of the right lung and the pleural fluid is an exudate. No complications following the thoracentesis. However, the patient is still weak, lethargic, complaining of crampy lower abdominal pain and for that reason, CAT scan of the chest abdomen and pelvis will be obtained. The patient is white cell count at 18 with a hemoglobin 10.8 and a platelet count of 436. BUN is 21 with a creatinine of 0.8. Sodium levels at 134. She is currently on room air oxygen with a pulse ox of 92%. Anticoagulation was restarted. No antibiotics for now. On 04/07/2025, the patient is being seen for a follow-up. Remains on room air o xygen. Pleural fluid was aspirated to not to be an exudate, awaiting cytology. Meanwhile, CAT scan of the abdomen and pelvis was done and the patient was found to have some abnormal collection in the abdomen as the patient was noted to have 4 more organized appearing fluid collections within the abdomen along the right paracolic gutter and right posterior hepatic margin and posterior pelvis. He matoma versus seroma versus abscess. She is having abdominal cramping and the patient will be asked to be seen again by general surgery. The patient is hemodynamically stable. She continues to have some mild leukocytosis. She is tolerating her diet. No nausea. No emesis. She is afebrile. White cell count at 19 with a heme of 10.4 and platelet count of 425. BUN is 25 with a creatinine of 1.07. Sodium is at 132. On 04/08/2025, the patient's condition is unchanged. Remains on room air oxygen. Occasional crampy abdominal pain. The patient was seen by general surgery and recommendations were made to have the patient seen by aftereffect radiology for possible drainage of the intra-abdominal collections. The patient currently is on IV Zosyn. Respiratory status is stable. The patient is currently on room air oxygen. Afebrile. Hemodynamically stable. No nausea. No emesis. No other complaints otherwise for now. On 04/09/2025, no new complaints and the patient is currently resting comfortably in bed. No significant chest pain. No cough or sputum production. No chest ti ghtness or wheezing. Occasional abdominal cramping. General surgery is on the case. Interventional radiology will be involved with the next 24 hours incarceration for possible drainage of the collection in the abdomen that was noted on the CAT scan of the abdomen that was done earlier. Otherwise, the patient has no fever. The most recent white cell count from yesterday was 17. 9.7 and a platelet count of 445. Normal coagulation profile. Remains on IV Zosyn. No active respiratory difficulties for now and the patient is currently on tracheobronchomalacia cannula with a pulse ox of 95%. She is postthoracentesis. Objective - Vital Signs Vital signs: Vital Signs Temp 98.2 F 04/09/25 08:54 Pulse 79 04/09/25 11:47 Resp 18 04/09/25 11:47 BP 150/91 04/09/25 11:47 Pulse Ox 97 04/09/25 11:47 FiO2 Intake & Output 04/08/25 04/09/25 04/09/25 18:59 06:59 18:59 Intake Total 118 Output Total 350 175 Balance -232 -175 Intake: Oral 118 Output: Urine 350 175 Other: Voiding Method External Catheter External Catheter External Catheter # Bowel Movements 1 1 - Exam The patient appeared well nourished and normally developed. Vital signs as documented. The patient is morbidly obese with a BMI of 41.5, currently on 2 L of oxygen by nasal cannula Head exam is unremarkable. No scleral icterus or corneal arcus noted. Neck is without jugular venous distension, thyromegaly, or carotid bruits. Carotid upstrokes are brisk bilaterally. Lungs revealed diminished breath sound right lung base along with dullness to percussion consistent with pleural effusion, and air entry in the right lung base improved following the thoracentesis Cardiac exam reveals the PMI to be normally sized and situated. Irregular consistent with atrial fibrillation. First and second heart sounds normal. No murmurs, rubs or gallops. Abdominal exam reveals normal bowel sounds, no masses, no organomegaly and no aortic enlargement. Extremities are nonedematous and both femoral and pedal pulses are normal. Examination of the skin revealed no evidence of significant rashes, suspicious appearing nevi or other concerning lesions. Neurologically, the patient is awake and alert and the patient does not have any focal neurological deficit. Cranial nerves are essentially intact. - Labs CBC & Chem 7: 04/08/25 06:42 04/08/25 06:42 Labs: Microbiology - Last 24 Hours (Table) 04/05/25 15:00 Gram Stain - Preliminary Pleural Fluid Body Fluid Culture - Preliminary 04/07/25 04:00 Urine Culture - Preliminary Urine,Voided Yeast Assessment and Plan Plan: Right-sided pleural effusion, moderate size with secondary shortness of breath. This pleural effusion was initially noted on a CAT scan of the abdomen and pelvis that was done on 03/28/2025 to monitor the patient's postop drop in the hemoglobin. Subsequent chest x-ray from 03/30/2025 showed a right-sided pleural effusion and obviously the patient has become symptomatic postdischarge. Thoracentesis was performed on 04/05/2025 and a total of 900 cc of pleural fluid was aspirated without any complication. Subsequent chest x-ray showed no eviden ce of any pneumothorax. The pleural fluid aspirated is an exudate, awaiting cultures and cytology. Atrial fibrillation with RVR, rate is controlled and the patient is on metoprolol. Patient is also on anticoagulants with Xarelto. Acute appendicitis and the patient is post laparoscopic appendectomy. Surgery was performed on 03/25/2025. For now, the patient is having some crampy abdominal pain. She also has generalized weakness and some mild leukocytosis. The patient had a CAT scan of the chest abdomen pelvis and the patient was found to have 4 collections in the abdomen along the right paracolic gutter and Right posterior hepatic margin and pelvis. Will request a surgical consultation. This could be a seroma, hematoma versus abscess. The patient continues to have leukocytosis. Right peritoneal hematoma due to postoperative bleeding following surgery, hemoglobin remained stable. Leukocytosis with persistent elevated white cell count Hypothyroidism Hypertension Hyperlipidemia Skin cancer Previous history of DVT Osteoarthritis, and the patient has undergone a right hip replacement, right knee replacement and the patient is [facility]. Spinal stenosis History of duodenal ulcer History of parathyroidectomy History of chronic recurrent UTIs Previous history of ischemic colitis back in 2010 Mild to moderate aortic and mitral valve regurgitation with a preserved LV function with an ejection fraction of 55% based on echocardiogram from January 2024 Plan Thoracentesis was completed and the pleural fluid is an exudate, awaiting cultures and cytology Continue anticoagulation with Xarelto No active pulmonary issues for now. However, the patient will need surgical follow-up and possible IR guided drainage of the intra-abdominal collection that was noted on the CAT scan of the abdomen. Cardiology to for management of atrial fibrillation. Patient is currently on metoprolol with a controlled rate Hemoglobin is stable CAT scans of the chest and abdomen and pelvis was noted, interventional radiology was consulted for possible IR guided drainage of the intra-abdominal collection General surgical consultation is appreciated Respiratory status is stable for now.
[2025-04-10 05:14] LABS: Basophils # (A) 0.08 10*3/uL (0.00-0.10); Basophils % (A) 0.8 %; Eosinophils # (A) 0.20 10*3/uL (0.04-0.35); Eosinophils % (A) 1.9 %; HCT 29.9 % (37.2-46.3); HGB 9.4 g/dL (12.0-15.0); Lymphocytes # (A) 1.10 10*3/uL (0.90-5.00); Lymphocytes % (A) 10.5 %; MCH 28.6 pg (27.0-32.0); MCHC 31.4 g/dL (32.0-37.0); MCV 90.9 fL (80.0-97.0); Monocytes # (A) 1.62 10*3/uL (0.20-1.00); Monocytes % (A) 15.4 %; Neutrophils # (A) 7.25 10*3/uL (1.80-7.70); Neutrophils % (A) 69.0 %; Platelet Count 489 10*3/uL (140-440); RBC 3.29 10*6/uL (4.10-5.20); RDW 16.1 % (11.5-14.5); WBC 10.50 10*3/uL (4.50-10.00)
[2025-04-10 05:31] LABS: African American GFR (CKD) 87 (>60 ml/min/1.73 sqM); Anion Gap 9 mmol/L; Blood Urea Nitrogen 16 mg/dL (7-17); Calcium 8.0 mg/dL (8.4-10.2); Carbon Dioxide 23 mmol/L (22-30); Chloride 103 mmol/L (98-107); Glucose 89 mg/dL (74-99); Magnesium 1.8 mg/dL (1.6-2.3); Non-African American GFR(CKD) 76 (>60 ml/min/1.73 sqM); Potassium 4.1 mmol/L (3.5-5.1); Sodium 135 mmol/L (137-145)
[2025-04-10 12:32] VITALS: BMI 40.4
--- NOTE | 2025-04-10 14:55 | P.PN ---
Subjective Progress Note Date: 04/10/25 Patient is a 85 year old female with atrial fibrillation, DVT, hyperlipidemia, hypertension, osteoarthritis, hypothyroidism, cholecystectomy, hysterectomy status post appendectomy who presents with palpitations and shortness of breath. Symptoms occur with exertion and have been going on for over a week. She was discharged from this hospital 03/30/2025 where she had a laparoscopic appendectomy. Currently she is denying chest pain, cough. She is taken 1 dose of Xarelto since her discharge. She does endorse nausea and vomiting with a decreased appetite over the last few days. Her last bowel movement was 2 days ago. No recent fever or chills. She does endorse some mild abdominal pain which she feels is from her recent surgery. No other complaints at this time. 04/04/2025no acute events overnight. Denies chest pain or shortness of breath. Nausea improved. Possible thoracentesis 04/05/2025no acute events overnight. No complaints of shortness of breath or chest pain. Possible thoracentesis today. 04/06/2025no acute events overnight. No complaints of shortness of breath or chest pain. Thoracentesis yesterday 04/07/2025seen and examined at bedside. No acute events overnight. She has worsening generalized abdominal pain. No complaints of shortness of breath or chest pain. 04/08/2025-doing well today, no complaints, resting comfortably in bed. Pending IR aspiration evaluation on Thursday. 04/09/2025-doing well today, no complaints, resting comfortably in bed. Pending IR aspiration evaluation on Thursday. 04/10/2025-doing well today, no complaints, resting comfortably in bed. IR aspiration to be completed today. Review of systems: Pertinent positives and negatives as discussed in HPI, a complete review of systems was performed and all other systems are negative. Vitals: Signs Reviewed PHYSICAL EXAMINATION: VITAL SIGNS: Reviewed GENERAL: Resting comfortably in bed. Obese. CARDIOVASCULAR: S1 and S2 present. No murmurs, rubs, or gallops. PULMONARY: Chest is clear to auscultation, no wheezing, rhonchi, or crackles. ABDOMEN: Soft, no tenderness, nondistended. No palpable organomegaly. NEUROLOGICAL: Alert and oriented x 3. Gross neurological examination with no apparent focal deficits. EXTREMITIES: No pedal edema. Today significant findings: LabsWBC 10.5, hemoglobin 9.4, platelets 489, sodium 135, BUN 16, creatinine 0.78 No new imaging Urine culture with findings of yeast Assessment/Plan: Patient is a 85 year old female with atrial fibrillation, DVT, hyperlipidemia, hypertension, osteoarthritis, hypothyroidism, cholecystectomy, hysterectomy, st atus post appendectomy who presents with palpitations and shortness of breath. Spoke with the ER physician and patient accepted by internal medicine for treatment. #Paroxysmal Atrial fibrillation, with RVR, now rate controlled #Dyspnea #Recent Appendectomy, with possible complication of abdominal abscesses # Right-sided exudative pleural effusion, s/p thoracentesis 900 mL removed #Leukocytosis, likely due to above Chest x-ray with findings of right subpulmonic effusion Ultrasound chest right-sided pleural effusion, pocket size 9.[address] abdomen with 4 organized appearing fluid collections, possible abscesses versus resolving hematomas IR aspiration possibly Thursday - otherwise needs ex lap or transfer Discontinue Cardizem drip Continue metoprolol 25 mg p.o. twice daily Hold Xarelto Continue Zosyn 3.375 every 8 hours Continuous cardiac monitoring Fluid cultures, cytology pending Monitor CBC, CMP and magnesium ID consulted Pulmonology following IR consulted, abdominal aspiration planned today #Constipation Begin Metamucil and lactulose 30 g p.o. 3 times daily #Elevated TSH #Hypothyroidism Possible lab error versus euthyroid sick syndrome Initial TSH 12.3, free T4 1.09. TSH 0.08 earlier this month Resume Synthroid Monitor symptoms #Nausea vomiting, resolved #Severe hypokalemia, resolved #Hypomagnesemia, resolved Continue Zofran 4 mg every 8 hours as needed Given 1 g magnesium sulfate in ER, and later 3 g of magnesium sulfate Chronic medical conditions: #Hyperlipidemia #Hypertension #Anxiety/depression #Insomnia Resume home medications once reconciled DVT prophylaxis: Hold Xarelto CODE STATUS: FULL CODE Anticipated discharge date and place: Pending clinical course Satnam Maloney MD Internal Medicine Resident, PGY1 Dictation was produced using [employer] dictation software. please excuse any grammatical, word or spelling errors. I saw and evaluated the patient during the moss and critical portions of this encounter, and discussed the case in detail with the resident author of this note, I agree with the Assessment and Plan, and my changes, if any, are highlighted in blue. Objective - Vital Signs Vital signs: Vital Signs Temp 97.9 F 04/10/25 02:25 Pulse 92 04/10/25 02:25 Resp 20 04/10/25 02:25 BP 163/77 04/10/25 02:25 Pulse Ox 96 04/10/25 02:25 FiO2 Intake & Output 04/09/25 04/09/25 04/10/25 06:59 18:59 06:59 Intake Total 480 Output Total 175 150 Balance -175 480 -150 Weight 97 kg Intake: Oral 480 Output: Urine 175 150 Other: Voiding Method External Catheter External Catheter External Catheter # Voids 1 # Bowel Movements 1 1 - Labs CBC & Chem 7: 04/10/25 04:09 04/10/25 04:09 Labs: Abnormal Lab Results - Last 24 Hours (Table) 04/10/25 04/10/25 Range/Units 04:09 04:09 WBC 10.50 H (4.50-10.00) 10*3/uL RBC 3.29 L (4.10-5.20) 10*6/uL Hgb 9.4 L (12.0-15.0) g/dL Hct 29.9 L (37.2-46.3) % MCHC 31.4 L (32.0-37.0) g/dL Plt Count 489 H (140-440) 10*3/uL MPV 8.9 L (9.5-12.2) fL Immature Gran # 0.25 H (0.00-0.04) 10*3/uL Monocytes # 1.62 H (0.20-1.00) 10*3/uL Sodium 135 L (137-145) mmol/L Calcium 8.0 L (8.4-10.2) mg/dL Microbiology - Last 24 Hours (Table) 04/07/25 04:00 Urine Culture - Final Urine,Voided Yeast 04/05/25 15:00 Gram Stain - Preliminary Pleural Fluid Body Fluid Culture - Preliminary
--- NOTE | 2025-04-10 15:40 | CT ---
EXAMINATION TYPE: CT guided abscess drainage with catheter placement DATE OF EXAM: 04/10/2025 3:28 PM CLINICAL INDICATION:Female, 85 years old with history of Rt sided abscess drainage. Patient with intr a-abdominal fluid collections after appendectomy. COMPARISON: 04/06/2025 ATTENDING: Dr. Montgomery TECHNIQUE: CT guided percutaneous aspiration and catheter placement of the right paracolic fluid collection. The patient was monitored by a qualified trained nurse independent of the Radiologist during sedation . FINDINGS: The procedure was explained to the patient. All questions were answered and informed consent was obta ined. The patient was placed supine and transverse ultrasound images of the right paracolic fluid collectio n were obtained. The overlying skin was marked and prepped using sterile method. Timeout was taken per protocol. 10 mL of 1% Lidocaine was utilized to anesthetize the superficial and deep soft tissues under direct ultrasound guidance. Following that, a skin william was made and through that skin william, an 8.5 Mongolian catheter system was ad vanced into the fluid collection with CT guidance. The pigtail loop was formed and secured as the sty lette/introducer was removed. Initial aspiration of 35 mL of thick, dark red fluid which is labeled and sent for laboratory analysi s. The catheter was subsequently connected to a drainage bag and secured with a StayFix device. Patient tolerated the procedure well and sent back to inpatient room in satisfactory condition. IMPRESSIONS: Status post CT guided drainage catheter placement into the patient's right paracolic fluid collection . Thick bloody aspirate was obtained. Laboratory analysis pending. [facility], , 04/10/2025 3:38 PM
--- NOTE | 2025-04-10 17:52 | P.PN ---
Subjective Progress Note Date: 04/10/25 Principal diagnosis: Post appendicitis Patient doing well today. No significant pain. Had her aspiration of the right sided fluid collection performed. A drain was actually left. It is bloody fluid. Cultures are pending. White blood cell count normal. Objective - Vital Signs Vital signs: Vital Signs Temp 98.2 F 04/10/25 08:11 Pulse 85 04/10/25 15:10 Resp 18 04/10/25 15:25 BP 158/73 04/10/25 15:25 Pulse Ox 97 04/10/25 15:25 FiO2 Intake & Output 04/09/25 04/10/25 04/10/25 18:59 06:59 18:59 Intake Total 480 Output Total 150 Balance 480 -150 Weight 97 kg 97 kg Intake: Oral 480 Output: Urine 150 Other: Voiding Method External Catheter External Catheter External Catheter # Voids 1 # Bowel Movements 1 - Exam Abdomen: Soft, very mild right-sided abdominal tenderness, incisions clean and dry, minimal distention - Labs CBC & Chem 7: 04/10/25 04:09 04/10/25 04:09 Labs: Abnormal Lab Results - Last 24 Hours (Table) 04/10/25 04/10/25 Range/Units 04:09 04:09 WBC 10.50 H (4.50-10.00) 10*3/uL RBC 3.29 L (4.10-5.20) 10*6/uL Hgb 9.4 L (12.0-15.0) g/dL Hct 29.9 L (37.2-46.3) % MCHC 31.4 L (32.0-37.0) g/dL Plt Count 489 H (140-440) 10*3/uL MPV 8.9 L (9.5-12.2) fL Immature Gran # 0.25 H (0.00-0.04) 10*3/uL Monocytes # 1.62 H (0.20-1.00) 10*3/uL Sodium 135 L (137-145) mmol/L Calcium 8.0 L (8.4-10.2) mg/dL Microbiology - Last 24 Hours (Table) 04/05/25 15:00 Gram Stain - Final Pleural Fluid Body Fluid Culture - Final 04/07/25 04:00 Urine Culture - Final Urine,Voided Yeast Assessment and Plan (1) Acute appendicitis Narrative/Plan: 85-year-old female with right sided fluid collection and pelvic fluid collections after recent appendicitis with postoperative hemorrhage. Await cultures. Continue antibiotics. Continue diet. Current Visit: No Status: Acute Code(s): K35.80 - UNSPECIFIED ACUTE APPENDICITIS SNOMED Code(s): 59983994
[2025-04-11 05:16] LABS: Basophils # (A) 0.07 10*3/uL (0.00-0.10); Basophils % (A) 0.8 %; Eosinophils # (A) 0.16 10*3/uL (0.04-0.35); Eosinophils % (A) 1.9 %; HCT 29.3 % (37.2-46.3); HGB 9.3 g/dL (12.0-15.0); Lymphocytes # (A) 1.05 10*3/uL (0.90-5.00); Lymphocytes % (A) 12.4 %; MCH 28.5 pg (27.0-32.0); MCHC 31.7 g/dL (32.0-37.0); MCV 89.9 fL (80.0-97.0); Monocytes # (A) 1.40 10*3/uL (0.20-1.00); Monocytes % (A) 16.5 %; Neutrophils # (A) 5.64 10*3/uL (1.80-7.70); Neutrophils % (A) 66.6 %; Platelet Count 571 10*3/uL (140-440); RBC 3.26 10*6/uL (4.10-5.20); RDW 15.5 % (11.5-14.5); WBC 8.47 10*3/uL (4.50-10.00)
[2025-04-11 05:30] LABS: African American GFR (CKD) 72 (>60 ml/min/1.73 sqM); Anion Gap 7 mmol/L; Blood Urea Nitrogen 15 mg/dL (7-17); Calcium 8.1 mg/dL (8.4-10.2); Carbon Dioxide 26 mmol/L (22-30); Chloride 102 mmol/L (98-107); Glucose 87 mg/dL (74-99); Magnesium 1.8 mg/dL (1.6-2.3); Non-African American GFR(CKD) 62 (>60 ml/min/1.73 sqM); Potassium 4.1 mmol/L (3.5-5.1); Sodium 135 mmol/L (137-145)
[2025-04-11 05:59] LABS: Appearance,BF Grossly Bloody (Clear)
--- NOTE | 2025-04-11 13:34 | P.PN ---
Subjective Progress Note Date: 04/11/25 SURGICAL PROGRESS NOTE CHIEF COMPLAINT: Post appendicitis HISTORY OF PRESENT ILLNESS: Patient sitting at bedside chair. She denies any significant abdominal pain. She is status post CT-guided drain placement. Output is dark blood 30 mL. Cultures pending. Afebrile. WBC normal at 8.47 Hgb stable at 9.3 PHYSICAL EXAM: VITAL SIGNS: Reviewed. GENERAL: Well-developed in no acute distress. HEENT: No sclera icterus. Extraocular movements grossly intact. Moist buccal mucosa. Head is atraumatic, normocephalic. ABDOMEN: Soft. Nondistended. Mild tenderness right lower quadrant. There is some ecchymosis noted lower abdomen. Incision sites clean dry and intact. Drain in place NEUROLOGIC: Alert and oriented. Cranial nerves II through XII grossly intact. ASSESSMENT: 1. Right-sided fluid collection and pelvic fluid collection after recent appendicitis with postoperative hemorrhage status post CT-guided drain placement PLAN: -Continue drain placed by IR service -Xarelto can be restarted from surgical standpoint. Recommend checking with IR service before resuming Xarelto -Continue antibiotics -No surgical intervention planned Physician [employer] note has been reviewed by physician. Signing provider agrees with the documented findings, assessment, and plan of care. I have personally seen and examined the patient, reviewed the [employer] /PAs history, exam and MDM and agree with the assessment and plan as written. Based on total visit time, I have performed more than 50% of the visit. As above: Patient's drain output still bloody. Complaining of nausea today. No significant pain. Continue regular diet but monitor for ongoing nausea. If vomiting occurs consider decreasing diet. Follow cultures. Continue antibiotics. Objective - Vital Signs Vital signs: Vital Signs Temp 98.4 F 04/11/25 07:04 Pulse 85 04/11/25 07:04 Resp 17 04/11/25 07:04 BP 184/76 04/11/25 07:04 Pulse Ox 94 L 04/11/25 07:04 FiO2 Intake & Output 04/10/25 04/11/25 04/11/25 18:59 06:59 18:59 Intake Total 240 10 Output Total 580 250 Balance -340 -240 Weight 97 kg Intake: IV 10 Invasive Line 5 10 Oral 240 Output: Drainage 30 Right Abdomen 30 Urine 550 250 Other: Voiding Method External Catheter External Catheter External Catheter - Labs CBC & Chem 7: 04/11/25 04:44 04/11/25 04:44 Labs: Abnormal Lab Results - Last 24 Hours (Table) 04/10/25 04/11/25 04/11/25 Range/Units 15:30 04:44 04:44 RBC 3.26 L (4.10-5.20) 10*6/uL Hgb 9.3 L (12.0-15.0) g/dL Hct 29.3 L (37.2-46.3) % MCHC 31.7 L (32.0-37.0) g/dL Plt Count 571 H (140-440) 10*3/uL MPV 8.7 L (9.5-12.2) fL Immature Gran # 0.15 H (0.00-0.04) 10*3/uL Monocytes # 1.40 H (0.20-1.00) 10*3/uL Sodium 135 L (137-145) mmol/L Calcium 8.1 L (8.4-10.2) mg/dL Fluid Appearance Grossly Bloody A (Clear)
--- NOTE | 2025-04-11 15:56 | P.PN ---
Subjective Progress Note Date: 04/10/25 Principal diagnosis: Reason for follow-up is abnormal CT question of abscess Patient is a 85-year-old female with a past medical history negative for atrial fibrillation DVT hypertension hyperlipidemia osteoarthritis in this patient who recently underwent laparoscopic appendectomy on 03/25/2025 postoperatively patient did have a significant drop in hemoglobin noted to be in the hospital with palpitation, patient did have leukocytosis with a CT abdominal pelvis right lower quadrant fluid collection a question of abscess. On today's evaluation that is 04/10/2025, patient has been afebrile, patient is breathing comfortably and is currently on room air, patient denies having any chest pain and cough, patient denies nausea vomiting or diarrhea and no worsening abdominal pain. No new lab has been repeated today Objective - Vital Signs Vital signs: Vital Signs Temp 98.0 F 04/10/25 14:00 Pulse 76 04/10/25 14:00 Resp 14 04/10/25 14:00 BP 156/78 04/10/25 14:00 Pulse Ox 93 L 04/10/25 14:00 FiO2 - Exam GENERAL DESCRIPTION: An elderly female lying in bed in no distress RESPIRATORY SYSTEM: Unlabored breathing , decreased breath sounds at bases HEART: S1 S2 regular rate and rhythm , ABDOMEN: Soft , mild right lower quadrant tenderness EXTREMITIES: No edema feet - Labs CBC & Chem 7: 04/11/25 04:44 04/11/25 04:44 Labs: Abnormal Lab Results - Last 24 Hours (Table) 04/10/25 04/11/25 04/11/25 Range/Units 15:30 04:44 04:44 RBC 3.26 L (4.10-5.20) 10*6/uL Hgb 9.3 L (12.0-15.0) g/dL Hct 29.3 L (37.2-46.3) % MCHC 31.7 L (32.0-37.0) g/dL Plt Count 571 H (140-440) 10*3/uL MPV 8.7 L (9.5-12.2) fL Immature Gran # 0.15 H (0.00-0.04) 10*3/uL Monocytes # 1.40 H (0.20-1.00) 10*3/uL Sodium 135 L (137-145) mmol/L Calcium 8.1 L (8.4-10.2) mg/dL Fluid Appearance Grossly Bloody A (Clear) Assessment and Plan (1) Leukocytosis Current Visit: Yes Status: Acute Code(s): D72.829 - ELEVATED WHITE BLOOD CELL COUNT, UNSPECIFIED SNOMED Code(s): 252495941 (2) Allergy to sulfa drugs Current Visit: Yes Status: Acute Code(s): Z88.2 - ALLERGY STATUS TO S[place] SNOMED Code(s): 46192054 (3) Intra-abdominal collection Current Visit: Yes Status: Acute Code(s): R18.8 - OTHER ASCITES SNOMED Code(s): 349395948 Plan: 1patient will do have a history of appendicitis in this patient was status post laparoscopic appendectomy on 03/25/2025 with postop intra-abdominal hematoma in this patient who presented to the hospital mostly with palpitation and shortness of breath with the CT now showing more generalized fluid collection in the right lower quadrant area likely representing hematoma, infected hematoma abscess less likely but not excluded as the patient not running any fever he did not have any worsening abdominal pain or any tenderness 2-patient apparent scheduled for IR drainage of this fluid collection this afternoon which should be sent for culture 3-patient is remains to be afebrile the patient white count is trending down 4patient will be treated with Zosyn and monitor clinical course closely Dictation was produced using [email or web address] dictation software. please excuse any grammatical, word or spelling errors. Time with Patient: Less than 30
--- NOTE | 2025-04-11 15:57 | P.PN ---
Subjective Progress Note Date: 04/11/25 Principal diagnosis: Reason for follow-up is abnormal CT question of abscess Patient is a 85-year-old female with a past medical history negative for atrial fibrillation DVT hypertension hyperlipidemia osteoarthritis in this patient who recently underwent laparoscopic appendectomy on 03/25/2025 postoperatively patient did have a significant drop in hemoglobin noted to be in the hospital with palpitation, patient did have leukocytosis with a CT abdominal pelvis right lower quadrant fluid collection a question of abscess.s Patient is status post abscess drainage CT-guided on 04/10/2025 On today's evaluation that is 04/11/2025, Patient is afebrile this morning patie nt denies having any chest pain shortness of breath or cough, the patient is currently on 2 L nasal oxygen patient abdominal pain is controlled some nausea but no vomiting or diarrhea. Patient was normalized to 8.47 creatinine 0.86 abdominal fluid was grossly bloody cultures pending Objective - Vital Signs Vital signs: Vital Signs Temp 98.0 F 04/11/25 14:00 Pulse 76 04/11/25 14:00 Resp 14 04/11/25 14:00 BP 156/78 04/11/25 14:00 Pulse Ox 93 L 04/11/25 14:00 FiO2 Intake & Output 04/10/25 04/11/25 04/11/25 18:59 06:59 18:59 Intake Total 240 10 Output Total 580 250 Balance -340 -240 Weight 97 kg Intake: IV 10 Invasive Line 5 10 Oral 240 Output: Drainage 30 Right Abdomen 30 Urine 550 250 Other: Voiding Method External Catheter External Catheter External Catheter - Exam GENERAL DESCRIPTION: An elderly female lying in bed in no distress RESPIRATORY SYSTEM: Unlabored breathing , decreased breath sounds at bases HEART: S1 S2 regular rate and rhythm , ABDOMEN: Soft , mild right lower quadrant tenderness EXTREMITIES: No edema feet - Labs CBC & Chem 7: 04/11/25 04:44 04/11/25 04:44 Labs: Abnormal Lab Results - Last 24 Hours (Table) 04/10/25 04/11/25 04/11/25 Range/Units 15:30 04:44 04:44 RBC 3.26 L (4.10-5.20) 10*6/uL Hgb 9.3 L (12.0-15.0) g/dL Hct 29.3 L (37.2-46.3) % MCHC 31.7 L (32.0-37.0) g/dL Plt Count 571 H (140-440) 10*3/uL MPV 8.7 L (9.5-12.2) fL Immature Gran # 0.15 H (0.00-0.04) 10*3/uL Monocytes # 1.40 H (0.20-1.00) 10*3/uL Sodium 135 L (137-145) mmol/L Calcium 8.1 L (8.4-10.2) mg/dL Fluid Appearance Grossly Bloody A (Clear) Assessment and Plan (1) Leukocytosis Current Visit: Yes Status: Acute Code(s): D72.829 - ELEVATED WHITE BLOOD CELL COUNT, UNSPECIFIED SNOMED Code(s): 285623035 (2) Allergy to sulfa drugs Current Visit: Yes Status: Acute Code(s): Z88.2 - ALLERGY STATUS TO SULFONAMIDES SNOMED Code(s): 88532729 (3) Intra-abdominal collection Current Visit: Yes Status: Acute Code(s): R18.8 - OTHER ASCITES SNOMED Code(s): 236930065 Plan: 1patient will do have a history of appendicitis in this patient was status post laparoscopic appendectomy on 03/25/2025 with postop intra-abdominal hematoma in this patient who presented to the hospital mostly with palpitation and shortness of breath with the CT now showing more generalized fluid collection in the right lower quadrant area likely representing hematoma, infected hematoma abscess less likely but not excluded as the patient not running any fever he did not have any worsening abdominal pain or any tenderness 2-patient apparent scheduled for IR drainage of this fluid collection which is mostly bloody possibly indicating hematoma infected hematoma not entirely excluded 3-patient is remains to be afebrile the patient white count has normalized 4patient will be treated with Zosyn while waiting for the culture to finalize Dictation was produced using [employer] dictation software. please excuse any grammatical, word or spelling errors. Time with Patient: Less than 30
--- NOTE | 2025-04-11 20:04 | P.PN ---
Subjective Progress Note Date: 04/11/25 Subjective: Patient seen and examined at bedside. No acute events overnight. Pt notes she did feel some pressure in her chest at night. She denies feeling pain and palpitations but notes she could feel she was in a-fib. She also notes some abdominal bloating and notes she did eat a big dinner last night. Pt also notes SOB with exertion. She has not had a BM yet. She denies N/V, abdominal pain. Pertinent positives and negatives as discussed above, a complete review of systems was performed and all other systems are negative. Vitals: Signs Reviewed Physical Exam: General: nontoxic, no distress, appears at stated age Derm: warm, dry, intact Head: atraumatic, normocephalic, symmetric Eyes: EOMI, anicteric sclera Mouth: no lip lesion, mucus membranes moist Cardiovascular: irregularly irregular rhythm, no murmur, rubs, or gallops Lungs: CTA bilateral, no rhonchi, no rales, no accessory muscle use Abdominal: soft, non-tender to palpation, no appreciable organomegaly, drain in place with sanguineous output Extremities: no gross muscle atrophy, 2+ edema, no contractures Neuro: Alert, Oriented, CNII-XII grossly intact Psych: well appearing, appropriate affect Data Received Today: Pertinent Labs: WBC 8.47, Hgb 9.3, hct 29.3, pl 571, Na 135, k 4.1, BUN 15, Cr 0.86 Imaging: None Peritoneal culture - gram stain pending. no growth after 24 hours. Assessment and Plan: Patient is a 85 year old female with atrial fibrillation, DVT, hyperlipidemia, hypertension, osteoarthritis, hypothyroidism, cholecystectomy, hysterectomy, status post appendectomy who presents with palpitations and shortness of breath. #Paroxysmal Atrial fibrillation, with RVR, now rate controlled #Dyspnea #Recent Appendectomy, with possible complication of abdominal abscesses # Right-sided exudative pleural effusion, s/p thoracentesis 900 mL removed #Leukocytosis, likely due to above - Chest x-ray with findings of right subpulmonic effusion - Ultrasound chest right-sided pleural effusion, pocket size 9.3 cm - CT abdomen with 4 organized appearing fluid collections, possible abscesses versus resolving hematomas - Drain in place, continue to monitor output. - Continue metoprolol tartrate 25 mg p.o. twice daily - Hold Xarelto, will restart after speaking with IR. Can be restarted from surgery standpoint. - Continue Zosyn 3.375 every 8 hours - Continuous cardiac monitoring - Fluid cultures, cytology pending - Monitor CBC, CMP and magnesium - ID consulted - Pulmonology following #Constipation Begin Metamucil and lactulose 30 g p.o. 3 times daily #Elevated TSH #Hypothyroidism - Possible lab error versus euthyroid sick syndrome - Initial TSH 12.3, free T4 1.09. TSH 0.08 earlier this month - Resume Synthroid - Monitor symptoms #Nausea vomiting, resolved #Severe hypokalemia, resolved #Hypomagnesemia, resolved - Continue Zofran 4 mg every 8 hours as needed - Given 1 g magnesium sulfate in ER, and later 3 g of magnesium sulfate Chronic medical conditions: #Hyperlipidemia #Hypertension #Anxiety/depression #Insomnia Resume home medications once reconciled DVT ppx: Held Xeralto, will restart after confirming with IR. Code status: Full code Anticipated discharge place and time: Pending clinical course. Jeremy Grant DO PGY-1 IM Dictation was produced using [employer] dictation software. please excuse any grammatical, word or spelling errors. I saw and evaluated the patient during the moss and critical portions of this encounter, and discussed the case in detail with the resident author of this note, I agree with the Assessment and Plan, and my changes, if any, are highlighted in blue. Objective - Vital Signs Vital signs: Vital Signs Temp 98.0 F 04/11/25 14:00 Pulse 76 04/11/25 14:00 Resp 14 04/11/25 14:00 BP 156/78 04/11/25 14:00 Pulse Ox 93 L 04/11/25 14:00 FiO2 Intake & Output 04/11/25 04/11/25 04/12/25 06:59 18:59 06:59 Intake Total 10 Output Total 250 Balance -240 Intake: IV 10 Invasive Line 5 10 Output: Urine 250 Other: Voiding Method External Catheter External Catheter # Bowel Movements 2 - Labs CBC & Chem 7: 04/11/25 04:44 04/11/25 04:44 Labs: Abnormal Lab Results - Last 24 Hours (Table) 04/10/25 04/11/25 04/11/25 Range/Units 15:30 04:44 04:44 RBC 3.26 L (4.10-5.20) 10*6/uL Hgb 9.3 L (12.0-15.0) g/dL Hct 29.3 L (37.2-46.3) % MCHC 31.7 L (32.0-37.0) g/dL Plt Count 571 H (140-440) 10*3/uL MPV 8.7 L (9.5-12.2) fL Immature Gran # 0.15 H (0.00-0.04) 10*3/uL Monocytes # 1.40 H (0.20-1.00) 10*3/uL Sodium 135 L (137-145) mmol/L Calcium 8.1 L (8.4-10.2) mg/dL Fluid Appearance Grossly Bloody A (Clear) Microbiology - Last 24 Hours (Table) 04/10/25 15:30 Body Fluid Culture - Preliminary Peritoneal Fluid
[2025-04-12 08:33] LABS: Basophils # (A) 0.06 X 10*3/uL (0.00-0.10); Basophils % (A) 0.8 %; Eosinophils # (A) 0.16 X 10*3/uL (0.04-0.35); Eosinophils % (A) 2.1 %; HCT 28.4 % (37.2-46.3); HGB 8.8 g/dL (12.0-15.0); Immature Grans, Automated 1.60 %; Lymphocytes # (A) 1.26 X 10*3/uL (0.90-5.00); Lymphocytes % (A) 16.5 %; MCH 28.3 pg (27.0-32.0); MCHC 31.0 g/dL (32.0-37.0); MCV 91.3 FL (80.0-97.0); Monocytes # (A) 1.32 X 10*3/uL (0.20-1.00); Monocytes % (A) 17.3 %; NRBC Per 100 WBC 0 X 10*3/uL (0.00-0.01); Neutrophils # (A) 4.70 X 10*3/uL (1.80-7.70); Neutrophils % (A) 61.7 %; Platelet Count 573 X 10*3/uL (140-440); RBC 3.11 X 10*6/uL (4.10-5.20); RDW 15.6 % (11.5-14.5); WBC 7.62 X 10*3/uL (4.50-10.00)
[2025-04-12 08:35] LABS: Anion Gap 8.10 mmol/L (4.00-12.00); BUN/Creat Ratio 18.57 Ratio (12.00-20.00); Blood Urea Nitrogen 13.0 mg/dL (9.0-27.0); Calcium 7.8 mg/dL (8.7-10.3); Carbon Dioxide 24.9 mmol/L (21.6-31.8); Chloride 105 mmol/L (96-109); Glucose 110 mg/dL (70-110); Magnesium 1.7 mg/dL (1.5-2.4); Potassium 3.8 mmol/L (3.5-5.5); Sodium 138 mmol/L (135-145)
--- NOTE | 2025-04-12 11:53 | P.PN ---
Subjective Progress Note Date: 04/12/25 SURGICAL PROGRESS NOTE CHIEF COMPLAINT: Post appendicitis HISTORY OF PRESENT ILLNESS: Patient sitting up in bed. She denies any abdominal pain. Denies any nausea or vomiting. She had 2 loose bowel movements yesterday. She is requesting that the lactulose be discontinued. Abdominal drain with serosanguineous drainage. Patient reports she is awaiting insurance authorization for ECF. Afebrile. WBC 7.62 Hgb 8.8 PHYSICAL EXAM: VITAL SIGNS: Reviewed. GENERAL: Well-developed in no acute distress. HEENT: No sclera icterus. Extraocular movements grossly intact. Moist buccal mucosa. Head is atraumatic, normocephalic. ABDOMEN: Soft. Nondistended. Mild tenderness right lower quadrant. There is some ecchymosis noted lower abdomen. Incision sites clean dry and intact. Drain in place NEUROLOGIC: Alert and oriented. Cranial nerves II through XII grossly intact. ASSESSMENT: 1. Right-sided fluid collection and pelvic fluid collection after recent appendicitis with postoperative hemorrhage status post CT-guided drain placement PLAN: -Continue drain placed by IR service -Xarelto can be restarted from surgical standpoint. Recommend checking with IR service before resuming Xarelto -Continue antibiotics -Continue regular diet -Discontinue lactulose. Patient having multiple bowel movements. -Okay to discharge to ECF with drain from surgical standpoint Physician Casting Machine Control Board Operator note has been reviewed by physician. Signing provider agrees with the documented findings, assessment, and plan of care. I have personally seen and examined the patient, reviewed the PROGRESS MAN /PAs history, exam and MDM and agree with the assessment and plan as written. Based on total visit time, I have performed more than 50% of the visit. As above: Patient has some loose stools yesterday and today. Still feels quite weak. Appetite diminished. Cultures negative thus far on peritoneal bloody fluid. Continue antibiotics per infectious disease. Continue physical therapy. Objective - Vital Signs Vital signs: Vital Signs Temp 98.4 F 04/12/25 07:20 Pulse 82 04/12/25 07:20 Resp 16 04/12/25 08:49 BP 154/72 04/12/25 07:20 Pulse Ox 92 L 04/12/25 07:20 FiO2 Intake & Output 04/11/25 04/12/25 04/12/25 18:59 06:59 18:59 Other: Voiding Method External Catheter External Catheter External Catheter # Voids 1 # Bowel Movements 2 1 - Labs CBC & Chem 7: 04/12/25 04:18 04/12/25 04:18 Labs: Abnormal Lab Results - Last 24 Hours (Table) 04/12/25 04/12/25 Range/Units 04:18 04:18 RBC 3.11 L (4.10-5.20) X 10*6/uL Hgb 8.8 L (12.0-15.0) g/dL Hct 28.4 L (37.2-46.3) % MCHC 31.0 L (32.0-37.0) g/dL RDW 15.6 H (11.5-14.5) % Plt Count 573 H (140-440) X 10*3/uL MPV 8.8 L (9.5-12.2) FL Immature Gran # 0.12 H (0.00-0.04) X 10*3/uL Monocytes # 1.32 H (0.20-1.00) X 10*3/uL Calcium 7.8 L (8.7-10.3) mg/dL Microbiology - Last 24 Hours (Table) 04/10/25 15:30 Gram Stain - Preliminary Peritoneal Fluid Body Fluid Culture - Preliminary
--- NOTE | 2025-04-12 12:03 | CA ---
Transthoracic Echo Report Name: America Bellamy Age: 85 Gender: F : 1940 Exam Date: 04/12/2025 08:08 Exam Location: [facility] Ht (in): 61 Wt (lb): 213 Ordering Physician: Sarah Grant DO Attending/Referring Phys: Marketing Ambassador Heydi Castellano RDCS Procedure CPT: Indications: a-fib, Heart failure Cardiac Hx: Technical Quality: Good Contrast 1: Total Dose (mL): Contrast 2: Total Dose (mL): MEASUREMENTS (Male / Female) Normal Values 2D ECHO LV Diastolic Diameter PLAX 4.8 cm 4.2 - 5.9 / 3.9 - 5.3 cm LV Systolic Diameter PLAX 3.2 cm IVS Diastolic Thickness 1.0 cm 0.6 - 1.0 / 0.6 - 0.9 cm LVPW Diastolic Thickness 1.1 cm 0.6 - 1.0 / 0.6 - 0.9 cm LV Relative Wall Thickness 0.4 RV Internal Dim ED PLAX 3.9 cm LA Systolic Diameter LX 3.8 cm 3.0 - 4.0 / 2.7 - 3.8 cm LV Diastolic Volume MOD BP 91.1 cm??? 67 - 155 / 56 - 104 cm??? LV Systolic Volume MOD BP 29.5 cm??? 22 - 58 / 19 - 49 cm??? LV Ejection Fraction MOD BP 67.7 % >= 55 % LV Cardiac Index MOD BP 2296.8 cm???/min???m??? LV Diastolic Volume MOD 4C 75.3 cm??? LV Systolic Volume MOD 4C 24.1 cm??? LV Ejection Fraction MOD 4C 68.0 % LV Cardiac Index MOD 4C 1909.5 cm???/min???m??? LV Diastolic Length 4C 7.2 cm LV Systolic Length 4C 5.8 cm LV Diastolic Volume MOD 2C 106.0 cm??? LV Systolic Volume MOD 2C 32.7 cm??? LV Ejection Fraction MOD 2C 69.2 % LV Cardiac Index MOD 2C 2731.4 cm???/min???m??? LV Diastolic Length 2C 6.8 cm LV Systolic Length 2C 5.1 cm LA Volume 64.3 cm??? 18 - 58 / 22 - 52 cm??? LA Volume Index 30.7 cm???/m??? 16 - 28 cm???/m??? M-MODE Aortic Root Diameter MM 3.5 cm AV Cusp Separation MM 2.2 cm DOPPLER AV Peak Velocity 166.4 cm/s AV Peak Gradient 11.1 mmHg AV Mean Velocity 92.4 cm/s AV Mean Gradient 4.2 mmHg AV Velocity Time Integral 32.0 cm AI Peak Velocity 348.3 cm/s AI Peak Gradient 48.5 mmHg AI Pressure Half Time 649.0 ms MV Area PHT 4.4 cm??? Mitral E Point Velocity 109.7 cm/s Mitral A Point Velocity 128.3 cm/s Mitral E to A Ratio 0.9 MV Deceleration Time 172.5 ms TR Peak Velocity 328.0 cm/s TR Peak Gradient 43.0 mmHg Right Ventricular Systolic Press 47.2 mmHg FINDINGS Left Ventricle Left ventricular ejection fraction is estimated at 60-65 %. Left ventricular cavity size normal. Mildly increased posterior wall thickness. No obvious regional wall motion abnormalities. Right Ventricle Mild right ventricular dilatation. Moderate pulmonary hypertension. Right Atrium Normal right atrial size. No right atrial thrombus or mass seen. Left Atrium Mildly increased left atrial volume. No left atrial thrombus or mass present. Mitral Valve Structurally normal mitral valve. Mitral annular calcification. Trace mitral regurgitation. Aortic Valve Trileaflet aortic valve. Thickened aortic valve without stenosis. Mild aortic regurgitation. Tricuspid Valve Structurally normal tricuspid valve. Mild tricuspid regurgitation. Pulmonic Valve Structurally normal pulmonic valve. Mild pulmonic regurgitation. Pericardium No pericardial effusion. Aorta Normal size aortic root and proximal ascending aorta. CONCLUSIONS Normal LV function Moderate pulmonary hypertension Mild aortic regurgitation Previewed by: Dr. Jah Palma MD (Electronically Signed) Final Date: 12 April 2025 12:02
[2025-04-12] MEDS: RIVAROXABAN 15 MG TAB PO SCH (17:16)
--- NOTE | 2025-04-12 17:52 | P.PN ---
Subjective Progress Note Date: 04/12/25 Hospital Course: Patient is a 85 year old female with atrial fibrillation, DVT, hyperlipidemia, hypertension, osteoarthritis, hypothyroidism, cholecystectomy, hysterectomy status post appendectomy who presented to the ED with palpitations and shortness of breath. Symptoms occur with exertion and have been going on for over a week. She was discharged from this hospital 03/30/2025 where she had a laparoscopic appendectomy. She also endorsed mild abdominal pain, N/V and decreased appetite. ED labs showed WBC 16, hemoglobin 10.2, APTT 21.6, sodium 134, potassium 2.7, glucose 127, magnesium 1.3, total bilirubin 1.4, AST 45, troponin 0.022, proBNP 1300, TSH 12.3, free T4 1.09, CXR showed findings of right subpulmonic effusion and EKG showed A-fib with RVR, rate 143, QTc 329. Lateral ST depression. While inpatient, on 04/[address] guided abscess drainage by IR and thick bloody aspirate was obtained and then a right abdominal drain was placed. Pulmonology was consulted and a thoracentesis was completed with 900ml of turbid colored fluid was removed. Subjective: Patient seen and examined at bedside. No acute events overnight. Pt states she was able to have 2 BM yesterday and her abdominal bloating from yesterday has improved. She did note some nausea yesterday which resolved with Zofran. She denies CP, SOB, fever, chills and abdominal pain. Pertinent positives and negatives as discussed above, a complete review of systems was performed and all other systems are negative. Vitals: Signs Reviewed Physical Exam: General: nontoxic, no distress, appears at stated age Derm: warm, dry, intact Head: atraumatic, normocephalic, symmetric Eyes: EOMI, anicteric sclera Mouth: no lip lesion, mucus membranes moist Cardiovascular: S1 S2 reg, no murmur, rubs, or gallops Lungs: CTA bilateral, no rhonchi, no rales, no accessory muscle use Abdominal: soft, non-tender to palpation, no appreciable organomegaly. Drain on right abdomen with sanguineous output of 30ml this morning. No erythema or tenderness to skin surrounding drain. Extremities: 2+ pitting edema bilaterally, no gross muscle atrophy, no contractures Neuro: Alert, Oriented, CNII-XII grossly intact, gait normal Psych: well appearing, appropriate affect Data Received Today: Pertinent Labs: WBC 7.62, hgb 8.8, hct 28.4. BMP unremarkable. Imaging: Echo shows EF of 60-65%. Moderate pulmonary hypertension, mild aortic regurgitation. Peritoneal fluid culture with NGTD at 24 hours. Assessment and Plan: #Recent Appendectomy, with possible complication of abdominal abscesses versus infected hematoma #Paroxysmal Atrial fibrillation, with RVR, now rate controlled # Right-sided exudative pleural effusion, s/p thoracentesis 900 mL removed #Leukocytosis, likely due to above - Chest x-ray with findings of right subpulmonic effusion - Ultrasound chest right-sided pleural effusion, pocket size 9.3 cm - CT abdomen with 4 organized appearing fluid collections, possible abscesses versus resolving hematomas - Echo shows EF 60-65%, moderate pulmonary hypertension and mild aortic regurgitation. - Drain in place, continue to monitor output. - Continue metoprolol tartrate 25 mg p.o. twice daily - Restarted Xeralto 15 mg po. After discussing with IR - Continue Zosyn 3.375 every 8 hours. May change to oral antibiotics pending cultures at 48 hours. - Continuous cardiac monitoring - Discontinued LR fluids. - Fluid cultures, cytology pending - Monitor CBC, CMP and magnesium - ID following, recs appreciated - Pulmonology following, recs appreciated #Constipation Continue Metamucil 6g po BID AIMEE #Elevated TSH #Hypothyroidism - Possible lab error versus euthyroid sick syndrome - Initial TSH 12.3, free T4 1.09. TSH 0.08 earlier this month - Resume Synthroid - Monitor symptoms #Nausea vomiting, resolved #Severe hypokalemia, resolved #Hypomagnesemia, resolved - Continue Zofran 4 mg every 8 hours as needed Chronic medical conditions: #Hyperlipidemia #Hypertension #Anxiety/depression #Insomnia Resume home medications DVT ppx: Xeralto 15 mg po Code status: Full code Anticipated discharge place: Anticipate [facility] Anticipated discharge time: 24-48 hours Jeremy Grant DO PGY-1 IM Dictation was produced using [employer] dictation software. please excuse any grammatical, word or spelling errors. I have seen and evaluated the patient today. Discussed with the resident and agree with the residents finding and plan as documented in the resident's note. Changes highlighted in blue font. Objective - Vital Signs Vital signs: Vital Signs Temp 98.2 F 04/12/25 01:59 Pulse 80 04/12/25 01:59 Resp 16 04/12/25 01:59 BP 143/72 04/12/25 01:59 Pulse Ox 92 L 04/12/25 01:59 FiO2 Intake & Output 04/11/25 04/11/25 04/12/25 06:59 18:59 06:59 Intake Total 10 Output Total 250 Balance -240 Intake: IV 10 Invasive Line 5 10 Output: Urine 250 Other: Voiding Method External Catheter External Catheter External Catheter # Voids 1 # Bowel Movements 2 1 - Labs CBC & Chem 7: 04/12/25 04:18 04/12/25 04:18 Labs: Microbiology - Last 24 Hours (Table) 04/10/25 15:30 Gram Stain - Preliminary Peritoneal Fluid Body Fluid Culture - Preliminary
[2025-04-13 06:45] LABS: Basophils # (A) 0.07 10*3/uL (0.00-0.10); Basophils % (A) 1.0 %; Eosinophils # (A) 0.44 10*3/uL (0.04-0.35); Eosinophils % (A) 6.3 %; HCT 28.5 % (37.2-46.3); HGB 8.8 g/dL (12.0-15.0); Lymphocytes # (A) 1.52 10*3/uL (0.90-5.00); Lymphocytes % (A) 21.9 %; MCH 27.8 pg (27.0-32.0); MCHC 30.9 g/dL (32.0-37.0); MCV 89.9 fL (80.0-97.0); Monocytes # (A) 1.12 10*3/uL (0.20-1.00); Monocytes % (A) 16.2 %; Neutrophils # (A) 3.62 10*3/uL (1.80-7.70); Neutrophils % (A) 52.3 %; Platelet Count 533 10*3/uL (140-440); RBC 3.17 10*6/uL (4.10-5.20); RDW 15.4 % (11.5-14.5); WBC 6.93 10*3/uL (4.50-10.00)
[2025-04-13 07:14] LABS: African American GFR (CKD) 89 (>60 ml/min/1.73 sqM); Anion Gap 3 mmol/L; Blood Urea Nitrogen 11 mg/dL (7-17); Calcium 8.1 mg/dL (8.4-10.2); Carbon Dioxide 28 mmol/L (22-30); Chloride 106 mmol/L (98-107); Glucose 87 mg/dL (74-99); Non-African American GFR(CKD) 77 (>60 ml/min/1.73 sqM); Potassium 3.7 mmol/L (3.5-5.1); Sodium 137 mmol/L (137-145)
[2025-04-13 07:57] VITALS: BP 151/71; PULSE 71; RESP 17; TEMP 98.1
[2025-04-13] MEDS ORDERED: SENNOSIDES 8.6 MG TAB PO PRN (10:36)
--- NOTE | 2025-04-13 10:56 | P.PN ---
Subjective Progress Note Date: 04/13/25 SURGICAL PROGRESS NOTE CHIEF COMPLAINT: Post appendicitis HISTORY OF PRESENT ILLNESS: Patient with no new complaints. Patient scheduled to be discharged to [facility] today. She has the drain in place with 35 mL serosanguineous drainage. Patient reports the diarrhea is better. She had 2 loose stools yesterday. Lactulose was discontinued. She is requesting to be on a stool softener instead of the laxatives. Afebrile. WBC 6.39 Hgb 8.8 PHYSICAL EXAM: VITAL SIGNS: Reviewed. GENERAL: Well-developed in no acute distress. HEENT: No sclera icterus. Extraocular movements grossly intact. Moist buccal mucosa. Head is atraumatic, normocephalic. ABDOMEN: Soft. Nondistended. Nontender. Incision sites clean dry and intact. Drain in place NEUROLOGIC: Alert and oriented. Cranial nerves II through XII grossly intact. ASSESSMENT: 1. Right-sided fluid collection and pelvic fluid collection after recent appendicitis with postoperative hemorrhage status post CT-guided drain placement PLAN: -Patient can be discharged from surgical standpoint with drain -Continue p.o. antibiotics -Senna ordered as needed per patient request Physician Electrical Hardware Engineer note has been reviewed by physician. Signing provider agrees with the documented findings, assessment, and plan of care. Objective - Vital Signs Vital signs: Vital Signs Temp 98.1 F 04/13/25 07:24 Pulse 71 04/13/25 07:24 Resp 17 04/13/25 07:24 BP 151/71 04/13/25 07:24 Pulse Ox 93 L 04/13/25 07:24 FiO2 Intake & Output 04/12/25 04/13/25 04/13/25 18:59 06:59 18:59 Output Total 35 260 Balance -35 -260 Output: Drainage 35 Right Abdomen 35 Urine 260 Other: Voiding Method External Catheter # Voids 2 # Bowel Movements 1 - Labs CBC & Chem 7: 04/13/25 06:24 04/13/25 06:24 Labs: Abnormal Lab Results - Last 24 Hours (Table) 04/13/25 04/13/25 Range/Units 06:24 06:24 RBC 3.17 L (4.10-5.20) 10*6/uL Hgb 8.8 L (12.0-15.0) g/dL Hct 28.5 L (37.2-46.3) % MCHC 30.9 L (32.0-37.0) g/dL RDW 15.4 H (11.5-14.5) % Plt Count 533 H (140-440) 10*3/uL MPV 8.3 L (9.5-12.2) fL Immature Gran # 0.16 H (0.00-0.04) 10*3/uL Monocytes # 1.12 H (0.20-1.00) 10*3/uL Eosinophils # 0.44 H (0.04-0.35) 10*3/uL Calcium 8.1 L (8.4-10.2) mg/dL Microbiology - Last 24 Hours (Table) 04/10/25 15:30 Anaerobic Culture - Preliminary Abdomen Anaerobic Gm Positive Martine 04/10/25 15:30 Gram Stain - Preliminary Peritoneal Fluid Body Fluid Culture - Preliminary
--- NOTE | 2025-04-13 10:56 | P.DS ---
Providers Date of admission: 04/03/25 17:00 Expected date of discharge: 04/13/25 Attending physician: Zach Kaplan Consults: 04/04/25 07:41 Consult Physician Routine Consulting Provider: Tani Almazan Consult Reason/Comments: r. pleural effusion Do you want consulting provider notified?: Yes 04/07/25 11:05 Consult Physician Routine Consulting Provider: Kaden Weeks Consult Reason/Comments: possible abdominal abscess Do you want consulting provider notified?: Yes 04/07/25 11:50 Consult Physician Routine Consulting Provider: Filiberto Solitario Consult Reason/Comments: S/p appendectomy possible abdominal abscess v tony ricardo Do you want consulting provider notified?: Yes Primary care physician: Chris Bella Hospital Course: Discharge Diagnosis: Recent Appendectomy, complicated by infected hematoma versus abscess Paroxysmal Atrial fibrillation, with RVR, now rate controlled Right-sided exudative pleural effusion, s/p thoracentesis 900 mL removed Leukocytosis, likely due to above Constipation Hypothyroidism, Elevated TSH Nausea vomiting, resolved Severe hypokalemia, resolved Hypomagnesemia, resolved Chronic medical conditions: Hyperlipidemia Hypertension Anxiety/depression Insomnia Hospital Course: Patient is a 85 year old female with atrial fibrillation, DVT, hyperlipidemia, hypertension, osteoarthritis, hypothyroidism, cholecystectomy, hysterectomy status post appendectomy who presented to the ED with palpitations and shortness of breath. Symptoms occur with exertion and have been going on for over a week. She was discharged from this hospital 03/30/2025 where she had a laparoscopic appendectomy. She also endorsed mild abdominal pain, N/V and decreased appetite. ED labs showed WBC 16, hemoglobin 10.2, APTT 21.6, sodium 134, potassium 2.7, glucose 127, magnesium 1.3, total bilirubin 1.4, AST 45, troponin 0.022, proBNP 1300, TSH 12.3, free T4 1.09, CXR showed findings of right subpulmonic effusion and EKG showed A-fib with RVR, rate 143, QTc 329. Lateral ST depression. Pt was started on IV antibiotics. Cardiology was consulted and A-fib is currently rate controlled with metoprolol tartrate 25 mg BID. Also, pulmonology was consulted and a thoracentesis was completed with 900ml of turbid colored fluid was removed. Cytology negative for malignancy. Additionally, while inpatient, pt underwent CT guided abscess drainage by IR and thick bloody aspirate was obtained and a right abdominal drain was placed. Fluid cultures were sent and peritoneal culture shows no growth at 48 hours and anaerobe culture shows rare anaerobic gram positive bacilli. Right abdomen drain continues to drain sanguineous output. During this admission, patient was seen by general surgery, IR as well as ID. Pt's zosyn was changed to Augmentin 875-125mg x16gmmi for 7 days. Additionally, pt will continue Xarelto 15 mg with supper. Pt to follow-up with PCP (Dr. Bella) in 1-2 days, surgery (Dr. Hope) in 1 week, cardiology (Dr. Pena) in 1 week. Patient seen and examined at bedside. Patient is stable with right abdomen drain. Vital signs reviewed and stable. Physical examination: Vital signs reviewed General: non toxic, no distress, appears at stated age, normal weight Derm: no unusual rashes/lesions, warm Head: atraumatic, normocephalic, symmetric Eyes: EOMI, anicteric sclera, pupils equal round reactive to light ENT: Nose and ears atraumatic Mouth: no lip lesion, mucus membranes moist Cardiovascular: S1S2 reg, no murmur, 2+ pitting edema bilaterally Lungs: CTA bilateral, no rhonchi, no rales, no accessory muscle use Abdominal: soft, nontender to palpation, no guarding. Drain on right abdomen with no erythema or tenderness and draining sangineous output (35ml) Ext: no gross muscle atrophy Neuro: CN II-XI grossly intact, no gross focal neuro deficits Psych: Alert, oriented to person, place, and time A total of greater than 30 minutes of time were spent preparing this complex discharge summary. Patient was discharged on 04/13/2025 at 959. Jeremy Grant DO PGY-1 IM Dictation was produced using [employer] dictation software. please excuse any grammatical, word or spelling errors. I have seen and evaluated the patient today. Discussed with the resident and agree with the residents finding and plan as documented in the resident's note. Changes highlighted in blue font. Patient Condition at Discharge: Stable Plan - Discharge Summary Discharge Rx Participant: No New Discharge Prescriptions: New Amoxic-Pot Clav 875-125Mg [Augmentin 875-125] 1 tab PO Q12HR 7 Days #14 tab Baclofen [Lioresal] 5 mg PO TID PRN tab PRN Reason: Muscle Spasm Nystatin 100,000 Unit/gm Powd [Mycostatin Powder] 1 applic TOPICAL BID each Psyllium Husk 100% [Metamucil Packet] 6 gm PO BID packet Rivaroxaban [Xarelto] 15 mg PO W/SUPPER tab Continue Metoprolol Tartrate [Lopressor] 25 mg PO BID DULoxetine HCL [Cymbalta] 60 mg PO DAILY Pravastatin Sodium [Pravachol] 20 mg PO HS Losartan Potassium [Cozaar] 100 mg PO DAILY Levothyroxine Sodium [Synthroid] 112 mcg PO DAILY fluocinolone acetonide oiL [Dermotic] 2 - 3 drops BOTH EARS BID PRN PRN Reason: flares Ramelteon [Rozerem] 8 mg PO HS PRN PRN Reason: sleep Ketoconazole 2% Shampoo [Nizoral] 1 applic TOPICAL Q3D PRN PRN Reason: flares Clobetasol Propionate [Clobex 0.05% Soln] 1 applic TOPICAL HS PRN PRN Reason: flares busPIRone HCL 10 mg PO Q12H Pantoprazole [Protonix] 40 mg PO DAILY DULoxetine HCL [Cymbalta] 30 mg PO DAILY Discontinued Levofloxacin [Levaquin] 500 mg PO DAILY 10 Days #10 tab Acetaminophen Tab [Tylenol Tab] 650 mg PO Q4H PRN #30 tablet PRN Reason: Pain Rivaroxaban [Xarelto] 20 mg PO DAILY Furosemide [Lasix] 20 mg PO DAILY #90 tab metroNIDAZOLE [Flagyl] 500 mg PO TID 10 Days #30 tab Discharge Medication List Metoprolol Tartrate [Lopressor] 25 mg PO BID 09/08/18 [History] DULoxetine HCL [Cymbalta] 60 mg PO DAILY 11/19/20 [History] Pravastatin Sodium [Pravachol] 20 mg PO HS 01/10/21 [History] Losartan Potassium [Cozaar] 100 mg PO DAILY 06/25/21 [History] busPIRone HCL 10 mg PO Q12H 05/30/22 [History] DULoxetine HCL [Cymbalta] 30 mg PO DAILY 08/08/22 [History] Levothyroxine Sodium [Synthroid] 112 mcg PO DAILY 08/08/22 [History] Pantoprazole [Protonix] 40 mg PO DAILY 08/08/22 [History] Clobetasol Propionate [Clobex 0.05% Soln] 1 applic TOPICAL HS PRN 03/24/25 [History] Ketoconazole 2% Shampoo [Nizoral] 1 applic TOPICAL Q3D PRN 03/24/25 [History] Ramelteon [Rozerem] 8 mg PO HS PRN 03/24/25 [History] fluocinolone acetonide oiL [Dermotic] 2 - 3 drops BOTH EARS BID PRN 03/24/25 [History] Amoxic-Pot Clav 875-125Mg [Augmentin 875-125] 1 tab PO Q12HR 7 Days #14 tab 04/13/25 [Rx] Baclofen [Lioresal] 5 mg PO TID PRN tab 04/13/25 [Rx] Nystatin 100,000 Unit/gm Powd [Mycostatin Powder] 1 applic TOPICAL BID each 04/13/25 [Rx] Psyllium Husk 100% [Metamucil Packet] 6 gm PO BID packet 04/13/25 [Rx] Rivaroxaban [Xarelto] 15 mg PO W/SUPPER tab 04/13/25 [Rx] Follow up Appointment(s)/Referral(s): [facility], [NON-STAFF] - Esteban Pena MD [STAFF PHYSICIAN] - 1 Week Chris Bella DO [Primary Care Provider] - 1-2 days Andres Hope MD [STAFF PHYSICIAN] - 1 Week Discharge Disposition: TRANSFER TO SNF/ECF
--- NOTE | 2025-04-16 14:53 | P.PN ---
Subjective Progress Note Date: 04/12/25 Principal diagnosis: Reason for follow-up is abnormal CT question of abscess Patient is a 85-year-old female with a past medical history negative for atrial fibrillation DVT hypertension hyperlipidemia osteoarthritis in this patient who recently underwent laparoscopic appendectomy on 03/25/2025 postoperatively patient did have a significant drop in hemoglobin noted to be in the hospital with palpitation, patient did have leukocytosis with a CT abdominal pelvis right lower quadrant fluid collection a question of abscess.s Patient is status post abscess drainage CT-guided on 04/10/2025 On today's evaluation that is 04/12/2025, Patient is afebrile patient is current ly on room air and denies having any shortness of breath, the patient denies any chest pain or cough, the patient denies any nausea vomiting right side abdominal pain have decreased in intensity. Patient white count is down to 7.16, creatinine 0.7 Objective - Vital Signs Vital signs: Vital Signs Temp 98.4 F 04/12/25 07:20 Pulse 82 04/12/25 07:20 Resp 16 04/12/25 08:49 BP 154/72 04/12/25 07:20 Pulse Ox 92 L 04/12/25 07:20 FiO2 Intake & Output 04/11/25 04/12/25 04/12/25 18:59 06:59 18:59 Other: Voiding Method External Catheter External Catheter External Catheter # Voids 1 # Bowel Movements 2 1 - Exam GENERAL DESCRIPTION: An elderly female lying in bed in no distress RESPIRATORY SYSTEM: Unlabored breathing , decreased breath sounds at bases HEART: S1 S2 regular rate and rhythm , ABDOMEN: Soft , mild right lower quadrant tenderness EXTREMITIES: No edema feet - Labs CBC & Chem 7: 04/13/25 06:24 04/13/25 06:24 Labs: Abnormal Lab Results - Last 24 Hours (Table) 04/12/25 04/12/25 Range/Units 04:18 04:18 RBC 3.11 L (4.10-5.20) X 10*6/uL Hgb 8.8 L (12.0-15.0) g/dL Hct 28.4 L (37.2-46.3) % MCHC 31.0 L (32.0-37.0) g/dL RDW 15.6 H (11.5-14.5) % Plt Count 573 H (140-440) X 10*3/uL MPV 8.8 L (9.5-12.2) FL Immature Gran # 0.12 H (0.00-0.04) X 10*3/uL Monocytes # 1.32 H (0.20-1.00) X 10*3/uL Calcium 7.8 L (8.7-10.3) mg/dL Microbiology - Last 24 Hours (Table) 04/10/25 15:30 Gram Stain - Preliminary Peritoneal Fluid Body Fluid Culture - Preliminary Assessment and Plan (1) Leukocytosis Status: Acute Code(s): D72.829 - ELEVATED WHITE BLOOD CELL COUNT, UNSPECIFIED SNOMED Code(s): 823320645 (2) Allergy to sulfa drugs Status: Acute Code(s): Z88.2 - ALLERGY STATUS TO SULFONAMIDES SNOMED Code(s): 60681428 (3) Intra-abdominal collection Status: Acute Code(s): R18.8 - OTHER ASCITES SNOMED Code(s): 250326092 Plan: 1patient will do have a history of appendicitis in this patient was status post laparoscopic appendectomy on 03/25/2025 with postop intra-abdominal hematoma in this patient who presented to the hospital mostly with palpitation and shortness of breath with the CT now showing more generalized fluid collection in the right lower quadrant area likely representing hematoma, infected hematoma abscess less likely but not excluded as the patient not running any fever he did not have any worsening abdominal pain or any tenderness 2-patient is status post IR drainage of this fluid collection which is mostly bl oody possibly indicating hematoma infected hematoma not entirely excluded 3-patient is remains to be afebrile the patient white count has normalized 4patient currently being treated with Zosyn while waiting for the culture to finalize to determine discharge antibiotics Dictation was produced using [employer] dictation software. please excuse any grammatical, word or spelling errors. Time with Patient: Less than 30
--- NOTE | 2025-04-16 14:53 | P.PN ---
Subjective Progress Note Date: 04/13/25 Principal diagnosis: Reason for follow-up is abnormal CT question of abscess Patient is a 85-year-old female with a past medical history negative for atrial fibrillation DVT hypertension hyperlipidemia osteoarthritis in this patient who recently underwent laparoscopic appendectomy on 03/25/2025 postoperatively patient did have a significant drop in hemoglobin noted to be in the hospital with palpitation, patient did have leukocytosis with a CT abdominal pelvis right lower quadrant fluid collection a question of abscess.s Patient is status post abscess drainage CT-guided on 04/10/2025 On today's evaluation that is 04/13/2025,the patient remains to be afebrile, pat ient is on room air not requiring supplemental oxygen and denies any shortness of breath no chest pain or cough.Patient denies having any nausea or vomiting, no abdominal pain and no diarrhea has been reported. The patient white count 6.93 creatinine 0.72 abdominal culture with anaerobic gram-positive bacilli Objective - Vital Signs Vital signs: Vital Signs Temp 98.1 F 04/13/25 07:24 Pulse 71 04/13/25 07:24 Resp 17 04/13/25 07:24 BP 151/71 04/13/25 07:24 Pulse Ox 93 L 04/13/25 07:24 FiO2 Intake & Output 04/12/25 04/13/25 04/13/25 18:59 06:59 18:59 Intake Total 360 Output Total 35 260 Balance -35 -260 360 Intake: Oral 360 Output: Drainage 35 Right Abdomen 35 Urine 260 Other: Voiding Method External Catheter # Voids 2 # Bowel Movements 1 - Exam GENERAL DESCRIPTION: An elderly female lying in bed in no distress RESPIRATORY SYSTEM: Unlabored breathing , decreased breath sounds at bases HEART: S1 S2 regular rate and rhythm , ABDOMEN: Soft , mild right lower quadrant tenderness EXTREMITIES: No edema feet - Labs CBC & Chem 7: 04/13/25 06:24 04/13/25 06:24 Labs: Abnormal Lab Results - Last 24 Hours (Table) 04/13/25 04/13/25 Range/Units 06:24 06:24 RBC 3.17 L (4.10-5.20) 10*6/uL Hgb 8.8 L (12.0-15.0) g/dL Hct 28.5 L (37.2-46.3) % MCHC 30.9 L (32.0-37.0) g/dL RDW 15.4 H (11.5-14.5) % Plt Count 533 H (140-440) 10*3/uL MPV 8.3 L (9.5-12.2) fL Immature Gran # 0.16 H (0.00-0.04) 10*3/uL Monocytes # 1.12 H (0.20-1.00) 10*3/uL Eosinophils # 0.44 H (0.04-0.35) 10*3/uL Calcium 8.1 L (8.4-10.2) mg/dL Microbiology - Last 24 Hours (Table) 04/10/25 15:30 Anaerobic Culture - Preliminary Abdomen Anaerobic Gm Positive Bacill 04/10/25 15:30 Gram Stain - Preliminary Peritoneal Fluid Body Fluid Culture - Preliminary Assessment and Plan (1) Leukocytosis Status: Acute Code(s): D72.829 - ELEVATED WHITE BLOOD CELL COUNT, UNSPECIFIED SNOMED Code(s): 163719985 (2) Allergy to sulfa drugs Status: Acute Code(s): Z88.2 - ALLERGY STATUS TO SULFONAMIDES SNOMED Code(s): 62727795 (3) Intra-abdominal collection Status: Acute Code(s): R18.8 - OTHER ASCITES SNOMED Code(s): 548050350 Plan: 1patient will do have a history of appendicitis in this patient was status post laparoscopic appendectomy on 03/25/2025 with postop intra-abdominal hematoma in this patient who presented to the hospital mostly with palpitation and shortness of breath with the CT now showing more generalized fluid collection in the right lower quadrant area likely representing hematoma, infected hematoma abscess less likely but not excluded as the patient not running any fever he did not have any worsening abdominal pain or any tenderness 2-patient is status post IR drainage of this fluid collection which is mostly bloody possibly indicating hematoma infected hematoma not entirely excluded 3-patient is remains to be afebrile the patient white count has normalized 4patient abdominal culture grew anaerobic gram-positive bacilli, the patient is being discharged by admitting team on 7-day course of oral Augmentin and close outpatient follow-up Dictation was produced using [employer] dictation software. please excuse any grammatical, word or spelling errors. Time with Patient: Less than 30
== END 2025-04-13 12:11 | DRG 863 ==
LOC: EC 14:48 → 3SCARD 17:00 → 6NMEDSUR 04-10 23:33
PROVIDERS: ADMIT Student in an Organized Health Care Education/Training Program; ATTEND Student in an Organized Health Care Education/Training Program
PROC: 0W993ZX Drainage of Right Pleural Cavity, Percutaneous Approach, Diagnostic (ICD-10-PCS; 2025-04-05)
PROC: 0D9 Gastrointestinal System, Drainage (ICD-10-PCS; principal; 2025-04-10)
PROC: 05HC33Z Insertion of Infusion Device into Left Basilic Vein, Percutaneous Approach (ICD-10-PCS; 2025-04-11)
DX: T81.43XA Infection following a procedure, organ and space surgical site, initial encounter (principal); J90 Pleural effusion, not elsewhere classified; K63.0 Abscess of intestine; I27.20 Pulmonary hypertension, unspecified; R18.8 Other ascites; E03.9 Hypothyroidism, unspecified; E66.9 Obesity, unspecified; F32.A Depression, unspecified; I10 Essential (primary) hypertension; I08.0 Rheumatic disorders of both mitral and aortic valves; Z68.41 Body mass index [BMI] 40.0-44.9, adult; I48.0 Paroxysmal atrial fibrillation; E78.5 Hyperlipidemia, unspecified; E83.42 Hypomagnesemia; E87.6 Hypokalemia; I83.90 Asymptomatic varicose veins of unspecified lower extremity; E89.2 Postprocedural hypoparathyroidism; F41.9 Anxiety disorder, unspecified; G47.00 Insomnia, unspecified; K59.00 Constipation, unspecified; M19.90 Unspecified osteoarthritis, unspecified site; Z79.01 Long term (current) use of anticoagulants; Z79.890 Hormone replacement therapy; Z79.899 Other long term (current) drug therapy; Z85.828 Personal history of other malignant neoplasm of skin; Z86.718 Personal history of other venous thrombosis and embolism; Z87.11 Personal history of peptic ulcer disease; Z88.2 Allergy status to sulfonamides; Z90.49 Acquired absence of other specified parts of digestive tract; Z96.641 Presence of right artificial hip joint; Z96.653 Presence of artificial knee joint, bilateral; Z87.440 Personal history of urinary (tract) infections
CPT/HCPCS: 36410; 36415; 71045; 71046; 71260; 74177; 75989; 76604; 76937; 80048; 80053; 81001; 82945; 83615; 83735; 83880; 84157; 84439; 84443; 84481; 84484; 85025; 85610; 85730; 87070; 87075; 87086; 87205; 88108; 88173; 88305; 89050; 93005; 93306; 96365; 96366; 96368; 99291

== ENCOUNTER 2025-04-29 04:55 | Emergency (ER) | payer MEDICARE ==
[2025-04-29 05:01] VITALS: TEMP 97.9
[2025-04-29] MEDS ORDERED: RX INFO: IV CONTRAST WAS GIVEN 1 EACH MISC MISCELLANE PRN (06:08)
[2025-04-29 06:25] LABS: Basophils # (A) 0.04 10*3/uL (0.00-0.10); Basophils % (A) 0.6 %; Eosinophils # (A) 0.27 10*3/uL (0.04-0.35); Eosinophils % (A) 4.0 %; HCT 27.9 % (37.2-46.3); HGB 8.8 g/dL (12.0-15.0); Lymphocytes # (A) 1.44 10*3/uL (0.90-5.00); Lymphocytes % (A) 21.2 %; MCH 27.7 pg (27.0-32.0); MCHC 31.5 g/dL (32.0-37.0); MCV 87.7 fL (80.0-97.0); Monocytes # (A) 1.13 10*3/uL (0.20-1.00); Monocytes % (A) 16.7 %; Neutrophils # (A) 3.85 10*3/uL (1.80-7.70); Neutrophils % (A) 56.8 %; Platelet Count 356 10*3/uL (140-440); RBC 3.18 10*6/uL (4.10-5.20); RDW 15.6 % (11.5-14.5); WBC 6.78 10*3/uL (4.50-10.00)
[2025-04-29 06:52] LABS: ALT 9 U/L (4-34); African American GFR (CKD) 81 (>60 ml/min/1.73 sqM); Anion Gap 10 mmol/L; Blood Urea Nitrogen 17 mg/dL (7-17); Calcium 8.6 mg/dL (8.4-10.2); Carbon Dioxide 24 mmol/L (22-30); Chloride 102 mmol/L (98-107); Glucose 92 mg/dL (74-99); Lipase 104 U/L (23-300); Non-African American GFR(CKD) 70 (>60 ml/min/1.73 sqM); Sodium 136 mmol/L (137-145)
--- NOTE | 2025-04-29 06:53 | ED ---
Abdominal Pain HPI - General Source: EMS Mode of arrival: EMS Limitations: no limitations <Virginia Causey - Last Filed: 04/29/25 07:11> - General Source: patient, RN notes reviewed, old records reviewed <Alexander Reynolds - Last Filed: 04/29/25 09:19> - General Chief Complaint: Abdominal Pain Stated Complaint: Abdominal Pain Time Seen by Provider: 04/29/25 05:05 - History of Present Illness Initial Comments: 85-year-old female with past medical history of A-fib, hypertension who presents emergency department with generalized abdominal pain. Patient states that she was at her extended care facility when the aide had to roll her in bed to change her briefs. When the patient rolled [id number] she had abdominal discomfort. Patient did have an appendectomy in March where she did have post surgical hemorrhage and required a drain. Drain is still in place. She states that the pain is described cramp. She denies nausea or vomiting. No diarrhea, constipation, black or bloody stools. No vaginal bleeding or discharge. Does admit to urinary incontinence since the procedure was performed. Patient admits that she saw her surgeon in the office for a postop follow-up. The surgeon was concerned about the coloration of the drainage in the drain and therefore ordered a CT which has yet to be performed. States that the last time she had her bag drained was the day before yesterday. Drainage has been brown in coloration. She was not given anything for the pain. States it has slightly subsided at this time. (Virginia Causey) - Related Data Home Medications Medication Instructions Recorded Confirmed Metoprolol Tartrate [Lopressor] 25 mg PO BID 09/08/18 04/04/25 DULoxetine HCL [Cymbalta] 60 mg PO DAILY 11/19/20 04/04/25 Pravastatin Sodium [Pravachol] 20 mg PO HS 01/10/21 04/04/25 Losartan Potassium [Cozaar] 100 mg PO DAILY 06/25/21 04/04/25 busPIRone HCL 10 mg PO Q12H 05/30/22 04/04/25 DULoxetine HCL [Cymbalta] 30 mg PO DAILY 08/08/22 04/04/25 Levothyroxine Sodium [Synthroid] 112 mcg PO DAILY 08/08/22 04/04/25 Pantoprazole [Protonix] 40 mg PO DAILY 08/08/22 04/04/25 Clobetasol Propionate [Clobex 1 applic TOPICAL HS PRN 03/24/25 04/04/25 0.05% Soln] Ketoconazole 2% Shampoo [Nizoral] 1 applic TOPICAL Q3D PRN 03/24/25 04/04/25 Ramelteon [Rozerem] 8 mg PO HS PRN 03/24/25 04/04/25 fluocinolone acetonide oiL 2 - 3 drops BOTH EARS BID PRN 03/24/25 04/04/25 [Dermotic] Previous Rx's Medication Instructions Recorded Amoxic-Pot Clav 875-125Mg 1 tab PO Q12HR 7 Days #14 tab 04/13/25 [Augmentin 875-125] Baclofen [Lioresal] 5 mg PO TID PRN tab 04/13/25 Nystatin 100,000 Unit/gm Powd 1 applic TOPICAL BID each 04/13/25 [Mycostatin Powder] Psyllium Husk 100% [Metamucil 6 gm PO BID packet 04/13/25 Packet] Rivaroxaban [Xarelto] 15 mg PO W/SUPPER tab 04/13/25 Levofloxacin [Levaquin] 750 mg PO DAILY 7 Days #7 tab 04/29/25 metroNIDAZOLE [Flagyl] 500 mg PO TID 7 Days #21 tab 04/29/25 Allergies Allergy/AdvReac Type Severity Reaction Status Date / Time Sulfa (Sulfonamide Allergy Rash/Hives Verified 04/29/25 05:00 Antibiotics) Review of Systems ROS Other: All systems not noted in ROS Statement are negative. <Virginia Causey - Last Filed: 04/29/25 07:11> ROS Other: All systems not noted in ROS Statement are negative. <Alexander Reynolds - Last Filed: 04/29/25 09:19> ROS Statement: Those systems with pertinent positive or pertinent negative responses have been documented in the HPI. Past Medical History Past Medical History: Atrial Fibrillation, Cancer, Deep Vein Thrombosis (DVT), Hyperlipidemia, Hypertension, Osteoarthritis (OA), Thyroid Disorder Additional Past Medical History / Comment(s): HX DVT 2008., chronic UTI's, varicose veins, constipation, hx "ischemic colitis" 2010, skin cancer, SPINAL STENOSIS, NT left LEG/FOOT- USES WALKER., collapsed tendon left foot, duodenal ulcer, episode of a-fib after knee replacement History of Any Multi-Drug Resistant Organisms: None Reported Past Surgical History: Appendectomy, Bladder Surgery, Cholecystectomy, Hysterectomy, Joint Replacement, Orthopedic Surgery Additional Past Surgical History / Comment(s): Parathyroidectomy, Bladder suspension, smita and screws right femur. Cortisone injection, pain clinic proc edures. rt hip replacement, rt knee replacement 06/2021, lakisha cataracts., left knee replaced 2021, colonoscopy recently Past Anesthesia/Blood Transfusion Reactions: No Reported Reaction Past Psychological History: Depression Smoking Status: Never smoker Past Alcohol Use History: None Reported Past Drug Use History: None Reported - Past Family History Father Family Medical History: Cancer Additional Family Medical History / Comment(s): LUNG CANCER Mother Family Medical History: Cancer Additional Family Medical History / Comment(s): Breast Cancer. <Virginia Causey - Last Filed: 04/29/25 07:11> General Exam Limitations: no limitations General appearance: alert, in no apparent distress Head exam: Present: atraumatic, normocephalic, normal inspection Eye exam: Present: normal appearance, PERRL, EOMI. Absent: scleral icterus, conjunctival injection, periorbital swelling ENT exam: Present: normal exam, mucous membranes moist Neck exam: Present: normal inspection. Absent: tenderness, meningismus, lymphadenopathy Respiratory exam: Present: normal lung sounds bilaterally. Absent: respiratory distress, wheezes, rales, rhonchi, stridor Cardiovascular Exam: Present: regular rate, normal rhythm, normal heart sounds. Absent: systolic murmur, diastolic murmur, rubs, gallop, clicks GI/Abdominal exam: Present: soft, tenderness (Right upper, left upper and epigastric tenderness. ROSELIA drain in place), normal bowel sounds. Absent: distended, guarding, rebound, rigid Extremities exam: Present: normal inspection, full ROM, normal capillary refill. Absent: tenderness, pedal edema, joint swelling, calf tenderness Back exam: Present: normal inspection Neurological exam: Present: alert, oriented X3, CN II-XII intact Psychiatric exam: Present: normal affect, normal mood Skin exam: Present: warm, dry, intact, normal color. Absent: rash <Virginia Causey - Last Filed: 04/29/25 07:11> Course Vital Signs 04/29/25 04/29/25 04/29/25 04:58 06:25 08:00 Temperature 97.9 F Pulse Rate 83 78 77 Respiratory 16 16 18 Rate Blood Pressure 166/66 161/67 161/74 O2 Sat by Pulse 94 L 94 L 92 L Oximetry 04/29/25 09:16 Temperature Pulse Rate 75 Respiratory 18 Rate Blood Pressure 171/75 O2 Sat by Pulse 94 L Oximetry Medical Decision Making - Lab Data Result diagrams: 04/29/25 06:11 04/29/25 06:11 <Virginia Causey - Last Filed: 04/29/25 07:11> - Lab Data Result diagrams: 04/29/25 06:11 04/29/25 06:11 <Alexander Reynolds - Last Filed: 04/29/25 09:19> - Medical Decision Making Was pt. sent in by a medical professional or institution (, PA, CONSULTING PRACTICE DIRECTOR, urgent care, hospital, or halfway...) When possible be specific @ -Patient sent in from extended-care facility Did you speak to anyone other than the patient for history (EMS, parent, family, police, friend...)? What history was obtained from this source @ -Spoke with the daughter for history Did you review nursing and triage notes (agree or disagree)? Why? @ -I reviewed and agree with nursing and triage notes Were old charts reviewed (outside hosp., previous admission, EMS record, old EKG, old radiological studies, urgent care reports/EKG's, halfway records)? Report findings @ -Reviewed operative note from Dr. Hope from March 2025 Differential Diagnosis (chest pain, altered mental status, abdominal pain women, abdominal pain men, vaginal bleeding, weakness, fever, dyspnea, syncope, headache, dizziness, GI bleed, back pain, seizure, CVA, palpatations, mental he alth, musculoskeletal)? @ -Differential Abdominal Pain Women: Appendicitis, Cholecystitis, diverticulosis, ischemic bowel, pancreatitis, hepatitis, UTI, gastroenteritis, AAA, incarcerated hernia, bowel obstruction, constipation, inflammatory bowel, hepatitis, peptic ulcer disease, splenic infarction, perforated viscus, vulvitis, ovarian torsion, PID, kidney stone, placenta abruption, this is not meant to be an all-inclusive list EKG interpreted by me (3pts min.). @ -Not done X-rays interpreted by me (1pt min.). @ -None done CT interpreted by me (1pt min.). @ -Pending at this time U/S interpreted by me (1pt. min.). @ -None done What testing was considered but not performed or refused? (CT, X-rays, U/S, labs)? Why? @ -None What meds were considered but not given or refused? Why? @ -None Did you discuss the management of the patient with other professionals (professionals i.e. DrLuis, PA, CONSULTING PRACTICE DIRECTOR, lab, RT, psych nurse, social work faculty member, resawyer, teacher, commanding officer homicide squad, adult protective caseworker)? Give summary @ -Spoke with Dr. Reynolds - he will take over care of the patient Was smoking cessation discussed for >3mins.? @ -No Was critical care preformed (if so, how long)? @ -No Were there social determinants of health that impacted care today? How? (Homelessness, low income, unemployed, alcoholism, drug addiction, transportation, low edu. Level, literacy, decrease access to med. care, fdc, re hab)? @ -patient is at rehab Was there de-escalation of care discussed even if they declined (Discuss DNR or withdrawal of care, Hospice)? DNR status @ -No What co-morbidities impacted this encounter? (DM, HTN, Smoking, COPD, CAD, Cancer, CVA, ARF, Chemo, Hep., AIDS, mental health diagnosis, sleep apnea, morbid obesity)? @ -DVT, A-fib Was patient admitted / discharged? Hospital course, mention meds given and route, prescriptions, significant lab abnormalities, going to OR and other pertinent info. @ -Upon arrival patient seen and evaluated in room 10. Thorough history and physical exam was performed. IV was established. Laboratory studies were conducted. CT is ordered. CT pending at this time. Patient will be signed out to Dr. Reynolds (Virginia Causey) Patient signed out to me pending results of CT imaging. Patient presented to the ER with nonspecific abdominal pain. Currently does have a ROSELIA drain in place status post appendectomy from March 2025. Follows up with surgeon Dr. Hope. Was due to have an outpatient CT abdomen pelvis however patient had some abdominal discomfort which is why she was sent from [facility] for evaluation. Workup so far shows chronic anemia that is stable with a hemoglobin of 8.8. Urinalysis returned positive for UTI. Remainder the labs unremarkable including no white count elevation and normal lactic acid. Patient's drain appears to be functioning properly and has a dark discharge from it which apparently has been baseline since it was placed. No change. CT chest abdomen pelvis as interpreted by myself reveals known pleural effusion on the right, with no respiratory distress. CT also reveals a significant decrease in size of the for organized fluid collection seen on prior CT which seems to indicate that the drain is functioning. Patient has diverticulosis without diverticulitis. I updated patient. She was resting comfortably at this time. No pain. She understands she has a UTI. I contacted her surgeon, Dr. Hope and we discussed her imaging as well as labs. He was in agreement to discharge back tomorrow would and requested that patient be placed on Levaquin as well as Flagyl for the UTI, which would also cover anything intra-abdominal he empirically. Urine culture obtained and sent. Patient was in agreement this plan. Patient given dose antibiotics prior to discharge. I will provide the patient with a prescription for Flagyl, Levaquin. I instructed the patient to follow up with their PCP in the next 1-3 days. I explained that the patient should return to the emergency department if they experience any worsening symptoms. Strict return precautions were discussed with the patient. The patient expressed understanding of these instructions. I answered all questions that the patient had. The patient was discharged home in good condition with their prescriptions and follow up information. Diagnosis/symptom? @ -UTI, postop pain, pleural effusion Acute, or Chronic, or Acute on Chronic? @ -Acute Uncomplicated (without systemic symptoms) or Complicated (systemic symptoms)? @ -Uncomplicated Side effects of treatment? @ -None Exacerbation, Progression, or Severe Exacerbation] @ -No Poses a threat to life or bodily function? @ -Time (Alexander Reynolds) - Lab Data Lab Results 04/29/25 04/29/25 04/29/25 Range/Units 06:11 06:11 06:11 WBC 6.78 (4.50-10.00) 10*3/uL RBC 3.18 L (4.10-5.20) 10*6/uL Hgb 8.8 L (12.0-15.0) g/dL Hct 27.9 L (37.2-46.3) % MCV 87.7 (80.0-97.0) fL MCH 27.7 (27.0-32.0) pg MCHC 31.5 L (32.0-37.0) g/dL Plt Count 356 (140-440) 10*3/uL MPV 9.5 (9.5-12.2) fL Immature Gran % (Auto) 0.7 % Neutrophils % 56.8 % Lymphocytes % 21.2 % Monocytes % 16.7 % Eosinophils % 4.0 % Basophils % 0.6 % Immature Gran # 0.05 H (0.00-0.04) 10*3/uL Neutrophils # 3.85 (1.80-7.70) 10*3/uL Lymphocytes # 1.44 (0.90-5.00) 10*3/uL Monocytes # 1.13 H (0.20-1.00) 10*3/uL Eosinophils # 0.27 (0.04-0.35) 10*3/uL Basophils # 0.04 (0.00-0.10) 10*3/uL Sodium 136 L (137-145) mmol/L Potassium 4.8 (3.5-5.1) mmol/L Chloride 102 (98-107) mmol/L Carbon Dioxide 24 (22-30) mmol/L Anion Gap 10 mmol/L BUN 17 (7-17) mg/dL Creatinine 0.78 (0.52-1.04) mg/dL Est GFR (CKD-EPI)AfAm 81 (>60 ml/min/1.73 sqM) Est GFR (CKD-EPI)NonAf 70 (>60 ml/min/1.73 sqM) Glucose 92 (74-99) mg/dL Plasma Lactic Acid Iftikhar 1.0 (0.7-2.0) mmol/L Calcium 8.6 (8.4-10.2) mg/dL Total Bilirubin 0.9 (0.2-1.3) mg/dL AST 30 (14-36) U/L ALT 9 (4-34) U/L Alkaline Phosphatase 65 (38-126) U/L Total Protein 7.4 (6.3-8.2) g/dL Albumin 3.2 L (3.5-5.0) g/dL Lipase 104 (23-300) U/L Urine Color Urine Appearance (Clear) Urine pH (5.0-8.0) Ur Specific [place] (1.001-1.035) Urine Protein (Negative) Urine Glucose (UA) (Negative) Urine Ketones (Negative) Urine Blood (Negative) Urine Nitrite (Negative) Urine Bilirubin (Negative) Urine Urobilinogen (<2.0) mg/dL Ur Leukocyte Esterase (Negative) Urine RBC (0-5) /hpf Urine WBC (0-5) /hpf Ur Squamous Epith Cells (0-4) /hpf Urine Bacteria (None) /hpf Urine Mucus (None) /hpf Blood Type Blood Type Recheck Bld Type Recheck Status Antibody Screen Spec Expiration Date 04/29/25 04/29/25 Range/Units 06:16 07:31 WBC (4.50-10.00) 10*3/uL RBC (4.10-5.20) 10*6/uL Hgb (12.0-15.0) g/dL Hct (37.2-46.3) % MCV (80.0-97.0) fL MCH (27.0-32.0) pg MCHC (32.0-37.0) g/dL Plt Count (140-440) 10*3/uL MPV (9.5-12.2) fL Immature Gran % (Auto) % Neutrophils % % Lymphocytes % % Monocytes % % Eosinophils % % Basophils % % Immature Gran # (0.00-0.04) 10*3/uL Neutrophils # (1.80-7.70) 10*3/uL Lymphocytes # (0.90-5.00) 10*3/uL Monocytes # (0.20-1.00) 10*3/uL Eosinophils # (0.04-0.35) 10*3/uL Basophils # (0.00-0.10) 10*3/uL Sodium (137-145) mmol/L Potassium (3.5-5.1) mmol/L Chloride (98-107) mmol/L Carbon Dioxide (22-30) mmol/L Anion Gap mmol/L BUN (7-17) mg/dL Creatinine (0.52-1.04) mg/dL Est GFR (CKD-EPI)AfAm (>60 ml/min/1.73 sqM) Est GFR (CKD-EPI)NonAf (>60 ml/min/1.73 sqM) Glucose (74-99) mg/dL Plasma Lactic Acid Iftikhar (0.7-2.0) mmol/L Calcium (8.4-10.2) mg/dL Total Bilirubin (0.2-1.3) mg/dL AST (14-36) U/L ALT (4-34) U/L Alkaline Phosphatase (38-126) U/L Total Protein (6.3-8.2) g/dL Albumin (3.5-5.0) g/dL Lipase (23-300) U/L Urine Color Light Yellow Urine Appearance Cloudy H (Clear) Urine pH 6.5 (5.0-8.0) Ur Specific [place] 1.016 (1.001-1.035) Urine Protein Negative (Negative) Urine Glucose (UA) Negative (Negative) Urine Ketones Negative (Negative) Urine Blood Trace H (Negative) Urine Nitrite Positive H (Negative) Urine Bilirubin Negative (Negative) Urine Urobilinogen <2.0 (<2.0) mg/dL Ur Leukocyte Esterase Large H (Negative) Urine RBC 2 (0-5) /hpf Urine WBC 104 H (0-5) /hpf Ur Squamous Epith Cells 1 (0-4) /hpf Urine Bacteria Occasional H (None) /hpf Urine Mucus Rare H (None) /hpf Blood Type O Negative Blood Type Recheck O Neg Bld Type Recheck Status No Antibody Screen NEGATIVE Spec Expiration Date 05/02/2025 - 2315 Disposition <Virginia Causey - Last Filed: 04/29/25 07:11> Is patient prescribed a controlled substance at d/c from ED?: No Time of Disposition: 08:54 <Alexander Reynolds - Last Filed: 04/29/25 09:19> Clinical Impression: UTI (urinary tract infection), Pleural effusion, Post-op pain Disposition: HOME SELF-CARE Condition: Good Instructions (If sedation given, give patient instructions): Urinary Tract Infection in Women (DC) Additional Instructions: Follow up with Dr. Hope in the next 1-3 days. return if any worsening symptoms. Prescriptions: metroNIDAZOLE [Flagyl] 500 mg PO TID 7 Days #21 tab Levofloxacin [Levaquin] 750 mg PO DAILY 7 Days #7 tab Referrals: Chris Bella DO [Primary Care Provider] - 1-2 days Andres Hope MD [STAFF PHYSICIAN] - 1-2 days
[2025-04-29 06:59] LABS: Albumin 3.2 g/dL (3.5-5.0); Potassium 4.8 mmol/L (3.5-5.1); Total Protein 7.4 g/dL (6.3-8.2)
[2025-04-29 07:00] LABS: AST 30 U/L (14-36); Alkaline Phosphatase 65 U/L (38-126)
[2025-04-29 07:44] LABS: Bacteria,Urine Occasional /hpf; Bilirubin,Urine Negative (Negative); Blood,Urine Trace (Negative); Color,Urine Light Yellow; Glucose,Urine (UA) Negative (Negative); Ketones,Urine Negative (Negative); Leukocyte Esterase,Urine Large (Negative); Mucus,Urine Rare /hpf; Nitrite,Urine Positive (Negative); PH, Urine 6.5 (5.0-8.0); Protein,Urine Negative (Negative); RBC,Urine 2 /hpf (0-5); Specific Gravity,Urine 1.016 (1.001-1.035); Squamous Epithelial Cell,Urine 1 /hpf (0-4); Urobilinogen,Urine <2.0 mg/dL (<2.0); WBC,Urine 104 /hpf (0-5)
--- NOTE | 2025-04-29 08:26 | CT ---
EXAMINATION TYPE: CT ChestAbdPelvis w con CT DLP: 1416.4 mGycm, Automated exposure control for dose reduction was used. DATE OF EXAM: 04/29/2025 8:03 AM COMPARISON: CT chest abdomen pelvis 04/06/2025, CT-guided abscess drainage 04/10/2025 CLINICAL INDICATION:Female, 85 years old with history of abdominal pain; [facility], Appendectomy March 2025 with internal bleeding- drain in place. Pt. c/o generalized abdominal pain. Technique: Multiple axial images of the chest, abdomen, and pelvis were obtained following the intrav enous administration of 100 mL Isovue-300. Two-dimensional coronal and sagittal reconstructions were obtained. Findings: CHEST: LUNGS/ PLEURA: No pneumothorax. Increased moderate size right pleural effusion with partial atelectas is of the right middle and lower lobes. Left lung is relatively clear with some minimal subpleural at electasis. Elevation of the right hemidiaphragm. AIRWAY: Patent and unremarkable.. HEART: Cardiomegaly is demonstrated.Dense mitral annulus calcifications.. No pericardial effusion. No significant coronary artery calcifications. MEDIASTINUM: Stable enlarged precarinal 1.4 cm lymph node. Probably reactive. VASCULATURE: No aortic aneurysm. Mild atherosclerotic calcification of the aorta and its branches. MUSCULOSKELETAL: No acute osseous abnormalities. Bilateral shoulder arthroplasty changes with right g reater than left. SOFT TISSUES/LYMPH NODES: Unremarkable. LOWER NECK: No significant findings. ABDOMEN: ABDOMEN LIVER: Right hepatic lobe stable 1.7 cm cyst. GALLBLADDER AND BILE DUCTS: The gallbladder is surgically absent. PANCREAS: Unremarkable. SPLEEN: Unremarkable. ADRENAL GLANDS: Unremarkable. KIDNEYS AND URETERS: No evidence of hydronephrosis or renal calculus. The kidneys enhance symmetrical ly. Contrast is demonstrated within both collecting systems on the delayed phase. PELVIS BLADDER: Unremarkable REPRODUCTIVE: The uterus is surgically absent. Stable right ovarian 2.7 cm cyst. ABDOMEN & PELVIS STOMACH AND BOWEL: Small hiatal hernia, duodenum is unremarkable. Postsurgical changes from appendect yong. Sigmoid diverticulosis without evidence for acute diverticulitis. No evidence of bowel obstructi on. PERITONEUM: No evidence of pneumoperitoneum. Decreased size of well-circumscribed enhancing wall flui d collection within the right paracolic gutter extending from beneath the right hepatic lobe. This me asures 3.1 x 1.7 x 7.8 cm with pleural pigtail catheter in place. Previously measured grossly 9.3 x 3 .8 x 14.8 cm. There are 2 decreased well-circumscribed perirectal fluid collections with the right me asuring 2.4 x 1.5 cm, previously 5.9 x 2.5 cm. The left measures 1.8 x 1.3 cm, previously 3.4 x 2.8 c m. Decreased size of posterior right perihepatic fluid collection measuring up to 2.0 cm, previously measured up to 3.4 cm. No new fluid collections identified. None of these collections demonstrate int ernal gas. VASCULATURE: Mild to moderate atherosclerotic calcifications are present throughout the abdominal aor ta and its branches. No abdominal aortic aneurysm. MUSCULOSKELETAL: No acute osseous abnormalities. Postsurgical changes from right hip arthroplasty. Th ere is adjacent subcutaneous edema/stranding. Chronic compression deformity of the L1 vertebral body with approximately 2 mm retropulsion of 5 mm of height loss centrally. Grade 1 anterolisthesis of L4 on L5 with evidence of pars defects. Schmorl's node involving the inferior endplate of the L3 vertebr al body. LYMPH NODES: No gross evidence for lymphadenopathy. SOFT TISSUE/ABDOMINAL WALL: Postsurgical changes of the anterior abdominal wall with right lower quad rant anterior approach pigtail catheter. IMPRESSION: 1. Significant decrease size of 4 organized fluid collections from prior examination within the abdo men and pelvis, probable abscesses. The largest within the right paracolic gutter demonstrates a pleu ral pigtail catheter. 2. Increased moderate size right pleural effusion with associated atelectasis. 3. Sigmoid diverticulosis without evidence for acute diverticulitis. [facility], , 04/29/2025 8:23 AM
[2025-04-29 08:29] VITALS: RESP 18
[2025-04-29] MEDS: LEVOFLOXACIN 750 MG TAB PO STA (09:03)
[2025-04-29] MEDS: metroNIDAZOLE 500 MG TAB PO STA (09:04)
[2025-04-29 09:17] VITALS: BP 171/75; PULSE 75
== END 2025-04-29 09:44 | disposition home or self-care (01) ==
LOC: EC 04:55
DX: G89.18 Other acute postprocedural pain (principal); J90 Pleural effusion, not elsewhere classified; N39.0 Urinary tract infection, site not specified; I48.91 Unspecified atrial fibrillation; I82.409 Acute embolism and thrombosis of unspecified deep veins of unspecified lower extremity; Z88.2 Allergy status to sulfonamides
CPT/HCPCS: 36415; 86900; 86901; 80053; 83605; 83690; 85025; 86850; 81001; 87086; 71260; 74177; 99285; Q9967